=== PATIENT | female | born 1955 | race Caucasian/White ===

== ENCOUNTER 2020-08-27 08:34 | Outpatient (REF) | payer MEDICARE, MEDICAID, SELFPAY ==
--- NOTE | 2020-08-27 | MM_ITS ---
EXAMINATION: ULTRASOUND GUIDED CORE BIOPSY BREAST, LEFT POST PROCEDURE DIGITAL MAMMOGRAM, LEFT CLINICAL INFORMATION: Suspicious periareolar mass 1:00 left breast with ill-defined margins and posterior shadowing. COMPARISON: Mammography 08/03/2020, 08/16/2020, targeted left breast ultrasound 08/16/2020. FINDINGS: Proper informed consent is obtained from the patient after discussion of the procedure, potential risks and complications, and alternatives. Patient was given an opportunity for questions. The patient appeared to understand. The patient consented to the procedure and signed the consent form. GUIDANCE: Ultrasound-guided; aseptic technique. LESION: 1:00 retroareolar mass approximately 2 cm. APPROACH: Oblique lateral medial. LOCAL ANESTHESIA: 17 mL 1% lidocaine. DERMATOTOMY: Single skin nakul dermatotomy performed. NEEDLE: 14-gauge Achieve core biopsy device with 13.5-gauge co-axial guide needle. CORES: 6. CLIP: HydroMARK; shape: butterfly. POST PROCEDURE UNILATERAL DIGITAL MAMMOGRAM: The post biopsy mammogram is performed in separate room using separate digital mammography equipment from the biopsy procedure. CC and ML views are obtained. There are scattered areas of fibroglandular density (breast composition category: b). The clip marker is in position. No gross hematoma. The patient tolerated the procedure well. No immediate complications. Home instructions reviewed with the patient. Final pathology results are pending. MM/MM diagnostic mammo unilat LT IMPRESSION: 1. Status post ultrasound-guided core biopsy left breast. 2. Clip placed: HydroMARK; shape: butterfly. 3. Pathology pending. An addendum report will be issued.
== END 2020-08-27 08:35 | disposition home or self-care (01) ==
LOC: HO.MAMMO 08:34
PROVIDERS: PCP Internal Medicine; Visit Provider Surgery
DX: R92.8 Other abnormal and inconclusive findings on diagnostic imaging of breast (principal); D05.12 Intraductal carcinoma in situ of left breast; Z17.0 Estrogen receptor positive status [ER+]
CPT/HCPCS: 19083; 77065; 88305; 88341; 88342; 88360; 99203

== ENCOUNTER → 2020-09-01 14:09 | Outpatient (BNVA) | payer MEDICARE, MEDICAID, SELFPAY | PROVIDERS: PCP Internal Medicine; Visit Provider Surgery | DX: C50.912 Malignant neoplasm of unspecified site of left female breast (principal); Z98.890 Other specified postprocedural states; Z94.4 Liver transplant status | CPT/HCPCS: 99213 ==

== ENCOUNTER → 2020-09-02 14:30 | Outpatient (BNVA) | payer MEDICARE, MEDICAID, SELFPAY | PROVIDERS: PCP Internal Medicine; Referring Provider Internal Medicine; Visit Provider Internal Medicine Endocrinology, Diabetes & Metabolism | DX: E11.65 Type 2 diabetes mellitus with hyperglycemia (principal); E11.22 Type 2 diabetes mellitus with diabetic chronic kidney disease; N18.30 Chronic kidney disease, stage 3 unspecified; Z79.4 Long term (current) use of insulin; M81.0 Age-related osteoporosis without current pathological fracture; E03.9 Hypothyroidism, unspecified; Z79.899 Other long term (current) drug therapy; Z94.0 Kidney transplant status | CPT/HCPCS: 82947; 99214 ==

== ENCOUNTER 2020-09-16 08:04 | Outpatient (REF) | payer MEDICARE, MEDICAID, SELFPAY | END 2020-09-16 08:05 | disposition home or self-care (01) | LOC: HO.MAMMO 08:04 | PROVIDERS: PCP Internal Medicine; Visit Provider Surgery | DX: Z13.89 Encounter for screening for other disorder (principal) | CPT/HCPCS: J2250; J3010 ==

== ENCOUNTER 2020-09-16 14:09 | Day surgery (SDC) | payer MEDICARE, MEDICAID, SELFPAY ==
--- NOTE | 2020-09-15 08:44 | HO.ANESPROP2 ---
Documented by User: Kathryn Hernandez 09/15/20 08:57 HPI - Anesthesia Eval Consult details Narrative: 64yo F for L sentinal node biopsy with needle localization and L breast lumpectomy PMFSH Past Medical History Medical History (Updated 09/15/20 @ 08:57 by Kathryn Hernandez) Age-related osteoporosis without current pathological fracture Cerebral palsy Chronic kidney disease, stage 3 unspecified Class 1 obesity with body mass index (BMI) of 30.0 to 30.9 in adult Developmental disability Diabetes type 2, uncontrolled Ductal carcinoma in situ of left breast Essential (primary) hypertension Hyperlipidemia, unspecified Hypothyroidism, unspecified Invasive ductal carcinoma of left breast [employer]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 Surgical History Surgical History (Updated 09/15/20 @ 08:57 by Kathryn Hernandez) History of breast surgery History of liver transplant History of splenectomy Social History Social History Alcohol intake: never Smoking Status: Never smoker Second Hand Smoke Exposure: No Advance Directives: No Advance Directives Information Provided: No Meds Allergies Allergy/AdvReac Type Severity Reaction Status Date / Time Peanut Butter Allergy Mild Rash Verified 09/16/20 09:01 PEANUT BUTTER Allergy Mild RASH Uncoded 09/16/20 09:01 Home Medications Medication Instructions Recorded Confirmed Type alcohol swabs pad TOPICAL 08/21/20 09/02/20 History allopurinol 300 mg tablet 300 mg PO DAILY 08/21/20 09/02/20 History blood sugar diagnostic #10 ea 08/21/20 09/02/20 History clonidine HCl 0.3 mg tablet 0.3 mg PO BEDTIME 08/21/20 09/02/20 History furosemide 20 mg tablet 20 mg PO DAILY 08/21/20 09/02/20 History lancets 28 gauge #100 ea 08/21/20 09/02/20 History mycophenolate mofetil 250 mg 250 mg PO BID 08/21/20 09/02/20 History capsule omega-3 fatty acids 1,000 mg 1,000 mg PO DAILY 08/21/20 09/02/20 History capsule pediatric multivitamin 1 tab PO DAILY 08/21/20 09/02/20 History tacrolimus 0.5 mg capsule 0.5 mg PO BID 08/21/20 09/02/20 History aspirin 81 mg tablet,delayed 81 mg PO DAILY 09/02/20 09/02/20 History release Exam Exam Date and Time: September 15, 2020 0844 Pertinent Lab Results Pertinent Lab Results: Laboratory Tests 07/27/20 07/27/20 07/27/20 06:50 06:50 06:50 WBC 13.7 H Hgb 14.1 Hct 43.4 Plt Count 352 Sodium 139 Potassium 4.8 Chloride 105 Bicarbonate 25 Anion Gap 14 BUN 37 H Creatinine 1.18 Est GFR (Non-Af Amer) 46 Fasting Glucose 146 H Hgb A1c (Clinic) Calcium 9.7 Magnesium 1.9 Total Bilirubin 0.4 AST 35 H ALT 48 H Alkaline Phosphatase 148 H Total Protein 7.2 Albumin 3.9 Tacrolimus 2.9 H 09/02/20 15:01 WBC Hgb Hct Plt Count Sodium Potassium Chloride Bicarbonate Anion Gap BUN Creatinine Est GFR (Non-Af Amer) Fasting Glucose Hgb A1c (Clinic) 8.5 H Calcium Magnesium Total Bilirubin AST ALT Alkaline Phosphatase Total Protein Albumin Tacrolimus Assessment and Plan Assessment Anesthesia Assessment: Chart Reviewed Documented by User: Marco Antonio Brown MD 09/16/20 13:40 [facility] Past Medical History Medical History (Updated 09/15/20 @ 08:57 by Kathryn Hernandez) Age-related osteoporosis without current pathological fracture Cerebral palsy Chronic kidney disease, stage 3 unspecified Class 1 obesity with body mass index (BMI) of 30.0 to 30.9 in adult Developmental disability Diabetes type 2, uncontrolled Ductal carcinoma in situ of left breast Essential (primary) hypertension Hyperlipidemia, unspecified Hypothyroidism, unspecified Invasive ductal carcinoma of left breast [facility] (current) use of insulin Type 2 diabetes mellitus with diabetic nephropathy Family History Family History Father Aneurysm Mother Cancer Paternal Grandfather Diabetes Brother No problems noted. Surgical History Surgical History (Updated 09/15/20 @ 08:57 by Kathryn Hernandez) History of breast surgery History of liver transplant History of splenectomy Social History Social History Alcohol intake: never Smoking Status: Never smoker Second Hand Smoke Exposure: No Advance Directives: No Advance Directives Information Provided: No Meds Allergies Allergy/AdvReac Type Severity Reaction Status Date / Time Peanut Butter Allergy Mild Rash Verified 09/16/20 09:01 PEANUT BUTTER Allergy Mild RASH Uncoded 09/16/20 09:01 Home Medications Medication Instructions Recorded Confirmed Type alcohol swabs pad TOPICAL 08/21/20 09/02/20 History allopurinol 300 mg tablet 300 mg PO DAILY 08/21/20 09/02/20 History blood sugar diagnostic #10 ea 08/21/20 09/02/20 History clonidine HCl 0.3 mg tablet 0.3 mg PO BEDTIME 08/21/20 09/02/20 History furosemide 20 mg tablet 20 mg PO DAILY 08/21/20 09/02/20 History lancets 28 gauge #100 ea 08/21/20 09/02/20 History mycophenolate mofetil 250 mg 250 mg PO BID 08/21/20 09/02/20 History capsule omega-3 fatty acids 1,000 mg 1,000 mg PO DAILY 08/21/20 09/02/20 History capsule pediatric multivitamin 1 tab PO DAILY 08/21/20 09/02/20 History tacrolimus 0.5 mg capsule 0.5 mg PO BID 08/21/20 09/02/20 History aspirin 81 mg tablet,delayed 81 mg PO DAILY 09/02/20 09/02/20 History release Exam Airway Mallampati Class: I TM Dist: >3cm Neck ROM: Full Loose/Missing/Broken Teeth: No Heart: rrr Lungs: nl Other: ao Assessment and Plan Assessment Anesthesia Assessment: Anesthesia Plan Discussed and Chart Reviewed Final Anesthetic Review NPO: Yes ASA Class: III Final Preanesthetic Review: No Changes in Pt Med Stat, Meds/Allgs Chart Reviewed, Consent Obtained/Reviewed (Pt signs for herself according to brother Chuck; understands that she will be put to sleep for the procedure) and Anes Risks/Benef Reviewed Patient Risk: Intermediate Procedure Risk: Intermediate Anesthetic Plan Anesthetic Plan: GA Disposition: Standard PACU
[2020-09-15 11:11] VITALS: BMI 31.4
[2020-09-16] VITALS (9 sets, daily range): BP systolic 111–138; BP diastolic 65–73; PULSE 85–104; RESP 14–18; TEMP 36.1–36.3; O2SAT 94–98
--- NOTE | 2020-09-16 | MM_ITS ---
EXAMINATION: MM MAMMOGRAM GUIDED NEEDLE LOCALIZATION BREAST, LEFT MM NEEDLE LOCALIZATION SPECIMEN FROM THE LEFT BREAST CLINICAL INFORMATION: Invasive ductal carcinoma COMPARISON: August 27, 2020 TECHNIQUE NEEDLE LOC: Proper informed consent is obtained from the patient after discussion of the procedure, potential risks and complications, and alternatives including declining the procedure today. Patient was given an opportunity for questions. The patient appeared to understand. The patient consented to the procedure and signed the consent form. GUIDANCE: Digital mammography. APPROACH: Superior. TARGET: Clip. ANESTHESIA: lidocaine 1%: 3 mL. LOCALIZATION MARKER: Spring MammaLok. 5 cm long needle The skin is prepped and local anesthesia administered. The needle is positioned and position assessed with mammography. The wire is hooked into position. [place] needle protector placed. The patient tolerated the procedure well and had no immediate complication. TECHNIQUE SPECIMEN RADIOGRAPH: Imaging of the excised specimen is performed using digital mammography in 1 view. FINDINGS SPECIMEN RADIOGRAPH: The specimen shows the needle and hookwire are delivered intact. The biopsy clip marker and index calcifications are identified in the specimen. Results were called to Dr. Prashant Hus in the operating room at the time of imaging. MM/MM needle loc LT IMPRESSION: 1. Status post left breast needle localization with wire hooked into position. 2. Post operative specimen radiograph obtained.
--- NOTE | 2020-09-16 | NM_ITS ---
EXAMINATION: NM LYMPH SCINTIGRAPHY CLINICAL INFORMATION: Invasive ductal carcinoma left breast. COMPARISON: None TECHNIQUE: Following explaining procedure, benefits and risk, a written consent was obtained from the patient. 2% lidocaine jelly was placed along the left breast areola 30 minutes prior to the procedure. The 2% lidocaine jelly was then cleaned and draped in usual sterile manner. A 0.5 mCi of lymphoseek divided in 4 equal doses was injected in 4 quadrants around the left breast areola. Imaging was obtained at 30 minutes and 1 hour postinjection. Patient tolerated procedure extremely well. FINDINGS: Isotope activity seen on the left breast area in the 4 quadrants post injection. At 1 hour there is trace activity seen along the left anterior axilla. No activity is seen at 30 minutes. NM/NM sentinel node w imaging IMPRESSION: Left breast lymphoscintigraphy reveals subtle sentinel node in the left anterior axilla.
[2020-09-16] MEDS: ceFAZolin Sodium/Dextrose,Iso 2 GM/50 ML PIGGYBACK IV (08:54)
[2020-09-16] MEDS: Lactated Ringers 1,000 ML 100 ML IVCONT (08:55)
--- NOTE | 2020-09-16 09:21 | PC.NURSE ---
PATIENTS RIDE WAS LATE TO HER APPT. SPOKE TO BROTHER RENETTA AND HE STATES THAT SHE IS ABLE TO SIGN FOR HERSELF. PATIENTS STATES SHE SIGNS FOR HERSELF. PATIENT IS COMPETANT. PATIENT STATED SHE FELT SLEEPY AND RETOOK HER POC 162 AT 0918. ASYMPTOMATIC TO ALL OTHER HYPOGLYCEMIA. PATIENTS BROTHER SPOKE TO THE NURSE WHO GIVES HER MEDS AND THEY GAVE HER ALL HER AM MEDS INCLUDING 10 UNITS OF INSULIN. NO METFORMIN NO ASA NO REPIGNOLIDE. PER RENETTA HER BROTHER THE FACILITY GAVE 10UNITS THIS AM PER HER ENDOCRONOLIST. PATIENTS DOESNT HAVE A HEALTH CARE PROXY THAT HE IS AWARE OF BUT WAS TOLD HE AND THE PATIENT CAN FILL ONE OUT TOGETHER FOR FUTURE.
--- NOTE | 2020-09-16 10:50 | PC.NURSE ---
PATIENT BACK FROM NEEDLE LOC. LAYING ON RIGHT SIDE COMFORTABLY. RECHECKING BLOOD SUGAR DUE TO FASTING.
--- NOTE | 2020-09-16 12:10 | PC.NURSE ---
patient off unit again because lymph nodes were not visualized. md chiu aware.
[2020-09-16 12:34] LABS: Glucose, Whole Blood 127 mg/dL (60-115)
[2020-09-16 12:36] LABS: Glucose, Whole Blood 162 mg/dL (60-115)
[2020-09-16 12:38] LABS: Glucose, Whole Blood 131 mg/dL (60-115)
[2020-09-16 12:49] LABS: Glucose, Whole Blood 100 mg/dL (60-115)
--- NOTE | 2020-09-16 13:54 | MHC.SHP ---
Pre-Procedural Eval Section A The patient is an INPATIENT: No Changes since office visit: Yes Patient answered all questions; No Cold of Flu in the past 2 weeks, No New Medical Problems and No Changes in Medication The History & Physical has been completed within 30 days and I have reviewed it.: Yes Section B Chief Complaint: Invasive Ductal Carcinoma of Left Breast Allergies: Allergies Allergy/AdvReac Type Severity Reaction Status Date / Time Peanut Butter Allergy Mild Rash Verified 09/16/20 09:01 PEANUT BUTTER Allergy Mild RASH Uncoded 09/16/20 09:01 Plan Diagnosis/Plan: Unchanged Patient has been examined and remains a candidate for the planned procedure
--- NOTE | 2020-09-16 15:34 | P.BOP_ITS ---
Brief Operative Note Date of procedure: 09/16/20 Pre-op diagnosis: Left breast invasive ductal carcinoma Post-op diagnosis: same Procedure: left breast lumpectomy with needle localization, sentinel node biopsy left axilla Implants: non Surgeon: Prashant Hsu MD Anesthesia: GETA Seal Delivery Vehicle Officer: Alexa Rutherford Estimated blood loss (mL): 20 Pathology: other ( left breast lump, left axillary lymphadenopathy, left sentinel node ( 58 count )) Condition: stable Disposition: PACU
--- NOTE | 2020-09-16 15:36 | W.PM.OPN ---
Operative Note Operative Note Narrative: Date of procedure: 09/16/20 Pre-op diagnosis: Left breast invasive ductal carcinoma Post-op diagnosis: same Procedure: left breast lumpectomy with needle localization, sentinel node biopsy left axilla Indications for procedure: Patient is a 64-year-old female presenting with a recent mammogram which revealed a spiculated mass in the left breast below the nipple. On examination she has a palpable mass with nipple retraction corresponding to the mammographic findings. Radiographic guided core biopsy revealed invasive ductal carcinoma. She presents today for a lumpectomy with needle localization, sentinel node biopsy. Operative findings: Patient was found to have a palpable mass located just below the nipple with possible extension of tumor into the nipple. Minimal radio activity was noted within the axilla. A single sentinel node was identified with very low counts of 58. approximately 4 hard enlarged nodes were identified and sent as left axillary lymphadenopathy Complications: None Procedure details: Patient was brought to the OR placed in a supine position. After administering general anesthesia the patient's left breast and axilla were prepped with ChloraPrep and draped in sterile fashion. A surgical time-out was called and consent confirmed. Patient received preoperative antibiotics and Venodyne boots were in place. Patient had previously undergone localization in the radiology department with the needle in the upper outer quadrant. [place] node identification was also performed in nuclear medicine. Local anesthesia consisting of 0.75% Sensorcaine with epinephrine was then infiltrated around the needle in a curvilinear fashion. Incision was then created around the needle and carried out through subcutaneous tissue. Superior and inferior skin flaps were then created with electrocautery and sharp dissection. Hemostasis was assured using electrocautery and free ties of 3 0 Polysorb suture. Dissection was continued down to chest wall. The specimen was dissected off the chest wall was dissected off the nipple. The possibility of tumor being left nipple was raised. Specimens sent to pathology for further examination. Specimen x-ray confirmed the spiculated mass and localizing needle and clip. Attention was then directed to the axilla. Scanning of the axilla with the gamma probe revealed minimal radio activity. Small amount was noted in the apex of the axilla therefore a curvilinear incision was made just below the hairline in the anterior axillary compartment. This was carried out through subcutaneous tissue passed clavipectoral fascia. Palpation within the axilla revealed approximately 4 enlarged lymph nodes which appeared to be possibly containing metastatic disease. Each was sent as a specimen labeled left axillary lymphadenopathy. Further scanning of the axilla revealed 1 single hot node with a count of approximately 58. This was excised and sent as sentinel node 1. After assuring adequate hemostasis the deep clavipectoral fascia was closed using interrupted 3 0 Polysorb sutures. The superficial breast tissue and axillary tissue was closed using interrupted 3 0 Polysorb sutures. Dermis was reapproximated using interrupted 3 0 Polysorb sutures. Skin was closed in both incisions using a running subcuticular 4 0 Polysorb suture. Steri-Strips 4 x 4 gauze and Tegaderm were then applied. The patient tolerated the procedure well. Sponge instrument needle counts reported as correct. Patient was transferred to PACU in stable condition. Implants: none Surgeon: Prashant Hsu MD Anesthesia: TEGAN Draftsperson: Alexa Rutherford Estimated blood loss (mL): 20 Pathology: other ( left breast lump, left axillary lymphadenopathy, left sentinel node ( 58 count )) Condition: stable Disposition: PACU Breast [place] Node Biopsy Substrate(s) used for sentinel node biopsy in the non-neoadjuvant setting: Radiotracer Substrate(s) used for sentinel node biopsy in the neoadjuvant setting: N/A All colored nodes or non-colored nodes present at the end of a dye filled lymphatic channel were removed, if dye was used as the substrate for localization: N/A All significantly radioactive nodes were removed, if radionuclide was used as the substrate for localization: Yes All palpably suspicious nodes were removed, if present: Yes If clips were placed in pathology-involved nodes, those nodes were identified and removed: Yes General Surg. - Synoptic Notes Breast [place] Node Biopsy Substrate(s) used for sentinel node biopsy in the non-neoadjuvant setting: Radiotracer Substrate(s) used for sentinel node biopsy in the neoadjuvant setting: N/A All colored nodes or non-colored nodes present at the end of a dye filled lymphatic channel were removed, if dye was used as the substrate for localization: N/A All significantly radioactive nodes were removed, if radionuclide was used as the substrate for localization: Yes All palpably suspicious nodes were removed, if present: Yes If clips were placed in pathology-involved nodes, those nodes were identified and removed: Yes
[2020-09-16 16:26] LABS: Glucose, Whole Blood 124 mg/dL (60-115)
--- NOTE | 2020-09-16 17:02 | PC.NURSE ---
RENETTA AN, REVIEWED DISCHARGE INSTRUCTIONS. PER BROTHER PATIENT HAS DAILY NURSING CARE VISIT HER AT HOME SO WILL MONITOR
--- NOTE | 2020-09-16 17:12 | PC.NURSE ---
PATIENT AMBULATED TO BATHROOM STEADY GAIT NO COMPLAINTS OF DIZZINESS. [id number]. LEFT BREAST DRESSING REMAINS CLEAN DRY AND IN PLACE. ASSISTED TO DRESS AT BEDSIDE
[2020-09-17 07:33] LABS: Glucose, Whole Blood 124 mg/dL (60-115)
== END 2020-09-16 17:30 | disposition home or self-care (01) ==
PROVIDERS: PCP Internal Medicine; Visit Provider Surgery
PROC: (CPT 19301; principal; 2020-09-16 12:10)
PROC: (CPT 19301; 2020-09-16 12:10)
DX: C50.912 Malignant neoplasm of unspecified site of left female breast (principal); C77.3 Secondary and unspecified malignant neoplasm of axilla and upper limb lymph nodes; Z17.0 Estrogen receptor positive status [ER+]; M81.0 Age-related osteoporosis without current pathological fracture; G80.9 Cerebral palsy, unspecified; E11.22 Type 2 diabetes mellitus with diabetic chronic kidney disease; E11.21 Type 2 diabetes mellitus with diabetic nephropathy; I12.9 Hypertensive chronic kidney disease with stage 1 through stage 4 chronic kidney disease, or unspecified chronic kidney disease; N18.30 Chronic kidney disease, stage 3 unspecified; Z94.4 Liver transplant status; Z90.81 Acquired absence of spleen; Z79.4 Long term (current) use of insulin; Z79.82 Long term (current) use of aspirin; Z79.899 Other long term (current) drug therapy; Z91.010 Allergy to peanuts
CPT/HCPCS: 19301; 38525; 19281; 78195; 82947; 88305; 88307; 88329; 88341; 88342; A4648; A9520; J0690; J1100; J2250; J2405; J3010

== ENCOUNTER → 2020-09-28 14:17 | Outpatient (BNVA) | payer MEDICARE, MEDICAID, SELFPAY | PROVIDERS: PCP Internal Medicine; Visit Provider Surgery | DX: Z48.3 Aftercare following surgery for neoplasm (principal); C50.912 Malignant neoplasm of unspecified site of left female breast | CPT/HCPCS: 99212 ==

== ENCOUNTER 2020-10-07 07:39 | Inpatient (IN) | payer MEDICARE, MEDICAID, SELFPAY ==
--- NOTE | 2020-10-05 14:42 | P.CONAN_ITS ---
Documented by User: Kathryn Hernandez 10/05/20 14:45 HPI - Anesthesia Eval Consult details Narrative: 65yo F for Mastectomy Modified Radical, LEFT s/p L breast lumpectomy 09/16/20 with GA-LMA 4 PMFSH Past Medical History Medical History (Updated 10/05/20 @ 14:44 by Kathryn Hernandez) Abnormal ultrasound of breast Age-related osteoporosis without current pathological fracture Cerebral palsy Chronic kidney disease, stage 3 unspecified Class 1 obesity with body mass index (BMI) of 30.0 to 30.9 in adult Developmental disability Diabetes type 2, uncontrolled Ductal carcinoma in situ of left breast Essential (primary) hypertension Hyperlipidemia, unspecified Hypothyroidism, unspecified 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 Surgical History Surgical History (Updated 10/04/20 @ 09:22 by Josette Anders) History of breast surgery History of liver transplant History of splenectomy S/P breast lumpectomy Social History Social History Alcohol intake: never Smoking Status: Never smoker Second Hand Smoke Exposure: No Use of substances other than those prescribed or required for medical reasons: No Advance Directives: No Advance Directives Information Provided: Yes Meds Allergies Allergy/AdvReac Type Severity Reaction Status Date / Time Peanut Butter Allergy Mild Rash Verified 09/16/20 09:01 Home Medications Medication Instructions Recorded Confirmed Type alcohol swabs pad TOPICAL 08/21/20 09/02/20 History allopurinol 300 mg tablet 300 mg PO DAILY 08/21/20 10/04/20 History blood sugar diagnostic #10 ea 08/21/20 09/02/20 History clonidine HCl 0.3 mg tablet 0.3 mg PO BEDTIME 08/21/20 10/04/20 History furosemide 20 mg tablet 20 mg PO DAILY 08/21/20 10/04/20 History lancets 28 gauge #100 ea 08/21/20 09/02/20 History mycophenolate mofetil 250 mg 250 mg PO BID 08/21/20 10/04/20 History capsule omega-3 fatty acids 1,000 mg 1,000 mg PO DAILY 08/21/20 10/04/20 History capsule pediatric multivitamin 1 tab PO DAILY 08/21/20 10/04/20 History tacrolimus 0.5 mg capsule 0.5 mg PO BID 08/21/20 10/04/20 History aspirin 81 mg tablet,delayed 81 mg PO DAILY 09/02/20 10/04/20 History release Tresiba FlexTouch U-100 20 unit SUBCUT QAM 10/04/20 History Exam Exam Date and Time: October 05, 2020 1442 Pertinent Lab Results Pertinent Lab Results: Laboratory Tests 07/27/20 07/27/20 06:50 06:50 WBC 13.7 H Hgb 14.1 Hct 43.4 Plt Count 352 Sodium 139 Potassium 4.8 Chloride 105 BUN 37 H Creatinine 1.18 Assessment and Plan Assessment Anesthesia Assessment: Chart Reviewed Documented by User: Merlin Hernandez 10/07/20 09:21 [facility] Past Medical History Medical History (Updated 10/05/20 @ 14:44 by Kathryn Hernandez) Abnormal ultrasound of breast Age-related osteoporosis without current pathological fracture Cerebral palsy Chronic kidney disease, stage 3 unspecified Class 1 obesity with body mass index (BMI) of 30.0 to 30.9 in adult Developmental disability Diabetes type 2, uncontrolled Ductal carcinoma in situ of left breast Essential (primary) hypertension Hyperlipidemia, unspecified Hypothyroidism, unspecified Invasive ductal carcinoma of left breast assisted (current) use of insulin Type 2 diabetes mellitus with diabetic nephropathy Family History Family History Father Aneurysm Mother Cancer Paternal Grandfather Diabetes Brother No problems noted. Surgical History Surgical History (Updated 10/04/20 @ 09:22 by Josette Anders) History of breast surgery History of liver transplant History of splenectomy S/P breast lumpectomy Social History Social History Alcohol intake: never Smoking Status: Never smoker Second Hand Smoke Exposure: No Use of substances other than those prescribed or required for medical reasons: No Advance Directives: No Advance Directives Information Provided: Yes Meds Allergies Allergy/AdvReac Type Severity Reaction Status Date / Time Peanut Butter Allergy Mild Rash Verified 09/16/20 09:01 Home Medications Medication Instructions Recorded Confirmed Type alcohol swabs pad TOPICAL 08/21/20 09/02/20 History allopurinol 300 mg tablet 300 mg PO DAILY 08/21/20 10/04/20 History blood sugar diagnostic #10 ea 08/21/20 09/02/20 History clonidine HCl 0.3 mg tablet 0.3 mg PO BEDTIME 08/21/20 10/04/20 History furosemide 20 mg tablet 20 mg PO DAILY 08/21/20 10/04/20 History lancets 28 gauge #100 ea 08/21/20 09/02/20 History mycophenolate mofetil 250 mg 250 mg PO BID 08/21/20 10/04/20 History capsule omega-3 fatty acids 1,000 mg 1,000 mg PO DAILY 08/21/20 10/04/20 History capsule pediatric multivitamin 1 tab PO DAILY 08/21/20 10/04/20 History tacrolimus 0.5 mg capsule 0.5 mg PO BID 08/21/20 10/04/20 History aspirin 81 mg tablet,delayed 81 mg PO DAILY 09/02/20 10/04/20 History release Tresiba FlexTouch U-100 20 unit SUBCUT QAM 10/04/20 History Exam Airway Mallampati Class: I TM Dist: <=3cm Neck ROM: Full Loose/Missing/Broken Teeth: Yes Assessment and Plan Assessment Anesthesia Assessment: Anesthesia Plan Discussed and Chart Reviewed Final Anesthetic Review NPO: Yes ASA Class: IV Final Preanesthetic Review: No Changes in Pt Med Stat, Meds/Allgs Chart Reviewed, Consent Obtained/Reviewed and Anes Risks/Benef Reviewed Patient Risk: High Procedure Risk: Intermediate Anesthetic Plan Anesthetic Plan: GA and Agree w/ Assess. and Plan Disposition: Standard PACU
[2020-10-07] VITALS (24 sets, daily range): BP systolic 68–139; BP diastolic 37–74; PULSE 71–96; RESP 12–25; TEMP 35.6–38.1; O2SAT 90–100; BMI 31.6
--- NOTE | 2020-10-07 | XR_ITS ---
EXAMINATION: XR CHEST CLINICAL INFORMATION: ET tube placement. COMPARISON: Chest x-ray 11/14/2007 TECHNIQUE: Frontal portable view of the chest was obtained. 5:49 PM FINDINGS: Tubes and lines: 1. Endotracheal tube 2.6 cm above corbin. 2. Right IJ catheter tip at cavoatrial junction. 3. Gastric tube in stomach passing below lower margin of the film. Surgical skin clips in the left axillary region. There are 2 surgical drains over the left axilla and lower chest. No acute abnormality. No pulmonary vascular congestion. No focal consolidation, no pleural effusion pneumothorax. XR/XR chest 1V IMPRESSION: 1. Endotracheal tube 2.6 cm above corbin. 2. Right IJ catheter tip at cavoatrial junction. 3. Gastric tube in stomach passing below lower margin of the film. 4. Postsurgical change of left axilla/chest wall. 5. Lungs are clear.
[2020-10-07 08:19] LABS: COVID-19 Test Negative (Negative); IDNOW Serial# 9DD0AD1C
[2020-10-07] MEDS: ceFAZolin Sodium/Dextrose,Iso 2 GM/50 ML PIGGYBACK IV (08:19)
[2020-10-07] MEDS: Lactated Ringers 1,000 ML 100 ML IVCONT (08:19)
--- NOTE | 2020-10-07 09:03 | MHC.SHP ---
Pre-Procedural Eval Section A The patient is an INPATIENT: No Changes since office visit: Yes Patient answered all questions; No Cold of Flu in the past 2 weeks, No New Medical Problems and No Changes in Medication The History & Physical has been completed within 30 days and I have reviewed it.: Yes Section B Chief Complaint: s/p left radical mastectomy Allergies: Allergies Allergy/AdvReac Type Severity Reaction Status Date / Time Peanut Butter Allergy Mild Rash Verified 09/16/20 09:01 Plan Diagnosis/Plan: Unchanged Patient has been examined and remains a candidate for the planned procedure
--- NOTE | 2020-10-07 09:10 | PM.OP ---
Brief Operative Note Date of Service: 10/07/20 Pre-op diagnosis: Invasive ductal carcinoma left breast Post-op diagnosis: same Procedure: Modified radical mastectomy left breast Implants: None Surgeon: Prashant Hsu MD Anesthesia: GETA Estimated blood loss (mL): 25
[2020-10-07 09:23] LABS: Glucose, Whole Blood 138 mg/dL (60-115)
--- NOTE | 2020-10-07 12:17 | PM.OP ---
Brief Operative Note Date of Service: 10/07/20 Pre-op diagnosis: Invasive ductal ca, left breast Post-op diagnosis: same Procedure: Left modified radical mastectomy Implants: none Surgeon: Prashant Hsu MD Anesthesia: GLMA Estimated blood loss (mL): 25 Pathology: other (left breast and axilla) Condition: stable Disposition: PACU
--- NOTE | 2020-10-07 14:17 | W.PM.OPN ---
Operative Note Operative Note Date of Service: 10/07/20 Narrative: Preoperative diagnosis: Left breast invasive ductal carcinoma Postoperative diagnosis: Same Procedure: left modified radical mastectomy Surgeon: Prashant Hsu MD Operations And Maintenance Manager: None Indications for procedure patient is a 65-year-old female presenting with a recently diagnosed left breast invasive ductal carcinoma. She is status post lumpectomy with needle localization and sentinel node biopsy. Pathology revealed extension of tumor to the region of the nipple as well as positive margins in the superior margins. Four of 5 sentinel nodes were positive for breast cancer. She presents today for a left modified radical mastectomy Operative findings patient was found to have several enlarged lymph nodes in the axilla as well as scar tissue extending from below the nipple. No obvious tumor was noted at the margins. Specimen: Left breast and axillary node Complications: None Estimated blood loss: 25 mL Procedure details: Patient was brought to the OR placed in a supine position. After administering general anesthesia the patient's left breast and axilla was prepped with ChloraPrep and draped in a sterile fashion. A surgical time-out was called the consent confirmed. Patient received preoperative antibiotics and Venodyne boots were placed. Local anesthesia consisting of 0.75 % Sensorcaine was infiltrated around the left breast. Elliptical incision was made to include the nipple and prior incisions extending from the medial chest at the lateral border of the sternum and proceeding laterally and superiorly towards the axilla. Beginning with the superior flap electrocautery was used to dissect the skin flaps over the breast tissue although 8 to the superior margins of the the level of the clavicle. Inferior flap was then dissected again using electrocautery down to the lower costal margin. Dissection was continued laterally to the edge of the pectoralis major muscle and then around towards the pectoralis minor muscle. The inferior border of the latissimus Alfaro muscle was also dissected up towards the axilla. Starting medially and superiorly the breast was then dissected off the chest wall using electrocautery. Careful hemostasis was assured at all times using electrocautery as the breast was dissected off the chest wall towards the axilla. When the breast was completely dissected off the the chest wall dissection was begun in the left axilla. Dissection was continued around the inferior surface of the pectoralis major and pectoralis minor. Level 2 nodes were included in the specimen. Dissection was continued up to the axillary vein which was identified. A rim of tissue was a left intact on the axillary vein. The long thoracic nerve was identified and left intact. The thoracodorsal vessels and nerve were identified and preserved. Nodes overlying the nerve bundles were then dissected free and the specimen sent to pathology for further examination. Wounds were thoroughly irrigated with saline solution and checked for hemostasis. No bleeding was noted at the time of procedure. Two 10. Warren-Hamilton drains were left in place 1 in the inferior surface of the breast a 2nd in the axilla. These were brought out through separate stab wounds in case secured to the skin using a 3-0 nylon suture. Dermis was then reapproximated using interrupted 3 0 Polysorb sutures. Skin was then closed using a running subcuticular 4-0 Polysorb suture. Sterile dressings consisting of 4 x 4 gauze and Tegaderm were then applied to the entire incision. Dressings were applied to the drain sites as well. The drains were connected to bulb suction. The patient tolerated the procedure well. Sponge, instrument, and needle counts reported as correct. Patient was transferred to PACU in stable condition. Breast Axillary Dissection Resection was performed within the boundaries of the axillary vein, chest wall (serratus anterior), and latissimus dorsi: Yes The long thoracic and thoracodorsal nerves were spared during dissection: Yes Attempts were made to spare the intercostobrachial nerves during dissection if possible: No If one or more level III nodes is/are removed, then document why: n/a General Surg. - Synoptic Notes Breast Axillary Dissection Resection was performed within the boundaries of the axillary vein, chest wall (serratus anterior), and latissimus dorsi: Yes The long thoracic and thoracodorsal nerves were spared during dissection: Yes Attempts were made to spare the intercostobrachial nerves during dissection if possible: No If one or more level III nodes is/are removed, then document why: n/a
--- NOTE | 2020-10-07 15:23 | P.EN_ITS ---
Event Note Date of Service: 10/07/20 Event Note: Patient found to have increased bleeding from drains while in nuvia very room. Patient's flaps show evidence of underlying hematoma. Applied pressure to the wounds with binder but she continues to have evidence of bleeding. Discussed with patient and her brother Chuck. I recommended an emergency return to OR to control the bleeding. Family agrees to the plan and consent to drainage of left breast hematoma.
--- NOTE | 2020-10-07 16:46 | PM.OP ---
Brief Operative Note Date of Service: 10/07/20 Pre-op diagnosis: Hematoma left breast s/p left modified radical mastectomy Post-op diagnosis: same Procedure: Drainage of hematoma left breast Implants: none Surgeon: Prashant Hsu MD Anesthesia: GETA Estimated blood loss (mL): 2,000 Pathology: none sent Condition: critical Disposition: ICU
--- NOTE | 2020-10-07 16:58 | W.PM.OPN ---
Operative Note Operative Note Date of Service: 10/07/20 Narrative: Preoperative diagnosis: Hematoma left breast status post modified radical mastectomy Postoperative diagnosis same Procedure: Drainage of hematoma left breast status post modified radical mastectomy Surgeon: Prashant Hsu MD Anesthesia: General endotracheal Indications for procedure: Patient is status post modified radical mastectomy left side earlier today noted to have increased swelling and drainage from the Warren-Hamilton drain with decreased blood pressure suggestive of ongoing bleeding. Operative findings: Approximately 2 L of blood below the breast flaps. One small vessel was noted to be bleeding. This was ligated. Specimen: None Estimated blood loss: 2 L Complications: Bleeding vessel Procedure details: Patient was brought to the OR emergently and placed in a supine position. After administering general anesthesia a surgical time-out was called. Skin was prepped with Betadine and draped in a sterile fashion. Previous incision was opened and a large hematoma identified. This was evacuated and the wounds packed with lap pads. A small bleeding vessel was noted in the surface of the pectoralis muscle laterally which was actively bleeding. This was ligated with 3-0 Polysorb suture. Additional small areas of oozing were identified but no bleeding vessels could be identified. Pressures went held in the wounds examined. Areas of oozing were cauterized with electrocautery. Surgicel was also used to control any additional oozing. The wounds were observed for approximately 30 minutes to assure no further vessels bleeding. Skin was then reapproximated with interrupted 3-0 Polysorb sutures in dermis. Skin was closed using skin rené. Sterile dressings consisting of 4 x 4 gauze and ABD pads were then applied. A breast binder was then applied as well. The patient will be observed in the ICU following this procedure.
--- NOTE | 2020-10-07 17:52 | PM.CCN ---
Critical Care Event Note Summary Code activated: No Narrative: 65-year-old lady with remote history of liver transplant in 2000, underlying diabetes mellitus, obesity, hypertension underwent elective left total mastectomy earlier today for breast cancer complicated by postoperative bleeding requiring re-exploration and hematoma evacuation, kept intubated at the end of the case and transferred to intensive care unit for close monitoring. Critical Care Time (minutes): 0
[2020-10-07 18:10] LABS: MANUAL DIFF FLAG NO
[2020-10-07 18:18] LABS: INTERNATIONAL NORM RATIO 1.2 (0.9-1.1)
[2020-10-07 18:21] LABS: Base Excess VBG -6.9 mmol/L; HCO3 VBG 21 mmol/L; PCO2 VBG 50 mmhg; PO2 VBG 55 mmhg; pH VBG 7.24 (7.32-7.43)
[2020-10-07 18:22] LABS: Oxygen Saturation VBG 88.5 %
[2020-10-07 18:27] LABS: Basophils Absolute Auto 0.1 X10*3/uL (0.0-0.2); Basophils Percent Auto 0.4 % (0-2); Hematocrit 40.3 % (37-47); Hemoglobin 13.8 g/dl (12.0-16.0); Imm Gran Abs Auto 0.04 X10*3/uL (0.00-0.03); Imm Gran Pct Auto 0.3 % (0.0-0.4); Lymphocytes Absolute Auto 1.5 X10*3/uL (1.2-4.9); Lymphocytes Percent Auto 12.9 % (20-40); Mean Corpuscular HGB Conc 34.2 g/dl (31.0-35.0); Mean Corpuscular Hemoglobin 32.5 pg (27.0-33.0); Mean Corpuscular Volume 94.8 fL (80-98); Mean Platelet Volume 11.1 fL (9.4-12.3); Monocytes Absolute Auto 1.5 X10*3/uL (0.1-1.2); Monocytes Percent Auto 12.6 % (2-11); NRBC Pct Auto 0.3 /100WBC (0.0-0.2); Neutrophils Absolute Auto 8.6 X10*3/uL (2.0-8.3); Neutrophils Percent Auto 73.8 % (45-73); Platelet Count 194 X10*3/uL (160-400); Red Blood Count 4.25 X10*6/uL (4.20-5.50); Red Cell Distribution Width 14.9 % (11.0-16.0); White Blood Count 11.6 X10*3/uL (4.8-10.8)
[2020-10-07 18:29] LABS: Glucose, Whole Blood 252 mg/dL (60-115)
[2020-10-07 18:35] LABS: Anion Gap 15 (12-20); Blood Urea Nitrogen 28 mg/dL (9-16); Calcium 7.5 mg/dL (8.4-10.2); Carbon Dioxide 21 mmol/L (22-29); Chloride 107 mmol/L (96-108); Creatinine Clr Calc Pharmacy 53.1; Estimated Glomerular Filt Rate 57; Glucose Random 264 mg/dL (60-115); Potassium 4.8 mmol/l (3.3-5.1); Sodium 138 mmol/L (135-145)
[2020-10-07] MEDS: Dextrose 5 % and Lactated Ring 1,000 ML 125 ML IVCONT (19:23)
[2020-10-07] MEDS: propofoL 1,000 MG/100 ML VIAL 13.65 MG IVCONT ×2 (19:23→22:23)
[2020-10-07] MEDS: Albumin Human 25 % 100 ML IV (19:24)
[2020-10-07] MEDS: 0.9 % Sodium Chloride Flush 3 ML SYRINGE IVFLUSH ×2 (19:24→23:24)
[2020-10-08] VITALS (22 sets, daily range): BP systolic 99–150; BP diastolic 55–76; PULSE 77–110; RESP 15–20; TEMP 35.5–37.6; O2SAT 96–100; BMI 31.6
[2020-10-08] MEDS: Dextrose 5 % and Lactated Ring 1,000 ML 125 ML IVCONT (03:05)
[2020-10-08] MEDS: propofoL 1,000 MG/100 ML VIAL 13.65 MG IVCONT (04:33)
[2020-10-08 06:00] LABS: MANUAL DIFF FLAG NO
[2020-10-08 06:04] LABS: Basophils Percent Auto 0.5 % (0-2); Eosinophils Percent Auto 0.4 % (0-4); Hematocrit 36.1 % (37-47); Hemoglobin 12.6 g/dl (12.0-16.0); Imm Gran Abs Auto 0.02 X10*3/uL (0.00-0.03); Imm Gran Pct Auto 0.2 % (0.0-0.4); Lymphocytes Absolute Auto 3.5 X10*3/uL (1.2-4.9); Lymphocytes Percent Auto 41.7 % (20-40); Mean Corpuscular HGB Conc 34.9 g/dl (31.0-35.0); Mean Corpuscular Hemoglobin 32.6 pg (27.0-33.0); Mean Corpuscular Volume 93.5 fL (80-98); Monocytes Absolute Auto 1.4 X10*3/uL (0.1-1.2); Monocytes Percent Auto 16.1 % (2-11); NRBC Pct Auto 0.4 /100WBC (0.0-0.2); Neutrophils Absolute Auto 3.5 X10*3/uL (2.0-8.3); Neutrophils Percent Auto 41.1 % (45-73); Platelet Count 183 X10*3/uL (160-400); Red Blood Count 3.86 X10*6/uL (4.20-5.50); Red Cell Distribution Width 15.3 % (11.0-16.0); White Blood Count 8.4 X10*3/uL (4.8-10.8)
[2020-10-08 06:34] LABS: Base Excess VBG 1.2 mmol/L; HCO3 VBG 25 mmol/L; PCO2 VBG 36 mmhg; PO2 VBG 38 mmhg; pH VBG 7.46 (7.32-7.43)
[2020-10-08 06:35] LABS: Oxygen Saturation VBG 79.9 %
[2020-10-08 06:42] LABS: Anion Gap 12 (12-20); Blood Urea Nitrogen 21 mg/dL (9-16); Calcium 7.8 mg/dL (8.4-10.2); Carbon Dioxide 23 mmol/L (22-29); Chloride 105 mmol/L (96-108); Creatinine Clr Calc Pharmacy 60.6; Estimated Glomerular Filt Rate > 60; Glucose Fasting 285 mg/dL (60-99); Potassium 4.4 mmol/l (3.3-5.1); Sodium 136 mmol/L (135-145)
[2020-10-08 06:49] LABS: Alanine Aminotransferase 170 U/L (0-31); Albumin Level 3.1 g/dL (3.5-5.0); Alkaline Phosphatase 126 U/L (39-117); Anion Gap 12 (12-20); Aspartate Amino Transferase 155 U/L (5-31); Bilirubin Total 0.9 mg/dL (0.0-1.0); Blood Urea Nitrogen 21 mg/dL (9-16); Calcium 7.9 mg/dL (8.4-10.2); Carbon Dioxide 24 mmol/L (22-29); Chloride 105 mmol/L (96-108); Creatinine Clr Calc Pharmacy 60.6; Estimated Glomerular Filt Rate > 60; Glucose Random 289 mg/dL (60-115); Magnesium 1.5 mg/dL (1.6-2.6); Phosphorus 2.3 mg/dL (2.7-4.5); Potassium 4.4 mmol/l (3.3-5.1); Sodium 137 mmol/L (135-145); Total Protein 5.1 g/dL (6.5-8.0)
[2020-10-08] MEDS: oxyCODONE HCl Immed Release 5 MG TABLET PO (07:55)
--- NOTE | 2020-10-08 08:15 | HO.POSTANES ---
Post Anesthesia Evaluation Post Anesthesia Evaluation Vital Signs: Vital Signs Temp Pulse Resp BP Pulse Ox 10/08/20 08:00 99.7 F 94 20 104/55 L 96 10/08/20 07:00 99.7 F 88 17 99/55 L 97 10/08/20 06:00 99.5 F 85 20 105/61 97 10/08/20 04:46 99.5 F 84 20 120/73 97 10/08/20 03:57 99.3 F 85 20 106/70 97 10/08/20 03:00 99.0 F 84 20 114/69 98 10/08/20 01:54 98.8 F 86 20 120/68 98 10/08/20 01:00 80 20 109/65 98 10/08/20 00:00 97.9 F 78 20 109/64 97 10/07/20 23:00 97.7 F 82 20 107/61 97 10/07/20 21:54 97 F 73 20 99/61 98 10/07/20 21:00 100.6 F H 71 25 H 95/51 L 92 Anesthesia: General Endotracheal-GETA Mental Status: Sedated Pain Control: Satisfactory Nausea/Vomiting: None Hydration: Adequate Anesthesia-Related Issues: No Anes. Related Issues (Patient still intubated but had uneventful night, VSS, making urine and plan by ICU is wean off and extubate.)
[2020-10-08] MEDS: Magnesium Sulfate/H2O 2 GM/50 ML PIGGYBACK IV (08:32)
--- NOTE | 2020-10-08 08:34 | P.PNGS_ITS ---
Subjective Subjective Interval history: POD#1 Status post left modified radical mastectomy, drainage of hematoma, patient remains intubated and sedated. Physical Exam Vital Signs: Vital Signs: Last Vital Signs Temp 99.7 F 10/08/20 08:00 Pulse 94 10/08/20 08:00 Resp 20 10/08/20 08:00 BP 104/55 L 10/08/20 08:00 Pulse Ox 96 10/08/20 08:00 Body Mass Index 31.6 Const: Other: Sedated on vent Chest: Other: dressings clean and intact, no palpable hematoma in the flaps. Warren-Hamilton draining serosanguineous discharge GI: Other: soft, nondistended, multiple hernias Skin: Other: cool and dry Extrem: Other: 1+ edema Progress Note: A&P Assessment and plan (1) Invasive ductal carcinoma of left breast: Status: Acute Assessment and Plan: Seema is s/p left modified radical mastectomy complicated by hematoma requiring re-exploration drainage of hematoma. She was left intubated on sedation overnight and placed in the ICU. Examination today reveals some serosanguineous discharge from the Warren-Hamilton drains. No evidence of enlarging hematoma at this time. Vent and BP management per ICU team. Patient's family updated this morning (Chuck David: Brother ). Fall Risk Details Current Medications: Current Medications Generic Name Dose Route Start Last Admin Trade Name Freq PRN Reason Stop Dose Admin Acetaminophen 650 mg 10/07/20 16:35 Acetaminophen 325 Mg Tablet PO Q6H PRN Pain, Mild (Pain Scale 1-3) Al Hydroxide/Mg Hydroxide 30 ml 10/07/20 16:35 Magnesium Hydrox/Alum Hydrox 30 Ml Oral.Susp PO Q4H PRN Heartburn/Nausea Docusate Sodium 100 mg 10/07/20 16:35 Docusate Sodium 100 Mg Capsule PO DAILY PRN Constipation Dextrose/Lactated Ringer's 1,000 mls @ 125 mls/hr 10/07/20 16:35 10/08/20 08:32 D5lr IVCONT 0 mls/hr .Q8H TAMMY Infusion Phenylephrine HCl 20 mg/ 252 mls @ 0 mls/hr 10/07/20 17:30 Sodium Chloride IVCONT .Q0M TAMMY Protocol Per Protocol Propofol 1,000 mg in 100 mls @ 0 mls/hr 10/07/20 17:30 10/08/20 06:12 Diprivan IVCONT 40 mcg/kg/min .Q0M TAMMY 18.2 mls/hr Titration Protocol Per Protocol Magnesium Sulfate 2 gm in 50 mls @ 25 mls/hr 10/08/20 08:04 10/08/20 08:32 IV 10/08/20 10:03 25 mls/hr ONCE ONE Administration Potassium Phosphate 30 mmol/ 510 mls @ 85 mls/hr 10/08/20 08:04 Sodium Chloride IV 10/08/20 14:03 ONCE ONE Morphine Sulfate 2 mg 10/07/20 16:35 Morphine Sulfate 2 Mg/Ml Cartridge IVPUSH Q3H PRN Pain, Severe (Pain Scale 7-10) Ondansetron HCl 4 mg 10/07/20 16:35 Ondansetron Hcl 4 Mg/2 Ml Vial IVPUSH Q8H PRN Nausea and Vomiting Oxycodone HCl 5 mg 10/07/20 16:35 10/08/20 07:55 Oxycodone Hcl Immed Release 5 Mg Tablet PO 5 mg Q4H PRN Administration Pain, Moderate (Pain Scale 4-6 Pharmacy Consult 1 each 10/07/20 16:35 Consult Rx Perform Med Rec MISCELLANE ONCE PRN Consult order Sodium Chloride 3 ml 10/07/20 16:35 10/08/20 08:30 0.9 % Sodium Chloride Flush 3 Ml Syringe IVFLUSH Not Given QSHIFT [facility] Zolpidem Tartrate 5 mg 10/07/20 16:35 Zolpidem Tartrate 5 Mg Tablet PO BEDTIME PRN Insomnia Time Spent With Patient Time: Total time spent is greater than 50% in coordination of care (as documented) at patient's floor/unit and/or counseling patient: Time with patient: 15 - 24 minutes Procedures Abscess I/D Date of Service: 10/08/20
[2020-10-08] MEDS: Potassium Phosphate 30 MMOL in 0.9 % Sodium Chloride 500 ML 85 MMOL IV (09:26)
--- NOTE | 2020-10-08 11:07 | PC.NURSE ---
EXTUBATED TO NASAL CANNULA. OFFERS NO C/O OTHER THAN BEING TIRED MEDICATED FOR PAIN PRIOR TO EXTUBATION WITH OXYCODONE. BINDER READJUSTED, ALEX DRAINS WNL SURIGICAL SITE WNL, SMALL AMOUT OF LEFT UPPER CHEST SOFLTY SWELLING. SEEN BY DR HENAO
--- NOTE | 2020-10-08 14:31 | PM.CCPN ---
Subjective Subjective Date of Service: 10/08/20 Interval History: 65-year-old lady with underlying history of remote liver transplant, developmental delay, diabetes mellitus, hypothyroidism, recent diagnosis of breast cancer admitted on 10/07/2020 for an elective left breast radical mastectomy post surgical. Complicated by development of surgical site hematoma requiring evacuation, patient transferred to intensive care unit intubated and extubated uneventfully this a.m.. Physical Exam Vital Signs: Vital Signs: Last Vital Signs Temp 98.4 F 10/08/20 12:44 Pulse 94 10/08/20 12:44 Resp 19 10/08/20 12:44 BP 102/76 10/08/20 12:44 Pulse Ox 98 10/08/20 12:44 Body Mass Index 31.6 Const: General: no acute distress, alert and awake Eyes: Sclerae: sclerae normal EOM: EOMs intact bilaterally Neck: Neck: Yes no lymphadenopathy, Yes trachea midline and Yes supple Chest: Breast/axilla inspection: Other ( Left-sided surgical site ALEX drains with sanguinous drainage) Resp: Effort & Inspection: normal respiratory effort and no respiratory distress Auscultation: clear to auscultation bilaterally Cardio: Rate: regular rate Rhythm: regular rhythm Heart sounds: no gallops, no murmurs and no rubs GI: Palpation (GI): Soft to palpation and Other GI palpation findings present ( Nontender) Auscultation: normal bowel sounds Extrem: General: Yes no pedal edema, No clubbing and No cyanosis Objective Data Labs CBC & Chem 7: 10/08/20 05:30 10/08/20 05:30 Labs: Laboratory Results - last 24 hr 10/07/20 10/07/20 10/07/20 17:29 17:54 17:54 WBC 11.6 H RBC 4.25 Hgb 13.8 Hct 40.3 MCV 94.8 MCH 32.5 MCHC 34.2 RDW 14.9 Plt Count 194 MPV 11.1 Immature Gran % (Auto) 0.3 Neut % (Auto) 73.8 H Lymph % (Auto) 12.9 L Oliver % (Auto) 12.6 H Eos % (Auto) 0.0 Baso % (Auto) 0.4 Lymph # (Auto) 1.5 Oliver # (Auto) 1.5 H Eos # (Auto) 0.0 Baso # (Auto) 0.1 Abs Immat Gran (auto) 0.04 H Absolute Neuts (auto) 8.6 H Absolute Nucleated RBC 0.030 H Nucleated RBC % (auto) 0.3 H PT 14.0 H INR 1.2 H VBG pH VBG pCO2 VBG Oxygen Liters/Min VBG pO2 VBG HCO3 VBG O2 Saturation VBG Base Excess Sodium Potassium Chloride Carbon Dioxide Anion Gap BUN Creatinine Estim Creat Clear Calc Estimated GFR POC Glucose 252 H Random Glucose Fasting Glucose Calcium Phosphorus Magnesium Total Bilirubin AST ALT Alkaline Phosphatase Total Protein Albumin Blood Type Antibody Screen Antibody Identification ROMARIO, Polyspecific Crossmatch 10/07/20 10/07/20 10/07/20 17:54 17:54 18:23 WBC RBC Hgb Hct MCV MCH MCHC RDW Plt Count MPV Immature Gran % (Auto) Neut % (Auto) Lymph % (Auto) Oliver % (Auto) Eos % (Auto) Baso % (Auto) Lymph # (Auto) Oliver # (Auto) Eos # (Auto) Baso # (Auto) Abs Immat Gran (auto) Absolute Neuts (auto) Absolute Nucleated RBC Nucleated RBC % (auto) PT INR VBG pH 7.24 L VBG pCO2 50 VBG Oxygen Liters/Min Not Reportable VBG pO2 55 VBG HCO3 21 VBG O2 Saturation 88.5 VBG Base Excess -6.9 Sodium 138 Potassium 4.8 Chloride 107 Carbon Dioxide 21 L Anion Gap 15 BUN 28 H Creatinine 0.97 Estim Creat Clear Calc 53.1 Estimated GFR 57 POC Glucose Random Glucose 264 H Fasting Glucose Calcium 7.5 L Phosphorus Magnesium Total Bilirubin AST ALT Alkaline Phosphatase Total Protein Albumin Blood Type AB Negative Antibody Screen NEGATIVE Antibody Identification Negative ROMARIO, Polyspecific NEGATIVE Crossmatch See Detail 10/08/20 10/08/20 10/08/20 05:30 05:30 05:30 WBC 8.4 RBC 3.86 L Hgb 12.6 Hct 36.1 L MCV 93.5 MCH 32.6 MCHC 34.9 RDW 15.3 Plt Count 183 MPV 11.0 Immature Gran % (Auto) 0.2 Neut % (Auto) 41.1 L Lymph % (Auto) 41.7 H Oliver % (Auto) 16.1 H Eos % (Auto) 0.4 Baso % (Auto) 0.5 Lymph # (Auto) 3.5 Oliver # (Auto) 1.4 H Eos # (Auto) 0.0 Baso # (Auto) 0.0 Abs Immat Gran (auto) 0.02 Absolute Neuts (auto) 3.5 Absolute Nucleated RBC 0.030 H Nucleated RBC % (auto) 0.4 H PT INR VBG pH 7.46 H VBG pCO2 36 VBG Oxygen Liters/Min Not Reportable VBG pO2 38 VBG HCO3 25 VBG O2 Saturation 79.9 VBG Base Excess 1.2 Sodium 137 Potassium 4.4 Chloride 105 Carbon Dioxide 24 Anion Gap 12 BUN 21 H Creatinine 0.85 Estim Creat Clear Calc 60.6 Estimated GFR > 60 POC Glucose Random Glucose 289 H Fasting Glucose Calcium 7.9 L Phosphorus 2.3 L Magnesium 1.5 L Total Bilirubin 0.9 AST 155 H ALT 170 H Alkaline Phosphatase 126 H Total Protein 5.1 L Albumin 3.1 L Blood Type Antibody Screen Antibody Identification ROMARIO, Polyspecific Crossmatch 10/08/20 05:30 WBC RBC Hgb Hct MCV MCH MCHC RDW Plt Count MPV Immature Gran % (Auto) Neut % (Auto) Lymph % (Auto) Oliver % (Auto) Eos % (Auto) Baso % (Auto) Lymph # (Auto) Oliver # (Auto) Eos # (Auto) Baso # (Auto) Abs Immat Gran (auto) Absolute Neuts (auto) Absolute Nucleated RBC Nucleated RBC % (auto) PT INR VBG pH VBG pCO2 VBG Oxygen Liters/Min VBG pO2 VBG HCO3 VBG O2 Saturation VBG Base Excess Sodium 136 Potassium 4.4 Chloride 105 Carbon Dioxide 23 Anion Gap 12 BUN 21 H Creatinine 0.85 Estim Creat Clear Calc 60.6 Estimated GFR > 60 POC Glucose Random Glucose Fasting Glucose 285 H Calcium 7.8 L Phosphorus Magnesium Total Bilirubin AST ALT Alkaline Phosphatase Total Protein Albumin Blood Type Antibody Screen Antibody Identification ROMARIO, Polyspecific Crossmatch Progress Note: A&P Assessment and plan (1) Diabetes type 2, uncontrolled: Status: Acute Assessment and Plan: Assessment: 65-year-old lady admitted after an elective left-sided mastectomy complicated by surgical site hematoma requiring evacuation Plan: Neuro: No acute issues. Cardiac: No acute issues. Underlying history of hypertension Pulmonary: No acute issues. Extubated uneventfully this a.m. Renal: No acute issues. Endo: No acute issues. underlying diabetes mellitus and hypothyroidism. GI: No acute issues. ID: No acute issues Heme/Onc: Hemoglobin level stabilized. Psych: No acute issues. Miscellaneous: No acute issues. Prophylaxis: Intermittent pneumatic compression Diet: regular Critical care time spent: 45 minutes (2) Ductal carcinoma in situ of left breast: Status: Acute (3) Hypothyroidism, unspecified: Status: Chronic Time Spent With Patient Time: Total time spent is greater than 50% in coordination of care (as documented) at patient's floor/unit and/or counseling patient: Total time spent with greater than 50% in coordination of care (as documented) at patient's floor/unit and/or counseling patient:: 0 Critical Care Time 45 minutes
--- NOTE | 2020-10-08 14:50 | PC.NURSE ---
extubated this am presently on 3l nc ecdb oob briefly took a few steps vss rested in long naps k-phos and magnesium replacements given
[2020-10-08] MEDS: 0.9 % Sodium Chloride Flush 3 ML SYRINGE IVFLUSH (15:41)
[2020-10-08 17:27] LABS: Glucose, Whole Blood 130 mg/dL (60-115)
[2020-10-08 21:06] LABS: Glucose, Whole Blood 199 mg/dL (60-115)
[2020-10-08] MEDS: Insulin Lispro 100 UNIT/ML 3 ML VIAL SUBCUT (22:00)
[2020-10-08] MEDS: Acetaminophen 325 MG TABLET 650 MG PO (22:57)
[2020-10-09] MEDS: 0.9 % Sodium Chloride Flush 3 ML SYRINGE IVFLUSH ×3 (00:48→17:20)
[2020-10-09 04:01] VITALS: BP 143/72; PULSE 99; RESP 19; TEMP 36.3; O2SAT 98
--- NOTE | 2020-10-09 07:07 | PC.NURSE ---
pATIENT HAD NUNEZ AND NO ORDER. [employer]ER NOTIFIED. NUNEZ REMOVED AT 0645 NO FURTHER BLEEDING SINCE PREVIOUS NURSE TO SURGICAL SITE. PATIENT COMPLAINS OF SORENESS BUT IS IN GOOD SPIRITS AND STATES SHE DOESNT NEED PAIN MEDICATION. NO FACIAL GRIMACE. CONVERSING AND PLEASANT.
[2020-10-09 07:27] VITALS: BP 140/81; PULSE 96; RESP 19; TEMP 36.6; O2SAT 99
[2020-10-09 07:42] LABS: Glucose, Whole Blood 131 mg/dL (60-115)
[2020-10-09 07:57] LABS: Basophils Absolute Auto 0.1 X10*3/uL (0.0-0.2); Basophils Percent Auto 0.6 % (0-2); Eosinophils Absolute Auto 0.2 X10*3/uL (0.0-0.4); Hematocrit 37.7 % (37-47); Hemoglobin 12.5 g/dl (12.0-16.0); Imm Gran Abs Auto 0.03 X10*3/uL (0.00-0.03); Imm Gran Pct Auto 0.3 % (0.0-0.4); Lymphocytes Absolute Auto 4.3 X10*3/uL (1.2-4.9); Lymphocytes Percent Auto 47.9 % (20-40); MANUAL DIFF FLAG SCAN; Mean Corpuscular HGB Conc 33.2 g/dl (31.0-35.0); Mean Corpuscular Hemoglobin 31.7 pg (27.0-33.0); Mean Corpuscular Volume 95.7 fL (80-98); Mean Platelet Volume 11.2 fL (9.4-12.3); Monocytes Absolute Auto 1.9 X10*3/uL (0.1-1.2); Monocytes Percent Auto 21.8 % (2-11); NRBC Pct Auto 0.9 /100WBC (0.0-0.2); Neutrophils Absolute Auto 2.4 X10*3/uL (2.0-8.3); Neutrophils Percent Auto 27.4 % (45-73); Platelet Count 195 X10*3/uL (160-400); Red Blood Count 3.94 X10*6/uL (4.20-5.50); Red Cell Distribution Width 15.3 % (11.0-16.0); SCAN SMEAR FLAG 1; White Blood Count 8.9 X10*3/uL (4.8-10.8)
[2020-10-09 08:36] LABS: SLIDE REVIEW VERIFIED
--- NOTE | 2020-10-09 10:19 | PM.PNGS ---
Subjective Subjective Patient reports: no new complaints and feels better <MILLICENT Sewell - Last Filed: 10/09/20 13:33> Interval history: She came to the floor following an overnight in the ICU. She states that she is feeling well and denies any new complaints. Only mild discomfort. <MILLICENT Sewell - Last Filed: 10/09/20 13:33> Physical Exam Vital Signs: Vital Signs: Last Vital Signs Temp 97.9 F 10/09/20 07:27 Pulse 96 10/09/20 07:27 Resp 19 10/09/20 07:27 BP 140/81 H 10/09/20 07:27 Pulse Ox 99 10/09/20 07:27 Body Mass Index 31.6 <MILLICENT Sewell - Last Filed: 10/09/20 13:33> Const: General: cooperative and no acute distress <MILLICENT Sewell - Last Filed: 10/09/20 13:33> Chest: Chest palpation & inspection: normal inspection of the chest and other (Drains with moderate serosangineous drainage.) <MILLICENT Sewell - Last Filed: 10/09/20 13:33> Resp: Effort & Inspection: normal respiratory effort <MILLICENT Sewell - Last Filed: 10/09/20 13:33> Cardio: Rate: regular rate <MILLICENT Sewell - Last Filed: 10/09/20 13:33> Rhythm: regular rhythm <MILLICENT Sewell - Last Filed: 10/09/20 13:33> GI: Inspection: Yes normal to inspection <MILLICENT Sewell - Last Filed: 10/09/20 13:33> Skin: General skin exam: no rashes or lesions noted <MILLICENT Sewell - Last Filed: 10/09/20 13:33> Extrem: General: Yes no calf tenderness <MILLICENT Sewell - Last Filed: 10/09/20 13:33> Progress Note: A&P Assessment and plan (1) Hematoma following procedure: Problem details: 65 yo female s/p drainage of hematoma following L-radical mastectomy for invasive ductal carcinoma of Left Breast. POD#2 <MILLICENT Sewell - Last Filed: 10/09/20 13:33> Status: Acute <MILLICENT Sewell Last Filed: 10/09/20 13:33> Assessment and Plan: She is doing well. Denies much discomfort. VSS. Continue ALEX drains pain mgmt Regular diet Encourage OOB and IS <MILLICENT Sewell - Last Filed: 10/09/20 13:33> Patient was evaluated and examined at the bedside with Mr. Liban Bowens PA-C. I confirm above findings and plan as documented. Patient appears comfortable, in good spirits. ALEX's working fine. Chest dressing intact. Continue postop care. <Perico Michaels MD - Last Filed: 10/09/20 13:37> Fall Risk Details Current Medications: Current Medications Generic Name Dose Route Start Last Admin Trade Name Freq PRN Reason Stop Dose Admin Acetaminophen 650 mg 10/07/20 16:35 10/08/20 22:57 Acetaminophen 325 Mg Tablet PO 650 mg Q6H PRN Administration Pain, Mild (Pain Scale 1-3) Al Hydroxide/Mg Hydroxide 30 ml 10/07/20 16:35 Magnesium Hydrox/Alum Hydrox 30 Ml Oral.Susp PO Q4H PRN Heartburn/Nausea Docusate Sodium 100 mg 10/07/20 16:35 Docusate Sodium 100 Mg Capsule PO DAILY PRN Constipation Insulin Human Lispro 0 unit 10/08/20 16:30 10/09/20 08:14 Insulin Lispro 100 Unit/Ml 3 Ml Vial SUBCUT Not Given QIDACHS [facility] Protocol Morphine Sulfate 2 mg 10/07/20 16:35 Morphine Sulfate 2 Mg/Ml Cartridge IVPUSH Q3H PRN Pain, Severe (Pain Scale 7-10) Ondansetron HCl 4 mg 10/07/20 16:35 Ondansetron Hcl 4 Mg/2 Ml Vial IVPUSH Q8H PRN Nausea and Vomiting Oxycodone HCl 5 mg 10/07/20 16:35 10/08/20 07:55 Oxycodone Hcl Immed Release 5 Mg Tablet PO 5 mg Q4H PRN Administration Pain, Moderate (Pain Scale 4-6 Pharmacy Consult 1 each 10/07/20 16:35 Consult Rx Perform Med Rec MISCELLANE ONCE PRN Consult order Sodium Chloride 3 ml 10/07/20 16:35 10/09/20 08:14 0.9 % Sodium Chloride Flush 3 Ml Syringe IVFLUSH 3 ml QSHIFT [facility] Administration Zolpidem Tartrate 5 mg 10/07/20 16:35 Zolpidem Tartrate 5 Mg Tablet PO BEDTIME PRN Insomnia <MILLICENT Sewell - Last Filed: 10/09/20 13:33> Time Spent With Patient Time: Total time spent is greater than 50% in coordination of care (as documented) at patient's floor/unit and/or counseling patient: <MILLICENT Sewell - Last Filed: 10/09/20 13:33> Time with patient: 15 - 24 minutes <Perico Michaels MD - Last Filed: 10/09/20 13:37> Progress Note: Quality VTE Deep Vein Thrombosis/Pulmonary Embolism Present on Admission: No <MILLICENT Sewell - Last Filed: 10/09/20 13:33> Procedures Abscess I/D Date of Service: 10/09/20 <Perico Michaels MD - Last Filed: 10/09/20 13:37>
[2020-10-09 11:35] VITALS: BP 134/76; PULSE 104; RESP 18; TEMP 36.6; O2SAT 95
[2020-10-09 12:37] LABS: Glucose, Whole Blood 218 mg/dL (60-115)
[2020-10-09] MEDS: Insulin Lispro 100 UNIT/ML 3 ML VIAL SUBCUT ×3 (13:31→21:27)
--- NOTE | 2020-10-09 13:55 | MHC.CM.PN ---
PATIENT LIVES WITH A ROOMMATE. SHE HAS DAILY VNA FOR MEDICATION MANAGEMENT AND MONITORING. [facility] [employer] [facility] SETS UP THESE SERVICES. HER BROTHER, RENETTA IS HER HCP, AND A COPY IS REQUESTED. ORIGINAL HCP WAS DONE AT [facility] IN 2000. BROTHER PROVIDES TRANSPORTATION WHERE NEEDED. CASE MANAGEMENT FOLLOWING FOR ANY DISCHARGE NEEDS. IMM 10/09 IN CHART.
[2020-10-09 15:44] VITALS: BP 153/77; PULSE 110; RESP 19; TEMP 37.4; O2SAT 95
[2020-10-09 16:52] LABS: Glucose, Whole Blood 184 mg/dL (60-115)
[2020-10-09 19:04] VITALS: BP 164/90; PULSE 100; RESP 19; TEMP 37; O2SAT 96
[2020-10-09 20:40] LABS: Glucose, Whole Blood 247 mg/dL (60-115)
[2020-10-10] VITALS (7 sets, daily range): BP systolic 105–155; BP diastolic 66–89; PULSE 97–112; RESP 16–20; TEMP 36.3–37.2; O2SAT 95–97
[2020-10-10] MEDS: 0.9 % Sodium Chloride Flush 3 ML SYRINGE IVFLUSH ×3 (00:57→17:01)
[2020-10-10 08:05] LABS: Glucose, Whole Blood 137 mg/dL (60-115)
--- NOTE | 2020-10-10 10:33 | MHC.CM.PN ---
PATIENT IS ASKING IF SHE CAN DISCHARGE HOME. PER CONVERSATION WITH SURGICAL PA, PATIENT IS NOT MEDICALLY READY FOR DISCHARGE. PATIENT UPDATED
[2020-10-10 12:18] LABS: Glucose, Whole Blood 213 mg/dL (60-115)
[2020-10-10] MEDS: Insulin Lispro 100 UNIT/ML 3 ML VIAL SUBCUT ×3 (12:47→20:47)
--- NOTE | 2020-10-10 12:57 | P.PNGS_ITS ---
Subjective Subjective Patient reports: no new complaints and feels better <MILLICENT Sewell - Last Filed: 10/10/20 13:04> Interval history: States she is feeling well and thinks that she is ready to go home. No new complaint. She is OOB in [place]. Tolerating a regular diet. <MILLICENT Sewell - Last Filed: 10/10/20 13:04> Physical Exam Vital Signs: Vital Signs: Last Vital Signs Temp 98.4 F 10/10/20 11:24 Pulse 106 H 10/10/20 11:24 Resp 18 10/10/20 11:24 BP 142/83 H 10/10/20 11:24 Pulse Ox 97 10/10/20 11:24 Body Mass Index 31.6 <MILLICENT Sewell - Last Filed: 10/10/20 13:04> Const: General: cooperative and no acute distress <MILLICENT Sewell - Last Filed: 10/10/20 13:04> Chest: Chest palpation & inspection: normal inspection of the chest, tenderness (appropraite post-op) and other (ALEX drains with ongoing moderate sangineous drainage. Incision c/d/i) <MILLICENT Sewell - Last Filed: 10/10/20 13:04> Resp: Effort & Inspection: normal respiratory effort <MILLICENT Sewell - Last Filed: 10/10/20 13:04> GI: Palpation (GI): Soft to palpation <MILLICENT Sewell - Last Filed: 10/10/20 13:04> Skin: General skin exam: no rashes or lesions noted <MILLICENT Sewell - Last Filed: 10/10/20 13:04> Extrem: General: Yes no calf tenderness <MILLICENT Sewell - Last Filed: 10/10/20 13:04> Progress Note: A&P Assessment and plan (1) Hematoma following procedure: Problem details: 65 yo female s/p drainage of hematoma following L-radical mastectomy for invasive ductal carcinoma of Left Breast. POD#3 <MILLICENT Sewell - Last Filed: 10/10/20 13:04> Status: Acute <MILLICENT Sewell - Last Filed: 10/10/20 13:04> Assessment and Plan: Doing very well. Will D/C IV pain meds Will remove triple lumen Dressing changed She will likely be discharged tomorrow following evaluation by regular surgical team. <MILLICENT Sewell - Last Filed: 10/10/20 13:04> . General Surgery Attending - Cleopatra Michaels M.D. Patient was evaluated and examined at the bedside with Mr. Liban Bowens PA-C. I confirm above findings and plan as documented. Patient is comfortable. Wound on chest CDI. Drainage tubes still draining actively. The IJ central line can be discontinued - put order in. <Perico Michaels MD - Last Filed: 10/10/20 13:17> Fall Risk Details Current Medications: Current Medications Generic Name Dose Route Start Last Admin Trade Name Freq PRN Reason Stop Dose Admin Acetaminophen 650 mg 10/07/20 16:35 10/08/20 22:57 Acetaminophen 325 Mg Tablet PO 650 mg Q6H PRN Administration Pain, Mild (Pain Scale 1-3) Al Hydroxide/Mg Hydroxide 30 ml 10/07/20 16:35 Magnesium Hydrox/Alum Hydrox 30 Ml Oral.Susp PO Q4H PRN Heartburn/Nausea Docusate Sodium 100 mg 10/07/20 16:35 Docusate Sodium 100 Mg Capsule PO DAILY PRN Constipation Insulin Human Lispro 0 unit 10/08/20 16:30 10/10/20 12:47 Insulin Lispro 100 Unit/Ml 3 Ml Vial SUBCUT 4 unit QIDACHS [facility] Administration Protocol Morphine Sulfate 2 mg 10/07/20 16:35 Morphine Sulfate 2 Mg/Ml Cartridge IVPUSH Q3H PRN Pain, Severe (Pain Scale 7-10) Ondansetron HCl 4 mg 10/07/20 16:35 Ondansetron Hcl 4 Mg/2 Ml Vial IVPUSH Q8H PRN Nausea and Vomiting Oxycodone HCl 5 mg 10/07/20 16:35 10/08/20 07:55 Oxycodone Hcl Immed Release 5 Mg Tablet PO 5 mg Q4H PRN Administration Pain, Moderate (Pain Scale 4-6 Pharmacy Consult 1 each 10/07/20 16:35 Consult Rx Perform Med Rec MISCELLANE ONCE PRN Consult order Sodium Chloride 3 ml 10/07/20 16:35 10/10/20 07:30 0.9 % Sodium Chloride Flush 3 Ml Syringe IVFLUSH 3 ml QSHIFT [facility] Administration Zolpidem Tartrate 5 mg 10/07/20 16:35 Zolpidem Tartrate 5 Mg Tablet PO BEDTIME PRN Insomnia <MILLICENT Sewell - Last Filed: 10/10/20 13:04> Time Spent With Patient Time: Total time spent is greater than 50% in coordination of care (as documented) at patient's floor/unit and/or counseling patient: <MILLICENT Sewell - Last Filed: 10/10/20 13:04> Time with patient: 15 - 24 minutes <Perico Michaels MD - Last Filed: 10/10/20 13:17> Progress Note: Quality VTE Deep Vein Thrombosis/Pulmonary Embolism Present on Admission: No <MILLICENT Sewell - Last Filed: 10/10/20 13:04> Procedures Abscess I/D Date of Service: 10/10/20 <Perico Michaels MD - Last Filed: 10/10/20 13:17>
[2020-10-10 16:58] LABS: Glucose, Whole Blood 161 mg/dL (60-115)
--- NOTE | 2020-10-10 18:20 | PC.NURSE ---
TRIPLE LUMEN CATHETER REMOVED AT 181. COVERED WITH XEROFORM, GAUZE AND TEGADERM. PRESSURE HELD FOR FIVE MINUTES. BLUE TIP WAS INTACT. NO REDNESS, NO DRAINAGE AND NO SIGNS OR SYMPTOMS OF INFECTION.
[2020-10-10 20:49] LABS: Glucose, Whole Blood 246 mg/dL (60-115)
[2020-10-11] MEDS: 0.9 % Sodium Chloride Flush 3 ML SYRINGE IVFLUSH ×2 (00:07→10:10)
[2020-10-11 04:00] VITALS: BP 139/75; PULSE 78; RESP 19; TEMP 36.7; O2SAT 98
[2020-10-11 06:48] VITALS: BP 135/87; PULSE 99; RESP 18; TEMP 36.7; O2SAT 97
[2020-10-11 07:59] LABS: Glucose, Whole Blood 140 mg/dL (60-115)
[2020-10-11 10:52] VITALS: BP 130/81; PULSE 94; RESP 18; TEMP 36.6; O2SAT 98
--- NOTE | 2020-10-11 11:59 | P.F2F_ITS ---
Service Date Service Date: 10/11/20 Encounter Date of encounter: 10/11/20 Encounter: Patient was evaluated for discharged today and found to be ready for discharge to home. She has two ALEX drains which will require emptying daily. Reasons for Services Signs and symptoms assessed: Breast wounds checked for hematoma, drainage output from tubes Reason for retirement: wound care, postoperative assessment and/or care and diabetic teaching MD Overseeing Care: Prashant Hsu Homebound: Leaving the home is medically contraindicated at this time without the asist of a device and/or another person due th the listed conditions above and below. Reason homebound: weakness related to hospital stay and unable to drive Certification: Based on the above findings, I certify that this patient is con fined to the home and needs intermittent retirement care, physical therapy and/or speech therapy, or continues to need occupational therapy. The patient is under my care, and I have initiated the establishment of the plan of care. The patient will be followed by a physician who will periodically review the plan of care.
[2020-10-11 12:01] LABS: Glucose, Whole Blood 225 mg/dL (60-115)
--- NOTE | 2020-10-11 12:01 | PM.DS ---
DS: Providers Provider Date of admission: 10/07/20 07:39 Date of discharge: 10/11/20 Primary care physician: Nahum Fernandez MD Admitting clinician: Prashant Hsu Attending physician on admission: Prashant Hsu Consults: Tito Richards MD intensive care Attending physician on discharge: Prashant Hsu DS: Diagnosis Discharge Diagnosis (1) Hematoma following procedure: Status: Acute Problem details: 65 yo female s/p drainage of hematoma following L-modified radical mastectomy for invasive ductal carcinoma of Left Breast. (2) Diabetes type 2, uncontrolled: Status: Acute (3) Invasive ductal carcinoma of left breast: Status: Acute (4) Ductal carcinoma in situ of left breast: Status: Acute DS: Medications Discharge Medications Home Medications: Home Medications Medication Instructions Recorded Confirmed alcohol swabs pad TOPICAL 08/21/20 09/02/20 allopurinol 300 mg tablet 300 mg PO DAILY 08/21/20 10/07/20 blood sugar diagnostic #10 ea 08/21/20 09/02/20 clonidine HCl 0.3 mg tablet 0.3 mg PO BEDTIME 08/21/20 10/07/20 furosemide 20 mg tablet 20 mg PO DAILY 08/21/20 10/07/20 lancets 28 gauge #100 ea 08/21/20 09/02/20 mycophenolate mofetil 250 mg 250 mg PO BID 08/21/20 10/07/20 capsule omega-3 fatty acids 1,000 mg 1,000 mg PO DAILY 08/21/20 10/07/20 capsule pediatric multivitamin 1 tab PO DAILY 08/21/20 10/07/20 tacrolimus 0.5 mg capsule 0.5 mg PO BID 08/21/20 10/07/20 aspirin 81 mg tablet,delayed 81 mg PO DAILY 09/02/20 10/07/20 release Tresiba FlexTouch U-100 20 unit SUBCUT QAM 10/04/20 10/07/20 atorvastatin 1 tab PO DAILY 10/07/20 10/07/20 Previous Rx's Medication Instructions Recorded calcium carbonate 500 mg calcium 1,000 mg PO DAILY 90 Days #180 tab 09/02/20 (1,250 mg) chewable tablet cholecalciferol (vitamin D3) 1,250 1,250 mcg PO Q2W 90 Days #7 cap 09/02/20 mcg (50,000 unit) capsule diltiazem HCl 180 mg 180 mg PO DAILY 90 Days #90 cap 09/02/20 capsule,extended release 24 hr dulaglutide 1.5 mg/0.5 mL 1.5 mg SUBCUT QWEEK 90 Days #6.5 ml 09/02/20 subcutaneous pen injector levothyroxine 100 mcg tablet 100 mcg PO DAILY 90 Days #90 tab 09/02/20 lisinopril 5 mg tablet 5 mg PO DAILY 90 Days #90 tab 09/02/20 metformin 500 mg tablet 500 mg PO BID #90 tab 09/02/20 pen needle, diabetic 31 gauge x #100 ea 09/02/20 3/16 repaglinide 0.5 mg tablet 0.5 mg PO TID 90 Days #270 tab 09/02/20 oxycodone 5 mg PO Q6H PRN #16 tab 09/16/20 DS: Summary Hospital Course Hospital Course: Seema David Is a 65-year-old female patient presenting with a recently diagnosed left breast invasive ductal carcinoma with ductal carcinoma in situ found to have a large tumor with invasion just below the nipple and in the superior margin presenting as a short-stay admit for a modified radical mastectomy. She underwent the procedure as an elective procedure on 10/07/2020. She initially tolerated the procedure well however while in the recovery room began to have swelling in the incision with increased discharge from the Warren-Hamilton drain. The patient was noted to become hypotensive although without tachycardia. The decision was made to take her back to the operating room for reexploration of her left modified radical mastectomy incision. Operative findings revealed a large hematoma with a bleeding vessel located over the pectoralis major muscle. This was ligated and controlled the bleeding obtained. Patient was observed for approximately 1/2 hour in the operating room looking for any further bleeding. Two Warren-Hamilton drains were left in place . The patient received 3 units of packed RBCs in the operating room. She was kept intubated overnight and placed in the intensive care unit for further monitoring. Overnight she had some mild sanguinous discharge from the Warren-Hamilton drain but no hematoma reaccumulation. She remained hemodynamically stable overnight was subsequently transferred to [facility]. The patient currently has no pain and her hemoglobin has remained stable over the weekend. Warren-Hamilton drain is draining serosanguineous discharge and will be left in place for approximately 1-2 weeks. The patient is being discharged to her home with [facility] care for medication care and care of the Warren-Hamilton drain. The drain will need to be emptied daily and the output recorded. She should return to the office in approximately 1 week for wound examination and possible drain removal. She has rené in place and should not shower until the rené are removed. She may perform light activity but should avoid any heavy lifting especially with the left arm. Status at Discharge Functional status at discharge: independent ambulation Overall status at discharge: patient is not back to baseline Time Spent with Patient Time attestation: Total time spent providing and/or coordinating discharge services: Discharge coordination time: Less than 30 minutes Quality: VTE Deep Vein Thrombosis/Pulmonary Embolism Present on Admission: No Physical Exam Vital Signs: Vital Signs: Last Vital Signs Temp 97.9 F 10/11/20 10:52 Pulse 94 10/11/20 10:52 Resp 18 10/11/20 10:52 BP 130/81 10/11/20 10:52 Pulse Ox 98 10/11/20 10:52 Body Mass Index 31.6 Const: Other: Well-nourished, well-developed, in no acute distress Chest: Other: chest wounds are clean and intact. No evidence of hematoma recurrence. Warren-Hamilton drain sites are intact. Resp: Other: Breathing comfortably on room air, no respiratory distress GI: Other: soft, nondistended, nontender, normal bowel sounds Skin: Other: warm and dry, no rash Extrem: Other: no edema noted in the upper extremities, full range of motion DS: Data Data Completed and Pending Pending studies at discharge: Pending at discharge 10/07/20 11:20 Surgical [PTH] Routine Labs on day of discharge: 10/07/20 XR chest 1V Stat 10/07/20 07:37 Acetaminophen [Ofirmev] 1,000 mg in 100 ml IV PREOP ceFAZolin Sodium/Dextrose,Iso [Ancef] 2 gm in 50 ml IV PREOP 10/07/20 07:40 COVID-19 ID NOW (Vora) Stat 10/07/20 07:45 Lactated Ringers [Lr] 1,000 ml IVCONT 100 mls/hr 10/07/20 08:05 Acetaminophen [Ofirmev] 1,000 mg in 100 ml IV As directed ceFAZolin Sodium/Dextrose,Iso [Ancef] 2 gm in 50 ml .ROUTE As directed 10/07/20 08:56 Bupivacaine MPF 0.75 % w/EPI [Sensorcaine MPF 0.75%/EPI 1:200,000] 30 ml .ROUTE .[facility]-MED ONE 10/07/20 09:03 fentaNYL citrate/PF [Sublimaze] 50 mcg .ROUTE .[facility] 10/07/20 09:04 Midazolam HCl/PF [Versed] 2 mg .ROUTE .[facility] 10/07/20 09:06 propofoL [Diprivan] 200 mg IVPUSH .[facility] 10/07/20 09:19 Glucose, Whole Blood Routine 10/07/20 09:59 fentaNYL citrate/PF [Sublimaze] 50 mcg .ROUTE .[facility] 10/07/20 10:08 fentaNYL citrate/PF [Sublimaze] 50 mcg .ROUTE .[facility] 10/07/20 10:11 Ketamine HCl/NS 50 mg IVPUSH .[facility] 10/07/20 10:27 HYDROmorphone HCl [Dilaudid] 2 mg .ROUTE .[facility] 10/07/20 10:43 ePHEDrine sulfate 50 mg .ROUTE .[facility] 10/07/20 11:59 ondansetron HCL [Zofran] 4 mg .ROUTE .[facility] 10/07/20 12:08 Transfer Order Routine 10/07/20 12:10 fentaNYL citrate/PF [Sublimaze] 50 mcg .ROUTE .[facility] 10/07/20 15:31 Phenylephrine HCL 1,000 mcg IVPUSH .[facility] ONE ePHEDrine sulfate 50 mg .ROUTE .[facility] ONE propofoL [Diprivan] 200 mg IVPUSH .[facility] 10/07/20 15:36 Ketamine HCl/NS 50 mg IVPUSH .[facility] 10/07/20 15:39 Midazolam HCl/PF [Versed] 2 mg .ROUTE .[facility] 10/07/20 15:43 Phenylephrine HCL 10 mg .ROUTE .K-[facility] 10/07/20 15:46 Vasopressin [Vasostrict] 20 unit .ROUTE .[facility] 10/07/20 16:02 Midazolam HCl/PF [Versed] 2 mg .ROUTE .[facility] 10/07/20 16:26 Phenylephrine HCL 1,000 mcg IVPUSH .[facility] 10/07/20 16:35 Dextrose 5 % and Lactated Ring [D5lr] 1,000 ml IVCONT 125 mls/hr Morphine Sulfate 2 mg IVPUSH Q3H PRN 10/07/20 16:40 Transfer Order Routine 10/07/20 17:19 propofoL [Diprivan] 1,000 mg in 100 ml IVCONT As directed 10/07/20 17:20 Albumin Human 25 % [Kedbumin 25 %] 100 ml IV As directed 10/07/20 17:25 Albumin Human 25 % [Kedbumin 25 %] 100 ml IV ONCE 10/07/20 17:29 Glucose, Whole Blood Routine 10/07/20 17:30 0.9 % Sodium Chloride [Ns] 250 ml Phenylephrine HCL 20 mg IVCONT Per Protocol mcg/kg/min propofoL [Diprivan] 1,000 mg in 100 ml IVCONT Per Protocol mcg/kg/min 10/07/20 17:54 Basic Metabolic Panel Stat Complete Blood Count Auto Diff Stat Prothrombin Time INR Stat Venous Blood Gas Stat 10/07/20 18:23 Antibody Identification Stat Direct Daniel (ROMARIO) Stat Type and Screen Stat 10/07/20 Dinner NPO Diet 10/08/20 05:30 Basic Metabolic Panel Fasting DAILY@0600 Complete Blood Count Auto Diff DAILY@0600 Comprehensive Met. Panel DAILY@0600 Magnesium DAILY Phosphorus DAILY Venous Blood Gas DAILY 10/08/20 08:04 Magnesium Sulfate/H2O 2 gm in 50 ml IV ONCE Potassium Phosphate [KPhos] 30 mmol 0.9 % Sodium Chloride [Ns] 500 ml IV ONCE 10/08/20 11:51 Transfer Order Routine 10/08/20 17:18 Glucose, Whole Blood Routine 10/08/20 21:03 Glucose, Whole Blood Routine 10/09/20 07:13 Complete Blood Count Auto Diff DAILY@0600 SLIDE REVIEW Routine 10/09/20 07:26 Glucose, Whole Blood Routine 10/09/20 11:34 Glucose, Whole Blood Routine 10/09/20 16:24 Glucose, Whole Blood Routine 10/09/20 20:36 Glucose, Whole Blood Routine 10/10/20 07:12 Glucose, Whole Blood Routine 10/10/20 11:22 Glucose, Whole Blood Routine 10/10/20 16:07 Glucose, Whole Blood Routine 10/10/20 20:44 Glucose, Whole Blood Routine 10/11/20 06:56 Glucose, Whole Blood Routine 10/11/20 10:58 Glucose, Whole Blood Routine Laboratory Last Values WBC 8.9 X10*3/uL (4.8-10.8) 10/09/20 07:13 RBC 3.94 X10*6/uL (4.20-5.50) L 10/09/20 07:13 Hgb 12.5 g/dl (12.0-16.0) 10/09/20 07:13 Hct 37.7 % (37-47) 10/09/20 07:13 MCV 95.7 fL (80-98) 10/09/20 07:13 MCH 31.7 pg (27.0-33.0) 10/09/20 07:13 MCHC 33.2 g/dl (31.0-35.0) 10/09/20 07:13 RDW 15.3 % (11.0-16.0) 10/09/20 07:13 Plt Count 195 X10*3/uL (160-400) 10/09/20 07:13 MPV 11.2 fL (9.4-12.3) 10/09/20 07:13 Immature Gran % (Auto) 0.3 % (0.0-0.4) 10/09/20 07:13 Neut % (Auto) 27.4 % (45-73) L 10/09/20 07:13 Lymph % (Auto) 47.9 % (20-40) H 10/09/20 07:13 [place] % (Auto) 21.8 % (2-11) H 10/09/20 07:13 Eos % (Auto) 2.0 % (0-4) 10/09/20 07:13 Baso % (Auto) 0.6 % (0-2) 10/09/20 07:13 Lymph # (Auto) 4.3 X10*3/uL (1.2-4.9) 10/09/20 07:13 [place] # (Auto) 1.9 X10*3/uL (0.1-1.2) H 10/09/20 07:13 Eos # (Auto) 0.2 X10*3/uL (0.0-0.4) 10/09/20 07:13 Baso # (Auto) 0.1 X10*3/uL (0.0-0.2) 10/09/20 07:13 Abs Immat Gran (auto) 0.03 X10*3/uL (0.00-0.03) 10/09/20 07:13 Absolute Neuts (auto) 2.4 X10*3/uL (2.0-8.3) 10/09/20 07:13 Absolute Nucleated RBC 0.080 X10*3/uL (0.0-0.012) H 10/09/20 07:13 Nucleated RBC % (auto) 0.9 /100WBC (0.0-0.2) H 10/09/20 07:13 Smear Tech's Comments VERIFIED 10/09/20 07:13 PT 14.0 SEC (10.8-13.0) H 10/07/20 17:54 INR 1.2 (0.9-1.1) H 10/07/20 17:54 VBG pH 7.46 (7.32-7.43) H 10/08/20 05:30 VBG pCO2 36 mmhg 10/08/20 05:30 VBG Oxygen Liters/Min Not Reportable 10/08/20 05:30 VBG pO2 38 mmhg 10/08/20 05:30 VBG HCO3 25 mmol/L 10/08/20 05:30 VBG O2 Saturation 79.9 % 10/08/20 05:30 VBG Base Excess 1.2 mmol/L 10/08/20 05:30 Sodium 136 mmol/L (135-145) 10/08/20 05:30 Sodium 137 mmol/L (135-145) 10/08/20 05:30 Potassium 4.4 mmol/l (3.3-5.1) 10/08/20 05:30 Potassium 4.4 mmol/l (3.3-5.1) 10/08/20 05:30 Chloride 105 mmol/L (96-108) 10/08/20 05:30 Chloride 105 mmol/L (96-108) 10/08/20 05:30 Carbon Dioxide 23 mmol/L (22-29) 10/08/20 05:30 Carbon Dioxide 24 mmol/L (22-29) 10/08/20 05:30 Anion Gap 12 (12-20) 10/08/20 05:30 Anion Gap 12 (12-20) 10/08/20 05:30 BUN 21 mg/dL (9-16) H 10/08/20 05:30 BUN 21 mg/dL (9-16) H 10/08/20 05:30 Creatinine 0.85 mg/dL (0.5-1.4) 10/08/20 05:30 Creatinine 0.85 mg/dL (0.5-1.4) 10/08/20 05:30 Estim Creat Clear Calc 60.6 10/08/20 05:30 Estim Creat Clear Calc 60.6 10/08/20 05:30 Estimated GFR > 60 10/08/20 05:30 Estimated GFR > 60 10/08/20 05:30 POC Glucose 225 mg/dL (60-115) H 10/11/20 10:58 Random Glucose 289 mg/dL (60-115) H 10/08/20 05:30 Fasting Glucose 285 mg/dL (60-99) H 10/08/20 05:30 Calcium 7.8 mg/dL (8.4-10.2) L 10/08/20 05:30 Calcium 7.9 mg/dL (8.4-10.2) L 10/08/20 05:30 Phosphorus 2.3 mg/dL (2.7-4.5) L 10/08/20 05:30 Magnesium 1.5 mg/dL (1.6-2.6) L 10/08/20 05:30 Total Bilirubin 0.9 mg/dL (0.0-1.0) 10/08/20 05:30 AST 155 U/L (5-31) H 10/08/20 05:30 ALT 170 U/L (0-31) H 10/08/20 05:30 Alkaline Phosphatase 126 U/L (39-117) H 10/08/20 05:30 Total Protein 5.1 g/dL (6.5-8.0) L 10/08/20 05:30 Albumin 3.1 g/dL (3.5-5.0) L 10/08/20 05:30 COVID-19 (IDRIS) Negative (Negative) 10/07/20 07:40 COVID-19 Clin Com See Note 10/07/20 07:40 Blood Type AB Negative 10/07/20 18:23 Antibody Screen NEGATIVE 10/07/20 18:23 Antibody Identification Negative 10/07/20 18:23 ROMARIO, Polyspecific NEGATIVE 10/07/20 18:23 Crossmatch See Detail 10/07/20 18:23 Discharge Plan Discharge Anticipated Discharge Date/Time: 10/11/20 13:09 Patient Disposition: Home Health Service Referrals: [facility] [Outside] Nahum Fernandez MD [Primary Care Provider] - Prashant Hsu MD [Physician] - Discharge Medications: Continued Tresiba FlexTouch U-100 100 unit/mL (3 mL) insulin pen 20 unit subcut QAM RF: 0 oxycodone 5 mg tablet 5 mg PO Q6H PRN (Reason: pain) Qty: 16 RF: 0 atorvastatin 20 mg tablet 1 tab PO DAILY RF: 0 aspirin [Adult Aspirin Regimen] 81 mg tablet,delayed release (DR/EC) 81 mg PO DAILY RF: 0 dulaglutide 1.5 mg/0.5 mL pen injector 1.5 mg subcut QWEEK 90 Days Qty: 6.5 RF: 3 metformin 500 mg tablet 500 mg PO BID Qty: 90 RF: 3 repaglinide 0.5 mg tablet 0.5 mg PO TID 90 Days Qty: 270 RF: 3 (DME) pen needle, diabetic 31 gauge x 3/16 needle See Rx Instructions ea subcut DAILY Qty: 100 RF: 3 levothyroxine 100 mcg tablet 100 mcg PO DAILY 90 Days Qty: 90 RF: 3 diltiazem HCl 180 mg capsule,extended release 24hr 180 mg PO DAILY 90 Days Qty: 90 RF: 3 lisinopril 5 mg tablet 5 mg PO DAILY 90 Days Qty: 90 RF: 0 cholecalciferol (vitamin D3) 1,250 mcg (50,000 unit) capsule 1,250 mcg PO Q2W 90 Days Qty: 7 RF: 3 calcium carbonate 500 mg calcium (1,250 mg) tablet,chewable 1,000 mg PO DAILY 90 Days Qty: 180 RF: 3 tacrolimus 0.5 mg capsule 0.5 mg PO BID RF: 0 mycophenolate mofetil 250 mg capsule 250 mg PO BID RF: 0 allopurinol 300 mg tablet 300 mg PO DAILY RF: 0 (DME) blood sugar diagnostic Strip See Rx Instructions ea Not Applicable TID Qty: 10 RF: 0 alcohol swabs Pads, Medicated topical RF: 0 furosemide 20 mg tablet 20 mg PO DAILY RF: 0 clonidine HCl 0.3 mg tablet 0.3 mg PO BEDTIME RF: 0 (DME) lancets 28 gauge misc See Rx Instructions ea topical TID Qty: 100 RF: 0 omega-3 fatty acids [Fish Oil Concentrate] 1,000 mg capsule 1,000 mg PO DAILY RF: 0 Flintstones Multivitamin Tablet,Chewable 1 tab PO DAILY RF: 0 Discharge Orders: Discharge Order (Routine); Ordered 10/11/20 Ordered By: Prashant Hsu Diet: diabetic diet Activity on Discharge: No heavy lifting Patient Instructions: Mastectomy (DC) Visit Report Forms: Patient Portal Discharge page Care Plan Goals: Return to normal activity and function Health Concerns: left breast invasive ductal carcinoma Plan of Treatment: s/p left modified radical mastectomy Patient with ALEX drain x 2 which require emptying daily, with records kept of the drainage output. Follow up in one week for a wound check, staple removal.
[2020-10-11] MEDS: Insulin Lispro 100 UNIT/ML 3 ML VIAL SUBCUT (12:11)
--- NOTE | 2020-10-11 12:12 | MHC.CM.PN ---
Pt being discharged today. CM spoke to pts sister in law, Kylie ([phone]) who reports [facility] Kylie informed the pt would be ready to DC later this afternoon. Kylie or her will provide transportation Referral sent to [facility] ([facility]) along with pt notes. They were informed of pts DC and need to resume services. CM will attach DC summary once available. pt will DC home today with resumption of daily visits by [facility] and mental health services provided by [facility]. Family will provide transportation.
--- NOTE | 2020-10-11 14:12 | P.PNGS_ITS ---
Subjective Subjective Interval history: Seema feels much improved today and denies any pain in the chest or in her arm. She reports ambulating well and denies nausea or vomiting. Physical Exam Vital Signs: Vital Signs: Last Vital Signs Temp 97.9 F 10/11/20 10:52 Pulse 94 10/11/20 10:52 Resp 18 10/11/20 10:52 BP 130/81 10/11/20 10:52 Pulse Ox 98 10/11/20 10:52 Body Mass Index 31.6 Const: Other: Well-nourished, well-developed, in no acute distress Chest: Other: left chest wounds are clean and intact with no evidence of recurrent hematoma. Warren-Hamilton drains are intact and draining serosanguineous discharge. GI: Other: Soft, nontender, nondistended Skin: Other: warm and dry, no rash Progress Note: A&P Assessment and plan (1) Hematoma following procedure: Problem details: 65 yo female s/p drainage of hematoma following L-modified radical mastectomy for invasive ductal carcinoma of Left Breast. Status: Acute (2) Ductal carcinoma in situ of left breast: Status: Acute (3) Invasive ductal carcinoma of left breast: Status: Acute Assessment and Plan: Seema is now status post left modified radical mastectomy and 2nd procedure for evacuation of hematoma of the left breast. She remains hemodynamically stable with stable hemoglobin and hematocrit level. There is no evidence of rebleeding in the chest wall. Warren-Hamilton drain will remain intact and be removed as an outpatient. Patient feels ready for discharge and she is ready f or discharge from my standpoint as well. she should follow up in the office in approximately 1 week for wound check and possible staple removal. She should call sooner for any concerns. Visiting nurses will be arranged for drain management. Fall Risk Details Current Medications: Current Medications Generic Name Dose Route Start Last Admin Trade Name Freq PRN Reason Stop Dose Admin Acetaminophen 650 mg 10/07/20 16:35 10/08/20 22:57 Acetaminophen 325 Mg Tablet PO 650 mg Q6H PRN Administration Pain, Mild (Pain Scale 1-3) Al Hydroxide/Mg Hydroxide 30 ml 10/07/20 16:35 Magnesium Hydrox/Alum Hydrox 30 Ml Oral.Susp PO Q4H PRN Heartburn/Nausea Docusate Sodium 100 mg 10/07/20 16:35 Docusate Sodium 100 Mg Capsule PO DAILY PRN Constipation Insulin Human Lispro 0 unit 10/08/20 16:30 10/11/20 12:11 Insulin Lispro 100 Unit/Ml 3 Ml Vial SUBCUT 4 unit QIDACHS [facility] Administration Protocol Ondansetron HCl 4 mg 10/07/20 16:35 Ondansetron Hcl 4 Mg/2 Ml Vial IVPUSH Q8H PRN Nausea and Vomiting Oxycodone HCl 5 mg 10/07/20 16:35 10/08/20 07:55 Oxycodone Hcl Immed Release 5 Mg Tablet PO 5 mg Q4H PRN Administration Pain, Moderate (Pain Scale 4-6 Pharmacy Consult 1 each 10/07/20 16:35 Consult Rx Perform Med Rec MISCELLANE ONCE PRN Consult order Sodium Chloride 3 ml 10/07/20 16:35 10/11/20 10:10 0.9 % Sodium Chloride Flush 3 Ml Syringe IVFLUSH 3 ml QSHIFT [facility] Administration Zolpidem Tartrate 5 mg 10/07/20 16:35 Zolpidem Tartrate 5 Mg Tablet PO BEDTIME PRN Insomnia Time Spent With Patient Time: Total time spent is greater than 50% in coordination of care (as documented) at patient's floor/unit and/or counseling patient: Time with patient: 15 - 24 minutes Progress Note: Quality VTE Deep Vein Thrombosis/Pulmonary Embolism Present on Admission: No Procedures Abscess I/D Date of Service: 10/11/20
== END 2020-10-11 15:05 | disposition home health service (06) | DRG 580 ==
LOC: HO.SSSA 08:02 → HO.S3 13:38 → HO.ICU 16:55 → HO.S3 10-08 15:50
PROVIDERS: Absent Provider Internal Medicine Pulmonary Disease; Admitting Provider Surgery; PCP Internal Medicine; Visit Provider Surgery
PROC: 0HTU0ZZ Resection of Left Breast, Open Approach (ICD-10-PCS; CPT 19307; principal; 2020-10-07 09:00)
DX: C50.912 Malignant neoplasm of unspecified site of left female breast (principal); L76.32 Postprocedural hematoma of skin and subcutaneous tissue following other procedure; Z94.4 Liver transplant status; E03.9 Hypothyroidism, unspecified; E78.5 Hyperlipidemia, unspecified; E66.9 Obesity, unspecified; I10 Essential (primary) hypertension; R62.59 Other lack of expected normal physiological development in childhood; E11.9 Type 2 diabetes mellitus without complications; Z68.31 Body mass index [BMI] 31.0-31.9, adult; Z20.828 Contact with and (suspected) exposure to other viral communicable diseases; Z79.82 Long term (current) use of aspirin; Z79.84 Long term (current) use of oral hypoglycemic drugs; Z79.890 Hormone replacement therapy; Z79.899 Other long term (current) drug therapy
CPT/HCPCS: 36415; 71045; 80048; 80053; 82803; 82947; 83735; 84100; 85025; 85610; 86850; 86870; 86880; 86900; 86901; 86920; 86922; 87635; 88309; 94002; 94003; 99024; 99231; 99232; J0131; J0690; J1170; J2250; J2370; J2405; J3010; J3475; P9016; P9047

== ENCOUNTER → 2020-10-15 10:03 | Outpatient (BNVA) | payer MEDICARE, MEDICAID, SELFPAY | PROVIDERS: PCP Internal Medicine; Referring Provider Internal Medicine; Visit Provider Surgery | DX: Z48.3 Aftercare following surgery for neoplasm (principal); Z48.02 Encounter for removal of sutures; Z48.01 Encounter for change or removal of surgical wound dressing; C50.912 Malignant neoplasm of unspecified site of left female breast | CPT/HCPCS: 99212 ==

== ENCOUNTER → 2020-11-10 13:49 | Outpatient (BNVA) | payer MEDICARE, MEDICAID, SELFPAY | PROVIDERS: PCP Internal Medicine; Visit Provider Surgery | DX: C50.912 Malignant neoplasm of unspecified site of left female breast (principal) | CPT/HCPCS: 99212 ==

== ENCOUNTER 2020-11-22 11:44 | Day surgery (SDC) | payer MEDICARE, MEDICAID, SELFPAY ==
--- NOTE | 2020-11-22 | IR_ITS ---
PROCEDURE: ULTRASOUND AND FLUOROSCOPY INSERTION OF RIGHT PORT-A-CATH CLINICAL INFORMATION: Left breast cancer. Needs chemotherapy. COMPARISON: None TECHNIQUE: Following explaining ultrasound and fluoroscopy-guided placement of a right tunneled port catheter through right jugular vein procedure, benefits and risks, a written consent was obtained. Patient was placed supine on fluoroscopy table, and preliminary ultrasound imaging was obtained through the right neck. An optimal site was selected and marked on the skin. All elements of maximal sterile barrier technique followed including use of cap, mask, sterile gown, sterile gloves, a sterile full body drape, and hand hygiene. Also followed skin preparation with 2% chlorhexidine for cutaneous antisepsis, and sterile ultrasound preparation with sterile gel and probe cover when applicable. 1% lidocaine was injected at puncture site. Under sterile ultrasound guidance, a single wall needle was advanced and right jugular vein lower in the neck was punctured. After obtaining venous return, a thin guidewire was advanced over the needle under fluoroscopy into the SVC and needle withdrawn. A 3-Bhutanese dilator with wire was left in place. Approximately 1 gauze length area was cleaned from the right neck puncture. 1% lidocaine was injected. A small skin incision was performed. The subcutaneous soft tissues are dissected and a cavity was created. A small chamber was inserted in outflow tract. 1% lidocaine was then injected subcutaneously from chest wall pocket to the neck incision. A blind tunneler attached to a catheter was inserted subcutaneously from the chest wall incision all the way into the right neck lesion and the tunneler was pulled. The tunneler was sized approximately 22 cm. The outside part of the catheter was connected to the port. The port was then anchored to the subcutaneous soft tissues with 3-0 nylon sutures on the right and left of the port. The existent guidewire was removed and a 0.35 J-wire was inserted under fluoroscopy and placed in IVC. The tract was dilated up to a 7-Bhutanese with dilators. A 7-Bhutanese dilator sheath was then inserted over the guidewire. The guidewire and the dilator was removed and the peel-away sheath was left in place. The size catheter was then inserted through a peel-away sheath and held in place as peel-away sheath was removed under fluoroscopy. The catheter tip now lies in the distal SVC. A single image was obtained for documentation. 3-0 absorbable sutures were placed along the right chest wall lesion. A single absorbable suture was placed along the right neck incision. Subsequently 3-0 nylon absorbable sutures were placed along the skin at the chest incision site. Steri-Strips were applied on the chest wall lesion and the right neck lesion with simple dressing placed post-procedure. The patient tolerated the procedure extremely well. Anesthesia was utilized for sedation. FINDINGS: On preliminary ultrasound images obtained, there is widely patent carotid and right jugular vein in the supraclavicular fossa. Successful ultrasound and fluoroscopy-guided placement of a 22 cm long 6.6-Bhutanese Dignity port catheter with the tip in the distal SVC. There was easy blood withdrawal and saline clearance. 5 units of heparin was injected in the port to prevent clotting. IR/IR us guide venous access IMPRESSION: Successful ultrasound and fluoroscopy-guided placement of a right jugular tunneled catheter/port with its tip in the distal SVC. Fluoroscopy time 3.8 minutes. Dose area product: 25 mGy. Images: 2.
--- NOTE | 2020-11-22 11:20 | P.CONAN_ITS ---
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 Surgical History Surgical History History of breast surgery History of liver transplant History of modified radical mastectomy of left breast (~10/07/20) History of splenectomy S/P breast lumpectomy Social History Social History Are you a primary healthcare applications analyst to a significant other at home: No Do you presently have visiting nurse or other home services: No Alcohol intake: never Smoking Status: Never smoker Second Hand Smoke Exposure: No Advance Directives: No Advance Directives Information Provided: No Recently lost weight without trying: No service: No Current occupational status: employed Meds Allergies Allergy/AdvReac Type Severity Reaction Status Date / Time Peanut Butter Allergy Mild Rash Verified 11/22/20 12:00 Home Medications Medication Instructions Recorded Confirmed Type alcohol swabs pad TOPICAL 08/21/20 11/10/20 History allopurinol 300 mg tablet 300 mg PO DAILY 08/21/20 11/12/20 History blood sugar diagnostic #10 ea 08/21/20 11/10/20 History clonidine HCl 0.3 mg tablet 0.3 mg PO ONCE 08/21/20 11/12/20 History furosemide 20 mg tablet 20 mg PO DAILY 08/21/20 11/12/20 History lancets 28 gauge #100 ea 08/21/20 11/10/20 History mycophenolate mofetil 250 mg 250 mg PO BID 08/21/20 11/12/20 History capsule omega-3 fatty acids 1,000 mg 1,000 mg PO DAILY 08/21/20 11/12/20 History capsule pediatric multivitamin 1 tab PO DAILY 08/21/20 11/12/20 History tacrolimus 0.5 mg capsule 0.5 mg PO BID 08/21/20 11/12/20 History aspirin 81 mg tablet,delayed 81 mg PO DAILY 09/02/20 11/12/20 History release Tresiba FlexTouch U-100 20 unit SUBCUT QAM 10/04/20 11/12/20 History atorvastatin 1 tab PO DAILY 10/07/20 11/12/20 History calcium carbonate 1,000 mg PO BID 10/29/20 11/12/20 History Exam Airway Mallampati Class: II TM Dist: >3cm Neck ROM: Full Loose/Missing/Broken Teeth: Yes Heart: RRR Lungs: NL Assessment and Plan Assessment Anesthesia Assessment: Anesthesia Plan Discussed and Chart Reviewed Final Anesthetic Review NPO: Yes ASA Class: III Patient Risk: Intermediate Procedure Risk: Low Anesthetic Plan Anesthetic Plan: MAC: Disposition: Standard PACU
[2020-11-22 12:01] VITALS: BMI 31.4
[2020-11-22 12:11] LABS: MANUAL DIFF FLAG NO
[2020-11-22 12:14] LABS: Basophils Absolute Auto 0.1 X10*3/uL (0.0-0.2); Basophils Percent Auto 0.9 % (0-2); Eosinophils Absolute Auto 0.2 X10*3/uL (0.0-0.4); Eosinophils Percent Auto 2.4 % (0-4); Hematocrit 42.2 % (37-47); Hemoglobin 13.6 g/dl (12.0-16.0); Imm Gran Abs Auto 0.01 X10*3/uL (0.00-0.03); Imm Gran Pct Auto 0.1 % (0.0-0.4); Lymphocytes Percent Auto 54.8 % (20-40); Mean Corpuscular HGB Conc 32.2 g/dl (31.0-35.0); Mean Corpuscular Hemoglobin 31.4 pg (27.0-33.0); Mean Corpuscular Volume 97.5 fL (80-98); Mean Platelet Volume 10.5 fL (9.4-12.3); Monocytes Absolute Auto 1.2 X10*3/uL (0.1-1.2); Monocytes Percent Auto 13.2 % (2-11); Neutrophils Absolute Auto 2.6 X10*3/uL (2.0-8.3); Neutrophils Percent Auto 28.6 % (45-73); Platelet Count 370 X10*3/uL (160-400); Red Blood Count 4.33 X10*6/uL (4.20-5.50); Red Cell Distribution Width 14.5 % (11.0-16.0); White Blood Count 9.1 X10*3/uL (4.8-10.8)
[2020-11-22 12:15] LABS: NRBC Pct Auto 1.3 /100WBC (0.0-0.2)
[2020-11-22 12:22] LABS: Prothrombin Time 12.4 SEC (10.8-13.0)
[2020-11-22 12:23] VITALS: BP 122/71; PULSE 87; RESP 16; TEMP 36.7; O2SAT 96
[2020-11-22 12:24] LABS: Partial Thromboplastin Time 34.4 SEC (24.1-38.0)
[2020-11-22 12:26] VITALS: BMI 31.4
[2020-11-22] MEDS: ceFAZolin Sodium 1 GM VIAL 2 GM IV (12:37)
[2020-11-22 12:44] LABS: Anion Gap 14 (12-20); Carbon Dioxide 24 mmol/L (22-29); Chloride 105 mmol/L (96-108); Potassium 4.7 mmol/l (3.3-5.1); Sodium 138 mmol/L (135-145)
--- NOTE | 2020-11-22 13:00 | IR_ITS ---
PROCEDURE: ULTRASOUND AND FLUOROSCOPY INSERTION OF RIGHT PORT-A-CATH CLINICAL INFORMATION: Left breast cancer. Needs chemotherapy. COMPARISON: None TECHNIQUE: Following explaining ultrasound and fluoroscopy-guided placement of a right tunneled port catheter through right jugular vein procedure, benefits and risks, a written consent was obtained. Patient was placed supine on fluoroscopy table, and preliminary ultrasound imaging was obtained through the right neck. An optimal site was selected and marked on the skin. All elements of maximal sterile barrier technique followed including use of cap, mask, sterile gown, sterile gloves, a sterile full body drape, and hand hygiene. Also followed skin preparation with 2% chlorhexidine for cutaneous antisepsis, and sterile ultrasound preparation with sterile gel and probe cover when applicable. 1% lidocaine was injected at puncture site. Under sterile ultrasound guidance, a single wall needle was advanced and right jugular vein lower in the neck was punctured. After obtaining venous return, a thin guidewire was advanced over the needle under fluoroscopy into the SVC and needle withdrawn. A 3-Portuguese dilator with wire was left in place. Approximately 1 gauze length area was cleaned from the right neck puncture. 1% lidocaine was injected. A small skin incision was performed. The subcutaneous soft tissues are dissected and a cavity was created. A small chamber was inserted in outflow tract. 1% lidocaine was then injected subcutaneously from chest wall pocket to the neck incision. A blind tunneler attached to a catheter was inserted subcutaneously from the chest wall incision all the way into the right neck lesion and the tunneler was pulled. The tunneler was sized approximately 22 cm. The outside part of the catheter was connected to the port. The port was then anchored to the subcutaneous soft tissues with 3-0 nylon sutures on the right and left of the port. The existent guidewire was removed and a 0.35 J-wire was inserted under fluoroscopy and placed in IVC. The tract was dilated up to a 7-Portuguese with dilators. A 7-Portuguese dilator sheath was then inserted over the guidewire. The guidewire and the dilator was removed and the peel-away sheath was left in place. The size catheter was then inserted through a peel-away sheath and held in place as peel-away sheath was removed under fluoroscopy. The catheter tip now lies in the distal SVC. A single image was obtained for documentation. 3-0 absorbable sutures were placed along the right chest wall lesion. A single absorbable suture was placed along the right neck incision. Subsequently 3-0 nylon absorbable sutures were placed along the skin at the chest incision site. Steri-Strips were applied on the chest wall lesion and the right neck lesion with simple dressing placed post-procedure. The patient tolerated the procedure extremely well. Anesthesia was utilized for sedation. FINDINGS: On preliminary ultrasound images obtained, there is widely patent carotid and right jugular vein in the supraclavicular fossa. Successful ultrasound and fluoroscopy-guided placement of a 22 cm long 6.6-Portuguese Dignity port catheter with the tip in the distal SVC. There was easy blood withdrawal and saline clearance. 5 units of heparin was injected in the port to prevent clotting. IR/IR cvc insert tunnel w prt/powder core tester IMPRESSION: Successful ultrasound and fluoroscopy-guided placement of a right jugular tunneled catheter/port with its tip in the distal SVC. Fluoroscopy time 3.8 minutes. Dose area product: 25 mGy. Images: 2.
[2020-11-22 14:00] LABS: Glucose, Whole Blood 113 mg/dL (60-115)
[2020-11-22] MEDS: Lidocaine HCl 1 % MPF 5 ML VIAL 10 ML SUBCUT (14:57)
[2020-11-22 15:05] VITALS: BP 129/70; PULSE 88; RESP 16; TEMP 36.7; O2SAT 97
[2020-11-22 15:20] VITALS: BP 137/73; PULSE 83; RESP 16; O2SAT 95
[2020-11-22 15:35] VITALS: BP 145/82; PULSE 85; RESP 16; O2SAT 95
[2020-11-22 15:50] VITALS: BP 123/65; PULSE 87; RESP 16; O2SAT 95
[2020-11-22 16:05] VITALS: BP 137/75; PULSE 90; RESP 16; O2SAT 95
== END 2020-11-22 16:24 | disposition home or self-care (01) ==
PROVIDERS: PCP Internal Medicine; Visit Provider Radiology Diagnostic Radiology
DX: Z45.2 Encounter for adjustment and management of vascular access device (principal); C50.912 Malignant neoplasm of unspecified site of left female breast
CPT/HCPCS: 36415; 36561; 76937; 80051; 82947; 85025; 85610; 85730; C1769; C1788; C1892; J0690; J1642; J2250; J3010

== ENCOUNTER 2020-11-24 06:48 | Outpatient (REF) | payer MEDICARE, MEDICAID, SELFPAY ==
[2020-11-24 07:21] LABS: Hematocrit 40.1 % (37-47); Mean Corpuscular HGB Conc 32.4 g/dl (31.0-35.0); Mean Corpuscular Hemoglobin 31.8 pg (27.0-33.0); Mean Platelet Volume 10.4 fL (9.4-12.3); Platelet Count 342 X10*3/uL (160-400); Red Blood Count 4.09 X10*6/uL (4.20-5.50); Red Cell Distribution Width 14.6 % (11.0-16.0); White Blood Count 8.3 X10*3/uL (4.8-10.8)
[2020-11-24 07:22] LABS: NRBC Pct Auto 2.2 /100WBC (0.0-0.2)
[2020-11-24 07:33] LABS: Estimated Average Glucose 146 mg/dL; Hemoglobin A1c % 6.7 %
[2020-11-24 07:48] LABS: Alanine Aminotransferase 54 U/L (0-31); Albumin Level 3.6 g/dL (3.5-5.0); Alkaline Phosphatase 166 U/L (39-117); Anion Gap 14 (12-20); Aspartate Amino Transferase 46 U/L (5-31); Bilirubin Total 0.4 mg/dL (0.0-1.0); Blood Urea Nitrogen 23 mg/dL (9-16); Carbon Dioxide 26 mmol/L (22-29); Chloride 104 mmol/L (96-108); Cholesterol 169 mg/dL; Estimated Glomerular Filt Rate > 60; Glucose Fasting 176 mg/dL (60-99); HDL Cholesterol 36 mg/dL; LDL Cholesterol Calculated 90 mg/dl; Potassium 4.8 mmol/l (3.3-5.1); Sodium 139 mmol/L (135-145); Total Protein 6.9 g/dL (6.5-8.0); Triglycerides 218 mg/dL
[2020-11-24 07:49] LABS: Atypical Lymph Absolute Manual 0.1 x10*3/uL; Atypical Lymphs Percent Manual 1 % (0-6); Band Neutrophils Percent 0 % (3-5); Basophils Abs Manual 0.2 X10*3/uL (0.0-0.3); Basophils Percent Manual 2 % (0-1); Eosinophils Absolute Manual 0.1 X10*3/UL (0.0-0.8); Eosinophils Percent Manual 1 % (0-4); Lymphocytes Absolute Manual 6.1 X10*3/uL (0.6-4.8); Lymphocytes Percent Manual 74 % (20-40); Monocytes Absolute Manual 0.8 X10*3/uL (0.0-1.2); Monocytes Percent Manual 10 % (2-11); Neutrophils Percent Manual 12 % (45-73); Nucleated Red Blood Cells 4 /100WBC (0-0)
[2020-11-24 07:50] LABS: Large Platelet PRESENT; Platelet Estimate NORMAL (NORMAL); Platelet Morphology Comment NOTED; RBC Morphology NOTED
[2020-11-24 07:52] LABS: Acanthocytes 1+; Burr Cells 1+; Hypochromasia 1+; Macrocytosis 1+; Ovalocytes 1+; Polychromasia 1+
[2020-11-24 07:56] LABS: Reflex LDLD? No
[2020-11-24 08:09] LABS: Thyroid Stimulating Hormone 1.08 uIU/mL (0.32-4.0); Vitamin D 25-OH Total 31.6 ng/mL (>30)
== END 2020-11-24 06:49 | disposition home or self-care (01) ==
LOC: HO.LAB 06:48
PROVIDERS: Visit Provider Internal Medicine
DX: E11.22 Type 2 diabetes mellitus with diabetic chronic kidney disease (principal); I12.9 Hypertensive chronic kidney disease with stage 1 through stage 4 chronic kidney disease, or unspecified chronic kidney disease; N18.30 Chronic kidney disease, stage 3 unspecified; E78.00 Pure hypercholesterolemia, unspecified; E03.9 Hypothyroidism, unspecified; D72.820 Lymphocytosis (symptomatic); E83.52 Hypercalcemia; D72.9 Disorder of white blood cells, unspecified; Z94.4 Liver transplant status
CPT/HCPCS: 36415; 80053; 80061; 82306; 83036; 84443; 85007; 85027

== ENCOUNTER 2020-11-25 08:02 | Outpatient (REF) | payer MEDICARE, MEDICAID, SELFPAY ==
[2020-11-25 09:42] LABS: Glucose Urine UA NEG (NEG); Leukocyte Esterase Urine NEG (NEG); Nitrite Urine NEG (NEG); PH 7.5 (5.0-8.0); Specific Gravity - Urine 1.015 (1.005-1.025); Urine Blood NEG (NEG); Urine Ketones NEG (NEG); Urine Protein NEG (NEG-TRACE)
[2020-11-25 09:43] LABS: Appearance Urine CLEAR; Color Urine YELLOW
[2020-11-25 10:32] LABS: Creatinine Urine 23.32 mg/dL; Microalbumin Urine < 5.0 mg/L
== END 2020-11-25 08:03 | disposition home or self-care (01) ==
LOC: HO.LNP 08:02
PROVIDERS: PCP Internal Medicine; Visit Provider Internal Medicine
DX: E78.00 Pure hypercholesterolemia, unspecified (principal); E11.65 Type 2 diabetes mellitus with hyperglycemia; E03.9 Hypothyroidism, unspecified; I10 Essential (primary) hypertension
CPT/HCPCS: 81003; 82043

== ENCOUNTER → 2020-11-29 14:56 | Outpatient (REF) | payer MEDICARE, MEDICAID, SELFPAY ==
--- NOTE | 2020-11-29 14:59 | CA_ITS ---
Transthoracic Echocardiogram Patient (Last, First, Middle): Seema aDvid, Gender: Female Date of : 1955 Age: 65 Procedure Date: 11/29/2020 Procedure Type: Transthoracic Echocardiogram Location: OP Height: 154.94 cm Weight: 75.75 kg BSA: 1.75 m2 Heart Rate: bpm BP: 132 / 80 mmHg Engine Emission Technician: VLAD Referring MD: Winsome Coto MD Symptoms: prechemo assessment Study Quality: Fair ECG Rhythm: Sinus Conclusions: - The left ventricular systolic function is normal. The visually estimated ejection fraction is between 60-65%. - No obvious valvular pathology seen on this study. Findings Procedure Information Contrast agent, definity, is being given per protocol without apparent complications. Left Ventricle Normal left ventricular cavity size. There is normal left ventricular wall thickness. The left ventricular systolic function is normal. The visually estimated ejection fraction is between 60-65%. There is no evidence of regional wall motion abnormalities. Diastolic function is normal for age. Right Ventricle Normal right ventricular cavity size and systolic function. Atria Both atria are normal in size. Aortic Valve There is a normal trileaflet aortic valve. There is no aortic valve stenosis. There is no aortic valve regurgitation. Mitral Valve The mitral valve appears normal. There is trace mitral valve regurgitation. There is no mitral valve stenosis. Pulmonic Valve The pulmonic valve was not well visualized. Tricuspid Valve Normal tricuspid valve structure. There is trace tricuspid valve regurgitation. The pulmonary artery systolic pressure is normal. Great Vessels The aortic annulus, sinuses of valsalva, and asc aorta are normal in size. Venous The inferior vena cava is normal in size and collapses greater than 50% with inspiration. Pericardium/Pleural There is no evidence of pericardial effusion. Prior Study Comparison No prior study available for comparison. Recommendations, Care & Conclusions No obvious valvular pathology seen on this study. Measurements 2D Linear Measurements IVSd: 1.00 0.6-0.9/0.6-1.0 cm LVIDd: 3.42 3.9-5.3/4.2-5.9 cm LVIDd Index: 1.95 2.4-3.2/2.2-3.1 cm/m2 LVIDs: 2.25 2.0-3.6 cm LVPWd: 1.03 0.7-1.1 cm Ao Root: 3.00 2.1-3.5 cm LA Diam: 3.30 2.7-3.8/3.0-4.0 cm LAIDs Index: 1.89 1.5-2.3 cm/m2 LV Mass: 126.75 67-162/88-224 g LV Mass Index: 72.43 43-95/49-115 g/m2 LVOT Diam: 2.00 3.0+(-)1.3 cm 2D Systolic Function EF 4C: 65.30 >55% EF 2C: 61.20 >55% EF BiP: 64.50 >55% Mitral Valve MV Pk E: 0.66 MV PK A: 0.78 MV Decel Time: 268.00 E/A: 0.80 E'Lateral: 6.87 E'Medial: 7.16 E/E' Med: 9.10 E/E' Lat: 9.50 PHT: 78.00 MVA PHT: 2.82 Decel Delta: 2.45 Aortic Valve AoV Pk Kalin: 1.28 AoV Mn Kalin: 0.94 AoV VTI: 0.26 AoV Pk Grad: 7.00 Aov Mn Grad: 4.00 TRAVIS Cont.VTI: 3.09 LVOT LVOT Pk Kalin: 1.29 LVOT Mn Kalin: 0.79 LVOT VTI: 0.25 LVOT Pk Grad: 7.00 LVOT Mn Grad: 3.00 LVOT Diam: 2.00 LVOT Area: 3.14 Diastolic Function MV Pk E: 0.66 MV Pk A: 0.78 E/A: 0.80 E'Medial: 7.16 E/E' Med: 9.10 E' Laterial: 6.87 E/E' Lat: 9.50 Tricuspid Valve TR Pk Kalin: 2.09 TR Pk Grad: 17.00 RA Press: 3.00 RVSP: 20.00 Great Vessels Aorta Ao Root-2D: 3.00 2.0-3.7 cm Ao Asc: 3.00 2.1-3.4 cm Ao Arch: 2.40 Updated in Other Vendor System with Status of Final Des Blackman MD electronically signed on 11/29/2020 5:13:34 PM with status of Final
== END ==
LOC: HO.CARD 14:56
PROVIDERS: Visit Provider Internal Medicine Medical Oncology
DX: C50.912 Malignant neoplasm of unspecified site of left female breast (principal)
CPT/HCPCS: 93306; Q9957

== ENCOUNTER → 2020-12-07 13:27 | Outpatient (BNVA) | payer MEDICARE, MEDICAID, SELFPAY | PROVIDERS: PCP Internal Medicine; Visit Provider Internal Medicine Endocrinology, Diabetes & Metabolism | DX: Z76.89 Persons encountering health services in other specified circumstances (principal) | CPT/HCPCS: Q3014 ==

== ENCOUNTER 2020-12-10 16:06 | Inpatient (IN) | payer MEDICARE, MEDICAID, SELFPAY ==
[2020-12-10 16:16] VITALS: BP 91/56; PULSE 76; RESP 18; TEMP 36.5; O2SAT 96; BMI 31.6
--- NOTE | 2020-12-10 16:49 | ED.GENADULT ---
HPI - General Adult General Chief complaint: General Medical Stated complaint: allergic reaction to chemo Time Seen by Provider: 12/10/20 16:22 Source: patient Mode of arrival: wheelchair Limitations: no limitations History of Present Illness HPI narrative: Pateint is coming today from the oncology office, pt seen by Nnamdi Golden. Patient received her 1st cycle of chemotherapy today. After chemo, patient developed hypotension with a systolic blood pressure between 50 and 70, patient was immediately given 2 L of normal saline. Patient was dizzy, pale and diaphoretic. Patient also developed profuse diarrhea. At this time in the ED, patient states that she feels much better, continues having occasional diarrhea but states it has slowed down. Patient denies any dizziness, no abdominal pain, no chills. Related Data Home Medications Medication Instructions Recorded Confirmed alcohol swabs pad TOPICAL 08/21/20 12/07/20 allopurinol 300 mg tablet 300 mg PO DAILY 08/21/20 12/07/20 blood sugar diagnostic #10 ea 08/21/20 12/07/20 clonidine HCl 0.3 mg tablet 0.3 mg PO ONCE 08/21/20 12/07/20 furosemide 20 mg tablet 20 mg PO DAILY 08/21/20 12/07/20 lancets 28 gauge #100 ea 08/21/20 12/07/20 mycophenolate mofetil 250 mg 250 mg PO BID 08/21/20 12/07/20 capsule omega-3 fatty acids 1,000 mg 1,000 mg PO DAILY 08/21/20 12/07/20 capsule pediatric multivitamin 1 tab PO DAILY 08/21/20 12/07/20 aspirin 81 mg tablet,delayed 81 mg PO DAILY 09/02/20 12/07/20 release Tresiba FlexTouch U-100 20 unit SUBCUT QAM 10/04/20 12/07/20 atorvastatin 1 tab PO DAILY 10/07/20 12/07/20 calcium carbonate 1,000 mg PO BID 10/29/20 12/07/20 lisinopril 5 mg tablet 5 mg PO DAILY 12/07/20 12/07/20 tacrolimus 0.5 mg capsule 0.5 mg PO BID 12/07/20 12/07/20 Previous Rx's Medication Instructions Recorded cholecalciferol (vitamin D3) 1,250 1,250 mcg PO Q2W 90 Days #7 cap 09/02/20 mcg (50,000 unit) capsule diltiazem HCl 180 mg 180 mg PO DAILY 90 Days #90 cap 09/02/20 capsule,extended release 24 hr dulaglutide 1.5 mg/0.5 mL 1.5 mg SUBCUT QWEEK 90 Days #6.5 ml 09/02/20 subcutaneous pen injector levothyroxine 100 mcg tablet 100 mcg PO DAILY 90 Days #90 tab 09/02/20 metformin 500 mg tablet 500 mg PO BID #90 tab 09/02/20 pen needle, diabetic 31 gauge x #100 ea 09/02/20 3/16 repaglinide 0.5 mg tablet 0.5 mg PO TID 90 Days #270 tab 09/02/20 dexamethasone [Decadron] 4 mg PO BID #100 tab 12/09/20 ondansetron HCl [Zofran] 8 mg PO Q8H PRN #50 tab 12/09/20 Allergies Allergy/AdvReac Type Severity Reaction Status Date / Time Peanut Butter Allergy Mild Rash Verified 11/22/20 12:00 Review of Systems Review of Systems: Constitutional :No Fever, No Chills, No Night Sweats, No Fatigue, No Malaise ENT/Mouth : No Hearing loss, No Ear Pain, No Nasal Congestion, No Sinus Pain, No Hoarseness, No sore throat, No Rhinorrhea, No Swallowing Difficulty Eyes: No Eye Pain, No Swelling, No Redness, No Foreign Body, No Discharge, No Vision Changes Cardiovascular : No Chest Pain, No SOB, No Dyspnea on Exertion, No Orthopnea, No Edema, No Palpitations Respiratory : No Cough, No Sputum, No Wheezing, No Smoke Exposure, No Dyspnea Gastrointestinal : No Nausea, No Vomiting, complaining of diarrhea, No Constipation, No abdominal Pain, No Hematochezia, No Melena Genitourinary : no irregular bleeding, No Dysuria, No Urinary Frequency, No Hematuria, No Urinary Incontinence, No Urgency, No Flank Pain, No Urinary Flow Changes, No Hesitancy Musculoskeletal : No joint pain, No Myalgias, No Joint Swelling Skin : No Skin Lesions, No rash Neuro : No Weakness, No Numbness, No Paresthesias, No Loss of Consciousness, No Dizziness, No Headache Psych : No Anxiety/Panic, No Depression, No SI/HI/AH/VH, No Social Issues, Heme/Lymph: No Bruising, No Bleeding,No Lymphadenopathy Endocrine : No Polyuria, No Polydipsia, No Temperature Intolerance [facility] Past Medical History Medical History Abnormal ultrasound of breast Age-related osteoporosis without current pathological fracture Cerebral palsy Chronic kidney disease, stage 3 unspecified Class 1 obesity with body mass index (BMI) of 30.0 to 30.9 in adult Developmental disability Diabetes type 2, uncontrolled Ductal carcinoma in situ of left breast Essential (primary) hypertension Hyperlipidemia, unspecified Hypothyroidism, unspecified Invasive ductal carcinoma of left breast long-term (current) use of insulin Type 2 diabetes mellitus with diabetic nephropathy Surgical History History of breast surgery History of liver transplant History of modified radical mastectomy of left breast (~10/07/20) History of splenectomy S/P breast lumpectomy Family History Family History Father Aneurysm Mother Cancer Paternal Grandfather Diabetes Brother No problems noted. Social History Social History Alcohol intake: never Smoking Status: Never smoker Second Hand Smoke Exposure: No Use of substances other than those prescribed or required for medical reasons: No Advance Directives: No Advance Directives Information Provided: No service: No Current occupational status: employed Physical Exam Vital Signs: Vital Signs: Last Vital Signs Temp 97.7 F 12/10/20 19:08 Pulse 97 12/10/20 19:13 Resp 16 12/10/20 19:08 BP 143/77 H 12/10/20 19:13 Pulse Ox 96 12/10/20 19:08 Body Mass Index 31.6 Appearance: Alert. Oriented X3. No acute distress. Eyes: Pupils equal, round and reactive to light. Chronic amblyopia of left eye ENT: Pharynx normal. Neck: Normal inspection. Neck supple. No lymph nodes noted. No crepitus CVS: Normal heart rate and rhythm. Pulses normal. Normal S1 and S2 Respiratory: No respiratory distress. Breath sounds normal. No Wheezing. No rales Abdomen: Soft and nontender. No rigidity. No distention. good BS x4 Skin: Skin warm and dry. Extremities: No lower extremity edema. Neuro: Oriented X 3. No motor deficit. No sensory deficit. Moving all extermities. No slurred speech. Course Course Course Narrative: Reviewing Dr. Coto notes, patient is to be admitted to the hospital, stool studies needed, patient needs Decadron 4 mg b.i.d. for the next 2 days, tomorrow patient is to be started on Neulasta Onpro. I discussed the patient with our hospitalist DAMON Rahman, patient being admitted Medical Decision Making Lab Data Result diagrams: 12/10/20 17:14 12/10/20 17:14 Labs: Lab Results 12/10/20 12/10/20 12/10/20 Range/Units 17:14 17:14 17:46 WBC 11.9 H (4.8-10.8) X10*3/uL RBC 4.02 L (4.20-5.50) X10*6/uL Hgb 12.6 (12.0-16.0) g/dl Hct 39.1 (37-47) % MCV 97.3 (80-98) fL MCH 31.3 (27.0-33.0) pg MCHC 32.2 (31.0-35.0) g/dl RDW 14.5 (11.0-16.0) % Plt Count 358 (160-400) X10*3/uL MPV 10.8 (9.4-12.3) fL Immature Gran % (Auto) 0.3 (0.0-0.4) % Neut % (Auto) 87.4 H (45-73) % Lymph % (Auto) 9.8 L (20-40) % [place] % (Auto) 2.1 (2-11) % Eos % (Auto) 0.0 (0-4) % Baso % (Auto) 0.4 (0-2) % Lymph # (Auto) 1.2 (1.2-4.9) X10*3/uL [place] # (Auto) 0.3 (0.1-1.2) X10*3/uL Eos # (Auto) 0.0 (0.0-0.4) X10*3/uL Baso # (Auto) 0.1 (0.0-0.2) X10*3/uL Abs Immat Gran (auto) 0.04 H (0.00-0.03) X10*3/uL Absolute Neuts (auto) 10.4 H (2.0-8.3) X10*3/uL Absolute Nucleated RBC 0.050 H (0.0-0.012) X10*3/uL Nucleated RBC % (auto) 0.4 H (0.0-0.2) /100WBC Sodium 137 (135-145) mmol/L Potassium 4.8 (3.3-5.1) mmol/l Chloride 106 (96-108) mmol/L Carbon Dioxide 21 L (22-29) mmol/L Anion Gap 15 (12-20) BUN 44 H (9-16) mg/dL Creatinine 1.45 H (0.5-1.4) mg/dL Estim Creat Clear Calc 35.5 Estimated GFR 36 POC Glucose (60-115) mg/dL Random Glucose 401 H* (60-115) mg/dL Calcium 8.2 L D (8.4-10.2) mg/dL Magnesium 1.8 (1.6-2.6) mg/dL Total Bilirubin 0.4 (0.0-1.0) mg/dL Direct Bilirubin 0.2 (0.0-0.5) mg/dL AST 93 H (5-31) U/L ALT 81 H (0-31) U/L Alkaline Phosphatase 174 H (39-117) U/L Total Protein 6.4 L (6.5-8.0) g/dL Albumin 3.5 (3.5-5.0) g/dL Lipase 19 (8-78) U/L Stool Leukocytes, Qual NEGATIVE (NEGATIVE) 12/10/20 Range/Units 20:03 WBC (4.8-10.8) X10*3/uL RBC (4.20-5.50) X10*6/uL Hgb (12.0-16.0) g/dl Hct (37-47) % MCV (80-98) fL MCH (27.0-33.0) pg MCHC (31.0-35.0) g/dl RDW (11.0-16.0) % Plt Count (160-400) X10*3/uL MPV (9.4-12.3) fL Immature Gran % (Auto) (0.0-0.4) % Neut % (Auto) (45-73) % Lymph % (Auto) (20-40) % [place] % (Auto) (2-11) % Eos % (Auto) (0-4) % Baso % (Auto) (0-2) % Lymph # (Auto) (1.2-4.9) X10*3/uL [place] # (Auto) (0.1-1.2) X10*3/uL Eos # (Auto) (0.0-0.4) X10*3/uL Baso # (Auto) (0.0-0.2) X10*3/uL Abs Immat Gran (auto) (0.00-0.03) X10*3/uL Absolute Neuts (auto) (2.0-8.3) X10*3/uL Absolute Nucleated RBC (0.0-0.012) X10*3/uL Nucleated RBC % (auto) (0.0-0.2) /100WBC Sodium (135-145) mmol/L Potassium (3.3-5.1) mmol/l Chloride (96-108) mmol/L Carbon Dioxide (22-29) mmol/L Anion Gap (12-20) BUN (9-16) mg/dL Creatinine (0.5-1.4) mg/dL Estim Creat Clear Calc Estimated GFR POC Glucose 276 H (60-115) mg/dL Random Glucose (60-115) mg/dL Calcium (8.4-10.2) mg/dL Magnesium (1.6-2.6) mg/dL Total Bilirubin (0.0-1.0) mg/dL Direct Bilirubin (0.0-0.5) mg/dL AST (5-31) U/L ALT (0-31) U/L Alkaline Phosphatase (39-117) U/L Total Protein (6.5-8.0) g/dL Albumin (3.5-5.0) g/dL Lipase (8-78) U/L Stool Leukocytes, Qual (NEGATIVE) Discharge Plan Discharge Clinical Impression: Diarrhea, Dehydration, Acute hypotension Patient Disposition: Admitted As Inpatient Prescriptions: No Action Tresiba FlexTouch U-100 100 unit/mL (3 mL) insulin pen 20 unit subcut QAM RF: 0 calcium carbonate 500 mg calcium (1,250 mg) tablet,chewable 1,000 mg PO BID RF: 0 ondansetron HCl [Zofran] 4 mg Tablet 8 mg PO Q8H PRN (Reason: Nausea And Vomiting) Qty: 50 RF: 4 dexamethasone [Decadron] 4 mg Tablet 4 mg PO BID Qty: 100 RF: 4 atorvastatin 20 mg tablet 1 tab PO DAILY RF: 0 aspirin [Adult Aspirin Regimen] 81 mg tablet,delayed release (DR/EC) 81 mg PO DAILY RF: 0 dulaglutide 1.5 mg/0.5 mL pen injector 1.5 mg subcut QWEEK 90 Days Qty: 6.5 RF: 3 metformin 500 mg tablet 500 mg PO BID Qty: 90 RF: 3 repaglinide 0.5 mg tablet 0.5 mg PO TID 90 Days Qty: 270 RF: 3 (DME) pen needle, diabetic 31 gauge x 3/16 needle See Rx Instructions ea subcut DAILY Qty: 100 RF: 3 levothyroxine 100 mcg tablet 100 mcg PO DAILY 90 Days Qty: 90 RF: 3 diltiazem HCl 180 mg capsule,extended release 24hr 180 mg PO DAILY 90 Days Qty: 90 RF: 3 cholecalciferol (vitamin D3) 1,250 mcg (50,000 unit) capsule 1,250 mcg PO Q2W 90 Days Qty: 7 RF: 3 mycophenolate mofetil 250 mg capsule 250 mg PO BID RF: 0 allopurinol 300 mg tablet 300 mg PO DAILY RF: 0 (DME) blood sugar diagnostic Strip See Rx Instructions ea Not Applicable TID Qty: 10 RF: 0 alcohol swabs Pads, Medicated topical RF: 0 furosemide 20 mg tablet 20 mg PO DAILY RF: 0 clonidine HCl 0.3 mg tablet 0.3 mg PO ONCE RF: 0 (DME) lancets 28 gauge misc See Rx Instructions ea topical TID Qty: 100 RF: 0 omega-3 fatty acids [Fish Oil Concentrate] 1,000 mg capsule 1,000 mg PO DAILY RF: 0 Flintstones Multivitamin Tablet,Chewable 1 tab PO DAILY RF: 0 tacrolimus 0.5 mg capsule 0.5 mg PO BID RF: 0 lisinopril 5 mg tablet 5 mg PO DAILY RF: 0
[2020-12-10 17:01] VITALS: BP 120/62; PULSE 77; RESP 15; O2SAT 94
[2020-12-10] MEDS: 0.9 % Sodium Chloride 1,000 ML 999 ML IVCONT (17:15)
[2020-12-10 17:20] LABS: MANUAL DIFF FLAG NO
[2020-12-10 17:33] LABS: Basophils Absolute Auto 0.1 X10*3/uL (0.0-0.2); Basophils Percent Auto 0.4 % (0-2); Hematocrit 39.1 % (37-47); Hemoglobin 12.6 g/dl (12.0-16.0); Imm Gran Abs Auto 0.04 X10*3/uL (0.00-0.03); Imm Gran Pct Auto 0.3 % (0.0-0.4); Lymphocytes Absolute Auto 1.2 X10*3/uL (1.2-4.9); Lymphocytes Percent Auto 9.8 % (20-40); Mean Corpuscular HGB Conc 32.2 g/dl (31.0-35.0); Mean Corpuscular Hemoglobin 31.3 pg (27.0-33.0); Mean Corpuscular Volume 97.3 fL (80-98); Mean Platelet Volume 10.8 fL (9.4-12.3); Monocytes Absolute Auto 0.3 X10*3/uL (0.1-1.2); Monocytes Percent Auto 2.1 % (2-11); NRBC Pct Auto 0.4 /100WBC (0.0-0.2); Neutrophils Absolute Auto 10.4 X10*3/uL (2.0-8.3); Neutrophils Percent Auto 87.4 % (45-73); Platelet Count 358 X10*3/uL (160-400); Red Blood Count 4.02 X10*6/uL (4.20-5.50); Red Cell Distribution Width 14.5 % (11.0-16.0); White Blood Count 11.9 X10*3/uL (4.8-10.8)
[2020-12-10 17:59] LABS: Alanine Aminotransferase 81 U/L (0-31); Albumin Level 3.5 g/dL (3.5-5.0); Alkaline Phosphatase 174 U/L (39-117); Anion Gap 15 (12-20); Aspartate Amino Transferase 93 U/L (5-31); Bilirubin Direct 0.2 mg/dL (0.0-0.5); Bilirubin Total 0.4 mg/dL (0.0-1.0); Blood Urea Nitrogen 44 mg/dL (9-16); Calcium 8.2 mg/dL (8.4-10.2); Carbon Dioxide 21 mmol/L (22-29); Chloride 106 mmol/L (96-108); Creatinine Clr Calc Pharmacy 35.5; Estimated Glomerular Filt Rate 36; Glucose Random 401 mg/dL (60-115); Lipase 19 U/L (8-78); Potassium 4.8 mmol/l (3.3-5.1); Sodium 137 mmol/L (135-145); Total Protein 6.4 g/dL (6.5-8.0)
[2020-12-10] MEDS: Insulin Regular, Human 100 UNIT/ML 3 ML VIAL 10 UNIT IVPUSH (18:30)
[2020-12-10 19:08] VITALS: BP 124/70; PULSE 88; RESP 16; TEMP 36.5; O2SAT 96
[2020-12-10 19:12] VITALS: BP 124/70; PULSE 91
[2020-12-10 19:13] VITALS: BP 135/72; BP 143/77; PULSE 93; PULSE 97
[2020-12-10 19:13] LABS: Leukocytes Stool Qualitative NEGATIVE (NEGATIVE)
[2020-12-10 19:52] LABS: Magnesium 1.8 mg/dL (1.6-2.6)
[2020-12-10 20:07] LABS: Glucose, Whole Blood 276 mg/dL (60-115)
--- NOTE | 2020-12-10 20:45 | PM.IMHP ---
History of Present Illness Date of Service: 12/10/20 Chief Complaint: Diarrhea, hypotension 65 year old woman presented to the ED from oncology where she was receiving infusion of chemotherapy for breast cancer treatment. Patient started having diaphoresis and dizziness and had diarrhea and became hypotensive. Received IV fluid and thereafter felt better. Currently no further diarrhea or abd pain. No skin rashes. No chest pain or dyspnea. No fevers/chills. Review of Systems Review of Systems: Yes all other systems are reviewed and are negative Constitutional: Comments: No fevers or chills Eyes: Comments: No vision changes ENT: Comments: No difficulty swallowing Cardiovascular: Comments: No chest pain or palpitaitons Respiratory: Comments: No dyspnea or cough Gastrointestinal: Comments: No abd pain, nausea, vomiting, diarrhea currently Musculoskeletal: Comments: No joint pain Neurologic: Comments: No weakenss or numbness in arms/legs Psychiatric: Comments: No anxiety or agitation Allergic/Immunologic: Comments: No tongue swelling or rash PMFSH Medical History Abnormal ultrasound of breast Age-related osteoporosis without current pathological fracture Cerebral palsy Chronic kidney disease, stage 3 unspecified Class 1 obesity with body mass index (BMI) of 30.0 to 30.9 in adult Developmental disability Diabetes type 2, uncontrolled Ductal carcinoma in situ of left breast Essential (primary) hypertension Hyperlipidemia, unspecified Hypothyroidism, unspecified Invasive ductal carcinoma of left breast skilled nursing (current) use of insulin Type 2 diabetes mellitus with diabetic nephropathy Family History Father Aneurysm Mother Cancer Paternal Grandfather Diabetes Brother No problems noted. Surgical History History of breast surgery History of liver transplant History of modified radical mastectomy of left breast (~10/07/20) History of splenectomy S/P breast lumpectomy Social History Alcohol intake: never Smoking Status: Never smoker Second Hand Smoke Exposure: No Use of substances other than those prescribed or required for medical reasons: No Advance Directives: No Advance Directives Information Provided: No service: No Current occupational status: employed Meds Allergies Allergy/AdvReac Type Severity Reaction Status Date / Time Peanut Butter Allergy Mild Rash Verified 11/22/20 12:00 Home Medications Medication Instructions Recorded Confirmed Type allopurinol 300 mg tablet 300 mg PO DAILY 08/21/20 12/10/20 History blood sugar diagnostic #10 ea 08/21/20 12/07/20 History clonidine HCl 0.3 mg tablet 0.3 mg PO DAILY 08/21/20 12/10/20 History furosemide 20 mg tablet 20 mg PO DAILY 08/21/20 12/10/20 History lancets 28 gauge #100 ea 08/21/20 12/07/20 History mycophenolate mofetil 250 mg 250 mg PO BID 08/21/20 12/10/20 History capsule omega-3 fatty acids 1,000 mg 1,000 mg PO DAILY 08/21/20 12/10/20 History capsule pediatric multivitamin 1 tab PO DAILY 08/21/20 12/10/20 History aspirin 81 mg tablet,delayed 81 mg PO DAILY 09/02/20 12/10/20 History release atorvastatin 20 mg PO DAILY 10/07/20 12/10/20 History calcium carbonate 1,000 mg PO BID 10/29/20 12/10/20 History lisinopril 5 mg tablet 5 mg PO DAILY 12/07/20 12/10/20 History tacrolimus 0.5 mg capsule 0.5 mg PO BID 12/07/20 12/10/20 History cholecalciferol (vitamin D3) 1,250 mcg PO Q14D 12/10/20 12/10/20 History dulaglutide 1.5 mg SUBCUT TH 12/10/20 12/10/20 History insulin degludec [Tresiba 20 unit SUBCUT DAILY 12/10/20 12/10/20 History FlexTouch U-100] Physical Exam Vital Signs and Narrative: Vital Signs: Last Vital Signs Temp 97.7 F 12/10/20 19:08 Pulse 97 12/10/20 19:13 Resp 16 12/10/20 19:08 BP 143/77 H 12/10/20 19:13 Pulse Ox 96 12/10/20 19:08 Body Mass Index 31.6 Const: Other: Awake, alert, no distress, ambulates independently at baseline HENMT: Other: Disconjugate gaze Mouth: Normal oral and palatal mucosa present Eyes: Other: No scleral icterus, disconjugate gaze Neck: Other: Supple, no adenopathy or thyromegaly Chest: Other: left mastectomy Resp: Other: Normal resp effort, no insp crackles or exp wheezes Cardio: Other: no murmur Rate: regular rate Heart sounds: S1 normal heart sound present and S2 normal heart sound present GI: Other: Prior abd surgery noted-well healed scare, normal bowel sounds, nontender, nondistended. Skin: Other: no rashes or lesions Neuro: Other: CN2-12 intact, sensation to light touch intact in upper and lower ext, str 4/5 and symmetric in upper and lower ext Extrem: Other: wearing compression hose, leg edema noted Psych: Other: awake, alert, no distress inteacting appropriately. Results Labs CBC and Chem 7: 12/10/20 17:14 12/10/20 17:14 Labs: Laboratory Results - last 24 hr 12/10/20 12/10/20 12/10/20 17:14 17:14 17:46 MCV 97.3 MCH 31.3 MCHC 32.2 RDW 14.5 Plt Count 358 MPV 10.8 Immature Gran % (Auto) 0.3 Neut % (Auto) 87.4 H Lymph % (Auto) 9.8 L [place] % (Auto) 2.1 Eos % (Auto) 0.0 Baso % (Auto) 0.4 Lymph # (Auto) 1.2 [place] # (Auto) 0.3 Eos # (Auto) 0.0 Baso # (Auto) 0.1 Abs Immat Gran (auto) 0.04 H Absolute Neuts (auto) 10.4 H Absolute Nucleated RBC 0.050 H Nucleated RBC % (auto) 0.4 H Anion Gap 15 Estim Creat Clear Calc 35.5 Estimated GFR 36 POC Glucose Random Glucose 401 H* Calcium 8.2 L D Magnesium 1.8 Total Bilirubin 0.4 Direct Bilirubin 0.2 AST 93 H ALT 81 H Alkaline Phosphatase 174 H Total Protein 6.4 L Albumin 3.5 Lipase 19 Stool Leukocytes, Qual NEGATIVE 12/10/20 20:03 MCV MCH MCHC RDW Plt Count MPV Immature Gran % (Auto) Neut % (Auto) Lymph % (Auto) [place] % (Auto) Eos % (Auto) Baso % (Auto) Lymph # (Auto) [place] # (Auto) Eos # (Auto) Baso # (Auto) Abs Immat Gran (auto) Absolute Neuts (auto) Absolute Nucleated RBC Nucleated RBC % (auto) Anion Gap Estim Creat Clear Calc Estimated GFR POC Glucose 276 H Random Glucose Calcium Magnesium Total Bilirubin Direct Bilirubin AST ALT Alkaline Phosphatase Total Protein Albumin Lipase Stool Leukocytes, Qual Assessment and Plan (1) Diarrhea: Status: Acute (2) Acute hypotension: Status: Acute 65 year old woman presenting with episode of diarrhea, diaphoresis and hypotension following infusion for breast cancer. Hypotension, diaphoresis Could have been vasovagal event due to diarrhea or possible allergic reaction to the chemotherapy. Will monitor on telemetry to eval for dysrhythmia. Had recent echo showing preserved LVEF. Check Troponin and trend it. Check orthostatics in AM. Hyperglycemia, DM type 2 Continue insulin and sliding scale. Tresiba is chronic insulin, will give some Lantus-5 units tonight to substitute given she was very hyperglycemic and is on dexamethasone. Holding Metformin acutely. Elevated creatinine Has hx CKD stage 3, slightly elevated over baseline. Repeat in AM after hydration. Liver transplant hx Continue anti-rejection meds. HTN Holding meds acutely given hypotension: diltaizem, clonidine, lisinopril. Hypothyroidism Continue levothyroxine at outpt dose of 100mcg daily. Breast cancer hx Takes dexamethazone after chemo-will continue for now. DVT proph SC Heparin Code status Full code. Healthcare proxy per her is her brother
[2020-12-10 21:12] LABS: COVID-19 Test Negative (Negative)
[2020-12-10] MEDS: Heparin Sodium,Porcine 5,000 UNIT/ML VIAL 5000 UNIT SUBCUT (21:46)
[2020-12-10] MEDS: 0.9 % Sodium Chloride 1,000 ML 100 ML IVCONT (21:46)
[2020-12-10] MEDS: Insulin Glargine,Hum.rec.anlog 100 UNIT/ML 10 ML VIAL SUBCUT (21:46)
[2020-12-10 22:04] VITALS: BP 127/63; PULSE 92; RESP 19; TEMP 36.5; O2SAT 94
[2020-12-11] VITALS (12 sets, daily range): BP systolic 101–156; BP diastolic 59–82; PULSE 77–108; RESP 16–20; TEMP 36.5–36.9; O2SAT 91–98
--- NOTE | 2020-12-11 04:38 | PC.NURSE ---
report given to floor, Pt to floor in stretcher, Pt denies any complaints at this time.
[2020-12-11 06:08] LABS: MANUAL DIFF FLAG NO
[2020-12-11 06:22] LABS: Basophils Percent Auto 0.1 % (0-2); Eosinophils Percent Auto 0.1 % (0-4); Hematocrit 38.7 % (37-47); Hemoglobin 12.4 g/dl (12.0-16.0); Imm Gran Abs Auto 0.14 X10*3/uL (0.00-0.03); Imm Gran Pct Auto 0.8 % (0.0-0.4); Lymphocytes Absolute Auto 1.6 X10*3/uL (1.2-4.9); Lymphocytes Percent Auto 8.8 % (20-40); Mean Corpuscular Hemoglobin 31.4 pg (27.0-33.0); Mean Platelet Volume 11.2 fL (9.4-12.3); Monocytes Absolute Auto 0.8 X10*3/uL (0.1-1.2); Monocytes Percent Auto 4.6 % (2-11); NRBC Pct Auto 0.3 /100WBC (0.0-0.2); Neutrophils Absolute Auto 15.2 X10*3/uL (2.0-8.3); Neutrophils Percent Auto 85.6 % (45-73); Platelet Count 359 X10*3/uL (160-400); Red Blood Count 3.95 X10*6/uL (4.20-5.50); Red Cell Distribution Width 14.3 % (11.0-16.0); White Blood Count 17.8 X10*3/uL (4.8-10.8)
[2020-12-11 06:40] LABS: Anion Gap 15 (12-20); Blood Urea Nitrogen 31 mg/dL (9-16); Calcium 8.4 mg/dL (8.4-10.2); Carbon Dioxide 18 mmol/L (22-29); Chloride 112 mmol/L (96-108); Creatinine Clr Calc Pharmacy 47.3; Estimated Glomerular Filt Rate 50; Glucose Random 281 mg/dL (60-115); Potassium 5.3 mmol/l (3.3-5.1); Sodium 140 mmol/L (135-145)
[2020-12-11 06:50] LABS: Troponin-I High Sensitivity 8.2 ng/L (<3.5-17.0)
[2020-12-11 08:32] LABS: Glucose, Whole Blood 234 mg/dL (60-115)
[2020-12-11 08:59] LABS: Troponin-I High Sensitivity 10.1 ng/L (<3.5-17.0)
--- NOTE | 2020-12-11 09:03 | MHC.CM.PN ---
CM met with Patient who appeared to be struggling to answer ADULT MANAGER questions ; CM attempted to reach Brothers/HCPs/Chuck & Mathew but was not able to do so. CM spoke with Roommate/Friend/Latrice. Patient lives in an apartment with Latrice and she is functionally independent. Patient has a N CM and the goal for dc is for Patient to return home with resumption of these services.CM has initiated and will follow for dc planning. JOHNNY addressed with Latrice and the original will be mailed to her and a copy has been placed on the chart.
[2020-12-11] MEDS: Lactated Ringers 1,000 ML 100 ML IVCONT ×2 (10:08→21:16)
[2020-12-11] MEDS: Atorvastatin Calcium 20 MG TABLET PO (10:09)
[2020-12-11] MEDS: dexAMETHasone 4 MG TABLET PO ×2 (10:09→21:15)
[2020-12-11] MEDS: Aspirin Enteric Coated 81 MG TABLET.DR PO (10:09)
[2020-12-11] MEDS: mycophenolate mofetiL 250 MG CAPSULE PO ×2 (10:09→21:15)
[2020-12-11] MEDS: Levothyroxine Sodium 100 MCG TABLET PO (10:09)
[2020-12-11] MEDS: Insulin Lispro 100 UNIT/ML 3 ML VIAL SUBCUT ×4 (10:10→21:16)
[2020-12-11] MEDS: Tacrolimus 0.5 MG CAPSULE PO ×2 (10:12→21:15)
--- NOTE | 2020-12-11 10:25 | HO.PM.IMPN ---
Subjective Subjective Date of Service: 12/11/20 Interval History: seen and examined feels well and wants go home denies diarrhea denies dizziness ROS General - no fevers or chills Cardiovascular - no chest pain Respiratory - no shortness of breath or cough Abdominal- no abdominal pain, nausea, vomiting, diarrhea Physical Exam Vital Signs: Vital Signs: Last Vital Signs Temp 97.7 F 12/11/20 08:00 Pulse 96 12/11/20 08:00 Resp 20 12/11/20 08:00 BP 104/61 12/11/20 08:00 Pulse Ox 96 12/11/20 08:00 Body Mass Index 31.6 Const: Other: General - no acute distress, appears comfortable Cardiovascular - regular rate and rhythm, S1-S2 Lungs - normal respiratory effort, clear to auscultation bilaterally, no wheezing Abdomen - soft, nontender, no rebound or guarding Extremities - no edema bilaterally Neuro - awake and alert, no focal deficits Objective Data Current Medications Generic Name Dose Route Start Last Admin Trade Name Freq PRN Reason Stop Dose Admin Aspirin 81 mg 12/11/20 09:00 12/11/20 10:09 Aspirin Enteric Coated 81 Mg Tablet. PO 81 mg DAILY TAMMY Administration Atorvastatin Calcium 20 mg 12/11/20 09:00 12/11/20 10:09 Atorvastatin Calcium 20 Mg Tablet PO 20 mg DAILY TAMMY Administration Dexamethasone 4 mg 12/11/20 09:00 12/11/20 10:09 Dexamethasone 4 Mg Tablet PO 4 mg BID TAMMY Administration Heparin Sodium (Porcine) 5,000 unit 12/10/20 21:20 12/11/20 05:26 Heparin Sodium,Porcine 5,000 Unit/Ml Vial SUBCUT Not Given Q8H TAMMY Sodium Chloride 1,000 mls @ 100 mls/hr 12/10/20 21:20 12/11/20 10:11 Ns IVCONT Not Given .Q10H TAMMY Lactated Ringer's 1,000 mls @ 100 mls/hr 12/11/20 09:00 12/11/20 10:08 Lr IVCONT 100 mls/hr .Q10H TAMMY Administration Insulin Human Lispro 0 unit 12/11/20 07:30 12/11/20 10:10 Insulin Lispro 100 Unit/Ml 3 Ml Vial SUBCUT 1 unit QIDACHS TAMMY Administration Protocol Levothyroxine Sodium 100 mcg 12/11/20 09:00 12/11/20 10:09 Levothyroxine Sodium 100 Mcg Tablet PO 100 mcg DAILY TAMMY Administration Mycophenolate Mofetil 250 mg 12/11/20 09:00 12/11/20 10:09 Mycophenolate Mofetil 250 Mg Capsule PO 250 mg BID TAMMY Administration Pharmacy Consult 1 each 12/10/20 19:49 Consult Rx Perform Med Rec MISCELLANE ONCE PRN Consult order Tacrolimus 0.5 mg 12/11/20 09:00 12/11/20 10:12 Tacrolimus 0.5 Mg Capsule PO 0.5 mg BID TAMMY Administration Labs CBC & Chem 7: 12/11/20 05:20 12/11/20 05:20 Microbiology Microbiology Results: Microbiology 12/10/20 17:46 Stool Stool Culture - Preliminary Culture in progress. Assessment and Plan (1) Diarrhea: Status: Acute (2) Dehydration: Status: Acute Assessment and Plan: This is a 65 yo F with a PMH of breast Ca who is admitted for dehdyration / diarrhea / hypotension following her 1st infusion. 1. Hypotension / diaphoresis suspected vasovagal episode check orthostatics continue IVF, change to LR improved, continue holding antihypertensives 2. Diarrhea resolved question if related to infusion check stool studies if recurrent 3. MARIA ESTHER on CKD stage 2/3, POA likely 2/2 to diarrhea resolved with IVF 4. Hyperchloremic metabolic acidosis switch fluids to LR 5. Uncontrolled DM sliding scale + lantus POC QIDAC 6. Breast ca - s/p resection and first infusion on 12/10/2020 decadron 5mg bid x 2 days per oncology notes 7. hypothyroid synthroid 8. Hx of Liver transplant continue anti-rejection meds Full Code DVT pptx, subcut. heparin
--- NOTE | 2020-12-11 13:42 | MHC.CM.PN ---
Patient has switched from OBSERVATION to INPATIENT. IMM addressed with Roommate/Friend/Latrice and original will be mailed certified letter to Latrice and a copy has been placed on the chart.
[2020-12-11 16:56] LABS: Glucose, Whole Blood 342 mg/dL (60-115)
[2020-12-11 20:50] LABS: Glucose, Whole Blood 401 mg/dL (60-115)
[2020-12-11] MEDS: Heparin Sodium,Porcine 5,000 UNIT/ML VIAL 5000 UNIT SUBCUT (21:15)
[2020-12-11] MEDS: Insulin Glargine,Hum.rec.anlog 100 UNIT/ML 10 ML VIAL 12 UNIT SUBCUT (21:16)
[2020-12-12] VITALS (7 sets, daily range): BP systolic 119–172; BP diastolic 57–99; PULSE 97–111; RESP 18–32; TEMP 36.5–36.9; O2SAT 89–97
--- NOTE | 2020-12-12 | XR_ITS ---
EXAMINATION: XR CHEST CLINICAL INFORMATION: hypoxia, increased work of breathing COMPARISON: 10/07/2020 TECHNIQUE: Frontal view of the chest was obtained. FINDINGS: Right IJ Port-A-Cath terminates in the SVC. Cardiac leads overlie the chest. There is a small to moderate size right pleural effusion with associated right lower lobe opacities, likely comminution of atelectasis and airspace disease. Additional linear opacities in the left midlung and left lung base likely correspond to atelectasis. Cardiac and meniscal contours are within normal limits and not significantly changed. No left-sided effusion. No pneumothoraces. Bones are osteopenic. No acute osseous findings. XR/XR chest 1V IMPRESSION: Small to moderate size right pleural effusion is increased in size from prior with associated right basilar and right midlung opacities, likely corresponding to atelectasis and/or airspace disease. Mild atelectasis in the left lung base and midlung.
[2020-12-12] MEDS: Heparin Sodium,Porcine 5,000 UNIT/ML VIAL 5000 UNIT SUBCUT ×3 (05:15→20:55)
[2020-12-12] MEDS: Furosemide 20 MG/2 ML VIAL IVPUSH (05:15)
--- NOTE | 2020-12-12 05:34 | PM.EVENT ---
Event Note Date of Service: 12/12/20 Event Note: Asked by nursing staff to assess increased oxygen requirements and increased work of breathing. Patient admitted yesterday after a presumed advers reaction to chemotherapy that caused diarrhea and hypotension. Was being hydrated with IVF and now appears edematous and has increased work of breathing. She states no chest pain and is afebrile. Did have a wet cough earlier and feels better with the increased oxygen. On exam vitals show hypertension and mild tachycardia. Her chest exam shows normal lung expansion but increased work of breathing. Breath sounds are diminished at both lung bases. No exp wheezing heard. Plan: Titrate oxygen to maintain sats and will get portable CXR stat. Also added BNP onto AM labs and will draw THIAGO. Jones inserted and Lasix 20mg IV ordered.
[2020-12-12 06:43] LABS: Hematocrit 41.9 % (37-47); Hemoglobin 13.6 g/dl (12.0-16.0); Mean Corpuscular HGB Conc 32.5 g/dl (31.0-35.0); Mean Corpuscular Volume 98.6 fL (80-98); Mean Platelet Volume 11.4 fL (9.4-12.3); Platelet Count 355 X10*3/uL (160-400); Red Blood Count 4.25 X10*6/uL (4.20-5.50); Red Cell Distribution Width 14.6 % (11.0-16.0)
[2020-12-12 07:15] LABS: B Type Natriuretic Peptide 919 pg/mL (<100)
--- NOTE | 2020-12-12 07:27 | PC.NURSE ---
Pt. noted to have increased SOB and WOB. Satting 91% on 3L via N/C. Pt. appearing more edematous in hands and feet, L>R. Pt on LR @ 100 ml/hr. Lung sounds coarse in bases. RT called and at bedside to assess. MD made aware and also at bedside. Order for 20mg IV lasix, CXR, and livingston insertion. IVF stopped. Livingston placed and lasix administered with 800 mls of clear urine drained. MD updated. Report given to daysyvroseft.
[2020-12-12 07:30] LABS: Glucose, Whole Blood 211 mg/dL (60-115)
[2020-12-12 07:36] LABS: Calcium 8.9 mg/dL (8.4-10.2)
[2020-12-12 07:37] LABS: Anion Gap 17 (12-20); Blood Urea Nitrogen 36 mg/dL (9-16); Carbon Dioxide 19 mmol/L (22-29); Chloride 108 mmol/L (96-108); Creatinine Clr Calc Pharmacy 54.3; Estimated Glomerular Filt Rate 59; Glucose Random 217 mg/dL (60-115); Potassium 5.2 mmol/l (3.3-5.1); Sodium 139 mmol/L (135-145)
[2020-12-12 08:54] LABS: White Blood Count 51.9 X10*3/uL (4.8-10.8)
[2020-12-12] MEDS: mycophenolate mofetiL 250 MG CAPSULE PO ×2 (09:40→20:55)
[2020-12-12] MEDS: Aspirin Enteric Coated 81 MG TABLET.DR PO (09:40)
[2020-12-12] MEDS: Atorvastatin Calcium 20 MG TABLET PO (09:40)
[2020-12-12] MEDS: Levothyroxine Sodium 100 MCG TABLET PO (09:40)
[2020-12-12] MEDS: Insulin Lispro 100 UNIT/ML 3 ML VIAL SUBCUT ×4 (09:41→20:56)
[2020-12-12] MEDS: dexAMETHasone 4 MG TABLET PO ×2 (09:41→20:55)
[2020-12-12] MEDS: dilTIAZem HCL CD 180 MG CAP.ER.24H PO (09:41)
[2020-12-12] MEDS: Tacrolimus 0.5 MG CAPSULE PO ×2 (09:43→20:55)
--- NOTE | 2020-12-12 10:15 | HO.PM.IMPN ---
Subjective Subjective Date of Service: 12/12/20 Interval History: seen and examined overnight events reviewed this AM, feeling good and breathing easy denies sob or cough ROS General - no fevers or chills Cardiovascular - no chest pain Respiratory - no shortness of breath or cough Abdominal- no abdominal pain, nausea, vomiting, diarrhea Physical Exam Vital Signs: Vital Signs: Last Vital Signs Temp 97.8 F 12/12/20 07:17 Pulse 101 H 12/12/20 09:41 Resp 18 12/12/20 07:17 BP 141/78 H 12/12/20 09:41 Pulse Ox 93 12/12/20 07:17 Body Mass Index 31.6 Const: Other: General - no acute distress, appears comfortable Cardiovascular - regular rate and rhythm, S1-S2 Lungs - no distress, mildly dim sounds on R > L; saturation >90 on RA this morning Abdomen - soft, nontender, no rebound or guarding Extremities - no edema bilaterally Neuro - awake and alert, no focal deficits Objective Data Current Medications Generic Name Dose Route Start Last Admin Trade Name Braedenq PRN Reason Stop Dose Admin Acetaminophen 650 mg 12/11/20 21:00 Acetaminophen 325 Mg Tablet PO Q6H PRN mild pain, headache, temp Aspirin 81 mg 12/11/20 09:00 12/12/20 09:40 Aspirin Enteric Coated 81 Mg Tablet.Dr PO 81 mg DAILY TAMMY Administration Atorvastatin Calcium 20 mg 12/11/20 09:00 12/12/20 09:40 Atorvastatin Calcium 20 Mg Tablet PO 20 mg DAILY TAMMY Administration Dexamethasone 4 mg 12/11/20 09:00 12/12/20 09:41 Dexamethasone 4 Mg Tablet PO 4 mg BID TAMMY Administration Diltiazem HCl 180 mg 12/12/20 07:00 12/12/20 09:41 Diltiazem Hcl Cd 180 Mg Cap.Er.24h PO 180 mg DAILY TAMMY Administration Protocol Heparin Sodium (Porcine) 5,000 unit 12/10/20 21:20 12/12/20 05:15 Heparin Sodium,Porcine 5,000 Unit/Ml Vial SUBCUT 5,000 unit Q8H TAMMY Administration Insulin Glargine 12 unit 12/11/20 21:00 12/11/20 21:16 Insulin Glargine,Hum.Rec.Anlog 100 Unit/Ml 10 Ml Vial SUBCUT 12 unit BEDTIME TAMMY Administration Insulin Human Lispro 0 unit 12/11/20 07:30 12/12/20 09:41 Insulin Lispro 100 Unit/Ml 3 Ml Vial SUBCUT 2 unit QIDACHS TAMMY Administration Protocol Levothyroxine Sodium 100 mcg 12/11/20 09:00 12/12/20 09:40 Levothyroxine Sodium 100 Mcg Tablet PO 100 mcg DAILY TAMMY Administration Lisinopril 5 mg 12/12/20 09:00 12/12/20 09:40 Lisinopril 5 Mg Tablet PO 5 mg DAILY TAMMY Administration Protocol Mycophenolate Mofetil 250 mg 12/11/20 09:00 12/12/20 09:40 Mycophenolate Mofetil 250 Mg Capsule PO 250 mg BID TAMMY Administration Pharmacy Consult 1 each 12/10/20 19:49 Consult Rx Perform Med Rec MISCELLANE ONCE PRN Consult order Tacrolimus 0.5 mg 12/11/20 09:00 12/12/20 09:43 Tacrolimus 0.5 Mg Capsule PO 0.5 mg BID TAMMY Administration Labs CBC & Chem 7: 12/12/20 05:53 12/12/20 05:53 Microbiology Microbiology Results: Microbiology 12/10/20 17:46 Stool Stool Culture - Preliminary Culture in progress. Assessment and Plan (1) Diarrhea: Status: Acute (2) Dehydration: Status: Acute Assessment and Plan: This is a 65 yo F with a PMH of breast Ca who is admitted for dehdyration / diarrhea / hypotension following her 1st infusion. 1. Acute Respiratory failure with hypoxia due to fluid overload 1.5L output with IV lasix early this AM was on ventimask, now tolerating RA this AM observe for an additional 24 hours 2. Leukocytosis not due to sepsis/infection -- received Neulasta post chemo Sunday monitor for signs of infection 2. Hypotension resolved IVF stopped for fluid overload 3. Diarrhea resolved question if related to chemo infusion check stool studies if recurrent 4. MARIA ESTHER on CKD stage 2/3, POA likely 2/2 to diarrhea resolved with IVF 5. Uncontrolled DM sliding scale + lantus POC QIDAC 6. Breast ca - s/p resection and first infusion on 12/10/2020 decadron 5mg bid x 2 days per oncology notes -- stop tomorrow 7. hypothyroid synthroid 8. Hx of Liver transplant continue anti-rejection meds Full Code DVT pptx, subcut. heparin dispo: anticipate home tomorrow, monitor for respiratory status for 24 hours
[2020-12-12 11:28] LABS: Glucose, Whole Blood 294 mg/dL (60-115)
--- NOTE | 2020-12-12 12:04 | PC.NURSE ---
Kelseyta onpro removed from right upper arm on 12/11/20 at 1600 by RN.
[2020-12-12 16:16] LABS: Glucose, Whole Blood 292 mg/dL (60-115)
[2020-12-12 19:43] LABS: Glucose, Whole Blood 268 mg/dL (60-115)
[2020-12-12 20:47] LABS: Glucose, Whole Blood 261 mg/dL (60-115)
[2020-12-12] MEDS: Insulin Glargine,Hum.rec.anlog 100 UNIT/ML 10 ML VIAL 12 UNIT SUBCUT (20:56)
[2020-12-13] VITALS (7 sets, daily range): BP systolic 117–152; BP diastolic 58–78; PULSE 89–100; RESP 18–20; TEMP 36.6–37.2; O2SAT 91–96; BMI 31.6
--- NOTE | 2020-12-13 | XR_ITS ---
EXAMINATION: XR CHEST CLINICAL INFORMATION: Hypoxia. Follow-up. COMPARISON: Previous chest x-rays most recent 12/12/2020 TECHNIQUE: Frontal view of the chest was obtained. FINDINGS: The cardiac and mediastinal contours are stable. There is a right jugular port with tip projecting over the SVC. There is a small to moderate right pleural effusion. This does not appear appreciably changed from yesterday's exam. There may be slight interval improvement in right-sided airspace disease. There is increased density in the left lateral midlung that is unchanged in between the left posterior seventh and eighth ribs. This is irregular in shape questionable for pleural calcification. The left lung is otherwise clear. There is no pleural effusion. There are degenerative changes of the spine and shoulders. XR/XR chest 1V IMPRESSION: Stable small to moderate right pleural effusion. Increasing right-sided airspace disease from yesterday's exam. Differential would include pulmonary edema and pneumonia.
[2020-12-13 06:47] LABS: Hemoglobin 12.8 g/dl (12.0-16.0); Mean Corpuscular HGB Conc 32.8 g/dl (31.0-35.0); Mean Corpuscular Hemoglobin 31.4 pg (27.0-33.0); Mean Corpuscular Volume 95.6 fL (80-98); Mean Platelet Volume 11.8 fL (9.4-12.3); NRBC Pct Auto 0.1 /100WBC (0.0-0.2); Platelet Count 334 X10*3/uL (160-400); Red Blood Count 4.08 X10*6/uL (4.20-5.50); Red Cell Distribution Width 14.5 % (11.0-16.0)
[2020-12-13] MEDS: Heparin Sodium,Porcine 5,000 UNIT/ML VIAL 5000 UNIT SUBCUT (06:59)
[2020-12-13 07:01] LABS: Anion Gap 17 (12-20); Blood Urea Nitrogen 32 mg/dL (9-16); Calcium 8.8 mg/dL (8.4-10.2); Carbon Dioxide 19 mmol/L (22-29); Chloride 106 mmol/L (96-108); Creatinine Clr Calc Pharmacy 67.8; Estimated Glomerular Filt Rate > 60; Glucose Random 192 mg/dL (60-115); Potassium 4.8 mmol/l (3.3-5.1); Sodium 137 mmol/L (135-145)
[2020-12-13 07:41] LABS: White Blood Count 52.7 X10*3/uL (4.8-10.8)
[2020-12-13 07:42] LABS: Glucose, Whole Blood 215 mg/dL (60-115)
[2020-12-13 07:47] LABS: Glucose, Whole Blood 231 mg/dL (60-115)
[2020-12-13] MEDS: Atorvastatin Calcium 20 MG TABLET PO (07:51)
[2020-12-13] MEDS: Insulin Lispro 100 UNIT/ML 3 ML VIAL SUBCUT ×2 (07:51→11:39)
[2020-12-13] MEDS: Levothyroxine Sodium 100 MCG TABLET PO (07:52)
[2020-12-13] MEDS: Aspirin Enteric Coated 81 MG TABLET.DR PO (07:52)
[2020-12-13] MEDS: Tacrolimus 0.5 MG CAPSULE PO (07:52)
[2020-12-13] MEDS: dexAMETHasone 4 MG TABLET PO (07:52)
[2020-12-13] MEDS: dilTIAZem HCL CD 180 MG CAP.ER.24H PO (07:52)
[2020-12-13] MEDS: mycophenolate mofetiL 250 MG CAPSULE PO (07:52)
[2020-12-13 11:05] LABS: Glucose, Whole Blood 239 mg/dL (60-115)
--- NOTE | 2020-12-13 11:26 | MHC.CM.PN ---
Patient's WBC count elevated to 52.7, work up in progress. Discharge plan is home with friend, no services. [facility] is involved with patient r/t devlopemental delay. Patient's brother Chuck will provide transportation. CM will continue to follow patient for discharge needs.
--- NOTE | 2020-12-13 14:29 | PM.DS ---
DS: Providers Provider Date of Service: 12/13/20 Date of admission: 12/11/20 11:20 Primary care physician: Unknown Physician DS: Diagnosis Discharge Diagnosis (1) Diarrhea: Status: Acute (2) Dehydration: Status: Acute (3) Acute hypotension: Status: Acute (4) MARIA ESTHER (acute kidney injury): Status: Acute DS: Medications Discharge Medications Home Medications: Home Medications Medication Instructions Recorded Confirmed allopurinol 300 mg tablet 300 mg PO DAILY 08/21/20 12/10/20 blood sugar diagnostic #10 ea 08/21/20 12/07/20 furosemide 20 mg tablet 20 mg PO DAILY 08/21/20 12/10/20 lancets 28 gauge #100 ea 08/21/20 12/07/20 mycophenolate mofetil 250 mg 250 mg PO BID 08/21/20 12/10/20 capsule omega-3 fatty acids 1,000 mg 1,000 mg PO DAILY 08/21/20 12/10/20 capsule pediatric multivitamin 1 tab PO DAILY 08/21/20 12/10/20 aspirin 81 mg tablet,delayed 81 mg PO DAILY 09/02/20 12/10/20 release atorvastatin 20 mg PO DAILY 10/07/20 12/10/20 calcium carbonate 1,000 mg PO BID 10/29/20 12/10/20 lisinopril 5 mg tablet 5 mg PO DAILY 12/07/20 12/10/20 tacrolimus 0.5 mg capsule 0.5 mg PO BID 12/07/20 12/10/20 Tresiba FlexTouch U-100 20 unit SUBCUT DAILY 12/10/20 12/10/20 cholecalciferol (vitamin D3) 1,250 mcg PO Q14D 12/10/20 12/10/20 dulaglutide 1.5 mg SUBCUT TH 12/10/20 12/10/20 Previous Rx's Medication Instructions Recorded diltiazem HCl 180 mg 180 mg PO DAILY 90 Days #90 cap 09/02/20 capsule,extended release 24 hr levothyroxine 100 mcg tablet 100 mcg PO DAILY 90 Days #90 tab 09/02/20 metformin 500 mg tablet 500 mg PO BID #90 tab 09/02/20 pen needle, diabetic 31 gauge x #100 ea 09/02/20 3/16 repaglinide 0.5 mg tablet 0.5 mg PO TID 90 Days #270 tab 09/02/20 dexamethasone [Decadron] 4 mg PO BID #100 tab 12/09/20 ondansetron HCl [Zofran] 8 mg PO Q8H PRN #50 tab 12/09/20 DS: Summary Hospital Course Hospital Course: Patient was admitted for hypotension and acute kidney injury in the setting of diarrhea and recent chemotherapy. Patient was given IV fluids and her blood pressure meds were held. Her creatinine went back to normal and diarrhea resolved, white blood cells were negative in the stool and stool culture was negative, C diff was not performed. Course was complicated by acute hypoxic respiratory failure. This was transient and is now completely resolved consistent with aspiration pneumonitis, as patient has completely recovered and no signs of infection (leukocytosis is due to GCSF stimulant) will hold off on antibiotics. her bp meds have been restarted except clonidine. bp is back to normal. Time Spent with Patient Time attestation: Total time spent providing and/or coordinating discharge services: Discharge coordination time: Greater than 30 minutes Physical Exam Vital Signs: Vital Signs: Last Vital Signs Temp 98.5 F 12/13/20 11:28 Pulse 89 12/13/20 11:28 Resp 18 12/13/20 11:28 BP 140/78 H 12/13/20 11:28 Pulse Ox 94 12/13/20 11:28 Body Mass Index 31.6 General: AO X 3, no acute distress Resp: CTA bilateral CVS: S1,S2,RRR GI: soft, non tender, non distended Neuro: motor grossly intact Psych: appropriate affect DS: Data Data Completed and Pending Completed studies during hospitalization [Text1]: Procedures Control Bleeding in Chest Wall, Open Approach (10/07/20) Extirpation of Matter from Left Trunk Muscle, Open Approach (10/07/20) Resection of Left Axillary Lymphatic, Open Approach (10/07/20) Resection of Left Breast, Open Approach (10/07/20) Transfusion of Nonautologous Red Blood Cells into Peripheral Vein, Percutaneous Approach (10/07/20) Labs on day of discharge: Laboratory Tests 12/10/20 12/10/20 12/10/20 17:14 17:14 17:46 WBC 11.9 H RBC 4.02 L Hgb 12.6 Hct 39.1 MCV 97.3 MCH 31.3 MCHC 32.2 RDW 14.5 Plt Count 358 MPV 10.8 Immature Gran % (Auto) 0.3 Neut % (Auto) 87.4 H Lymph % (Auto) 9.8 L [place] % (Auto) 2.1 Eos % (Auto) 0.0 Baso % (Auto) 0.4 Lymph # (Auto) 1.2 [place] # (Auto) 0.3 Eos # (Auto) 0.0 Baso # (Auto) 0.1 Abs Immat Gran (auto) 0.04 H Absolute Neuts (auto) 10.4 H Absolute Nucleated RBC 0.050 H Nucleated RBC % (auto) 0.4 H Sodium 137 Potassium 4.8 Chloride 106 Carbon Dioxide 21 L Anion Gap 15 BUN 44 H Creatinine 1.45 H Estim Creat Clear Calc 35.5 Estimated GFR 36 POC Glucose Random Glucose 401 H* Calcium 8.2 L D Magnesium 1.8 Total Bilirubin 0.4 Direct Bilirubin 0.2 AST 93 H ALT 81 H Alkaline Phosphatase 174 H Troponin I High Sens B-Natriuretic Peptide Total Protein 6.4 L Albumin 3.5 Lipase 19 Stool Leukocytes, Qual NEGATIVE COVID-19 (IDRIS) [employer] 12/10/20 12/10/20 12/11/20 20:03 20:34 05:20 WBC RBC Hgb Hct MCV MCH MCHC RDW Plt Count MPV Immature Gran % (Auto) Neut % (Auto) Lymph % (Auto) [place] % (Auto) Eos % (Auto) Baso % (Auto) Lymph # (Auto) [place] # (Auto) Eos # (Auto) Baso # (Auto) Abs Immat Gran (auto) Absolute Neuts (auto) Absolute Nucleated RBC Nucleated RBC % (auto) Sodium Potassium Chloride Carbon Dioxide Anion Gap BUN Creatinine Estim Creat Clear Calc Estimated GFR POC Glucose 276 H Random Glucose Calcium Magnesium Total Bilirubin Direct Bilirubin AST ALT Alkaline Phosphatase Troponin I High Sens 8.2 B-Natriuretic Peptide Total Protein Albumin Lipase Stool Leukocytes, Qual COVID-19 (IDRIS) Negative [employer] See Note 12/11/20 12/11/20 12/11/20 05:20 05:20 08:04 WBC 17.8 H RBC 3.95 L Hgb 12.4 Hct 38.7 MCV 98.0 MCH 31.4 MCHC 32.0 RDW 14.3 Plt Count 359 MPV 11.2 Immature Gran % (Auto) 0.8 H Neut % (Auto) 85.6 H Lymph % (Auto) 8.8 L [place] % (Auto) 4.6 Eos % (Auto) 0.1 Baso % (Auto) 0.1 Lymph # (Auto) 1.6 [place] # (Auto) 0.8 Eos # (Auto) 0.0 Baso # (Auto) 0.0 Abs Immat Gran (auto) 0.14 H Absolute Neuts (auto) 15.2 H Absolute Nucleated RBC 0.050 H Nucleated RBC % (auto) 0.3 H Sodium 140 Potassium 5.3 H Chloride 112 H Carbon Dioxide 18 L Anion Gap 15 BUN 31 H Creatinine 1.09 Estim Creat Clear Calc 47.3 Estimated GFR 50 POC Glucose Random Glucose 281 H Calcium 8.4 Magnesium Total Bilirubin Direct Bilirubin AST ALT Alkaline Phosphatase Troponin I High Sens 10.1 B-Natriuretic Peptide Total Protein Albumin Lipase Stool Leukocytes, Qual COVID-19 (IDRIS) COVID-19 Info 12/11/20 12/11/20 12/11/20 08:28 11:14 16:39 WBC RBC Hgb Hct MCV MCH MCHC RDW Plt Count MPV Immature Gran % (Auto) Neut % (Auto) Lymph % (Auto) [place] % (Auto) Eos % (Auto) Baso % (Auto) Lymph # (Auto) [place] # (Auto) Eos # (Auto) Baso # (Auto) Abs Immat Gran (auto) Absolute Neuts (auto) Absolute Nucleated RBC Nucleated RBC % (auto) Sodium Potassium Chloride Carbon Dioxide Anion Gap BUN Creatinine Estim Creat Clear Calc Estimated GFR POC Glucose 234 H 231 H 342 H Random Glucose Calcium Magnesium Total Bilirubin Direct Bilirubin AST ALT Alkaline Phosphatase Troponin I High Sens B-Natriuretic Peptide Total Protein Albumin Lipase Stool Leukocytes, Qual COVID-19 (IDRIS) COVID-19 Info 12/11/20 12/12/20 12/12/20 20:45 05:53 05:53 WBC 51.9 H* RBC 4.25 Hgb 13.6 Hct 41.9 MCV 98.6 H MCH 32.0 MCHC 32.5 RDW 14.6 Plt Count 355 MPV 11.4 Immature Gran % (Auto) Neut % (Auto) Lymph % (Auto) [place] % (Auto) Eos % (Auto) Baso % (Auto) Lymph # (Auto) [place] # (Auto) Eos # (Auto) Baso # (Auto) Abs Immat Gran (auto) Absolute Neuts (auto) Absolute Nucleated RBC 0.020 H Nucleated RBC % (auto) 0.0 Sodium 139 Potassium 5.2 H Chloride 108 Carbon Dioxide 19 L Anion Gap 17 BUN 36 H Creatinine 0.95 Estim Creat Clear Calc 54.3 Estimated GFR 59 POC Glucose 401 H* Random Glucose 217 H Calcium 8.9 Magnesium Total Bilirubin Direct Bilirubin AST ALT Alkaline Phosphatase Troponin I High Sens B-Natriuretic Peptide Total Protein Albumin Lipase Stool Leukocytes, Qual COVID-19 (IDRIS) [employer] 12/12/20 12/12/20 12/12/20 05:53 07:16 10:58 WBC RBC Hgb Hct MCV MCH MCHC RDW Plt Count MPV Immature Gran % (Auto) Neut % (Auto) Lymph % (Auto) [place] % (Auto) Eos % (Auto) Baso % (Auto) Lymph # (Auto) [place] # (Auto) Eos # (Auto) Baso # (Auto) Abs Immat Gran (auto) Absolute Neuts (auto) Absolute Nucleated RBC Nucleated RBC % (auto) Sodium Potassium Chloride Carbon Dioxide Anion Gap BUN Creatinine Estim Creat Clear Calc Estimated GFR POC Glucose 211 H 294 H Random Glucose Calcium Magnesium Total Bilirubin Direct Bilirubin AST ALT Alkaline Phosphatase Troponin I High Sens B-Natriuretic Peptide 919 H Total Protein Albumin Lipase Stool Leukocytes, Qual COVID-19 (IDRIS) [employer] 12/12/20 12/12/20 12/12/20 16:12 19:40 20:44 WBC RBC Hgb Hct MCV MCH MCHC RDW Plt Count MPV Immature Gran % (Auto) Neut % (Auto) Lymph % (Auto) [place] % (Auto) Eos % (Auto) Baso % (Auto) Lymph # (Auto) [place] # (Auto) Eos # (Auto) Baso # (Auto) Abs Immat Gran (auto) Absolute Neuts (auto) Absolute Nucleated RBC Nucleated RBC % (auto) Sodium Potassium Chloride Carbon Dioxide Anion Gap BUN Creatinine Estim Creat Clear Calc Estimated GFR POC Glucose 292 H 268 H 261 H Random Glucose Calcium Magnesium Total Bilirubin Direct Bilirubin AST ALT Alkaline Phosphatase Troponin I High Sens B-Natriuretic Peptide Total Protein Albumin Lipase Stool Leukocytes, Qual COVID-19 (IDRIS) [employer] 12/13/20 12/13/20 12/13/20 05:21 05:21 07:11 WBC 52.7 H* RBC 4.08 L Hgb 12.8 Hct 39.0 MCV 95.6 MCH 31.4 MCHC 32.8 RDW 14.5 Plt Count 334 MPV 11.8 Immature Gran % (Auto) Neut % (Auto) Lymph % (Auto) [place] % (Auto) Eos % (Auto) Baso % (Auto) Lymph # (Auto) [place] # (Auto) Eos # (Auto) Baso # (Auto) Abs Immat Gran (auto) Absolute Neuts (auto) Absolute Nucleated RBC 0.060 H Nucleated RBC % (auto) 0.1 Sodium 137 Potassium 4.8 Chloride 106 Carbon Dioxide 19 L Anion Gap 17 BUN 32 H Creatinine 0.76 Estim Creat Clear Calc 67.8 Estimated GFR > 60 POC Glucose 215 H Random Glucose 192 H Calcium 8.8 Magnesium Total Bilirubin Direct Bilirubin AST ALT Alkaline Phosphatase Troponin I High Sens B-Natriuretic Peptide Total Protein Albumin Lipase Stool Leukocytes, Qual COVID-19 (IDRIS) [employer] 12/13/20 11:00 WBC RBC Hgb Hct MCV MCH MCHC RDW Plt Count MPV Immature Gran % (Auto) Neut % (Auto) Lymph % (Auto) [place] % (Auto) Eos % (Auto) Baso % (Auto) Lymph # (Auto) [place] # (Auto) Eos # (Auto) Baso # (Auto) Abs Immat Gran (auto) Absolute Neuts (auto) Absolute Nucleated RBC Nucleated RBC % (auto) Sodium Potassium Chloride Carbon Dioxide Anion Gap BUN Creatinine Estim Creat Clear Calc Estimated GFR POC Glucose 239 H Random Glucose Calcium Magnesium Total Bilirubin Direct Bilirubin AST ALT Alkaline Phosphatase Troponin I High Sens B-Natriuretic Peptide Total Protein Albumin Lipase Stool Leukocytes, Qual COVID-19 (IDRIS) COVID-19 [employer] Discharge Plan Discharge Patient Disposition: Home, Self-Care Referrals: Physician,Unknown [Primary Care Provider] - Discharge Medications: Continued calcium carbonate 500 mg calcium (1,250 mg) tablet,chewable 1,000 mg PO BID RF: 0 ondansetron HCl [Zofran] 4 mg Tablet 8 mg PO Q8H PRN (Reason: Nausea And Vomiting) Qty: 50 RF: 4 dexamethasone [Decadron] 4 mg Tablet 4 mg PO BID Qty: 100 RF: 4 atorvastatin 20 mg tablet 20 mg PO DAILY RF: 0 Tresiba FlexTouch U-100 100 unit/mL (3 mL) Insulin Pen 20 unit SUBCUT DAILY RF: 0 cholecalciferol (vitamin D3) 1,250 mcg (50,000 unit) capsule 1,250 mcg PO Q14D RF: 0 dulaglutide 1.5 mg/0.5 mL pen injector 1.5 mg subcut TH RF: 0 aspirin [Adult Aspirin Regimen] 81 mg tablet,delayed release (DR/EC) 81 mg PO DAILY RF: 0 metformin 500 mg tablet 500 mg PO BID Qty: 90 RF: 3 repaglinide 0.5 mg tablet 0.5 mg PO TID 90 Days Qty: 270 RF: 3 (DME) pen needle, diabetic 31 gauge x 3/16 needle See Rx Instructions ea subcut DAILY Qty: 100 RF: 3 levothyroxine 100 mcg tablet 100 mcg PO DAILY 90 Days Qty: 90 RF: 3 diltiazem HCl 180 mg capsule,extended release 24hr 180 mg PO DAILY 90 Days Qty: 90 RF: 3 mycophenolate mofetil 250 mg capsule 250 mg PO BID RF: 0 allopurinol 300 mg tablet 300 mg PO DAILY RF: 0 (DME) blood sugar diagnostic Strip See Rx Instructions ea Not Applicable TID Qty: 10 RF: 0 furosemide 20 mg tablet 20 mg PO DAILY RF: 0 (DME) lancets 28 gauge misc See Rx Instructions ea topical TID Qty: 100 RF: 0 omega-3 fatty acids [Fish Oil Concentrate] 1,000 mg capsule 1,000 mg PO DAILY RF: 0 Flintstones Multivitamin Tablet,Chewable 1 tab PO DAILY RF: 0 tacrolimus 0.5 mg capsule 0.5 mg PO BID RF: 0 lisinopril 5 mg tablet 5 mg PO DAILY RF: 0 Discontinued clonidine HCl 0.3 mg tablet 0.3 mg PO DAILY RF: 0 Discharge Orders: Discharge Order (Routine); Ordered 12/13/20 Ordered By: Mark Medina Activity on Discharge: As tolerated Visit Report Forms: Patient Portal Discharge page Care Plan Goals: avoid hypotension Health Concerns: hypotennsion, diarrhea Plan of Treatment: stop lconidine for now, monitor sytmptoms, follow up with oncology
--- NOTE | 2020-12-13 14:37 | MHC.CM.PN ---
Patient will be discharged home today, brother Chuck will provide transport.
[2020-12-13 16:24] LABS: Glucose, Whole Blood 275 mg/dL (60-115)
== END 2020-12-13 17:18 | disposition home or self-care (01) | DRG 314 ==
LOC: HO.ED 20:25 → HO.EDOVER 21:39 → HO.IMC 12-11 03:12
PROVIDERS: Family Medicine; Nurse Practitioner Acute Care; Admitting Provider Internal Medicine; Emergency Provider Emergency Medicine; Visit Provider Internal Medicine
DX: I95.9 Hypotension, unspecified (principal); J96.01 Acute respiratory failure with hypoxia; J69.0 Pneumonitis due to inhalation of food and vomit; Z94.4 Liver transplant status; E87.2 Acidosis; N17.9 Acute kidney failure, unspecified; E78.5 Hyperlipidemia, unspecified; Z20.822 Contact with and (suspected) exposure to COVID-19; E86.0 Dehydration; E11.65 Type 2 diabetes mellitus with hyperglycemia; E03.9 Hypothyroidism, unspecified; I12.9 Hypertensive chronic kidney disease with stage 1 through stage 4 chronic kidney disease, or unspecified chronic kidney disease; C50.919 Malignant neoplasm of unspecified site of unspecified female breast; T45.1X5A Adverse effect of antineoplastic and immunosuppressive drugs, initial encounter; Y92.9 Unspecified place or not applicable; E11.22 Type 2 diabetes mellitus with diabetic chronic kidney disease; N18.30 Chronic kidney disease, stage 3 unspecified; Z79.82 Long term (current) use of aspirin; Z79.84 Long term (current) use of oral hypoglycemic drugs; Z79.890 Hormone replacement therapy; Z79.899 Other long term (current) drug therapy
CPT/HCPCS: 36415; 71045; 80048; 80076; 82947; 83690; 83735; 83880; 84484; 85025; 85027; 85060; 87045; 87046; 87635; 89055; 96361; 96374; 99219; 99285; C1758; J1642; J1940; J8540

== ENCOUNTER 2020-12-22 10:15 | Outpatient (REF) | payer MEDICARE, MEDICAID, SELFPAY | END 2020-12-22 10:16 | disposition home or self-care (01) | LOC: HO.LAB 10:15 | PROVIDERS: PCP Internal Medicine; Visit Provider Internal Medicine | DX: Z20.822 Contact with and (suspected) exposure to COVID-19 (principal) | CPT/HCPCS: 36415; C9803; U0003 ==

== ENCOUNTER 2020-12-27 08:01 | Inpatient (IN) | payer MEDICARE, MEDICAID, SELFPAY ==
[2020-12-27] VITALS (10 sets, daily range): BP systolic 100–142; BP diastolic 63–84; PULSE 105–160; RESP 14–22; TEMP 36.1–37.7; O2SAT 93–96; BMI 27.8
--- NOTE | 2020-12-27 08:20 | ECG_ITS ---
Test Reason : TACHY Blood Pressure : / mmHG Vent. Rate : 158 BPM Atrial Rate : 158 BPM P-R Int : 096 ms QRS Dur : 084 ms QT Int : 264 ms P-R-T Axes : 000 026 022 degrees QTc Int : 428 ms Poor data quality Possible Atrial tachycardia / atrial flutter with 2:1 conduction Abnormal ECG When compared with ECG of 03-NOV-2004 13:47, Vent. rate has increased BY 60 BPM Possible Atrial tachycardia has replaced Normal sinus rhythm Referred By: Lacey Ramirez Electronically Signed By:ORLANDO SALTER MD
--- NOTE | 2020-12-27 08:21 | XR_ITS ---
EXAMINATION: XR CHEST CLINICAL INFORMATION: Dyspnea. COMPARISON: None TECHNIQUE: Frontal view of the chest was obtained. FINDINGS: There is patchy opacities seen in both lungs without any visible pleural effusion at this time. There is a right central venous port. Heart size and vascularity is normal. No gross bony abnormality seen. XR/XR chest 1V IMPRESSION: Bilateral patchy airspace opacities slightly more prominent than the previous study. There are right pleural effusion has resolved. No change in right central venous port catheter.
--- NOTE | 2020-12-27 08:24 | ED_ITS ---
HPI - SOB/Dyspnea General Chief Complaint: Dyspnea Stated Complaint: LOW O2SAT, +COVID Time Seen by Provider: 12/27/20 08:10 Source: patient and EMS Mode of arrival: EMS Limitations: no limitations History of Present Illness HPI Narrative: 65 yo female with DM, MARIA ESTHER, breast cancer just completed first cycle with adverse reaction and hospital admission for hypotension then hypoxia presumed fluid overload though recent ECHO within normal limits, she is s/p liver transplant as well comes in after being dx with COVID on 12/22 - VNA noted RA sats of 87% on on arrival to ED Seema has no complaints but she is tachycardic MD elicited complaint: shortness of breath ([facility]NA 87% on RA but Seema denies complaints) Pertinent past history: aspiration Onset (ago): day(s) (noted by [facility] today) Context: recent illness Severity: moderate Exacerbating factors: nothing Relieving factors: nothing Known history of: aspiration pneumonia Associated symptoms: denies other symptoms Treatment prior to arrival: oxygen Related Data Home Medications Medication Instructions Recorded Confirmed allopurinol 300 mg tablet 300 mg PO DAILY 08/21/20 12/10/20 blood sugar diagnostic #10 ea 08/21/20 12/07/20 furosemide 20 mg tablet 20 mg PO DAILY 08/21/20 12/10/20 lancets 28 gauge #100 ea 08/21/20 12/07/20 mycophenolate mofetil 250 mg 250 mg PO BID 08/21/20 12/10/20 capsule omega-3 fatty acids 1,000 mg 1,000 mg PO DAILY 08/21/20 12/10/20 capsule pediatric multivitamin 1 tab PO DAILY 08/21/20 12/10/20 aspirin 81 mg tablet,delayed 81 mg PO DAILY 09/02/20 12/10/20 release atorvastatin 20 mg PO DAILY 10/07/20 12/10/20 calcium carbonate 1,000 mg PO BID 10/29/20 12/10/20 lisinopril 5 mg tablet 5 mg PO DAILY 12/07/20 12/10/20 tacrolimus 0.5 mg capsule 0.5 mg PO BID 12/07/20 12/10/20 Tresiba FlexTouch U-100 20 unit SUBCUT DAILY 12/10/20 12/10/20 cholecalciferol (vitamin D3) 1,250 mcg PO Q14D 12/10/20 12/10/20 dulaglutide 1.5 mg SUBCUT TH 12/10/20 12/10/20 Previous Rx's Medication Instructions Recorded diltiazem HCl 180 mg 180 mg PO DAILY 90 Days #90 cap 09/02/20 capsule,extended release 24 hr levothyroxine 100 mcg tablet 100 mcg PO DAILY 90 Days #90 tab 09/02/20 metformin 500 mg tablet 500 mg PO BID #90 tab 09/02/20 pen needle, diabetic 31 gauge x #100 ea 09/02/2002/08 repaglinide 0.5 mg tablet 0.5 mg PO TID 90 Days #270 tab 09/02/20 dexamethasone [Decadron] 4 mg PO BID #100 tab 12/09/20 ondansetron HCl [Zofran] 8 mg PO Q8H PRN #50 tab 12/09/20 Allergies Allergy/AdvReac Type Severity Reaction Status Date / Time Peanut Butter Allergy Mild Rash Verified 11/22/20 12:00 Review of Systems Review of Systems: Constitutional : No Fever, No Chills ENT/Mouth : No sore throat, No Rhinorrhea, No Swallowing Difficulty Eyes: No Eye Pain, No Swelling, No Redness Cardiovascular : No Chest Pain, no SOB, No Orthopnea, no Edema Respiratory : No Cough, No Sputum, No Wheezing, positive dyspnea Gastrointestinal : No Nausea, No Vomiting, No Diarrhea, No abdominal Pain, No Hematochezia, No Melena Genitourinary : No Dysuria, No Urinary Frequency, No Hematuria Musculoskeletal : No joint pain, No Myalgias Skin : No Skin Lesions, No rash Neuro : No Weakness, No Numbness, No Dizziness, No Headache Psych : No Anxiety/Panic, No Depression Heme/Lymph: No Bruising, No Lymphadenopathy Endocrine : No Polyuria, No Polydipsia All other systems reviewed and are negative PMFSH Past Medical History Attestation statement: The following information was validated with the patient. Medical History Abnormal ultrasound of breast Age-related osteoporosis without current pathological fracture MARIA ESTHER (acute kidney injury) Cerebral palsy Chronic kidney disease, stage 3 unspecified Class 1 obesity with body mass index (BMI) of 30.0 to 30.9 in adult Developmental disability Diabetes type 2, uncontrolled Ductal carcinoma in situ of left breast Essential (primary) hypertension Hyperlipidemia, unspecified Hypothyroidism, unspecified Invasive ductal carcinoma of left breast custodial (current) use of insulin Type 2 diabetes mellitus with diabetic nephropathy Surgical History History of breast surgery History of liver transplant History of modified radical mastectomy of left breast (~10/07/20) History of splenectomy S/P breast lumpectomy Family History Family History Father Aneurysm Mother Cancer Paternal Grandfather Diabetes Brother No problems noted. Social History Social History Household Members: Friend(s) Housing: Apartment Alcohol intake: never Smoking Status: Never smoker Second Hand Smoke Exposure: No Advance Directives: Yes Advance Directives Information Provided: No Advance Directives on File: No service: No Current occupational status: disabled Physical Exam Vital Signs: Vital Signs: Last Vital Signs Temp 99.9 F 12/27/20 11:26 Pulse 109 H 12/27/20 11:26 Resp 18 12/27/20 11:26 BP 111/72 12/27/20 11:26 Pulse Ox 96 12/27/20 11:26 Body Mass Index 27.8 Appearance: Alert. Oriented X3. anxious mild acute distress. Eyes: Pupils equal, round and reactive to light. ENT: Pharynx normal. Neck: Normal inspection. Neck supple. CVS: tachycardic heart rate and rhythm. Pulses normal. Respiratory: No respiratory distress. Breath sounds with rhonchi noted in both lungs 94% on RA Abdomen: Soft and nontender. Skin: Skin warm and dry. Normal skin color. Normal skin turgor. Extremities: No lower extremity edema. No calf ttp Neuro: Oriented X 3. No motor deficit. No sensory deficit. Course Course Course Narrative: HR in 160s narrow, BP stable IV dilt ordered dilt gtt ordered at this time patient now 93% on 2L NC, desaturated to 90% CTA ordered to r/o PE elevated ddimer tele now visible p waves with PACs - will lower dilt to 2.5mg HR remained stable off dilt lactic acid cleared at thsi time MDM - SOB/Dyspnea MDM Narrative Medical decision making narrative: 65 yo female with multiple medical problems comes in with COVID + 12/22 here with hypoxia at home 87% documented by VNA the patient herself is not the best historian but she denies complaints she is tachycardic with sats sats 94-92% on RA, will need COVID labs, possible CTA, on her last visit she was taken off her diltiazem, PO tylenol for possible fever ordered Lab Data Result diagrams: 12/27/20 08:41 12/27/20 08:40 Labs: Lab Results 12/27/20 12/27/20 12/27/20 Range/Units 08:40 08:40 08:40 WBC (4.8-10.8) X10*3/uL RBC (4.20-5.50) X10*6/uL Hgb (12.0-16.0) g/dl Hct (37-47) % MCV (80-98) fL MCH (27.0-33.0) pg MCHC (31.0-35.0) g/dl RDW (11.0-16.0) % Plt Count (160-400) X10*3/uL MPV (9.4-12.3) fL Immature Gran % (Auto) Neut % (Auto) Lymph % (Auto) [place] % (Auto) Eos % (Auto) Baso % (Auto) Lymph # (Auto) [place] # (Auto) Eos # (Auto) Baso # (Auto) Abs Immat Gran (auto) Absolute Neuts (auto) Absolute Nucleated RBC (0.0-0.012) X10*3/uL Nucleated RBC % (auto) (0.0-0.2) /100WBC Neutrophils % (Manual) (45-73) % Band Neutrophils % (3-5) % Lymphocytes % (Manual) (20-40) % Atypical Lymphs % (Man) (0-6) % Monocytes % (Manual) (2-11) % Basophils % (Manual) (0-1) % Metamyelocytes % % Abs Neuts (Manual) (2.2-7.9) X10*3/uL Lymphocytes # (Manual) (0.6-4.8) X10*3/uL Atyp Lymphs # (Manual) x10*3/uL Monocytes # (Manual) (0.0-1.2) X10*3/uL Basophils # (Manual) (0.0-0.3) X10*3/uL Metamyelocytes # X10*3/uL Nucleated RBCs (0-0) /100WBC Platelet Estimate (NORMAL) Large Platelets Plt Morphology Comment RBC Morphology Spherocytes Ovalocytes [place] Bodies [place] Cells Acanthocytes (Spur) Schistocytes Smear Tech's Comments PT (10.8-13.0) SEC INR (0.9-1.1) APTT (24.1-38.0) SEC D-Dimer NG/ML VBG pH (7.32-7.43) VBG pCO2 mmHg VBG pO2 mmHg VBG HCO3 mmol/L VBG O2 Saturation % VBG Base Excess mmol/L Sodium 138 (135-145) mmol/L Potassium 5.2 H (3.3-5.1) mmol/L Chloride 107 (96-108) mmol/L Carbon Dioxide 16 L (22-29) mmol/L Anion Gap 20 (12-20) BUN 47 H (9-16) mg/dL Creatinine 1.22 (0.5-1.4) mg/dL Estim Creat Clear Calc 41.3 Estimated GFR 44 POC Glucose (60-115) mg/dL Random Glucose 119 H (60-115) mg/dL Lactic Acid 2.2 H* (0.5-2.0) mmol/L Lactic Acid Fup @ 2Hr (0.5-2.0) mmol/L Calcium 8.7 (8.4-10.2) mg/dL Magnesium 1.9 (1.6-2.6) mg/dL Ferritin 1729 H (10-250) ng/mL Total Bilirubin 0.3 (0.0-1.0) mg/dL Direct Bilirubin 0.2 (0.0-0.5) mg/dL AST 134 H (5-31) U/L ALT 102 H (0-31) U/L Alkaline Phosphatase 123 H (39-117) U/L Lactate Dehydrogenase 416 H (122-220) U/L Troponin I High Sens (<3.5-17.0) ng/L B-Natriuretic Peptide (<100) pg/mL Total Protein 6.3 L (6.5-8.0) g/dL Albumin 3.5 (3.5-5.0) g/dL Procalcitonin 0.52 ng/mL 02/01/21 02/01/21 02/01/21 Range/Units 08:41 08:41 08:41 WBC 10.4 (4.8-10.8) X10*3/uL RBC 4.86 (4.20-5.50) X10*6/uL Hgb 15.1 (12.0-16.0) g/dl Hct 45.7 (37-47) % MCV 94.0 (80-98) fL MCH 31.1 (27.0-33.0) pg MCHC 33.0 (31.0-35.0) g/dl RDW 14.9 (11.0-16.0) % Plt Count 671 H D (160-400) X10*3/uL MPV 10.5 (9.4-12.3) fL Immature Gran % (Auto) Cancelled Neut % (Auto) Cancelled Lymph % (Auto) Cancelled [place] % (Auto) Cancelled Eos % (Auto) Cancelled Baso % (Auto) Cancelled Lymph # (Auto) Cancelled [place] # (Auto) Cancelled Eos # (Auto) Cancelled Baso # (Auto) Cancelled Abs Immat Gran (auto) Cancelled Absolute Neuts (auto) Cancelled Absolute Nucleated RBC 0.660 H (0.0-0.012) X10*3/uL Nucleated RBC % (auto) 6.4 H (0.0-0.2) /100WBC Neutrophils % (Manual) 78 H (45-73) % Band Neutrophils % 4 (3-5) % Lymphocytes % (Manual) 3 L (20-40) % Atypical Lymphs % (Man) 1 (0-6) % Monocytes % (Manual) 11 (2-11) % Basophils % (Manual) 2 H (0-1) % Metamyelocytes % 1 % Abs Neuts (Manual) 8.5 H (2.2-7.9) X10*3/uL Lymphocytes # (Manual) 0.3 L (0.6-4.8) X10*3/uL Atyp Lymphs # (Manual) 0.1 x10*3/uL Monocytes # (Manual) 1.1 (0.0-1.2) X10*3/uL Basophils # (Manual) 0.2 (0.0-0.3) X10*3/uL Metamyelocytes # 0.1 X10*3/uL Nucleated RBCs 13 H (0-0) /100WBC Platelet Estimate INCREASED (NORMAL) Large Platelets PRESENT Plt Morphology Comment NOTED RBC Morphology NOTED Spherocytes 1+ Ovalocytes 1+ P[place] Bodies PRESENT [place] Cells 1+ Acanthocytes (Spur) 2+ Schistocytes 1+ Smear Tech's Comments MANUAL DIFF PT 14.2 H (10.8-13.0) SEC INR 1.2 H (0.9-1.1) APTT 32.8 (24.1-38.0) SEC D-Dimer 724 NG/ML VBG pH (7.32-7.43) VBG pCO2 mmHg VBG pO2 mmHg VBG HCO3 mmol/L VBG O2 Saturation % VBG Base Excess mmol/L Sodium (135-145) mmol/L Potassium (3.3-5.1) mmol/L Chloride (96-108) mmol/L Carbon Dioxide (22-29) mmol/L Anion Gap (12-20) BUN (9-16) mg/dL Creatinine (0.5-1.4) mg/dL Estim Creat Clear Calc Estimated GFR POC Glucose (60-115) mg/dL Random Glucose (60-115) mg/dL Lactic Acid (0.5-2.0) mmol/L Lactic Acid Fup @ 2Hr (0.5-2.0) mmol/L Calcium (8.4-10.2) mg/dL Magnesium (1.6-2.6) mg/dL Ferritin (10-250) ng/mL Total Bilirubin (0.0-1.0) mg/dL Direct Bilirubin (0.0-0.5) mg/dL AST (5-31) U/L ALT (0-31) U/L Alkaline Phosphatase (39-117) U/L Lactate Dehydrogenase (122-220) U/L Troponin I High Sens 61.6 H D (<3.5-17.0) ng/L B-Natriuretic Peptide 691 H (<100) pg/mL Total Protein (6.5-8.0) g/dL Albumin (3.5-5.0) g/dL Procalcitonin ng/mL 02/01/21 02/01/21 02/01/21 Range/Units 08:54 11:21 11:35 WBC (4.8-10.8) X10*3/uL RBC (4.20-5.50) X10*6/uL Hgb (12.0-16.0) g/dl Hct (37-47) % MCV (80-98) fL MCH (27.0-33.0) pg MCHC (31.0-35.0) g/dl RDW (11.0-16.0) % Plt Count (160-400) X10*3/uL MPV (9.4-12.3) fL Immature Gran % (Auto) Neut % (Auto) Lymph % (Auto) [place] % (Auto) Eos % (Auto) Baso % (Auto) Lymph # (Auto) [place] # (Auto) Eos # (Auto) Baso # (Auto) Abs Immat Gran (auto) Absolute Neuts (auto) Absolute Nucleated RBC (0.0-0.012) X10*3/uL Nucleated RBC % (auto) (0.0-0.2) /100WBC Neutrophils % (Manual) (45-73) % Band Neutrophils % (3-5) % Lymphocytes % (Manual) (20-40) % Atypical Lymphs % (Man) (0-6) % Monocytes % (Manual) (2-11) % Basophils % (Manual) (0-1) % Metamyelocytes % % Abs Neuts (Manual) (2.2-7.9) X10*3/uL Lymphocytes # (Manual) (0.6-4.8) X10*3/uL Atyp Lymphs # (Manual) x10*3/uL Monocytes # (Manual) (0.0-1.2) X10*3/uL Basophils # (Manual) (0.0-0.3) X10*3/uL Metamyelocytes # X10*3/uL Nucleated RBCs (0-0) /100WBC Platelet Estimate (NORMAL) Large Platelets Plt Morphology Comment RBC Morphology Spherocytes Ovalocytes [place] Bodies [place] Cells Acanthocytes (Spur) Schistocytes Smear Tech's Comments PT (10.8-13.0) SEC INR (0.9-1.1) APTT (24.1-38.0) SEC D-Dimer NG/ML VBG pH 7.28 L (7.32-7.43) VBG pCO2 35 mmHg VBG pO2 41 mmHg VBG HCO3 16 mmol/L VBG O2 Saturation 63.0 % VBG Base Excess -8.9 mmol/L Sodium (135-145) mmol/L Potassium (3.3-5.1) mmol/L Chloride (96-108) mmol/L Carbon Dioxide (22-29) mmol/L Anion Gap (12-20) BUN (9-16) mg/dL Creatinine (0.5-1.4) mg/dL Estim Creat Clear Calc Estimated GFR POC Glucose 105 (60-115) mg/dL Random Glucose (60-115) mg/dL Lactic Acid (0.5-2.0) mmol/L Lactic Acid Fup @ 2Hr 1.7 (0.5-2.0) mmol/L Calcium (8.4-10.2) mg/dL Magnesium (1.6-2.6) mg/dL Ferritin (10-250) ng/mL Total Bilirubin (0.0-1.0) mg/dL Direct Bilirubin (0.0-0.5) mg/dL AST (5-31) U/L ALT (0-31) U/L Alkaline Phosphatase (39-117) U/L Lactate Dehydrogenase (122-220) U/L Troponin I High Sens (<3.5-17.0) ng/L B-Natriuretic Peptide (<100) pg/mL Total Protein (6.5-8.0) g/dL Albumin (3.5-5.0) g/dL Procalcitonin ng/mL ECG Data Attestation: I personally reviewed and interpreted this ECG as follows: ECG interpretation date: 12/27/20 ECG interpretation time: 08:42 Interpretation: Rate: 160 Rhythm: narrow complex tachycardia regular [place]: normal Normal QRS complex. ST T wave : tall T waves V3-V5 qTC: normal prior studies: changed from prior The study has been interpreted contemporaneously by me. . Critical Care Time Critical Care Time Critical Care Time: Yes Total Critical Care Time: 60 Attestation: iv dilt gtt, recheck, review of records I attest to this time spent taking care of the patient Discharge Plan Discharge Clinical Impression: Pneumonia due to COVID-19 virus, Tachyarrhythmia, Acidosis, lactic Patient Disposition: Admitted As Inpatient
[2020-12-27] MEDS: Acetaminophen 325 MG TABLET 650 MG PO (08:44)
[2020-12-27] MEDS: dilTIAZem HCL 50 MG/10 ML VIAL IVPUSH (08:44)
[2020-12-27] MEDS: dilTIAZem HCL 125 MG in 0.9 % Sodium Chloride 100 ML 10 MG IVCONT (09:11)
[2020-12-27 09:12] LABS: Hematocrit 45.7 % (37-47); Hemoglobin 15.1 g/dl (12.0-16.0); Mean Corpuscular Hemoglobin 31.1 pg (27.0-33.0); Mean Platelet Volume 10.5 fL (9.4-12.3); Platelet Count 671 X10*3/uL (160-400); Red Blood Count 4.86 X10*6/uL (4.20-5.50); Red Cell Distribution Width 14.9 % (11.0-16.0); White Blood Count 10.4 X10*3/uL (4.8-10.8)
[2020-12-27 09:14] LABS: NRBC Pct Auto 6.4 /100WBC (0.0-0.2)
[2020-12-27 09:16] LABS: Base Excess VBG -8.9 mmol/L; HCO3 VBG 16 mmol/L; PCO2 VBG 35 mmHg; PO2 VBG 41 mmHg; pH VBG 7.28 (7.32-7.43)
[2020-12-27 09:19] LABS: INTERNATIONAL NORM RATIO 1.2 (0.9-1.1); Prothrombin Time 14.2 SEC (10.8-13.0)
[2020-12-27 09:21] LABS: Partial Thromboplastin Time 32.8 SEC (24.1-38.0)
[2020-12-27 09:22] LABS: D Dimer 724 NG/ML
--- NOTE | 2020-12-27 09:26 | CT_ITS ---
EXAMINATION: CT ANGIOGRAM OF THE CHEST WITH AND WITHOUT CONTRAST (CT PULMONARY ANGIOGRAM FOR PE) CLINICAL INFORMATION: Reason for Exam elevated ddimer, COVID + has cancer rule out PE COMPARISON: Previous chest x-ray from earlier today TECHNIQUE: Prior to contrast administration, noncontrast localization images were obtained. Subsequently, multidetector volumetric imaging was performed from the thoracic inlet to below the diaphragms following the administration of 65 mL Omnipaque 350 intravenous contrast. No contrast reaction reported Sagittal, coronal, and MIP oblique sagittal reformatted images were obtained on the CT workstation, uploaded to PACS, and reviewed. This CT examination was performed using dose optimization techniques as appropriate, variously including the following: *Automated exposure control *Adjustment of mA and/or kV according to patient size (this includes techniques or standardized protocols for targeted exams where dose is matched to indication/reason for exam; i.e. extremities or head) *Use of iterative reconstruction technique Total exam dose-length product 307 mGy-cm FINDINGS: QUALITY OF STUDY/CONTRAST BOLUS: Satisfactory. PULMONARY ARTERIES: No central or segmental pulmonary emboli. THORACIC AORTA: No aneurysm or dissection. LUNG: There are scattered peripheral areas of groundglass attenuation and subsegmental atelectasis or small infiltrate. This is throughout the lungs but greatest at the lung bases. This may be related to Covid infection. PLEURA: No pleural effusion or pneumothorax. There is left pleural thickening and pleural calcification. MEDIASTINUM: Upper normal size heart. Trace pericardial effusion. No hilar or mediastinal lymphadenopathy. No evidence of septal bowing or right heart strain. CHEST WALL/AXILLA: The left breast has been removed. There is abnormal soft tissue seen in the inferior left axilla left chest wall extending to the pectoral muscles. This has central low attenuation suggestive of fluid. This measures 1.5 x 5 x 7.5 cm in AP transverse and longitudinal dimension. This may represent postsurgical change. Recurrent or residual neoplasm cannot be excluded. There is a right jugular port with tip projecting over the SVC. OSSEOUS STRUCTURES: There are degenerative changes of the spine. There is a moderate old-appearing T10 vertebral body fracture. UPPER ABDOMEN: There are innumerable small pancreatic calcifications suggestive of chronic pancreatitis. No reflux of contrast into the hepatic veins to suggest elevated right heart pressures. CT/CT angio chest PE protocol IMPRESSION: No evidence of pulmonary embolism. Bilateral peripheral groundglass attenuation and denser infiltrates, greatest at the lung bases. This may be related to patient's history of Covid infection. Left pleural thickening and calcification. Abnormal soft tissue in the left lower axilla and chest wall, question representing postsurgical change. VTE: negative
[2020-12-27 09:31] LABS: Lactic Acid 2.2 mmol/L (0.5-2.0)
--- NOTE | 2020-12-27 09:33 | PC.NURSE ---
cardiazem titrated to 2.5mg/hr from 10mg/hr, pt's vs 103/74-107.
[2020-12-27 09:41] LABS: B Type Natriuretic Peptide 691 pg/mL (<100); Troponin-I High Sensitivity 61.6 ng/L (<3.5-17.0)
[2020-12-27 09:49] LABS: SLIDE REVIEW MANUAL DIFF
[2020-12-27 09:50] LABS: Alanine Aminotransferase 102 U/L (0-31); Albumin Level 3.5 g/dL (3.5-5.0); Alkaline Phosphatase 123 U/L (39-117); Anion Gap 20 (12-20); Aspartate Amino Transferase 134 U/L (5-31); Bilirubin Direct 0.2 mg/dL (0.0-0.5); Bilirubin Total 0.3 mg/dL (0.0-1.0); Blood Urea Nitrogen 47 mg/dL (9-16); Calcium 8.7 mg/dL (8.4-10.2); Carbon Dioxide 16 mmol/L (22-29); Chloride 107 mmol/L (96-108); Creatinine Clr Calc Pharmacy 41.3; Estimated Glomerular Filt Rate 44; Glucose Random 119 mg/dL (60-115); Lactate Dehydrogenase 416 U/L (122-220); Magnesium 1.9 mg/dL (1.6-2.6); Potassium 5.2 mmol/L (3.3-5.1); Sodium 138 mmol/L (135-145); Total Protein 6.3 g/dL (6.5-8.0)
[2020-12-27 09:56] LABS: Atypical Lymph Absolute Manual 0.1 x10*3/uL; Atypical Lymphs Percent Manual 1 % (0-6); Band Neutrophils Percent 4 % (3-5); Basophils Abs Manual 0.2 X10*3/uL (0.0-0.3); Basophils Percent Manual 2 % (0-1); Lymphocytes Absolute Manual 0.3 X10*3/uL (0.6-4.8); Lymphocytes Percent Manual 3 % (20-40); Metamyelocytes Absolute 0.1 X10*3/uL; Metamyelocytes Percent 1 %; Monocytes Absolute Manual 1.1 X10*3/uL (0.0-1.2); Monocytes Percent Manual 11 % (2-11); Neutrophils Absolute Manual 8.5 X10*3/uL (2.2-7.9); Neutrophils Percent Manual 78 % (45-73)
[2020-12-27 09:57] LABS: Nucleated Red Blood Cells 13 /100WBC (0-0)
[2020-12-27 09:58] LABS: Burr Cells 1+
[2020-12-27 09:59] LABS: Acanthocytes 2+
[2020-12-27 10:02] LABS: Howell Jolly Bodies PRESENT; Schistocytes 1+
[2020-12-27 10:03] LABS: Ovalocytes 1+
[2020-12-27 10:05] LABS: Spherocytes 1+
[2020-12-27 10:06] LABS: Large Platelet PRESENT; Platelet Estimate INCREASED (NORMAL); Platelet Morphology Comment NOTED; RBC Morphology NOTED
--- NOTE | 2020-12-27 10:12 | PC.NURSE ---
morro grimes d/c'd per dr. shell. pt is nsr 98.
[2020-12-27 10:53] LABS: Procalcitonin 0.52 ng/mL
[2020-12-27 11:02] LABS: Ferritin 1729 ng/mL (10-250)
[2020-12-27 11:08] LABS: Reflex Lactate? Lactic Acid Added
[2020-12-27] MEDS: iohexoL 350 MG/ML 100 ML INFUS..BTL IV (11:11)
--- NOTE | 2020-12-27 11:15 | PC.NURSE ---
Pt very difficult stick- this rn unable to obtain second set of blood cultures, tech at bedside to attempt.
[2020-12-27] MEDS: cefEPime HCl 1 GM in 0.9 % Sodium Chloride 50 ML IV (11:31)
[2020-12-27] MEDS: dexAMETHasone sod phosphate 4 MG/ML VIAL IVPUSH (11:31)
[2020-12-27 11:39] LABS: Glucose, Whole Blood 105 mg/dL (60-115)
[2020-12-27] MEDS: 0.9 % Sodium Chloride 500 ML 250 ML IV (11:43)
[2020-12-27 11:57] LABS: ~Lactic Acid-LAB USE ONLY 1.7 mmol/L (0.5-2.0)
[2020-12-27] MEDS: Azithromycin 500 MG in 0.9 % Sodium Chloride 250 ML 125 MG IV (12:23)
--- NOTE | 2020-12-27 12:28 | PC.NURSE ---
st on monitor under 110, pt denies dizziness, is pale martinez dry. unlabored resp at rest. is aware of 999 status. cardizem no longer running. nad.
--- NOTE | 2020-12-27 12:59 | PM.EVENT ---
Event Note Date of Service: 12/27/20 Event Note: Patient seen and examined independently and was present during reddy portion of E/M service. Agree with midlevel's history, physical, assessment, and plan. 65F presented with asymptomatic hypoxia found to be covid positive acute hypoxic respiratory failrue due to covid decadron, o2, id eval ?remdsivir or plasma candidate
--- NOTE | 2020-12-27 13:58 | HP_ITS ---
DATE OF SERVICE: 12/27/2020 CHIEF COMPLAINT: Hypoxia. HISTORY OF PRESENT ILLNESS: A 65-year-old woman with intellectual disability, presenting to the ER after being seen by her visiting nurse. Apparently, her oxygen saturation was found to be 87%. The patient was diagnosed with COVID on December 22. She has multiple medical problems including liver transplant in 2000. Apparently, she was also found to be tachycardic upon arrival to the ER with heart rate in the 150s. She may have had an episode of atrial tach or atrial flutter which she has no history of apparently. She was recently discharged from [facility] on December 13. At that time, she was treated for hypotension and MARIA ESTHER in the setting of diarrhea and chemotherapy. She does have a history of breast cancer and is currently undergoing chemotherapy treatment with Dr. Coto. In the ER today, chest CTA was negative for PE, did show bilateral peripheral ground-glass attenuation and denser infiltrates at the lung bases, likely representing COVID disease. She had no white count. Platelet count 671. Potassium 5.2, lactic acid 2.2. Troponin 61.6. BNP 691. She denied fever, chills, nausea, vomiting, diarrhea, chest pain. In the ER, she was given diltiazem, Tylenol, cefepime, Decadron, azithromycin, and normal saline. To be admitted for further management and treatment of COVID pneumonia, acute respiratory failure. PAST MEDICAL HISTORY: 1. Hypertension. 2. GERD. 3. Liver transplant in 2000. 4. Cholecystectomy. 5. Hyperlipidemia. 6. Gout. 7. Hypothyroidism. 8. Diabetes mellitus. PAST SURGICAL HISTORY: 1. Radical mastectomy in September of 2020. 2. Splenectomy. 3. Lumpectomy. SOCIAL HISTORY: Denies alcohol, tobacco, or illicit drugs. FAMILY HISTORY: Father had aneurysm. Mother had cancer. Paternal grandfather had diabetes. LABORATORY DATA: WBC 10.4, hemoglobin 15.1, hematocrit 45.7, platelets 671. Sodium 138, potassium 5.2, chloride is 107, bicarb is 16, BUN is 47, creatinine is 1.22. Lactic acid 2.2. AST is 134, ALT is 102, alkaline phosphatase is 123, LDH is 416, ferritin is 1729. Troponin is 61.6 with no complaints of chest pain. BNP is 691. REVIEW OF SYSTEMS: CONSTITUTIONAL: Denies any recent fever, chills, or decrease in appetite. RESPIRATORY: Denies any shortness of breath. CARDIOVASCULAR: Denies any chest pain. ABDOMEN: Denies any abdominal pain. NEURO: The patient is alert, seems to be oriented x3. Denies weakness or seizures. All other systems are reviewed and are negative. PHYSICAL EXAMINATION: CONSTITUTIONAL: Resting in bed. In no acute distress. VITAL SIGNS: 98.1, 106, 18, 117/84, 95% on 3.5 L. SKIN: Intact without rash or open sores. HEENT: Head is normocephalic and atraumatic. Eyes, pupils are PERRLA. Sclerae anicteric. Mouth and throat: Mucous membranes are intact and moist. NECK: Supple. No lymphadenopathy. No JVD noted. CHEST: Diminished throughout HEART: Tachycardia. NEURO: The patient is alert and oriented x3. No focal deficits noted. ASSESSMENT AND PLAN: A 65-year-old woman who is being admitted with acute hypoxic respiratory failure secondary to COVID pneumonia. 1. Acute hypoxic respiratory failure secondary to COVID pneumonia. This seemed to have resolved with oxygen supplementation. We will treat with doxycycline for now. Continue supplemental oxygen. Infectious Disease consultation. Decadron. Isolation. 2. Lactic acidosis, likely related to viral infection. 3. Elevated troponin. Possibly related to viral infection. We will trend. She did also have some abnormal EKG, so we will consult Cardiology. 4. Transaminitis, chronic. History of liver transplant. Continue tacrolimus and mycophenolate mofetil. 5. Hypertension. Stable blood pressure. She did have some low readings. We will hold antihypertensives. 6. Diabetes mellitus. Sliding scale, ADA diet. Continue metformin. 7. Hypothyroidism. Continue levothyroxine. 8. Hyperlipidemia. Continue aspirin and statin. 9. Deep vein thrombosis prophylaxis with heparin. 10. Case discussed with Dr. Medina. 11. Full code. DAMON Moctezuma MD JR/DBL / [id number]
[2020-12-27 14:53] LABS: Troponin-I High Sensitivity 46.2 ng/L (<3.5-17.0)
--- NOTE | 2020-12-27 15:06 | PC.NURSE ---
brother calling to make sure that we're aware that followed by kari davenport for breast ca due for chemo on dec 31. had first dose of chemo on dec 27. also followed by kari umaña for endocrine following liver transplant. and renal kari baker.
[2020-12-27] MEDS: Heparin Sodium,Porcine 5,000 UNIT/ML VIAL 5000 UNIT SUBCUT (15:47)
[2020-12-27] MEDS: 0.9 % Sodium Chloride Flush 3 ML SYRINGE IVFLUSH (15:47)
--- NOTE | 2020-12-27 18:30 | PC.NURSE ---
x1 for report- awaiting callback
[2020-12-27 21:04] LABS: Glucose, Whole Blood 243 mg/dL (60-115)
--- NOTE | 2020-12-27 22:49 | PC.NURSE ---
blood sugar at was 243.no POC checks or insulin coverage ordered. Dr Rivero notified via [employer]. No new orders as of this moment.
[2020-12-28] VITALS (10 sets, daily range): BP systolic 98–142; BP diastolic 51–76; PULSE 81–105; RESP 18–20; TEMP 36.2–36.6; O2SAT 90–97
[2020-12-28] MEDS: 0.9 % Sodium Chloride Flush 3 ML SYRINGE IVFLUSH ×4 (00:18→21:51)
[2020-12-28] MEDS: Heparin Sodium,Porcine 5,000 UNIT/ML VIAL 5000 UNIT SUBCUT ×2 (00:18→12:13)
[2020-12-28 06:25] LABS: Basophils Percent Auto 0.3 % (0-2); Hematocrit 40.1 % (37-47); Hemoglobin 13.2 g/dl (12.0-16.0); Imm Gran Abs Auto 0.28 X10*3/uL (0.00-0.03); Imm Gran Pct Auto 3.1 % (0.0-0.4); Lymphocytes Absolute Auto 0.7 X10*3/uL (1.2-4.9); Lymphocytes Percent Auto 7.7 % (20-40); MANUAL DIFF FLAG SCAN; Mean Corpuscular HGB Conc 32.9 g/dl (31.0-35.0); Mean Corpuscular Hemoglobin 30.7 pg (27.0-33.0); Mean Corpuscular Volume 93.3 fL (80-98); Mean Platelet Volume 11.1 fL (9.4-12.3); Monocytes Absolute Auto 1.8 X10*3/uL (0.1-1.2); Monocytes Percent Auto 19.7 % (2-11); Neutrophils Absolute Auto 6.2 X10*3/uL (2.0-8.3); Neutrophils Percent Auto 69.2 % (45-73); Platelet Count 556 X10*3/uL (160-400); Red Cell Distribution Width 15.1 % (11.0-16.0); SCAN SMEAR FLAG 1
[2020-12-28 06:52] LABS: B Type Natriuretic Peptide 164 pg/mL (<100)
[2020-12-28 07:12] LABS: Anion Gap 18 (12-20); Blood Urea Nitrogen 48 mg/dL (9-16); Calcium 8.4 mg/dL (8.4-10.2); Carbon Dioxide 14 mmol/L (22-29); Chloride 114 mmol/L (96-108); Creatinine Clr Calc Pharmacy 51.4; Estimated Glomerular Filt Rate 57; Glucose Random 145 mg/dL (60-115); Lactate Dehydrogenase 404 U/L (122-220); Potassium 5.3 mmol/L (3.3-5.1); Sodium 141 mmol/L (135-145)
[2020-12-28 07:13] LABS: Ferritin 1423 ng/mL (10-250)
[2020-12-28] MEDS: dexAMETHasone sod phosphate 4 MG/ML VIAL 6 MG IVPUSH (07:42)
[2020-12-28 08:02] LABS: Glucose, Whole Blood 152 mg/dL (60-115)
[2020-12-28 08:44] LABS: SLIDE REVIEW VERIFIED
[2020-12-28] MEDS: Aspirin Enteric Coated 81 MG TABLET.DR PO (09:42)
[2020-12-28] MEDS: mycophenolate mofetiL 250 MG CAPSULE PO ×2 (09:42→21:51)
[2020-12-28] MEDS: Furosemide 20 MG TABLET PO (09:42)
[2020-12-28] MEDS: allopurinoL 300 MG TABLET PO (09:42)
[2020-12-28] MEDS: Levothyroxine Sodium 100 MCG TABLET PO (09:42)
[2020-12-28] MEDS: Atorvastatin Calcium 20 MG TABLET PO (09:42)
[2020-12-28] MEDS: metFORMIN HCl 500 MG TABLET PO ×2 (09:42→16:35)
[2020-12-28] MEDS: dilTIAZem HCL CD 180 MG CAP.ER.24H PO (09:43)
[2020-12-28] MEDS: Tacrolimus 0.5 MG CAPSULE PO ×2 (09:53→21:51)
[2020-12-28 11:34] LABS: Glucose, Whole Blood 233 mg/dL (60-115)
[2020-12-28] MEDS: Insulin Lispro 100 UNIT/ML 3 ML VIAL SUBCUT ×3 (12:12→21:52)
--- NOTE | 2020-12-28 12:22 | HO.PM.IMPN ---
Subjective Subjective Date of Service: 12/28/20 Interval History: feels well Cardiovascular Cardiovascular: Reports no additional cardiovascular complaints Gastrointestinal Gastrointestinal: Reports no additional gastrointestinal complaints Physical Exam Vital Signs: Vital Signs: Last Vital Signs Temp 97.2 F 12/28/20 11:24 Pulse 100 12/28/20 11:24 Resp 18 12/28/20 11:24 BP 127/70 12/28/20 11:24 Pulse Ox 97 12/28/20 11:24 Body Mass Index 27.8 General: AO X 3, no acute distress Resp: CTA bilateral CVS: S1,S2,RRR GI: soft, non tender, non distended Neuro: motor grossly intact Psych: appropriate affect Objective Data Current Medications Generic Name Dose Route Start Last Admin Trade Name Freq PRN Reason Stop Dose Admin Allopurinol 300 mg 12/28/20 09:00 12/28/20 09:42 Allopurinol 300 Mg Tablet PO 300 mg DAILY TAMMY Administration Aspirin 81 mg 12/28/20 09:00 12/28/20 09:42 Aspirin Enteric Coated 81 Mg Tablet.Dr PO 81 mg DAILY TAMMY Administration Atorvastatin Calcium 20 mg 12/28/20 09:00 12/28/20 09:42 Atorvastatin Calcium 20 Mg Tablet PO 20 mg DAILY TAMMY Administration Dexamethasone Sodium Phosphate 6 mg 12/28/20 09:00 12/28/20 07:42 Dexamethasone Sod Phosphate 4 Mg/Ml Vial IVPUSH 6 mg DAILY TAMMY Administration Diltiazem HCl 180 mg 12/28/20 09:00 12/28/20 09:43 Diltiazem Hcl Cd 180 Mg Cap.Er.24h PO 180 mg DAILY TAMMY Administration Protocol Doxycycline Hyclate 100 mg 12/27/20 13:00 12/28/20 12:13 Doxycycline Hyclate 100 Mg Tablet PO 100 mg Q12H TAMMY Administration Furosemide 20 mg 12/28/20 09:00 12/28/20 09:42 Furosemide 20 Mg Tablet PO 20 mg DAILY TAMMY Administration Protocol Heparin Sodium (Porcine) 5,000 unit 12/27/20 13:00 12/28/20 12:13 Heparin Sodium,Porcine 5,000 Unit/Ml Vial SUBCUT 5,000 unit Q12H TAMMY Administration Insulin Human Lispro 0 unit 12/28/20 11:30 12/28/20 12:12 Insulin Lispro 100 Unit/Ml 3 Ml Vial SUBCUT 4 unit QIDACHS TAMMY Administration Protocol Levothyroxine Sodium 100 mcg 12/28/20 09:00 12/28/20 09:42 Levothyroxine Sodium 100 Mcg Tablet PO 100 mcg DAILY@0600 TAMMY Administration Lisinopril 5 mg 12/28/20 09:00 12/28/20 09:42 Lisinopril 5 Mg Tablet PO 5 mg DAILY TAMMY Administration Protocol Metformin HCl 500 mg 12/28/20 09:00 12/28/20 09:42 Metformin Hcl 500 Mg Tablet PO 500 mg BIDWM TAMMY Administration Mycophenolate Mofetil 250 mg 12/28/20 09:00 12/28/20 09:42 Mycophenolate Mofetil 250 Mg Capsule PO 250 mg BID TAMMY Administration Pharmacy Consult 1 each 12/27/20 12:31 Consult Rx Perform Med Rec MISCELLANE ONCE PRN Consult order Sodium Chloride 3 ml 12/27/20 16:00 12/28/20 07:42 0.9 % Sodium Chloride Flush 3 Ml Syringe IVFLUSH 3 ml QSHIFT TAMMY Administration Tacrolimus 0.5 mg 12/28/20 09:00 12/28/20 09:53 Tacrolimus 0.5 Mg Capsule PO 0.5 mg BID TAMMY Administration Labs CBC & Chem 7: 12/28/20 05:28 12/28/20 05:28 Microbiology Microbiology Results: Microbiology 12/27/20 08:54 Blood - Venous Blood Culture - Preliminary No growth after 24 hours. Assessment and Plan (1) Pneumonia due to COVID-19 virus: Status: Acute Assessment and Plan: 65-year-old woman presented with acute hypoxic respiratory failure secondary to COVID pneumonia. Acute hypoxic respiratory failure secondary to COVID pneumonia. continue decadron day 01/05 follow up id history of liver transplant cellcept, tacrolimus DM insulin hypothyroid synthroid hld statin breast cancer outpatient follow up
--- NOTE | 2020-12-28 13:20 | MHC.CM.PN ---
CM sppoke with patient and brother/HCP Chuck by phone r/t COVID +. Patient reports she is independent and lives with a room mate. Patient does have a HCP Chuck David [phone], copy requested. Discussed discharge plan, home with resumption of services from [facility]. Referral sent via [employer]. Patient will need transportation. CM will continue to follow patient for discharge needs.
[2020-12-28 13:43] LABS: Alanine Aminotransferase 85 U/L (0-31); Alkaline Phosphatase 113 U/L (39-117); Aspartate Amino Transferase 97 U/L (5-31); Bilirubin Direct < 0.2 mg/dL (0.0-0.5); Bilirubin Total 0.2 mg/dL (0.0-1.0); Total Protein 5.7 g/dL (6.5-8.0)
[2020-12-28 13:51] LABS: Alanine Aminotransferase 91 U/L (0-31); Albumin Level 3.5 g/dL (3.5-5.0); Alkaline Phosphatase 131 U/L (39-117); Aspartate Amino Transferase 94 U/L (5-31); Bilirubin Direct 0.2 mg/dL (0.0-0.5); Bilirubin Total 0.3 mg/dL (0.0-1.0); Total Protein 6.5 g/dL (6.5-8.0)
[2020-12-28 16:31] LABS: Glucose, Whole Blood 261 mg/dL (60-115)
[2020-12-28] MEDS: Remdesivir 200 MG in 0.9 % Sodium Chloride 210 ML 105 MG IV (16:34)
[2020-12-28 20:31] LABS: Glucose, Whole Blood 181 mg/dL (60-115)
--- NOTE | 2020-12-28 21:21 | W.PM.IDCN ---
History of Present Illness Data of Consult Service Date: 12/28/20 Requesting physician: Mark Medina Primary Care Provider: Nahum Fernandez MD [facility] Reason for consult: shortness of breath She presents to hospital with shortness of breath and found oxygen saturation 84% on room air. She has had no fever or chills but has had symptoms within 10 days. She has had hypotension after first chemotherapy for breast cancer. She also has had liver transplant in past Review of Systems Review of Systems: Yes all other systems are reviewed and are negative PMF Past Medical History Medical History Abnormal ultrasound of breast Age-related osteoporosis without current pathological fracture MARIA ESTHER (acute kidney injury) Cerebral palsy Chronic kidney disease, stage 3 unspecified Class 1 obesity with body mass index (BMI) of 30.0 to 30.9 in adult Developmental disability Diabetes type 2, uncontrolled Ductal carcinoma in situ of left breast Essential (primary) hypertension Hyperlipidemia, unspecified Hypothyroidism, unspecified Invasive ductal carcinoma of left breast 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 Family history: reviewed and not pertinent Surgical History Surgical History History of breast surgery History of liver transplant History of modified radical mastectomy of left breast (~10/07/20) History of splenectomy S/P breast lumpectomy Social History Social History Household Members: Caregiver Housing: Apartment Do you presently have visiting nurse or other home services: No Alcohol intake: never Smoking Status: Never smoker Second Hand Smoke Exposure: No Use of substances other than those prescribed or required for medical reasons: No Currently Displaying Signs/Symptoms of Drug Intoxication Withdrawal: No Have you been hit, kicked, punched, or otherwise hurt by someone within the past year? If so, by whom?: No Do you feel safe in your current relationship?: No Current Relationship Is there a partner from a previous relationship who is making you feel unsafe now?: No Are you made to feel afraid or neglected: No Advance Directives: Yes Advance Directives Information Provided: No Advance Directives on File: No Advance Directives Date on File: 12/27/20 Do you have thoughts of harming others: None Do you have a plan to hurt others: No Plan Recently lost weight without trying: No service: No Current occupational status: disabled Meds Allergies Allergy/AdvReac Type Severity Reaction Status Date / Time Peanut Butter Allergy Mild Rash Verified 12/27/20 18:54 Home Medications Medication Instructions Recorded Confirmed Type allopurinol 300 mg tablet 300 mg PO DAILY 08/21/20 12/27/20 History blood sugar diagnostic #10 ea 08/21/20 12/27/20 History furosemide 20 mg tablet 20 mg PO DAILY 08/21/20 12/27/20 History lancets 28 gauge #100 ea 08/21/20 12/27/20 History mycophenolate mofetil 250 mg 250 mg PO BID 08/21/20 12/27/20 History capsule aspirin 81 mg tablet,delayed 81 mg PO DAILY 09/02/20 12/27/20 History release atorvastatin 20 mg PO DAILY 10/07/20 12/27/20 History lisinopril 5 mg tablet 5 mg PO DAILY 12/07/20 12/27/20 History tacrolimus 0.5 mg capsule 0.5 mg PO BID 12/07/20 12/27/20 History Tresiba FlexTouch U-100 20 unit SUBCUT DAILY 12/10/20 12/27/20 History cholecalciferol (vitamin D3) 1,250 mcg PO Q14D 12/10/20 12/27/20 History Physical Exam Vital Signs: Vital Signs: Last Vital Signs Temp 97.7 F 12/28/20 19:04 Pulse 81 12/28/20 19:04 Resp 20 12/28/20 19:04 BP 124/60 12/28/20 19:04 Pulse Ox 90 L 12/28/20 19:04 Body Mass Index 27.8 Const: General: cooperative Orientation/consciousness: patient oriented x3 Eyes: General: appearance normal, both eyes and all related structures Resp: Effort & Inspection: normal respiratory effort Cardio: Rate: regular rate Rhythm: regular rhythm GI: Palpation (GI): Soft to palpation and nontender Skin: General skin exam: no rashes or lesions noted Neuro: General: patient oriented x3 Assessment and Plan (1) Pneumonia due to COVID-19 virus: Problem details: She has had symptoms within 10 days She has had recent chemotherapy She has liver transplant Status: Acute Would give Remdesivir and Dexamethasone per protocol Watch LFTs daily since there is concern with liver transplant Oxygen support Prognosis guarded Results Labs CBC & Chem 7: 12/28/20 05:28 12/28/20 05:28 Labs: Short CBC 12/28/20 Range/Units 05:28 WBC 9.0 (4.8-10.8) X10*3/uL Hgb 13.2 (12.0-16.0) g/dl Hct 40.1 (37-47) % Plt Count 556 H (160-400) X10*3/uL BMP 12/28/20 05:28 Sodium 141 Potassium 5.3 H Chloride 114 H Carbon Dioxide 14 L BUN 48 H Creatinine 0.98 Calcium 8.4 Liver Function 12/28/20 12/28/20 Range/Units 05:28 13:09 Total Bilirubin 0.2 0.3 (0.0-1.0) mg/dL Direct Bilirubin < 0.2 0.2 (0.0-0.5) mg/dL AST 97 H 94 H (5-31) U/L ALT 85 H 91 H (0-31) U/L Alkaline Phosphatase 113 131 H (39-117) U/L Albumin 3.0 L 3.5 (3.5-5.0) g/dL Microbiology Microbiology Results: Microbiology 12/27/20 11:21 Blood - Venous Blood Culture - Preliminary No growth after 24 hours. 12/27/20 08:54 Blood - Venous Blood Culture - Preliminary No growth after 24 hours.
[2020-12-29] VITALS (8 sets, daily range): BP systolic 102–130; BP diastolic 58–78; PULSE 71–83; RESP 18–20; TEMP 36.4–36.8; O2SAT 93–94
[2020-12-29] MEDS: Heparin Sodium,Porcine 5,000 UNIT/ML VIAL 5000 UNIT SUBCUT ×2 (02:00→13:43)
[2020-12-29] MEDS: Levothyroxine Sodium 100 MCG TABLET PO (05:50)
[2020-12-29 07:08] LABS: Basophils Percent Auto 0.3 % (0-2); Hematocrit 37.6 % (37-47); Hemoglobin 12.4 g/dl (12.0-16.0); Imm Gran Abs Auto 0.36 X10*3/uL (0.00-0.03); Imm Gran Pct Auto 2.6 % (0.0-0.4); Lymphocytes Absolute Auto 0.7 X10*3/uL (1.2-4.9); Lymphocytes Percent Auto 5.4 % (20-40); MANUAL DIFF FLAG SCAN; Mean Corpuscular Hemoglobin 30.9 pg (27.0-33.0); Mean Corpuscular Volume 93.8 fL (80-98); Mean Platelet Volume 10.9 fL (9.4-12.3); Monocytes Absolute Auto 2.4 X10*3/uL (0.1-1.2); Monocytes Percent Auto 17.7 % (2-11); Neutrophils Absolute Auto 10.1 X10*3/uL (2.0-8.3); Platelet Count 738 X10*3/uL (160-400); Red Blood Count 4.01 X10*6/uL (4.20-5.50); Red Cell Distribution Width 14.7 % (11.0-16.0); SCAN SMEAR FLAG 1; White Blood Count 13.7 X10*3/uL (4.8-10.8)
[2020-12-29 07:31] LABS: Blood Urea Nitrogen 53 mg/dL (9-16); Calcium 8.3 mg/dL (8.4-10.2); Creatinine Clr Calc Pharmacy 57.2; Estimated Glomerular Filt Rate > 60; Glucose Fasting 193 mg/dL (60-99)
[2020-12-29 07:33] LABS: NRBC Pct Auto 5.2 /100WBC (0.0-0.2)
[2020-12-29 07:39] LABS: Anion Gap 19 (12-20); Carbon Dioxide 14 mmol/L (22-29); Chloride 113 mmol/L (96-108); Potassium 5.9 mmol/L (3.3-5.1); Sodium 140 mmol/L (135-145)
[2020-12-29 07:57] LABS: Glucose, Whole Blood 160 mg/dL (60-115)
[2020-12-29] MEDS: Insulin Lispro 100 UNIT/ML 3 ML VIAL SUBCUT ×4 (08:32→22:38)
[2020-12-29] MEDS: dexAMETHasone sod phosphate 4 MG/ML VIAL 6 MG IVPUSH (08:34)
[2020-12-29] MEDS: Aspirin Enteric Coated 81 MG TABLET.DR PO (08:35)
[2020-12-29] MEDS: allopurinoL 300 MG TABLET PO (08:35)
[2020-12-29] MEDS: dilTIAZem HCL CD 180 MG CAP.ER.24H PO (08:35)
[2020-12-29] MEDS: mycophenolate mofetiL 250 MG CAPSULE PO ×2 (08:35→22:37)
[2020-12-29] MEDS: metFORMIN HCl 500 MG TABLET PO ×2 (08:35→16:30)
[2020-12-29] MEDS: Atorvastatin Calcium 20 MG TABLET PO (08:35)
[2020-12-29] MEDS: Furosemide 20 MG TABLET PO (08:35)
[2020-12-29] MEDS: Tacrolimus 0.5 MG CAPSULE PO ×2 (08:36→22:37)
[2020-12-29] MEDS: 0.9 % Sodium Chloride Flush 3 ML SYRINGE IVFLUSH ×3 (08:37→22:37)
[2020-12-29 09:08] LABS: SLIDE REVIEW VERIFIED
[2020-12-29 11:15] LABS: Glucose, Whole Blood 200 mg/dL (60-115)
--- NOTE | 2020-12-29 12:31 | HO.PM.IMPN ---
Subjective Subjective Date of Service: 12/29/20 Interval History: feels ok Cardiovascular Cardiovascular: Reports no additional cardiovascular complaints Gastrointestinal Gastrointestinal: Reports no additional gastrointestinal complaints Physical Exam Vital Signs: Vital Signs: Last Vital Signs Temp 98.2 F 12/29/20 11:53 Pulse 78 12/29/20 11:53 Resp 18 12/29/20 11:53 BP 113/62 12/29/20 11:53 Pulse Ox 94 12/29/20 11:53 Body Mass Index 27.8 General: AO X 3, no acute distress Resp: CTA bilateral CVS: S1,S2,RRR GI: soft, non tender, non distended Neuro: motor grossly intact Psych: appropriate affect Objective Data Current Medications Generic Name Dose Route Start Last Admin Trade Name Freq PRN Reason Stop Dose Admin Allopurinol 300 mg 12/28/20 09:00 12/29/20 08:35 Allopurinol 300 Mg Tablet PO 300 mg DAILY TAMMY Administration Aspirin 81 mg 12/28/20 09:00 12/29/20 08:35 Aspirin Enteric Coated 81 Mg Tablet.Dr PO 81 mg DAILY TAMMY Administration Atorvastatin Calcium 20 mg 12/28/20 09:00 12/29/20 08:35 Atorvastatin Calcium 20 Mg Tablet PO 20 mg DAILY TAMMY Administration Dexamethasone Sodium Phosphate 6 mg 12/28/20 09:00 12/29/20 08:34 Dexamethasone Sod Phosphate 4 Mg/Ml Vial IVPUSH 6 mg DAILY TAMMY Administration Diltiazem HCl 180 mg 12/28/20 09:00 12/29/20 08:35 Diltiazem Hcl Cd 180 Mg Cap.Er.24h PO 180 mg DAILY TAMMY Administration Protocol Doxycycline Hyclate 100 mg 12/27/20 13:00 12/29/20 02:00 Doxycycline Hyclate 100 Mg Tablet PO 100 mg Q12H TAMMY Administration Furosemide 20 mg 12/28/20 09:00 12/29/20 08:35 Furosemide 20 Mg Tablet PO 20 mg DAILY TAMMY Administration Protocol Heparin Sodium (Porcine) 5,000 unit 12/27/20 13:00 12/29/20 02:00 Heparin Sodium,Porcine 5,000 Unit/Ml Vial SUBCUT 5,000 unit Q12H TAMMY Administration Remdesivir 100 mg/ Sodium 230 mls @ 115 mls/hr 12/29/20 16:00 Chloride IV 01/01/21 17:59 Q24H [facility] Insulin Human Lispro 0 unit 12/28/20 11:30 12/29/20 11:48 Insulin Lispro 100 Unit/Ml 3 Ml Vial SUBCUT 2 unit QIDACHS [facility] Administration Protocol Levothyroxine Sodium 100 mcg 12/28/20 09:00 12/29/20 05:50 Levothyroxine Sodium 100 Mcg Tablet PO 100 mcg DAILY@0600 TAMMY Administration Lisinopril 5 mg 12/28/20 09:00 12/29/20 08:36 Lisinopril 5 Mg Tablet PO 5 mg DAILY TAMMY Administration Protocol Metformin HCl 500 mg 12/28/20 09:00 12/29/20 08:35 Metformin Hcl 500 Mg Tablet PO 500 mg BIDWM TAMMY Administration Mycophenolate Mofetil 250 mg 12/28/20 09:00 12/29/20 08:35 Mycophenolate Mofetil 250 Mg Capsule PO 250 mg BID TAMMY Administration Pharmacy Consult 1 each 12/27/20 12:31 Consult Rx Perform Med Rec MISCELLANE ONCE PRN Consult order Sodium Chloride 3 ml 12/27/20 16:00 12/29/20 08:37 0.9 % Sodium Chloride Flush 3 Ml Syringe IVFLUSH 3 ml QSHIFT TAMMY Administration Tacrolimus 0.5 mg 12/28/20 09:00 12/29/20 08:36 Tacrolimus 0.5 Mg Capsule PO 0.5 mg BID TAMMY Administration Labs CBC & Chem 7: 12/29/20 05:59 12/29/20 05:59 Microbiology Microbiology Results: Microbiology 12/27/20 08:54 Blood - Venous Blood Culture - Preliminary No growth after 48 hours. 12/27/20 11:21 Blood - Venous Blood Culture - Preliminary No growth after 24 hours. Assessment and Plan (1) Pneumonia due to COVID-19 virus: Problem details: She has had symptoms within 10 days She has had recent chemotherapy She has liver transplant Status: Acute Assessment and Plan: 65-year-old woman presented with acute hypoxic respiratory failure secondary to COVID pneumonia. Acute hypoxic respiratory failure secondary to COVID pneumonia. continue decadron day 3/10 remdisivir day 2/5 daily lfts history of liver transplant cellcept, tacrolimus DM insulin hypothyroid synthroid hld statin breast cancer outpatient follow up
[2020-12-29 16:16] LABS: Glucose, Whole Blood 352 mg/dL (60-115)
[2020-12-29] MEDS: Remdesivir 100 MG in 0.9 % Sodium Chloride 230 ML 115 MG IV (16:30)
--- NOTE | 2020-12-29 18:13 | PC.NURSE ---
DINNER POC 352. MD NOTIFIED. 10 UNITS OF SLIDING SCALE INSULIN ADMINISTERED PER MD. PTS FAMILY AND VNA RN UPDATED BY THIS RN TODAY.
[2020-12-29 21:02] LABS: Glucose, Whole Blood 333 mg/dL (60-115)
[2020-12-30] VITALS (7 sets, daily range): BP systolic 101–141; BP diastolic 50–82; PULSE 70–94; RESP 18–23; TEMP 36.2–36.5; O2SAT 93–96
[2020-12-30] MEDS: Heparin Sodium,Porcine 5,000 UNIT/ML VIAL 5000 UNIT SUBCUT ×2 (02:06→11:45)
[2020-12-30] MEDS: Levothyroxine Sodium 100 MCG TABLET PO (05:18)
[2020-12-30 06:13] LABS: Basophils Absolute Auto 0.1 X10*3/uL (0.0-0.2); Basophils Percent Auto 0.6 % (0-2); Hematocrit 41.9 % (37-47); Hemoglobin 13.1 g/dl (12.0-16.0); Imm Gran Abs Auto 0.56 X10*3/uL (0.00-0.03); Imm Gran Pct Auto 4.5 % (0.0-0.4); Lymphocytes Absolute Auto 0.6 X10*3/uL (1.2-4.9); Lymphocytes Percent Auto 4.6 % (20-40); MANUAL DIFF FLAG SCAN; Mean Corpuscular HGB Conc 31.3 g/dl (31.0-35.0); Mean Corpuscular Hemoglobin 30.7 pg (27.0-33.0); Mean Corpuscular Volume 98.1 fL (80-98); Mean Platelet Volume 10.8 fL (9.4-12.3); Monocytes Absolute Auto 2.1 X10*3/uL (0.1-1.2); Monocytes Percent Auto 16.4 % (2-11); NRBC Pct Auto 6.2 /100WBC (0.0-0.2); Neutrophils Absolute Auto 9.2 X10*3/uL (2.0-8.3); Neutrophils Percent Auto 73.9 % (45-73); Platelet Count 619 X10*3/uL (160-400); Red Blood Count 4.27 X10*6/uL (4.20-5.50); Red Cell Distribution Width 15.6 % (11.0-16.0); SCAN SMEAR FLAG 1; White Blood Count 12.5 X10*3/uL (4.8-10.8)
[2020-12-30 07:16] LABS: SLIDE REVIEW VERIFIED
[2020-12-30] MEDS: Insulin Lispro 100 UNIT/ML 3 ML VIAL SUBCUT ×4 (08:53→21:28)
[2020-12-30] MEDS: Aspirin Enteric Coated 81 MG TABLET.DR PO (08:54)
[2020-12-30] MEDS: Atorvastatin Calcium 20 MG TABLET PO (08:54)
[2020-12-30] MEDS: dilTIAZem HCL CD 180 MG CAP.ER.24H PO (08:54)
[2020-12-30] MEDS: Tacrolimus 0.5 MG CAPSULE PO ×2 (08:54→21:28)
[2020-12-30] MEDS: 0.9 % Sodium Chloride Flush 3 ML SYRINGE IVFLUSH ×3 (08:54→21:29)
[2020-12-30] MEDS: mycophenolate mofetiL 250 MG CAPSULE PO ×2 (08:54→21:28)
[2020-12-30] MEDS: metFORMIN HCl 500 MG TABLET PO ×2 (08:54→17:02)
[2020-12-30] MEDS: allopurinoL 300 MG TABLET PO (08:54)
[2020-12-30] MEDS: Furosemide 20 MG TABLET PO (08:54)
[2020-12-30] MEDS: dexAMETHasone sod phosphate 4 MG/ML VIAL 6 MG IVPUSH (08:55)
[2020-12-30 08:56] LABS: Glucose, Whole Blood 218 mg/dL (60-115)
[2020-12-30 09:28] LABS: Alanine Aminotransferase 66 U/L (0-31); Albumin Level 2.8 g/dL (3.5-5.0); Alkaline Phosphatase 101 U/L (39-117); Anion Gap 14 (12-20); Aspartate Amino Transferase 55 U/L (5-31); Bilirubin Direct 0.2 mg/dL (0.0-0.5); Bilirubin Total 0.3 mg/dL (0.0-1.0); Blood Urea Nitrogen 57 mg/dL (9-16); Calcium 8.6 mg/dL (8.4-10.2); Carbon Dioxide 17 mmol/L (22-29); Chloride 112 mmol/L (96-108); Creatinine Clr Calc Pharmacy 60.7; Estimated Glomerular Filt Rate > 60; Glucose Fasting 241 mg/dL (60-99); Potassium 6.2 mmol/L (3.3-5.1); Sodium 137 mmol/L (135-145); Total Protein 5.2 g/dL (6.5-8.0)
--- NOTE | 2020-12-30 09:33 | HO.PM.IMPN ---
Subjective Subjective Date of Service: 12/30/20 Interval History: fells well Respiratory Respiratory: Reports no additional respiratory complaints Gastrointestinal Gastrointestinal: Reports no additional gastrointestinal complaints Physical Exam Vital Signs: Vital Signs: Last Vital Signs Temp 97.4 F 12/30/20 08:00 Pulse 71 12/30/20 08:54 Resp 22 H 12/30/20 08:00 BP 124/69 12/30/20 08:54 Pulse Ox 94 12/30/20 08:00 Body Mass Index 27.8 General: AO X 3, no acute distress Resp: CTA bilateral CVS: S1,S2,RRR GI: soft, non tender, non distended Neuro: motor grossly intact Psych: appropriate affect Objective Data Current Medications Generic Name Dose Route Start Last Admin Trade Name Freq PRN Reason Stop Dose Admin Allopurinol 300 mg 12/28/20 09:00 12/30/20 08:54 Allopurinol 300 Mg Tablet PO 300 mg DAILY TAMMY Administration Aspirin 81 mg 12/28/20 09:00 12/30/20 08:54 Aspirin Enteric Coated 81 Mg Tablet.Dr PO 81 mg DAILY TAMMY Administration Atorvastatin Calcium 20 mg 12/28/20 09:00 12/30/20 08:54 Atorvastatin Calcium 20 Mg Tablet PO 20 mg DAILY TAMMY Administration Dexamethasone Sodium Phosphate 6 mg 12/28/20 09:00 12/30/20 08:55 Dexamethasone Sod Phosphate 4 Mg/Ml Vial IVPUSH 6 mg DAILY TAMMY Administration Diltiazem HCl 180 mg 12/28/20 09:00 12/30/20 08:54 Diltiazem Hcl Cd 180 Mg Cap.Er.24h PO 180 mg DAILY TAMMY Administration Protocol Doxycycline Hyclate 100 mg 12/27/20 13:00 12/30/20 02:06 Doxycycline Hyclate 100 Mg Tablet PO 100 mg Q12H TAMMY Administration Furosemide 20 mg 12/28/20 09:00 12/30/20 08:54 Furosemide 20 Mg Tablet PO 20 mg DAILY TAMMY Administration Protocol Heparin Sodium (Porcine) 5,000 unit 12/27/20 13:00 12/30/20 02:06 Heparin Sodium,Porcine 5,000 Unit/Ml Vial SUBCUT 5,000 unit Q12H TAMMY Administration Remdesivir 100 mg/ Sodium 230 mls @ 115 mls/hr 12/29/20 16:00 12/29/20 18:46 Chloride IV 01/01/21 17:59 Infused Q24H TAMMY Infusion Insulin Human Lispro 0 unit 12/28/20 11:30 12/30/20 08:53 Insulin Lispro 100 Unit/Ml 3 Ml Vial SUBCUT 4 unit QIDACHS TAMMY Administration Protocol Levothyroxine Sodium 100 mcg 12/28/20 09:00 12/30/20 05:18 Levothyroxine Sodium 100 Mcg Tablet PO 100 mcg DAILY@0600 TAMMY Administration Metformin HCl 500 mg 12/28/20 09:00 12/30/20 08:54 Metformin Hcl 500 Mg Tablet PO 500 mg BIDWM TAMMY Administration Mycophenolate Mofetil 250 mg 12/28/20 09:00 12/30/20 08:54 Mycophenolate Mofetil 250 Mg Capsule PO 250 mg BID TAMMY Administration Pharmacy Consult 1 each 12/27/20 12:31 Consult Rx Perform Med Rec MISCELLANE ONCE PRN Consult order Sodium Chloride 3 ml 12/27/20 16:00 12/30/20 08:54 0.9 % Sodium Chloride Flush 3 Ml Syringe IVFLUSH 3 ml QSHIFT TAMMY Administration Sodium Polystyrene Sulfonate 30 gm 12/30/20 09:29 Sodium Polystyrene Sulfon/Sorb 15 Gm/60 Ml Oral.Susp PO 12/30/20 09:30 ONCE ONE Tacrolimus 0.5 mg 12/28/20 09:00 12/30/20 08:54 Tacrolimus 0.5 Mg Capsule PO 0.5 mg BID TAMMY Administration Labs CBC & Chem 7: 12/30/20 05:20 12/30/20 07:58 Microbiology Microbiology Results: Microbiology 12/27/20 11:21 Blood - Venous Blood Culture - Preliminary No growth after 48 hours. 12/27/20 08:54 Blood - Venous Blood Culture - Preliminary No growth after 48 hours. Assessment and Plan (1) Pneumonia due to COVID-19 virus: Problem details: She has had symptoms within 10 days She has had recent chemotherapy She has liver transplant Status: Acute Assessment and Plan: 65-year-old woman presented with acute hypoxic respiratory failure secondary to COVID pneumonia. Acute hypoxic respiratory failure secondary to COVID pneumonia. continue decadron day 4/10 remdisivir day 3/5 daily lfts hyperkalemia dc lisinopril kayexylate monitor history of liver transplant cellcept, tacrolimus DM insulin hypothyroid synthroid hld statin breast cancer outpatient follow up
[2020-12-30] MEDS: Sodium Polystyrene Sulfon/Sorb 15 GM/60 ML ORAL.SUSP 30 GM PO (10:16)
[2020-12-30 11:34] LABS: Glucose, Whole Blood 297 mg/dL (60-115)
[2020-12-30 13:50] LABS: Anion Gap 17 (12-20); Blood Urea Nitrogen 57 mg/dL (9-16); Calcium 9.1 mg/dL (8.4-10.2); Carbon Dioxide 20 mmol/L (22-29); Chloride 110 mmol/L (96-108); Creatinine Clr Calc Pharmacy 49.4; Estimated Glomerular Filt Rate 54; Glucose Random 301 mg/dL (60-115); Potassium 6.1 mmol/L (3.3-5.1); Sodium 141 mmol/L (135-145)
[2020-12-30 14:26] LABS: Glucose, Whole Blood 252 mg/dL (60-115)
[2020-12-30] MEDS: Remdesivir 100 MG in 0.9 % Sodium Chloride 230 ML 115 MG IV (15:55)
[2020-12-30 16:22] LABS: Glucose, Whole Blood 298 mg/dL (60-115)
[2020-12-30 19:59] LABS: Glucose, Whole Blood 255 mg/dL (60-115)
[2020-12-31] VITALS (7 sets, daily range): BP systolic 120–161; BP diastolic 63–84; PULSE 90–93; RESP 18–23; TEMP 36–37.2; O2SAT 92–96
[2020-12-31] MEDS: Heparin Sodium,Porcine 5,000 UNIT/ML VIAL 5000 UNIT SUBCUT (02:18)
[2020-12-31 06:11] LABS: Basophils Absolute Auto 0.1 X10*3/uL (0.0-0.2); Basophils Percent Auto 0.4 % (0-2); Hemoglobin 13.3 g/dl (12.0-16.0); Imm Gran Abs Auto 0.57 X10*3/uL (0.00-0.03); Imm Gran Pct Auto 3.8 % (0.0-0.4); Lymphocytes Absolute Auto 0.6 X10*3/uL (1.2-4.9); Lymphocytes Percent Auto 4.2 % (20-40); MANUAL DIFF FLAG SCAN; Mean Corpuscular HGB Conc 33.3 g/dl (31.0-35.0); Mean Corpuscular Hemoglobin 31.5 pg (27.0-33.0); Mean Corpuscular Volume 94.8 fL (80-98); Mean Platelet Volume 10.9 fL (9.4-12.3); Monocytes Absolute Auto 2.4 X10*3/uL (0.1-1.2); Monocytes Percent Auto 15.7 % (2-11); Neutrophils Absolute Auto 11.5 X10*3/uL (2.0-8.3); Neutrophils Percent Auto 75.9 % (45-73); Platelet Count 677 X10*3/uL (160-400); Red Blood Count 4.22 X10*6/uL (4.20-5.50); Red Cell Distribution Width 15.1 % (11.0-16.0); SCAN SMEAR FLAG 1; White Blood Count 15.2 X10*3/uL (4.8-10.8)
[2020-12-31 06:21] LABS: NRBC Pct Auto 5.3 /100WBC (0.0-0.2)
[2020-12-31] MEDS: Levothyroxine Sodium 100 MCG TABLET PO (06:23)
[2020-12-31 06:35] LABS: SLIDE REVIEW VERIFIED
[2020-12-31 06:46] LABS: Alanine Aminotransferase 81 U/L (0-31); Albumin Level 2.8 g/dL (3.5-5.0); Alkaline Phosphatase 108 U/L (39-117); Anion Gap 19 (12-20); Aspartate Amino Transferase 72 U/L (5-31); Bilirubin Direct 0.2 mg/dL (0.0-0.5); Bilirubin Total 0.3 mg/dL (0.0-1.0); Blood Urea Nitrogen 54 mg/dL (9-16); Calcium 8.7 mg/dL (8.4-10.2); Carbon Dioxide 19 mmol/L (22-29); Chloride 110 mmol/L (96-108); Creatinine Clr Calc Pharmacy 57.2; Estimated Glomerular Filt Rate > 60; Glucose Fasting 248 mg/dL (60-99); Potassium 6.3 mmol/L (3.3-5.1); Sodium 142 mmol/L (135-145); Total Protein 5.3 g/dL (6.5-8.0)
[2020-12-31 08:15] LABS: Glucose, Whole Blood 238 mg/dL (60-115)
[2020-12-31] MEDS: dexAMETHasone sod phosphate 4 MG/ML VIAL 6 MG IVPUSH (08:36)
[2020-12-31] MEDS: Furosemide 20 MG TABLET PO (08:36)
[2020-12-31] MEDS: Insulin Regular, Human 100 UNIT/ML 3 ML VIAL 10 UNIT IVPUSH (08:36)
[2020-12-31] MEDS: 0.9 % Sodium Chloride Flush 3 ML SYRINGE IVFLUSH ×3 (08:36→23:33)
[2020-12-31] MEDS: dilTIAZem HCL CD 180 MG CAP.ER.24H PO (08:36)
[2020-12-31] MEDS: Atorvastatin Calcium 20 MG TABLET PO (08:36)
[2020-12-31] MEDS: metFORMIN HCl 500 MG TABLET PO ×2 (08:36→16:46)
[2020-12-31] MEDS: mycophenolate mofetiL 250 MG CAPSULE PO ×2 (08:36→20:39)
[2020-12-31] MEDS: Aspirin Enteric Coated 81 MG TABLET.DR PO (08:36)
[2020-12-31] MEDS: Tacrolimus 0.5 MG CAPSULE PO ×2 (08:37→20:40)
[2020-12-31] MEDS: allopurinoL 300 MG TABLET PO (08:38)
[2020-12-31] MEDS: Enoxaparin Sodium 40 MG/0.4 ML SYRINGE SUBCUT (08:39)
[2020-12-31 09:20] LABS: Anion Gap 21 (12-20); Blood Urea Nitrogen 52 mg/dL (9-16); Calcium 8.4 mg/dL (8.4-10.2); Carbon Dioxide 19 mmol/L (22-29); Chloride 111 mmol/L (96-108); Creatinine Clr Calc Pharmacy 57.2; Estimated Glomerular Filt Rate > 60; Glucose Random 268 mg/dL (60-115); Potassium 5.2 mmol/L (3.3-5.1); Sodium 146 mmol/L (135-145)
[2020-12-31 12:22] LABS: Glucose, Whole Blood 269 mg/dL (60-115)
--- NOTE | 2020-12-31 12:26 | P.PNIM_ITS ---
Subjective Subjective Date of Service: 12/31/20 Interval History: feels ok Cardiovascular Cardiovascular: Reports no additional cardiovascular complaints Respiratory Respiratory: Reports no additional respiratory complaints Physical Exam Vital Signs: Vital Signs: Last Vital Signs Temp 98.9 F 12/31/20 08:00 Pulse 90 12/31/20 08:00 Resp 19 12/31/20 08:00 BP 126/63 12/31/20 08:00 Pulse Ox 94 12/31/20 08:00 Body Mass Index 27.8 General: AO X 3, no acute distress Resp: CTA bilateral CVS: S1,S2,RRR GI: soft, non tender, non distended Neuro: motor grossly intact Psych: appropriate affect Objective Data Current Medications Generic Name Dose Route Start Last Admin Trade Name Freq PRN Reason Stop Dose Admin Allopurinol 300 mg 12/28/20 09:00 12/31/20 08:38 Allopurinol 300 Mg Tablet PO 300 mg DAILY TAMMY Administration Aspirin 81 mg 12/28/20 09:00 12/31/20 08:36 Aspirin Enteric Coated 81 Mg Tablet.Dr PO 81 mg DAILY TAMMY Administration Atorvastatin Calcium 20 mg 12/28/20 09:00 12/31/20 08:36 Atorvastatin Calcium 20 Mg Tablet PO 20 mg DAILY TAMMY Administration Dexamethasone Sodium Phosphate 6 mg 12/28/20 09:00 12/31/20 08:36 Dexamethasone Sod Phosphate 4 Mg/Ml Vial IVPUSH 6 mg DAILY TAMYM Administration Diltiazem HCl 180 mg 12/28/20 09:00 12/31/20 08:36 Diltiazem Hcl Cd 180 Mg Cap.Er.24h PO 180 mg DAILY TAMMY Administration Protocol Doxycycline Hyclate 100 mg 12/27/20 13:00 12/31/20 02:18 Doxycycline Hyclate 100 Mg Tablet PO 100 mg Q12H TAMMY Administration Enoxaparin Sodium 40 mg 12/31/20 08:00 12/31/20 08:39 Enoxaparin Sodium 40 Mg/0.4 Ml Syringe SUBCUT 40 mg Q24H TAMMY Administration Furosemide 20 mg 12/28/20 09:00 12/31/20 08:36 Furosemide 20 Mg Tablet PO 20 mg DAILY TAMMY Administration Protocol Remdesivir 100 mg/ Sodium 230 mls @ 115 mls/hr 12/29/20 16:00 12/30/20 17:55 Chloride IV 01/01/21 17:59 Infused Q24H TAMMY Infusion Insulin Human Lispro 0 unit 12/28/20 11:30 12/31/20 08:35 Insulin Lispro 100 Unit/Ml 3 Ml Vial SUBCUT Not Given QIDACHS [facility] Protocol Levothyroxine Sodium 100 mcg 12/28/20 09:00 12/31/20 06:23 Levothyroxine Sodium 100 Mcg Tablet PO 100 mcg DAILY@0600 TAMMY Administration Metformin HCl 500 mg 12/28/20 09:00 12/31/20 08:36 Metformin Hcl 500 Mg Tablet PO 500 mg BIDWM TAMMY Administration Mycophenolate Mofetil 250 mg 12/28/20 09:00 12/31/20 08:36 Mycophenolate Mofetil 250 Mg Capsule PO 250 mg BID TAMMY Administration Pharmacy Consult 1 each 12/27/20 12:31 Consult Rx Perform Med Rec MISCELLANE ONCE PRN Consult order Sodium Chloride 3 ml 12/27/20 16:00 12/31/20 08:36 0.9 % Sodium Chloride Flush 3 Ml Syringe IVFLUSH 3 ml QSHIFT TAMMY Administration Tacrolimus 0.5 mg 12/28/20 09:00 12/31/20 08:37 Tacrolimus 0.5 Mg Capsule PO 0.5 mg BID TAMMY Administration Labs CBC & Chem 7: 12/31/20 05:26 12/31/20 08:40 Microbiology Microbiology Results: Microbiology 12/27/20 11:21 Blood - Venous Blood Culture - Preliminary No growth after 48 hours. 12/27/20 08:54 Blood - Venous Blood Culture - Preliminary No growth after 48 hours. Assessment and Plan (1) Pneumonia due to COVID-19 virus: Problem details: She has had symptoms within 10 days She has had recent chemotherapy She has liver transplant Status: Acute Assessment and Plan: 65-year-old woman presented with acute hypoxic respiratory failure secondary to COVID pneumonia. Acute hypoxic respiratory failure secondary to COVID pneumonia. continue decadron day 5/10 remdisivir day 4/5 daily lfts hyperkalemia with thrombocytosis likely pseudohyperkalemia monitor, check with heparinezed tube history of liver transplant cellcept, tacrolimus DM insulin hypothyroid synthroid hld statin breast cancer outpatient follow up
[2020-12-31] MEDS: Insulin Lispro 100 UNIT/ML 3 ML VIAL SUBCUT ×2 (12:43→16:45)
[2020-12-31 16:36] LABS: Glucose, Whole Blood 313 mg/dL (60-115)
[2020-12-31] MEDS: Remdesivir 100 MG in 0.9 % Sodium Chloride 230 ML 115 MG IV (16:46)
[2020-12-31 20:16] LABS: Glucose, Whole Blood 83 mg/dL (60-115)
[2021-01-01 04:00] VITALS: BP 160/82; PULSE 85; RESP 20; TEMP 36.3; O2SAT 96
[2021-01-01] MEDS: Levothyroxine Sodium 100 MCG TABLET PO (05:50)
[2021-01-01 06:37] LABS: Basophils Absolute Auto 0.1 X10*3/uL (0.0-0.2); Basophils Percent Auto 0.6 % (0-2); Hematocrit 42.2 % (37-47); Hemoglobin 13.6 g/dl (12.0-16.0); Imm Gran Abs Auto 0.64 X10*3/uL (0.00-0.03); Imm Gran Pct Auto 3.7 % (0.0-0.4); Lymphocytes Absolute Auto 1.3 X10*3/uL (1.2-4.9); Lymphocytes Percent Auto 7.4 % (20-40); MANUAL DIFF FLAG SCAN; Mean Corpuscular HGB Conc 32.2 g/dl (31.0-35.0); Mean Corpuscular Hemoglobin 30.8 pg (27.0-33.0); Mean Corpuscular Volume 95.7 fL (80-98); Mean Platelet Volume 11.3 fL (9.4-12.3); Monocytes Absolute Auto 3.1 X10*3/uL (0.1-1.2); Monocytes Percent Auto 17.9 % (2-11); NRBC Pct Auto 3.9 /100WBC (0.0-0.2); Neutrophils Absolute Auto 12.4 X10*3/uL (2.0-8.3); Neutrophils Percent Auto 70.4 % (45-73); Platelet Count 605 X10*3/uL (160-400); Red Blood Count 4.41 X10*6/uL (4.20-5.50); Red Cell Distribution Width 15.3 % (11.0-16.0); SCAN SMEAR FLAG 1; White Blood Count 17.5 X10*3/uL (4.8-10.8)
[2021-01-01 07:16] LABS: SLIDE REVIEW VERIFIED
[2021-01-01 07:17] LABS: Anion Gap 17 (12-20); Blood Urea Nitrogen 55 mg/dL (9-16); Calcium 8.4 mg/dL (8.4-10.2); Carbon Dioxide 22 mmol/L (22-29); Chloride 110 mmol/L (96-108); Creatinine Clr Calc Pharmacy 60.7; Estimated Glomerular Filt Rate > 60; Glucose Fasting 177 mg/dL (60-99); Potassium 6.8 mmol/L (3.3-5.1); Sodium 142 mmol/L (135-145)
[2021-01-01 07:22] LABS: Glucose, Whole Blood 159 mg/dL (60-115)
[2021-01-01 08:28] LABS: Alanine Aminotransferase 67 U/L (0-31); Albumin Level 2.7 g/dL (3.5-5.0); Alkaline Phosphatase 117 U/L (39-117); Anion Gap 16 (12-20); Aspartate Amino Transferase 49 U/L (5-31); Bilirubin Direct 0.2 mg/dL (0.0-0.5); Bilirubin Total 0.4 mg/dL (0.0-1.0); Blood Urea Nitrogen 54 mg/dL (9-16); Calcium 8.8 mg/dL (8.4-10.2); Carbon Dioxide 22 mmol/L (22-29); Chloride 110 mmol/L (96-108); Creatinine Clr Calc Pharmacy 59.2; Estimated Glomerular Filt Rate > 60; Glucose Random 185 mg/dL (60-115); Potassium 5.6 mmol/L (3.3-5.1); Sodium 142 mmol/L (135-145); Total Protein 5.8 g/dL (6.5-8.0)
[2021-01-01] MEDS: Enoxaparin Sodium 40 MG/0.4 ML SYRINGE SUBCUT (08:48)
[2021-01-01] MEDS: Insulin Lispro 100 UNIT/ML 3 ML VIAL SUBCUT ×4 (08:48→21:19)
[2021-01-01] MEDS: Aspirin Enteric Coated 81 MG TABLET.DR PO (08:49)
[2021-01-01] MEDS: dexAMETHasone sod phosphate 4 MG/ML VIAL 6 MG IVPUSH (08:49)
[2021-01-01] MEDS: Furosemide 20 MG TABLET PO (08:49)
[2021-01-01] MEDS: metFORMIN HCl 500 MG TABLET PO ×2 (08:49→17:27)
[2021-01-01] MEDS: Atorvastatin Calcium 20 MG TABLET PO (08:49)
[2021-01-01] MEDS: allopurinoL 300 MG TABLET PO (08:49)
[2021-01-01] MEDS: mycophenolate mofetiL 250 MG CAPSULE PO ×2 (08:49→19:41)
[2021-01-01] MEDS: Tacrolimus 0.5 MG CAPSULE PO ×2 (08:50→19:40)
[2021-01-01] MEDS: dilTIAZem HCL CD 180 MG CAP.ER.24H PO (08:50)
[2021-01-01] MEDS: 0.9 % Sodium Chloride Flush 3 ML SYRINGE IVFLUSH ×3 (08:51→19:45)
[2021-01-01 09:16] VITALS: BP 130/70; PULSE 82; RESP 18; TEMP 36.2
--- NOTE | 2021-01-01 10:34 | HO.PM.IMPN ---
Subjective Subjective Date of Service: 01/01/21 Interval History: stable Cardiovascular Cardiovascular: Reports no additional cardiovascular complaints Gastrointestinal Gastrointestinal: Reports no additional gastrointestinal complaints Physical Exam Vital Signs: Vital Signs: Last Vital Signs Temp 97.2 F 01/01/21 09:16 Pulse 82 01/01/21 09:16 Resp 18 01/01/21 09:16 BP 130/70 01/01/21 09:16 Pulse Ox 96 01/01/21 04:00 Body Mass Index 27.8 General: AO X 3, no acute distress Resp: CTA bilateral CVS: S1,S2,RRR GI: soft, non tender, non distended Neuro: motor grossly intact Psych: appropriate affect Objective Data Current Medications Generic Name Dose Route Start Last Admin Trade Name Freq PRN Reason Stop Dose Admin Allopurinol 300 mg 12/28/20 09:00 01/01/21 08:49 Allopurinol 300 Mg Tablet PO 300 mg DAILY TAMMY Administration Aspirin 81 mg 12/28/20 09:00 01/01/21 08:49 Aspirin Enteric Coated 81 Mg Tablet.Dr PO 81 mg DAILY TAMMY Administration Atorvastatin Calcium 20 mg 12/28/20 09:00 01/01/21 08:49 Atorvastatin Calcium 20 Mg Tablet PO 20 mg DAILY TAMMY Administration Dexamethasone Sodium Phosphate 6 mg 12/28/20 09:00 01/01/21 08:49 Dexamethasone Sod Phosphate 4 Mg/Ml Vial IVPUSH 6 mg DAILY TAMMY Administration Diltiazem HCl 180 mg 12/28/20 09:00 01/01/21 08:50 Diltiazem Hcl Cd 180 Mg Cap.Er.24h PO 180 mg DAILY TAMMY Administration Protocol Doxycycline Hyclate 100 mg 12/27/20 13:00 12/31/20 23:38 Doxycycline Hyclate 100 Mg Tablet PO 100 mg Q12H TAMMY Administration Enoxaparin Sodium 40 mg 12/31/20 08:00 01/01/21 08:48 Enoxaparin Sodium 40 Mg/0.4 Ml Syringe SUBCUT 40 mg Q24H TAMMY Administration Furosemide 20 mg 12/28/20 09:00 01/01/21 08:49 Furosemide 20 Mg Tablet PO 20 mg DAILY TAMMY Administration Protocol Remdesivir 100 mg/ Sodium 230 mls @ 115 mls/hr 12/29/20 16:00 12/31/20 20:00 Chloride IV 01/01/21 17:59 Infused Q24H TAMMY Infusion Insulin Human Lispro 0 unit 02/02/21 11:30 01/01/21 08:48 Insulin Lispro 100 Unit/Ml 3 Ml Vial SUBCUT 2 unit QIDACHS TAMMY Administration Protocol Levothyroxine Sodium 100 mcg 12/28/20 09:00 01/01/21 05:50 Levothyroxine Sodium 100 Mcg Tablet PO 100 mcg DAILY@0600 TAMMY Administration Metformin HCl 500 mg 12/28/20 09:00 01/01/21 08:49 Metformin Hcl 500 Mg Tablet PO 500 mg BIDWM TAMMY Administration Mycophenolate Mofetil 250 mg 12/28/20 09:00 01/01/21 08:49 Mycophenolate Mofetil 250 Mg Capsule PO 250 mg BID TAMMY Administration Pharmacy Consult 1 each 12/27/20 12:31 Consult Rx Perform Med Rec MISCELLANE ONCE PRN Consult order Sodium Chloride 3 ml 12/27/20 16:00 01/01/21 08:51 0.9 % Sodium Chloride Flush 3 Ml Syringe IVFLUSH 3 ml QSHIFT TAMMY Administration Tacrolimus 0.5 mg 12/28/20 09:00 01/01/21 08:50 Tacrolimus 0.5 Mg Capsule PO 0.5 mg BID TAMMY Administration Labs CBC & Chem 7: 01/01/21 05:48 01/01/21 07:48 Microbiology Microbiology Results: Microbiology 12/27/20 11:21 Blood - Venous Blood Culture - Preliminary No growth after 48 hours. 12/27/20 08:54 Blood - Venous Blood Culture - Preliminary No growth after 48 hours. Assessment and Plan (1) Pneumonia due to COVID-19 virus: Problem details: She has had symptoms within 10 days She has had recent chemotherapy She has liver transplant Status: Acute Assessment and Plan: 65-year-old woman presented with acute hypoxic respiratory failure secondary to COVID pneumonia. Acute hypoxic respiratory failure secondary to COVID pneumonia. continue decadron day 6/10 remdisivir day 5/5 daily lfts pseudohyperkalemia due to thrombocytosis still some hemolysis even in heparinized tube, but clearly less, doubt any actual hyperkalemia unclear as to cause of thrombocytosis possibly due to inflammation from covid, though usually causes thrombocytopenia now downtrending, monitor for now history of liver transplant cellcept, tacrolimus DM insulin hypothyroid synthroid hld statin breast cancer outpatient follow up
[2021-01-01 11:16] LABS: Glucose, Whole Blood 231 mg/dL (60-115)
[2021-01-01 16:04] VITALS: BP 121/67; PULSE 81; RESP 20; TEMP 36.3; O2SAT 93
[2021-01-01 16:48] LABS: Glucose, Whole Blood 327 mg/dL (60-115)
[2021-01-01] MEDS: Remdesivir 100 MG in 0.9 % Sodium Chloride 230 ML 115 MG IV (17:26)
[2021-01-01 19:22] VITALS: BP 127/82; PULSE 94; RESP 18; TEMP 36.3; O2SAT 95
[2021-01-01 20:45] LABS: Glucose, Whole Blood 226 mg/dL (60-115)
[2021-01-02] VITALS (9 sets, daily range): BP systolic 108–132; BP diastolic 55–81; PULSE 68–94; RESP 16–20; TEMP 36.2–36.9; O2SAT 92–96
[2021-01-02] MEDS: Levothyroxine Sodium 100 MCG TABLET PO (05:46)
[2021-01-02 08:27] LABS: Glucose, Whole Blood 223 mg/dL (60-115)
[2021-01-02] MEDS: dexAMETHasone sod phosphate 4 MG/ML VIAL 6 MG IVPUSH (08:27)
[2021-01-02] MEDS: Insulin Lispro 100 UNIT/ML 3 ML VIAL SUBCUT ×4 (08:27→21:26)
[2021-01-02] MEDS: Tacrolimus 0.5 MG CAPSULE PO ×2 (08:28→21:26)
[2021-01-02] MEDS: Enoxaparin Sodium 40 MG/0.4 ML SYRINGE SUBCUT (08:28)
[2021-01-02] MEDS: 0.9 % Sodium Chloride Flush 3 ML SYRINGE IVFLUSH ×3 (08:28→21:27)
[2021-01-02] MEDS: dilTIAZem HCL CD 180 MG CAP.ER.24H PO (08:28)
[2021-01-02] MEDS: Aspirin Enteric Coated 81 MG TABLET.DR PO (08:28)
[2021-01-02] MEDS: mycophenolate mofetiL 250 MG CAPSULE PO ×2 (08:28→21:26)
[2021-01-02] MEDS: Atorvastatin Calcium 20 MG TABLET PO (08:29)
[2021-01-02] MEDS: Furosemide 20 MG TABLET PO (08:29)
[2021-01-02] MEDS: allopurinoL 300 MG TABLET PO (08:29)
[2021-01-02] MEDS: metFORMIN HCl 500 MG TABLET PO ×2 (08:29→16:42)
--- NOTE | 2021-01-02 09:43 | HO.PM.IMPN ---
Subjective Subjective Date of Service: 01/02/21 Interval History: hoping to go home soon Cardiovascular Cardiovascular: Reports no additional cardiovascular complaints Gastrointestinal Gastrointestinal: Reports no additional gastrointestinal complaints Physical Exam Vital Signs: Vital Signs: Last Vital Signs Temp 97.3 F 01/02/21 07:59 Pulse 86 01/02/21 08:28 Resp 16 01/02/21 07:59 BP 122/66 01/02/21 08:28 Pulse Ox 95 01/02/21 07:59 Body Mass Index 27.8 General: AO X 3, no acute distress Resp: CTA bilateral CVS: S1,S2,RRR GI: soft, non tender, non distended Neuro: motor grossly intact Psych: appropriate affect Objective Data Current Medications Generic Name Dose Route Start Last Admin Trade Name Braedenq PRN Reason Stop Dose Admin Allopurinol 300 mg 12/28/20 09:00 01/02/21 08:29 Allopurinol 300 Mg Tablet PO 300 mg DAILY TAMMY Administration Aspirin 81 mg 12/28/20 09:00 01/02/21 08:28 Aspirin Enteric Coated 81 Mg Tablet.Dr PO 81 mg DAILY TAMMY Administration Atorvastatin Calcium 20 mg 12/28/20 09:00 01/02/21 08:29 Atorvastatin Calcium 20 Mg Tablet PO 20 mg DAILY TAMMY Administration Dexamethasone Sodium Phosphate 6 mg 12/28/20 09:00 01/02/21 08:27 Dexamethasone Sod Phosphate 4 Mg/Ml Vial IVPUSH 6 mg DAILY TAMMY Administration Diltiazem HCl 180 mg 12/28/20 09:00 01/02/21 08:28 Diltiazem Hcl Cd 180 Mg Cap.Er.24h PO 180 mg DAILY TAMMY Administration Protocol Doxycycline Hyclate 100 mg 12/27/20 13:00 01/02/21 01:16 Doxycycline Hyclate 100 Mg Tablet PO 100 mg Q12H TAMMY Administration Enoxaparin Sodium 40 mg 12/31/20 08:00 01/02/21 08:28 Enoxaparin Sodium 40 Mg/0.4 Ml Syringe SUBCUT 40 mg Q24H TAMMY Administration Furosemide 20 mg 12/28/20 09:00 01/02/21 08:29 Furosemide 20 Mg Tablet PO 20 mg DAILY TAMMY Administration Protocol Insulin Human Lispro 0 unit 12/28/20 11:30 01/02/21 08:27 Insulin Lispro 100 Unit/Ml 3 Ml Vial SUBCUT 4 unit QIDACHS TAMMY Administration Protocol Levothyroxine Sodium 100 mcg 12/28/20 09:00 01/02/21 05:46 Levothyroxine Sodium 100 Mcg Tablet PO 100 mcg DAILY@0600 TAMMY Administration Metformin HCl 500 mg 12/28/20 09:00 01/02/21 08:29 Metformin Hcl 500 Mg Tablet PO 500 mg BIDWM TAMMY Administration Mycophenolate Mofetil 250 mg 12/28/20 09:00 01/02/21 08:28 Mycophenolate Mofetil 250 Mg Capsule PO 250 mg BID TAMMY Administration Pharmacy Consult 1 each 12/27/20 12:31 Consult Rx Perform Med Rec MISCELLANE ONCE PRN Consult order Sodium Chloride 3 ml 12/27/20 16:00 01/02/21 08:28 0.9 % Sodium Chloride Flush 3 Ml Syringe IVFLUSH 3 ml QSHIFT TAMMY Administration Tacrolimus 0.5 mg 12/28/20 09:00 01/02/21 08:28 Tacrolimus 0.5 Mg Capsule PO 0.5 mg BID TAMMY Administration Labs CBC & Chem 7: 01/01/21 05:48 01/01/21 07:48 Microbiology Microbiology Results: Microbiology 12/27/20 11:21 Blood - Venous Blood Culture - Final No growth after 5 days. 12/27/20 08:54 Blood - Venous Blood Culture - Final No growth after 5 days. Assessment and Plan (1) Pneumonia due to COVID-19 virus: Problem details: She has had symptoms within 10 days She has had recent chemotherapy She has liver transplant Status: Acute Assessment and Plan: 65-year-old woman presented with acute hypoxic respiratory failure secondary to COVID pneumonia. Acute hypoxic respiratory failure secondary to COVID pneumonia. continue decadron day 06/04 completed remdisivir jan 01 wean 02 as tolerated can dc home once off o2 pseudohyperkalemia due to thrombocytosis still some hemolysis even in heparinized tube, but clearly less, doubt any actual hyperkalemia, monitor bmp in heparinized tube unclear as to cause of thrombocytosis possibly due to inflammation from covid, though usually causes thrombocytopenia now downtrending, monitor for now history of liver transplant cellcept, tacrolimus DM insulin hypothyroid synthroid hld statin breast cancer outpatient follow up
[2021-01-02 11:50] LABS: Glucose, Whole Blood 231 mg/dL (60-115)
[2021-01-02 16:32] LABS: Glucose, Whole Blood 231 mg/dL (60-115)
--- NOTE | 2021-01-02 17:49 | PC.NURSE ---
Pt A&Ox3, vague, slightly delayed speech, denies pain. Start of shift on 3L/min NC, able to tirate off O2 for now, SaO2 on 1L/min NC 95%. Fine crackles anteriorly to upper lobes bilat, dim throughout. RR WNL. Intermittent dry cough. VSS. Purewick in place draining clear yellow urine. POC 223 4units lispro, 231 4-units lispro, 231-4units lispro. Eating most of meals. Takes pills crushed in apple sauce. NSR 80-90s, 2+ pitting left pedal edema. Skin intact, up to chair multiple times today x1 assist mild-mod weak.
[2021-01-02 20:28] LABS: Glucose, Whole Blood 279 mg/dL (60-115)
[2021-01-03] VITALS (12 sets, daily range): BP systolic 82–140; BP diastolic 57–75; PULSE 68–146; RESP 16–20; TEMP 36.1–36.6; O2SAT 91–97
--- NOTE | 2021-01-03 | ECG_ITS ---
Test Reason : CHEST PAIN Blood Pressure : / mmHG Vent. Rate : 093 BPM Atrial Rate : 093 BPM P-R Int : 130 ms QRS Dur : 074 ms QT Int : 336 ms P-R-T Axes : 055 024 029 degrees QTc Int : 417 ms Normal sinus rhythm Normal ECG When compared with ECG of 27-DEC-2020 08:39, Rhythm change; due to poor quality of prior EKG, cannot compare Referred By: Martha Coffman Electronically Signed By:SEBASTIAN CAMERON
--- NOTE | 2021-01-03 | ECG_ITS ---
Test Reason : tachycardia Blood Pressure : / mmHG Vent. Rate : 152 BPM Atrial Rate : 138 BPM P-R Int : 000 ms QRS Dur : 070 ms QT Int : 250 ms P-R-T Axes : 000 026 020 degrees QTc Int : 397 ms Atrial fibrillation with rapid ventricular response Nonspecific ST abnormality Abnormal ECG When compared to the previous EKG of 03 jan 2021, rhythm change Referred By: Herberth Ross Electronically Signed By:SEBASTIAN CAMERON
[2021-01-03] MEDS: Levothyroxine Sodium 100 MCG TABLET PO (06:07)
[2021-01-03 06:10] LABS: MANUAL DIFF FLAG NO
[2021-01-03 06:14] LABS: Basophils Absolute Auto 0.1 X10*3/uL (0.0-0.2); Basophils Percent Auto 0.3 % (0-2); Eosinophils Percent Auto 0.1 % (0-4); Hematocrit 43.6 % (37-47); Hemoglobin 14.4 g/dl (12.0-16.0); Imm Gran Abs Auto 0.59 X10*3/uL (0.00-0.03); Lymphocytes Absolute Auto 0.9 X10*3/uL (1.2-4.9); Mean Corpuscular Volume 93.8 fL (80-98); Mean Platelet Volume 11.6 fL (9.4-12.3); Monocytes Absolute Auto 1.4 X10*3/uL (0.1-1.2); Monocytes Percent Auto 9.1 % (2-11); Neutrophils Percent Auto 80.5 % (45-73); Platelet Count 661 X10*3/uL (160-400); Red Blood Count 4.65 X10*6/uL (4.20-5.50); White Blood Count 14.9 X10*3/uL (4.8-10.8)
[2021-01-03 06:43] LABS: Anion Gap 18 (12-20); Blood Urea Nitrogen 55 mg/dL (9-16); Calcium 9.2 mg/dL (8.4-10.2); Carbon Dioxide 23 mmol/L (22-29); Chloride 104 mmol/L (96-108); Creatinine Clr Calc Pharmacy 54.7; Estimated Glomerular Filt Rate > 60; Glucose Fasting 259 mg/dL (60-99); Sodium 139 mmol/L (135-145)
[2021-01-03 06:52] LABS: NRBC Pct Auto 2.1 /100WBC (0.0-0.2)
[2021-01-03 07:19] LABS: Glucose, Whole Blood 276 mg/dL (60-115)
[2021-01-03] MEDS: Enoxaparin Sodium 40 MG/0.4 ML SYRINGE SUBCUT (08:11)
[2021-01-03] MEDS: dexAMETHasone sod phosphate 4 MG/ML VIAL 6 MG IVPUSH (08:12)
[2021-01-03] MEDS: dilTIAZem HCL CD 180 MG CAP.ER.24H PO (08:12)
[2021-01-03] MEDS: metFORMIN HCl 500 MG TABLET PO ×2 (08:12→16:10)
[2021-01-03] MEDS: Atorvastatin Calcium 20 MG TABLET PO (08:12)
[2021-01-03] MEDS: Insulin Lispro 100 UNIT/ML 3 ML VIAL SUBCUT ×4 (08:12→21:06)
[2021-01-03] MEDS: Tacrolimus 0.5 MG CAPSULE PO ×2 (08:12→21:06)
[2021-01-03] MEDS: Furosemide 20 MG TABLET PO (08:12)
[2021-01-03] MEDS: allopurinoL 300 MG TABLET PO (08:13)
[2021-01-03] MEDS: mycophenolate mofetiL 250 MG CAPSULE PO ×2 (08:13→21:06)
[2021-01-03] MEDS: 0.9 % Sodium Chloride Flush 3 ML SYRINGE IVFLUSH ×2 (08:13→16:10)
[2021-01-03] MEDS: Aspirin Enteric Coated 81 MG TABLET.DR PO (08:13)
[2021-01-03] MEDS: Sodium Polystyrene Sulfon/Sorb 15 GM/60 ML ORAL.SUSP 30 GM PO ×2 (08:21→18:11)
[2021-01-03] MEDS: Insulin Glargine,Hum.rec.anlog 100 UNIT/ML 10 ML VIAL 10 UNIT SUBCUT (08:21)
[2021-01-03 08:39] LABS: Estimated Average Glucose 183 mg/dL
[2021-01-03 11:15] LABS: Glucose, Whole Blood 253 mg/dL (60-115)
--- NOTE | 2021-01-03 14:47 | CONS_ITS ---
DATE OF SERVICE: 01/03/2021 REASON FOR CONSULTATION: I was called to see this patient to assist in the management of hyperkalemia. HISTORY OF PRESENT ILLNESS: To summarize, Seema is a 65-year-old woman with a history of COVID-19 back in December 22 against the backdrop of liver transplantation back in 2000. She was admitted because of hypoxia and she is being treated for the same. She also underwent chemotherapy in the past for breast cancer and this is under the treatment of Dr. Coto. She has had significant thrombocytopenia with the platelet count of around 671 and there has been an elevated serum potassium levels and hence this consultation. The serum creatinine has been stable within the normal range of 0.92 mg/dL. She had an EKG, which did not show any significant changes suggestive of hyperkalemia, although there was some elevated T-waves, but this seems to be unchanged from the previous EKGs. PAST MEDICAL HISTORY: Ongoing medical problems include hypertension, liver transplantation back in 2000, hyperlipidemia, hypothyroidism, intellectual disability, diabetes mellitus, gout. PAST SURGICAL HISTORY: Includes radical mastectomy back in September 2020, splenectomy, and lumpectomy. SOCIAL HISTORY: No history of smoking or alcohol abuse. FAMILY HISTORY: Not significant for any kidney disease. REVIEW OF SYSTEMS: No headache, nausea, or vomiting. No abdominal pain, diarrhea, or constipation. No urinary symptoms. PHYSICAL EXAMINATION: GENERAL: The patient is a middle-aged woman, who is comfortable, not in any distress. NECK: Supple. No JVD. VITAL SIGNS: Blood pressure was 110/60, pulse 102. She is afebrile. NECK: Supple. No JVD. LUNGS: Air entry equal. No rales. HEART: No gallop or rub. ABDOMEN: Soft, nontender. EXTREMITIES: No edema. LABORATORY DATA: Sodium 139, potassium 6.2, CO2 of 23, BUN 55, creatinine 0.92, blood sugar 259. Urine studies done about a month ago was unremarkable. Hemoglobin 14.4, platelets 661. EKG was reviewed. IMPRESSION: 65-year-old woman with normal serum creatinine, has hyperkalemia with thrombocytosis. The differential diagnosis certainly includes pseudohyperkalemia due to thrombocytosis. RECOMMENDATIONS: My recommendation will be to obtain a plasma potassium level to confirm this. If she has true hyperkalemia, then we will keep her on low-potassium diet and treat her medically with Lokelma. Until this is resolved, we will hold the lisinopril as well. I will discuss with the team. Martin Carlos MD BPA/MODL / [id number]
[2021-01-03 14:55] LABS: Anion Gap 20 (12-20); Blood Urea Nitrogen 60 mg/dL (9-16); C Reactive Protein 1.06 mg/dL (< or = 0.50); Calcium 9.1 mg/dL (8.4-10.2); Carbon Dioxide 20 mmol/L (22-29); Chloride 105 mmol/L (96-108); Creatinine Clr Calc Pharmacy 41.3; Estimated Glomerular Filt Rate 44; Glucose Random 397 mg/dL (60-115); Lactate Dehydrogenase 545 U/L (122-220); Potassium 5.8 mmol/L (3.3-5.1); Sodium 139 mmol/L (135-145)
--- NOTE | 2021-01-03 15:08 | HO.PM.IMPN ---
Subjective Subjective Date of Service: 01/03/21 Interval History: weaned off O2 overnight denies complaints though looks very weak developmental delayed Physical Exam Vital Signs: Vital Signs: Last Vital Signs Temp 97 F 01/03/21 10:57 Pulse 102 H 01/03/21 12:34 Resp 18 01/03/21 10:57 BP 100/67 01/03/21 12:34 Pulse Ox 93 01/03/21 12:34 Body Mass Index 27.8 Gen: in no acute distress HEENT: sclera anicteric, moist mucus membranes Neck: supple Lungs: no respiratory distress, auscultation deferred due to COVID-19 Heart: normal peripheral pulses Abd: soft, non-tender, non-distended Ext: no cyanosis, clubbing, or edema Skin: warm/well-perfused Neuro: alert and oriented x3, no focal findings Psych: impaired insight Objective Data Current Medications Generic Name Dose Route Start Last Admin Trade Name Freq PRN Reason Stop Dose Admin Allopurinol 300 mg 12/28/20 09:00 01/03/21 08:13 Allopurinol 300 Mg Tablet PO 300 mg DAILY TAMMY Administration Aspirin 81 mg 12/28/20 09:00 01/03/21 08:13 Aspirin Enteric Coated 81 Mg Tablet.Dr PO 81 mg DAILY TAMMY Administration Atorvastatin Calcium 20 mg 12/28/20 09:00 01/03/21 08:12 Atorvastatin Calcium 20 Mg Tablet PO 20 mg DAILY TAMMY Administration Dexamethasone Sodium Phosphate 6 mg 12/28/20 09:00 01/03/21 08:12 Dexamethasone Sod Phosphate 4 Mg/Ml Vial IVPUSH 6 mg DAILY TAMMY Administration Diltiazem HCl 180 mg 12/28/20 09:00 01/03/21 08:12 Diltiazem Hcl Cd 180 Mg Cap.Er.24h PO 180 mg DAILY REPLACED BY [facility] Administration Protocol Enoxaparin Sodium 40 mg 12/31/20 08:00 01/03/21 08:11 Enoxaparin Sodium 40 Mg/0.4 Ml Syringe SUBCUT 40 mg Q24H TAMMY Administration Furosemide 20 mg 12/28/20 09:00 01/03/21 08:12 Furosemide 20 Mg Tablet PO 20 mg DAILY REPLACED BY [facility] Administration Protocol Insulin Glargine 10 unit 01/03/21 09:00 01/03/21 08:21 Insulin Glargine,Hum.Rec.Anlog 100 Unit/Ml 10 Ml Vial SUBCUT 10 unit DAILY TAMMY Administration Insulin Human Lispro 0 unit 12/28/20 11:30 01/03/21 12:12 Insulin Lispro 100 Unit/Ml 3 Ml Vial SUBCUT 6 unit QIDACHS TAMMY Administration Protocol Levothyroxine Sodium 100 mcg 12/28/20 09:00 01/03/21 06:07 Levothyroxine Sodium 100 Mcg Tablet PO 100 mcg DAILY@0600 TAMMY Administration Metformin HCl 500 mg 12/28/20 09:00 01/03/21 08:12 Metformin Hcl 500 Mg Tablet PO 500 mg BIDWM TAMMY Administration Mycophenolate Mofetil 250 mg 12/28/20 09:00 01/03/21 08:13 Mycophenolate Mofetil 250 Mg Capsule PO 250 mg BID TAMMY Administration Pharmacy Consult 1 each 12/27/20 12:31 Consult Rx Perform Med Rec MISCELLANE ONCE PRN Consult order Sodium Chloride 3 ml 12/27/20 16:00 01/03/21 08:13 0.9 % Sodium Chloride Flush 3 Ml Syringe IVFLUSH 3 ml QSHIFT TAMMY Administration Tacrolimus 0.5 mg 12/28/20 09:00 01/03/21 08:12 Tacrolimus 0.5 Mg Capsule PO 0.5 mg BID TAMMY Administration Labs CBC & Chem 7: 01/03/21 05:24 01/03/21 14:17 Microbiology Microbiology Results: Microbiology 12/27/20 11:21 Blood - Venous Blood Culture - Final No growth after 5 days. 12/27/20 08:54 Blood - Venous Blood Culture - Final No growth after 5 days. Assessment and Plan (1) Pneumonia due to COVID-19 virus: Status: Acute Assessment and Plan: hospital d#8 65yo F with liver transplant on MMF + tacrolimus, breast CA on chemotherapy, developmental delay admitted for hypoxia due to COVID-19 # COVID-19 pneumonia - s/p remdesivir x5d, on dexamethasone d#07/05 # acute hypoxic resp failure - wean O2 as tolerated, encourage awake proning # hyperkalemia - thought pseudohyperkalemia due to thrombocytosis, possibly tacrolimus effect contributing; no EKG changes - K 5.8 in heparinized tube; Kayexelate given. Nephrology consult # thrombocytosis - could be due to COVID-19 vs CA - monitor CBCd # hx liver txp - continue tacrolimus + MMF # DM2, A1c 8, with steroid-induced hyperglycemia - continue MTF, add Lantus, continue correction-dose Humalog, DM2 diet # hypothyroidism - continue LT4 # gout - continue allopurinol # HTN - continue diltiazem # HLD - continue statin # breast CA - f/u with Dr Coto as outpt # VTE ppx - LMWH # dispo - PT consult done, recommend STR due to weakness/imbalance. spoke to pt's brother/HCP Chuck and updated by phone [phone].
[2021-01-03 15:22] LABS: Ferritin 1067 ng/mL (10-250)
[2021-01-03 15:52] LABS: Procalcitonin 0.16 ng/mL
[2021-01-03] MEDS: Insulin Glargine,Hum.rec.anlog 100 UNIT/ML 10 ML VIAL 8 UNIT SUBCUT (16:10)
[2021-01-03 16:52] LABS: Glucose, Whole Blood 343 mg/dL (60-115)
[2021-01-03] MEDS: Metoprolol Tartrate 5 MG/5 ML VIAL IVPUSH ×2 (20:07→21:05)
[2021-01-03 20:43] LABS: Glucose, Whole Blood 207 mg/dL (60-115)
[2021-01-03] MEDS: Lactated Ringers 1,000 ML 999 ML IVCONT (23:00)
[2021-01-04] VITALS (12 sets, daily range): BP systolic 106–174; BP diastolic 58–82; PULSE 84–168; RESP 18–20; TEMP 36.1–36.8; O2SAT 90–95
[2021-01-04 00:47] LABS: Potassium 6.2 mmol/L (3.3-5.1)
[2021-01-04] MEDS: 0.9 % Sodium Chloride Flush 3 ML SYRINGE IVFLUSH ×3 (01:06→15:53)
[2021-01-04] MEDS: Levothyroxine Sodium 100 MCG TABLET PO (04:52)
[2021-01-04 06:18] LABS: Basophils Percent Auto 0.2 % (0-2); Hematocrit 40.4 % (37-47); Hemoglobin 13.4 g/dl (12.0-16.0); Imm Gran Abs Auto 0.36 X10*3/uL (0.00-0.03); Imm Gran Pct Auto 2.6 % (0.0-0.4); Lymphocytes Percent Auto 7.1 % (20-40); MANUAL DIFF FLAG SCAN; Mean Corpuscular HGB Conc 33.2 g/dl (31.0-35.0); Mean Corpuscular Hemoglobin 31.4 pg (27.0-33.0); Mean Corpuscular Volume 94.6 fL (80-98); Mean Platelet Volume 11.6 fL (9.4-12.3); Monocytes Absolute Auto 1.9 X10*3/uL (0.1-1.2); Monocytes Percent Auto 13.3 % (2-11); Neutrophils Absolute Auto 10.8 X10*3/uL (2.0-8.3); Neutrophils Percent Auto 76.8 % (45-73); Platelet Count 603 X10*3/uL (160-400); Red Blood Count 4.27 X10*6/uL (4.20-5.50); SCAN SMEAR FLAG 1
[2021-01-04 06:24] LABS: Anion Gap 13 (12-20); Blood Urea Nitrogen 50 mg/dL (9-16); Calcium 8.7 mg/dL (8.4-10.2); Carbon Dioxide 32 mmol/L (22-29); Chloride 103 mmol/L (96-108); Creatinine Clr Calc Pharmacy 59.2; Estimated Glomerular Filt Rate > 60; Glucose Random 250 mg/dL (60-115); Potassium 5.3 mmol/L (3.3-5.1); Sodium 143 mmol/L (135-145)
[2021-01-04 06:43] LABS: NRBC Pct Auto 1.7 /100WBC (0.0-0.2)
[2021-01-04 07:08] LABS: SLIDE REVIEW VERIFIED
[2021-01-04 08:26] LABS: Glucose, Whole Blood 253 mg/dL (60-115)
[2021-01-04] MEDS: Insulin Lispro 100 UNIT/ML 3 ML VIAL SUBCUT ×4 (08:57→21:19)
[2021-01-04] MEDS: Insulin Glargine,Hum.rec.anlog 100 UNIT/ML 10 ML VIAL 22 UNIT SUBCUT (08:58)
[2021-01-04] MEDS: dexAMETHasone sod phosphate 4 MG/ML VIAL 6 MG IVPUSH (08:59)
[2021-01-04] MEDS: Enoxaparin Sodium 40 MG/0.4 ML SYRINGE SUBCUT (08:59)
[2021-01-04] MEDS: metFORMIN HCl 500 MG TABLET PO ×2 (09:00→17:05)
[2021-01-04] MEDS: Atorvastatin Calcium 20 MG TABLET PO (09:00)
[2021-01-04] MEDS: mycophenolate mofetiL 250 MG CAPSULE PO ×2 (09:00→21:20)
[2021-01-04] MEDS: Furosemide 20 MG TABLET PO (09:00)
[2021-01-04] MEDS: allopurinoL 300 MG TABLET PO (09:00)
[2021-01-04] MEDS: Tacrolimus 0.5 MG CAPSULE PO ×2 (09:00→21:20)
--- NOTE | 2021-01-04 09:08 | ECG_ITS ---
Test Reason : sustaining 140s Blood Pressure : / mmHG Vent. Rate : 145 BPM Atrial Rate : 249 BPM P-R Int : 000 ms QRS Dur : 072 ms QT Int : 306 ms P-R-T Axes : 000 007 -17 degrees QTc Int : 475 ms Atrial flutter with variable A-V block vs atrial fibrillation Abnormal ECG No significant changes when compared with the previous EKG of 03 jan 2021 Referred By: Martha Coffman Electronically Signed By:SEBASTIAN CAMERON
--- NOTE | 2021-01-04 09:45 | PM.PNNEP ---
Subjective Subjective Date of Service: 01/04/21 Interval history: Events noted Feeling OK Wants to go home Physical Exam Vital Signs: Vital Signs: Last Vital Signs Temp 97.9 F 01/04/21 08:00 Pulse 142 H 01/04/21 08:00 Resp 20 01/04/21 08:00 BP 115/68 01/04/21 08:00 Pulse Ox 93 01/04/21 08:00 Body Mass Index 27.8 Const: General: awake Neck: Neck: No supple Resp: Auscultation: clear to auscultation bilaterally Cardio: Heart sounds: no rubs Neuro: Motor exam (neuro): No Asterixis during motor activity present Objective Data Labs CBC & Chem 7: 01/04/21 05:28 01/04/21 05:28 Labs: Laboratory Results - last 24 hr 01/01/21 01/03/21 01/03/21 05:48 05:24 10:57 WBC RBC Hgb Hct MCV MCH MCHC RDW Plt Count MPV Immature Gran % (Auto) Neut % (Auto) Lymph % (Auto) [place] % (Auto) Eos % (Auto) Baso % (Auto) Lymph # (Auto) [place] # (Auto) Eos # (Auto) Baso # (Auto) Abs Immat Gran (auto) Absolute Neuts (auto) Absolute Nucleated RBC Nucleated RBC % (auto) Smear Tech's Comments Smear Path Review SEE NOTE Sodium Potassium 6.2 H* Chloride Carbon Dioxide Anion Gap BUN Creatinine Estim Creat Clear Calc Estimated GFR POC Glucose 253 H Random Glucose Calcium Ferritin Lactate Dehydrogenase C-Reactive Protein Procalcitonin 01/03/21 01/03/21 01/03/21 14:17 14:17 16:44 WBC RBC Hgb Hct MCV MCH MCHC RDW Plt Count MPV Immature Gran % (Auto) Neut % (Auto) Lymph % (Auto) [place] % (Auto) Eos % (Auto) Baso % (Auto) Lymph # (Auto) [place] # (Auto) Eos # (Auto) Baso # (Auto) Abs Immat Gran (auto) Absolute Neuts (auto) Absolute Nucleated RBC Nucleated RBC % (auto) Smear Tech's Comments Smear Path Review Sodium 139 Potassium 5.8 H Chloride 105 Carbon Dioxide 20 L Anion Gap 20 BUN 60 H Creatinine 1.22 Estim Creat Clear Calc 41.3 Estimated GFR 44 POC Glucose 343 H Random Glucose 397 H* Calcium 9.1 Ferritin 1067 H Lactate Dehydrogenase 545 H C-Reactive Protein 1.06 H Procalcitonin 0.16 01/03/21 01/04/21 01/04/21 20:36 05:28 05:28 WBC 14.0 H RBC 4.27 Hgb 13.4 Hct 40.4 MCV 94.6 MCH 31.4 MCHC 33.2 RDW 15.0 Plt Count 603 H MPV 11.6 Immature Gran % (Auto) 2.6 H Neut % (Auto) 76.8 H Lymph % (Auto) 7.1 L [place] % (Auto) 13.3 H Eos % (Auto) 0.0 Baso % (Auto) 0.2 Lymph # (Auto) 1.0 L [place] # (Auto) 1.9 H Eos # (Auto) 0.0 Baso # (Auto) 0.0 Abs Immat Gran (auto) 0.36 H Absolute Neuts (auto) 10.8 H Absolute Nucleated RBC 0.240 H Nucleated RBC % (auto) 1.7 H Smear Tech's Comments VERIFIED Smear Path Review Sodium 143 Potassium 5.3 H Chloride 103 Carbon Dioxide 32 H Anion Gap 13 BUN 50 H Creatinine 0.85 Estim Creat Clear Calc 59.2 Estimated GFR > 60 POC Glucose 207 H Random Glucose 250 H D Calcium 8.7 Ferritin Lactate Dehydrogenase C-Reactive Protein Procalcitonin 01/04/21 08:20 WBC RBC Hgb Hct MCV MCH MCHC RDW Plt Count MPV Immature Gran % (Auto) Neut % (Auto) Lymph % (Auto) [place] % (Auto) Eos % (Auto) Baso % (Auto) Lymph # (Auto) [place] # (Auto) Eos # (Auto) Baso # (Auto) Abs Immat Gran (auto) Absolute Neuts (auto) Absolute Nucleated RBC Nucleated RBC % (auto) Smear Tech's Comments Smear Path Review Sodium Potassium Chloride Carbon Dioxide Anion Gap BUN Creatinine Estim Creat Clear Calc Estimated GFR POC Glucose 253 H Random Glucose Calcium Ferritin Lactate Dehydrogenase C-Reactive Protein Procalcitonin Microbiology Microbiology Results: Microbiology 12/27/20 11:21 Blood - Venous Blood Culture - Final No growth after 5 days. 12/27/20 08:54 Blood - Venous Blood Culture - Final No growth after 5 days. Assessment & Plan Assessment and plan (1) Hyperkalemia: Problem details: Most likely has Pseudo hyperkalemia due to thrombocytosis No EKG changes suggestive of HyperK Check PLASMA Potassium to confirm pseudohyperkalemia Mild CKd Cr is better Status: Acute Time Spent With Patient Time: Total time spent is greater than 50% in coordination of care (as documented) at patient's floor/unit and/or counseling patient:
--- NOTE | 2021-01-04 10:03 | P.PNIM_ITS ---
Subjective Subjective Date of Service: 01/04/21 Interval History: developed AF/RVR which as far as I can tell is new for her pt denies any symptoms of palpitations, lightheadedness, chest pressure, or dyspnea; just wants to go home Physical Exam Vital Signs: Vital Signs: Last Vital Signs Temp 97.9 F 01/04/21 08:00 Pulse 142 H 01/04/21 08:00 Resp 20 01/04/21 08:00 BP 115/68 01/04/21 08:00 Pulse Ox 93 01/04/21 08:00 Body Mass Index 27.8 Gen: in no acute distress HEENT: sclera anicteric, moist mucus membranes Neck: supple Lungs: no respiratory distress, auscultation deferred due to COVID-19 Heart: irregularly irregular, rapid Abd: soft, non-tender, non-distended Ext: no cyanosis, clubbing, or edema Skin: warm/well-perfused Neuro: alert and oriented x3, no focal findings Psych: impaired insight Objective Data Current Medications Generic Name Dose Route Start Last Admin Trade Name Kee PRN Reason Stop Dose Admin Allopurinol 300 mg 12/28/20 09:00 01/04/21 09:00 Allopurinol 300 Mg Tablet PO 300 mg DAILY TAMMY Administration Aspirin 81 mg 12/28/20 09:00 01/04/21 09:00 Aspirin Enteric Coated 81 Mg Tablet. PO Not Given DAILY TAMMY Atorvastatin Calcium 20 mg 12/28/20 09:00 01/04/21 09:00 Atorvastatin Calcium 20 Mg Tablet PO 20 mg DAILY TAMMY Administration Dexamethasone Sodium Phosphate 6 mg 12/28/20 09:00 01/04/21 08:59 Dexamethasone Sod Phosphate 4 Mg/Ml Vial IVPUSH 6 mg DAILY TAMMY Administration Diltiazem HCl 180 mg 12/28/20 09:00 01/03/21 08:12 Diltiazem Hcl Cd 180 Mg Cap.Er.24h PO 180 mg DAILY TAMMY Administration Protocol Enoxaparin Sodium 40 mg 12/31/20 08:00 01/04/21 08:59 Enoxaparin Sodium 40 Mg/0.4 Ml Syringe SUBCUT 40 mg Q24H TAMMY Administration Furosemide 20 mg 12/28/20 09:00 01/04/21 09:00 Furosemide 20 Mg Tablet PO 20 mg DAILY TAMMY Administration Protocol Diltiazem HCl 125 mg/ Sodium 125 mls @ 0 mls/hr 01/03/21 22:00 Chloride IVCONT .Q0M [facility] Protocol Per Protocol Insulin Glargine 22 unit 01/04/21 09:00 01/04/21 08:58 Insulin Glargine,Hum.Rec.Anlog 100 Unit/Ml 10 Ml Vial SUBCUT 22 unit DAILY TAMMY Administration Insulin Human Lispro 0 unit 12/28/20 11:30 01/04/21 08:57 Insulin Lispro 100 Unit/Ml 3 Ml Vial SUBCUT 7 unit QIDACHS TAMMY Administration Protocol Levothyroxine Sodium 100 mcg 12/28/20 09:00 01/04/21 04:52 Levothyroxine Sodium 100 Mcg Tablet PO 100 mcg DAILY@0600 TAMMY Administration Metformin HCl 500 mg 12/28/20 09:00 01/04/21 09:00 Metformin Hcl 500 Mg Tablet PO 500 mg BIDWM TAMMY Administration Metoprolol Tartrate 5 mg 01/03/21 20:00 01/03/21 20:07 Metoprolol Tartrate 5 Mg/5 Ml Vial IVPUSH 5 mg Q6H PRN Administration Heart Rate >110 Mycophenolate Mofetil 250 mg 12/28/20 09:00 01/04/21 09:00 Mycophenolate Mofetil 250 Mg Capsule PO 250 mg BID [facility] Administration Pharmacy Consult 1 each 12/27/20 12:31 Consult Rx Perform Med Rec MISCELLANE ONCE PRN Consult order Sodium Chloride 3 ml 12/27/20 16:00 01/04/21 08:59 0.9 % Sodium Chloride Flush 3 Ml Syringe IVFLUSH 3 ml QSHIFT TAMMY Administration Tacrolimus 0.5 mg 12/28/20 09:00 01/04/21 09:00 Tacrolimus 0.5 Mg Capsule PO 0.5 mg BID TAMMY Administration Labs CBC & Chem 7: 01/04/21 05:28 01/04/21 05:28 Labs: Laboratory Results - last 24 hr 01/01/21 01/03/21 01/03/21 05:48 05:24 10:57 WBC RBC Hgb Hct MCV MCH MCHC RDW Plt Count MPV Immature Gran % (Auto) Neut % (Auto) Lymph % (Auto) [place] % (Auto) Eos % (Auto) Baso % (Auto) Lymph # (Auto) [place] # (Auto) Eos # (Auto) Baso # (Auto) Abs Immat Gran (auto) Absolute Neuts (auto) Absolute Nucleated RBC Nucleated RBC % (auto) Smear Tech's Comments Smear Path Review SEE NOTE Sodium Potassium 6.2 H* Chloride Carbon Dioxide Anion Gap BUN Creatinine Estim Creat Clear Calc Estimated GFR POC Glucose 253 H Random Glucose Calcium Ferritin Lactate Dehydrogenase C-Reactive Protein Procalcitonin 01/03/21 01/03/21 01/03/21 14:17 14:17 16:44 WBC RBC Hgb Hct MCV MCH MCHC RDW Plt Count MPV Immature Gran % (Auto) Neut % (Auto) Lymph % (Auto) [place] % (Auto) Eos % (Auto) Baso % (Auto) Lymph # (Auto) [place] # (Auto) Eos # (Auto) Baso # (Auto) Abs Immat Gran (auto) Absolute Neuts (auto) Absolute Nucleated RBC Nucleated RBC % (auto) Smear Tech's Comments Smear Path Review Sodium 139 Potassium 5.8 H Chloride 105 Carbon Dioxide 20 L Anion Gap 20 BUN 60 H Creatinine 1.22 Estim Creat Clear Calc 41.3 Estimated GFR 44 POC Glucose 343 H Random Glucose 397 H* Calcium 9.1 Ferritin 1067 H Lactate Dehydrogenase 545 H C-Reactive Protein 1.06 H Procalcitonin 0.16 01/03/21 01/04/21 01/04/21 20:36 05:28 05:28 WBC 14.0 H RBC 4.27 Hgb 13.4 Hct 40.4 MCV 94.6 MCH 31.4 MCHC 33.2 RDW 15.0 Plt Count 603 H MPV 11.6 Immature Gran % (Auto) 2.6 H Neut % (Auto) 76.8 H Lymph % (Auto) 7.1 L [place] % (Auto) 13.3 H Eos % (Auto) 0.0 Baso % (Auto) 0.2 Lymph # (Auto) 1.0 L [place] # (Auto) 1.9 H Eos # (Auto) 0.0 Baso # (Auto) 0.0 Abs Immat Gran (auto) 0.36 H Absolute Neuts (auto) 10.8 H Absolute Nucleated RBC 0.240 H Nucleated RBC % (auto) 1.7 H Smear Tech's Comments VERIFIED Smear Path Review Sodium 143 Potassium 5.3 H Chloride 103 Carbon Dioxide 32 H Anion Gap 13 BUN 50 H Creatinine 0.85 Estim Creat Clear Calc 59.2 Estimated GFR > 60 POC Glucose 207 H Random Glucose 250 H D Calcium 8.7 Ferritin Lactate Dehydrogenase C-Reactive Protein Procalcitonin 01/04/21 08:20 WBC RBC Hgb Hct MCV MCH MCHC RDW Plt Count MPV Immature Gran % (Auto) Neut % (Auto) Lymph % (Auto) [place] % (Auto) Eos % (Auto) Baso % (Auto) Lymph # (Auto) [place] # (Auto) Eos # (Auto) Baso # (Auto) Abs Immat Gran (auto) Absolute Neuts (auto) Absolute Nucleated RBC Nucleated RBC % (auto) Smear Tech's Comments Smear Path Review Sodium Potassium Chloride Carbon Dioxide Anion Gap BUN Creatinine Estim Creat Clear Calc Estimated GFR POC Glucose 253 H Random Glucose Calcium Ferritin Lactate Dehydrogenase C-Reactive Protein Procalcitonin Microbiology Microbiology Results: Microbiology 12/27/20 11:21 Blood - Venous Blood Culture - Final No growth after 5 days. 12/27/20 08:54 Blood - Venous Blood Culture - Final No growth after 5 days. Assessment and Plan (1) Pneumonia due to COVID-19 virus: Status: Acute Assessment and Plan: hospital d#9 65yo F with liver transplant on MMF + tacrolimus, breast CA on chemotherapy, developmental delay admitted for hypoxia due to COVID-19 developed new-onset AF/RVR # AF/RVR - start diltiazem gtt, order TTE, consult Cardiology. will need AC- start apixaban. check TSH + Mg # COVID-19 pneumonia - s/p remdesivir x5d, on dexamethasone d#08/05 # acute hypoxic resp failure - wean O2 as tolerated, encourage awake proning # hyperkalemia - thought pseudohyperkalemia due to thrombocytosis, possibly tacrolimus effect contributing; no EKG changes. appreciate Nephrology consult # thrombocytosis - could be due to COVID-19 vs CA - monitor CBCd # hx liver txp - continue tacrolimus + MMF # DM2, A1c 8, with steroid-induced hyperglycemia - continue MTF, increase Lantus, continue correction-dose Humalog, DM2 diet # hypothyroidism - continue LT4 # gout - continue allopurinol # HTN - on diltiazem gtt [was on PO diltiazem as outpt] # HLD - continue statin # breast CA - f/u with Dr Coto as outpt # VTE ppx - apixaban # dispo - PT consult done, recommend STR due to weakness/imbalance. spoke to pt's brother/HCP Chuck and updated by phone [phone].
[2021-01-04] MEDS: dilTIAZem HCL 125 MG in 0.9 % Sodium Chloride 100 ML 10 MG IVCONT (10:19)
[2021-01-04 10:45] LABS: Magnesium 1.9 mg/dL (1.6-2.6)
--- NOTE | 2021-01-04 10:46 | PC.NURSE ---
Addendum entered by Ledy Brown RN 01/04/21 14:33: MD made aware patient heart rate still sustaining in the upper 140s afib. New order for IV Digoxin at 1200. Med administered and patient heart rate sustaining in the mid-high 120s , asymptomatic. Cardio consulted and new order for anticoag tonight. Original Note: Patient heart rate sustaining 130s to 160s, blood pressure 1 teens over 80, asymptomatic otherwise. STAT ekg ordered and MD made aware. Patient had converted overnights from SR-AF and back to SR after fluid bolus for low BP so the cardizem drip was not started. MD orders to start cardizem drip at 1015 with starting rate 10mg/hr and titrate by 5mg/hr to HR<120 Q15. Education given to patient and drip titrated to max dose of 15mg/hr at 1045, HR currently 142 and dipping down to low 120s.
[2021-01-04 11:34] LABS: Glucose, Whole Blood 304 mg/dL (60-115)
[2021-01-04] MEDS: Digoxin 0.5 MG/2 ML AMPUL 0.25 MG IVPUSH ×2 (12:20→17:04)
[2021-01-04 16:53] LABS: Glucose, Whole Blood 140 mg/dL (60-115)
[2021-01-04] MEDS: dilTIAZem HCL 50 MG/10 ML VIAL 10 MG IVPUSH (18:05)
[2021-01-04] MEDS: dilTIAZem HCL 125 MG in 0.9 % Sodium Chloride 100 ML 15 MG IVCONT (18:46)
[2021-01-04 21:18] LABS: Glucose, Whole Blood 278 mg/dL (60-115)
[2021-01-04] MEDS: Apixaban 5 MG TABLET PO (21:20)
[2021-01-05] VITALS (13 sets, daily range): BP systolic 90–144; BP diastolic 52–97; PULSE 69–143; RESP 18–20; TEMP 35.8–36.8; O2SAT 93–96
[2021-01-05] MEDS: 0.9 % Sodium Chloride Flush 3 ML SYRINGE IVFLUSH ×3 (00:40→21:26)
[2021-01-05] MEDS: Metoprolol Tartrate 5 MG/5 ML VIAL IVPUSH (01:29)
[2021-01-05] MEDS: dilTIAZem HCL 125 MG in 0.9 % Sodium Chloride 100 ML 15 MG IVCONT ×3 (03:32→16:59)
--- NOTE | 2021-01-05 04:41 | PC.NURSE ---
Patient HR 120's and sustaining at change of shift. Pt given 5mg IV metoprolol - no effect. Patient's HR remained in the 120's, A.Flutter on tele. Dr. Ross notifed via [employer]. Will continue to monitor.
[2021-01-05] MEDS: Levothyroxine Sodium 88 MCG TABLET PO (05:19)
[2021-01-05 07:27] LABS: Glucose, Whole Blood 185 mg/dL (60-115)
[2021-01-05] MEDS: Insulin Lispro 100 UNIT/ML 3 ML VIAL SUBCUT ×4 (08:43→21:25)
[2021-01-05] MEDS: Enoxaparin Sodium 40 MG/0.4 ML SYRINGE SUBCUT (08:44)
[2021-01-05] MEDS: Apixaban 5 MG TABLET PO ×2 (08:50→21:25)
[2021-01-05] MEDS: Atorvastatin Calcium 20 MG TABLET PO (08:50)
[2021-01-05] MEDS: Tacrolimus 0.5 MG CAPSULE PO ×2 (08:50→21:25)
[2021-01-05] MEDS: allopurinoL 300 MG TABLET PO (08:50)
[2021-01-05] MEDS: metFORMIN HCl 500 MG TABLET PO ×2 (08:50→16:19)
[2021-01-05] MEDS: Insulin Glargine,Hum.rec.anlog 100 UNIT/ML 10 ML VIAL 24 UNIT SUBCUT (08:50)
[2021-01-05] MEDS: Aspirin Enteric Coated 81 MG TABLET.DR PO (08:50)
[2021-01-05] MEDS: dexAMETHasone sod phosphate 4 MG/ML VIAL 6 MG IVPUSH (08:50)
[2021-01-05] MEDS: mycophenolate mofetiL 250 MG CAPSULE PO ×2 (08:50→21:25)
--- NOTE | 2021-01-05 11:08 | P.PNIM_ITS ---
Subjective Subjective Date of Service: 01/05/21 Interval History: wants to go home still in AF with ventricular rate in 100s-110s on diltiazem gtt 15 mg/h denies dyspnea or cough Physical Exam Vital Signs: Vital Signs: Last Vital Signs Temp 96.5 F L 01/05/21 11:05 Pulse 110 H 01/05/21 11:05 Resp 20 01/05/21 11:05 BP 105/83 01/05/21 11:05 Pulse Ox 93 01/05/21 11:05 Body Mass Index 27.8 Gen: in no acute distress HEENT: sclera anicteric, moist mucus membranes Neck: supple Lungs: no respiratory distress, auscultation deferred due to COVID-19 Heart: irregularly irregular, rapid Abd: soft, non-tender, non-distended Ext: no cyanosis, clubbing, or edema Skin: warm/well-perfused Neuro: alert and oriented x3, no focal findings Psych: impaired insight Objective Data Current Medications Generic Name Dose Route Start Last Admin Trade Name Braedenq PRN Reason Stop Dose Admin Allopurinol 300 mg 12/28/20 09:00 01/05/21 08:50 Allopurinol 300 Mg Tablet PO 300 mg DAILY TAMMY Administration Apixaban 5 mg 01/04/21 21:00 01/05/21 08:50 Apixaban 5 Mg Tablet PO 5 mg BID TAMMY Administration Aspirin 81 mg 12/28/20 09:00 01/05/21 08:50 Aspirin Enteric Coated 81 Mg Tablet. PO 81 mg DAILY TAMMY Administration Atorvastatin Calcium 20 mg 12/28/20 09:00 01/05/21 08:50 Atorvastatin Calcium 20 Mg Tablet PO 20 mg DAILY TAMMY Administration Dexamethasone Sodium Phosphate 6 mg 12/28/20 09:00 01/05/21 08:50 Dexamethasone Sod Phosphate 4 Mg/Ml Vial IVPUSH 6 mg DAILY TAMMY Administration Enoxaparin Sodium 40 mg 12/31/20 08:00 01/05/21 08:44 Enoxaparin Sodium 40 Mg/0.4 Ml Syringe SUBCUT 40 mg Q24H TAMMY Administration Furosemide 20 mg 12/28/20 09:00 01/05/21 08:50 Furosemide 20 Mg Tablet PO Not Given DAILY TAMMY Protocol Diltiazem HCl 125 mg/ Sodium 125 mls @ 0 mls/hr 01/04/21 10:15 01/05/21 08:57 Chloride IVCONT 15 mg/hr .Q0M TAMMY 15 mls/hr Administration Protocol Per Protocol Insulin Glargine 24 unit 01/05/21 09:00 01/05/21 08:50 Insulin Glargine,Hum.Rec.Anlog 100 Unit/Ml 10 Ml Vial SUBCUT 24 unit DAILY TAMMY Administration Insulin Human Lispro 0 unit 12/28/20 11:30 01/05/21 08:43 Insulin Lispro 100 Unit/Ml 3 Ml Vial SUBCUT 3 unit QIDACHS [facility] Administration Protocol Levothyroxine Sodium 88 mcg 01/05/21 06:00 01/05/21 05:19 Levothyroxine Sodium 88 Mcg Tablet PO 88 mcg DAILY@0600 TAMMY Administration Metformin HCl 500 mg 12/28/20 09:00 01/05/21 08:50 Metformin Hcl 500 Mg Tablet PO 500 mg BIDWM TAMMY Administration Metoprolol Tartrate 5 mg 01/03/21 20:00 01/05/21 01:29 Metoprolol Tartrate 5 Mg/5 Ml Vial IVPUSH 5 mg Q6H PRN Administration Heart Rate >110 Mycophenolate Mofetil 250 mg 12/28/20 09:00 01/05/21 08:50 Mycophenolate Mofetil 250 Mg Capsule PO 250 mg BID [facility] Administration Pharmacy Consult 1 each 12/27/20 12:31 Consult Rx Perform Med Rec MISCELLANE ONCE PRN Consult order Sodium Chloride 3 ml 12/27/20 16:00 01/05/21 08:44 0.9 % Sodium Chloride Flush 3 Ml Syringe IVFLUSH 3 ml QSHIFT TAMMY Administration Tacrolimus 0.5 mg 12/28/20 09:00 01/05/21 08:50 Tacrolimus 0.5 Mg Capsule PO 0.5 mg BID TAMMY Administration Labs CBC & Chem 7: 01/04/21 05:28 01/04/21 05:28 Microbiology Microbiology Results: Microbiology 12/27/20 11:21 Blood - Venous Blood Culture - Final No growth after 5 days. 12/27/20 08:54 Blood - Venous Blood Culture - Final No growth after 5 days. 11/29/20 TTE - The left ventricular systolic function is normal. The visually estimated ejection fraction is between 60-65%. - No obvious valvular pathology seen on this study. Assessment and Plan (1) Pneumonia due to COVID-19 virus: Status: Acute Assessment and Plan: hospital d#10 65yo F with liver transplant on MMF + tacrolimus, breast CA on chemotherapy, developmental delay admitted for hypoxia due to COVID-19 developed new-onset AF/RVR # AF/RVR - remains on ditiazem gtt and also got 0.5 mg total IV digoxin yesterday. Cardiology consult. - started apixaban for AC - TSH 0.1; LT4 dose decreased # COVID-19 pneumonia - s/p remdesivir x5d, dexamethasone d#09/04 # acute hypoxic resp failure - wean O2 as tolerated, encourage awake proning # hyperkalemia - thought pseudohyperkalemia due to thrombocytosis, possibly tacrolimus effect contributing; no EKG changes. appreciate Nephrology consult # thrombocytosis - could be due to COVID-19 vs CA - monitor CBCd # hx liver txp - continue tacrolimus + MMF # DM2, A1c 8, with steroid-induced hyperglycemia - continue MTF, increase Lantus, continue correction-dose Humalog, DM2 diet # hypothyroidism - continue LT4, dose decreased from 100 to 88 mcg/d due to over-suppressed TSH; repeat TSH in 6 wk # gout - continue allopurinol # HTN - on diltiazem gtt [was on PO diltiazem as outpt] # HLD - continue statin # breast CA - f/u with Dr Coto as outpt # VTE ppx - apixaban # dispo - PT consult done, recommend STR due to weakness/imbalance.
--- NOTE | 2021-01-05 11:09 | P.CONCA_ITS ---
History of Present Illness History of Present Illness Date of Service: 01/05/21 Consult reason: atrial fibrillation Chief complaint: COVID PNA Narrative: This is a cardiology consultation regarding atrial fibrillation. Patient has a history of liver transplant as well as breast cancer and developmental delay. It appears that she came for COVID-19 pneumonia and r espiratory failure. In this setting, she has been in the hospital for few days. Yesterday, she developed atrial fibrillation with rapid ventricular rate and hence we have been asked to see her. When questioned, she does not have any active symptoms like chest pain or shortness of breath or palpitations. She has been on a Cardizem drip since yesterday and she has also received digoxin. Her rates are still in the faster side. Review of Systems Review of Systems: Yes all other systems are reviewed and are negative Cardiovascular: Cardiovascular: Reports as per HPI, Reports no additional cardiovascular complaints, Denies acrocyanosis, Denies cool extremities, Denies painful fingertips, Denies chest pain, Denies chest pain at rest, Denies d iaphoresis, Denies syncope, Denies irregular heart rhythm, Denies claudication, Denies leg edema, Denies lightheadedness, Denies palpitations and Denies dyspnea Respiratory: Respiratory: Denies dyspnea Neurologic: Denies syncope Endocrine: Endocrine: Denies palpitations PMFSH Past Medical History Medical History Abnormal ultrasound of breast Age-related osteoporosis without current pathological fracture MARIA ESTHER (acute kidney injury) Cerebral palsy Chronic kidney disease, stage 3 unspecified Class 1 obesity with body mass index (BMI) of 30.0 to 30.9 in adult Developmental disability Diabetes type 2, uncontrolled Ductal carcinoma in situ of left breast Essential (primary) hypertension Hyperlipidemia, unspecified Hypothyroidism, unspecified Invasive ductal carcinoma of left breast [employer] (current) use of insulin Type 2 diabetes mellitus with diabetic nephropathy Family History Family History Father Aneurysm Mother Cancer Paternal Grandfather Diabetes Brother No problems noted. Family history: reviewed and not pertinent Surgical History Surgical History History of breast surgery History of liver transplant History of modified radical mastectomy of left breast (~10/07/20) History of splenectomy S/P breast lumpectomy Social History Social History Household Members: Caregiver Housing: Apartment Do you presently have visiting nurse or other home services: No Alcohol intake: never Smoking Status: Never smoker Second Hand Smoke Exposure: No Use of substances other than those prescribed or required for medical reasons: No Currently Displaying Signs/Symptoms of Drug Intoxication Withdrawal: No Have you been hit, kicked, punched, or otherwise hurt by someone within the past year? If so, by whom?: No Do you feel safe in your current relationship?: No Current Relationship Is there a partner from a previous relationship who is making you feel unsafe now?: No Are you made to feel afraid or neglected: No Advance Directives: Yes Advance Directives Information Provided: No Advance Directives on File: No Advance Directives Date on File: 12/27/20 Do you have thoughts of harming others: None Do you have a plan to hurt others: No Plan Recently lost weight without trying: No service: No Current occupational status: disabled Meds Allergies Allergy/AdvReac Type Severity Reaction Status Date / Time Peanut Butter Allergy Mild Rash Verified 12/27/20 18:54 Active Medications: Current Medications Generic Name Dose Route Start Last Admin Trade Name Kee PRN Reason Stop Dose Admin Allopurinol 300 mg 12/28/20 09:00 01/05/21 08:50 Allopurinol 300 Mg Tablet PO 300 mg DAILY TAMMY Administration Apixaban 5 mg 01/04/21 21:00 01/05/21 08:50 Apixaban 5 Mg Tablet PO 5 mg BID TAMMY Administration Aspirin 81 mg 12/28/20 09:00 01/05/21 08:50 Aspirin Enteric Coated 81 Mg Tablet. PO 81 mg DAILY TAMMY Administration Atorvastatin Calcium 20 mg 12/28/20 09:00 01/05/21 08:50 Atorvastatin Calcium 20 Mg Tablet PO 20 mg DAILY TAMMY Administration Dexamethasone Sodium Phosphate 6 mg 12/28/20 09:00 01/05/21 08:50 Dexamethasone Sod Phosphate 4 Mg/Ml Vial IVPUSH 6 mg DAILY TAMMY Administration Enoxaparin Sodium 40 mg 12/31/20 08:00 01/05/21 08:44 Enoxaparin Sodium 40 Mg/0.4 Ml Syringe SUBCUT 40 mg Q24H TAMMY Administration Furosemide 20 mg 12/28/20 09:00 01/05/21 08:50 Furosemide 20 Mg Tablet PO Not Given DAILY [facility] Protocol Diltiazem HCl 125 mg/ Sodium 125 mls @ 0 mls/hr 01/04/21 10:15 01/05/21 08:57 Chloride IVCONT 15 mg/hr .Q0M TAMMY 15 mls/hr Administration Protocol Per Protocol Insulin Glargine 24 unit 01/05/21 09:00 01/05/21 08:50 Insulin Glargine,Hum.Rec.Anlog 100 Unit/Ml 10 Ml Vial SUBCUT 24 unit DAILY TAMMY Administration Insulin Human Lispro 0 unit 12/28/20 11:30 01/05/21 08:43 Insulin Lispro 100 Unit/Ml 3 Ml Vial SUBCUT 3 unit QIDACHS [facility] Administration Protocol Levothyroxine Sodium 88 mcg 01/05/21 06:00 01/05/21 05:19 Levothyroxine Sodium 88 Mcg Tablet PO 88 mcg DAILY@0600 TAMMY Administration Metformin HCl 500 mg 12/28/20 09:00 01/05/21 08:50 Metformin Hcl 500 Mg Tablet PO 500 mg BIDWM TAMMY Administration Metoprolol Tartrate 5 mg 01/03/21 20:00 01/05/21 01:29 Metoprolol Tartrate 5 Mg/5 Ml Vial IVPUSH 5 mg Q6H PRN Administration Heart Rate >110 Mycophenolate Mofetil 250 mg 12/28/20 09:00 01/05/21 08:50 Mycophenolate Mofetil 250 Mg Capsule PO 250 mg BID [facility] Administration Pharmacy Consult 1 each 12/27/20 12:31 Consult Rx Perform Med Rec MISCELLANE ONCE PRN Consult order Sodium Chloride 3 ml 12/27/20 16:00 01/05/21 08:44 0.9 % Sodium Chloride Flush 3 Ml Syringe IVFLUSH 3 ml QSHIFT [facility] Administration Tacrolimus 0.5 mg 12/28/20 09:00 01/05/21 08:50 Tacrolimus 0.5 Mg Capsule PO 0.5 mg BID TAMMY Administration Home Medications Medication Instructions Recorded Confirmed Last Taken Type allopurinol 300 mg tablet 300 mg PO DAILY 08/21/20 12/27/20 12/10/20 History blood sugar diagnostic #10 ea 08/21/20 12/27/20 Unknown History furosemide 20 mg tablet 20 mg PO DAILY 08/21/20 12/27/20 12/10/20 History lancets 28 gauge #100 ea 08/21/20 12/27/20 Unknown History mycophenolate mofetil 250 mg 250 mg PO BID 08/21/20 12/27/20 12/10/20 History capsule aspirin 81 mg tablet,delayed 81 mg PO DAILY 09/02/20 12/27/20 12/10/20 History release atorvastatin 20 mg PO DAILY 10/07/20 12/27/20 12/10/20 History lisinopril 5 mg tablet 5 mg PO DAILY 12/07/20 12/27/20 12/10/20 History tacrolimus 0.5 mg capsule 0.5 mg PO BID 12/07/20 12/27/20 12/10/20 History Tresiba FlexTouch U-100 20 unit SUBCUT DAILY 12/10/20 12/27/20 12/10/20 History cholecalciferol (vitamin D3) 1,250 mcg PO Q14D 12/10/20 12/27/20 11/26/20 History Physical Exam Vital Signs: Vital Signs: Last Vital Signs Temp 96.5 F L 01/05/21 11:05 Pulse 110 H 01/05/21 11:05 Resp 20 01/05/21 11:05 BP 105/83 01/05/21 11:05 Pulse Ox 93 01/05/21 11:05 Body Mass Index 27.8 Const: General: cooperative, comfortable and no acute distress Orientation/consciousness: patient oriented x3 HENMT: Other: Unremarkable Neck: Neck: Yes normal visual inspection Chest: Chest palpation & inspection: normal inspection of the chest Resp: Auscultation: clear to auscultation bilaterally, no crackles and no wheezes Cardio: Jugular venous distension: no JVD Palpation: normal PMI Heart sounds: S1 normal heart sound present, S2 normal heart sound present, no gallops, no murmurs and no rubs GI: Palpation (GI): Soft to palpation Back/Spine/Pelvis: Other: unremarkable Skin: General skin exam: no rashes or lesions noted Neuro: General: patient oriented x3 Extrem: General: Yes no clubbing, cyanosis or edema Psych: Mental Status: mental status grossly normal Results Labs and Meds Result diagrams: 01/04/21 05:28 01/04/21 05:28 Lab results: Laboratory Results - last 24 hr 01/04/21 01/04/21 01/04/21 11:30 16:48 20:35 POC Glucose 304 H 140 H 278 H 01/05/21 07:13 POC Glucose 185 H ECG Attestation: I personally reviewed and interpreted this ECG as follows: Interpretation: EKG appears to be atrial fibrillation in some areas and flutter elsewhere. In telemetry, she seems to be in atrial flutter with rapid rate. Assessment and Plan (1) Atrial fibrillation with rapid ventricular response: Status: Acute (2) Pneumonia due to COVID-19 virus: Status: Acute Echocardiogram from November 2020 shows LVEF 60-65% and without any obvious valvular pathology. Her atrial fibrillation/flutter with rapid rate is most likely precipitated by the COVID infection. At this time, she is on a Cardizem drip and that may be continued. Continue digoxin. Hopefully, she will convert back to sinus in the next day or so. If not we can at least attempt rate control 1st. If she does not convert and her rate is also uncontrolled, may nee d to consider SOLA/cardioversion but we will try to avoid that as much possible considering the COVID infection. Also on Eliquis and that may be continued.
[2021-01-05 11:16] LABS: Glucose, Whole Blood 367 mg/dL (60-115)
[2021-01-05] MEDS: Digoxin 0.125 MG TABLET PO (11:29)
--- NOTE | 2021-01-05 13:52 | MHC.CM.PN ---
Patient is on 1 liter O2 via NC and IV Decadron for +COVID. Also on IV Cardizem gtt and PRN IV Lopressor for AIB w/ RVR.
--- NOTE | 2021-01-05 14:15 | PC.NURSE ---
Cardizem Drip weaned down to 10mg/hr from the max rate of 15mg/hr at 1145, patient heart rate reached low of 76 and sustained for 30 minutes. Heart rate gradually increased back to 140s and sustained, cardizem drip titrated back to 15mg/hr, blood pressure soft at 110/80, rhythm is still aflutter.
--- NOTE | 2021-01-05 14:27 | MHC.CM.PN ---
CM spoke with patient by phone r/t +COVID, discussed discharge plan since PT is recommending STR. Patient states she has been to rehab before but does not remember the name of the facility. Patient has asked CM to speak with her brother/HCP Chuck. TC to Chuck, no ans, LM to return call re: STR referrals. CM will continue to follow patient for discharge needs.
[2021-01-05 16:11] LABS: Glucose, Whole Blood 296 mg/dL (60-115)
[2021-01-05 19:56] LABS: Glucose, Whole Blood 284 mg/dL (60-115)
--- NOTE | 2021-01-05 22:38 | PC.NURSE ---
Cardizem drip to 10mg, BP 125/68, HR low 90s-1 teens. Nursing will continue to monitor.
[2021-01-06] VITALS (10 sets, daily range): BP systolic 113–127; BP diastolic 58–77; PULSE 73–143; RESP 18–20; TEMP 35.5–36.4; O2SAT 95–97
[2021-01-06] MEDS: dilTIAZem HCL 125 MG in 0.9 % Sodium Chloride 100 ML 15 MG IVCONT ×2 (03:48→12:41)
[2021-01-06] MEDS: Levothyroxine Sodium 88 MCG TABLET PO (05:37)
[2021-01-06 06:23] LABS: Basophils Percent Auto 0.2 % (0-2); Hematocrit 40.3 % (37-47); Imm Gran Abs Auto 0.55 X10*3/uL (0.00-0.03); Imm Gran Pct Auto 3.3 % (0.0-0.4); Lymphocytes Absolute Auto 1.3 X10*3/uL (1.2-4.9); Lymphocytes Percent Auto 7.4 % (20-40); MANUAL DIFF FLAG SCAN; Mean Corpuscular HGB Conc 32.3 g/dl (31.0-35.0); Mean Corpuscular Hemoglobin 30.4 pg (27.0-33.0); Mean Corpuscular Volume 94.2 fL (80-98); Mean Platelet Volume 11.9 fL (9.4-12.3); Monocytes Absolute Auto 1.8 X10*3/uL (0.1-1.2); Monocytes Percent Auto 10.8 % (2-11); NRBC Pct Auto 0.7 /100WBC (0.0-0.2); Neutrophils Absolute Auto 13.1 X10*3/uL (2.0-8.3); Neutrophils Percent Auto 78.3 % (45-73); Platelet Count 501 X10*3/uL (160-400); Red Blood Count 4.28 X10*6/uL (4.20-5.50); Red Cell Distribution Width 14.7 % (11.0-16.0); SCAN SMEAR FLAG 1; White Blood Count 16.8 X10*3/uL (4.8-10.8)
[2021-01-06 07:13] LABS: SLIDE REVIEW VERIFIED
[2021-01-06 07:17] LABS: Glucose, Whole Blood 243 mg/dL (60-115)
[2021-01-06 07:17] LABS: Anion Gap 13 (12-20); Blood Urea Nitrogen 47 mg/dL (9-16); Calcium 8.5 mg/dL (8.4-10.2); Carbon Dioxide 30 mmol/L (22-29); Chloride 101 mmol/L (96-108); Creatinine Clr Calc Pharmacy 62.2; Estimated Glomerular Filt Rate > 60; Glucose Random 214 mg/dL (60-115); Magnesium 1.7 mg/dL (1.6-2.6); Potassium 5.5 mmol/L (3.3-5.1); Sodium 138 mmol/L (135-145)
[2021-01-06] MEDS: 0.9 % Sodium Chloride Flush 3 ML SYRINGE IVFLUSH ×3 (07:57→20:39)
[2021-01-06] MEDS: Enoxaparin Sodium 40 MG/0.4 ML SYRINGE SUBCUT (07:57)
[2021-01-06] MEDS: Insulin Lispro 100 UNIT/ML 3 ML VIAL SUBCUT ×4 (07:57→20:39)
[2021-01-06] MEDS: allopurinoL 300 MG TABLET PO (07:58)
[2021-01-06] MEDS: metFORMIN HCl 500 MG TABLET PO ×2 (07:58→16:52)
[2021-01-06] MEDS: Tacrolimus 0.5 MG CAPSULE PO ×2 (07:58→20:39)
[2021-01-06] MEDS: mycophenolate mofetiL 250 MG CAPSULE PO ×2 (07:58→20:39)
[2021-01-06] MEDS: Aspirin Enteric Coated 81 MG TABLET.DR PO (07:58)
[2021-01-06] MEDS: Apixaban 5 MG TABLET PO ×2 (07:58→20:39)
[2021-01-06] MEDS: Furosemide 20 MG TABLET PO (07:58)
[2021-01-06] MEDS: Atorvastatin Calcium 20 MG TABLET PO (07:59)
[2021-01-06] MEDS: Digoxin 0.125 MG TABLET PO (07:59)
[2021-01-06] MEDS: Insulin Glargine,Hum.rec.anlog 100 UNIT/ML 10 ML VIAL 24 UNIT SUBCUT (07:59)
[2021-01-06] MEDS: Magnesium Sulfate/H2O 2 GM/50 ML PIGGYBACK IV (08:50)
[2021-01-06] MEDS: Insulin Glargine,Hum.rec.anlog 100 UNIT/ML 10 ML VIAL SUBCUT (08:51)
--- NOTE | 2021-01-06 09:35 | MHC.CM.PN ---
Return call from patient's brother/HCP instructed PT is recommending STR. Choices for STR are [facility], [facility] and [facility] in no particular order. Referrals made via allscripts. CM will continue to follow patient for discharge needs.
--- NOTE | 2021-01-06 09:59 | HO.PM.IMPN ---
Subjective Subjective Date of Service: 01/06/21 Interval History: weaned off O2 rate in 140s this am pt denies palpitations or lightheadedness no dyspnea Physical Exam Vital Signs: Vital Signs: Last Vital Signs Temp 97 F 01/06/21 07:08 Pulse 110 H 01/06/21 07:59 Resp 18 01/06/21 07:08 BP 117/71 01/06/21 07:08 Pulse Ox 96 01/06/21 07:08 Body Mass Index 27.8 Gen: in no acute distress HEENT: sclera anicteric, moist mucus membranes Neck: supple Lungs: no respiratory distress, auscultation deferred due to COVID-19 Heart: irregularly irregular, rapid Abd: soft, non-tender, non-distended Ext: no cyanosis, clubbing, or edema Skin: warm/well-perfused Neuro: alert and oriented x3, no focal findings Psych: impaired insight Objective Data Current Medications Generic Name Dose Route Start Last Admin Trade Name Freq PRN Reason Stop Dose Admin Allopurinol 300 mg 12/28/20 09:00 01/06/21 07:58 Allopurinol 300 Mg Tablet PO 300 mg DAILY TAMMY Administration Apixaban 5 mg 01/04/21 21:00 01/06/21 07:58 Apixaban 5 Mg Tablet PO 5 mg BID TAMMY Administration Aspirin 81 mg 12/28/20 09:00 01/06/21 07:58 Aspirin Enteric Coated 81 Mg Tablet.Dr PO 81 mg DAILY TAMMY Administration Atorvastatin Calcium 20 mg 12/28/20 09:00 01/06/21 07:59 Atorvastatin Calcium 20 Mg Tablet PO 20 mg DAILY TAMMY Administration Digoxin 0.125 mg 01/05/21 11:15 01/06/21 07:59 Digoxin 0.125 Mg Tablet PO 0.125 mg DAILY TAMMY Administration Enoxaparin Sodium 40 mg 12/31/20 08:00 01/06/21 07:57 Enoxaparin Sodium 40 Mg/0.4 Ml Syringe SUBCUT 40 mg Q24H TAMMY Administration Furosemide 20 mg 12/28/20 09:00 01/06/21 07:58 Furosemide 20 Mg Tablet PO 20 mg DAILY TAMMY Administration Protocol Diltiazem HCl 125 mg/ Sodium 125 mls @ 0 mls/hr 01/04/21 10:15 01/06/21 08:10 Chloride IVCONT 15 mg/hr .Q0M TAMMY 15 mls/hr Titration Protocol Per Protocol Magnesium Sulfate 2 gm in 50 mls @ 25 mls/hr 01/06/21 08:01 01/06/21 08:50 IV 01/06/21 10:00 25 mls/hr ONCE ONE Administration Insulin Glargine 28 unit 01/07/21 09:00 Insulin Glargine,Hum.Rec.Anlog 100 Unit/Ml 10 Ml Vial SUBCUT DAILY [facility] Insulin Human Lispro 0 unit 12/28/20 11:30 01/06/21 07:57 Insulin Lispro 100 Unit/Ml 3 Ml Vial SUBCUT 6 unit QIDACHS [facility] Administration Protocol Levothyroxine Sodium 88 mcg 01/05/21 06:00 01/06/21 05:37 Levothyroxine Sodium 88 Mcg Tablet PO 88 mcg DAILY@0600 [facility] Administration Metformin HCl 500 mg 12/28/20 09:00 01/06/21 07:58 Metformin Hcl 500 Mg Tablet PO 500 mg BIDWM TAMMY Administration Metoprolol Tartrate 5 mg 01/03/21 20:00 01/05/21 01:29 Metoprolol Tartrate 5 Mg/5 Ml Vial IVPUSH 5 mg Q6H PRN Administration Heart Rate >110 Mycophenolate Mofetil 250 mg 12/28/20 09:00 01/06/21 07:58 Mycophenolate Mofetil 250 Mg Capsule PO 250 mg BID [facility] Administration Pharmacy Consult 1 each 12/27/20 12:31 Consult Rx Perform Med Rec MISCELLANE ONCE PRN Consult order Sodium Chloride 3 ml 12/27/20 16:00 01/06/21 07:57 0.9 % Sodium Chloride Flush 3 Ml Syringe IVFLUSH 3 ml QSHIFT [facility] Administration Tacrolimus 0.5 mg 12/28/20 09:00 01/06/21 07:58 Tacrolimus 0.5 Mg Capsule PO 0.5 mg BID [facility] Administration Labs CBC & Chem 7: 01/06/21 05:37 01/06/21 05:37 Labs: Laboratory Results - last 24 hr 01/05/21 01/05/21 01/05/21 11:00 16:03 19:46 WBC RBC Hgb Hct MCV MCH MCHC RDW Plt Count MPV Immature Gran % (Auto) Neut % (Auto) Lymph % (Auto) [place] % (Auto) Eos % (Auto) Baso % (Auto) Lymph # (Auto) [place] # (Auto) Eos # (Auto) Baso # (Auto) Abs Immat Gran (auto) Absolute Neuts (auto) Absolute Nucleated RBC Nucleated RBC % (auto) Smear Tech's Comments Sodium Potassium Chloride Carbon Dioxide Anion Gap BUN Creatinine Estim Creat Clear Calc Estimated GFR POC Glucose 367 H* 296 H 284 H Random Glucose Calcium Magnesium 01/06/21 01/06/21 01/06/21 05:37 05:37 07:08 WBC 16.8 H RBC 4.28 Hgb 13.0 Hct 40.3 MCV 94.2 MCH 30.4 MCHC 32.3 RDW 14.7 Plt Count 501 H MPV 11.9 Immature Gran % (Auto) 3.3 H Neut % (Auto) 78.3 H Lymph % (Auto) 7.4 L [place] % (Auto) 10.8 Eos % (Auto) 0.0 Baso % (Auto) 0.2 Lymph # (Auto) 1.3 [place] # (Auto) 1.8 H Eos # (Auto) 0.0 Baso # (Auto) 0.0 Abs Immat Gran (auto) 0.55 H Absolute Neuts (auto) 13.1 H Absolute Nucleated RBC 0.110 H Nucleated RBC % (auto) 0.7 H Smear Tech's Comments VERIFIED Sodium 138 Potassium 5.5 H Chloride 101 Carbon Dioxide 30 H Anion Gap 13 BUN 47 H Creatinine 0.81 Estim Creat Clear Calc 62.2 Estimated GFR > 60 POC Glucose 243 H Random Glucose 214 H Calcium 8.5 Magnesium 1.7 Microbiology Microbiology Results: Microbiology 12/27/20 11:21 Blood - Venous Blood Culture - Final No growth after 5 days. 12/27/20 08:54 Blood - Venous Blood Culture - Final No growth after 5 days. Assessment and Plan (1) Pneumonia due to COVID-19 virus: Status: Acute Assessment and Plan: hospital d#11 65yo F with liver transplant on MMF + tacrolimus, breast CA on chemotherapy, developmental delay admitted for hypoxia due to COVID-19 developed new-onset AF/RVR # AF/RVR - maxed on diltiazem gtt and loaded with digoxin and still persistent RVR. discuss with Cardiology- may require SOLA-guided CV - started apixaban for AC - TSH 0.1; LT4 dose decreased # COVID-19 pneumonia - s/p remdesivir x5d, dexamethasone x10d # acute hypoxic resp failure - resolved # hyperkalemia - thought to be pseudohyperkalemia due to thrombocytosis, possibly tacrolimus effect contributing; no EKG changes. appreciate Nephrology consult # thrombocytosis - could be due to COVID-19 vs CA - monitor CBCd # hx liver txp - continue tacrolimus + MMF # DM2, A1c 8, with steroid-induced hyperglycemia - continue MTF, increase Lantus, continue correction-dose Humalog, DM2 diet # hypothyroidism - continue LT4, dose decreased from 100 to 88 mcg/d due to over-suppressed TSH; repeat TSH in 6 wk # gout - continue allopurinol # HTN - on diltiazem gtt [was on PO diltiazem as outpt] # HLD - continue statin # breast CA - f/u with Dr Coto as outpt # VTE ppx - apixaban # dispo - PT consult done, recommend STR due to weakness/imbalance.
--- NOTE | 2021-01-06 10:07 | PM.PNNEP ---
Subjective Subjective Date of Service: 01/06/21 Interval history: Evens noted Physical Exam Vital Signs: Vital Signs: Last Vital Signs Temp 97 F 01/06/21 07:08 Pulse 110 H 01/06/21 07:59 Resp 18 01/06/21 07:08 BP 117/71 01/06/21 07:08 Pulse Ox 96 01/06/21 07:08 Body Mass Index 27.8 Const: General: awake Neck: Neck: No supple Resp: Auscultation: clear to auscultation bilaterally Cardio: Heart sounds: no rubs Neuro: Motor exam (neuro): No Asterixis during motor activity present Objective Data Labs CBC & Chem 7: 01/06/21 05:37 01/06/21 05:37 Labs: Laboratory Results - last 24 hr 01/05/21 01/05/21 01/05/21 11:00 16:03 19:46 WBC RBC Hgb Hct MCV MCH MCHC RDW Plt Count MPV Immature Gran % (Auto) Neut % (Auto) Lymph % (Auto) [place] % (Auto) Eos % (Auto) Baso % (Auto) Lymph # (Auto) [place] # (Auto) Eos # (Auto) Baso # (Auto) Abs Immat Gran (auto) Absolute Neuts (auto) Absolute Nucleated RBC Nucleated RBC % (auto) Smear Tech's Comments Sodium Potassium Chloride Carbon Dioxide Anion Gap BUN Creatinine Estim Creat Clear Calc Estimated GFR POC Glucose 367 H* 296 H 284 H Random Glucose Calcium Magnesium 01/06/21 01/06/21 01/06/21 05:37 05:37 07:08 WBC 16.8 H RBC 4.28 Hgb 13.0 Hct 40.3 MCV 94.2 MCH 30.4 MCHC 32.3 RDW 14.7 Plt Count 501 H MPV 11.9 Immature Gran % (Auto) 3.3 H Neut % (Auto) 78.3 H Lymph % (Auto) 7.4 L [place] % (Auto) 10.8 Eos % (Auto) 0.0 Baso % (Auto) 0.2 Lymph # (Auto) 1.3 [place] # (Auto) 1.8 H Eos # (Auto) 0.0 Baso # (Auto) 0.0 Abs Immat Gran (auto) 0.55 H Absolute Neuts (auto) 13.1 H Absolute Nucleated RBC 0.110 H Nucleated RBC % (auto) 0.7 H Smear Tech's Comments VERIFIED Sodium 138 Potassium 5.5 H Chloride 101 Carbon Dioxide 30 H Anion Gap 13 BUN 47 H Creatinine 0.81 Estim Creat Clear Calc 62.2 Estimated GFR > 60 POC Glucose 243 H Random Glucose 214 H Calcium 8.5 Magnesium 1.7 Microbiology Microbiology Results: Microbiology 12/27/20 11:21 Blood - Venous Blood Culture - Final No growth after 5 days. 12/27/20 08:54 Blood - Venous Blood Culture - Final No growth after 5 days. Assessment & Plan Assessment and plan (1) Hyperkalemia: Problem details: Most likely has Pseudo hyperkalemia due to thrombocytosis No EKG changes suggestive of HyperK Check PLASMA Potassium again Mild CKd Cr is better Status: Acute Time Spent With Patient Time: Total time spent is greater than 50% in coordination of care (as documented) at patient's floor/unit and/or counseling patient:
[2021-01-06 11:16] LABS: Glucose, Whole Blood 330 mg/dL (60-115)
--- NOTE | 2021-01-06 11:44 | PM.PNCARD ---
Subjective Subjective Date of Service: 01/06/21 Principal diagnosis: Atrial fibrillation with rapid ventricular response Interval history: Patient had palpitation this morning. While I was seeing her she was not having any palpitation. She remains in atrial fibrillation rapid ventricular response. Reviewing the onset, on January 03, she was anticoagulated within 24 hours with Eliquis. She in addition is on aspirin Lovenox which needs to be discontinued. She is on IV Cardizem drip. She also received digoxin. Review of Systems Constitutional: Reports no additional constitutional complaints Cardiovascular: Denies chest pain, Denies lightheadedness, Denies Loss of Consciousness, Reports palpitations and Reports dyspnea Respiratory: Reports no additional respiratory complaints and Reports dyspnea Gastrointestinal: Reports no additional gastrointestinal complaints Musculoskeletal: Reports no additional musculoskeletal complaints Reports system reviewed and no additional complaints, except as documented Endocrine: Reports no additional endocrine complaints and Reports palpitations Hematologic/Lymphatic: Reports no additional hematologic/lymphatic complaints Physical Exam Vital Signs: Last Vital Signs Temp 96 F L 01/06/21 10:58 Pulse 101 H 01/06/21 10:58 Resp 20 01/06/21 10:58 BP 122/58 L 01/06/21 10:58 Pulse Ox 95 01/06/21 10:58 Body Mass Index 27.8 Const General: cooperative, comfortable and no acute distress Nutritional Appearance: average body habitus Orientation/consciousness: patient oriented x3 Neck Neck: Yes trachea midline, Yes supple and Yes no JVD Resp Effort & Inspection: normal respiratory effort Auscultation: no wheezes and diminished lung sounds Cardio Rhythm: abnormal rhythm irregularly irregular Heart sounds: S1 normal heart sound present and S2 normal heart sound present GI Auscultation: normal bowel sounds Neuro General: patient oriented x3 and no focal motor deficits Extrem General: Yes no clubbing, cyanosis or edema Results Labs and Meds Result diagrams: 01/06/21 05:37 01/06/21 05:37 Lab results: Laboratory Results - last 24 hr 01/05/21 01/05/21 01/06/21 16:03 19:46 05:37 WBC 16.8 H RBC 4.28 Hgb 13.0 Hct 40.3 MCV 94.2 MCH 30.4 MCHC 32.3 RDW 14.7 Plt Count 501 H MPV 11.9 Immature Gran % (Auto) 3.3 H Neut % (Auto) 78.3 H Lymph % (Auto) 7.4 L [place] % (Auto) 10.8 Eos % (Auto) 0.0 Baso % (Auto) 0.2 Lymph # (Auto) 1.3 [place] # (Auto) 1.8 H Eos # (Auto) 0.0 Baso # (Auto) 0.0 Abs Immat Gran (auto) 0.55 H Absolute Neuts (auto) 13.1 H Absolute Nucleated RBC 0.110 H Nucleated RBC % (auto) 0.7 H Smear Tech's Comments VERIFIED Sodium Potassium Chloride Carbon Dioxide Anion Gap BUN Creatinine Estim Creat Clear Calc Estimated GFR POC Glucose 296 H 284 H Random Glucose Calcium Magnesium 01/06/21 01/06/21 01/06/21 05:37 07:08 10:58 WBC RBC Hgb Hct MCV MCH MCHC RDW Plt Count MPV Immature Gran % (Auto) Neut % (Auto) Lymph % (Auto) [place] % (Auto) Eos % (Auto) Baso % (Auto) Lymph # (Auto) [place] # (Auto) Eos # (Auto) Baso # (Auto) Abs Immat Gran (auto) Absolute Neuts (auto) Absolute Nucleated RBC Nucleated RBC % (auto) Smear Tech's Comments Sodium 138 Potassium 5.5 H Chloride 101 Carbon Dioxide 30 H Anion Gap 13 BUN 47 H Creatinine 0.81 Estim Creat Clear Calc 62.2 Estimated GFR > 60 POC Glucose 243 H 330 H Random Glucose 214 H Calcium 8.5 Magnesium 1.7 Progress Note: A&P Assessment and plan (1) Atrial fibrillation with rapid ventricular response: Status: Acute Assessment and Plan: Atrial fibrillation with rapid ventricular response with difficult to control rate despite maximal Cardizem therapy in elderly woman with multiple comorbidities including acute kidney injury, prior liver transplant on immunosuppressive therapy. Recent echocardiogram showed normal structure of the heart. She is not in heart failure not having any other symptoms. She had oral anticoagulation initiated within 24 hours of atrial fibrillation. Would discontinue concomitant aspirin and Lovenox to reduce bleeding risk. Consider rhythm control approach with chemical cardioversion. Will give her p.o. flecainide 150 mg x1. Close cardiac monitoring pursue. She fails, will start with another 150 mg an hours time. Continue IV Cardizem drip. She feels and in few hours will start on IV amiodarone. If she fails chemical conversion can consider synchronized electrical conversion. Continue full oral anticoagulation with Eliquis. Prognosis is guarded. Fall Risk Details Current Medications: Current Medications Generic Name Dose Route Start Last Admin Trade Name Freq PRN Reason Stop Dose Admin Allopurinol 300 mg 12/28/20 09:00 01/06/21 07:58 Allopurinol 300 Mg Tablet PO 300 mg DAILY TAMMY Administration Apixaban 5 mg 01/04/21 21:00 01/06/21 07:58 Apixaban 5 Mg Tablet PO 5 mg BID TAMMY Administration Atorvastatin Calcium 20 mg 12/28/20 09:00 01/06/21 07:59 Atorvastatin Calcium 20 Mg Tablet PO 20 mg DAILY TAMMY Administration Digoxin 0.125 mg 01/05/21 11:15 01/06/21 07:59 Digoxin 0.125 Mg Tablet PO 0.125 mg DAILY TAMMY Administration Flecainide Acetate 150 mg 01/06/21 11:42 Flecainide Acetate 50 Mg Tablet PO 01/06/21 11:43 ONCE ONE Furosemide 20 mg 12/28/20 09:00 01/06/21 07:58 Furosemide 20 Mg Tablet PO 20 mg DAILY TAMMY Administration Protocol Diltiazem HCl 125 mg/ Sodium 125 mls @ 0 mls/hr 01/04/21 10:15 01/06/21 08:10 Chloride IVCONT 15 mg/hr .Q0M [facility] 15 mls/hr Titration Protocol Per Protocol Insulin Glargine 28 unit 01/07/21 09:00 Insulin Glargine,Hum.Rec.Anlog 100 Unit/Ml 10 Ml Vial SUBCUT DAILY [facility] Insulin Human Lispro 0 unit 12/28/20 11:30 01/06/21 11:41 Insulin Lispro 100 Unit/Ml 3 Ml Vial SUBCUT 10 unit QIDACHS [facility] Administration Protocol Levothyroxine Sodium 88 mcg 01/05/21 06:00 01/06/21 05:37 Levothyroxine Sodium 88 Mcg Tablet PO 88 mcg DAILY@0600 TAMMY Administration Metformin HCl 500 mg 12/28/20 09:00 01/06/21 07:58 Metformin Hcl 500 Mg Tablet PO 500 mg BIDWM TAMMY Administration Metoprolol Tartrate 5 mg 01/03/21 20:00 01/05/21 01:29 Metoprolol Tartrate 5 Mg/5 Ml Vial IVPUSH 5 mg Q6H PRN Administration Heart Rate >110 Mycophenolate Mofetil 250 mg 12/28/20 09:00 01/06/21 07:58 Mycophenolate Mofetil 250 Mg Capsule PO 250 mg BID TAMMY Administration Pharmacy Consult 1 each 12/27/20 12:31 Consult Rx Perform Med Rec MISCELLANE ONCE PRN Consult order Sodium Chloride 3 ml 12/27/20 16:00 01/06/21 07:57 0.9 % Sodium Chloride Flush 3 Ml Syringe IVFLUSH 3 ml QSHIFT TAMMY Administration Tacrolimus 0.5 mg 12/28/20 09:00 01/06/21 07:58 Tacrolimus 0.5 Mg Capsule PO 0.5 mg BID TAMMY Administration Time Spent With Patient Time: Total time spent is greater than 50% in coordination of care (as documented) at patient's floor/unit and/or counseling patient: Time with patient: 25 - 35 minutes
[2021-01-06] MEDS: Flecainide Acetate 50 MG TABLET 150 MG PO ×2 (12:05→14:02)
--- NOTE | 2021-01-06 15:21 | ECG_ITS ---
Test Reason : RHYTHM CHANGE Blood Pressure : / mmHG Vent. Rate : 073 BPM Atrial Rate : 073 BPM P-R Int : 154 ms QRS Dur : 082 ms QT Int : 380 ms P-R-T Axes : 030 064 039 degrees QTc Int : 418 ms Normal sinus rhythm Borderline ECG When compared to the previous EKG of Normal sinus rhythm has replaced Atrial fibrillation with rapid ventricular response Referred By: Martha Coffman Electronically Signed By:ORLANDO SALTER MD
--- NOTE | 2021-01-06 16:06 | PC.NURSE ---
Cardizem drip titrated to 15mg/hr at 0810 as HR 130-140, decreased to 90-110bpm. 1205 150mg Flecainide PO given, HR 80-110 still atrial flutter. 1402 2nd dose 150mg PO Flecainide given, HR sustaining 70-80, cardizem drip titrated down to 10mg/hr at 1444 and then down to 5mg/hr at 1458. At 1521 pt had a 3.9 sec pause followed by 2.9 sec pause then converted to NSR, cardizem drip off at this time. EKG 12 lead completed. notified. VSS, neuro's baseline after conversion to NSR.
[2021-01-06 16:28] LABS: Glucose, Whole Blood 203 mg/dL (60-115)
[2021-01-06 20:31] LABS: Glucose, Whole Blood 204 mg/dL (60-115)
[2021-01-07] VITALS (7 sets, daily range): BP systolic 110–133; BP diastolic 66–76; PULSE 74–80; RESP 18–20; TEMP 36.2–36.9; O2SAT 95–96
[2021-01-07] MEDS: Levothyroxine Sodium 88 MCG TABLET PO (05:45)
[2021-01-07 06:23] LABS: Basophils Absolute Auto 0.1 X10*3/uL (0.0-0.2); Basophils Percent Auto 0.3 % (0-2); Hematocrit 38.9 % (37-47); Hemoglobin 12.5 g/dl (12.0-16.0); Imm Gran Abs Auto 0.61 X10*3/uL (0.00-0.03); Imm Gran Pct Auto 3.1 % (0.0-0.4); Lymphocytes Absolute Auto 1.9 X10*3/uL (1.2-4.9); Lymphocytes Percent Auto 9.9 % (20-40); MANUAL DIFF FLAG SCAN; Mean Corpuscular HGB Conc 32.1 g/dl (31.0-35.0); Mean Corpuscular Hemoglobin 30.4 pg (27.0-33.0); Mean Corpuscular Volume 94.6 fL (80-98); Mean Platelet Volume 12.5 fL (9.4-12.3); Monocytes Absolute Auto 3.2 X10*3/uL (0.1-1.2); Monocytes Percent Auto 16.2 % (2-11); NRBC Pct Auto 0.8 /100WBC (0.0-0.2); Neutrophils Absolute Auto 13.7 X10*3/uL (2.0-8.3); Neutrophils Percent Auto 70.5 % (45-73); Platelet Count 430 X10*3/uL (160-400); Red Blood Count 4.11 X10*6/uL (4.20-5.50); Red Cell Distribution Width 14.7 % (11.0-16.0); SCAN SMEAR FLAG 1; White Blood Count 19.5 X10*3/uL (4.8-10.8)
[2021-01-07 06:37] LABS: Anion Gap 11 (12-20); Blood Urea Nitrogen 47 mg/dL (9-16); Calcium 8.1 mg/dL (8.4-10.2); Carbon Dioxide 32 mmol/L (22-29); Chloride 100 mmol/L (96-108); Estimated Glomerular Filt Rate > 60; Glucose Random 124 mg/dL (60-115); Magnesium 2.2 mg/dL (1.6-2.6); Potassium 5.7 mmol/L (3.3-5.1); Sodium 137 mmol/L (135-145)
[2021-01-07 08:00] LABS: SLIDE REVIEW VERIFIED
[2021-01-07] MEDS: Insulin Lispro 100 UNIT/ML 3 ML VIAL SUBCUT ×2 (08:25→11:34)
[2021-01-07] MEDS: Apixaban 5 MG TABLET PO (08:26)
[2021-01-07] MEDS: 0.9 % Sodium Chloride Flush 3 ML SYRINGE IVFLUSH (08:26)
[2021-01-07] MEDS: mycophenolate mofetiL 250 MG CAPSULE PO (08:26)
[2021-01-07] MEDS: allopurinoL 300 MG TABLET PO (08:26)
[2021-01-07] MEDS: Digoxin 0.125 MG TABLET PO (08:26)
[2021-01-07] MEDS: Atorvastatin Calcium 20 MG TABLET PO (08:27)
[2021-01-07] MEDS: metFORMIN HCl 500 MG TABLET PO (08:27)
[2021-01-07] MEDS: Tacrolimus 0.5 MG CAPSULE PO (08:27)
[2021-01-07] MEDS: Furosemide 20 MG TABLET PO (08:27)
[2021-01-07] MEDS: Insulin Glargine,Hum.rec.anlog 100 UNIT/ML 10 ML VIAL 28 UNIT SUBCUT (08:28)
--- NOTE | 2021-01-07 09:24 | PM.PNNEP ---
Subjective Subjective Date of Service: 01/09/21 Principal diagnosis: Atrial fibrillation with rapid ventricular response Interval history: Evens noted Physical Exam Vital Signs: Vital Signs: Last Vital Signs Temp 97.6 F 01/07/21 09:15 Pulse 74 01/07/21 08:26 Resp 20 01/07/21 08:00 BP 128/75 01/07/21 08:00 Pulse Ox 95 01/07/21 08:00 Body Mass Index 27.8 Const: General: awake Neck: Neck: No supple Resp: Auscultation: clear to auscultation bilaterally Cardio: Heart sounds: no rubs Neuro: Motor exam (neuro): No Asterixis during motor activity present Objective Data Labs CBC & Chem 7: 01/07/21 05:12 01/07/21 05:12 Labs: Laboratory Results - last 24 hr 01/06/21 01/06/21 01/06/21 10:58 16:22 19:43 WBC RBC Hgb Hct MCV MCH MCHC RDW Plt Count MPV Immature Gran % (Auto) Neut % (Auto) Lymph % (Auto) [place] % (Auto) Eos % (Auto) Baso % (Auto) Lymph # (Auto) [place] # (Auto) Eos # (Auto) Baso # (Auto) Abs Immat Gran (auto) Absolute Neuts (auto) Absolute Nucleated RBC Nucleated RBC % (auto) Smear Tech's Comments Sodium Potassium Chloride Carbon Dioxide Anion Gap BUN Creatinine Estim Creat Clear Calc Estimated GFR POC Glucose 330 H 203 H 204 H Random Glucose Calcium Magnesium 01/07/21 01/07/21 05:12 05:12 WBC 19.5 H RBC 4.11 L Hgb 12.5 Hct 38.9 MCV 94.6 MCH 30.4 MCHC 32.1 RDW 14.7 Plt Count 430 H MPV 12.5 H Immature Gran % (Auto) 3.1 H Neut % (Auto) 70.5 Lymph % (Auto) 9.9 L [place] % (Auto) 16.2 H Eos % (Auto) 0.0 Baso % (Auto) 0.3 Lymph # (Auto) 1.9 [place] # (Auto) 3.2 H Eos # (Auto) 0.0 Baso # (Auto) 0.1 Abs Immat Gran (auto) 0.61 H Absolute Neuts (auto) 13.7 H Absolute Nucleated RBC 0.150 H Nucleated RBC % (auto) 0.8 H Smear Tech's Comments VERIFIED Sodium 137 Potassium 5.7 H Chloride 100 Carbon Dioxide 32 H Anion Gap 11 L BUN 47 H Creatinine 0.80 Estim Creat Clear Calc 63.0 Estimated GFR > 60 POC Glucose Random Glucose 124 H D Calcium 8.1 L Magnesium 2.2 Microbiology Microbiology Results: Microbiology 12/27/20 11:21 Blood - Venous Blood Culture - Final No growth after 5 days. 12/27/20 08:54 Blood - Venous Blood Culture - Final No growth after 5 days. Assessment & Plan Assessment and plan (1) Hyperkalemia: Problem details: (1) Hyperkalemia: Problem details: Most likely has Pseudo hyperkalemia due to thrombocytosis No EKG changes suggestive of HyperK Check PLASMA Potassium again Mild CKd Cr is better Status: Acute Time Spent With Patient Time: Total time spent is greater than 50% in coordination of care (as documented) at patient's floor/unit and/or counseling patient:
[2021-01-07 09:32] LABS: Glucose, Whole Blood 157 mg/dL (60-115)
--- NOTE | 2021-01-07 09:44 | PM.PNCARD ---
Subjective Subjective Date of Service: 01/07/21 Principal diagnosis: Atrial fibrillation with rapid ventricular response Interval history: Patient converted to sinus rhythm after chemical cardioversion with p.o. flecainide. Doing well. No cardiac symptoms to report at current time. Review of Systems Constitutional: Reports no additional constitutional complaints Cardiovascular: Reports no additional cardiovascular complaints Respiratory: Reports no additional respiratory complaints Reports system reviewed and no additional complaints, except as documented Psychiatric: Reports no additional psychiatric complaints Physical Exam Vital Signs: Last Vital Signs Temp 97.6 F 01/07/21 09:15 Pulse 74 01/07/21 08:26 Resp 20 01/07/21 08:00 BP 128/75 01/07/21 08:00 Pulse Ox 95 01/07/21 08:00 Body Mass Index 27.8 Const General: cooperative, comfortable, alert and awake Orientation/consciousness: patient oriented x3 Neck Neck: Yes trachea midline, Yes supple and Yes no JVD Resp Effort & Inspection: normal respiratory effort Auscultation: clear to auscultation bilaterally Cardio Jugular venous distension: no JVD Palpation: normal PMI Rate: regular rate Rhythm: regular rhythm Heart sounds: S1 normal heart sound present and S2 normal heart sound present Neuro General: patient oriented x3 and no focal motor deficits Extrem General: Yes no clubbing, cyanosis or edema Results Labs and Meds Result diagrams: 01/07/21 05:12 01/07/21 05:12 Lab results: Laboratory Results - last 24 hr 01/06/21 01/06/21 01/06/21 10:58 16:22 19:43 WBC RBC Hgb Hct MCV MCH MCHC RDW Plt Count MPV Immature Gran % (Auto) Neut % (Auto) Lymph % (Auto) [place] % (Auto) Eos % (Auto) Baso % (Auto) Lymph # (Auto) [place] # (Auto) Eos # (Auto) Baso # (Auto) Abs Immat Gran (auto) Absolute Neuts (auto) Absolute Nucleated RBC Nucleated RBC % (auto) Smear Tech's Comments Sodium Potassium Chloride Carbon Dioxide Anion Gap BUN Creatinine Estim Creat Clear Calc Estimated GFR POC Glucose 330 H 203 H 204 H Random Glucose Calcium Magnesium 01/07/21 01/07/21 01/07/21 05:12 05:12 08:12 WBC 19.5 H RBC 4.11 L Hgb 12.5 Hct 38.9 MCV 94.6 MCH 30.4 MCHC 32.1 RDW 14.7 Plt Count 430 H MPV 12.5 H Immature Gran % (Auto) 3.1 H Neut % (Auto) 70.5 Lymph % (Auto) 9.9 L [place] % (Auto) 16.2 H Eos % (Auto) 0.0 Baso % (Auto) 0.3 Lymph # (Auto) 1.9 [place] # (Auto) 3.2 H Eos # (Auto) 0.0 Baso # (Auto) 0.1 Abs Immat Gran (auto) 0.61 H Absolute Neuts (auto) 13.7 H Absolute Nucleated RBC 0.150 H Nucleated RBC % (auto) 0.8 H Smear Tech's Comments VERIFIED Sodium 137 Potassium 5.7 H Chloride 100 Carbon Dioxide 32 H Anion Gap 11 L BUN 47 H Creatinine 0.80 Estim Creat Clear Calc 63.0 Estimated GFR > 60 POC Glucose 157 H Random Glucose 124 H D Calcium 8.1 L Magnesium 2.2 Progress Note: A&P Assessment and plan (1) Paroxysmal atrial fibrillation: Status: Acute Assessment and Plan: Difficult to control atrial fibrillation with recent onset due to medical situation. Echocardiogram a month ago was within normal limits. Converted chemically with flecainide therapy. However given that this was the 1st episode would avoid antiarrhythmic drug therapy due to drug interaction especially with her immunosuppressive drugs. Consider Toprol 25 mg daily on discharge. Continue full oral anticoagulation with Eliquis 5 mg b.i.d.. There is no indication for aspirin therapy which should be discontinued. Will sign of the case and follow up as outpatient. Thank you for allowing us to partake in her care Fall Risk Details Current Medications: Current Medications Generic Name Dose Route Start Last Admin Trade Name Kee PRN Reason Stop Dose Admin Allopurinol 300 mg 12/28/20 09:00 01/07/21 08:26 Allopurinol 300 Mg Tablet PO 300 mg DAILY TAMMY Administration Apixaban 5 mg 01/04/21 21:00 01/07/21 08:26 Apixaban 5 Mg Tablet PO 5 mg BID TAMMY Administration Atorvastatin Calcium 20 mg 12/28/20 09:00 01/07/21 08:27 Atorvastatin Calcium 20 Mg Tablet PO 20 mg DAILY TAMMY Administration Digoxin 0.125 mg 01/05/21 11:15 01/07/21 08:26 Digoxin 0.125 Mg Tablet PO 0.125 mg DAILY TAMMY Administration Furosemide 20 mg 12/28/20 09:00 01/07/21 08:27 Furosemide 20 Mg Tablet PO 20 mg DAILY TAMMY Administration Protocol Diltiazem HCl 125 mg/ Sodium 125 mls @ 0 mls/hr 01/04/21 10:15 01/06/21 15:21 Chloride IVCONT 0 mg/hr .Q0M TAMMY 0 mls/hr Titration Protocol Per Protocol Insulin Glargine 28 unit 01/07/21 09:00 01/07/21 08:28 Insulin Glargine,Hum.Rec.Anlog 100 Unit/Ml 10 Ml Vial SUBCUT 28 unit DAILY TAMMY Administration Insulin Human Lispro 0 unit 12/28/20 11:30 01/07/21 08:25 Insulin Lispro 100 Unit/Ml 3 Ml Vial SUBCUT 4 unit QIDACHS COUNTS INCLUDE 234 BEDS AT THE [facility] Administration Protocol Levothyroxine Sodium 88 mcg 01/05/21 06:00 01/07/21 05:45 Levothyroxine Sodium 88 Mcg Tablet PO 88 mcg DAILY@0600 TAMMY Administration Metformin HCl 500 mg 12/28/20 09:00 01/07/21 08:27 Metformin Hcl 500 Mg Tablet PO 500 mg BIDWM TAMMY Administration Metoprolol Succinate 25 mg 01/07/21 09:10 Metoprolol Succinate Er 25 Mg Tab.Er.24h PO DAILY COUNTS INCLUDE 234 BEDS AT THE [facility] Protocol Metoprolol Tartrate 5 mg 01/03/21 20:00 01/05/21 01:29 Metoprolol Tartrate 5 Mg/5 Ml Vial IVPUSH 5 mg Q6H PRN Administration Heart Rate >110 Mycophenolate Mofetil 250 mg 12/28/20 09:00 01/07/21 08:26 Mycophenolate Mofetil 250 Mg Capsule PO 250 mg BID COUNTS INCLUDE 234 BEDS AT THE [facility] Administration Pharmacy Consult 1 each 12/27/20 12:31 Consult Rx Perform Med Rec MISCELLANE ONCE PRN Consult order Sodium Chloride 3 ml 12/27/20 16:00 01/07/21 08:26 0.9 % Sodium Chloride Flush 3 Ml Syringe IVFLUSH 3 ml QSHIFT TAMMY Administration Tacrolimus 0.5 mg 12/28/20 09:00 01/07/21 08:27 Tacrolimus 0.5 Mg Capsule PO 0.5 mg BID TAMMY Administration Time Spent With Patient Time: Total time spent is greater than 50% in coordination of care (as documented) at patient's floor/unit and/or counseling patient: Time with patient: 25 - 35 minutes
[2021-01-07] MEDS: Metoprolol Succinate ER 25 MG TAB.ER.24H PO (10:17)
[2021-01-07 11:15] LABS: Glucose, Whole Blood 159 mg/dL (60-115)
--- NOTE | 2021-01-07 12:32 | MHC.CM.PN ---
ALEXIS spoke with Chuck CRABTREE and instructed [facility] do not have a bed for patient. next choice is [facility] then [facility]. Referrals placed via [email or web address]. Chuck will fax over HCP today. ALEXIS will continue to follow patient for discharge needs.
--- NOTE | 2021-01-07 13:37 | P.PNIM_ITS ---
Subjective Subjective Date of Service: 01/07/21 Interval History: chemically cardioverted successfully yesterday afternoon with PO flecainide pt remains in NSR no chest pain or dyspnea Physical Exam Vital Signs: Vital Signs: Last Vital Signs Temp 98.5 F 01/07/21 12:00 Pulse 79 01/07/21 12:00 Resp 18 01/07/21 12:00 BP 123/76 01/07/21 12:00 Pulse Ox 95 01/07/21 12:00 Body Mass Index 27.8 Gen: in no acute distress HEENT: sclera anicteric, moist mucus membranes Neck: supple Lungs: no respiratory distress, auscultation deferred due to COVID-19 Heart: normal peripheral pulses Abd: soft, non-tender, non-distended Ext: no cyanosis, clubbing, or edema Skin: warm/well-perfused Neuro: alert, no focal findings Psych: limited insight Objective Data Current Medications Generic Name Dose Route Start Last Admin Trade Name Freq PRN Reason Stop Dose Admin Allopurinol 300 mg 12/28/20 09:00 01/07/21 08:26 Allopurinol 300 Mg Tablet PO 300 mg DAILY TAMMY Administration Apixaban 5 mg 01/04/21 21:00 01/07/21 08:26 Apixaban 5 Mg Tablet PO 5 mg BID TAMMY Administration Atorvastatin Calcium 20 mg 12/28/20 09:00 01/07/21 08:27 Atorvastatin Calcium 20 Mg Tablet PO 20 mg DAILY TAMMY Administration Digoxin 0.125 mg 01/05/21 11:15 01/07/21 08:26 Digoxin 0.125 Mg Tablet PO 0.125 mg DAILY TAMMY Administration Furosemide 20 mg 12/28/20 09:00 01/07/21 08:27 Furosemide 20 Mg Tablet PO 20 mg DAILY TAMMY Administration Protocol Diltiazem HCl 125 mg/ Sodium 125 mls @ 0 mls/hr 01/04/21 10:15 01/06/21 15:21 Chloride IVCONT 0 mg/hr .Q0M TAMMY 0 mls/hr Titration Protocol Per Protocol Insulin Glargine 28 unit 01/07/21 09:00 01/07/21 08:28 Insulin Glargine,Hum.Rec.Anlog 100 Unit/Ml 10 Ml Vial SUBCUT 28 unit DAILY TAMMY Administration Insulin Human Lispro 0 unit 12/28/20 11:30 01/07/21 11:34 Insulin Lispro 100 Unit/Ml 3 Ml Vial SUBCUT 4 unit QIDACHS [facility] Administration Protocol Levothyroxine Sodium 88 mcg 01/05/21 06:00 01/07/21 05:45 Levothyroxine Sodium 88 Mcg Tablet PO 88 mcg DAILY@0600 TAMMY Administration Metformin HCl 500 mg 12/28/20 09:00 01/07/21 08:27 Metformin Hcl 500 Mg Tablet PO 500 mg BIDWM TAMMY Administration Metoprolol Succinate 25 mg 01/07/21 09:10 01/07/21 10:17 Metoprolol Succinate Er 25 Mg Tab.Er.24h PO 25 mg DAILY TAMMY Administration Protocol Metoprolol Tartrate 5 mg 01/03/21 20:00 01/05/21 01:29 Metoprolol Tartrate 5 Mg/5 Ml Vial IVPUSH 5 mg Q6H PRN Administration Heart Rate >110 Mycophenolate Mofetil 250 mg 12/28/20 09:00 01/07/21 08:26 Mycophenolate Mofetil 250 Mg Capsule PO 250 mg BID [facility] Administration Pharmacy Consult 1 each 12/27/20 12:31 Consult Rx Perform Med Rec MISCELLANE ONCE PRN Consult order Sodium Chloride 3 ml 12/27/20 16:00 01/07/21 08:26 0.9 % Sodium Chloride Flush 3 Ml Syringe IVFLUSH 3 ml QSHIFT [facility] Administration Tacrolimus 0.5 mg 12/28/20 09:00 01/07/21 08:27 Tacrolimus 0.5 Mg Capsule PO 0.5 mg BID [facility] Administration Labs CBC & Chem 7: 01/07/21 05:12 01/07/21 05:12 Labs: Laboratory Results - last 24 hr 01/06/21 01/06/21 01/07/21 16:22 19:43 05:12 WBC 19.5 H RBC 4.11 L Hgb 12.5 Hct 38.9 MCV 94.6 MCH 30.4 MCHC 32.1 RDW 14.7 Plt Count 430 H MPV 12.5 H Immature Gran % (Auto) 3.1 H Neut % (Auto) 70.5 Lymph % (Auto) 9.9 L [place] % (Auto) 16.2 H Eos % (Auto) 0.0 Baso % (Auto) 0.3 Lymph # (Auto) 1.9 [place] # (Auto) 3.2 H Eos # (Auto) 0.0 Baso # (Auto) 0.1 Abs Immat Gran (auto) 0.61 H Absolute Neuts (auto) 13.7 H Absolute Nucleated RBC 0.150 H Nucleated RBC % (auto) 0.8 H Smear Tech's Comments VERIFIED Sodium Potassium Chloride Carbon Dioxide Anion Gap BUN Creatinine Estim Creat Clear Calc Estimated GFR POC Glucose 203 H 204 H Random Glucose Calcium Magnesium 01/07/21 01/07/21 01/07/21 05:12 08:12 10:57 WBC RBC Hgb Hct MCV MCH MCHC RDW Plt Count MPV Immature Gran % (Auto) Neut % (Auto) Lymph % (Auto) [place] % (Auto) Eos % (Auto) Baso % (Auto) Lymph # (Auto) [place] # (Auto) Eos # (Auto) Baso # (Auto) Abs Immat Gran (auto) Absolute Neuts (auto) Absolute Nucleated RBC Nucleated RBC % (auto) Smear Tech's Comments Sodium 137 Potassium 5.7 H Chloride 100 Carbon Dioxide 32 H Anion Gap 11 L BUN 47 H Creatinine 0.80 Estim Creat Clear Calc 63.0 Estimated GFR > 60 POC Glucose 157 H 159 H Random Glucose 124 H D Calcium 8.1 L Magnesium 2.2 Microbiology Microbiology Results: Microbiology 12/27/20 11:21 Blood - Venous Blood Culture - Final No growth after 5 days. 12/27/20 08:54 Blood - Venous Blood Culture - Final No growth after 5 days. Assessment and Plan (1) Pneumonia due to COVID-19 virus: Status: Acute Assessment and Plan: hospital d#12 65yo F with liver transplant on MMF + tacrolimus, breast CA on chemotherapy, developmental delay admitted for hypoxia due to COVID-19 developed new-onset AF/RVR # AF/RVR - recalcitrant despite maximum diltiazem gtt + digoxin. given new-onset and AC within 24h, underwent successfully chemical cardioversion with flecainide yesterday - start metoprolol succinate 25 mg daily per Cardiology - on apixaban for AC - TSH 0.1; LT4 dose decreased # COVID-19 pneumonia - s/p remdesivir x5d, dexamethasone x10d # acute hypoxic resp failure - resolved # hyperkalemia - thought to be pseudohyperkalemia due to thrombocytosis, possibly tacrolimus effect contributing; no EKG changes. appreciate Nephrology consult # thrombocytosis - could be due to COVID-19 vs CA - monitor CBCd- improving # leukocytosis - suspect steroid effect # hx liver txp - continue tacrolimus + MMF # DM2, A1c 8, with steroid-induced hyperglycemia - continue MTF, increase Lantus, continue correction-dose Humalog, DM2 diet # hypothyroidism - continue LT4, dose decreased from 100 to 88 mcg/d due to over-suppressed TSH; repeat TSH in 6 wk # gout - continue allopurinol # HTN - metoprolol as above # HLD - continue statin # breast CA - f/u with Dr Coto as outpt # VTE ppx - apixaban # dispo - PT consult done, recommend STR due to weakness/imbalance.
--- NOTE | 2021-01-07 14:35 | MHC.CM.PN ---
Patient will be discharged today to [facility] at 3:30pm via BLS transport. HCP Chuck, nurse and patient are aware.
--- NOTE | 2021-01-07 14:37 | P.DS_ITS ---
DS: Providers Provider Date of Service: 01/07/21 Date of admission: 12/27/20 12:51 Primary care physician: Nahum Fernandez MD Consults: 12/27/20 12:51 Consult to Infectious Diseases Routine Consulting Provider: Gretchen Nguyen Reason for consultation: COVID Has provider been notified: No 01/03/21 10:49 Consult to Nephrology Routine Consulting Provider: Martin Carlos Reason for consultation: ?pseudohyperkalemia? due to high plts/tacrolimus? 01/04/21 09:57 Consult to Cardiology Routine Consulting Provider: Des Blackman Reason for consultation: new-onset AF/RVR DS: Diagnosis Discharge Diagnosis (1) Pneumonia due to COVID-19 virus: Status: Acute (2) Paroxysmal atrial fibrillation: Status: Acute (3) Atrial fibrillation with rapid ventricular response: Status: Acute (4) Hyperkalemia: Status: Acute (5) Acidosis, lactic: Status: Acute (6) Hypothyroidism, unspecified: Status: Chronic DS: Medications Discharge Medications Home Medications: Home Medications Medication Instructions Recorded Confirmed allopurinol 300 mg tablet 300 mg PO DAILY 08/21/20 12/27/20 blood sugar diagnostic #10 ea 08/21/20 12/27/20 furosemide 20 mg tablet 20 mg PO DAILY 08/21/20 12/27/20 lancets 28 gauge #100 ea 08/21/20 12/27/20 mycophenolate mofetil 250 mg 250 mg PO BID 08/21/20 12/27/20 capsule atorvastatin 20 mg PO DAILY 10/07/20 12/27/20 tacrolimus 0.5 mg capsule 0.5 mg PO BID 12/07/20 12/27/20 Tresiba FlexTouch U-100 20 unit SUBCUT DAILY 12/10/20 12/27/20 cholecalciferol (vitamin D3) 1,250 mcg PO Q14D 12/10/20 12/27/20 Previous Rx's Medication Instructions Recorded metformin 500 mg tablet 500 mg PO BID #90 tab 09/02/20 pen needle, diabetic 31 gauge x #100 ea 09/02/20 3/16 repaglinide 0.5 mg tablet 0.5 mg PO TID 90 Days #270 tab 09/02/20 ondansetron HCl [Zofran] 8 mg PO Q8H PRN #50 tab 12/09/20 apixaban [Eliquis] 5 mg PO BID #60 tab 01/07/21 levothyroxine 88 mcg PO DAILY@0600 #30 tab 01/07/21 metoprolol succinate 25 mg PO DAILY #30 tab 01/07/21 DS: Summary Hospital Course Hospital Course: From admission history and physical by hospitalist POLLS OR SURVEYS INTERVIEWER Mini Josiah, 12/27/20: A 65-year-old woman with intellectual disability, presenting to the ER after being seen by her visiting nurse. Apparently, her oxygen saturation was found to be 87%. The patient was diagnosed with COVID on December 22. She has multiple medical problems including liver transplant in 2000. Apparently, she was also found to be tachycardic upon arrival to the ER with heart rate in the 150s. She may have had an episode of atrial tach or atrial flutter which she has no history of apparently. She was recently discharged from [facility] on December 13. At that time, she was treated for hypotension and MARIA ESTHER in the setting of diarrhea and chemotherapy. She does have a history of breast cancer and is currently undergoing chemotherapy treatment with Dr. Coto. In the ER today, chest CTA was negative for PE, did show bilateral peripheral ground-glass attenuation and denser infiltrates at the lung bases, likely representing COVID disease. She had no white count. Platelet count 671. Potassium 5.2, lactic acid 2.2. Troponin 61.6. BNP 691. She denied fever, chills, nausea, vomiting, diarrhea, chest pain. In the ER, she was given diltiazem, Tylenol, cefepime, Decadron, azithromycin, and normal saline. To be admitted for further management and treatment of COVID pneumonia, acute respiratory failure. The patient was admitted to the [facility] on isolation precautions. For COVID pneumonia, she was treated with supplemental oxygen, 5 days of remdesivir, and 10 days of dexamethasone. She was weaned off O2 on 01/05. She developed atrial fibrillation with rapid ventricular response that was refractory to diltiazem infusion and digoxin. Given new onset and intiation of anticoagulation with apixaban within 24 hours, she was given flecainide for chemical cardioversion and successfully converted to sinus rhythm. She was started on metoprolol succinate to replace diltiazem and lisinopril. TSH was noted to be over- suppressed at 0.1 and levothyroxine dose was decreased from 100 to 88 mcg daily; she will need repeat TSH in 6 weeks. She should also follow up with Cardiology in 2 weeks. She was noted to be hyperkalemic without any EKG changes, but this was thought to be pseudohyperkalemia due to thrombocytosis. Leukocytosis was attributed to steroid effect. She was discharged to short-term rehabilitation due to weakness and balance deficits. She will need to follow up with her oncologist, Dr Coto, once discharged from rehabilitation, for ongoing treatment of breast cancer. Time Spent with Patient Time attestation: Total time spent providing and/or coordinating discharge services: 40 min Discharge coordination time: Greater than 30 minutes Physical Exam Vital Signs: Vital Signs: Last Vital Signs Temp 98.5 F 01/07/21 12:00 Pulse 79 01/07/21 12:00 Resp 18 01/07/21 12:00 BP 123/76 01/07/21 12:00 Pulse Ox 95 01/07/21 12:00 Body Mass Index 27.8 Gen: in no acute distress HEENT: sclera anicteric, moist mucus membranes Neck: supple Lungs: no respiratory distress, auscultation deferred due to COVID-19 Heart: normal peripheral pulses Abd: soft, non-tender, non-distended Ext: no cyanosis, clubbing, or edema Skin: warm/well-perfused Neuro: no focal findings, alert Psych: impaired insight DS: Data Data Completed and Pending Completed studies during hospitalization [Text1]: Procedures Control Bleeding in Chest Wall, Open Approach (10/07/20) Extirpation of Matter from Left Trunk Muscle, Open Approach (10/07/20) Resection of Left Axillary Lymphatic, Open Approach (10/07/20) Resection of Left Breast, Open Approach (10/07/20) Transfusion of Nonautologous Red Blood Cells into Peripheral Vein, Percutaneous Approach (10/07/20) Labs on day of discharge: Laboratory Results WBC 19.5 X10*3/uL (4.8-10.8) H 01/07/21 05:12 RBC 4.11 X10*6/uL (4.20-5.50) L 01/07/21 05:12 Hgb 12.5 g/dl (12.0-16.0) 01/07/21 05:12 Hct 38.9 % (37-47) 01/07/21 05:12 MCV 94.6 fL (80-98) 01/07/21 05:12 MCH 30.4 pg (27.0-33.0) 01/07/21 05:12 MCHC 32.1 g/dl (31.0-35.0) 01/07/21 05:12 RDW 14.7 % (11.0-16.0) 01/07/21 05:12 Plt Count 430 X10*3/uL (160-400) H 01/07/21 05:12 MPV 12.5 fL (9.4-12.3) H 01/07/21 05:12 Immature Gran % (Auto) 3.1 % (0.0-0.4) H 01/07/21 05:12 Neut % (Auto) 70.5 % (45-73) 01/07/21 05:12 Lymph % (Auto) 9.9 % (20-40) L 01/07/21 05:12 [place] % (Auto) 16.2 % (2-11) H 01/07/21 05:12 Eos % (Auto) 0.0 % (0-4) 01/07/21 05:12 Baso % (Auto) 0.3 % (0-2) 01/07/21 05:12 Lymph # (Auto) 1.9 X10*3/uL (1.2-4.9) 01/07/21 05:12 [place] # (Auto) 3.2 X10*3/uL (0.1-1.2) H 01/07/21 05:12 Eos # (Auto) 0.0 X10*3/uL (0.0-0.4) 01/07/21 05:12 Baso # (Auto) 0.1 X10*3/uL (0.0-0.2) 01/07/21 05:12 Abs Immat Gran (auto) 0.61 X10*3/uL (0.00-0.03) H 01/07/21 05:12 Absolute Neuts (auto) 13.7 X10*3/uL (2.0-8.3) H 01/07/21 05:12 Absolute Nucleated RBC 0.150 X10*3/uL (0.0-0.012) H 01/07/21 05:12 Nucleated RBC % (auto) 0.8 /100WBC (0.0-0.2) H 01/07/21 05:12 Neutrophils % (Manual) 78 % (45-73) H 12/27/20 08:41 Band Neutrophils % 4 % (3-5) 12/27/20 08:41 Lymphocytes % (Manual) 3 % (20-40) L 12/27/20 08:41 Atypical Lymphs % (Man) 1 % (0-6) 12/27/20 08:41 Monocytes % (Manual) 11 % (2-11) 12/27/20 08:41 Basophils % (Manual) 2 % (0-1) H 12/27/20 08:41 Metamyelocytes % 1 % 12/27/20 08:41 Abs Neuts (Manual) 8.5 X10*3/uL (2.2-7.9) H 12/27/20 08:41 Lymphocytes # (Manual) 0.3 X10*3/uL (0.6-4.8) L 12/27/20 08:41 Atyp Lymphs # (Manual) 0.1 x10*3/uL 12/27/20 08:41 Monocytes # (Manual) 1.1 X10*3/uL (0.0-1.2) 12/27/20 08:41 Basophils # (Manual) 0.2 X10*3/uL (0.0-0.3) 12/27/20 08:41 Metamyelocytes # 0.1 X10*3/uL 12/27/20 08:41 Nucleated RBCs 13 /100WBC (0-0) H 12/27/20 08:41 Platelet Estimate INCREASED (NORMAL) 12/27/20 08:41 Large Platelets PRESENT 12/27/20 08:41 Plt Morphology Comment NOTED 12/27/20 08:41 RBC Morphology NOTED 12/27/20 08:41 Spherocytes 1+ 12/27/20 08:41 Ovalocytes 1+ 12/27/20 08:41 [place] Bodies PRESENT 12/27/20 08:41 Delta Cells 1+ 12/27/20 08:41 Acanthocytes (Spur) 2+ 12/27/20 08:41 Schistocytes 1+ 12/27/20 08:41 Smear Tech's Comments VERIFIED 01/07/21 05:12 Smear Path Review SEE NOTE 01/01/21 05:48 PT 14.2 SEC (10.8-13.0) H 12/27/20 08:41 INR 1.2 (0.9-1.1) H 12/27/20 08:41 APTT 32.8 SEC (24.1-38.0) 12/27/20 08:41 D-Dimer 724 NG/ML 12/27/20 08:41 VBG pH 7.28 (7.32-7.43) L 12/27/20 08:54 VBG pCO2 35 mmHg 12/27/20 08:54 VBG pO2 41 mmHg 12/27/20 08:54 VBG HCO3 16 mmol/L 12/27/20 08:54 VBG O2 Saturation 63.0 % 12/27/20 08:54 VBG Base Excess -8.9 mmol/L 12/27/20 08:54 Sodium 137 mmol/L (135-145) 01/07/21 05:12 Potassium 5.7 mmol/L (3.3-5.1) H 01/07/21 05:12 Chloride 100 mmol/L (96-108) 01/07/21 05:12 Carbon Dioxide 32 mmol/L (22-29) H 01/07/21 05:12 Anion Gap 11 (12-20) L 01/07/21 05:12 BUN 47 mg/dL (9-16) H 01/07/21 05:12 Creatinine 0.80 mg/dL (0.5-1.4) 01/07/21 05:12 Estim Creat Clear Calc 63.0 01/07/21 05:12 Estimated GFR > 60 01/07/21 05:12 POC Glucose 159 mg/dL (60-115) H 01/07/21 10:57 Random Glucose 124 mg/dL (60-115) H D 01/07/21 05:12 Fasting Glucose 259 mg/dL (60-99) H D 01/03/21 05:24 Estimat Average Glucose 183 mg/dL 01/03/21 05:24 Hemoglobin A1c % 8.0 % 01/03/21 05:24 Lactic Acid 2.2 mmol/L (0.5-2.0) H* 12/27/20 08:40 Lactic Acid Fup @ 2Hr 1.7 mmol/L (0.5-2.0) 12/27/20 11:21 Calcium 8.1 mg/dL (8.4-10.2) L 01/07/21 05:12 Magnesium 2.2 mg/dL (1.6-2.6) 01/07/21 05:12 Ferritin 1067 ng/mL (10-250) H 01/03/21 14:17 Total Bilirubin 0.4 mg/dL (0.0-1.0) 01/01/21 07:48 Direct Bilirubin 0.2 mg/dL (0.0-0.5) 01/01/21 07:48 AST 49 U/L (5-31) H 01/01/21 07:48 ALT 67 U/L (0-31) H 01/01/21 07:48 Alkaline Phosphatase 117 U/L (39-117) 01/01/21 07:48 Lactate Dehydrogenase 545 U/L (122-220) H 01/03/21 14:17 Troponin I High Sens 46.2 ng/L (<3.5-17.0) H 12/27/20 14:08 C-Reactive Protein 1.06 mg/dL (< or = 0.50) H 01/03/21 14:17 B-Natriuretic Peptide 164 pg/mL (<100) H 12/28/20 05:28 Total Protein 5.8 g/dL (6.5-8.0) L 01/01/21 07:48 Albumin 2.7 g/dL (3.5-5.0) L 01/01/21 07:48 Procalcitonin 0.16 ng/mL 01/03/21 14:17 TSH 0.10 uIU/mL (0.32-4.0) L 01/04/21 05:28 Impressions Chest X-Ray 12/27/20 08:21 IMPRESSION: Bilateral patchy airspace opacities slightly more prominent than the previous study. There are right pleural effusion has resolved. No change in right central venous port catheter. Chest CTA 12/27/20 09:26 IMPRESSION: No evidence of pulmonary embolism. Bilateral peripheral groundglass attenuation and denser infiltrates, greatest at the lung bases. This may be related to patient's history of Covid infection. Left pleural thickening and calcification. Abnormal soft tissue in the left lower axilla and chest wall, question representing postsurgical change. VTE: negative Discharge Plan Discharge Patient Disposition: er [facility] Referrals: [facility] [Outside] Nahum Fernandez MD [Primary Care Provider] - 1 Week (Please call and schedule a follow up appointment within 1 week) Des Blackman MD [Physician] - Discharge Medications: New levothyroxine 88 mcg Tablet 88 mcg PO DAILY@0600 Qty: 30 RF: 0 metoprolol succinate 25 mg Tablet Extended Release 24 Hr 25 mg PO DAILY Qty: 30 RF: 0 Eliquis 5 mg Tablet 5 mg PO BID Qty: 60 RF: 0 Continued ondansetron HCl [Zofran] 4 mg Tablet 8 mg PO Q8H PRN (Reason: Nausea And Vomiting) Qty: 50 RF: 4 atorvastatin 20 mg tablet 20 mg PO DAILY RF: 0 Tresiba FlexTouch U-100 100 unit/mL (3 mL) Insulin Pen 20 unit SUBCUT DAILY RF: 0 cholecalciferol (vitamin D3) 1,250 mcg (50,000 unit) capsule 1,250 mcg PO Q14D RF: 0 metformin 500 mg tablet 500 mg PO BID Qty: 90 RF: 3 repaglinide 0.5 mg tablet 0.5 mg PO TID 90 Days Qty: 270 RF: 3 (DME) pen needle, diabetic 31 gauge x 3/16 needle See Rx Instructions ea subcut DAILY Qty: 100 RF: 3 mycophenolate mofetil 250 mg capsule 250 mg PO BID RF: 0 allopurinol 300 mg tablet 300 mg PO DAILY RF: 0 (DME) blood sugar diagnostic Strip See Rx Instructions ea Not Applicable TID Qty: 10 RF: 0 furosemide 20 mg tablet 20 mg PO DAILY RF: 0 (DME) lancets 28 gauge misc See Rx Instructions ea topical TID Qty: 100 RF: 0 tacrolimus 0.5 mg capsule 0.5 mg PO BID RF: 0 Discontinued dexamethasone [Decadron] 4 mg Tablet 4 mg PO BID Qty: 100 RF: 4 aspirin [Adult Aspirin Regimen] 81 mg tablet,delayed release (DR/EC) 81 mg PO DAILY RF: 0 levothyroxine 100 mcg tablet 100 mcg PO DAILY 90 Days Qty: 90 RF: 3 diltiazem HCl 180 mg capsule,extended release 24hr 180 mg PO DAILY 90 Days Qty: 90 RF: 3 lisinopril 5 mg tablet 5 mg PO DAILY RF: 0 Discharge Orders: Discharge Order (Routine); Ordered 01/07/21 Ordered By: Martha Coffman Diet: diabetic diet and low salt diet Activity on Discharge: As tolerated Stand Alone Forms: Patient Portal Discharge page Other Ambulatory Orders: Thyroid Stimulating Hormone (Routine) Timeframe: 6 Weeks Facility: [facility] - Location: Laboratory Ordered By: Martha Coffman Care Plan Goals: recovery from COVID-19 control of atrial fibrillation and prevention of stroke Health Concerns: COVID-19 atrial fibrillation hypothyroidism Plan of Treatment: You completed 10 days of steroids and were wenaed off oxygen. No isolation necessary, as it has been more than 10 days since onset of illness. Please stop DILTIAZEM and LISINOPRIL. You were changed to METOPROLOL SUCCINATE 25 mg daily for control of blood pressure and atrial fibrillation. Please stop ASPIRIN. You were changed to APIXABAN 5 mg twice daily to prevent strokes. Your dose of LEVOTHYROXINE was decreased from 100 mcg to 88 mcg daily. Please recheck TSH [lab draw] in 6 weeks. Please follow up with your primary care doctor 1 week after discharged from rehabilitation. Patient Instructions: A-fib (Atrial Fibrillation) (DC), COVID-19 (Coronavirus Disease 2019) (DC)
--- NOTE | 2021-01-18 10:37 | MHC.HEMONCSW ---
CHART REVIEW... [facility] DUE TO HOSPITALIZATION FOR COVID AND CARDIAC ISSUES.
== END 2021-01-07 15:37 | disposition skilled nursing facility (03) | DRG 177 ==
LOC: HO.ED 11:45 → HO.EDOVER 13:00 → HO.IMC 17:44
PROVIDERS: Internal Medicine; Nurse Practitioner Acute Care; Admitting Provider Internal Medicine; Emergency Provider Emergency Medicine; PCP Internal Medicine; Visit Provider Family Medicine
DX: U07.1 COVID-19 (principal); J12.82 Pneumonia due to coronavirus disease 2019; J96.01 Acute respiratory failure with hypoxia; Z94.4 Liver transplant status; E03.9 Hypothyroidism, unspecified; C50.919 Malignant neoplasm of unspecified site of unspecified female breast; K21.9 Gastro-esophageal reflux disease without esophagitis; E78.5 Hyperlipidemia, unspecified; I48.91 Unspecified atrial fibrillation; D47.3 Essential (hemorrhagic) thrombocythemia; N18.2 Chronic kidney disease, stage 2 (mild); M10.9 Gout, unspecified; E87.5 Hyperkalemia; E11.9 Type 2 diabetes mellitus without complications; Z79.4 Long term (current) use of insulin; Z79.01 Long term (current) use of anticoagulants; Z79.890 Hormone replacement therapy; Z79.899 Other long term (current) drug therapy
CPT/HCPCS: 36415; 71045; 71275; 80048; 80076; 82728; 82803; 82947; 83036; 83605; 83615; 83735; 83880; 84145; 84443; 84484; 85007; 85025; 85027; 85060; 85379; 85610; 85730; 86140; 87040; 93005; 96361; 96365; 96366; 96375; 97110; 97116; 97162; 97530; 99285; 99291; J0456; J0692; J1100; J1160; J1650; J3475; J3490; Q9967

== ENCOUNTER → 2021-01-24 14:26 | Outpatient (BNVA) | payer MEDICARE, MEDICAID, SELFPAY | PROVIDERS: PCP Internal Medicine; Visit Provider Nurse Practitioner Gerontology | DX: E11.65 Type 2 diabetes mellitus with hyperglycemia (principal); Z79.4 Long term (current) use of insulin | CPT/HCPCS: 82947; 99212 ==

== ENCOUNTER 2021-02-04 14:05 | Outpatient (REF) | payer MEDICARE, MEDICAID, SELFPAY ==
--- NOTE | ~2021-02-04 | XR_ITS ---
EXAMINATION: XR CHEST CLINICAL INFORMATION: Type 2 diabetes. COMPARISON: CT scan of the chest December 27, 2020. Most recent chest x-ray December 27, 2020. TECHNIQUE: 2 views of the chest were obtained. FINDINGS: There are persistent bilateral patchy opacity in both lungs. Central venous catheter in the CC. Cardiac silhouette mediastinum pulmonary vascularity normal. Bone and soft tissues unremarkable. XR/XR chest 2V IMPRESSION: Bilateral patchy airspace opacities unchanged compared to most recent chest examinations. This could reflect persistent pneumonia.
== END 2021-02-04 14:06 | disposition home or self-care (01) ==
LOC: HO.XRAY 14:05
PROVIDERS: PCP Internal Medicine; Visit Provider Internal Medicine
DX: U07.1 COVID-19 (principal); E11.65 Type 2 diabetes mellitus with hyperglycemia
CPT/HCPCS: 71046

== ENCOUNTER → 2021-02-08 14:56 | Outpatient (BNVA) | payer MEDICARE, MEDICAID, SELFPAY | PROVIDERS: PCP Internal Medicine; Visit Provider Surgery | DX: C50.912 Malignant neoplasm of unspecified site of left female breast (principal) | CPT/HCPCS: 99212 ==

== ENCOUNTER → 2021-02-14 14:38 | Outpatient (BNVA) | payer MEDICARE, MEDICAID, SELFPAY | PROVIDERS: PCP Internal Medicine; Visit Provider Internal Medicine Endocrinology, Diabetes & Metabolism | DX: Z13.89 Encounter for screening for other disorder (principal) | CPT/HCPCS: Q3014 ==

== ENCOUNTER 2021-02-18 07:15 | Outpatient (REF) | payer MEDICARE, MEDICAID, SELFPAY ==
[2021-02-18 08:50] LABS: Free T4 (Free Thyroxine) 1.08 ng/dL (0.71-1.85); Thyroid Stimulating Hormone 0.75 uIU/mL (0.32-4.0)
== END 2021-02-18 07:16 | disposition home or self-care (01) ==
LOC: HO.LAB 07:15
PROVIDERS: PCP Internal Medicine; Visit Provider Nurse Practitioner Gerontology
DX: E03.9 Hypothyroidism, unspecified (principal)
CPT/HCPCS: 36415; 84439; 84443

== ENCOUNTER 2021-03-01 14:56 | Outpatient (REF) | payer MEDICARE, MEDICAID, SELFPAY ==
--- NOTE | ~2021-03-01 | XR_ITS ---
EXAMINATION: XR CHEST CLINICAL INFORMATION: Covid 19 COMPARISON: February 04, 2021 TECHNIQUE: 2 views of the chest were obtained. FINDINGS: There are again noted to be patchy regions of groundglass disease bilaterally with a region of what appears be linear scarring about the peripheral mid left chest. No pneumothorax or significant pleural effusion. Heart normal size. Right internal jugular port catheter seen in place with tip of catheter within the distal superior vena cava. T10 anterior wedge compression fracture again noted. XR/XR chest 2V IMPRESSION: Continued regions of patchy disease bilaterally without significant change.
== END 2021-03-01 14:57 | disposition home or self-care (01) ==
LOC: HO.XRAY 14:56
PROVIDERS: PCP Internal Medicine; Visit Provider Internal Medicine
DX: U07.1 COVID-19 (principal)
CPT/HCPCS: 71046

== ENCOUNTER 2021-03-07 10:47 | Outpatient (REF) | payer MEDICARE, MEDICAID, SELFPAY ==
[2021-03-07 12:22] LABS: Blood Urea Nitrogen 33 mg/dL (9-16); Estimated Glomerular Filt Rate 55; Potassium 4.9 mmol/L (3.3-5.1)
== END 2021-03-07 10:48 | disposition home or self-care (01) ==
LOC: HO.LNP 10:47
PROVIDERS: PCP Internal Medicine; Visit Provider Internal Medicine
DX: R94.4 Abnormal results of kidney function studies (principal); E87.5 Hyperkalemia
CPT/HCPCS: 82565; 84132; 84520

== ENCOUNTER → 2021-03-22 14:17 | Outpatient (BNVA) | payer MEDICARE, MEDICAID, SELFPAY | PROVIDERS: PCP Internal Medicine; Visit Provider Nurse Practitioner Family | DX: I48.0 Paroxysmal atrial fibrillation (principal); I95.9 Hypotension, unspecified; Z79.899 Other long term (current) drug therapy | CPT/HCPCS: 99212 ==

== ENCOUNTER 2021-03-24 10:31 | Outpatient (REF) | payer MEDICARE, MEDICAID, SELFPAY ==
[2021-03-24 11:28] LABS: Blood Urea Nitrogen 42 mg/dL (9-16); Potassium 4.9 mmol/L (3.3-5.1)
== END 2021-03-24 10:32 | disposition home or self-care (01) ==
LOC: HO.LNP 10:31
PROVIDERS: Visit Provider Internal Medicine
DX: E87.5 Hyperkalemia (principal); N18.30 Chronic kidney disease, stage 3 unspecified
CPT/HCPCS: 84132; 84520

== ENCOUNTER 2021-04-05 13:49 | Outpatient (REF) | payer MEDICARE, MEDICAID, SELFPAY ==
--- NOTE | ~2021-04-05 | XR_ITS ---
EXAMINATION: XR CHEST CLINICAL INFORMATION: Covid infection COMPARISON: Previous chest x-ray most recent 03/01/2021 TECHNIQUE: 2 views of the chest were obtained. FINDINGS: The cardiac and mediastinal contours are stable. There is a right jugular port with tip projecting over the SVC. There are increased markings seen in the lungs, left greater than right compatible with resolving infiltrates. This is similar to most recent exam 03/01/2021. No new infiltrate is seen. There is no pleural effusion or pneumothorax. There are degenerative changes of the spine. There is a old T10 vertebral body compression fracture. XR/XR chest 2V IMPRESSION: Resolving bilateral infiltrates similar to most recent exam 03/01/2021
== END 2021-04-05 13:50 | disposition home or self-care (01) ==
LOC: HO.XRAY 13:49
PROVIDERS: PCP Internal Medicine; Visit Provider Internal Medicine
DX: Z13.89 Encounter for screening for other disorder (principal)
CPT/HCPCS: 71046

== ENCOUNTER 2021-04-05 14:54 | Outpatient (REF) | payer MEDICARE, MEDICAID, SELFPAY ==
[2021-04-05 15:15] LABS: COVID-19 Test Negative (Negative)
== END 2021-04-05 14:55 | disposition home or self-care (01) ==
LOC: HO.LAB 14:54
PROVIDERS: PCP Internal Medicine; Visit Provider Internal Medicine
DX: Z20.822 Contact with and (suspected) exposure to COVID-19 (principal)
CPT/HCPCS: 36415; 71046; 87635; C9803

== ENCOUNTER 2021-04-15 15:53 | Outpatient (REF) | payer MEDICARE, MEDICAID, SELFPAY ==
[2021-04-15 17:06] LABS: Blood Urea Nitrogen 35 mg/dL (9-16); Estimated Glomerular Filt Rate 55; Potassium 4.4 mmol/L (3.3-5.1)
== END 2021-04-15 15:54 | disposition home or self-care (01) ==
LOC: HO.LNP 15:53
PROVIDERS: Visit Provider Internal Medicine
DX: N18.30 Chronic kidney disease, stage 3 unspecified (principal)
CPT/HCPCS: 82565; 84132; 84520

== ENCOUNTER → 2021-05-12 14:35 | Outpatient (BNVA) | payer MEDICARE, MEDICAID, SELFPAY | PROVIDERS: PCP Internal Medicine; Visit Provider Surgery | DX: Z48.3 Aftercare following surgery for neoplasm (principal); D05.12 Intraductal carcinoma in situ of left breast | CPT/HCPCS: 99212 ==

== ENCOUNTER → 2021-05-18 14:24 | Outpatient (BNVA) | payer MEDICARE, MEDICAID, SELFPAY | PROVIDERS: PCP Internal Medicine; Visit Provider Internal Medicine Endocrinology, Diabetes & Metabolism | DX: E11.65 Type 2 diabetes mellitus with hyperglycemia (principal); E11.22 Type 2 diabetes mellitus with diabetic chronic kidney disease; I12.9 Hypertensive chronic kidney disease with stage 1 through stage 4 chronic kidney disease, or unspecified chronic kidney disease; N18.30 Chronic kidney disease, stage 3 unspecified; E03.9 Hypothyroidism, unspecified; E78.5 Hyperlipidemia, unspecified; M81.0 Age-related osteoporosis without current pathological fracture; E66.9 Obesity, unspecified; Z68.30 Body mass index [BMI] 30.0-30.9, adult; Z79.4 Long term (current) use of insulin | CPT/HCPCS: 82947; 99212 ==

== ENCOUNTER 2021-05-23 13:52 | Outpatient (REF) | payer MEDICARE, MEDICAID, SELFPAY ==
--- NOTE | ~2021-05-23 | XR_ITS ---
EXAMINATION: XR CHEST CLINICAL INFORMATION: Covid infection follow-up COMPARISON: 04/05/2021 TECHNIQUE: 2 views of the chest were obtained. FINDINGS: Persistent architectural distortion particularly of the peripheral upper lung zones with vague reticulation and opacity. Stable biapical pleural-parenchymal thickening. No dense focal consolidation, pleural effusion or pneumothorax. Heart size is normal. Right chest port with catheter tip in the upper SVC. No acute osseous abnormality. Chronic compression fracture midthoracic spine. Vascular calcifications. XR/XR chest 2V IMPRESSION: Overall similar appearance of the areas of architectural distortion of the lung parenchyma, left greater than right. This most likely represents postinfectious scarring.
== END 2021-05-23 13:53 | disposition home or self-care (01) ==
LOC: HO.XRAY 13:52
PROVIDERS: PCP Internal Medicine; Visit Provider Internal Medicine
DX: U07.1 COVID-19 (principal)
CPT/HCPCS: 71046

== ENCOUNTER 2021-06-07 10:18 | Outpatient (REF) | payer MEDICARE, MEDICAID, SELFPAY ==
[2021-06-07 10:55] LABS: Estimated Average Glucose 189 mg/dL; Hemoglobin A1c % 8.2 %
[2021-06-07 11:17] LABS: Alanine Aminotransferase 67 U/L (0-31); Albumin Level 3.9 g/dL (3.5-5.0); Alkaline Phosphatase 133 U/L (39-117); Aspartate Amino Transferase 40 U/L (5-31); Bilirubin Direct 0.2 mg/dL (0.0-0.5); Bilirubin Total 0.4 mg/dL (0.0-1.0); Cholesterol 178 mg/dL; Glucose Fasting 129 mg/dL (60-99); HDL Cholesterol 41 mg/dL; LDL Cholesterol Calculated 102 mg/dl; Total Protein 6.9 g/dL (6.5-8.0); Triglycerides 178 mg/dL
[2021-06-07 11:50] LABS: Reflex LDLD? No
== END 2021-06-07 10:19 | disposition home or self-care (01) ==
LOC: HO.LNP 10:18
PROVIDERS: Visit Provider Internal Medicine
DX: E11.65 Type 2 diabetes mellitus with hyperglycemia (principal); E78.00 Pure hypercholesterolemia, unspecified
CPT/HCPCS: 80061; 80076; 82947; 83036

== ENCOUNTER → 2021-06-14 14:32 | Outpatient (BNVA) | payer MEDICARE, MEDICAID, SELFPAY | PROVIDERS: PCP Internal Medicine; Referring Provider Internal Medicine; Visit Provider Internal Medicine Endocrinology, Diabetes & Metabolism | DX: E11.65 Type 2 diabetes mellitus with hyperglycemia (principal); E11.22 Type 2 diabetes mellitus with diabetic chronic kidney disease; I12.9 Hypertensive chronic kidney disease with stage 1 through stage 4 chronic kidney disease, or unspecified chronic kidney disease; N18.30 Chronic kidney disease, stage 3 unspecified; E03.9 Hypothyroidism, unspecified; E78.5 Hyperlipidemia, unspecified; M81.0 Age-related osteoporosis without current pathological fracture; E66.9 Obesity, unspecified; Z79.4 Long term (current) use of insulin; Z68.30 Body mass index [BMI] 30.0-30.9, adult | CPT/HCPCS: 82947; 99212 ==

== ENCOUNTER → 2021-07-20 14:00 | Outpatient (BNVA) | payer MEDICARE, MEDICAID, SELFPAY | PROVIDERS: PCP Internal Medicine; Referring Provider Internal Medicine; Visit Provider Internal Medicine | DX: I48.0 Paroxysmal atrial fibrillation (principal) | CPT/HCPCS: 99212 ==

== ENCOUNTER 2021-08-04 13:51 | Outpatient (REF) | payer MEDICARE, MEDICAID, SELFPAY ==
--- NOTE | ~2021-08-04 | XR_ITS ---
EXAMINATION: XR CHEST CLINICAL INFORMATION: Follow-up Covid infection. COMPARISON: Previous chest x-rays most recent 2020 TECHNIQUE: 2 views of the chest were obtained. FINDINGS: The cardiac and mediastinal contours are stable. There is a right jugular port with tip projecting over the SVC seen. There is biapical pleural thickening. There is left lateral midlung scarring. The lungs are otherwise clear. There is no pleural effusion or pneumothorax. There are degenerative changes of the spine. There is an old body compression fracture that appears unchanged. XR/XR chest 2V IMPRESSION: Biapical pleural thickening. Scarring or chronic subsegmental atelectasis in the lateral left midlung similar to exam.
== END 2021-08-04 13:52 | disposition home or self-care (01) ==
LOC: HO.XRAY 13:51
PROVIDERS: PCP Internal Medicine; Visit Provider Internal Medicine
DX: U07.1 COVID-19 (principal)
CPT/HCPCS: 71046

== ENCOUNTER → 2021-08-09 14:30 | Outpatient (BNVA) | payer MEDICARE, MEDICAID, SELFPAY | PROVIDERS: PCP Internal Medicine; Visit Provider Surgery | DX: C50.912 Malignant neoplasm of unspecified site of left female breast (principal); D05.12 Intraductal carcinoma in situ of left breast | CPT/HCPCS: 99212 ==

== ENCOUNTER 2021-08-30 12:45 | Day surgery (SDC) | payer MEDICARE, MEDICAID, SELFPAY ==
--- NOTE | ~2021-08-30 | IR_ITS ---
PROCEDURE: PORT-A-CATH REMOVAL CLINICAL INFORMATION: Breast cancer. Port no longer needed. COMPARISON: None TECHNIQUE/FINDINGS: Procedure and risks and benefits including bleeding and infection were discussed with the patient and informed consent was obtained. All elements of maximal sterile barrier technique followed including use of cap, mask, sterile gown, sterile gloves, a sterile full body drape and hand hygiene. Also followed skin preparation with 2% chlorhexidine for cutaneous antisepsis, and sterile ultrasound preparation with sterile gel and probe cover when applicable. The right upper chest over the port was prepped and draped in the usual sterile fashion. The skin and soft tissues were anesthetized with 1% lidocaine plain. A small incision was made over the port. The port and catheter were removed. The incision was closed using three 3-0 absorbable interrupted sutures followed by a running 4-0 absorbable subcuticular suture. Patient received Versed 1 mg and fentanyl 25 mcg intravenously during the procedure. Total sedation time was 15 minutes. Conscious sedation was provided by a registered nurse under my direct supervision with continuous hemodynamic monitoring. IR/IR cvc remove tunnel w prt/sba business development officer IMPRESSION: Right internal jugular Port-A-Cath removal.
[2021-08-30 13:22] VITALS: BMI 29.5
[2021-08-30 13:43] LABS: Basophils Absolute Auto 0.1 X10*3/uL (0.0-0.2); Basophils Percent Auto 0.5 % (0-2); Eosinophils Absolute Auto 0.2 X10*3/uL (0.0-0.4); Eosinophils Percent Auto 1.8 % (0-4); Hematocrit 42.1 % (37-47); Hemoglobin 13.7 g/dl (12.0-16.0); Imm Gran Abs Auto 0.03 X10*3/uL (0.00-0.03); Imm Gran Pct Auto 0.3 % (0.0-0.4); Lymphocytes Absolute Auto 5.4 X10*3/uL (1.2-4.9); Lymphocytes Percent Auto 45.7 % (20-40); MANUAL DIFF FLAG SCAN; Mean Corpuscular HGB Conc 32.5 g/dl (31.0-35.0); Mean Corpuscular Hemoglobin 31.2 pg (27.0-33.0); Mean Corpuscular Volume 95.9 fL (80-98); Mean Platelet Volume 10.6 fL (9.4-12.3); Monocytes Absolute Auto 1.3 X10*3/uL (0.1-1.2); Monocytes Percent Auto 10.8 % (2-11); NRBC Pct Auto 0.5 /100WBC (0.0-0.2); Neutrophils Absolute Auto 4.9 X10*3/uL (2.0-8.3); Neutrophils Percent Auto 40.9 % (45-73); Platelet Count 264 X10*3/uL (160-400); Red Blood Count 4.39 X10*6/uL (4.20-5.50); Red Cell Distribution Width 15.3 % (11.0-16.0); SCAN SMEAR FLAG 1; White Blood Count 11.9 X10*3/uL (4.8-10.8)
[2021-08-30 13:48] LABS: INTERNATIONAL NORM RATIO 1.1 (0.9-1.1); Prothrombin Time 12.5 SEC (9.9-13.0)
[2021-08-30 13:51] LABS: Partial Thromboplastin Time 33.1 SEC (24.1-38.0)
[2021-08-30 13:54] LABS: Glucose, Whole Blood 122 mg/dL (60-115)
--- NOTE | 2021-08-30 14:05 | PC.NURSE ---
Verified with Brother Chuck over the phone ([phone]) patients last doses of Insulin and Eliquis. Last dose of Eliquis was 10/2 AM and last dose of Treseba 15 units was 10/4 AM. Radiology made aware.
[2021-08-30 14:10] LABS: SLIDE REVIEW VERIFIED
--- NOTE | 2021-08-30 16:12 | P.RADPN_ITS ---
RADIOLOGY Narrative Narrative: Right chest portacath removed.
--- NOTE | 2021-08-30 16:12 | HO.RADPN ---
RADIOLOGY Narrative Narrative: Right chest portacath removed.
[2021-08-30 16:15] VITALS: BP 120/72; PULSE 78; RESP 18; TEMP 36.1; O2SAT 95
[2021-08-30 16:30] VITALS: BP 132/78; PULSE 81; RESP 20; O2SAT 97
[2021-08-30 16:45] VITALS: BP 125/71; PULSE 82; RESP 16; O2SAT 95
[2021-08-30 17:00] VITALS: BP 131/65; PULSE 82; RESP 16; O2SAT 96
== END 2021-08-30 17:17 | disposition home or self-care (01) ==
LOC: HO.SSS 12:45
PROVIDERS: PCP Internal Medicine; Visit Provider Radiology Diagnostic Radiology
PROC: (CPT 36590; principal; 2021-08-30 14:30)
DX: Z45.2 Encounter for adjustment and management of vascular access device (principal); C50.912 Malignant neoplasm of unspecified site of left female breast; Z79.810 Long term (current) use of selective estrogen receptor modulators (SERMs); E11.22 Type 2 diabetes mellitus with diabetic chronic kidney disease; I12.9 Hypertensive chronic kidney disease with stage 1 through stage 4 chronic kidney disease, or unspecified chronic kidney disease; N18.30 Chronic kidney disease, stage 3 unspecified; I48.0 Paroxysmal atrial fibrillation; Z79.01 Long term (current) use of anticoagulants; Z79.4 Long term (current) use of insulin; Z90.12 Acquired absence of left breast and nipple; Z94.4 Liver transplant status
CPT/HCPCS: 36415; 36590; 82947; 85025; 85610; 85730; 99152; 99153; J2250; J3010

== ENCOUNTER → 2021-10-04 14:29 | Outpatient (REF) | payer MEDICARE, MEDICAID, SELFPAY ==
--- NOTE | ~2021-10-04 | MM_ITS ---
EXAMINATION: MM SCREENING DIGITAL BREAST TOMOSYNTHESIS, BILATERAL CLINICAL INFORMATION: Screening. Asymptomatic. Status post left mastectomy. Status post right internal jugular port catheter which was removed on 08/30/2021. COMPARISON: Mammography: 08/04/2021 and studies dating back to 01/27/2014. TECHNIQUE: Digital breast tomosynthesis is performed in both the craniocaudal and mediolateral oblique views along with computer-aided detection (CAD). Synthesized 2D images are generated from the tomosynthesis. FINDINGS: There are scattered areas of fibroglandular density (ACR BI-RADS breast composition Category b). Patient status post left mastectomy. There is a region of spiculated density seen about the right axilla which is likely related to port removal performed on 08/30/2021; however, diagnostic mediolateral oblique projection with skin markers in place is recommended to ensure that this density is associated with scar from port removal. MM/MM tomosynthesis screening RT IMPRESSION: Region of architectural distortion right axilla, likely related to port removal performed a month earlier but for which spot compression view with surgical marker in place is recommended. ASSESSMENT: BI-RADS 0: Incomplete - Need Additional Imaging Evaluation RECOMMENDATION: 1. Additional view of the right breast. 2. Targeted ultrasound if warranted after review of the additional views. 3. Radiology department staff will contact the patient for additional imaging. This patient's information was entered into a reminder system with a target due date for their next mammogram.
--- NOTE | 2021-10-04 14:34 | HM_ITS ---
Total monitoring time 13 days and 15 hours. Underlying rhythm is sinus. Minimum heart rate 59/Min. Maximum 138/Min. Average 81/Min. No pauses. Rare supraventricular ectopy with the burden of 0.05%. 20 supraventricular episodes. Longest 33 beats (possible atrial fibrillation). Rare PVCs with minimal burden. No patient events. MTDD
== END ==
LOC: HO.CARD 14:29
PROVIDERS: PCP Internal Medicine; Visit Provider Internal Medicine
DX: Z12.31 Encounter for screening mammogram for malignant neoplasm of breast (principal); I48.0 Paroxysmal atrial fibrillation
CPT/HCPCS: 77063; 77067; 93246

== ENCOUNTER 2021-10-14 12:30 | Outpatient (REF) | payer MEDICARE, MEDICAID, SELFPAY ==
--- NOTE | ~2021-10-14 | MM_ITS ---
EXAMINATION: MM DIAGNOSTIC DIGITAL BREAST TOMOSYNTHESIS, RIGHT US DIAGNOSTIC ULTRASOUND BREAST, RIGHT CLINICAL INFORMATION: Recall from screening for spiculated density posterior upper right breast in area of recent port removal, likely sequela from port. COMPARISON: Mammography: 10/04/2021, 08/03/2020, 04/14/2019, 03/21/2018 TECHNIQUE: Digital breast tomosynthesis is performed. 2D images are generated from the tomosynthesis. The following views are obtained: Right MLO with scar marker. Ultrasound upper right breast is targeted to the area of prior port removal/scar. Grayscale imaging and color Doppler are performed without and with harmonics. FINDINGS: There are scattered areas of fibroglandular density (ACR BI-RADS breast composition Category b). The additional view shows the spiculated asymmetric density to be less conspicuous. The scar marker overlies the site of recent imaging concern. Ultrasound upper right breast demonstrates a circumscribed complicated cystic lesion at the deep dermis 12:00 position 10 cm from nipple and measuring 0.7 x 0.5 cm. This corresponds to the area of scarring. There is a claw sign with the skin. No subdermal extension. No internal or peripheral vascularity on color Doppler. No edema tracking in soft tissue planes. No abscess demonstrated. Results are discussed with the patient at time of visit. The finding on mammography and ultrasound appears to correspond to sequela from the recent port removal, small intradermal hematoma. MM/MM tomosynthesis added views R IMPRESSION: Small intradermal hematoma posterior 12:00 right breast at site of recent port removal. No internal or peripheral color flow. ASSESSMENT: BI-RADS 2: Benign RECOMMENDATION: 1. Patient may be followed clinically as needed. 2. Otherwise, routine annual screening mammography. This patient's information was entered into a reminder system with a target due date for their next mammogram.
== END 2021-10-14 12:31 | disposition home or self-care (01) ==
LOC: HO.MAMMO 12:30
PROVIDERS: Visit Provider Surgery
DX: N64.89 Other specified disorders of breast (principal)
CPT/HCPCS: 76642; 77061; 77065

== ENCOUNTER → 2021-11-28 14:12 | Outpatient (BNVA) | payer MEDICARE, MEDICAID, SELFPAY | PROVIDERS: PCP Internal Medicine; Referring Provider Internal Medicine; Visit Provider Internal Medicine | DX: I48.0 Paroxysmal atrial fibrillation (principal) | CPT/HCPCS: 99212 ==

== ENCOUNTER → 2022-01-18 13:55 | Outpatient (BNVA) | payer OTHER, SELFPAY | PROVIDERS: PCP Internal Medicine; Visit Provider Internal Medicine Endocrinology, Diabetes & Metabolism | DX: E11.65 Type 2 diabetes mellitus with hyperglycemia (principal); E11.21 Type 2 diabetes mellitus with diabetic nephropathy; E11.42 Type 2 diabetes mellitus with diabetic polyneuropathy; N18.4 Chronic kidney disease, stage 4 (severe); N17.9 Acute kidney failure, unspecified; M81.0 Age-related osteoporosis without current pathological fracture; M10.9 Gout, unspecified; E03.9 Hypothyroidism, unspecified; G80.9 Cerebral palsy, unspecified; F89 Unspecified disorder of psychological development; Z91.010 Allergy to peanuts; Z79.4 Long term (current) use of insulin; Z79.899 Other long term (current) drug therapy | CPT/HCPCS: 82947; 83036 ==

== ENCOUNTER 2022-01-30 14:50 | Outpatient (REF) | payer OTHER, SELFPAY ==
[2022-01-30 19:16] LABS: Anion Gap 14 (12-20); Blood Urea Nitrogen 38 mg/dL (9-16); Calcium 9.5 mg/dL (8.4-10.2); Carbon Dioxide 24 mmol/L (22-29); Chloride 102 mmol/L (96-108); Estimated Glomerular Filt Rate 38; Glucose Random 252 mg/dL (60-115); Potassium 5.2 mmol/L (3.3-5.1); Sodium 135 mmol/L (135-145)
[2022-01-31 11:22] LABS: Tacrolimus Prograf 5.8 mcg/L
== END 2022-01-30 14:51 | disposition home or self-care (01) ==
LOC: HO.LAB 14:50
PROVIDERS: PCP Family Medicine; Visit Provider Internal Medicine Hypertension Specialist
DX: N18.31 Chronic kidney disease, stage 3a (principal); Z79.899 Other long term (current) drug therapy
CPT/HCPCS: 36415; 80048; 80197

== ENCOUNTER 2022-02-01 14:57 | Outpatient (REF) | payer OTHER, SELFPAY ==
[2022-02-01 16:17] LABS: Creatinine Urine 62.77 mg/dL; Total Protein Urine Random < 7 mg/dL (<12)
== END 2022-02-01 14:58 | disposition home or self-care (01) ==
LOC: HO.LNP 14:57
PROVIDERS: Visit Provider Internal Medicine Hypertension Specialist
DX: N18.31 Chronic kidney disease, stage 3a (principal)
CPT/HCPCS: 84156

== ENCOUNTER → 2022-02-09 13:48 | Outpatient (BNVA) | payer OTHER, SELFPAY | PROVIDERS: PCP Family Medicine; Visit Provider Registered Nurse Diabetes Educator | DX: Z13.89 Encounter for screening for other disorder (principal) ==

== ENCOUNTER → 2022-04-05 13:35 | Outpatient (BNVA) | payer OTHER, SELFPAY | PROVIDERS: PCP Family Medicine; Visit Provider Registered Nurse Diabetes Educator | DX: E11.9 Type 2 diabetes mellitus without complications (principal) | CPT/HCPCS: 95250 ==

== ENCOUNTER → 2022-04-07 09:58 | Outpatient (BNVA) | payer OTHER, SELFPAY | PROVIDERS: PCP Family Medicine; Referring Provider Family Medicine; Visit Provider Surgery | DX: C50.912 Malignant neoplasm of unspecified site of left female breast (principal) ==

== ENCOUNTER → 2022-04-19 14:02 | Outpatient (BNVA) | payer OTHER, SELFPAY | PROVIDERS: PCP Family Medicine; Visit Provider Internal Medicine Endocrinology, Diabetes & Metabolism | DX: E11.21 Type 2 diabetes mellitus with diabetic nephropathy (principal); M81.0 Age-related osteoporosis without current pathological fracture; E03.9 Hypothyroidism, unspecified | CPT/HCPCS: 82947; 83036 ==

== ENCOUNTER → 2022-07-20 13:24 | Outpatient (BNVA) | payer OTHER, SELFPAY | PROVIDERS: PCP Family Medicine; Visit Provider Internal Medicine Endocrinology, Diabetes & Metabolism | DX: E11.65 Type 2 diabetes mellitus with hyperglycemia (principal); E11.21 Type 2 diabetes mellitus with diabetic nephropathy; M81.0 Age-related osteoporosis without current pathological fracture; E03.9 Hypothyroidism, unspecified | CPT/HCPCS: 82947; 83036 ==

== ENCOUNTER 2022-08-01 08:48 | Outpatient (REF) | payer OTHER, SELFPAY ==
[2022-08-01 09:38] LABS: Anion Gap 17 (12-20); Blood Urea Nitrogen 35 mg/dL (9-16); Calcium 9.1 mg/dL (8.4-10.2); Carbon Dioxide 21 mmol/L (22-29); Chloride 102 mmol/L (96-108); Estimated Glomerular Filt Rate 34; Potassium 5.1 mmol/L (3.3-5.1); Sodium 135 mmol/L (135-145)
== END 2022-08-01 08:49 | disposition home or self-care (01) ==
LOC: HO.LAB 08:48
PROVIDERS: PCP Family Medicine; Visit Provider Internal Medicine Hypertension Specialist
DX: E11.22 Type 2 diabetes mellitus with diabetic chronic kidney disease (principal); N18.32 Chronic kidney disease, stage 3b
CPT/HCPCS: 36415; 80051; 82310; 82565; 84520

== ENCOUNTER 2022-10-10 14:48 | Outpatient (REF) | payer OTHER, SELFPAY ==
--- NOTE | ~2022-10-10 | MM_ITS ---
EXAMINATION: MM SCREENING DIGITAL BREAST TOMOSYNTHESIS, RIGHT CLINICAL INFORMATION: Screening. Asymptomatic. Left mastectomy for breast cancer 2019. COMPARISON: Mammography: 10/04/2021, 08/03/2020, 04/14/2019 TECHNIQUE: Digital breast tomosynthesis is performed in both the craniocaudal and mediolateral oblique views along with computer-aided detection (CAD). Synthesized 2D images are generated from the tomosynthesis. FINDINGS: There are scattered areas of fibroglandular density (ACR BI-RADS breast composition Category b). Breast tissue composition borders on heterogeneously dense. There is fibronodular parenchymal pattern similar to prior studies. No developing density or architectural abnormality. There are scattered benign calcifications, similar to prior study. The axilla and skin contours are unremarkable. MM/MM tomosynthesis screening RT IMPRESSION: No mammographic evidence of malignancy. ASSESSMENT: BI-RADS 2: Benign RECOMMENDATION: Routine annual mammography screening. This patient's information was entered into a reminder system with a target due date for their next mammogram.
--- NOTE | ~2022-10-10 | MM_ITS ---
EXAMINATION: BONE DENSITOMETRY CLINICAL INDICATION: Osteopenia. COMPARISON: Previous BD dated 08/03/2020 and baseline BD dated 10/31/2005. TECHNIQUE: Using a [employer] DXA System (software version: 13.1) manufactured by [employer], dual-energy x-ray absorptiometry was performed of the lumbar spine and left hip. The images are of good technical quality. Summary results are attached. FINDINGS: AP SPINE L1-L4: Current: BMD 1.139 g/cm2, Z-score 0.9, T-score -0.3, normal, 2.4% decrease from previous, 8.7% increase from baseline (<5% change is not significant). Prior: BMD 1.167 g/cm2. Baseline: BMD 1.048 g/cm2. LEFT FEMUR, NECK: Current: BMD 0.803 g/cm2, Z-score -0.3, T-score -1.7, osteopenia. Prior: BMD 0.769 g/cm2. Baseline: BMD 0.875 g/cm2. LEFT FEMUR, TOTAL: Current: BMD 0.785 g/cm2, Z-score -0.7, T-score -1.8, osteopenia, 6.4% decrease from previous, 9.4% decrease from baseline (<5% change is not significant). Prior: BMD 0.839 g/cm2. Baseline: BMD 0.866 g/cm2. IDENTIFIED RISK FACTORS: Renal, secondary osteoporosis, menopause. HISTORY OF FRACTURE: None listed. MEDICATIONS: Calcium supplements or multivitamin, vitamin D. MM/XR DEXA axial skeleton IMPRESSION: 1. DIAGNOSIS: Osteopenia based on the lowest T-score value of -1.8 in the total femur applying World Health Organization criteria. 2. 10-YEAR FRACTURE RISK PREDICTION, FRAX: Major osteoporotic fracture (clinical spine, forearm, hip or shoulder) 9.7%. Hip fracture 1.3%. 3. Treatment Recommendations: NOF guidelines recommend consideration for treatment in postmenopausal women and men age 50 and older presenting with the following: -A hip or vertebral (clinical or morphometric) fracture. -T-score less than or equal to -2.5 at the femoral neck or spine after appropriate evaluation to exclude secondary causes. -Low bone mass at the hip or spine and a 10-year fracture probability by FRAX of greater than or equal to 3% for hip fracture or greater than or equal to 20% for major osteoporotic fracture based on the [place] adapted WHO algorithm. 4. Other Recommendations: All treatment decisions require clinical judgment and consideration of individual patient factors, including patient preferences, comorbidities, previous drug use, risk factors not captured in the FRAX model (e.g. frailty, falls, vitamin D deficiency, increased bone turnover, interval significant decline in bone density) and possible under or overestimation of fracture risk by FRAX. Additional medical evaluation for secondary cause of low bone mineral density may be appropriate. FUTURE SCAN RECOMMENDATION: People with diagnosed cases of osteoporosis or at high risk for fracture should have regular bone mineral density tests. For patients eligible for Medicare, routine testing is allowed once every 2 years. The testing frequency can be increased to one year for patients who have rapidly progressing disease, those who are receiving or discontinuing medical therapy to restore bone mass, or have additional risk factors.
== END 2022-10-10 14:49 | disposition home or self-care (01) ==
LOC: HO.MAMMO 14:48
PROVIDERS: PCP Family Medicine; Visit Provider Internal Medicine
DX: Z12.31 Encounter for screening mammogram for malignant neoplasm of breast (principal); Z13.820 Encounter for screening for osteoporosis; M85.80 Other specified disorders of bone density and structure, unspecified site; Z78.0 Asymptomatic menopausal state
CPT/HCPCS: 77063; 77067; 77080

== ENCOUNTER 2022-11-22 13:23 | Outpatient (REF) | payer OTHER, SELFPAY ==
[2022-11-22 16:57] LABS: Free T4 (Free Thyroxine) 1.29 ng/dL (0.71-1.85); Thyroid Stimulating Hormone 1.55 uIU/mL (0.32-4.0)
== END 2022-11-22 13:24 | disposition home or self-care (01) ==
LOC: HO.LAB 13:23
PROVIDERS: PCP Family Medicine; Visit Provider Internal Medicine Endocrinology, Diabetes & Metabolism
DX: E03.9 Hypothyroidism, unspecified (principal); E11.21 Type 2 diabetes mellitus with diabetic nephropathy; M81.0 Age-related osteoporosis without current pathological fracture
CPT/HCPCS: 36415; 82947; 83036; 84439; 84443

== ENCOUNTER → 2023-05-24 14:15 | Outpatient (BNVA) | payer OTHER, SELFPAY | PROVIDERS: Visit Provider Internal Medicine Endocrinology, Diabetes & Metabolism | DX: E11.21 Type 2 diabetes mellitus with diabetic nephropathy (principal); M81.0 Age-related osteoporosis without current pathological fracture; E03.9 Hypothyroidism, unspecified; E11.22 Type 2 diabetes mellitus with diabetic chronic kidney disease; N18.4 Chronic kidney disease, stage 4 (severe) | CPT/HCPCS: 82947; 83036 ==

== ENCOUNTER 2023-06-20 14:15 | Outpatient (AMB) | payer OTHER, SELFPAY ==
--- NOTE | 2023-06-20 14:48 | MHC.AMDMED ---
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 Accompanied by: Brother Allergies Peanut Butter Allergy (Mild, Verified 05/24/23 14:22) Rash HPI Comprehensive Diabetes Asmnt Most Recent Diabetes Results: Creatinine 0.97 mg/dL (0.5-1.4) 03/02/23 Blood Urea Nitrogen 25 mg/dL (9-16) H 03/02/23 Sodium 141 mmol/L (135-145) 03/02/23 Potassium 4.3 mmol/L (3.3-5.1) 03/02/23 Chloride 107 mmol/L (96-108) 03/02/23 Carbon Dioxide 24 mmol/L (22-29) 03/02/23 Calcium 9.1 mg/dL (8.4-10.2) 03/02/23 AST 32 U/L (5-31) H 03/02/23 ALT 25 U/L (0-31) 03/02/23 Total Protein 6.7 g/dL (6.5-8.0) 03/02/23 Albumin 3.4 g/dL (3.5-5.0) L 03/02/23 [facility] Medical History Abnormal ultrasound of breast Acidosis, lactic Age-related osteoporosis without current pathological fracture MARIA ESTHER (acute kidney injury) Bowel obstruction Cerebral palsy Chronic kidney disease, stage 3 unspecified Class 1 obesity with body mass index (BMI) of 30.0 to 30.9 in adult Developmental disability Diabetes type 2, uncontrolled Ductal carcinoma in situ of left breast Essential (primary) hypertension Hyperlipidemia, unspecified Hypothyroidism, unspecified Invasive ductal carcinoma of left breast detention (current) use of insulin Paroxysmal atrial fibrillation Pneumonia due to COVID-19 virus Tachyarrhythmia Type 2 diabetes mellitus with diabetic nephropathy Surgical History History of breast surgery History of liver transplant History of modified radical mastectomy of left breast (~10/07/20) History of splenectomy S/P breast lumpectomy Family History Father Aneurysm Mother Cancer Paternal Grandfather Diabetes Brother No problems noted. Social History Household Members: Caregiver Housing: Assisted Living Facility Are you a primary personal caregiver to a significant other at home: No Do you presently have visiting nurse or other home services: No Alcohol intake: never Patient Tobacco Use Status: Never used Tobacco Second Hand Smoke Exposure: No Advance Directives Date on File: 12/27/20 service: No Current occupational status: disabled Assessment & Plan Assessment & Plan (1) Diabetes type 2, uncontrolled: Code(s): E11.65 - Type 2 diabetes mellitus with hyperglycemia Plan: Personal Continuous Glucose Monitor: Patients CGM information reviewed Reviewed patient's sensor data: Hypoglycemia: ? 0% Hyperglycemia:? 20% Time in Range:? 80% Average glucose for the last 2 weeks?145 mg/dL at last visit with Dr. Mccarty patient was experiencing 9% hypoglycemia. patient's insulin was adjusted and patient is now experiencing 0% hypoglycemia time in range is at target Reviewed how to interpret trend arrows Reminded patient that to check finger sticks if symptoms do not match sensor reading. Discussed lag time between finger stick and sensor data.? Patient [facility] able to insert sensor at home without issue.? Patient Instructions: patient will follow-up with gauge maker as needed Coding Level of Care Code Est Pt Level 1 (68501) Diagnoses Diabetes type 2, uncontrolled E11.65
== END 2023-06-20 15:26 | disposition home or self-care (01) ==
PROVIDERS: Visit Provider Registered Nurse Diabetes Educator
DX: E11.65 Type 2 diabetes mellitus with hyperglycemia (principal)
CPT/HCPCS: 99211

== ENCOUNTER → 2023-06-20 14:15 | Outpatient (BNVA) | payer OTHER, SELFPAY | PROVIDERS: Visit Provider Registered Nurse Diabetes Educator ==

== ENCOUNTER 2023-08-14 13:47 | Outpatient (REF) | payer OTHER, SELFPAY ==
[2023-08-14 16:13] LABS: Free T4 (Free Thyroxine) 1.04 ng/dL (0.71-1.85); Thyroid Stimulating Hormone 2.61 uIU/mL (0.32-4.0)
== END 2023-08-14 13:48 | disposition home or self-care (01) ==
LOC: HO.LAB 13:47
PROVIDERS: Visit Provider Internal Medicine Endocrinology, Diabetes & Metabolism
DX: E03.9 Hypothyroidism, unspecified (principal)
CPT/HCPCS: 36415; 84439; 84443

== ENCOUNTER 2023-09-21 06:12 | Outpatient (REF) | payer OTHER, SELFPAY ==
[2023-09-21 07:46] LABS: Cholesterol 259 mg/dL (<200); HDL Cholesterol 39 mg/dL (>40); LDL Cholesterol Calculated 166 mg/dL (<100); Triglycerides 271 mg/dL (<150)
== END 2023-09-21 06:13 | disposition home or self-care (01) ==
LOC: HO.LAB 06:12
PROVIDERS: Visit Provider Internal Medicine Endocrinology, Diabetes & Metabolism
DX: E11.21 Type 2 diabetes mellitus with diabetic nephropathy (principal)
CPT/HCPCS: 36415; 80061

== ENCOUNTER 2023-09-25 14:14 | Outpatient (AMB) | payer OTHER, SELFPAY ==
--- NOTE | 2023-09-25 14:17 | A.OFFVIS_ITS ---
Intake Vital Signs 09/25/23 14:20 Weight 177 lb 0.499 oz BP 138/84 Blood Pressure Location Lt brachial Position Sitting Pulse 106 H Pulse Source Pulse Oximeter Intake Visit Reasons: f/u Type 2 DM, hypothyroidism and osteopenia Intake Note: Patient present today to follow up on Type 2 Diabetes Mellitus, Hypothyroidism and Osteopenia. 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 She has hyperparathyroidism, hypothyroidism and osteopenia. She developed osteopenia after kidney transplant, she was treated initially with calcitonin for about 4 years then she has been only on monitoring her bone density has been stable on drug holiday. She has been currently on vitamin-D 50,000 international units every other week and calcium Tums 1000 twice a day. She has never had a fracture. She also has hypothyroidism and she has been on levothyroxine 88 mcg every day. She does take all her pills at once. Despite that her thyroid function test has been normal. She also has hyperparathyroidism. She did not have any indication for surgery in the past and her calcium levels remain stable. She is feeling well, she has no complaints. Her brother informs me that the hat lining paster decrease Lasix to 20 mg. And he believes that is why she gained a little bit of weight. DM was diagnosed 2000 after Liver transplant. She has PMH of hypothyroidism, Gout, Basal cell carcinoma, osteopenia, hyperparathyroidism , she is been treated for all endocrine disorder by Dr emil Mejia at [facility]. CKD stage 4 secondary to Diabetes. Last ophthalmology evaluation:l at [place] 12/2022 , no need for photocoagulation or VEGF. , denies polydipsia, polyuria, denies nausea, vomiting or diarrhea. She is followed by Nephrology for CKD and hyperkalemia 08/03/2020 DEXA AP SPINE L1-L3 (excluding L4): The data of L1-L4 has been changed to exclude the L4 vertebral body, because degenerative changes at this level may cause overestimation of lumbar spine density. Current: BMD 1.098 g/cm2, Z-score 0.6, T-score -0.6, normal, 2.3% decrease from previous, 5.0% increase from baseline (<5% change is not significant). Prior: BMD 1.124 g/cm2. Baseline: BMD 1.046 g/cm2. LEFT FEMUR, NECK: Current: BMD 0.769 g/cm2, Z-score -0.7, T-score -1.9, osteopenia. Prior: BMD 0.839 g/cm2. Baseline: BMD 0.875 g/cm2. LEFT FEMUR, TOTAL: Current: BMD 0.839 g/cm2, Z-score -0.4, T-score -1.3, osteopenia, 1.3% increase from previous, 3.1% decrease from baseline (<5% change is not significant). Prior: BMD 0.828 g/cm2. Baseline: BMD 0.866 g/cm2. Laboratory Tests 06/02/21 06/02/21 06/07/21 15:03 15:03 06:50 Hgb 13.5 Hct 41.7 Sodium 140 Potassium 4.9 Estim Creat Clear Calc 42.5 Random Glucose 199 H Fasting Glucose 129 H D Hemoglobin A1c % Calcium 9.9 Albumin 3.9 Triglycerides 178 Cholesterol 178 LDL Cholesterol, C alc 102 HDL Cholesterol 41 06/07/21 06:50 Hgb Hct Sodium Potassium Estim Creat Clear Calc Random Glucose Fasting Glucose Hemoglobin A1c % 8.2 Calcium Albumin Triglycerides Cholesterol LDL Cholesterol, C alc HDL Cholesterol Laboratory Tests 02/18/21 03/03/21 03/03/21 07:34 15:35 15:35 Hgb 13.5 Hct 41.5 Sodium 142 Potassium Creatinine Estimated GFR Random Glucose 175 H Calcium 9.4 Albumin 3.8 25-OH Vitamin D To leopoldo 38.6 TSH 0.75 Free T4 1.08 04/15/21 14:00 Hgb Hct Sodium Potassium 4.4 Creatinine 1.01 Estimated GFR 55 Random Glucose Calcium Albumin 25-OH Vitamin D To leopoldo TSH Free T4 Laboratory Tests 11/24/20 11/24/2020 07:05 07:05 Unknown Hgb Hct Sodium Potassium Creatinine Estim Creat Clear Calc Random Glucose Estimat Average Gl ucose 146 Hemoglobin A1c % 6.7 Calcium AST ALT Alkaline Phosphata se Albumin Triglycerides 218 Cholesterol 169 LDL Cholesterol, C alc 90 HDL Cholesterol 36 25-OH Vitamin D To leopoldo TSH 1.08 Urine Creatinine 23.32 Urine Microalbumin < 5.0 Microalb/Creat Rat io TNP 11/30/20 11/30/20 15:26 15:26 Hgb 12.8 Hct 39.5 Sodium 140 Potassium 5.0 Creatinine 1.25 Estim Creat Clear Calc 41.1 Random Glucose 160 H Estimat Average Gl ucose Hemoglobin A1c % Calcium 9.0 AST 39 H ALT 43 H Alkaline Phosphata se 149 H Albumin 3.8 Triglycerides Cholesterol LDL Cholesterol, C alc HDL Cholesterol 25-OH Vitamin D To leopoldo 33.4 TSH Urine Creatinine Urine Microalbumin Microalb/Creat Rat io [facility] Medical History Abnormal ultrasound of breast Acidosis, lactic Age-related osteoporosis without current pathological fracture MARIA ESTHER (acute kidney injury) Bowel obstruction Cerebral palsy Chronic kidney disease, stage 3 unspecified Class 1 obesity with body mass index (BMI) of 30.0 to 30.9 in adult Developmental disability Diabetes type 2, uncontrolled Ductal carcinoma in situ of left breast Essential (primary) hypertension Hyperlipidemia, unspecified Hypothyroidism, unspecified Invasive 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 Social History Household Members: Caregiver Housing: Assisted Living Facility Are you a primary director of critical care to a significant other at home: No Do you presently have visiting nurse or other home services: No Alcohol intake: never Patient Tobacco Use Status: Never used Tobacco Second Hand Smoke Exposure: No Advance Directives Date on File: 12/27/20 service: No Current occupational status: disabled Physical Exam Vital Signs: Last Vital Signs Pulse 106 H 09/25/23 14:20 BP 138/84 09/25/23 14:20 Absence of Cushingoid features. Absence of acromegalic features. Neck exam reveals nl size thyroid about 15 gms. No thyroid nodules palpable. No carotid bruits present. Lungs CTA. Heart S1 S2, Reg R/R. No M/R/ G. Skin exam reveals absence of vitiligo or acanthosis nigricans. Abdominal exam reveals Soft NT/ND with NA BS. No organomegaly present. Neck Other: . Extrem Other: Visual exam of foot performed. No ulcerations or open lesions. No onchomycosis, no callouses.Pulses 2 + distally Sensation intact to monofilament exam. Vibratory sensation sensed is intact with 128 Hz tuning fork Results Reviewed Results Reviewed: 09/25/23 14:26 Glucose, Whole Blood Routine Laboratory Last Values Glucose (Clinic) 211 mg/dL (60-115) H 09/25/23 14:26 Assessment & Plan Assessment & Plan (1) Type 2 diabetes mellitus with diabetic nephropathy: Comment: IDDM Code(s): E11.21 - Type 2 diabetes mellitus with diabetic nephropathy Plan: This is a 67-year-old white female with a history of type 2 diabetes being [place] ated with metformin, Trulicity, Prandin and premixed insulin with improving glycemic control and known microvascular complications namely CKD stage 4. Glycemic control is probably optimal considering patient's psychosocial circumstances Plan is to (2) Age-related osteoporosis without current pathological fracture: Code(s): M81.0 - Age-related osteoporosis without current pathological fracture Plan: She has low bone mass on DEXA bone density.. Bone density is stable. Would co ntinue calcium and vitamin-D supplementation (3) Hypothyroidism, unspecified: Code(s): E03.9 - Hypothyroidism, unspecified Plan: Clinically and biochemically euthyroid on 88 mcg levothyroxine. Clinically and biochemically euthyroid Plan is to continue current management Medications: New atorvastatin 20 mg PO DAILY 30 tabs 4RF Coding Level of Care Code Est Pt Level 4 (83314) Diagnoses Type 2 diabetes mellitus with diabetic nephropathy E11.21 Age-related osteoporosis without current pathological fracture M81.0 Hypothyroidism, unspecified E03.9
[2023-09-25 14:20] VITALS: BP 138/84; PULSE 106
[2023-09-25 14:30] LABS: Glucose, Whole Blood 211 mg/dL (60-115)
== END 2023-09-25 14:41 | disposition home or self-care (01) ==
PROVIDERS: Visit Provider Internal Medicine Endocrinology, Diabetes & Metabolism
DX: E11.21 Type 2 diabetes mellitus with diabetic nephropathy (principal); M81.0 Age-related osteoporosis without current pathological fracture; E03.9 Hypothyroidism, unspecified; E11.65 Type 2 diabetes mellitus with hyperglycemia
CPT/HCPCS: 99214

== ENCOUNTER 2023-09-25 14:14 | Outpatient (REF) | payer OTHER, SELFPAY ==
[2023-09-25 15:40] LABS: Creatinine Urine 61.19 mg/dL
== END 2023-09-25 14:15 | disposition home or self-care (01) ==
LOC: HO.LNP 14:14
PROVIDERS: Visit Provider Internal Medicine Endocrinology, Diabetes & Metabolism
DX: E11.21 Type 2 diabetes mellitus with diabetic nephropathy (principal); M81.0 Age-related osteoporosis without current pathological fracture; E03.9 Hypothyroidism, unspecified
CPT/HCPCS: 82043; 82570; 82947; 83036

== ENCOUNTER 2024-03-25 14:27 | Outpatient (AMB) | payer OTHER, SELFPAY ==
[2024-03-25 14:29] VITALS: BP 116/58; PULSE 102; BMI 31.5
--- NOTE | 2024-03-25 14:29 | A.OFFVIS_ITS ---
Vital Signs 03/25/24 14:29 Height 5 ft 1 in Weight 166 lb 10.711 oz BMI 31.5 BP 116/58 L Blood Pressure Location Lt brachial Position Sitting Pulse 102 H Pulse Source Pulse Oximeter Intake Visit Reasons: Type 2 DM, hypothyroidism Intake Note: Patient present today to follow up on Type 2 Diabetes Mellitus and Hypothyroidism. 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: No Accompanied by: Brother Allergies Peanut Butter Allergy (Mild, Verified 03/25/24 14:35) Rash Medication List - Last Reconciled 03/25/24 by Dex Mccarty MD alcohol swabs 1 pad topical DAILY allopurinol 300 mg PO DAILY apixaban (Eliquis) 5 mg PO BID 90 days atorvastatin 20 mg PO DAILY blood sugar diagnostic (ROX MedicalTouch Verio test strips) As directed 4 times a day blood-glucose meter (ROX MedicalTouch Verio Flex Meter) As directed 4 times daily calcium carbonate 1,000 mg PO BID cholecalciferol (vitamin D3) 1,250 mcg PO Q14D diltiazem HCl CD 180 mg PO DAILY dulaglutide (Trulicity) 3 mg (0.5 mL) subcut QWEEK 30 days flash glucose scanning reader (FreeStyle Ev 2 [place]) As directed flash glucose scanning reader (FreeStyle Ev 2 [place]) As directed flash glucose sensor (FreeStyle Ev 2 Sensor kit) flash glucose sensor (FreeStyle Ev 2 Sensor kit) every 14 days flash glucose sensor (FreeStyle Ev 2 Sensor kit) As directed flash glucose sensor (FreeStyle Ev 14 Day Sensor kit) As directed furosemide 20 mg PO DAILY insulin lispro protamin-lispro 100 unit/mL (75-25) (Humalog Mix 75-25 KwikPen) subcutaneously 2 times a day; 22 units before breakfast and 16 units before dinner lancets 3 times a day levothyroxine 88 mcg PO DAILY@0600 90 days metformin 1 tab PO BID metoprolol succinate ER 25 mg PO DAILY mycophenolate mofetil 250 mg PO BID omega 8-hme-qrf-fish oil 1,000 mg (120 mg-180 mg) (Fish Oil) 1 cap PO DAILY pediatric multivitamin no.42 (Children's Multivitamin chewable tablet) 1 tab PO DAILY pen needle, diabetic As directed pen needle, diabetic As directed for blood sugar checks. repaglinide Two tablets with breakfast, 1 tablet with lunch and dinner PO. 90 days tacrolimus 0.5 mg PO DAILY tamoxifen 20 mg PO DAILY HPI Comments Details: 68 yo female today for fup visit, for diabetes She is currently , and Trulicity 3 mg weekly, Prandin 1 mg 0.5 mg and dinner 0.5 mg 75/25 twice a day 22 units before breakfast and 16 units dinner . Ev download shows she is using the sensor 62% of the time. Average glucose is 176 with variability 21.8%. Glucoses ranged 60% of the time with 40% hyperglycemia and no hypoglycemia She has hyperparathyroidism, hypothyroidism and osteopenia. She developed osteopenia after kidney transplant, she was treated initially with calcitonin for about 4 years then she has been only on monitoring her bone density has been stable on drug holiday. She has been currently on vitamin-D 50,000 international units every other week and calcium Tums 1000 twice a day. She has never had a fracture. She also has hypothyroidism and she has been on levothyroxine 88 mcg every day. She does take all her pills at once. Despite that her thyroid function test has been normal. She also has hyperparathyroidism. She did not have any indication for surgery in the past and her calcium levels remain stable. She is feeling well, she has no complaints. Her brother informs me that the upholsterer outside decrease Lasix to 20 mg. And he believes that is why she gained a little bit of weight. DM was diagnosed 2000 after Liver transplant. She has PMH of hypothyroidism, Gout, Basal cell carcinoma, osteopenia, hyperparathyroidism , she is been treated for all endocrine disorder by Dr emil Mejia at [facility]. CKD stage 4 secondary to Diabetes. Last ophthalmology evaluation:l at [facility] , no need for photocoagulation or VEGF. , denies polydipsia, polyuria, denies nausea, vomiting or diarrhea. She is followed by Nephrology for CKD and hyperkalemia 08/03/2020 DEXA AP SPINE L1-L3 (excluding L4): The data of L1-L4 has been changed to exclude the L4 vertebral body, because degenerative changes at this level may cause overestimation of lumbar spine density. Current: BMD 1.098 g/cm2, Z-score 0.6, T-score -0.6, normal, 2.3% decrease from previous, 5.0% increase from baseline (<5% change is not significant). Prior: BMD 1.124 g/cm2. Baseline: BMD 1.046 g/cm2. LEFT FEMUR, NECK: Current: BMD 0.769 g/cm2, Z-score -0.7, T-score -1.9, osteopenia. Prior: BMD 0.839 g/cm2. Baseline: BMD 0.875 g/cm2. LEFT FEMUR, TOTAL: Current: BMD 0.839 g/cm2, Z-score -0.4, T-score -1.3, osteopenia, 1.3% increase from previous, 3.1% decrease from baseline (<5% change is not significant). Prior: BMD 0.828 g/cm2. Baseline: BMD 0.866 g/cm2. Laboratory Tests 06/02/21 06/02/21 06/07/21 15:03 15:03 06:50 Hgb 13.5 Hct 41.7 Sodium 140 Potassium 4.9 Estim Creat Clear Calc 42.5 Random Glucose 199 H Fasting Glucose 129 H D Hemoglobin A1c % Calcium 9.9 Albumin 3.9 Triglycerides 178 Cholesterol 178 LDL Cholesterol, Calc 102 HDL Cholesterol 41 06/07/21 06:50 Hgb Hct Sodium Potassium Estim Creat Clear Calc Random Glucose Fasting Glucose Hemoglobin A1c % 8.2 Calcium Albumin Triglycerides Cholesterol LDL Cholesterol, Calc HDL Cholesterol Laboratory Tests 02/18/21 03/03/21 03/03/21 07:34 15:35 15:35 Hgb 13.5 Hct 41.5 Sodium 142 Potassium Creatinine Estimated GFR Random Glucose 175 H Calcium 9.4 Albumin 3.8 25-OH Vitamin D Total 38.6 TSH 0.75 Free T4 1.08 04/15/21 14:00 Hgb Hct Sodium Potassium 4.4 Creatinine 1.01 Estimated GFR 55 Random Glucose Calcium Albumin 25-OH Vitamin D Total TSH Free T4 Laboratory Tests 11/24/20 11/24/20 11/25/20 07:05 07:05 Unknown Hgb Hct Sodium Potassium Creatinine Estim Creat Clear Calc Random Glucose Estimat Average Glucose 146 Hemoglobin A1c % 6.7 Calcium AST ALT Alkaline Phosphatase Albumin Triglycerides 218 Cholesterol 169 LDL Cholesterol, Calc 90 HDL Cholesterol 36 25-OH Vitamin D Total TSH 1.08 Urine Creatinine 23.32 Urine Microalbumin < 5.0 Microalb/Creat Ratio TNP 11/30/20 11/30/20 15:26 15:26 Hgb 12.8 Hct 39.5 Sodium 140 Potassium 5.0 Creatinine 1.25 Estim Creat Clear Calc 41.1 Random Glucose 160 H Estimat Average Glucose Hemoglobin A1c % Calcium 9.0 AST 39 H ALT 43 H Alkaline Phosphatase 149 H Albumin 3.8 Triglycerides Cholesterol LDL Cholesterol, Calc HDL Cholesterol 25-OH Vitamin D Total 33.4 TSH Urine Creatinine Urine Microalbumin Microalb/Creat Ratio COUNTS INCLUDE 234 BEDS AT THE [facility] Medical History Abnormal ultrasound of breast Acidosis, lactic Age-related osteoporosis without current pathological fracture MARIA ESTHER (acute kidney injury) Bowel obstruction Cerebral palsy Chronic kidney disease, stage 3 unspecified Class 1 obesity with body mass index (BMI) of 30.0 to 30.9 in adult Developmental disability Diabetes type 2, uncontrolled Ductal carcinoma in situ of left breast Essential (primary) hypertension Hyperlipidemia, unspecified Hypothyroidism, unspecified Invasive ductal carcinoma of left breast 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 Social History Household Members: Caregiver Housing: Assisted Living Facility Are you a primary animal care technician to a significant other at home: No Do you presently have visiting nurse or other home services: No Alcohol intake: never Comment: pt HR still 120s Patient Tobacco Use Status: Never used Tobacco Second Hand Smoke Exposure: No Advance Directives Date on File: 12/27/20 service: No Current occupational status: disabled Physical Exam Vital Signs: Last Vital Signs Pulse 102 H 03/25/24 14:29 BP 116/58 L 03/25/24 14:29 BMI result Body Mass Index 31.5 Absence of Cushingoid features. Absence of acromegalic features. Neck exam reveals nl size thyroid about 15 gms. No thyroid nodules palpable. No carotid bruits present. Lungs CTA. Heart S1 S2, Reg R/R. No M/R/ G. Skin exam reveals absence of vitiligo or acanthosis nigricans. Abdominal exam reveals Soft NT/ND with NA BS. No organomegaly present. Neck Other: . Extrem Other: Visual exam of foot performed. No ulcerations or open lesions. No onchomycosis, no callouses.Pulses 2 + distally Sensation intact to monofilament exam. Vibratory sensation sensed is intact with 128 Hz tuning fork Results AMB Hemoglobin A1c AMB Hemoglobin A1c 8.3 % Last Edit by BRYAN Cruz on 03/25/24 15:06 Results Reviewed Results Reviewed: Laboratory Last Values Glucose (Clinic) 181 mg/dL (60-115) H 03/25/24 14:38 Hgb A1c (Clinic) 8.3 % (4.0-6.0) H 03/25/24 14:41 Assessment & Plan Assessment & Plan (1) Type 2 diabetes mellitus with diabetic nephropathy: Comment: IDDM Code(s): E11.21 - Type 2 diabetes mellitus with diabetic nephropathy Category: Medical Plan: This is a 67-year-old white female with a history of type 2 diabetes being treated with metformin, Trulicity, Prandin and premixed insulin with improving glycemic control and known microvascular complications namely CKD stage 4. Glycemic control is probably optimal considering patient's psychosocial circumstances Plan is to continue the current regimen. At this point, patient returned to the care of her primary care provider returned back to endocrinologyshould her HbA1c deteriorate to >9 (2) Age-related osteoporosis without current pathological fracture: Code(s): M81.0 - Age-related osteoporosis without current pathological fracture Category: Medical Plan: She has low bone mass on DEXA bone density.. Bone density is stable. Would continue calcium and vitamin-D supplementation. Can follow-up with her primary care provider who can recheck a DEXA bone density and if patient progresses to osteoporosis can not returned back to endocrinology or primary care provider can start anti resorptive like a bisphosphonate (3) Hypothyroidism, unspecified: Code(s): E03.9 - Hypothyroidism, unspecified Category: Medical Plan: Clinically euthyroid on 88 mcg levothyroxine. Plan is to check TSH and free T4. If above are normal, patient can follow up with the primary care provider for hypothyroidism and returned back to endocrinology as needed Orders: Orders AMB Hemoglobin A1c 03/25/24 E11.21 - Type 2 diabetes mellitus with diabetic nephropathy, Z13.9 - Encounter for screening, unspecified Coding Level of Care Code Est Pt Level 4 (22122) Diagnoses Type 2 diabetes mellitus with diabetic nephropathy E11.21 Age-related osteoporosis without current pathological fracture M81.0 Hypothyroidism, unspecified E03.9
[2024-03-25 14:43] LABS: Glucose, Whole Blood 181 mg/dL (60-115)
== END 2024-03-25 14:52 | disposition home or self-care (01) ==
PROVIDERS: Visit Provider Internal Medicine Endocrinology, Diabetes & Metabolism
DX: E11.21 Type 2 diabetes mellitus with diabetic nephropathy (principal); M81.0 Age-related osteoporosis without current pathological fracture; E03.9 Hypothyroidism, unspecified
CPT/HCPCS: 99214

== ENCOUNTER → 2024-03-25 14:27 | Outpatient (BNVA) | payer OTHER, SELFPAY | PROVIDERS: Visit Provider Internal Medicine Endocrinology, Diabetes & Metabolism | DX: E11.22 Type 2 diabetes mellitus with diabetic chronic kidney disease (principal); N18.4 Chronic kidney disease, stage 4 (severe); M81.0 Age-related osteoporosis without current pathological fracture; E03.9 Hypothyroidism, unspecified; Z79.899 Other long term (current) drug therapy | CPT/HCPCS: 82947; 83036 ==

== ENCOUNTER 2024-04-01 09:51 | Outpatient (REF) | payer OTHER, SELFPAY ==
[2024-04-01 11:51] LABS: Anion Gap 15 (12-20); Blood Urea Nitrogen 27 mg/dL (9-16); Carbon Dioxide 16 mmol/L (22-29); Chloride 113 mmol/L (96-108); Estimated Glomerular Filt Rate 34; Glucose Random 203 mg/dL (60-115); Potassium 3.9 mmol/L (3.3-5.1); Sodium 140 mmol/L (135-145)
[2024-04-01 12:09] LABS: Free T4 (Free Thyroxine) 1.05 ng/dL (0.71-1.85); Thyroid Stimulating Hormone 1.49 uIU/mL (0.32-4.0)
== END 2024-04-01 09:52 | disposition home or self-care (01) ==
LOC: HO.LAB 09:51
PROVIDERS: Visit Provider Internal Medicine Endocrinology, Diabetes & Metabolism
DX: E11.21 Type 2 diabetes mellitus with diabetic nephropathy (principal); E03.9 Hypothyroidism, unspecified
CPT/HCPCS: 36415; 80048; 84439; 84443

== ENCOUNTER 2024-04-07 11:04 | Outpatient (REF) | payer OTHER, SELFPAY ==
[2024-04-07 11:36] LABS: MANUAL DIFF FLAG NO
[2024-04-07 12:18] LABS: Basophils Absolute Auto 0.1 X10*3/uL (0.0-0.2); Basophils Percent Auto 0.5 % (0-2); Eosinophils Absolute Auto 0.3 X10*3/uL (0.0-0.4); Eosinophils Percent Auto 2.9 % (0-4); Hematocrit 38.7 % (37.0-47.0); Hemoglobin 12.9 g/dl (12.0-16.0); Imm Gran Abs Auto 0.03 X10*3/uL (0.00-0.03); Imm Gran Pct Auto 0.3 % (0.0-0.4); Lymphocytes Absolute Auto 4.8 X10*3/uL (1.2-4.9); Lymphocytes Percent Auto 47.6 % (20-40); Mean Corpuscular HGB Conc 33.3 g/dl (31.0-35.0); Mean Corpuscular Hemoglobin 30.4 pg (27.0-33.0); Mean Corpuscular Volume 91.3 fL (80.0-98.0); Mean Platelet Volume 10.2 fL (9.4-12.3); Monocytes Absolute Auto 1.3 X10*3/uL (0.1-1.2); Monocytes Percent Auto 12.9 % (2-11); NRBC Pct Auto 0.3 /100WBC (0.0-0.2); Neutrophils Absolute Auto 3.6 x10*3/uL (2.0-8.3); Neutrophils Percent Auto 35.8 % (45-73); Platelet Count 377 X10*3/uL (160-400); Red Blood Count 4.24 X10*6/uL (4.20-5.50); Red Cell Distribution Width 16.7 % (11.0-16.0)
[2024-04-07 12:54] LABS: Anion Gap 13 (12-20); Blood Urea Nitrogen 27 mg/dL (9-16); Calcium 9.6 mg/dL (8.4-10.2); Carbon Dioxide 24 mmol/L (22-29); Chloride 108 mmol/L (96-108); Estimated Glomerular Filt Rate 37; Potassium 4.7 mmol/L (3.3-5.1); Sodium 140 mmol/L (135-145); Uric Acid 3.1 mg/dL (2.4-5.7)
[2024-04-07 13:01] LABS: Vitamin D 25-OH Total 27.8 ng/mL (>30)
== END 2024-04-07 11:05 | disposition home or self-care (01) ==
LOC: HO.LAB 11:04
PROVIDERS: Absent Provider Internal Medicine Medical Oncology; PCP Nurse Practitioner; Visit Provider Internal Medicine
DX: N18.31 Chronic kidney disease, stage 3a (principal)
CPT/HCPCS: 36415; 80051; 82306; 82310; 82565; 84520; 84550; 85025

== ENCOUNTER 2024-07-04 08:20 | Outpatient (REF) | payer OTHER, SELFPAY ==
[2024-07-04 08:50] LABS: MANUAL DIFF FLAG NO
[2024-07-04 09:22] LABS: Basophils Absolute Auto 0.1 X10*3/uL (0.0-0.2); Basophils Percent Auto 0.8 % (0-2); Eosinophils Absolute Auto 0.4 X10*3/uL (0.0-0.4); Eosinophils Percent Auto 4.7 % (0-4); Hematocrit 42.7 % (37.0-47.0); Hemoglobin 14.1 g/dl (12.0-16.0); Imm Gran Abs Auto 0.03 X10*3/uL (0.00-0.03); Imm Gran Pct Auto 0.4 % (0.0-0.4); Lymphocytes Absolute Auto 3.4 X10*3/uL (1.2-4.9); Lymphocytes Percent Auto 43.3 % (20-40); Mean Corpuscular Hemoglobin 30.9 pg (27.0-33.0); Mean Corpuscular Volume 93.6 fL (80.0-98.0); Mean Platelet Volume 10.6 fL (9.4-12.3); Monocytes Absolute Auto 0.8 X10*3/uL (0.1-1.2); NRBC Pct Auto 0.4 /100WBC (0.0-0.2); Neutrophils Absolute Auto 3.2 x10*3/uL (2.0-8.3); Neutrophils Percent Auto 40.8 % (45-73); Platelet Count 358 X10*3/uL (160-400); Red Blood Count 4.56 X10*6/uL (4.20-5.50); Red Cell Distribution Width 15.4 % (11.0-16.0); White Blood Count 7.9 X10*3/uL (4.8-10.8)
[2024-07-04 09:29] LABS: Estimated Average Glucose 200 mg/dL; Hemoglobin A1c % 8.6 % (<6.0)
[2024-07-04 09:54] LABS: Parathyroid Hormone Intact 104.1 pg/mL (8.7-77.1)
[2024-07-04 10:50] LABS: Ferritin 50 ng/mL (10-250); Vitamin D 25-OH Total 30.8 ng/mL (>30)
[2024-07-04 11:42] LABS: Anion Gap 11 (12-20); Blood Urea Nitrogen 30 mg/dL (9-16); Calcium 9.3 mg/dL (8.4-10.2); Carbon Dioxide 25 mmol/L (22-29); Chloride 108 mmol/L (96-108); Estimated Glomerular Filt Rate 37; Iron 79 mcg/dL (30-160); Percent Iron Saturation 27 % (15-50); Phosphorus 3.1 mg/dL (2.7-4.5); Potassium 4.3 mmol/L (3.3-5.1); Sodium 140 mmol/L (135-145); Total Iron Binding Capacity 293 mcg/dL (228-428); Unsaturated Iron Binding 214 ug/dL; Uric Acid 4.4 mg/dL (2.4-5.7)
[2024-07-04 13:21] LABS: Magnesium 1.4 mg/dL (1.6-2.6)
[2024-07-05 12:44] LABS: Tacrolimus Prograf 6.1 mcg/L
== END 2024-07-04 08:21 | disposition home or self-care (01) ==
LOC: HO.LAB 08:20
PROVIDERS: PCP Nurse Practitioner; Visit Provider Internal Medicine
DX: N18.32 Chronic kidney disease, stage 3b (principal); N17.8 Other acute kidney failure; Z13.1 Encounter for screening for diabetes mellitus
CPT/HCPCS: 36415; 80051; 80197; 82306; 82310; 82565; 82610; 82728; 83036; 83540; 83735; 83970; 84100; 84520; 84550; 85025

== ENCOUNTER 2024-07-05 12:05 | Outpatient (REF) | payer OTHER, SELFPAY ==
[2024-07-07 12:22] LABS: Cancelled Urine SEE COMMENTS
[2024-07-07 13:25] LABS: Creatinine Urine 106.69 mg/dL
[2024-07-07 13:38] LABS: Microalbum/Creatinine Ratio Ur 1874.5 ug/mg cr (<30); Microalbumin Urine > 2000.0 mg/L
[2024-07-07 19:55] LABS: Protein/Creatinine Ratio, Ur 5.16 (<0.2); Total Protein Urine Random 551 mg/dL (<12)
== END 2024-07-05 12:06 | disposition home or self-care (01) ==
LOC: HO.LAB 12:05
PROVIDERS: Visit Provider Internal Medicine
DX: N18.32 Chronic kidney disease, stage 3b (principal); N17.8 Other acute kidney failure
CPT/HCPCS: 82043; 82570; 84156

== ENCOUNTER 2025-01-15 14:09 | Outpatient (REF) | payer OTHER, SELFPAY ==
--- OUTSIDE RECORDS SUMMARY | 2025-01-15 15:17 | XMS_ITS | Referral Summary ---
Author Organization [facility] Address [address] [place] [address] Care Team Providers Care Collaborative Teacher Name Role Phone Mallorie Draper Primary Care Provider [phone] Encounters Date Type Department Care Team Description 01/08/2025 Refill [facility] Liver Transplant Services [address] [place] [address] Eveline Calderon MD Liver replaced by transplant ([facility]) 12/11/2024 Refill [facility] Liver Transplant Services [address] [place] [address] Eveline Calderon MD Liver replaced by transplant ([facility]) 11/13/2024 Refill [facility] Liver Transplant Services [address] [place] [address] Eveline Calderon MD Liver replaced by transplant ([facility]) 10/16/2024 Refill [facility] Liver Transplant Services [address] [place] [address] Eveline Calderon MD Liver replaced by transplant ([facility]) from Last 3 Months Allergies Active Allergy Reactions Criticality Noted Date Comments No Known Drug Allergies Unknown Peanut Rash Piperacillin-Tazobactam Drug rash with e osinophilia and systematic symptoms 12/07/2022 Medications allopurinol (ZYLOPRIM) 300 mg tablet Take 300 mg by mouth daily. Active dilTIAZem CD (CARDIZEM CD) 180 mg 24 hr capsule Take 180 mg by mouth daily. 09/18/20 08 Active atorvastatin (LIPITOR) 20 mg tablet Take 20 mg by mouth daily. As directed 05/01/20 06 Active Freestyle Lite test strips TEST BLOOD SUGAR 3 TIMES A DAY 3 02/22/20 18 Active BD Insulin pen needle UF (MINI) 31 gauge x 02/08 daily. 11 03/22/20 18 Active ALCOHOL PREP PADS pads, medicated Pt states 4 x daily 3 05/15/20 19 Active Freestyle lancets 28 gauge DIRECTED THREE TIMES A DAY USE DIRECTED 90 4 05/19/20 19 Active repaglinide (PRANDIN) 0.5 mg tablet Take by mouth 4 times a day. 2 with breakfast, 1 lunch, 1 dinner 06/07/20 20 Active Eliquis 5 mg tablet Take 5 mg by mouth every 12 hours. 03/21/20 21 Active cholecalciferol (VITAMIN D3) 1,250 mcg (50,000 unit) capsule Take 50,000 Units by mouth every 14 days. 11/10/2022 was last dose ( pt states taking every other week) 02/07/20 21 Active Trulicity 3 mg/0.5 mL injection dose Inject 3 mg under the skin once a week. Taken 08/29/20 21 Active tamoxifen (NOLVADEX) 20 mg tablet Take 20 mg by mouth once a day. In the morning. 08/18/20 21 Active levothyroxine (SYNTHROID, LEVOTHROID) 88 mcg tablet Take 88 mcg by mouth once a day. 09/06/20 21 Active insulin lispro protamin-lispro 100 unit/mL (75-25) insulin pen Inject under the skin 2 times a day with meals. 24 units in AM (~10 am), 22 units at night (~4 pm) 09/20/20 22 Active calcium carbonate (Tums Ultra) 470 mg calcium (1,177 mg) tablet,chewable Chew and swallow 2 tablets by mouth 3 times a day with meals. Active Children's Multivitamin Chew and swallow 2 tablets by mouth once a day. 09/12/20 22 Active FreeStyle Ev 2 [place] misc 07/13/20 22 Active calcium carbonate 400 mg calcium (1,000 mg) tablet,chewable Chew and swallow 1,000 mg by mouth. 05/17/20 Active OneTouch Verio Flex meter misc 01/25/20 Active omega-3 acid ethyl esters (LOVAZA) 1 gram capsule Take by mouth. Activ e metoprolol tartrate (LOPRESSOR) 25 mg tablet Take 25 mg by mouth. 05/17/20 Active FreeStyle Ev 2 Sensor kit 11/07/20 Active acetaminophen (TYLENOL) 325 mg tablet Take 2 tablets (650 mg total) by mouth every 6 hours as needed for pain. 12/09/19 Active Additional Information Patient not taking.Reported on 04/24/2023 Calcium Antacid 200 mg calcium (500 mg) chewable tablet 12/21/19 Active ergocalciferol (VITAMIN D2) 1,250 mcg (50,000 unit) capsule 12/21/19 Active metFORMIN (GLUCOPHAGE) 500 mg tablet Take 500 mg by mouth. 11/02/20 Active aspirin chewable tablet 81 mg Chew and swallow 81 mg by mouth. Active furosemide (Lasix) 20 mg tablet Take 20 mg by mouth. 08/16/20 Active lisinopriL (ZestriL) 5 mg tablet Take 5 mg by mouth. 08/16/20 Active mycophenolate mofetil (CELLCEPT) 250 mg capsuleIndicati ons:Liver replaced by transplant (HCC) TAKE (1) CAPSULE BY MOUTH TWICE DAILY 60 capsule 01/09/20 25 Active tacrolimus (PROGRAF) 0.5 mg capsuleIndicati ons:Liver replaced by transplant (HCC) TAKE (1) CAPSULE BY MOUTH TWICE DAILY. 56 capsule 01/09/20 25 Active omega 9-ikv-sie-fish oil 300-1,000 mg capsule capsule @@ TAKE 1 CAPSULE BY MOUTH DAILY. 28 capsule 01/09/20 25 Active mycophenolate mofetil (CELLCEPT) 250 mg capsuleIndicati ons:Liver replaced by transplant (HCC) TAKE (1) CAPSULE BY MOUTH TWICE DAILY 60 capsule 12/12/19 25 025 Discontinued tacrolimus (PROGRAF) 0.5 mg capsuleIndicati ons:Liver replaced by transplant (HCC) TAKE (1) CAPSULE BY MOUTH TWICE DAILY. 56 capsule 12/12/19 25 025 Discontinued omega 8-cdo-uwn-fish oil 300-1,000 mg capsule capsule @@ TAKE 1 CAPSULE BY MOUTH DAILY. 28 capsule 12/12/19 25 025 Discontinued Active Problems Problem Noted Date Diagnosed Date Mobility impaired 12/29/2022 Impaired mobility 12/29/2022 Atrial fibrillation 12/27/2022 Assessment & Plan (12/28/2022 7:47 PM EST): Patient with a history of atrial fibrillation with RVR. Rate controlled on admission. Home medications: Diltiazem CD 180 mg daily, Lopressor 25 mg BID, Eliquis 5 mg BID. -diltiazem CD 120 mg daily -Lopressor 12.5 mg BID -Eliquis 5 mg BID Abnormal finding on urinalysis 12/27/2022 Assessment & Plan (12/28/2022 7:47 PM EST): UA with leukocyte esterase, WBCs, and few bacteria, urine and blood cultures pending. Patient afebrile, without leukocytosis or urinary complaints - though limited historian. Started on ciprofloxacin IV in the ED. -12/27 urine cultures NGTD -Trend fever curve -Daily CBC NSVT (nonsustained ventricular tachycardia) 11/26 Palpable purpura 12/06/2022 Rash 12/05/2022 Leukocytosis 12/05/2022 Wound infection 12/05/2022 SVT (supraventricular tachycardia) 12/04/2022 Rapid atrial fibrillation 12/04/2022 Postoperative hemorrhage of musculoskeletal structure following non-musculoskeletal procedure 12/03/2022 Overview (12/03/2022): Patient experienced supra-fascial postoperative hemorrhage immediately following ventral hernia repair with emergent re-exploration, evacuation of hematoma, and surgical control of bleeding. Assessment & Plan (12/03/2022 3:01 PM EST): Stable without evidence of bleeding: -Diuretic therapy to optimize volume status. -Metoprolol 12.5 mg by mouth twice daily for paroxysmal supraventricular tachycardia. -Broad spectrum Abx coverage with piperacillin/tazobactam given left posterior lung field consolidation demonstrated on CT chest, negative for PE. -Chest PT to left chest, incentive spirometry and deep breathing exercises. -Obtain nasal swab MRSA PCR. -ICU glycemic protocol. -Advance diet as tolerated. -Out of bed ambulate. -Start therapeutic anticoagulation. -May transfer to floor when bed available. Ventral hernia without obstruction or gangrene 0 11/29/2022 Immunosuppression 11/04/2015 Assessment & Plan (12/02/2022 6:17 PM EST): Continue sublingual tacrolimus therapy, re-evaluate dosing in collaboration with transplant surgery given subtherapeutic level. -Daily Tacrolimus level. 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 Home meds: tacrolimus 0.5 mg daily and cellcept 250 mg BID. LFTs within normal limits on admission. -Daily tacro levels -Continue home tacrolimus 0.5 mg daily -Hold home cellcept in the setting of acute renal failure Primary hyperparathyroidism 02/24/2014 Vitamin D deficiency 01/31/2014 Gout 07/20/2011 Assessment & Plan (12/27/2022 2:19 AM EST): -Hold home allopurinol in the setting of ARF Hyperlipidemia 06/16/2010 Assessment & Plan (12/27/2022 2:19 AM EST): -Continue home atorvastatin 20 mg Osteopenia of both hips 06/29/2009 Diabetes mellitus 04/05/2009 Assessment & Plan (12/27/2022 3:12 AM EST): Patient with a history of T2DM. Home medications: Prandin 0.5 mg 2 with breakfast, 1 with lunch, and 1 with dinner, and insulin lispro protamin-lispro (75-25) 24 units in the AM and 22 units nightly. -Hold home medications -15 units lantus nightly - consider up titration in the AM -MDISS with meals and nightly -Carbohydrate consistent diet -POCT glucose checks Cerebral palsy 04/05/2009 Assessment & Plan (12/27/2022 2:19 AM EST): Patient with a history of cerebral palsy. Limited capacity/historian as such. Patient's HCP Chuck David (brother) activated as HCA. Patient appears at baseline mental status on evaluation. Hypertension 04/05/2009 Assessment & Plan (12/28/2022 7:46 PM EST): Patient with a history of hypertension. Normotensive on evaluation. Home meds: Clonidine 0.2 mg daily, lisinopril 5 mg daily, lasix 20 mg daily. 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 Cr 3.52 on admission (baseline appears closer to 1.0-1.2). FENa 1.7% intrinsic likely ATN in the setting of recent adverse reaction to Zosyn. Patient s/p 1 L NS in the ED. Patient's creatinine drastically improving with fluids, likely MARIA ESTHER was hypovolemia and hypotension mediated. -Renal ultrasound normal -Renal consulted, appreciate recs -Daily BMP -Avoid nephrotoxic agents -Renally dose medications -Strict I/Os Acute respiratory failure wi th hypoxia and hypercapnia 11/30/2022 12/03/2022 Overview (11/30/2022): Planned postoperative ventilation following urgent reexploration of abdominal incision for hemorrhagic shock secondary to subcutaneous surgical bleed following ventral hernia repair. Assessment & Plan (12/02/2022 6:16 PM EST): Ventilatory support via High Flow Nasal Cannula for hypoxemic respiratory insufficiency: -Diuretic therapy to optimize volume status. -Broad spectrum Abx coverage with piperacillin/tazobactam given left posterior lung field consolidation demonstrated on CT chest, negative for PE. -Chest PT to left chest, incentive spirometry and deep breathing exercises. -Obtain nasal swab MRSA PCR. -ICU glycemic protocol. -MANAGER CHANGE evaluation, if ok to take po diet as tolerated, mobilize OOB to chair once O2 requirements decreased. -Start therapeutic anticoagulation. -D/C Jones. -Keep in ICU until hypoxemia is resolved. Hemorrhagic shock 11/29/2022 12/02/2022 Assessment & Plan (11/30/2022 5:38 PM EST): Serial labs, complete volume resuscitation. -Electrolyte repletion as indicated. -Keep Jones catheter for now, keep arterial catheter until complete hemodynamic stability established. -Keep in ICU for close observation. Cirrhosis 04/05/2009 10/02/2017 Overview (08/18/2017): Idiopathic Immunizations Immunization Administration Dates Next Due Covid-19, Pfizer, mRNA, Sebastian valent, PF 30 mcg/0.3 mL dose (for ages 12 and older) 02/22/2021 Diphtheria and Tetanus Toxoi ds, Adsorbed for Pediatric Use 03/24/2019 INFLUENZA, SPLIT VIRUS, TRIVALENT, PF ,10/30/2017,10/12/2016,09/20,09/21/2006,09/26/2004 Influenza, High Dose Seasona l, Preservative Free 09/02/2019 Influenza, Injectable, Quadr ivalent Preservative Free 09/02/2020 Influenza, Trivalent, MDV, Injectable 09/15/2010 Pneumococcal Conjugate Vacci ne, 13 Valent 02/14/2016 Pneumococcal Polysaccharide Vaccine, 23 Valent 11/25/2019,09/20/2007 Tetanus Toxoid, Reduced Diph theria Toxoid, and Acellular Pertussis Vaccine, Adsorbed 03/24/2019 Social History Tobacco Use Types Packs/Day Years Used Date Smoking Tobacco: Never Smokeless Tobacco: Never Tobacco Cessation:Counseling Given: Not Answered Alcohol Use Standard Drinks/Week Comments No 0 (1 standard drink = 0.6 oz pur e alcohol) Never Comments No Sex and Gender Information Value Date Recorded Sex Assigned at Female 03/06/2024 2:43 PM EDT Legal Sex Female 3:29 AM EDT Gender Identity Not on file Sexual Orientation Not on file 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 on file Not on fi le Not on file Last Filed Vital Signs Vital Sign Reading Time Taken Comments Blood Pressure 143/82 03/06/2024 2:50 PM EDT Pulse 96 03/06/2024 2:50 PM EDT Temperature 36.2 ??C (97.1 ??F) 03/06/2024 2:50 PM ED T Respiratory Rate 18 03/06/2024 2:50 PM EDT Oxygen Saturation 94% 03/06/2024 2:50 PM EDT Inhaled Oxygen Concentration - - Weight 77.7 kg (171 lb 4.8 oz) 03/06/2024 2:50 P M EDT Height 150 cm (4' 11.06 ) 12/05/2022 10:00 AM ES T Body Mass Index 34.53 12/05/2022 10:00 AM EST Plan of Treatment Upcoming Encounters Date Type Department Care Team (Late st Contact Info) Description 03/03/2025 11:00 AM EDT Follow-Up [facility] Liver Transplant Services [address] [place] [id number] Eveline Calderon MD [address] [place] [address] Medical Devices Implanted Type Area Ctrs Device Identifier Shelf Expiration Date Model / Serial / Lot Mesh Ventral Hernia Soft Square [id number] - [id number] Implanted:Qty: 1 on 11/29/2022 by Pita Clark MD MPH at [facility] Mesh N/A: Abdomen [employer] 05/23/2027 [id number] / / [id number] Description:Verified by RK, ROBBY and ANASTASIYA. Procedures * Due to [place] state law, this organization might not be sharing negative HIV tests. Procedure Name Priority Date/Time Associated Diagnosis Comments CBC AUTO DIFFERENTIAL Routine 03/06/2024 3:44 PM EDT Liver replaced by transplant (HCC) Immunosuppressed status (HCC) COMPREHENSIVE METABOLIC PANEL Routine 03/06/2024 3:44 PM EDT Liver replaced by transplant (HCC) Immunosuppressed status (HCC) PHOSPHORUS Routine 12/29/2022 5:16 AM EST HEMOGLOBIN A1C Routine 05/10/2017 4:19 PM EDT VITAMIN D, 25-HYDROXY, TOTAL, IMMUNOASSAY Routine 07/04/2012 11:33 AM EDT PTH, INTACT (WITHOUT CALCIUM) Routine 07/04/2012 11:33 AM EDT from Last 3 Months or Most Recently Relevant to Health Maintenance Results * Due to [place] state law, this organization might not be sharing negative HIV tests. * (ABNORMAL) CBC Auto Differential (03/06/2024 3:44 PM EDT) WBC 11.7(H) 3.8 - 10.8 10*3/uL 03/06/2024 5:32 PM EDT [facility] RBC 4.26 3.80 - 5.10 10*6/uL 03/06/2024 5:32 PM EDT [facility] Hemoglobin 12.9 11.7 - 15.5 g/dL 03/06/2024 5:32 PM EDT [facility] Hematocrit 38.9 35.0 - 45.0 % 03/06/2024 5:32 PM EDT [facility] MCV 91.3 80.0 - 100.0 fL 03/06/2024 5:32 PM EDT [facility] MCH 30.3 27.0 - 33.0 pg 03/06/2024 5:32 PM EDT [facility] MCHC 33.2 32.0 - 36.0 g/dL 03/06/2024 5:32 PM EDT [facility] RDW 15.6(H) 11.0 - 15.0 % 03/06/2024 5:32 PM EDT [facility] Platelets 389 140 - 400 10*3/uL 03/06/2024 5:32 PM EDT [facility] MPV 10.2 7.5 - 12.5 fL 03/06/2024 5:32 PM EDT [facility] nRBC % 0.3 /100 WBCs 03/06/2024 5:32 PM EDT [facility] nRBC # 0.04(H) <0.01 10*3/uL 03/06/2024 5:32 PM EDT [facility] Blood Structure of peripheral vein / Unknown Venipuncture / Unknown 03/06/2024 3:44 PM EDT 03/06/2024 3:57 PM EDT us Eveline Calderon MD LAB BLOOD ORDERABLES Final Resul t [facility] [address] [place] [address], * (ABNORMAL) Comprehensive Metabolic Panel (03/06/2024 3:44 PM EDT) NA 139 135 - 145 mmol/L 03/06/2024 4:39 PM EDT [facility] K 4.1 3.5 - 5.3 mmol/L 03/06/2024 4:39 PM EDT [facility] Cl 104 97 - 110 mmol/L 03/06/2024 4:39 PM EDT [facility] CO2 25 24 - 32 mmol/L 03/06/2024 4:39 PM EDT [facility] Anion Gap 10 5 - 15 03/06/2024 4:39 PM EDT [facility] Glucose 184(H) 70 - 99 mg/dL 03/06/2024 4:39 PM EDT [facility] Creatinine 1.47(H) 0.50 - 1.20 mg/dL 03/06/2024 4:39 PM EDT [facility] Calcium 8.8 8.7 - 10.7 mg/dL 03/06/2024 4:39 PM EDT [facility] Total Protein 6.4 6.0 - 8.0 g/dL 03/06/2024 4:39 PM EDT [facility] Albumin 3.3(L) 3.5 - 4.8 g/dL 03/06/2024 4:39 PM EDT [facility] Bilirubin, Total 0.4 0.3 - 1.2 mg/dL 03/06/2024 4:39 PM EDT [facility] Alkaline Phosphatase 56 30 - 115 U/L 03/06/2024 4:39 PM EDT [facility] AST 17 10 - 40 U/L 03/06/2024 4:39 PM EDT [facility] ALT 13 10 - 40 U/L 03/06/2024 4:39 PM EDT [facility] BUN 31(H) 7 - 23 mg/dL 03/06/2024 4:39 PM EDT [facility] eGFR 38(L) >=60 mL/min/1 .73m2 03/06/2024 4:39 PM EDT [facility] Comment:The estimated glomer ular filtration rate (eGFR) is calculated using a new formula developed by the NKF-ASN task force to eliminate race-based correction factors. The new formula uses serum/plasma creatinine, age, and gender to determine eGFR. A value below 60mls/min might indicate kidney disease and will be flagged. For additional information, see Vicente roque al, Am J Kidney Dis. 2021;79(2):268- 288, A Unifying Approach for GFR estimation: Recommendations of the NKF-ASN Task Force on Reassessing the Inclusion of Race in Diagnosing Kidney Disease . Blood Structure of peripheral vein / Unknown Venipuncture / Unknown 03/06/2024 3:44 PM EDT 03/06/2024 3:57 PM EDT Eveline Calderon MD LAB BLOOD ORDERABLES Final Resul t Performing Organization Address City/[facility]/ZIP Co de Phone Number [facility] [address] [place] [address], [place] * (ABNORMAL) Phosphorus (12/29/2022 5:16 AM EST) Phosphorus 2.2(L) 2.5 - 4.5 mg/dL 12/29/2022 6:12 AM EST [facility] Blood Structure of peripheral vein / Unknown Venipuncture / Unknown 12/29/2022 5:16 AM EST 12/29/2022 5:38 AM EST Maycol Flores MD LAB BLOOD ORDERABLES Final Resu lt Performing Organization Address [facility] Co de Phone Number [facility] [address] [place] [address], [place] * (ABNORMAL) Hemoglobin A1c (05/10/2017 4:19 PM EDT) Hemoglobin A1C 6.8(H) <5.7 [facility] Comment: UNITS OF MEASURE: % of total Hgb For someone without known diabetes, a hemoglobin A1c value of 6.5% or greater indicates that they may have diabetes and this should be confirmed with a follow-up test. For someone with known diabetes, a value <7% indicates that their diabetes is well controlled and a value greater than or equal to 7% indicates suboptimal control. A1c targets should be individualized based on duration of diabetes, age, comorbid conditions, and other considerations. Currently, no consensus exists regarding use of hemoglobin A1c for diagnosis of diabetes for children. eAG (MG/DL) 148 () (calc) [facility] eAG (MMOL/L) 8.2 () (calc) [facility] 05/10/2017 4:19 PM EDT 05/10/2017 5:43 PM EDT Eveline Calderon MD LAB BLOOD ORDERABLES Final Resul t [facility] [address] [place] [address] [address] Floor, [place] [address], [place] [phone] * Vitamin D, 25-Hydroxy, Total, Immunoassay (07/04/2012 11:33 AM EDT) Vitamin D 25 Oh 41 30 - 100 ng/mL [facility] Comment: Vitamin D Status 25-OH Vitamin D Deficiency: <10 ng/mL Insufficiency: 10-30 ng/mL Sufficiency: 30-100 ng/mL Toxicity: >100 ng/mL 07/04/2012 11:3 3 AM EDT 07/04/2012 12:01 PM EDT Ricardo Mejia MD LAB BLOOD ORDERABLES Final Resul t Performing Organization Address City[facility]/ZIP Co de Phone Number [facility] [address] [place] [address], * PTH, Intact (without Calcium) (07/04/2012 11:33 AM EDT) Parathyroid Intact 60 12 - 65 pg/mL [facility] 07/04/2012 11:3 3 AM EDT 07/04/2012 12:01 PM EDT Ricardo Mejia MD LAB BLOOD ORDERABLES Final Resul t Performing Organization Address [facility] Co de Phone Number [facility] [address] [place] [address], from Last 3 Months or Most Recently Relevant to Health Maintenance Additional Health Concerns Infection Onset Date 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 12/26/2022 Insurance [facility] Advance Directives Documents on File Type Date Recorded 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 Health Care 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 12/01/2022 7:08 AM 2020 Health Care Proxy 01/05/2021 1:34 PM 03-11 * Full Code (Latest Code Status on File) Date Activated Date Inactivated Comments 12/27/2022 1:54 AM 12/29/2022 6:01 PM * Full Code Date Activated Date Inactivated Comments 12/07/2022 3:13 PM 12/09/2022 7:01 PM * Full Code Date Activated Date Inactivated Comments 11/29/2022 12:51 PM 12/07/2022 3:13 PM * Full Code Date Activated Date Inactivated Comments 11/29/2022 6:01 AM 11/29/2022 12:51 PM Healthcare Agents on File Name Relationship Healthcare Agent Relationshi p Communication Chuck David Brother Health Care Agent Mathew David [facility] Health Care Agent Care Teams Collaborative Teacher Relationship Specialty Start Date End Date Mallorie Draper [address] [place] [address] PCP - General Internal Medicine 01/21/24
--- OUTSIDE RECORDS SUMMARY | 2025-01-15 15:17 | XMS_ITS | Clinical Summary ---
Author Organization Unknown Care Team Providers Care Manager Beverage Name Role Phone DEANNA PENA, MARTHA Unavailable Unavailable CHADWICK MAGAÑA, FABIÁN Unavailable Unavailable Payers Payer Name Policy Type Policy Number Effective Date Expira tion Date 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 Ordering Clinician Indication Dosage Frequency Signature (SIG) Comments Components insulin lispro protamine-l ispro 100 unit/mL (75-25) subcutaneou s pen 05-07 00:00: 00 05-28 23:59 :00 No [id number] Per instruc tions 2 TIMES DAILY Per instructio ns 2 TIMES DAILY (route: subcutaneo us) Med Classific ation: Endocrine Lantus Solostar U-100 Insulin 100 unit/mL (3 mL) subcutaneou s pen 05-07 00:00: 05-21 00:00 :00 No [id number] Per instruc tions Per instructio ns (route: subcutaneo us) Med Classific ation: Endocrine repaglinide 1 mg tablet 05-07 00:00: 00 Yes [id number] 1 mg 3 TIMES DAILY 1 mg 3 TIMES DAILY (route: oral) Med Classific ation: Endocrine allopurinol 300 mg tablet 04-22 00:00: 00 Yes [id number] 300 mg DAILY 300 mg DAILY (route: oral) Med Classific ation: Gout and Hyperuric emia Therapy anastrozole 1 mg tablet 04-22 00:00: 00 Yes [id number] 1 mg DAILY 1 mg DAVID Y (route: oral) Med Classific ation: Antineopl astics atorvastati n 40 mg tablet 04-22 00:00: 00 Yes [id number] 40 mg DAILY 40 mg DAILY (route: oral) Med Classific ation: Cardiovas cular Therapy Agents Calcium Antacid 200 mg (as calcium carbonate 500 mg) chewable tablet 04-22 00:00: 00 Yes [id number] 2 tablet DAILY 2 tablet DAILY (route: oral) Med Classific ation: Gastroint estinal Therapy Agents diltiazem CD 180 mg capsule,ext ended release 24 hr 04-22 00:00: 00 Yes [id number] 180 mg DAILY 180 mg DAILY (route: oral) Med Classific ation: Cardiovas cular Therapy Agents Eliquis 5 mg tablet 04-22 00:00: 00 Yes [id number] 5 mg 2 TIMES DAILY 5 mg 2 TIMES DAILY (route: oral) Med Classific ation: Hematolog ical Agents levothyroxi ne 88 mcg tablet 04-22 00:00: 00 Yes [id number] 88 mcg DAILY 88 mcg DAILY (route: oral) Med Classific ation: Endocrine metoprolol tartrate 25 mg tablet 04-22 00:00: 00 Yes [id number] 25 mg DAILY 25 mg DAILY (route: oral) Med Classific ation: Cardiovas cular Therapy Agents mycophenola te mofetil 250 mg capsule 04-22 00:00: 00 Yes [id number] 250 mg 2 TIMES DAILY 250 mg 2 TIMES DAILY (route: oral) Med Classific ation: Immunosup pressive Agents tacrolimus 0.5 mg capsule, immediate-r elease 04-22 00:00: 00 Yes [id number] 0.5 mg 2 TIMES DAILY 0.5 mg 2 TIMES DAILY (route: oral) Med Classific ation: Immunosup pressive Agents ergocalcife rol (vitamin D2) 1,250 mcg (50,000 unit) capsule 04-22 00:00: 00 05-21 00:00 :00 No [id number] Per instruc tions Per instructio ns (route: oral) Med Classific ation: Electroly te Balance-N utritiona l Products repaglinide 0.5 mg tablet 05-21 00:00: 00 Yes [id number] 0.5 mg 2 TIMES DAILY 0.5 mg 2 TIMES DAILY (route: oral) Med Classific ation: Endocrine Trulicity 3 mg/0.5 mL subcutaneou s pen injector 05-21 00:00: 00 05-28 23:59 :00 No [id number] 3 mg WEEKLY 3 mg WEEKLY (route: subcutaneo us) Med Classific ation: Endocrine Vitamin D3 25 mcg (1,000 unit) capsule 05-21 00:00: 00 Yes [id number] 25 mcg DAILY 25 mcg DAILY (route: oral) Med Classific ation: Electroly te Balance-N utritiona l Products Lantus Solostar U-100 Insulin 100 unit/mL (3 mL) subcutaneou s pen 05-29 00:00: 00 01-14 23:59 :00 No [id number] 34 unit DAILY 34 unit DAILY (route: subcutaneo us) Med Classific ation: Endocrine Trulicity 4.5 mg/0.5 mL subcutaneou s pen injector 05-29 00:00: 00 Yes [id number] 4.5 mg WEEKLY 4.5 mg WEEKLY (route: subcutaneo us) Med Classific ation: Endocrine Lantus Solostar U-100 Insulin 100 unit/mL (3 mL) subcutaneou s pen 01-14 00:00: 00 Yes [id number] 37 unit DAILY 37 unit DAILY (route: subcutaneo us) Med Classific ation: Endocrine Vital Signs Vital Name Observation Time Observation Value Commen ts Temperature 2024-12-14 12:36:00.000 98.5 [degF] Pulse 2024-12-14 12:36:00.000 83 /min Respirations 2024-12-14 12:36:00.000 16 /min Systolic Blood Pressure 2024-12-14 12:36:00.000 152 mm [Hg] Diastolic Blood Pressure 2024-12-14 12:36:00.000 90 mm [Hg] Plan of Treatment Planned Activity Planned Date Details Comments Future Scheduled Test SKILLED NU RSE TO EVALUATE PATIENT, IDENTIFY PRIMARY AND CO-MORBID CONDITIONS CODED PER CODING GUIDELINES, AND DEVELOP PATIENT SPECIFIC PLAN OF CARE THAT INCLUDES PATIENT GOAL FOR HOME HEALTH. [code = SKILLED NURSE TO EVALUATE PATIENT, IDENTIFY PRIMARY AND CO-MORBID CONDITIONS CODED PER CODING GUIDELINES, AND DEVELOP PATIENT SPECIFIC PLAN OF CARE THAT INCLUDES PATIENT GOAL FOR HOME HEALTH.] Future Scheduled Test SKILLED NU RSE TO O/A OF PATIENTS MENTAL/BEHAVIORAL STATUS, ASSESS VITAL SIGNS (FREQUENCY OF VS), ALLOW 2 PRNS FOR MEDICATION MANAGEMENT. [code = SKILLED NURSE TO O/A OF PATIENTS MENTAL/BEHAVIORAL STATUS, ASSESS VITAL SIGNS (FREQUENCY OF VS), ALLOW 2 PRNS FOR MEDICATION MANAGEMENT.] Future Scheduled Test SKILLED NU RSE WILL MAINTAIN SITUATIONAL AWARENESS FOR SAFETY AND WILL NOTIFY CLINICAL AIR GRINDER AND PHYSICIAN/PROVIDER WITH ANY CHANGE IN CONDITION. [code = SKILLED NURSE WILL MAINTAIN SITUATIONAL AWARENESS FOR SAFETY AND WILL NOTIFY CLINICAL AIR GRINDER AND PHYSICIAN/PROVIDER WITH ANY CHANGE IN CONDITION.] Future Scheduled Test SKILLED NU RSE FOR MEDICATION ADMINISTRATION PER MEDICATION LIST TO BE PERFORMED DAILY (FREQUENCY). [code = SKILLED NURSE FOR MEDICATION ADMINISTRATION PER MEDICATION LIST TO BE PERFORMED DAILY (FREQUENCY).] Future Scheduled Test SKILLED NU RSE TO ASSESS PATIENTS PSYCHOSOCIAL STATUS TO IDENTIFY POTENTIAL ISSUES THAT MAY COMPLICATE THE PROVISION OF THE PLAN OF CARE INCLUDING THE PATIENTS ABILITY TO ACCESS COMMUNITY RESOURCES AND PSYCHOSOCIAL SUPPORT SERVICES. [code = SKILLED NURSE TO ASSESS PATIENTS PSYCHOSOCIAL STATUS TO IDENTIFY POTENTIAL ISSUES THAT MAY COMPLICATE THE PROVISION OF THE PLAN OF CARE INCLUDING THE PATIENTS ABILITY TO ACCESS COMMUNITY RESOURCES AND PSYCHOSOCIAL SUPPORT SERVICES.] Goal Patient Goal - TO MANAGE INS ULIN Goal 2024-07-16 Patient Goal - TO MANAGE INS ULIN Goal 2024-09-15 Patient Goal - TO MANAGE INS ULIN Goal 2024-11-12 Patient Goal - TO MANAGE INS ULIN Goal 2025-01-13 Patient Goal - TO MANAGE INS ULIN Goal Provider Goal - A PLAN OF CARE WILL BE ESTABLISHED THAT MEETS PATIENT'S ALF NEEDS AND INCLUDES PATIENT GOAL FOR HOME HEALTH. Goal Provider Goal - ALTERED MENTAL/BEHAVIORAL STATUS WILL BE IDENTIFIED PROMPTLY AND INTERVENTION INITIATED QUICKLY TO MINIMIZE ASSOCIATED RISKS THROUGHOUT CERTIFICATION PERIOD. Goal Provider Goal - PATIENT WILL REMAIN SAFE IN THE COMMUNITY AND WILL BE FREE OF DANGER TO SELF AND OTHERS THROUGHOUT THE CERTIFICATION PERIOD. Goal Provider Goal - PATIENT WILL COMPLY WITH MEDICATION WHEN NURSE ADMINISTERS THROUGHOUT CERTIFICATION PERIOD. Goal Provider Goal - PSYCHOSOCIAL NEEDS WILL BE IDENTIFIED AND PLAN IMPLEMENTED TO MINIMIZE RISK THROUGHOUT CERTIFICATION PERIOD. Progress Notes Progress Notes <paragraph>[Visit Date: 2024 by FABIÁN GENAO RN]:</paragraph><paragraph>PT EDUCATED ON NEW INSULIN DOSAGE OF 37 UNITS LANTUS. [id number]</paragraph> <paragraph>[Visit Date: 2024 by FABIÁN GENAO RN]:</paragraph><paragraph>NEW ORDER RECD FOR CHANGE IN LANTUS INSULIN TO 37 UNITS DAILY IN AM. PT EDUCATED ON CHANGE IN DOSE. PT REQUIRES REPEAT EDUCATION DUE TO COGNITIVE DEFICITS.</paragraph> <paragraph>[Visit Date: 2024 by FABIÁN GENAO RN]:</paragraph><paragraph>THIS IS A 69 YEAR OLD FEMALE WITH PRIMARY DX OF TYPE 2 DIABETES, PMH INCLUDES GANGRENE, LIVER TRANSPLANT. BILAT MASTECTOMY, CEREBRAL PALSY. PATIENT PRESENTS ALERT AND ORIENTEDX3, THINKING IS CONCRETE AND BEHAVIOR CHILD LIKE AT TIMES. PATIENT IS HOMEBOUND DUE TO POOR SAFETY AWARENESS FROM COGNITIVE DEFICITS PATIENT LIVES IN AN ASSISTED LIVING FACILITY WITH A ROOMMATE. PATIENT DOES HAVE SUPPORTIVE FAMILY WHO LIVE NEARBY AND [facility] STAFF A CAREGIVER AVAILABLE. PATIENT DOES NOT UTILIZE DME. PATIENT RESOURCES INCLUDE REGULAR COMPANIONS FROM THE [employer] PATIENT REQUIRES ALF VISITS DAILY FOR FOR INSULIN ADMINISTRATION, MEDICATION EDUCATION.</paragraph> <paragraph>[Visit Date: 2024 by FABIÁN GENAO RN]:</paragraph><paragraph>FBS 234. LANTUS INSULIN 34 UNITS ADMINISTERED</paragraph> <paragraph>[Visit Date: 2024 by FABIÁN GENAO RN]:</paragraph><paragraph>PT STATES SHE ADMINISTERED LANTUS INSULIN PRIOR TO NURSE ARRIVAL. DENIES SIGNS OR SYMPTOMS OF HYPER OR HYPOGLYCEMIA.</paragraph> <paragraph>[Visit Date: 2024 by FABIÁN GENAO RN]:</paragraph><paragraph>PT DENIES SIGNS OR SYMPTOMS OF HYPER OR HYPOGLYCEMIA NOTED. LANTUS INSULIN 34 UNITS ADMINISTERED. PT UNRELIABLE TO SELF ADMINISTER DAILY DUE TO COGNITIVE DEFICITS</paragraph> Encounters Start Date/Time End Date/Time Encounter Type Admission Type Attending [facility] Facility Care Department Encounter ID Discharge Date Discharge Status Discharge Condition Discharge Reason Percent Goals Met 2024-05-21 00:00:00 2025-01-15 00:00:00 Outpatient RECERTIFIC FABIÁN AGRAWAL [facility] [id number]
--- OUTSIDE RECORDS SUMMARY | 2025-01-15 15:17 | XMS_ITS | Patient Health Record ---
Author Organization [facility] Address [address] [place] [address] Care Team Providers Care Back Line Cook Name Role Phone Nahum Fernandez MD Primary Care Provider Dex Live Unavailable [phone] REASON FOR REFERRAL No Information MEDICATIONS Medication SIG (Take, Route, Frequency, Duration) Notes Start Date End Date Status Vitamin D (Ergocalciferol) 82595 UNIT TAKE 1 CAPSULE EVERY 2 WEEKS. Oral for 28 Active FreeStyle Lite Test TEST BLOOD SUGAR TWI CE A DAY IN VITRO DX E11.9 1 In Vitro for 90 Active Levothyroxine Sodium 100 MCG TAKE 1 TABLET DAILY DIRECTED. Oral for 90 Active Accu-Chek Softclix Lancets TEST BLOOD MICHAEL GAR TWICE A DAY (DX- E11.65) for 50 Active Mycophenolate Mofetil 250 MG TAKE 1 CAPSULE TWICE DAILY. Oral for 30 Active [facility] Alcohol Swabs SWAB THE INJECTION S ITE TWICE A DAY for 90 Active BD Insulin Syringe MicroFine 28G X 1/2 USE TO INJECT INSULIN DAILY for 90 Active cloNIDine HCl 0.3 MG TAKE 1 TABLET BY [facility] EVERY DAY Oral for 90 Active Flintstones Complete 250 2 tablets Orall y Once a day Active dilTIAZem HCl ER Coated Beads 180 MG TAKE 1 CAPSULE EVERY MORNING ON AN EMPTY STOMACH ONCE A DAY ORALLY 90 DAYS Oral for 90 Active Tums Ultra 1000 1000 MG 1 tablet Orally Three times a day Active NovoLIN N 100 UNIT/ML INJECT 40 UNITS DA FELICITY SUBCUTANEOUS 30 DAYS Subcutaneous for 50 Active Amoxicillin 500 MG 4 capsules Orally 1 hr before dental procedure Active Allopurinol 300 MG TAKE 1 TABLET ONCE A DAY ORALLY 90 DAYS Oral for 90 Active Aspirin Adult Low Dose 81 MG 1 tablet Orally Once a day Active metFORMIN HCl 500 MG TAKE 1 TABLET BY [facility] TWICE A DAY WITH MEALS Oral for 90 Active Tacrolimus 0.5 MG TAKE 1 CAPSULE TWICE DAILY Oral for 30 Active Furosemide 40 MG TAKE 2 TABLETS ONCE A DAY ORALLY 90 Oral for 90 Active NovoLIN R 100 UNIT/ML INJECT SUBCUTANEOU S DAILY (30 DAYS Injection for 30 Active Atorvastatin Calcium 20 MG TAKE 1 TABLET BY MOUTH ONCE A DAY Oral for 90 Active Fish Oil 1000 MG 1 capsule Orally Onc e a day Active IMMUNIZATIONS Vaccine Route Administration Date Status Comme nts Influenza Unknown 09/16/2015 Administered Pneumococcal Unknown 02/14/2016 Administered Pneumococcal Unknown 08/20/2014 Administered SOCIAL HISTORY Sex Assigned At : Social History Observation Description Sex Assigned At Unknown PROBLEMS Problem Type ICD Code Onset Dates Problem Status W/U Status Risk SNOMED Code Notes Problem Encounter for screening for malignant neoplasm of colon (Z12.11) Active confirmed 297264369 Problem Encounter for screening for malignant neoplasm of rectum (Z12.12) Active confirmed Screening for malignant neoplasm of rectum (133195444) Problem Long-term use of aspirin therapy (Z79.82) Active confirmed 968600192 Problem Hx of cirrhosis (Z87.19) Active confirmed [id number] PLAN OF TREATMENT Future Test Test Name Order Date COLONOSCOPY 06/13/2016 Insurance Providers Payer Name Payer Address Payer Phone Subscriber Number Group Number Insured Name Patient Relationship to Insured Coverage Start Date Coverage End Date MEDICARE OF [place] [address] [place] [address] [id number] GILLES CHONG Self - patient is the insured MEDICAID OF [facility] [address] [place] [address] [id number] GILLES CHONG Self - patient is the insured MEDICAL (GENERAL) HISTORY Medical History History ICD Code Screening colonoscopy in 03/05/2006-nega tive Cryptogenic cirrhosis with liver transpl ant in 08/26 IDDM Mental retardation Hypothyroidsm Hypertension Gout Basal cell ca on nose Denies VA,CVA,Lung disease,renal disease Hyperlipidemia Edema Surgical History Surgery Date(Month/Year) Liver transplant at [facility] 08/2001 Basal cell ca on nose
--- OUTSIDE RECORDS SUMMARY | 2025-01-15 15:17 | XMS_ITS | Encounter Summary ---
Author Organization [facility] Address [address] [place] [address] Care Team Providers Care Human Resources Analyst Name Role Phone Mallorie Draper Primary Care Provider [phone] Reason for Visit * Reason Comments Med Refill Encounter Details Date Type Department Care Team (Late st Contact Info) Description 01/08/2025 Refill [facility] [address] [place] [address] Eveline Calderon MD [address] [place] [id number] Liver replaced by transplant (HCC) Social History Tobacco Use Types Packs/Day Years Used Date Smoking Tobacco: Never Smokeless Tobacco: Never Alcohol Use Standard Drinks/Week Comments No 0 [...] Not on fi le Not on file documented as of this encounter Plan of Treatment Upcoming Encounters Date Type Department Care Team (Late st Contact Info) Description 03/03/2025 11:00 AM EDT Follow-Up [facility] [address] [place] [id number] Eveline Calderon MD [address] [place] [address] documented as of this encounter Visit Diagnoses Diagnosis Liver replaced by transplant (HCC) Liver replaced by transplant documented in this encounter Additional Health Concerns Infection Onset Date Last Indicated Resolved Time 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
--- OUTSIDE RECORDS SUMMARY | 2025-01-15 15:17 | XMS_ITS ---
Author Organization [facility] Address [address] [place] [address] Care Team Providers Care Stockroom Keeper Name Role Phone SukhwinderMallorie shelton Stephie Primary Care Provider [phone] Transplant Episode Liver Recipient [facility] ([place], [place]) - [facility] Organ Received: Liver Transplanted on 09/07/2001 Marked as Active Follow-up on 09/07/2001 Liver CoordinatorMonique Capps RN Phone: N/A Fax: N/A Email: N/A [facility] Organ Diagnosis Organ Primary Contributory Liver Cirrhosis: Autoimmune Infection History Noted Survival Infection Treatment Organism Resolved 12/05/2022 21 years 2 months Wound infection Donor Information Organ ABO Source Meets Risk Criteria HLA Match Mismatches Cross Match Liver Transplanted A DBD A: B: DR: Liver Donor Serology Results Anti-CMV CMV IgG: Negative EBV IgG No results on file Anti-HBcAb HBC Total: Negative HBsAg HBsAg: Negative HBV DNA No results on file Anti-HCV HCV: Negative Anti-HIV I/II HIV-1: Negative Anti-HTLV I/II HTLV: Negative RPR/VDRL RPR: Negative EBV IgM No results on file HBsAb No results on file EBNA No results on file HBC Total HBC Total: Negative SARS CoV-2 No results on file Care Team Name Role Phone Fax Email Monique Capps RN Liver Coordinator N/A N/A N/A Dex Charlton Referring Physician [phone] N/A Eveline Calderon MD Activities Director Scouting [phone] [email or web address] Events Post-Transplant Pre-Transplant Admitted: 08/22/2001 Referred: 12/17/2000 Transplanted: 09/07/2001 Evaluation began: 1 Discharged: 12/20/2001 Committee: 07/02/2001 Center waitlisted: 1
--- OUTSIDE RECORDS SUMMARY | 2025-01-15 15:17 | XMS_ITS | Encounter Summary ---
Author Organization [facility] Address [address] [place] [address] Care Team Providers Care Rerolling Machine Operator Name Role Phone Mallorie Draper Primary Care Provider [phone] Encounter Details Date Type Department Care Team (Late st Contact Info) Description 08/29/2017 Transplant Conversio n Encounter [facility] Health Information Management [address] [place] [address] Provider, [facility] Social History Tobacco Use Types Packs/Day Years Used Date Smoking Tobacco: Never Comments:: Comments Unknown Sex and Gender Information Value Date Recorded Sex Assigned at Female 03/06/2024 2:43 PM EDT Legal Sex Female 3:29 AM EDT Gender Identity Not on file Sexual Orientation Not on file documented as of this encounter Plan of Treatment Upcoming Encounters Date Type Department Care Team (Late st Contact Info) Description 03/03/2025 11:00 AM EDT Follow-Up [facility]plant [facility] [address] [place] [address] Eveline Calderon MD [address] [place] [address] documented as of this encounter Visit Diagnoses Not on filedocumented in this encounter Additional Health Concerns Infection Onset Date Last Indicated Resolved Time COVID-19 - Confirmed infecti on Comment:[facility] 12/28/2020 12/28/2020 01/18/2021 3:47 PM EST R/O Respiratory Virus Infection 12/26/2022 3 12/26/2022 10:05 PM EST R/O Influenza 12/26/2022 12/26/2022 12/26/2022 10: 05 PM EST COVID-19 - Suspected infection 12/26/2022 12/26/2022 12/26/2022 10:05 PM EST 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
--- OUTSIDE RECORDS SUMMARY | 2025-01-15 15:17 | XMS_ITS | Clinical Summary ---
Author Organization [facility] Address [address] [place] [address] Phone Care Team Providers Care Extern Name Role Phone Os, Roxy JOSE Primary Care Provider Unavailab le Allergies Active Allergy Reactions Criticality Noted Date Comments Peanut (Diagnostic) Rash Low 01/30/2022 Peanut Butter Flavoring Agen t (Non-Screening) 09/06/2020 Medications allopurinol (ZYLOPRIM) 300 MG tablet Take 1 tablet by mouth 1 (one) time each day Active dilTIAZem (TIAZAC) 180 MG 24 hr capsule Take 1 capsule by mouth 1 (one) time each day Active Dulaglutide 3 MG/0.5ML solution pen-injector every 7 (seven) days Active Calcium Carbonate Antacid (Tums Chewy Delights) 1177 MG chewable tablet Chew 2 tablets 3 (three) times a day before meals Active mycophenolate (CELLCEPT) 250 MG capsule Take 1 capsule by mouth in the morning and 1 capsule in the evening. Active omega-3 (FISH OIL) 1000 MG capsule Take 1,000 mg by mouth 1 (one) time each day 1 Active Multiple Vitamin (multivitamin) capsule Take 2 capsules by mouth 1 (one) time each day 6 Active apixaban (ELIQUIS) 5 MG tablet Take 5 mg by mouth in the morning and 5 mg in the evening. 1 Active clotrimazole (LOTRIMIN) 1 % cream Apply topically 1 Active levothyroxine (SYNTHROID, LEVOTHROID) 88 MCG tablet Take 88 mcg by mouth 1 (one) time each day 1 Active metoprolol succinate XL (TOPROL XL) 25 MG 24 hr tablet Take 25 mg by mouth 1 (one) time each day 1 Active repaglinide (PRANDIN) 0.5 MG tablet Take 2 mg by mouth 1 (one) time each day 2 tabs am 1 tab pm 1 tab night 0 Active tacrolimus (PROGRAF) 0.5 MG capsule Take 0.5 mg by mouth in the morning and 0.5 mg in the evening. 1 Active tamoxifen (NOLVADEX) 10 MG chemo tablet Take 2 tablets by mouth 1 (one) time each day 1 Active amoxicillin (AMOXIL) 500 MG tablet Take 500 mg by mouth 2 Active atorvastatin (LIPITOR) 20 MG tablet Take 20 mg by mouth 2 Active ergocalciferol 1.25 MG (96138 UT) capsule Take 1 capsule by mouth every 14 (fourteen) days 2 Active metFORMIN (GLUCOPHAGE) 500 MG tablet Take 500 mg by mouth in the morning and 500 mg in the evening. Take with meals. Active aspirin 81 MG chewable tablet Chew 81 mg 1 (one) time each day Active Insulin Degludec (Tresiba) 100 UNIT/ML solution Inject 34 Units under the skin 1 (one) time each day in the morning Active magnesium oxide (MAG-OX) 400 MG tablet Take 1 tablet (400 mg total) by mouth in the morning and 1 tablet (400 mg total) in the evening. 60 tablet 11 4 07/17/20 25 Active Active Problems Problem Noted Date Diagnosed Date Obese class II 08/27/2023 08/27/2023 Impaired mobility 12/29/2022 08/27/2023 Abnormal urinalysis 12/27/2022 08/27/2023 Overview (08/27/2023): Last Assessment & Plan: UA with leukocyte esterase, WBCs, and few bacteria, urine and blood cultures pending. Patient afebrile, without leukocytosis or urinary complaints - though limited historian. Started on ciprofloxacin IV in the ED. 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 Rate controlled on admission. Home medications: Diltiazem CD 180 mg daily, Lopressor 25 mg BID, Eliquis 5 mg BID. -diltiazem CD 120 mg daily -Lopressor 12.5 mg BID -Eliquis 5 mg BID Disorder of musculoskeletal system 12/03/2022 08/27/2023 Overview (08/27/2023): Patient experienced supra-fascial postoperative hemorrhage immediately following ventral hernia repair with emergent re-exploration, evacuation of hematoma, and surgical control of bleeding. 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 Immunizations Name Administration Dates Next Due DT 03/24/2019 Influenza (IM) Preservative Free 018,10/30/2017,10/12/2016,09/20,09/21/2006,09/26/2004 Influenza Split High Dose Pr eservative Free IM 09/02/2019 Influenza Vaccine, Quadrival ent, Adjuvanted 09/02/2020 Influenza, Unspecified 09/15/2010 Pfizer SARS-COV-2 02/22/2021 Pneumococcal Conjugate 13-Valent 02/14/2016 Pneumococcal Polysaccharide 11/25/2019, 7 Tdap 03/24/2019 Family History Medical History Relation Comments Diabetes Father Cancer Mother pancreatic Diabetes Mother Relation Status Comments Father Mother Social History Tobacco Use Types Packs/Day Years Used Date Smoking Tobacco: Never Smokeless Tobacco: Never Tobacco Cessation:Counseling Given: Not Answered Alcohol Use Standard Drinks/Week Comments No 0 (1 standard drink = 0.6 oz pur e alcohol) Comments Unknown Sex and Gender Information Value Date Recorded Sex Assigned at Not on file Legal Sex Female 4:53 PM EST Gender Identity Not on file Sexual Orientation Not on file Last Filed Vital Signs Vital Sign Reading Time Taken Comments Blood Pressure 164/92 07/17/2024 2:40 PM EDT Pulse 98 07/17/2024 2:40 PM EDT Temperature - - Respiratory Rate - - Oxygen Saturation 96% 07/17/2024 2:40 PM EDT Inhaled Oxygen Concentration - - Weight 80.9 kg (178 lb 6.4 oz) 07/17/2024 2:40 P M EDT Height 160 cm (5' 3 ) 07/17/2024 2:40 PM EDT Body Mass Index 31.6 07/17/2024 2:40 PM EDT Plan of Treatment Upcoming Encounters Date Type Department Care Team (Late st Contact Info) Description 02/05/2025 1:30 PM EDT Office Visit [facility] [address] [place] [address] Vicente Benson MD [address] [facility] [address] [place] [address] Health Maintenance Due Date Last Done Comments Breast Cancer Screening 1955 Colorectal Cancer Screening: Annual FOBT 2003 Colorectal Cancer Screening: Colonoscopy 2003 Colorectal Cancer Screening: Sigmoidoscopy 2003 Diabetes: Hemoglobin A1C 01/30/2022 05/10/2017 Diabetes: Ophthalmology Exam 01/30/2022 Diabetes: Pedal Pulse Checked 01/30/2022 Diabetes: Sensory Foot Exam 01/30/2022 Diabetes: Visual Foot Exam 01/30/2022 Pneumococcal Vaccine: 65+ Years Completed 11/25/2019, 02/14/2016, 02/14/2016, Additional history exists Influenza Vaccine Completed 08/19/2024, , 09/06/2023, Additional history exists Hepatitis B Vaccine Aged Out No longe r eligible based on patient's age to complete this topic Insurance MORNING SUN [employer] [facility]/Burt ([id number]) [place] [id number] MORNING SUN [employer]urt ([id number]) Care Teams Extern Relationship Specialty Start Date End Date Anuj, DAMON Ramsey [address] [place] [address] PCP - General Geriatric Medicine 07/17/24
--- OUTSIDE RECORDS SUMMARY | 2025-01-15 15:17 | XMS_ITS | Clinical Summary ---
Author Organization [facility] Address [address] [place] [address] Care Team Providers Care Braille Teacher Name Role Phone Mallorie Draper Primary Care Provider [phone] Allergies Active Allergy Reactions Criticality Noted Date [...] pen needle UF (MINI) 31 gauge x /16 daily. 11 03/22/20 18 Active ALCOHOL PREP [...] pt states taking every other week) 02/07/20 Active Trulicity 3 mg/0.5 mL injection dose Inject 3 mg under the skin once a week. Taken 08/29/20 Active tamoxifen (NOLVADEX) 20 mg tablet Take 20 mg by mouth once a day. In the morning. 08/18/20 Active levothyroxine (SYNTHROID, LEVOTHROID) 88 mcg tablet Take 88 mcg by mouth once a day. 09/06/20 Active insulin lispro protamin-lispro 100 unit/mL (75-25) insulin pen Inject under the skin 2 times a day with meals. 24 units in AM (~10 am), 22 units at night (~4 pm) 09/20/20 Active calcium carbonate (Tums Ultra) 470 mg calcium (1,177 mg) tablet,chewable Chew and swallow 2 tablets by mouth 3 times a day with meals. Active Children's Multivitamin Chew and swallow 2 tablets by mouth once a day. 09/12/20 Active FreeStyle Ev 2 [place] [facility] 07/13/20 22 Active calcium carbonate 400 mg calcium (1,000 mg) tablet,chewable Chew and swallow 1,000 mg by mouth. 05/17/20 Active OneTouch Verio Flex meter [facility] 01/25/20 Active omega-3 acid ethyl esters (LOVAZA) 1 gram capsule Take by mouth. Activ e metoprolol tartrate (LOPRESSOR) 25 mg tablet Take 25 mg by mouth. 05/17/20 Active FreeStyle Ev 2 Sensor kit 11/07/20 22 Active acetaminophen (TYLENOL) 325 mg tablet Take 2 tablets (650 mg total) by mouth every 6 hours as needed for pain. 12/09/19 23 Active Additional Information Patient not taking.Reported on 04/24/2023 Calcium Antacid 200 mg calcium (500 mg) chewable tablet 12/21/19 23 Active ergocalciferol (VITAMIN D2) 1,250 mcg (50,000 unit) capsule 12/21/19 23 Active metFORMIN (GLUCOPHAGE) 500 mg tablet Take [...] DAILY. 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 Home meds: tacrolimus [...] nasal swab MRSA PCR. -ICU glycemic protocol. -OBSTETRICIAN AND GYNAECOLOGIST evaluation, if ok to take po diet [...] observation. Cirrhosis 04/05/2009 10/02/2017 Overview (08/18/2017): Idiopathic Encounters Date Type Department Care Team Description 01/08/2025 Refill [facility] [address] [place] [address] Eveline Calderon MD Liver replaced by transplant (HCC) 12/11/2024 Refill [facility] [address] [place] [address] Eveline Calderon MD Liver replaced by transplant (HCC) 11/13/2024 Refill [facility] [address] [place] [address] Eveline Calderon MD Liver replaced by transplant (HCC) 10/16/2024 Refill [facility] [address] [place] [address] Eveline Calderon MD Liver replaced by transplant (HCC) from Last 3 Months Immunizations Immunization Administration Dates Next Due Covid-19, Pfizer, mRNA, [place]illo valent, PF 30 mcg/0.3 mL dose (for [...] Toxoid, and Acellular Pertussis Vaccine, Adsorbed 03/24/2019 Family History Medical History Relation Name Comments No Known Problems Brother 1 No Known Problems Brother 2 No Known Problems Brother 3 Schizophrenia Brother 4 Aortic aneurysm Father from ru pture Diabetes Maternal Grandmother Type 2 on insulin Pancreatic cancer Mother Graves' disease Mother's Sister Bulging e yes Diabetes Paternal Grandfather Type 2 on insulin Heart disease Neg Hx Hip fracture Neg Hx Osteoporosis Neg Hx Stroke Neg Hx Thyroid cancer Neg Hx Relation Name Status Comments Brother 1 Alive Brother 2 Alive Brother 3 Alive Brother 4 Alive Father (Age 69) Maternal Grandmother Mother (Age 49) Mother's Sister Paternal Grandfather Social History Tobacco Use Types Packs/Day Years [...] 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 Not on fi [...] Info) Description 03/03/2025 11:00 AM EDT Follow-Up [facility] [address] [place] [id number] Eveline Calderon MD [address] [place] [address] Health Maintenance Due Date Last Done Comments Cologuard 1955 FOBT / Fit Test 1955 Hepatitis C Screening 1955 Sigmoidoscopy 1954 Osteoporosis Screening 2004 25 Hydroxy / Vitamin D 07/04/2013 2, 07/20/2011, 01/19/2011, Additional history exists PTH 07/04/2013 07/04/2012, 06/27, 01/19/2011, Additional history exists RSV Vaccine (60+ years old and patients) (1 - Risk 60-74 years 1-dose series) 2014 Urine Microalbumin 10/16/2017 10/16/2016, 08/24/2015 Hemoglobin A1C 11/09/2017 05/10/2017 Ophthalmology Exam 02/20/2018 02/20/2017, 0 02/17/2016, 02/16/2015, Additional history exists Phosphorus 12/29/2023 12/29/2022, 12/2022, 12/27/2022, Additional history exists COVID-19 Vaccine ( season) 2024 03/23/2022, 10/06/2021, 02/23/2021, Additional history exists Basic Metabolic Panel 09/05/2024 03/06/2024 , 04/24/2023, 12/29/2022, Additional history exists Alcohol/Substance Use Screening 11/26/2024 Depression Screening and Follow-Up 11/26/2024 Health Care Proxy Review 11/26/2024 Social Drivers of Health Annual Screening 11/26/2024 Hemoglobin 03/06/2025 03/06/2024, 08/27, 04/24/2023, Additional history exists Colon Cancer Screening 10/09/2026 Colonoscopy 10/09/2026 10/09/2016 DTaP,Tdap,and Td Vaccines (3 - Td or Tdap) 03/24/2029 03/24/2019, 03/24/2019 Mammogram Discontinued 03/06/2017, /04/2017, 02/24/2016, Additional history exists Pneumococcal Vaccine: 50+ Years Completed 11/25/2019, 02/14/2016, 02/14/2016, Additional history exists Zoster Vaccines Completed 03/10/2024, 10/08/2023 Influenza Vaccine Completed 08/19/2024, , 08/29/2022, Additional history exists Hepatitis B Vaccines Aged Out No long er eligible based on patient's age to complete this topic Medical Devices Implanted Type Area Icu Registered Nurse Device Identifier Shelf Expiration Date Model / Serial / Lot Mesh Ventral Hernia Soft Square [id number] - [id number] Implanted:Qty: 1 on 11/29/2022 by Pita Clark MD MPH at [facility] Mesh N/A: Abdomen [employer] 05/23/2027 [id number] / / [id number] Description:Verified by RK, NC and ANASTASIYA. Procedures * Due to [place] [employer] law, this organization might not be sharing [...] to Health Maintenance Results * Due to [place] [employer] law, this organization might not be sharing negative HIV tests. * (ABNORMAL) CBC Auto Differential (03/06/2024 3:44 PM EDT) WBC 11.7(H) 3.8 - 10.8 10*3/uL 03/06/2024 5:32 PM EDT [facility] RBC 4.26 3.80 - 5.10 10*6/uL 03/06/2024 5:32 PM EDT [facility] Hemoglobin 12.9 11.7 - 15.5 g/dL 03/06/2024 5:32 PM EDT [facility] Hematocrit 38.9 35.0 - 45.0 % 03/06/2024 5:32 PM EDT [facility] MCV 91.3 80.0 - 100.0 fL 03/06/2024 5:32 PM EDT [facility] MCH 30.3 27.0 - 33.0 pg 03/06/2024 5:32 PM EDT [facility]ITALInt[facility] [employer] [facility] MCHC 33.2 32.0 - 36.0 g/dL 03/06/2024 5:32 PM EDT [facility] [employer] [facility] RDW 15.6(H) 11.0 - 15.0 % 03/06/2024 5:32 PM EDT [facility]ENTEREnlive[facility] Therapeutics[facility] Platelets 389 140 - 400 10*3/uL 03/06/2024 5:32 PM EDT [facility] [employer] [facility] MPV 10.2 7.5 - 12.5 fL 03/06/2024 5:32 PM EDT [facility] [employer] [facility] nRBC % 0.3 /100 WBCs 03/06/2024 5:32 PM EDT [facility]ITALInt[facility]OH[facility] [employer] [facility] nRBC # 0.04(H) <0.01 10*3/uL 03/06/2024 5:32 PM EDT [facility] [facility] Blood Structure of peripheral vein / Unknown Venipuncture / Unknown 03/06/2024 3:44 PM EDT 03/06/2024 3:57 PM EDT us Eveline Calderon MD LAB BLOOD ORDERABLES Final Resul t [facility]ITALQalendraVT [employer] [facility] [address] [place] [address], * (ABNORMAL) Comprehensive Metabolic Panel (03/06/2024 3:44 PM EDT) NA 139 135 - 145 mmol/L 03/06/2024 4:39 PM EDT [facility] K 4.1 3.5 - 5.3 mmol/L 03/06/2024 4:39 PM EDT [facility] Cl 104 97 - 110 mmol/L 03/06/2024 4:39 PM EDT [facility] CO2 25 24 - 32 mmol/L 03/06/2024 4:39 PM EDT [facility] Anion Gap 10 5 - 15 03/06/2024 4:39 PM EDT [facility] Glucose 184(H) 70 - 99 mg/dL 03/06/2024 4:39 PM EDT [facility] Creatinine 1.47(H) 0.50 - 1.20 mg/dL 03/06/2024 4:39 PM EDT [facility] Calcium 8.8 8.7 - 10.7 mg/dL 03/06/2024 4:39 PM EDT [facility] Total Protein 6.4 6.0 - 8.0 g/dL 03/06/2024 4:39 PM EDT [facility] Albumin 3.3(L) 3.5 - 4.8 g/dL 03/06/2024 4:39 PM EDT [facility] Bilirubin, Total 0.4 0.3 - 1.2 mg/dL 03/06/2024 4:39 PM EDT [facility] Alkaline Phosphatase 56 30 - 115 U/L 03/06/2024 4:39 PM EDT [facility] AST 17 10 - 40 U/L 03/06/2024 4:39 PM EDT [facility] ALT 13 10 - 40 U/L 03/06/2024 4:39 PM EDT [facility] BUN 31(H) 7 - 23 mg/dL 03/06/2024 4:39 PM EDT [facility] eGFR 38(L) >=60 mL/min/1 .73m2 03/06/2024 4:39 PM EDT [facility] Comment:The estimated glomer ular filtration rate (eGFR) is calculated using a new formula developed by the NKF-ASN task force to eliminate race-based correction factors. The new formula uses serum/plasma creatinine, age, and gender to determine eGFR. A value below 60mls/min might indicate kidney disease and will be flagged. For additional information, see Vicente et al, Am J Kidney Dis. 2021;79(2):268- 288, A Unifying Approach for GFR estimation: Recommendations of the NKF-ASN Task Force on Reassessing the Inclusion of Race in Diagnosing Kidney Disease . Blood Structure of peripheral vein / Unknown Venipuncture / Unknown 03/06/2024 3:44 PM EDT 03/06/2024 3:57 PM EDT Eveline Calderon MD LAB BLOOD ORDERABLES Final Resul t Performing Organization Address City/[facility]/ZIP Co de Phone Number [facility] [address] [place] [address], [place] * (ABNORMAL) Phosphorus (12/29/2022 5:16 AM EST) Phosphorus 2.2(L) 2.5 - 4.5 mg/dL 12/29/2022 6:12 AM EST [facility] Blood Structure of peripheral vein / Unknown Venipuncture / Unknown 12/29/2022 5:16 AM EST 12/29/2022 5:38 AM EST Maycol Flores MD LAB BLOOD ORDERABLES Final Resu lt Performing Organization Address City/[facility]/ZIP Co de Phone Number [facility] [address] [place] [address], [place] * (ABNORMAL) Hemoglobin A1c (05/10/2017 4:19 PM EDT) Hemoglobin A1C 6.8(H) <5.7 [facility] Comment: UNITS OF MEASURE: % of total [...] for children. eAG (MG/DL) 148 () (calc) [facility] eAG (MMOL/L) 8.2 () (calc) [facility] 05/10/2017 4:19 PM EDT 05/10/2017 5:43 PM EDT Eveline Calderon MD LAB BLOOD ORDERABLES Final Resul t Performing Organization Address City/[facility]/ZIP Co de Phone Number [facility] [address] [facility] [address] [facility], [place] [address], [place] [phone] * Vitamin D, 25-Hydroxy, Total, Immunoassay (07/04/2012 11:33 AM EDT) Vitamin D 25 Oh 41 30 - 100 ng/mL [facility] Comment: Vitamin D Status 25-OH Vitamin D Deficiency: <10 ng/mL Insufficiency: 10-30 ng/mL Sufficiency: 30-100 ng/mL Toxicity: >100 ng/mL 07/04/2012 11:3 3 AM EDT 07/04/2012 12:01 PM EDT Ricardo Mejia MD LAB BLOOD ORDERABLES Final Resul t [facility] [address] [place] [address], * PTH, Intact (without Calcium) (07/04/2012 11:33 AM EDT) Parathyroid Intact 60 12 - 65 pg/mL [facility] 07/04/2012 11:3 3 AM EDT 07/04/2012 12:01 PM EDT us Ricardo Mejia MD LAB BLOOD ORDERABLES Final Resul t [facility] [address] [place] [address], from Last 3 Months or Most Recently Relevant to Health Maintenance Additional Health Concerns Infection Onset Date 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
--- OUTSIDE RECORDS SUMMARY | 2025-01-15 15:17 | XMS_ITS | Continuity of Care Document ---
[facility] Address 1 [facility] [address] [place] [address] Phone Care Team Providers Care Tester Operator Name Role Phone Bernabe Costello MD Unavailable Unavailable Allergies, Adverse Reactions, Alerts Substance Reaction Status Criticality piperacillin Active No Information peanut Active Low Medications Medication Instructions Dosage Effective Dates (start - stop) Status Comments LEVOTHYROXINE 88 MCG TABLET TAKE 1 TABLET BY MOUTH DAILY. - Active Lantus Solostar U-100 Insulin 100 unit/mL (3 mL) subcutaneous pen Inject 37 units SQ once daily. - Active DILTIAZEM 24H ER(CD) 180 MG CP TAKE (1) CAPSULE BY MOUTH DAILY - Active Free Style Ev Kit TRANSDERM use per endocrine orders-ODERED BY ENDO - Active magnesium 250 mg tablet take one tablet by oral route daily - Active scheduling allopurinol 300 mg tablet TAKE 1 TABLET BY MOUTH DAILY. - Active FreeStyle Ev 2 Sensor kit APPLY TOPICALLY TO UPPER ARMS EVERY 14 DAYS. TO BE CHANGED BY SENIOR LIVING. - Active Vitamin D3 25 mcg (1,000 unit) tablet @@TAKE 1 TABLET BY MOUTH DAILY. - Active REPAGLINIDE 1 MG TABLET TAKE 1 TABLET BY MOUTH THREE TIMES A DAY 15 TO 30 MINUTES BEFORE MEALS. - Active Flintstones Gummies chewable tablet take two daily - Active Trulicity 4.5 mg/0.5 mL subcutaneous pen injector Inject 4.5mg once weekly on the same day. - Active 05/28/24: Dose increase Eliquis 5 mg tablet TAKE 1 TABLET BY MOUTH TWICE DAILY - Active metoprolol tartrate 25 mg tablet TAKE 1 TABLET BY MOUTH TWICE DAILY - Active Tums 200 mg (as calcium carbonate 500 mg) chewable tablet CHEW 2 TABLETS BY MOUTH ONCE A DAY AFTER MEALS - Active Lantus U-100 Insulin 100 unit/mL subcutaneous solution use one vial as directed from ekit now - Active mycophenolate mofetil 250 mg capsule Take 1 capsule by mouth twice daily. - Active ATORVASTATIN 40 MG TABLET TAKE 1 TABLET BY MOUTH DAILY - Active pen needle, diabetic 31 gauge x /16 use w/ BG checks - Active Prescribed by [facility] [place] endo anastrozole 1 mg tablet take 1 tablet by oral route every day rx hem/onc - Active zoledronic acid 4 mg/100 mL in mannitol 5 %-water intravenous piggybck infuse 100 milliliter by intravenous route every 6 months rx by hem/onc - Active Fish Oil 1,000 mg (120 mg-180 mg) capsule take 1 capsule by oral route daily - Active acetaminophen 325 mg tablet take 2 tablet by oral route every 8 hours as needed 650 MG - Active FreeStyle Lite Strips use w/ BG check - Active Prescribed by [facility] [place] endo Futuro Anti-Embolism Stockings 18-30mmhg apply to legs in the morning and take off in the evening - Active Astagraf XL 0.5 mg capsule,extended release take 1 capsule by oral route 2 times every day in the morning on an empty stomach, 1 hour before or 2 hours after a meal 0.5 MG - Active Prescribed by Dr. Kvng Jameson Ev 2 [place] use to read blood sugar QID - Active alcohol swabs use when checking BG levels - Active levothyroxine 88 mcg tablet take 1 tablet by oral route every day 88 MCG - No Longer Active Prescribed by [facility] endo Procedures Procedure Date HOME VISIT EST PATIENT OT EVAL LOW COMPLEX 30 MIN HOME VISIT EST PATIENT PER PM REEVAL EST PAT 65+ YR MED NUTRITION INDIV SUBSEQ OT EVAL LOW COMPLEX 30 MIN PT EVAL LOW COMPLEX 20 MIN HOME VISIT EST PATIENT IMMUNIZATION ADMIN IIV NO PRSV INCREASED AG IM PT EVAL LOW COMPLEX 20 MIN MED NUTRITION INDIV SUBSEQ IMMUNIZATION ADMIN HZV VACC RECOMBINANT IM HOME VISIT EST PATIENT HOME VISIT EST PATIENT NURSING FACILITY CARE INIT IMMUNIZATION ADMIN HZV VACC RECOMBINANT IM MED NUTRITION INDIV SUBSEQ OFFICE/OUTPATIENT VISIT EST PT EVAL LOW COMPLEX 20 MIN OT EVAL LOW COMPLEX 30 MIN IMMUNIZATION ADMIN VACC AIIV4 NO PRSRV 0.5ML IM OFFICE/OUTPATIENT VISIT EST MED NUTRITION INDIV SUBSEQ HOME VISIT EST PATIENT ORAL FUNCTION THERAPY ORAL FUNCTION THERAPY ORAL FUNCTION THERAPY ORAL FUNCTION THERAPY ORAL FUNCTION THERAPY EVALUATE SWALLOWING FUNCTION HOME VISIT EST PATIENT PT EVAL LOW COMPLEX 20 MIN NURSING FAC DISCHARGE DAY NURSING FACILITY CARE INIT PT EVAL LOW COMPLEX 20 MIN OT EVAL LOW COMPLEX 30 MIN MED NUTRITION INDIV SUBSEQ DOMICIL/R-HOME VISIT EST PAT Oct-19-2022 IMMUNIZATION ADMIN IIV NO PRSV INCREASED AG IM DOMICIL/R-HOME VISIT EST PAT OT EVAL LOW COMPLEX 30 MIN MED NUTRITION INDIV SUBSEQ ANNUAL NURSING FAC ASSESSMNT MEDICAL NUTRITION INDIV IN PT EVAL LOW COMPLEX 20 MIN OT EVAL LOW COMPLEX 30 MIN OFFICE/OUTPATIENT VISIT NEW Advance Directives Directive Yes / No Effective Date File Name No Information Encounters Encounter Description Practice Location Reason(s) For Visit Diagnoses Date Provider Providers Copied on Encounter [facility], [address] [address], [place], [place], [id number], tel:[phone] [place] No Information 5 Pravin Aqib. [address] [place], [id number], [place]. tel:[phone] [facility], [facility] [place], [place], [id number], [place] tel:[phone] [place] No Information 5 Pravin Aqib. [address] [place], [id number], [place]. tel:[phone] [facility], [address] [address], [place], [place], [id number], [place] tel:[phone] [place] No Information 5 Pravin Aqib. [address] [place], [id number], [place]. tel:[phone] HOME VISIT EST PATIENT [facility], [address] [address], [place], [place], [id number], [place] tel:[phone] [place] Follow-up (chief complaint) No Information 5 Pravin Aqib. [address], [id number], [place]. tel:[phone] [facility], [address] [facility], [place], [place], [id number], [place] tel:[phone] [place] No Information 5 Pravin Aqib. [address], [place], [place], [id number], [place]. tel:[phone] [facility], [facility], [place], [place], [id number], [place] tel:[phone] [place] Encounter for rehabilitatio n evaluation 4 Gerald Yeh. [address] [place], [place], [id number]. tel:[phone] [facility], [facility], [place], [place], [id number], [place] tel:[phone] [place] No Information 4 Pravin Aqib. [address], [place], [place], [id number], [place]. tel:[phone] [facility], [facility], [place], [place], [id number], [place] tel:[phone] [place] No Information 4 Pravin Aqib. [address] [place], [place], [address], [place]. tel:[phone] [facility], [facility], [place], [place], [id number], [place] tel:[phone] [place] No Information 4 Pravin Aqib. [address] [place], [place], [id number], [place]. tel:[phone] HOME VISIT EST PATIENT [facility], [facility], [place], [place], [id number], [place] tel:[phone] [place] Acute Visit (chief complaint) Viral URI with cough Aug- 4 Pravin Aqib. [address] [place], [place], [address], [place]. tel:[phone] PER PM REEVAL EST PAT 65+ YR [facility], [facility], [place], [place], [id number], [place] tel:[phone] [place] Semi-Annual (chief complaint) Disorder of the skin and subcutaneous tissue, unspecifiedEn counter for general adult medical examination without abnormal findingsMixed hyperlipidemi aType 2 diabetes mellitus with hyperglycemia , with long-term current use of insulinLong term (current) use of insulinType 2 diabetes mellitus with diabetic peripheral angiopathy without gangrene, with long-term current use of insulinType 2 diabetes mellitus with diabetic polyneuropath y, with long-term current use of insulinType 2 diabetes mellitus with stage 3a chronic kidney disease, with long-term current use of insulinChroni c kidney disease, stage 3aHypertensiv e chronic kidney disease with stage 1 through stage 4 chronic kidney disease, or unspecified chronic kidney diseaseHypoth yroidism due to Quinton's thyroiditisPr imary hyperparathyr oidismInvasiv e ductal carcinoma of breast, female, leftInfiltrat ing ductal carcinoma of breast, rightImmunosu ppressed statusLiver transplantedC erebral palsy, unspecified typeSecondary hypercoagulab le stateAtrial fibrillation, unspecified type 4 Pravin Aqib. [address], [place], [place], [id number], [place]. tel:[phone] [facility], [address] [address], [place], [place], [id number], [place] tel:[phone] [place] Encounter for nutritional assessment 4 Normile Karen. [address], [place], [place], [address], [place]. tel:[phone] [facility], [facility], [place], [place], [id number], [place] tel:[phone] [place] Encounter for rehabilitatio n evaluation 4 Gerald Yeh. [address] [place], [place], [id number]. tel:[phone] [facility], [address], [place], [place], [id number], [place] tel:[phone] [place] Encounter for rehabilitatio n evaluation 4 Josh Hayes. [address], [id number], [place]. tel:[phone] HOME VISIT EST PATIENT [facility], [address], [place], [place], [id number], [place] tel:[phone] [place] Acute Visit (chief complaint) Hypomagnesemi aFacial skin lesion 4 Pravin Aqib. [address] [place], [place], [id number], [place]. tel:[phone] [facility], [address], [place], [place], [id number], [place] tel:[phone] [place] No Information Sep-2 4 Pravin Aqib. [address], [place], [place], [id number], [place]. tel:[phone] [facility], [address], [place], [place], [id number], [place] tel:[phone] [place] No Information Sep-2 4 Tarun Steinberg. [address] [facility] [place], [id number], [place]. tel:[phone] [facility], [address], [place], [place], [id number], [place] tel:[phone] [place] Follow-up (chief complaint) Hypomagnesemi a Sep- 4 Aileen Gregg. [address] [place], [id number], [place]. tel:[phone] [facility], [address], [place], [place], [id number], [place] tel:[phone] [place] Follow-up (chief complaint) Acquired absence of left breast and nippleLymphed lacie, not elsewhere classified 4 Aileen Castellanosecca. [address] [place], [place], [address], [place]. tel:[phone] [facility], [address], [place], [place], [id number], [place] tel:[phone] [place] medication (chief complaint) Hypomagnesemi a 4 Bhagavatula Ujjwala. [address], [place], [place], [id number], [place]. tel:[phone] [facility], [facility], [place], [place], [id number], [place] tel:[phone] [place] No Information 4 Aileen Marysol. [address] [facility] [address], [place], [place], [id number], [place]. tel:[phone] [facility], [address] [facility], [place], [place], [address], [place] tel:[phone] [place] No Information 4 Bhagavatula Ujjwala. [address], [place], [place], [address], [place]. tel:[phone] [facility], [address] [facility] [address], [place], [place], [address], [place] tel:[phone] [place] Type 2 diabetes mellitus with hyperglycemia , with long-term current use of insulinLong term (current) use of insulin 4 Pitsiladis Meli. [address] [facility] [address], [place], [place], [id number], [place]. tel:[phone] [facility], [facility], [place], [place], [id number], [place] tel:[phone] [place] Encounter for rehabilitatio n evaluation 4 Josh Hayes. [address] [facility] [address], [place], [place], [address], [place]. tel:[phone] [facility], [address] [facility], [place], [place], [address], [place] tel:[phone] [place] No Information 4 Os Roxy. [address] [place], [place], [address], [place]. tel:[phone] [facility], [address] [facility] [facility], [place], [place], [address], [place] tel:[phone] [place] No Information 4 Ferguson Annalise. [address], [place], [id number], [place]. tel:[phone] [facility], [address] [facility], [place], [place], [id number], [place] tel:[phone] [place] Encounter for nutritional assessmentOth er obesity 4 Normile Karen. [address], [address], [place]. tel:[phone] [facility], [address] [facility], [place], [place], [id number], [place] tel:[phone] [place] No Information 4 Os Roxy. [address] [place], [place], [address], [place]. tel:[phone] HOME VISIT EST PATIENT [facility], [address], [place], [place], [id number], [place] tel:[phone] [place] Semi-Annual (chief complaint) Encounter for general adult medical examination without abnormal findingsCardi ac arrhythmia, unspecified cardiac arrhythmia typeHyperlipi demia, unspecified hyperlipidemi a typeType 2 diabetes mellitus with diabetic chronic kidney disease, unspecified CKD stage, unspecified whether fpc insulin useCurrent use of insulinType 2 diabetes mellitus with diabetic peripheral angiopathy without gangrene, unspecified whether salvage determiner insulin useType 2 diabetes mellitus with diabetic polyneuropath y, unspecified whether salvage determiner insulin useHypothyroi dism due to Quinton's thyroiditisAu toimmune thyroiditisPr imary hyperparathyr oidismLiver transplantedH ypertensive chronic kidney disease with stage 1 through stage 4 chronic kidney disease, or unspecified chronic kidney diseaseStage 3a chronic kidney diseaseOsteop enia, unspecified locationCereb ral palsy, unspecified typeEdema, unspecified typeInvasive ductal carcinoma of breast, female, leftInfiltrat ing ductal carcinoma of breast, rightImmunosu ppressed status 4 Os Roxy. [address] [facility] [address], [id number], [place]. tel:[phone] [facility], [address] [address], [place], [place], [id number], [place] tel:[phone] [place] No Information Mar-2 4 Os Roxy. [address] [place], [place], [address], [place]. tel:[phone] HOME VISIT EST PATIENT [facility], [facility], [place], [place], [id number], [place] tel:[phone] [place] Follow-up (chief complaint) Cerebral palsy, unspecified typeMalignant neoplasm of right female breast, unspecified estrogen receptor status, unspecified site of breast Jan-2 4 Os Roxy. [address] [place], [place], [id number], [place]. tel:[phone] [facility], [facility], [place], [place], [id number], [place] tel:[phone] [place] Hypertension, unspecified type Mar-2 4 Os Roxy. [address], [address], [place]. tel:[phone] NURSING FACILITY CARE INIT [facility], [facility], [place], [place], [address], [place] tel:[phone] [place] [facility] Admit (chief complaint) Type 2 diabetes mellitus with diabetic chronic kidney disease, unspecified CKD stage, unspecified whether salvage determiner insulin useStage 3a chronic kidney diseaseEdema, unspecified typeImmunosup pressed statusHyperte nsion, unspecified typeMalignant neoplasm of right female breast, unspecified estrogen receptor status, unspecified site of breast 4 Os Roxy. [address] [place], [place], [address], [place]. tel:[phone] [facility], [address], [place], [place], [id number], [place] tel:[phone] [place] Malignant neoplasm of unspecified site of unspecified female breast 4 Munir Retana. [address], [place], [place], [address], [place]. tel:[phone] [facility], [address], [place], [place], [id number], [place] tel:[phone] [place] Sebaceous cyst 4 Phyllis Woody. [address], [place], [place], [address], [place]. tel:[phone] [facility], [address], [place], [place], [address], [place] tel:[phone] [place] Malignant neoplasm of unspecified site of unspecified female breast 4 Os Roxy. [address], [place], [place], [id number], [place]. tel:[phone] [facility], [address] [facility], [place], [place], [address], [place] tel:[phone] [place] Malignant neoplasm of unspecified site of left female breast 4 Tarun Steinberg. [address], [place], [place], [address], [place]. tel:[phone] [facility], [address], [place], [place], [id number], [place] tel:[phone] [place] Edema, unspecified type 3 Aileen Gregg. [address], [place], [place], [address], [place]. tel:[phone] [facility], [facility], [place], [place], [id number], [place] tel:[phone] [place] No Information 3 Os Roxy. [address], [place], [place], [address], [place]. tel:[phone] [facility], [address] [address], [place], [place], [id number], [place] tel:[phone] [place] Encounter for nutritional assessmentCla ss 1 obesity with serious comorbidity and body mass index (BMI) of 33.0 to 33.9 in adult, unspecified obesity typeBody mass index [BMI] 33.0-33.9, adult 3 Luis F Karen. [address] [facility] [address], [place], [place], [address], [place]. tel:[phone] [facility], [facility], [place], [place], [address], [place] tel:[phone] [place] Malignant neoplasm of unspecified site of left female breast 3 Munir Retana. [address] [place], [address], [place]. tel:[phone] OFFICE/OUTPA TIENT VISIT EST [facility], [facility], [place], [place], [address], [place] tel:[phone] [place] Semi-Annual (chief complaint) Type 2 diabetes mellitus with stage 2 chronic kidney disease, with long-term current use of insulinLong term (current) use of insulinHypoth yroidism due to Quinton's thyroiditisAu toimmune thyroiditisPr imary hyperparathyr oidismHyperte nsive renal disease, stage 1 through stage 4 or unspecified chronic kidney diseaseLiver transplantedI mmunosuppress ed statusCerebra l palsy, unspecified type Aug- 3 Aileen Gregg. [address], [place], [id number], [place]. tel:[phone] [facility], [address] [facility], [place], [place], [address], [place] tel:[phone] [place] Encounter for rehabilitatio n evaluation 3 Davian River. [address] [place], [address]. tel:[phone] [facility], [facility], [place], [place], [address], [place] tel:[phone] [place] Encounter for rehabilitatio n evaluation 3 Gerald Yeh. [address] [facility] [place], [place], [address]. tel:[phone] [facility], [facility], [place], [place], [address], [place] tel:[phone] [place] Type 2 diabetes mellitus with diabetic peripheral angiopathy without gangrene, with long-term current use of insulinLong term (current) use of insulin 3 Luis Alberto Turner. [address] [place], [place], [id number], [place]. tel:[phone] [facility], [facility], [place], [place], [id number], [place] tel:[phone] [place] No Information 3 Os Roxy. [address] [place], [place], [address], [place]. tel:[phone] OFFICE/OUTPA TIENT VISIT EST [facility], [address] [facility] [address], [place], [place], [address], [place] tel:[phone] [place] F/U (chief complaint)S ebaceous Cyst (chief complaint) Hyperlipidemi a, unspecified hyperlipidemi a typeCurrent use of insulinChroni c kidney disease due to diabetes mellitusStage 3a chronic kidney diseaseHypert ensive renal disease, stage 1 through stage 4 or unspecified chronic kidney diseaseCerebr al palsy, unspecified typeInvasive ductal carcinoma of breast, female, leftChronic gout without tophus, unspecified cause, unspecified siteImmunosup pressed statusHypothy roidism due to Quinton's thyroiditisAu toimmune thyroiditisSe baceous cyst Jul- 3 Ephraim Gomez. [address] [place], [address], [place]. tel:[phone] [facility], [address] [facility], [place], [place], [address], [place] tel:[phone] [place] Encounter for nutritional assessmentCla ss 1 obesity without serious comorbidity with body mass index (BMI) of 32.0 to 32.9 in adult, unspecified obesity typeBody mass index [BMI] 32.0-32.9, adult March- 3 Normile Karen. [address], [place], [address], [place]. tel:[phone] [facility], [facility], [place], [place], [address], [place] tel:[phone] [place] No Information 3 Os Roxy. [address], [place], [place], [address], [place]. tel:[phone] HOME VISIT EST PATIENT [facility], [facility], [place], [place], [address], [place] tel:[phone] [place] Semi-Annual (chief complaint) Cardiac arrhythmia, unspecified cardiac arrhythmia typeCerebral palsy, unspecified typeOsteopeni a, unspecified locationPure hypercholeste rolemiaCurren t use of insulinStage 3a chronic kidney diseaseType 2 diabetes mellitus with diabetic chronic kidney disease, unspecified CKD stage, unspecified whether salvage determiner insulin useType 2 diabetes mellitus with diabetic peripheral angiopathy without gangrene, unspecified whether salvage determiner insulin useType 2 diabetes, controlled, with neuropathyHyp othyroidism due to Quinton's thyroiditisAu toimmune thyroiditisPr imary hyperparathyr oidismHyperte nsive renal disease, stage 1 through stage 4 or unspecified chronic kidney diseaseInvasi ve ductal carcinoma of breast, female, leftLiver transplantedI mmunosuppress ed status 3 Os Roxy. [address] [place], [place], [address], [place]. tel:[phone] [facility], [address] [facility], [place], [place], [address], [place] tel:[phone] [place] No Information Apr-0 4-202 3 Os Roxy. [address] [place], [place], [address], [place]. tel:[phone] [facility], [address], [place], [place], [address], [place] tel:[phone] [place] Oropharyngeal dysphagia Mar-2 8 3 Caselden Kristin. [address] [place], [place], [address], [place]. tel:[phone] [facility], [address] [facility], [place] [place], [place], [id number], [place] tel:[phone] [place] Oropharyngeal dysphagia Mar-2 0-202 3 Caselden Kristin. [address] [place], [place], [id number], [place]. tel:[phone] [facility], [address] [facility], [place], [place], [id number], [place] tel:[phone] [place] Oropharyngeal dysphagia Mar-1 5 3 Caselden Kristin. [address] [place], [place], [id number], [place]. tel:[phone] [facility], [address] [facility], [place], [place], [id number], [place] tel:[phone] [place] No Information Mar-0 8-202 3 Os Roxy. [address] [place], [place], [id number], [place]. tel:[phone] [facility], [address], [place], [place], [id number], [place] tel:[phone] [place] Oropharyngeal dysphagia Mar-0 2-202 3 Caselden Rkistin. [address] [place], [place], [id number], [place]. tel:[phone] [facility], [address] [facility], [place], [place], [id number], [place] tel:[phone] [place] Oropharyngeal dysphagia 3 Casesaad Foster. [address] [place], [place], [id number], [place]. tel:[phone] [facility], [address] [facility], [place], [place], [id number], [place] tel:[phone] [place] Dysphagia, unspecified typeOther dysphagia 0 3 Alysa Foster. [address] [place], [place], [id number], [place]. tel:[phone] [facility], [facility], [place], [place], [id number], [place] tel:[phone] [place] Non-recurrent abdominal hernia without obstruction or gangrene, unspecified hernia type 0 3 Os Roxy. [address] [place], [place], [id number], [place]. tel:[phone] HOME VISIT EST PATIENT [facility], [facility], [place], [place], [id number], [place] tel:[phone] [place] [facility] Evaluation (chief complaint)P ost Hospital Evaluation (chief complaint) Cerebral palsy, unspecified typeLiver transplantedS tage 3a chronic kidney disease b0 3 Os Roxy. [address] [place], [place], [id number], [place]. tel:[phone] [facility], [address], [id number], [place] tel:[phone] [place] No Information b0 3 Luis Albertolaura Healyn. [address] [place], [place], [id number], [place]. tel:[phone] [facility], [address], [id number], [place] tel:[phone] [place] Dysphagia, unspecified type 3 Luis Alberto Turner. [address] [place], [place], [address], [place]. tel:[phone] [facility], [facility], [place], [place], [id number], [place] tel:[phone] [place] Difficulty in walking, not elsewhere classified 3 Davian Perico. [address] [place], [address]. tel:[phone] NURSING FAC DISCHARGE DAY [facility], [address] [address], [place], [place], [id number], [place] tel:[phone] [facility] DC (chief complaint) Type 2 diabetes mellitus with diabetic chronic kidney disease, unspecified CKD stage, unspecified whether salvage determiner insulin useStage 3a chronic kidney diseaseLiver transplantedA bdominal hernia without obstruction and without gangrene, recurrence not specified, unspecified hernia typeImmunosup pressed statusCerebra l palsy, unspecified type 3 Deep Morales. [address] [place], [place], [id number], [place]. tel:[phone] NURSING FACILITY CARE INIT [facility], [facility] [address] [place] [address], [id number], [place] tel:[phone] [place] [facility] ADMIT (chief complaint) Non-recurrent abdominal hernia with obstruction without gangrene, unspecified hernia typeLiver transplantedI mmunosuppress ed statusType 2 diabetes mellitus with diabetic chronic kidney disease, unspecified CKD stage, unspecified whether salvage determiner insulin useCardiac arrhythmia, unspecified cardiac arrhythmia typeLeukocyto sis, unspecified type 3 Deep Morales. [address] [place], [place], [id number], [place]. tel:[phone] [facility], [address], [id number], [place] tel:[phone] [place] No Information 3 Os Roxy. [address], [place], [place], [address], [place]. tel:[phone] [facility], [facility], [place], [place], [id number], [place] tel:[phone] [place] Encounter for rehabilitatio n evaluation 2 Davian Perico. [address], [place], [address]. tel:[phone] [facility], [facility], [place], [place], [id number], [place] tel:[phone] [place] Encounter for rehabilitatio n evaluationAlt eration in performance of activities of daily livingMild cognitive impairment, so stated 2 Gerald Kearnsah Beth. [address] [facility] [address] [place], [place], [id number]. tel:[phone] [facility], [facility], [place], [place], [id number], [place] tel:[phone] [place] Encounter for nutritional assessmentExc essive carbohydrate intakeDeficie ncy of other specified nutrient elementsOther obesity 2 Normile Karen. [address], [place], [place], [id number], [place]. tel:[phone] DOMICIL/R-HO ME VISIT EST PAT [facility], [address] [facility], [place], [place], [id number], [place] tel:[phone] [place] Hypertensive chronic kidney disease with stage 1 through stage 4 chronic kidney disease, or unspecified chronic kidney diseaseHyperl ipidemia, unspecified hyperlipidemi a typeType 2 diabetes mellitus with diabetic chronic kidney disease, unspecified CKD stage, unspecified whether fpc insulin useCurrent use of insulinHypoth yroidism due to Quinton's thyroiditisAu toimmune thyroiditisPr imary hyperparathyr oidismStage 3a chronic kidney diseaseImmuno suppressed statusLiver transplantedC erebral palsy, unspecified typeHX: breast cancerDiabete s mellitus with peripheral vascular diseaseType 2 diabetes, controlled, with neuropathy 2 Os Roxy. [address] [place], [place], [id number], [place]. tel:[phone] [facility], [address], [place], [place], [id number], [place] tel:[phone] [place] No Information 2 Os Roxy. [address] [facility] [place], [address], [place]. tel:[phone] DOMICIL/R-HO ME VISIT EST PAT [facility], [facility], [place], [place], [id number], [place] tel:[phone] [place] PHV (chief complaint) HerniaLiver transplantedH istory of small bowel obstruction Jul- 2 Os Roxy. [address] [place], [place], [id number], [place]. tel:[phone] [facility], [address] [facility], [place], [place], [id number], [place] tel:[phone] [place] Liver transplantedH ernia 2 Luis Alberto Johnny. [address] [place], [place], [id number], [place]. tel:[phone] [facility], [address] [facility], [place], [place], [id number], [place] tel:[phone] [place] No Information 2 Os Roxy. [address] [place], [id number], [place]. tel:[phone] [facility], [address], [place], [place], [id number], [place] tel:[phone] [place] No Information 2 Os Roxy. [address] [place], [place], [id number], [place]. tel:[phone] [facility], [address], [place], [place], [id number], [place] tel:[phone] [place] Hypertension, unspecified type 2 Luis Alberto Johnny. [address] [place], [place], [id number], [place]. tel:[phone] [facility], [address] [address], [place], [place], [id number], [place] tel:[phone] [place] Encounter for rehabilitatio n evaluationAlt eration in performance of activities of daily livingMild cognitive impairment, so stated 2 Gerald Beltran Mallorie Yeh. 101 [facility], [place], [place], [address]. tel:[phone] [facility], [address] [address], [place], [place], [id number], [place] tel:[phone] [place] Encounter for nutritional assessmentAbn ormal weight gain 2 Normile Karen. [address] [place], [place], [id number], [place]. tel:[phone] ANNUAL NURSING FAC ASSESSMNT [facility], [address] [address], [place], [place], [id number], [place] tel:[phone] [place] Semiannual (chief complaint) Hypertensive chronic kidney disease with stage 1 through stage 4 chronic kidney disease, or unspecified chronic kidney diseaseHyperl ipidemia, unspecified hyperlipidemi a typeCurrent use of insulinHypoth yroidism due to Quinton's thyroiditisAu toimmune thyroiditisPr imary hyperparathyr oidismLiver transplantedS tage 3a chronic kidney diseaseHx of left mastectomyImm unosuppressed statusCerebra l palsy, unspecified type 2 Os Roxy. [address] [place], [place], [id number], [place]. tel:[phone] [facility], [address] [address], [place], [place], [id number], [place] tel:[phone] [place] Port-A-Cath in placeHx of left mastectomy 2 Os Roxy. [address] [facility] [place], [address], [place]. tel:[phone] [facility], [address], [place], [place], [address], [place] tel:[phone] [place] Liver transplanted 2 Os Roxy. [address] [facility] [place], [address], [place]. tel:[phone] [facility], [address], [place], [place], [id number], [place] tel:[phone] [place] No Information 1 Luis Alberto Turner. [address] [place], [place], [id number], [place]. tel:[phone] [facility], [address], [place], [place], [id number], [place] tel:[phone] [place] Type 2 diabetes mellitus without complication, unspecified whether salvage determiner insulin use 1 Os Roxy. [address] [facility] [place], [id number], [place]. tel:[phone] [facility], [address], [place], [place], [id number], [place] tel:[phone] [place] Encounter for nutritional assessmentDirussell pritchett, encounter for 1 Sara Pool. [address] [facility] [place], [address]. tel:[phone] [facility], [address] [facility], [place], [id number], [place] tel:[phone] [place] Encounter for rehabilitatio n evaluation 1 Davian River. [address] [facility] [place], [address]. tel:[phone] [facility], [address], [place], [place], [id number], [place] tel:[phone] [place] Encounter for rehabilitatio n evaluationMil d cognitive impairment, so statedAlterat ion in performance of activities of daily living 1 Gerald Beltran Mallorie Yeh. [address] [place], [place], [address]. tel:[phone] OFFICE/OUTPA TIENT VISIT [facility], [address] [address], [place], [place], [id number], [place] tel:[phone] [place] PEE (chief complaint) Encounter for general adult medical examination without abnormal findingsEncou nter for screening for respiratory tuberculosisH ypertension, unspecified typeSBE (subacute bacterial endocarditis) prophylaxis candidateCard iac arrhythmia, unspecified cardiac arrhythmia typeHyperlipi demia, unspecified hyperlipidemi a typeType 2 diabetes mellitus without complication, unspecified whether salvage determiner insulin useCurrent use of insulinHypoth yroidism due to Quinton's thyroiditisAu toimmune thyroiditisPr imary hyperparathyr oidismVitamin D deficiencyHx of tracheostomyL iver transplantedH X: breast cancerHx of left mastectomyPer amber history of other malignant neoplasm of skinImmunosup pressed statusGout, unspecified cause, unspecified chronicity, unspecified siteOsteopeni a, unspecified locationCereb ral palsy, unspecified typeEdema, unspecified type 1 Os Roxy. [address], [place], [place], [id number], [place]. tel:[phone] [facility], [address] [address], [place], [place], [id number], [place] tel:[phone] [place] HX: breast cancerCardiac arrhythmia, unspecified cardiac arrhythmia type 1 Sara Pool. [address], [place], [address]. tel:[phone] [facility], [address] [address], [place], [place], [id number], [place] tel:[phone] [place] No Information 1 Luis Alberto Turner. [address] [place], [place], [id number], [place]. tel:[phone] [facility], [address] [address], [place], [place], [id number], [place] tel:[phone] [place] Intake (chief complaint) Encounter for general adult medical examination without abnormal findingsEncou nter for screening for respiratory tuberculosis 1 Luis Alberto Turner. [address] [place], [place], [id number], [place]. tel:[phone] Family History Family Member Type Diagnosis Age At Onset No Information Immunizations Vaccine Date Status Comments Fluzone High Dose administered So urce: New Immunization Record Zoster recombinant subunit administered S ource: New Immunization Record Zoster recombinant subunit administered S ource: New Immunization Record FLUAD QUAD - SENIO R DOSE administered Source: New Immuniza tion Record Fluzone High-Dose administered Source: New Immunization Record COVID-19 Pfizer administered Source: Othe r Registry COVID-19 Moderna administered Source: Oth er Registry Flu-IIV3(TIV)-High Dose administered Sour ce: Other Registry COVID-19 Gurinder (J&J) unknown Sourc e: Other Registry COVID-19 Pfizer administered Source: Othe r Registry COVID-19 (JJ) administered Source: Other Provider Flu-aIIV4 administered Source: Other R egistry PPSV23 administered Source: Other R egistry Flu-IIV3(TIV)-High Dose administered Sour ce: Other Registry DT-Peds administered Source: Other R egistry Tdap administered Source: Other R egistry pneumococcal conjugate vaccine, 13 valent administered Source: Other Provid er Payers Payer name Insurance type Covered libertarian ID Authoriza tion(s) [facility] 16 [id number] [facility] 16 [id number] [facility] 16 [id number] [facility] 16 [id number] [facility] 16 [id number] [facility] 16 [id number] Social History Type Description Quantity Date Captured Comments Sex Female Smoking Status No Information Chief Complaint And Reason For Visit No Information Reason For Referral Reason For Referral No Information Plan Of Treatment Date Type Action Status Referral Ordered: Dermatology (related to Facial skin lesion) ordered Referral Ordered: Referrals: Occupational Therapy ordered Referral Ordered: Dentistry (related to Encounter for general adult medical examination without abnormal findings) ordered Referral Ordered: Ophthalmology (related to Diabetes mellitus with peripheral vascular disease) ordered Referral Ordered: Referrals: Ophthalmology. Evaluate and treat ordered Referral Ordered: Referrals: Dentistry. Evaluate and treat ordered Referral Ordered: Referrals: Dermatology. Evaluate and treat Appointment date/timeframe: 11/13/2024 ordered Referral Ordered: Referrals: Oncology. Evaluate and treat Appointment date/timeframe: 02/22/2024 ordered Referral Ordered: Referrals: Oncology ordered Referral Referred To: Dr Gonzalez Ordered: Referrals: Podiatry. Dr Gonzalez. Follow-up and treat ordered Referral Ordered: Referrals: Gastroenterology. Evaluate and treat Appointment date/timeframe: 02/05/2024 ordered Referral Referred To: Speech Therapy Ordered: Referrals: Therapies/Rehabilitation. Speech Therapy. Evaluate and treat ordered Referral Ordered: Referrals: Gastroenterology. Follow-up and treat ordered Referral Ordered: Referrals: General Surgery Appointment date/timeframe: 02/07/2022 ordered Referral Ordered: Referrals: Transplant Surgery ordered Referral Ordered: Referrals: Endocrinology, Diabetes and Metabolism Appointment date/timeframe: 11/02/2021 ordered Referral Ordered: SCR MAMMO BI INCL CAD ordered Referral Ordered: Referrals: Cardiology Appointment date/timeframe: 11/28/2021 ordered Future Order: Lab Order LAURA Strong ([id number]), Sent on: Sent Future Order: Lab Order BASIC MN TABOLIC PANEL ([id number]), Sent on: Sent Future Order: Lab Order LAURA Strong ([id number]), Ordered on: Ordered Future Order: Lab Order BASIC MN TABOLIC PANEL ([id number]), Ordered on: Ordered Future Order: Radiology Order Zheng ne density study (by DEXA); axial skeleton (e.g., hips, pelvis, spine) ([id number]), Ordered on: Ordered Future Order: Radiology Order Ma mmogram (Screen); Bilat, 2-view study of each breast, incl computer-aided detection when performed ([id number]), Ordered on: Ordered History Of Present Illness Encounter Date Complaint History Of Prese nt Illness Follow-up Encounter create d in error Acute Visit Seema is a 69 yea rs old female who was seen for an acute visit at . According to the nursing staff, Seema has had a terrible cough for the last few days. Last night, she had a coughing fit that made her vomit. Seema states that she has had this cough but otherwise she is doing well. She does not have any other complaints or concerns at this time. Semi-Annual Seema is a 68 yea r old female who has been enrolled in the [facility]ACE program since 09/2021 and is being seen for their semiannual exam.Patient had been seen in her room at [facility].There have been no ER visits, hospital admissions, or SNF stays in the last 6 months. Diagnoses Reviewed.-No new diagnosesReferrals reviewed.Consults: w/in the last year-Dental: no dentures in place, referral made-Podiatry: cristy Gonzalez q3 months-Vision: Dr. Leiva; order in place-Endocrinology: [facility] 09/25/23-no changes made-Hem/Onc: [facility] 02/22/24-post right masectomy; med changes made; DEXA ordered-Surgery: [facility] 02/21/24-post right masectomy-Dermatology: referral in for f/u on sebacious cyst scheduled for 11/13/24-Liver transplant GI: [facility] liver clinic Dr. Jung 02/05/24: have not received notes at this timeScreenings: Continuing to screen-Colonoscopy: 2015, next due in 10 years (2025)-Bone density: 10/10/2022, scheduled every other year (due 2023). Order in place.4 Ms:Mentation: Oriented and able to follow conversation. Little understanding of medical history d/t cognitive deficit. Invoked. -Orientation: A&Ox3-MOCA: 09/2023: Medications:-Medications reviewed.-Changes: NoMobility:-Ambulates: Independently-Falls: none reported in the last 6 monthsWMM:-Advance Directives reviewed: full code. No MOLST on file but agreed upon by HCP-What is your goal for care? What would you like from your healthcare team? to stay healthy-HCP: Invoked. HCP/Brother Chuck Acute Visit Seema is a 68 yea rs old female who was seen for an acute visit and a follow up at . She is doing well and has no concerns at this time. One of her friends noted a lesion on the right side of her nose. It was first noticed about 2 weeks ago and has not changed since then. She does not have any other symptoms at this time. Follow-up recurring hypoma gnesemiascheduling bi-weekly labs x3 monthsscheduling daily Mg replacement Follow-up PPT seen [facility] for arm lymphedema. Referral placed. medication Noted critical m agnesium. PPT at , nurse is onsite and will eval. Sent new order for oral replacement MG 250mg daily x4 days. will re-eval labs on Sunday. Confirmed with pharmacy they will deliver this today. Semi-Annual Comments: Seema i s a 68 year old female who has been enrolled in the PACE program since 09/2021 and is being seen for their semiannual exam.Patient had been seen in her room at [facility].Diagnoses Reviewed.-No new diagnosesReferrals reviewed.Consults: w/in the last year-Dental: no dentures in place, referral made-Podiatry: cristy Gonzalez q3 months-Vision: Dr. Leiva; order in place-Endocrinology: [facility] 09/25/23-no changes made-Hem/Onc: [facility] 02/22/24-post right masectomy; med changes made; DEXA ordered-Surgery: [facility] 02/21/24-post right masectomy-Dermatology: referral in for f/u on sebacious cyst scheduled for 11/13/24-Liver transplant GI: [facility] liver clinic Dr. Jung 02/05/24: have not received notes at this timeScreenings: Continuing to screen-Colonoscopy: 2015, next due in 10 years (2025)-Bone density: 10/10/2022, scheduled every other year (due 2023). Order in place.4 Ms:Mentation: Oriented and able to follow conversation. Little understanding of medical history d/t cognitive deficit. Invoked. -Orientation: A&Ox3-MOCA: 09/2023: Medications:-Medications reviewed.-Changes: NoMobility:-Ambulates: Independent-Falls: none reportedWMM:-Advance Directives reviewed: full code (not in chart- HCP to bring into SE)-What is your goal for care? What would you like from your healthcare team? to stay healthy-HCP: Invoked. HCP/Brother Chuck; discussed plan of care w/ HCP who was in agreement. All questions were answered at this time. Comments: Seema clemons s a 68 year old female who is being seen today for a SNF admission to [facility].Ppt currently lives at [facility]: 02/05[facility]24-02[facility]08[facility]24[facility]Course complicated by hypotension, MARIA ESTHER, uncontrolled hyperglycemia and subsequently uncontrolled blood pressure which resolved. Discharged to rehab for further assist w/ ALEX drain management and insulin. Right breast cancers/p right mastectomy and sentinel lymph node biopsy on 02/04History of L breast cancer treated with simple mastectomy and chemotherapy, now with right breast cancer.SNF: [facility] 02/08/24-02/14/24ospital medications reviewed. Updated EMR.SNF summery: no significant medical information during SNF stay. Ppt required SNF for drain and insulin management. F/u visits:-PCP -Nan Gusman (surgeon)Today:-Ppt reports she feels well and is adjusting back at [facility]. No concerns at this time. Incision site w/o concerns for infection. ALEX drains had been emptied by [facility] prior to my arrival per ppt. BP 132/92. Stable at this time- would continue current medication regimen. Follow-up SNF Admit Seema is a 68 yea r old female who is being seen today for a SNF admission to [facility].Ppt currently lives at [facility]: 02/05/24-02/08/24CC: scheduled right mastectomy w/ Dr. [facility] course summery:-Course complicated by hypotension, MARIA ESTHER, uncontrolled hyperglycemia and subsequently uncontrolled blood pressure which resolved. Discharged to rehab for further assist w/ ALEX drain management and insulin. Right breast cancers/p right mastectomy and sentinel lymph node biopsy on 02/04History of L breast cancer treated with simple mastectomy and chemotherapy, now with Rt breast cancer.PLAN: -Ice to axilla, no ice to chest incision- Continue tamoxifen daily, -Monitor ALEX outputs- Incentive spirometryoutpatient follow up with surgery would be arranged by surgery service. would be discharged with ALEX drain.SNF: [facility] 02/08/24-TB02/08/24: Hospital medications reviewed.Updated EMR.Started:-Tamoxifen 20mg daily -Multivitamin 1 chew xpymn-Rfdor-1 Polyunsaturated Fatty Acids 1000mg daily Changed:-Insulin Lispro Protamine-Insulin Lispro Mix75/25 KwikPen subcutaneous suspension 20 unit(s) Subcutaneous Injection 2 times a day with meals- changed back to home dose of inject 22 units before breakfast and 16 units before dinner-Metprolol 25mg BID (per hospital discharged on daily as a home dose but ppt was on it BID- changed back)Not implementing at this time per hospital discharge:-clonidine 0.2mg daily (can start if BPs become a problem)-lisinopril 5mg daily (old medication)-metformin 500mg BID (old medication)Additional orders:-weekly labs including CBC and CMP-empty ALEX drains (2) daily and PRN- bring copy of outputs to postop visit-steristrips remain in place until fallen off or post op visitF/u visits:-PCP -Nan Gusman (surgeon)Today:-Ppt reports feeling well. Denies any pain. She reports working w/ [employer]. -Incision site looks C/D/I no signs of infection-[address] measuring about 100cc eachPlan:-Can return back to [facility] after ALEX drains removed and ppt is medically stable-Monitor weekly labsReviewed plan w/ nursing at SNF. Semi-Annual Patient is a 68 year old female who has been enrolled in the PACE program since 09/2021 and is being seen for their semi annual exam. She lives at [facility] and comes to the [facility] [place] [facility] as needed. Medications reviewed and reconciled. Diagnosis reviewed. Advanced directives reviewed. PPT has HCP activated and was unable to make decision regarding her advanced directives. Interview: she reports she is doing well overall. Had a long discussion with her and her brother regarding medications as she has missed several months of her tacromilus and cellcept. They are agreeable to seeing GI for urgent visit and she denies any acute concerns. PPT in great spirits today. Denies any other (new) concerns. States she is very healthy. Diagnoses Reviewed.-No new diagnosesReferrals reviewed.Consults:-Liver transplant physician (GI): [facility] liver clinic, Dr. Jung- last seen 09/2022 for s/p liver transplant for cruptogenic cirrhosis. Missing meds since the spring, urgent referral to GI.-Property Management Coordinator: 10/2022- [facility]- no changes-Oncology: [facility] [place] Dr. Coto- Continue tamoxifen for a total of at least 5 years. Mammogram due in September (oncology schedule). 2000/breast cancer stage II-III of left breast s/p masectomy w/ completed chemo on tamoxifin-continuing to take at this time for prophylaxis. -Endocrinology: [facility] endocrine- currently on numerous medications r/t DM. Last seen 2Recommended increase the 75/25 in AM to 28 units.-Dermatology: [facility] (previously doing yearly skin checks)Vision: Dr. Leiva, sees regularly.Dental: no dentures in place, referral made. Podiatry: [facility] podiatry.Screenings: Continuing to screen-Mammogram: 10/10/2022, yearly mammograms. Order in place for September.-Colonoscopy: 2016, next due in 10 years (2025)-Bone density: 10/10/2022, scheduled every other year (due 2023). Order in place.4 Ms:Mentation: Oriented and able to follow conversation. Little understanding of medical history d/t cognitive deficit. Invoked. -Orientation: A&Ox3-MOCA: 09/2022: , 09/2023Medications:-Medications reviewed.-Changes: NoMobility:-Ambulates: Independent-Falls: none reportedWMM:-Advance Directives reviewed: full code (not in chart- HCP to bring into SE)-HCP: Invoked. HCP/Brother Chuck; discussed plan of care w/ HCP who was in agreement. All questions were answered at this time. -What is your goal for care? What would you like from your healthcare team? to stay healthyIn the last six months:Hospitalizations - noneSNF admits - noneED visits - noneFalls - none(+)ROS: cognitive impairment, developmental delay. Denies diarrhea, n/v, GI complaints. EXAM: alert to self, able to follow conversation, pleasant demeanor, no abd distention, hepatomegaly, bxx4, RRR, LCTAPlan: labs today, urgent GI referral. She has restarted her medications. Sebaceous Cyst F/U Comments: Being seen in follow up as she is starting with a new VNA service and she needs provider visit. She lives at an [facility].Requires VNA services for insulin administration. Her FSBS has been running in the mid 100s. She uses a CGM and self monitors. Comments: Left p osterior popliteal space with dry open sebaceous cystNo periwound erythemaJane brought it up as something that has been bothering her. She has not pain in the area. Comments: Seema clemons s a 67 year old female who has been enrolled in the PACE program since 09/2021 and is being seen for their semiannual exam.Patient had been seen in her room at [facility].Diagnoses Reviewed.-No new diagnosesReferrals reviewed.Consults:-Liver transplant physician (GI): [facility] liver clinic, Dr. Jung- last seen 09/2022 for s/p liver transplant for cruptogenic cirrosis 2000/breast cancer stage II-III of left breast s/p masectomy w/ completed chemo on tamoxifin-continuing to take at this time for prophylaxis. Follow up in 1 year.-Property Management Coordinator: 10/2022- [facility]- no changes-Oncology: [facility] [place] [facility] Dr. Coto- Continue tamoxifen for a total of at least 5 years. Mammogram due in September (oncology schedule). Return in 6 months for f/u.-Endocrinology: [facility] endocrine- currently on numerous medications r/t DM. Last seen ecommended increase the 75/25 in AM to 28 units.-Dermatology: [facility] (previously doing yearly skin checks)Vision: Dr. Leiva, sees regularly.Dental: no dentures in place, referral made. Podiatry: [facility] podiatry.Screenings: Continuing to screen-Mammogram: 10/10/2022, yearly mammograms. Order in place for September.-Colonoscopy: 2015, next due in 10 years (2025)-Bone density: 10/10/2022, scheduled every other year (due 2023). Order in place.4 Ms:Mentation: Oriented and able to follow conversation. Little understanding of medical history d/t cognitive deficit. Invoked. -Orientation: A&Ox3-MOCA: 09/2022: Medications:-Medications reviewed.-Changes: NoMobility:-Ambulates: Independent-Falls: none reportedWMM:-Advance Directives reviewed: full code (not in chart- HCP to bring into SE)-HCP: Invoked. HCP/Brother Chuck; discussed plan of care w/ HCP who was in agreement. All questions were answered at this time. -What is your goal for care? What would you like from your healthcare team? to stay healthy Semi-Annual Post Hospital Evaluation Post Hospital Evaluation Seema is a 67 year old female who is being seen today for a PHV. [facility] 12/26/22-12/29/22Dx: MARIA ESTHER and UTI-Prior to admission lico was hypotensive and labs were ordered showing a GFR 14 and creat of 3.51. Lico is a liver transplant ppt (2000) and has been following Dr. Calderon at [facility]. Discussed lab findings and they advised to send to [facility]. Ppt did have a recent hernia repair in November at [facility] with complications including hemmorhagic shock and was treated for aspiration pneumonia. MARIA ESTHER was thought to be ATN in the setting of recent adverse reaction to zosyn. Ppt received IVF where creat improved to 1.5 upon discharge. Started on cipro IV on 12/27 culture negative. Discharged home to [facility].Med changes:-d/c'd clonidine -d/c'd lasix-d/c'd lisinopril-d/c'd metoprolol succinate-started metoprolol tartrate 25mg BID-resume cellcept (prescribed by Dr. Molinaday:-Ppt reports feeling better . Negative ROS. No complaints at this time. BP stable 124/82.Plan: -order CBC and BMP for in 1 week-med changes updated-appt with Dr. Calderon on 01/04/23 [facility] SEEMA DAVID [facility] SUMMARY Patient encounter date 12/20/22DC date [facility]21[facility] for robotic repair of large abdominal wall hernia Postop hypotensive SBP to w/ assoc bloody emesis. ALEX drain output 'overtly' bloody. She was transfused and brought back to the OR. Clot was evacuated and a small pulsatile bleeding vessel identified and tied off. She was xfer to SICU and had hypoxia and tachycardia on extubationCT showed effusion and she was tx with Lasix Daily cellcept was held per Txp Surgery given rising leukocytosis. Tacro was kept at 0.5mg BID. On day of txf, she was started on MiSS, NPH 15u BID, and Lispro pre-prandial 4u qAC. Skin bx c/f drug eruption vs viral exanthema Derm cont to follow and recommended cont Triamcinolone ointment She was discharged with ALEX drains x2 in place She will follow up as an outpatient in the transplant clinic. --[facility]Cellcept HELDPrograf 0.5mg BID continued Zestril 5mg QD added --SNF COURSEPpt did very well at the SNFShe remained without painShe did well in PTOTShe followed up with her surgeon on 12/19/22Notes from that visit report JPs were removedHalf her rené removedPlan to followup in 2 weeks with xplant services to remove the restThey may also weigh in on restarting her cellcept at that time Plan to return to home with ongoing therapy if neededMeds rec'd and dc order placed in chart APPOINTMENTS01/04/23 [facility] liver transplant [id number]/55T 98.4HR 8602 96ROSNo N V F Cno CP SOBNo ABD PAIN diarrheaNo c/o pain (+)BM(+)VOID(+)flatusPEGEN age appearing female NAD nontoxic appearingPSYCH very pleasant and cooperative with exam alert and orientedHEART rrr (+)s1s2 LUNG ctabABD midline incision CDI with half the remiaing rené, ALEX sites CDI without erythemaEXT no edema erythema calf painSKIN ppt had 3 sutures just medial and superior to the left patella. These were removed and steris placed. No dehis erythema edema or drainage. SNF ADMIT [facility] ADMITHPIfrom [facility] to [facility] on 11/29 for robotic repair of large abdominal wall hernia Postop hypotensive SBP to w/ assoc bloody emesis. ALEX drain output 'overtly' bloody. She was transfused and brought back to the OR. Clot was evacuated and a small pulsatile bleeding vessel identified and tied off. She was xfer to SICU and had hypoxia and tachycardia on extubationCT showed effusion and she was tx with Lasix Daily cellcept was held per Txp Surgery given rising leukocytosis. Tacro was kept at 0.5mg BID. On day of txf, she was started on MiSS, NPH 15u BID, and Lispro pre-prandial 4u qAC. Skin bx c/f drug eruption vs viral exanthema Derm cont to follow and recommended cont Triamcinolone ointment She was discharged with ALEX drains x2 in place "She will follow up as an outpatient in the transplant clinic. MED CHANGES--Added:Cipro 500mg BID d6iXcnymmgpfqj 100mg BID i4h--Myyvhzb:Cellcept HELDPrograf 0.5mg BID --DCAmoxTresibaEWUBZA580/82RR 16T 99, recheck 97.8HR 86 palp02 96%ROSNo N V F Cno CP SOBNo ABD PAIN diarrheaNo c/o pain whatsoever(+)BM(+)VOID(+)flatusPEGEN age appearing female NAD nontoxic appearingPSYCH very pleasant and cooperative with exam alert and orientedHEART rrr (+)s1s2 LUNG ctabABD midline incision CDI with rené, ALEX draine x2 with scant serosangEXT no edema erythema calf painSKIN no rash lesions or erythema PHV Comments: Seema rogers a 66yo female resented to [place] ED with less than 1 day of abdominal pain, nausea, and two episodes of emesis with concern for high-grade SBO at the level of her ventral hernia. She was subsequently transferred to [facility] d/t her history of liver transplant and the complexity of her ventral hernia.Upon arrival to [facility] her abdominal pain had resolved, and on exam had no tenderness to palpation, non-peritonitic. NGT was placed at [place], decompressed overnight. Passing flatus. Also had a UA positive for infection. 1 dose of ceftriaxone and immunosuppressive medication held for a day. Tolerating the advancement in her diet. Had a BM. Deemed stable for discharge. Med changes: clonidine 0.2mg (previously 0.3mg)Today: Ppt appears comfortable has no problems and is "all better now . ROS negative.Plan: family requesting a follow up with [facility] GI as pt had been following (order in place)-Chuck (brother) reports [facility] appt is for 09/19/22 at 9:30a. No other concerns at this time. Semiannual Apr-22-2022 Comments: Seema clemons s a 66 year old female who has been enrolled in the PACE program since 09/2021 and is being seen for their semiannual exam.Patient had been seen in her room at [facility].There have been no hospitalizations, SNF admission and/or ER visits in the last six months.CC: no concerns reported from pt nor brother/HCP Chuck.Diagnoses Reviewed.-No new diagnosesConsults:-Liver transplant physician (GI): [facility] liver clinic, Dr. Jung- last seen 09/2021 for s/p liver transplant for cruptogenic cirrosis 2000/breast cancer stage II-III of left breast s/p masectomy w/ completed chemo on tamoxifin-continuing to take at this time for prophylaxis. Follow up in 1 year (09/2022).-Property Management Coordinator: [facility] Dr. Blackman- Will consider changing over to [facility] practices once they determine the need for eliquis as they have been monitoring for some time. -Oncology: [facility] [place] Dr. Coto- Discussed w/ pt, would like to keep as they have her currently on Tamoxifen-Endocrinology: [facility] endocrine- currently on numerous medications r/t DM. Last seen 02/10/22. Recommended starting a freestyle ev which has been ordered for better BS monitoring. -Dermatology: [facility]- had been following yearly for skin survalience s/p basal cell carcinoma. Had discussed keeping their upcoming appt in October and would then see [facility] derm as needed- no appt in chartVision: Dr. Leiva, sees regularly.Dental: no dentures in place, referral made. Podiatry: [facility] podiatry.Screenings: Continuing to screen-Mammogram: 10/04/21, yearly mammograms.-Colonoscopy:2016, next due in 10 years (2025)-Bone density: last in 2019, scheduled every other year (due 2021)4 Ms:Mentation: Oriented and able to follow conversation. Little understanding of medical history d/t cognitive deficit. Invoked. -Orientation: A&Ox3-MOCA: 09/2021: 30Medications:-Medications reviewed.-Changes: NoMobility:-Ambulates: Independent-Falls: none reportedWMM:-Advance Directives reviewed: presumed full code. Brother will be getting form in the mail.-HCP: Invoked. HCP/Brother Chuck-What is your goal for care? What would you like from your healthcare team? to stay healthy PEE Comments: Rodolfo south is a 66 year old female who is being seen for their post enrollment exam.She currently is a resident at [facility]. Patient and brother/HCP, Chuck, have no concerns at this time. Diagnoses reviewed.Medications reviewed.Advance Directives discussed- pt and family is unsure at this time, would like to talk to all family members before final decision. Conversation started. -Liver transplant physician: [facility] liver clinic, Dr. Jung- sees regularly. -Property Management Coordinator: [facility] Dr. Blackman- currently pt is on a holter monitor, loan closer determining if she should remain on eliquis. She is scheduled to see him 10/11/21. Will consider changing over to [facility] practices once they determine the need for eliquis as they have been monitoring for some time. -Oncology: [facility] Dr. Coto- Discussed w/ pt, would like to keep as they have her currently on Tamoxifen-Endocrinology: [facility] endocrine- currently on numerous medications r/t DM. Will put out a referral to [facility] endo. -Dermatology: [facility]- had been following yearly for skin survalience s/p basal cell carcinoma. Discussed keeping their upcoming appt in October and would then see [facility] derm as needed. Vision: Dr. Leiva, sees regularly.Dental: no dentures in place, referral made. Podiatry: will be transitioning to [facility] podiatry.Mammogram: 10/04/21, yearly mammograms.Bone density: last in 2019, scheduled every other year (due 2021)Colonoscopy: 2015, next due in 10 years (2025)WMM: Being able to care for self at current functional level. Intake Very pleasant wo man, accompanied by her [id number], brother Chuck and briefcase sewer from [facility]. The patient apparently had intake in February however decision was made to delay proceeding due to living circumstances/roommate. The roommate has unfortunately moved out due to illness and the patient is now at the head of the waiting list for [facility] assisted living.We regrettably have virtually no medical records. There are a number of notes/lists that were printed out from the [facility] system however, no PCP records nor records from any of the subspecialists that she sees ([facility]). Interestingly, the family had no awareness of the fact that we would assume primary care role and additional details although my colleague very kindly explained this, presumably again.The brother did have an up-to-date medication list. Of note new medications include Eliquis and metoprolol. The brother reports that there was an arrhythmia (I strongly suspect atrial fibrillation) in the context of chemotherapy.The patient is seemingly reasonably independent in ADLs. She currently receives twice daily VNA visits for med box fill as well as insulin administration and her GLP-1 administration on . The patient checks fingersticks independently, by report. The patient describes herself as being worse before but now doing quite well and reports that she dances, loves to cook.There is no reported incontinence. There is no reported dysphagia. Hearing is fairly good. She sees biometry teacher, the exact extent of any vision impairment is unclear (visible injection of the sclera and ? stabismus vs amblyopia). She has had no recent falls. She does not use any ambulatory aid.The patient expressed some ambivalence regarding changing physicians however was reassured by the fact that her brother would continue to accompany her to appointments. They inquired regarding dates and attendance, were told this may not proved to be possible in the midst of current pandemic however that activities in general should exist at the assisted living. We discussed the notion of service delivery requests.With regard to subspecialty physicians I explained that they can ask for coverage out of network however that the following would be retained at the very least:Liver transplant physician at [facility] (Dr. Calderon)Indicated that the tight rope walker (Dr. Carlos) is in networkDr. Faizan Leiva, her biometry teacher is in networkI explained that if needed oncology service (likely needed as she is on maintenance tamoxifen), endocrinology (very complicated regimen), GI, surgery, cardiology would likely be transitioned to [facility] practice. I explained that this helps maintain continuity of care and allows us access to records. I indicated that [facility] is our preferred hospital and that we strongly encourage its use somewhat negating any benefit of continuity with previous providers as they do not go to [facility]. I did not specifically address the survey supervisor. They are aware that there is a survey supervisor that goes to [facility] although I am unclear if it someone we are affiliated with.Medication, which is extensive, was updated via the list that the brother provided.Problem list was updated to the best of my ability based upon the limited information available to us. Suggestion that there was a bone density done in 2019. I cannot explicitly know why she is seeing a tight rope walker. The loan closer seems to surround the issue of the arrhythmia, again presumed atrial fibrillation. The role of the chemist proteins is unclear. The general surgeon performed the mastectomy. The patient currently has a port however it is hoped that it will be removed prior to her enrollment.In summary, very pleasant woman and equally pleasant and involved family. Significant medical complexity, the full extent of which we likely do not know as we have no medical records beyond those that were kindly printed out by Nurse Headley. I see no barrier to her enrollment. Will need twice daily VNA for now, it is conceivable that we will decrease to once daily as she is on long-acting insulin in the morning, I do not see anything in the evening. If the assisted living assumes management of her medications via [facility] Functional Status Date Functional Assessmen t No Information Instructions Date Instruction Additional Infor hetal Patient had Atrial F ibrillation during chemotherapySince then, she has not had another episodeSinus rhythm todayContinue anticoagulationContinue rate control with BB and CCBWill continue to monitor Related to Atrial fibrillation, unspecified type Patient had Afib s/p chemoSecondary hypercoagulable stateContinue EliquisWill continue to monitor Related to Secondary hypercoagulable state History of CP docume nted in preenrollment records. Currently not following neurologist or is on any medications. Brother reports she had CP since , she used to see somebody for developmental disability. She never required braces . Cognitive delay evident HCP invoked Related to Cerebral palsy, unspecified type Prograf ongoing Cont inues to follow up with [facility]- Dr Olson continue to monitor Related to Liver transplanted Ppt is on immunosupp ression medications due to her history of liver transplant and breast cancer Continue tacrolimus for liver transplantContinue Anastrozole for breast cancerWill continue to monitor Related to Immunosuppressed status Chemotherapy was the first line of action; tried tamoxifen where they found in ineffective and was switched to anastrazoleS/P BL mastectomyPer Oncology recommendations: Will continue Vitamin D 1000iu once daily, Anastrozole 1mg once daily, Zoledronic acid 4mg every 6 months. Surveillance: Plan for 6 monthly visit for at least 5 years and annually thereafter. Related to Infiltrating ductal carcinoma of breast, right Patient with BL inva sive ductal carcinomaFollowed by OncologyPt being treated currently for active breast cancer of the left breast s/p left mastectomy in 06/2021.Initial treatment was chemotherapy which ppt did not tolerate. After risk vs benefit discussion with family, chemo was not resumed and ultimately decided to treat with tamoxifen for a total of 5 years.Tamoxifen was unsuccessful and they had concerns of it leading to osteoporosis among other risk factors therefore it was discontinued and she was started on anastrozole after her right breast mastectomy in 01/2024Will continue to monitor Related to Invasive ductal carcinoma of breast, female, left Patient with primary hyperparathyroidismCalcium and PTH within rangeCurrently asymptomaticPt does not want a surgeryWill continue to monitor Related to Primary hyperparathyroidism Patient with hypothy roidism secondary to Quinton's TSH within rangePt remains asymptomatic at this timeContinue LevothyroxineWill continue to monitor 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 Patient with HTN and CKD, stage 3aCurrently stableBPs have been within good rangeContinue current managementWill continue to monitor Related to Hypertensive chronic kidney disease with stage 1 through stage 4 chronic kidney disease, or unspecified chronic kidney disease Patient with Type 2 DM and CKDCurrently stableWill continue to monitor Related to Type 2 diabetes mellitus with stage 3a chronic kidney disease, with long-term current use of insulin Patient with Type 2 DM and CKDCurrently stableWill continue to monitor Related to Chronic kidney disease, stage 3a Patient with Type 2 DM and peripheral polyneuropathyAbnormal monofilament examDiscussed checking feet daily at nightOptimal control of blood sugarsWill continue to monitor Related to Type 2 diabetes mellitus with diabetic polyneuropathy, with long-term current use of insulin Patient with Type 2 DMMost recent HgA1C 8.2Continue current management for optimal sugar levels controlPt with diabetic peripheral angiopathy as evidenced by dry, shiny, hairless LE BL as well as decreased pedal pulsesContinue statinWill continue to monitor Related to Type 2 diabetes mellitus with diabetic peripheral angiopathy without gangrene, with long-term current use of insulin Patient with Type 2 DM with hyperglycemiaFBS numbers have improved but still mildly elevated at 177 on the morning of examContinue insulinContinue Trulicity and PrandinWill keep the same dosage for now to avoid hypoglycemiaWill check HgA1C with next visitWill continue to monitor Related to Type 2 diabetes mellitus with hyperglycemia, with long-term current use of insulin Patient with Type 2 DM with hyperglycemiaFBS numbers have improved but still mildly elevated at 177 on the morning of examContinue insulinContinue Trulicity and PrandinWill keep the same dosage for now to avoid hypoglycemiaWill check HgA1C with next visitWill continue to monitor 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 to ocean transportation intermediary (current) use of insulin Patient with mixed h yperlipidemiaLast lipid panel shows levels well within rangeContinue LipitorWill continue to monitor Related to Mixed hyperlipidemia Patient is here for Semi-Annual examCurrently stable and no acute issuesHCP is activatedNo MOLST- Full CodeWill continue to monitor and provide support Related to Encounter for general adult medical examination without abnormal findings Patient with a dry c ough but no other symptoms at this timePt states that she is overall doing well and has no concernsMost likely due to a viral URI as multiple other participants at the [facility] have been sick with similar symptomsSymptomatic managementEncouraged ample hydration Related to Viral URI with cough Pt is noted to have a small lesion on the right side of her noseThere is some excoriation and dried blood on the lesionThere has been no changes in the lesion since it first appeared two weeks agoWill continue to monitor at this time since there is no red flags notedWill recheck in two weeks and will refer to Dermatology if there is any suspicious features Related to Facial skin lesion Pt was previously no markus to have low Mg levelsRecent repeat labs show Mg at 1.5Mg is now within good rangeContinue Mg supplementsWill continue to monitor Related to Hypomagnesemia 9.17.24 still low at 1.4scheduling bi-weekly labs x3 monthsscheduling daily Mg replacement8.9.24critical lab1.4 today at [id number] daily replacement sent recheck labs sunday Related to Hypomagnesemia critical lab1.4 toda y at [id number] daily replacement sent recheck labs sunday Related to Hypomagnesemia -Blood sugars runnin g high. She has daily VNA.-Increase Lantus to 34 units (0.43u/kg/day), increase Trulicity to 4.5mg weekly, continue prandin 1mg per meal (with consideration to increase prandin next week if numbers still running high, which I suspect they will be). Related to Type 2 diabetes mellitus with hyperglycemia, with long-term current use of insulin -Blood sugars runnin g high. She has daily VNA.-Increase Lantus to 34 units (0.43u/kg/day), increase Trulicity to 4.5mg weekly, continue prandin 1mg per meal (with consideration to increase prandin next week if numbers still running high, which I suspect they will be). Related to ocean transportation intermediary (current) use of insulin Followed by hem/oncP pt being treated currently for active breast cancer of the left breast s/p left mastectomy in 06/2021.Initial treatment was chemotherapy which ppt did not tolerate. After risk vs benefit discussion w/ family hem onc felt it was not in the ppts best interest to resume chemo and ultimately decided to treat w/ tamoxifen for a total of 5 years.Tamoxofin was unsuccessful and they had concerns of it leading to osteoporosis among other risk factors therefore it was d/c'd and she was started on anastrozole after her right breast masectomy 01/2024 Related to Invasive ductal carcinoma of breast, female, left Chemotherapy was the first line of action; tried tamoxifin where they found in ineffective and was switched to anastrazoleBil masectomyHem/onc:RECOMMENDATIONS: - Vitamin D 1000iu once daily - Start anastrozole 1mg once daily. This should be continued for 7-10 years in her situation - Start zoledronic acid 4mg every 6 months. - I will obtain records from [facility]. It is likely that she would be a candidate for abemaciclib. Although it has not been studied in the recurrent setting, she does have a prior history of locally advanced breast cancer for which it is medically indicated. This will be discussed with her at her next visit. If any concerning findings from report, I will probably consider staging scans - she has no symptoms suggestive today- Surveillance: Plan for 6 monthly visit for atleast 5 years and annually thereafter.- Return to clinic in 3 months for a follow up to determine how she is tolerating anastrozole with ADDISON and with me in 6 months- We will plan for a baseline DEXA scan.- [facility] genetic testing. Related to Infiltrating ductal carcinoma of breast, right Ppt is on immunosupr ession medications d/t her history of liver transplant and breast cancer Liver transplant ppt-Continue tacrolimousBreast cancer-Chemotherapy was the first line of action; tried tamoxifin where they found in ineffective and was switched to anastrazole- Start anastrozole 1mg once daily. This should be continued for 7-10 years in her situation - Start zoledronic acid 4mg every 6 months. - I will obtain records from [facility]. It is likely that she would be a candidate for abemaciclib. Although it has not been studied in the recurrent setting, she does have a prior history of locally advanced breast cancer for which it is medically indicated. This will be discussed with her at her next visit. If any concerning findings from report, I will probably consider staging scans - she has no symptoms suggestive today Related to Immunosuppressed status History of CP docume nted in preenrollment records. Currently not following neurologist or is on any medications. Brother reports she had CP since , she used to see somebody for developmental disability. She never required braces . Cognitive delay evident; invoked Related to Cerebral palsy, unspecified type Uses compression sto cking, 1+ feet edemaCurrently on lasix. Related to Edema, unspecified type CKD08/2023 GFR 64Avo id nephrotoxic medications Related to Stage 3a chronic kidney disease Bone density exams p erformed every other year per HCP. Next scan due in 2021- order is in place. Currently taking vitamin D.Vit D level ordered. Related to Osteopenia, unspecified location Humulog mix 75-25 an d [facility]01/29/24: A1C 8.2Abnormal monofilimentDaily feet checks Related to Type 2 diabetes mellitus with diabetic polyneuropathy, unspecified whether fpc insulin use Continued to be foll ow by [facility] [facility] endocrinology primarily for diabetes. 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 08/2023: TSH w/ reflex 3.08Ordered TSHContinue levothyroxine Related to Autoimmune thyroiditis Currently takes mult ivitamin, tums, and vit D. 08/2023 calcium 8.81/2021 PTH 129Ordered vit D, and calcium level.Currently followed by endocrine primarily for diabetes.-No changes in regards to hyperpartathyroidism Related to Primary hyperparathyroidism Prograf [facility] Dr. Jung- had f/u appt on 01/04/2023 for s/p liver transplant for cruptogenic cirrosis Related to Liver transplanted BPs have been stable Continue metoprolol and diltiazemCKDGFR 64Avoid nephrotoxic medications Related to Hypertensive chronic kidney disease with stage 1 through stage 4 chronic kidney disease, or unspecified chronic kidney disease 01/29/24: A1C 8.2Conti nue home medicationsCKDGFR 64Avoid nephrotoxic medications Related to Type 2 diabetes mellitus with diabetic chronic kidney disease, unspecified CKD stage, unspecified whether salvage determiner insulin use Continue Humulog mix 75-25 Continue Trulicity Follows endocrineBG between 100-200 Related to Current use of insulin Followed by endocrin eContinue insulin01/29/24: A1C 8.2Decreased pulses. Shiny hairless guzman LE. -Continue statin Related to Type 2 diabetes mellitus with diabetic peripheral angiopathy without gangrene, unspecified whether salvage determiner insulin use She is currently on eliquis and metoprolol for afib.Pt had afib during her chemotherapy tx per brother/HCP. [facility] had assessed ppt on 05/17/22 where they were going to continue the eliquis and metoprolol until they further review ppts holter and ECHO from [facility] [facility].No longer following cardiology regularlyToday: RRR Related to Cardiac arrhythmia, unspecified cardiac arrhythmia type 10/02/23 Total chol 2 67, HDL 42, TRI 467, Ratio 6.4, Non HDL 225, GLU 176-Continue LipitorLipid panel for semiMay consider increasing lipitor Related to Hyperlipidemia, unspecified hyperlipidemia type Ppt reports she feel s well and is adjusting back at [facility]. No concerns at this time. Incision site w/o concerns for infection. ALEX drains had been emptied by [facility] prior to my arrival per ppt. BP 132/92. Stable at this time- would continue current medication regimen.Continue Tamoxifen F/u w/ surgeon outpt Related to Malignant neoplasm of right female breast, unspecified estrogen receptor status, unspecified site of breast History of CP docume nted in preenrollment records. Currently not following neurologist or is on any medications. Brother reports she had CP since , she used to see somebody for developmental disability. She never required braces . Cognitive delay evident; [id number]/2022 MOCA MOCA Related to Cerebral palsy, unspecified type Had period of hypote nsion which subsequently turned into hypertension. Would like to monitor BPs and if BPs remain elevated may implement their recommendations of adding clonidine 0.2mg daily Related to Hypertension, unspecified type 02/08/24 [facility]Course complicated by hypotension, MARIA ESTHER, uncontrolled hyperglycemia and subsequently uncontrolled blood pressure which resolved. Discharged to rehab for further assist w/ ALEX drain management and insulin. Right breast cancers/p right mastectomy and sentinel lymph node biopsy on 02/04History of L breast cancer treated with simple mastectomy and chemotherapy, now with Rt breast cancer.PLAN: -Ice to axilla, no ice to chest incision- Continue tamoxifen daily, -Monitor ALEX outputs- Incentive spirometryoutpatient follow up with surgery would be arranged by surgery service. would be discharged with ALEX drain.Plan:-Can return back to [facility] after ALEX drains removed and ppt is medically stable-Monitor weekly labs Related to Malignant neoplasm of right female breast, unspecified estrogen receptor status, unspecified site of breast Had period of hypote nsion which subsequently turned into hypertension. Would like to monitor BPs and if BPs remain elevated may implement their recommendations of adding clonidine 0.2mg daily Related to Hypertension, unspecified type Ppt is immunosupress ed from tamoxifen as well as s/p liver transplant on cellcept and prograf. Oncology note: 02/2023: Continue tamoxifen for a total of at least 5 years. Related to Immunosuppressed status History of edema; 2+ in guzman legs, 1+ guzman feetEncourage to elevateHad order for lasix but was never given-May consider scheduling if edema becomes unmanageable w/ elevation and compression Related to Edema, unspecified type 01/29/24: A1C 8.2Conti nue home medicationsGFR -02/05 33-02/07 60Avoid nephrotoxic medications Related to Type 2 diabetes mellitus with diabetic chronic kidney disease, unspecified CKD stage, unspecified whether fpc insulin use GFR -02/05 33-02/07 60 Avoid nephrotoxic medications Related to Stage 3a chronic kidney disease Ppt is immunosupress ed from tamoxifen as well as s/p liver transplant on cellcept and prograf. Oncology note: 02/2023: Continue tamoxifen for a total of at least 5 years. Mammogram due in September (oncology schedule). Return in 6 months for f/u.has missed multiple doses, has recently restarted and has urgent f/u with GI. no s/sx of acute rejection Related to Immunosuppressed status History of CP docume nted in preenrollment records. Currently not following neurologist or is on any medications. Brother reports she had CP since , she used to see somebody for developmental disability. She never required braces . Cognitive delay evident; [id number]/2022 MOCA MOCA Related to Cerebral palsy, unspecified type Diltiazem 24 ER 180m g dailyMetoprololControlledeGFR 60s, stage 2 currently, has historically been stage 3a Related to Hypertensive renal disease, stage 1 through stage 4 or unspecified chronic kidney disease Prograf ongoing Cell cept held d/t leurkocytosis after surgery- [facility] Mc[facility]e had f/u appt on 01/04/2023 for s/p liver transplant for cruptogenic cirrosis 2001/breast cancer stage II-III of left breast s/p masectomy w/ tamoxifinPlan: Follow up THIAGO Related to Liver transplanted labs today, continue synthroid R elated to Autoimmune thyroiditis Currently takes mult ivitamin, tums, and vit D. 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 Gently pack with Iodoform and followed by aalcium alignate and tegaderm dressingMay showerKeep dressing on and re evaluate on SundayIf dressing falls off not need to recover. Related to Sebaceous cyst Ppt is immunosupress ed from tamoxifen as well as s/p liver transplant on cellcept and prograf. Oncology note: 02/2023: Continue tamoxifen for a total of at least 5 years. Mammogram due in September (oncology schedule). Return in 6 months for f/u. Related to Immunosuppressed status 11/2022: TSH w/ refle x to T4: 1.39-Continue levothyroxineContinued to be follow by [facility] endocrinology primarily for diabetes. 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 Related to Autoimmune thyroiditis Asymptomatic.Current ly taking allopurinol. Related to Chronic gout without tophus, unspecified cause, unspecified site History of CP docume nted in preenrollment records. Currently not following neurologist or is on any medications. Brother reports she had CP since , she used to see somebody for developmental disability. She never required braces . Cognitive delay evident; [id number]/2022 MOCA Related to Cerebral palsy, unspecified type Last seen by hem onc on 03/02/2023pt being treated currently for active breast cancer of the left breast s/p left mastectomy in 06/2021.Initial treatment was chemotherapy which ppt did not tolerate. 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 MARIA ESTHER was thought to be ATN in the setting of recent adverse reaction to zosyn. Ppt received IVF where creat improved to 1.5 upon discharge. Started on cipro IV on 12/27 culture negative. Related to Stage 3a chronic kidney disease 03/23/23 A1c 6.312/ A1c 8.510/ A1C 9.5Humalog mix 75-25 inject 22units before breakfast and 16 units before dinner Related to Chronic kidney disease due to diabetes mellitus 03/23/23 Chol/Trig/HD L/LDL 157/241/41/834//: Ratio 5.8, TC 167, HDL 29, LDL 98, TG 298Atorvastatin 20mg po daily Related to Hyperlipidemia, unspecified hyperlipidemia type Humalog mix 75-25 in ject 22units before breakfast and 16 units before dinner Related to Current use of insulin Ppt is immunosupress ed from tamoxifen as well as s/p liver transplant on cellcept and prograf. Oncology note: 02/2023: Continue tamoxifen for a total of at least 5 years. Mammogram due in September (oncology schedule). Return in 6 months for f/u. Related to Immunosuppressed status Prograf ongoing Cell cept held d/t leurkocytosis after surgery- [facility]- had f/u appt on 01/04/2023 for s/p liver transplant for cruptogenic cirrosis 2000/breast cancer stage II-III of left breast s/p masectomy w/ tamoxifinPlan: Follow up in 1 year Related to Liver transplanted Last seen by hem onc on 03/02/2023pt being treated currently for active breast cancer of the left breast s/p left mastectomy in 06/2021.Initial treatment was chemotherapy which ppt did not tolerate. 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 Blackman and was switched to [facility] loan closer. -Currently taking clonidine, cardizem, lisinopril, and metoprolol Related to Hypertensive renal disease, stage 1 through stage 4 or unspecified chronic kidney disease Currently takes mult ivitamin, tums, and vit D. 08/2022 PTH 129, calcium 8.5Ordered vit D, and calcium level.Currently followed by endocrine primarily for diabetes.-No changes in regards to hyperpartathyroidism Related to Primary hyperparathyroidism Dose increased per e ndocrine.75/25 insulin: 28 units in the AM 20 units in PMA1C 8.5Abnormal monofiliment Related to Type 2 diabetes, controlled, with neuropathy 11/2022: TSH w/ refle x to T4: 1.39-Continue levothyroxineTSH ordered for semiContinued to be follow by [facility] endocrinology primarily for diabetes. 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 Related to Autoimmune thyroiditis A1C 10/2022: 8.5Rece nt increase in insulinDecreased pulses. Shiny hairless guzman LE. -Continue statin Related to Type 2 diabetes mellitus with diabetic peripheral angiopathy without gangrene, unspecified whether salvage determiner insulin use Dose increased per e ndocrine.75/25 insulin: 28 units in the AM 20 units in PMFollowed by [facility] endocrinology. She is on numerous medications r/t DM2 that are being managed by [facility] endo: repaglinide, tresiba, and [id number] 8.5Recent hospitalization 12/2022 showed labs were ordered showing a GFR 14 and creat of 3.51. MARIA ESTHER was thought to be ATN in the setting of recent adverse reaction to zosyn. Ppt received IVF where creat improved to 1.5 upon discharge. Related to Type 2 diabetes mellitus with diabetic chronic kidney disease, unspecified CKD stage, unspecified whether fpc insulin use [facility] -12/29/22Dx: MARIA ESTHER and UTI-Prior to admission ppt was hypotensive and labs were ordered showing a GFR 14 and creat of 3.51. MARIA ESTHER was thought to be ATN in the setting of recent adverse reaction to zosyn. Ppt received IVF where creat improved to 1.5 upon discharge. Started on cipro IV on 12/27 culture negative.Ordered CBC, CMP today Related to Stage 3a chronic kidney disease A1C 8.5Followed by [facility] endocrinology. She is on numerous medications r/t DM2 that are being managed by [facility] endo: repaglinide, tresiba, and trulicityMost recent visit recommended a freestyle ev for better BS monitoring. This has been ordered. Related to Current use of insulin 03/24/22: Ratio 5.8, TC 167, HDL 29, LDL 98, TG 298-Increased lipitor based upon the above resultsLipid panel ordered for semi Related to Pure hypercholesterolemia Bone density exams p erformed every other year per HCP. Next scan due in 2021- order is in place. Currently taking vitamin D.Vit D level ordered. Related to Osteopenia, unspecified location She is currently on eliquis and metoprolol for afib.Pt had afib during her chemotherapy tx per brother/HCP. [facility] had assessed ppt on 05/17/22 where they were going to continue the eliquis and metoprolol until they further review ppts holter and ECHO from [facility]. May consider d/c'ing in the future. Today: RRR Related to Cardiac arrhythmia, unspecified cardiac arrhythmia type History of CP docume nted in preenrollment records. Currently not following neurologist or is on any medications. Brother reports she had CP since , she used to see somebody for developmental disability. She never required braces . Cognitive delay evident; [id number]/2022 MOCA Related to Cerebral palsy, unspecified type s/p surgical repaira bd incision CDI with staplesJP dremoved abd soft NT good bowel sounds (+)flauts/BMfollowup with surgeon in next 1-2 weeks no pain use pain PRNabd exam otherwise benign Related to Non-recurrent abdominal hernia without obstruction or gangrene, unspecified hernia type [facility] -12/29/22Dx: MARIA ESTHER and UTI-Prior to admission ppt was hypotensive and labs were ordered showing a GFR 14 and creat of 3.51. MARIA ESTHER was thought to be ATN in the setting of recent adverse reaction to zosyn. Ppt received IVF where creat improved to 1.5 upon discharge. Started on cipro IV on 12/27 culture negative.Plan: -order CBC and BMP for in 1 week Related to Stage 3a chronic kidney disease Prograf ongoing Cell cept held d/t leurkocytosis after surgery- restarted this hospitalizationFollow up appt 01/04/23 Related to Liver transplanted History of CP docume nted in preenrollment records. Currently not following neurologist or is on any medications. Brother reports she had CP since , she used to see somebody for developmental disability. She never required braces . Cognitive delay evident; clgeowx07/2021 MOCA 20/30 Related to Cerebral palsy, unspecified type Difficulty swallowin g ordering Speech Eval Related to Dysphagia, unspecified type despite existing CP, ppt did well in PTOT post opcog delay at her baseline she is cleared to dc home on 12/21/22she will followup with her PCP Related to Cerebral palsy, unspecified type s/p surgical repaira bd incision CDI with staplesJP dremoved abd soft NT good bowel sounds (+)flauts/BMfollowup with surgeon in next 1-2 weeks no pain use pain PRNabd exam otherwise benign Related to Abdominal hernia without obstruction and without gangrene, recurrence not specified, unspecified hernia type CKD: GFR- 39trend la bs routinely avoid nephrotoxins Related to Stage 3a chronic kidney disease prograf ongoing cell cept held d/t leurkocytosis after surgeryppt to f/u with xplant team appt 01/04/23 Related to Liver transplanted cont lispo, trulicit ymetformin was added to med list at [facility] not on prior to hospital per PCP Recordsppt will followup with PCP after dcmed regimen can be reassessed at that time Related to Type 2 diabetes mellitus with diabetic chronic kidney disease, unspecified CKD stage, unspecified whether fpc insulin use dc summary reports l eukocytosis on dischargelevel unknownCBC pendingon cipro and doxycycline for ppx coverage afebrile nontoxic appearingno concerning focus for infection on examcont eval Related to Leukocytosis, unspecified type RRR on examcontinues on eliquis for A/Ccont eval Related to Cardiac arrhythmia, unspecified cardiac arrhythmia type post op:cont lispro, metformin, truclicity, trend POCs adjust mgmt as neededPOCs may trend higher during the post op period eval ongoingadmit labs pending for GFR/Crdc paper work report her renal fx was preserved during admission Related to Type 2 diabetes mellitus with diabetic chronic kidney disease, unspecified CKD stage, unspecified whether fpc insulin use see 'liver transplanted' Related to Immunosuppressed status prograf ongoing cell cept held d/t leurkocytosis after surgeryppt to f/u with xplant team facility admin staff arraning appt Related to Liver transplanted s/p surgical repaira bd incision CDI with staplesJP drain with scant serosangabd soft NT good bowel sounds (+)flauts/BMfollowup with surgeon in next 1-2 weeks facility admin staff working on f/u date no pain use pain PRNeval ongoing Related to Non-recurrent abdominal hernia with obstruction without gangrene, unspecified hernia type See Type 2 diabetesAbnormal mono filiment Related to Type 2 diabetes, controlled, with neuropathy Decreased pulses. Sh iny hairless guzman LE. -Continue statin Related to Diabetes mellitus with peripheral vascular disease History of CP docume nted in preenrollment records. Currently not following neurologist or is on any medications. Brother reports she had CP since , she used to see somebody for developmental disability. She never required braces . Cognitive delay evident; [id number]/2021 MOCA 20/30 Related to Cerebral palsy, unspecified type Left mastectomy in .[facility] [facility] General Surgery: DCIS of the left breast s/p lumpectomy w/ sentinel node biopsy followed by mastectomy of left side Post op course was complicated by hematoma of the left chest requiring reoperation on the day of surgery. Ppt was started on chemo but could not tolerate treatment. She was terminated and started on tamoxifen which she still is on at this time. General and Vascular surgery note 04/07/22: No evidence of recurrence disease in the left chest Brother reports she is taking Tamoxifin for breast cancer prophylaxis. Yearly mammograms due in 09/2022 Related to HX: breast cancer Currently takes mult ivitamin, tums, and vit D. 09/2021 PTH 161, calcium 8.7Ordered vit D, and calcium level. Related to Primary hyperparathyroidism CKD: GFR- 39-Avoid n ephrotoxic medications Related to Stage 3a chronic kidney disease Hx of liver transpla nt, currently taking tacrolimus and mycophenolate prescribed by Dr. Calderon of [facility] liver transplant clinic. Referral made for f/u. Related to Immunosuppressed status [facility] liver clinic ( GI), Dr. 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 She will have labs drawn [id number] at [facility]. Plan: Follow up in 1 year- order in place Related to Liver transplanted 03/24/22: Ratio 5.8, TC 167, HDL 29, LDL 98, TG 298-Increased lipitor based upon the above resultsLipid panel ordered for semi Related to Hyperlipidemia, unspecified hyperlipidemia type Endocrine: 08/23/22: Humalog 75/25 increased from 20 units bid to 24units in the AM and 20units in PM. 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 Blackman and was switched to [facility] loan closer. -Currently taking clonidine, cardizem, lisinopril, and metoprolol Related to Hypertensive chronic kidney disease with stage 1 through stage 4 chronic kidney disease, or unspecified chronic kidney disease History of ventral a nd umbilical hernias.History of liver transplant at [facility], should follow up with them for evaluation of this hernia and any possible need for intervention now that it is clear she is not acutely obstructed. Related to Hernia [facility] liver clinic ( GI), Dr. 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 She will have labs drawn [id number] at [facility]. Plan: Follow up in 1 year. Related to Liver transplanted Presented to [facility] h less than 1 day of abdominal pain, nausea, and two episodes of emesis with radiographic concern for high-grade small bowel obstruction at the level of her ventral hernia. Given her history of liver transplant and the complexity of her ventral hernia, she was transferred to [facility] for further management. Upon arrival however, her abdominal pain had resolved, and on exam had no tenderness to palpation. She had an NGT that was placed at [place], allowed to decompress overnight. She continued to pass flatus. Her NGT was removed the following day. She subsequently had a bowel movement and was advanced to a regular diet. She tolerated solid food well without further pain. Related to History of small bowel obstruction History of ventral a nd umbilical hernias.History of liver transplant at [facility], should follow up with them for evaluation of this hernia and any possible need for intervention now that it is clear she is not acutely obstructed.Will f/u w/ [facility] GI Related to Hernia [facility] liver clinic ( GI), Dr. 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 She will have labs drawn [id number] at [facility] [place] [facility]. Plan: Follow up in 1 year. Related to Liver transplanted BPs stableBeing foll owed by [facility] loan closer: Dr. Blackman. May consider switching cardiologists (to [facility] provider). No recent visits since PEE.-Currently taking clonidine, cardizem, and metoprolol Related to Hypertension, unspecified type History of CP docume nted in preenrollment records. Currently not following neurologist or is on any medications. Pt had reported in the past I no longer have CP, I outgrew it as a child . I do not want to have CP because I was made fun of as a kid . She does have intellectual disability evident upon exam though is A&Ox3 and can follow most of our conversation.Brother reports she had CP since , she used to see somebody for developmental disability. She never required braces . 09/2021 MOCA 20/30 Related to Cerebral palsy, unspecified type Hx of liver transpla nt, currently taking tacrolimus and mycophenolate prescribed by Dr. Calderon of [facility] liver transplant clinic. Related to Immunosuppressed status [facility] liver clinic ( GI), Dr. Vinton- last seen 09/2021 for s/p liver transplant for cruptogenic cirrosis 2001/breast cancer stage II-III of left breast s/p masectomy w/ completed chemo on tamoxifinCurrently on Prograf of 0.5mg bid though may consider decreasing to daily if her creatinine trends upward. She will have labs drawn [id number] at [facility]. Plan: Follow up in 1 year. Related to Liver transplanted 12/2021: GFR 49-Avoid nephrotoxic medications Related to Stage 3a chronic kidney disease Pt has been followin g general surgery Dr. Aaron [facility] s/p mastectomy. She has been following up every 6 months per office. Discussed w/ HCP she should keep this last appt and then she should not need to keep following up. Related to Hx of left mastectomy Currently takes mult ivitamin, tums, and vit D. 09/2021 PTH 161, calcium 8.7Ordered vit D, and calcium level. Related to Primary hyperparathyroidism 10/06/21: A1C 7.2Fol lowed by [facility] endocrinology. Last seen he is on numerous medications r/t DM2 that are being managed by [facility] endo: repaglinide, tresiba, and trulicityMost recent visit recommended a freestyle ev for better BS monitoring. This has been ordered. Related to Current use of insulin Continued to be foll ow by [facility] endocrinology primarily for diabetes. 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 09/2021 TSH 2.06Ordered TSHContinue levothyroxine Related to Autoimmune thyroiditis 10/06/21: TC 178, HD L 33, LDL 102, TG 320Currently taking lipitor Related to Hyperlipidemia, unspecified hyperlipidemia type BPs stableBeing foll owed by [facility] loan closer: Dr. Blackman. May consider switching cardiologists (to [facility] provider). No recent visits since PEE.-Currently taking clonidine, cardizem, and metoprolol Related to Hypertensive chronic kidney disease with stage 1 through stage 4 chronic kidney disease, or unspecified chronic kidney disease Pt has been followin g general surgery Dr. Aaron [facility] s/p mastectomy. She has been following up every 6 months per office. Discussed w/ HCP she should keep this last appt and then she should not need to keep following up. Related to Hx of left mastectomy Port in chest from oncology Rela markus to Port-A-Cath in place Per preenrollment re cords and family. [facility], [address]. Currently seeing Dr. Calderon.Dr. Calderon prescribes and refills: fish oil, mycophenolate mofetil, and tacrolimusHCP reports best way to contact is through his RN Pau- [phone] Related to Liver transplanted 10/06/21: A1C: 7.2 Related to Ty pe 2 diabetes mellitus without complication, unspecified whether fpc insulin use Hx of liver transpla nt, currently taking tacrolimus and mycophenolate prescribed by Dr. Calderon of [facility] liver transplant clinic. Related to Immunosuppressed status Asymptomatic.Current ly taking allopurinol. Related to Gout, unspecified cause, unspecified chronicity, unspecified site Bone density exams p erformed every other year per HCP. Next scan due in 2021. Currently taking vitamin D.Vit D level ordered. Related to Osteopenia, unspecified location History of CP docume nted in preenrollment records. Currently not following neurologist or is on any medications. Had previously received services from [facility].She ambulates w/ no assistive devices, appears to have steady gait. When asked about history pt reports I no longer have CP, I outgrew it as a child . I do not want to have CP because I was made fun of as a kid . She does have intellectual disability evident upon exam though is A&Ox3 and can follow most of our conversation.MOCA 20/30 Related to Cerebral palsy, unspecified type Uses compression sto cking, 1+ trace edema in guzman ankles. Currently on lasix. Related to Edema, unspecified type Follows [facility] endocrin ology.Currently takes multivitamin, tums, and vit D. Ordered vit D, PTH, and calcium level. Related to Primary hyperparathyroidism Bone density exams p erformed every other year per HCP. Next scan due in 2021. Currently taking vitamin D.Vit D level ordered. Related to Vitamin D deficiency Occurred w/ liver tr ansplant in 2000. Remained in ICU for several weeks per HCP where she had a trach placed. Now removed. Related to Hx of tracheostomy Per preenrollment re cords and family. [facility], 2000. Currently seeing Dr. Calderon.Dr. Calderon prescribes and refills: fish oil, mycophenolate mofetil, and tacrolimusHCP reports best way to contact is through his RN Pau- [phone] Related to Liver transplanted Left mastectomy in . Yearly mammograms. History of breast cancer scheduled for mammogram on 10/04/21-completed. Related to HX: breast cancer Left mastectomy perf ormed in 06/2021 per HCP and pt. Scar notable upon exam, no evidence of infection at surgical site. 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 Follows [facility] every year for full body scan. Discussed keeping appt that has already been scheduled in 10/2021 and then will f/u as needed. Pt and HCP agreeable to this plan. Related to Personal history of other malignant neoplasm of skin Followed by [facility] endo crinology. Referral made to [facility] endocrinology. Currently on levothyroxine: prescirbed by [facility] quality technician. 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 Referral made to [facility] endocrinology. Currently on levothyroxine: prescirbed by [facility] quality technician. Related to Autoimmune thyroiditis She is currently on eliquis and metoprolol for afib.Pt had afib during her chemotherapy tx per brother/HCP. He reported she no longer has had afib. RRR upon exam today. Cardiology appt on 10/11/2021 to determine the need for eliquis, holter monitor in place. Related to Cardiac arrhythmia, unspecified cardiac arrhythmia type Normal monofilliment exam. No loss of protection, no ulcers or deformities. Pt checks feet regularly. Followed by [facility] endocrinology. Referral made to [facility] endocrinology. She is on numerous medications r/t DM2 that are being managed by [facility] endo: repaglinide, tresiba, and trulicity Related to Type 2 diabetes mellitus without complication, unspecified whether salvage determiner insulin use Normal monofilliment exam. No loss of protection, no ulcers or deformities. Pt checks feet regularly. Followed by [facility] endocrinology. Referral made to [facility] endocrinology. She is on numerous medications r/t DM2 that are being managed by [facility] endo: repaglinide, tresiba, and trulicity Related to Current use of insulin BP stable today: 122 /74Being followed by [facility] loan closer: Dr. Blackman. May consider switching cardiologists (to [facility] provider) after medication changes are completed. He is currently changing her medication regimen. -Currently taking clonidine, cardizem, and metoprolol Related to Hypertension, unspecified type No history of having bacterial endocarditis. Does have standing order for amoxicillin 2000mg 1 hr before dental procedures. Related to SBE (subacute bacterial endocarditis) prophylaxis candidate Currently taking lip itor.Lipid panel ordered for PEE. Related to Hyperlipidemia, unspecified hyperlipidemia type Cardiology appt and holter monit or Related to Cardiac arrhythmia, unspecified cardiac arrhythmia type History of breast ca ncer scheduled for mammogram on 10/04 Related to HX: breast cancer Assessments Type Assessment Date No Information Goals Health Concern Goal Type Priority Status Date Seema is at risk for complications related to diabetes. Seema will not experience any medical complications or hospitalizations, related to diabetes. Patient Goal Discontinued Seema is at risk for aspiration due to oropharyngeal dysphagia. Seema will utilize safe swallowing strategies independently while tolerating regular solids with no signs or symptoms of dysphagia. Patient Goal Complete Seema is at risk for medical complications and hospitalization related to cardiac arrhythmia, diabetes, hx breast cancer, hx organ transplant, cerebral palsy, Seema will remain free of medical complications and have no hospitalizations through next review. Patient Goal Continued Seema has immunosuppression related to history of liver transplant. Seema will remain free of infection through next review. Patient Goal Continued Patient Care Teams Name Effective Dates (start - stop) Status Members No Information
[2025-01-15 15:55] LABS: Magnesium 1.7 mg/dL (1.6-2.6); Phosphorus 3.5 mg/dL (2.7-4.5)
[2025-01-15 16:01] LABS: Parathyroid Hormone Intact 148.4 pg/mL (8.7-77.1)
[2025-01-15 16:11] LABS: Vitamin D 25-OH Total 25.8 ng/mL (>30)
== END 2025-01-15 14:10 | disposition home or self-care (01) ==
LOC: HO.LAB 14:09
PROVIDERS: Visit Provider Internal Medicine
DX: N18.31 Chronic kidney disease, stage 3a (principal); Z94.4 Liver transplant status
CPT/HCPCS: 36415; 82306; 83735; 83970; 84100

== ENCOUNTER 2025-01-20 14:49 | Outpatient (REF) | payer OTHER, SELFPAY ==
[2025-01-20 15:55] LABS: Creatinine Urine 42.71 mg/dL; Microalbum/Creatinine Ratio Ur 4682.7 ug/mg cr (<30); Microalbumin Urine > 2000.0 mg/L
--- OUTSIDE RECORDS SUMMARY | 2025-01-20 18:36 | XMS_ITS | Encounter Summary ---
Author Organization [facility] Address [address] [place] [address] Care Team Providers Care Logistics Research Engineer Name Role Phone Mallorie Draper Primary Care Provider [phone] Encounter Details Date Type Department Care Team (Late st Contact Info) Description 08/29/2017 Transplant Conversio n Encounter [facility] Health Information Management [address] [place] [address] Provider, [facility] Social History Tobacco Use Types [...] Info) Description 03/03/2025 11:00 AM EDT Follow-Up [facility] Liver Transplant Services [address] [place] [address] Eveline Calderon MD [address] [place] [address] documented as of this encounter Visit Diagnoses Not on filedocumented in this encounter Additional Health Concerns Infection Onset Date Last Indicated Resolved Time COVID-19 - Confirmed infecti on Comment:[facility] 12/28/2020 12/28/2020 01/18/2021 3:47 PM EST R/O Respiratory Virus Infection 12/26/2022 3 12/26/2022 10:05 PM EST R/O Influenza 12/26/2022 12/26/2022 12/26/2022 10: 05 PM EST COVID-19 - Suspected infection 12/26/2022 12/26/2022 12/26/2022 10:05 PM EST VRE Enterococcus 12/26/2022 12/26/2022 documented as of this encounter Care Teams Logistics Research Engineer Relationship Specialty Start Date End Date Mallorie Draper [address] [place] [address] PCP - General Internal Medicine 01/21/24 documented as of this encounter
--- OUTSIDE RECORDS SUMMARY | 2025-01-20 18:36 | XMS_ITS | Clinical Summary ---
Author Organization Unknown Care Team Providers Care Compliance Spec Name Role Phone DEANNA PENA, MARTHA Unavailable Unavailable CHADWICK MAGAÑA, FABIÁN Unavailable Unavailable Payers Payer Name Policy Type Policy Number Effective Date Expira tion Date [facility] - [place] [id number] MEDICAID [facility] [id number] MEDICARE - [facility]/[place] - [place] [id number] Problems Condition Name Condition Details Condition Category [...] 05-07 00:00: 00 05-28 23:59 :00 No [id number] Per instruc tions 2 TIMES DAILY Per instructio ns 2 TIMES DAILY (route: subcutaneo us) Med Classific ation: Endocrine Lantus Solostar U-100 Insulin 100 unit/mL (3 mL) subcutaneou s pen 05-07 00:00: 05-21 00:00 :00 No [id number] Per instruc tions Per instructio ns (route: subcutaneo us) Med Classific ation: Endocrine repaglinide 1 mg tablet 05-07 00:00: 00 Yes [id number] 1 mg 3 TIMES DAILY 1 mg 3 TIMES DAILY (route: oral) Med Classific ation: Endocrine allopurinol 300 mg tablet 04-22 00:00: 00 Yes [id number] 300 mg DAILY 300 mg DAILY (route: oral) Med Classific ation: Gout and Hyperuric emia Therapy anastrozole 1 mg tablet 04-22 00:00: 00 Yes [id number] 1 mg DAILY 1 mg DAVID Y (route: oral) Med Classific ation: Antineopl astics atorvastati n 40 mg tablet 04-22 00:00: 00 Yes [id number] 40 mg DAILY 40 mg DAILY (route: oral) Med Classific ation: Cardiovas cular Therapy Agents Calcium Antacid 200 mg (as calcium carbonate 500 mg) chewable tablet 04-22 00:00: 00 Yes [id number] 2 tablet DAILY 2 tablet DAILY (route: oral) Med Classific ation: Gastroint estinal Therapy Agents diltiazem CD 180 mg capsule,ext ended release 24 hr 04-22 00:00: 00 Yes [id number] 180 mg DAILY 180 mg DAILY (route: oral) Med Classific ation: Cardiovas cular Therapy Agents Eliquis 5 mg tablet 04-22 00:00: 00 Yes [id number] 5 mg 2 TIMES DAILY 5 mg 2 TIMES DAILY (route: oral) Med Classific ation: Hematolog ical Agents levothyroxi ne 88 mcg tablet 04-22 00:00: 00 Yes [id number] 88 mcg DAILY 88 mcg DAILY (route: oral) Med Classific ation: Endocrine metoprolol tartrate 25 mg tablet 04-22 00:00: 00 Yes [id number] 25 mg DAILY 25 mg DAILY (route: oral) Med Classific ation: Cardiovas cular Therapy Agents mycophenola te mofetil 250 mg capsule 04-22 00:00: 00 Yes [id number] 250 mg 2 TIMES DAILY 250 mg 2 TIMES DAILY (route: oral) Med Classific ation: Immunosup pressive Agents tacrolimus 0.5 mg capsule, immediate-r elease 04-22 00:00: 00 Yes [id number] 0.5 mg 2 TIMES DAILY 0.5 mg 2 TIMES DAILY (route: oral) Med Classific ation: Immunosup pressive Agents ergocalcife rol (vitamin D2) 1,250 mcg (50,000 unit) capsule 04-22 00:00: 00 05-21 00:00 :00 No [id number] Per instruc tions Per instructio ns (route: oral) Med Classific ation: Electroly te Balance-N utritiona l Products repaglinide 0.5 mg tablet 05-21 00:00: 00 Yes [id number] 0.5 mg 2 TIMES DAILY 0.5 mg 2 TIMES DAILY (route: oral) Med Classific ation: Endocrine Trulicity 3 mg/0.5 mL subcutaneou s pen injector 05-21 00:00: 00 05-28 23:59 :00 No [id number] 3 mg WEEKLY 3 mg WEEKLY (route: subcutaneo us) Med Classific ation: Endocrine Vitamin D3 25 mcg (1,000 unit) capsule 05-21 00:00: 00 Yes [id number] 25 mcg DAILY 25 mcg DAILY (route: oral) Med Classific ation: Electroly te Balance-N utritiona l Products Lantus Solostar U-100 Insulin 100 unit/mL (3 mL) subcutaneou s pen 05-29 00:00: 00 01-14 23:59 :00 No [id number] 34 unit DAILY 34 unit DAILY (route: subcutaneo us) Med Classific ation: Endocrine Trulicity 4.5 mg/0.5 mL subcutaneou s pen injector 05-29 00:00: 00 Yes [id number] 4.5 mg WEEKLY 4.5 mg WEEKLY (route: subcutaneo us) Med Classific ation: Endocrine Lantus Solostar U-100 Insulin 100 unit/mL (3 mL) subcutaneou s pen 01-14 00:00: 00 Yes [id number] 37 unit DAILY 37 unit DAILY (route: subcutaneo us) Med Classific ation: Endocrine Plan of Treatment Planned Activity Planned Date [...] AWARENESS FOR SAFETY AND WILL NOTIFY CLINICAL GEOGRAPHIC INFORMATION SYSTEMS DIRECTOR AND PHYSICIAN/PROVIDER WITH ANY CHANGE IN CONDITION. [code = SKILLED NURSE WILL MAINTAIN SITUATIONAL AWARENESS FOR SAFETY AND WILL NOTIFY CLINICAL GEOGRAPHIC INFORMATION SYSTEMS DIRECTOR AND PHYSICIAN/PROVIDER WITH ANY CHANGE IN CONDITION.] Future Scheduled Test SKILLED NU RSE FOR MEDICATION ADMINISTRATION PER MEDICATION LIST TO BE PERFORMED DAILY (FREQUENCY). [code = SKILLED NURSE FOR MEDICATION ADMINISTRATION PER MEDICATION LIST TO BE PERFORMED DAILY (FREQUENCY).] Future Scheduled Test SKILLED NU RSE FOR ADMINISTRATION AND TEACHING OF PRESCRIBED INJECTION THERAPY FOR LANTUS INSULIN(SPECIFY NAME OF INJECTABLE MED) [code = SKILLED NURSE FOR ADMINISTRATION AND TEACHING OF PRESCRIBED INJECTION THERAPY FOR LANTUS INSULIN(SPECIFY NAME OF INJECTABLE MED)] Future Scheduled Test SKILLED NU RSE TO [...] COMMUNITY RESOURCES AND PSYCHOSOCIAL SUPPORT SERVICES.] Goal 2024-07-16 Patient Goal - TO MANAGE INS ULIN Goal 2024-09-15 Patient Goal - TO MANAGE INS ULIN Goal 2024-11-12 Patient Goal - TO MANAGE INS ULIN Goal 2025-01-13 Patient Goal - TO MANAGE INS ULIN Goal Patient Goal - TO MANAGE INS ULIN Goal Provider Goal - A PLAN OF CARE WILL BE ESTABLISHED THAT MEETS PATIENT'S INTERMEDIATE NEEDS AND INCLUDES PATIENT GOAL FOR HOME [...] PERIOD. Goal Provider Goal - PATIENT WILL RECEIVE (SPECIFY NAME OF INJECTABLE MED) ORDERED. PATIENT/CAREGIVER WILL VERBALIZE/DEMONSTRATE KNOWLEDGE OF INJECTION THERAPY BY THE END OF THE CERTIFICATION PERIOD. Goal Provider Goal - PSYCHOSOCIAL NEEDS WILL BE IDENTIFIED AND PLAN IMPLEMENTED TO MINIMIZE RISK THROUGHOUT CERTIFICATION PERIOD. Progress Notes Progress Notes <paragraph>[Visit Date: 2024 by FABIÁN GENAO RN]:</paragraph><paragraph>LANTUS INSULIN ADMINISTERED 37 UNITS. PT UNABLE TO CONSISTENTLY PERFORM OWN INJECTION DUE TO COGNITIVE DEFICITS</paragraph> <paragraph>[Visit Date: 2024 by FABIÁN GENAO RN]:</paragraph><paragraph>FBS 164, POST 268. LANTUS 37 UNITS ADMINISTERED</paragraph> <paragraph>[Visit Date: 2024 by LISA STRONG LPN]:</paragraph><paragraph>ALERT AND ORIENTED</paragraph> <paragraph>[Visit Date: 2024 by FABIÁN GENAO RN]:</paragraph><paragraph>PT FORGOT TO TEST BLOOD SUGAR BEFORE BREAKFAST, POST BLOOD SUGAR 274. LANTUS 37 UNITS ADMINISTERED.</paragraph> <paragraph>[Visit Date: 2024 by FABIÁN GENAO RN]:</paragraph><paragraph>THIS [...] HAVE SUPPORTIVE FAMILY WHO LIVE [facility] STAFF A CAREGIVER AVAILABLE. PATIENT DOES NOT UTILIZE DME. PATIENT RESOURCES INCLUDE REGULAR COMPANIONS FROM THE [employer] PATIENT REQUIRES INTERMEDIATE VISITS DAILY FOR FOR INSULIN ADMINISTRATION, MEDICATION EDUCATION. PT'S LANTUS INSULIN RECENTLY INCREASED TO 37 UNITS DAILY IN AM WITH SOME EFFECTIVENESS NOTED.</paragraph> Encounters Start Date/Time End Date/Time Encounter Type Admission Type Attending [facility] Care Department Encounter ID Discharge Date Discharge Status Discharge Condition Discharge Reason Percent Goals Met 2024-05-21 00:00:00 2025-03-16 00:00:00 Outpatient ALFREDORTFABIÁN MARTINEZ [facility] ED [id number]
--- OUTSIDE RECORDS SUMMARY | 2025-01-20 18:37 | XMS_ITS | Clinical Summary ---
Author Organization [facility] Address [address] [place] [address] Care Team Providers Care Cooler Service Supervisor Name Role Phone Mallorie Draper Primary Care Provider [phone] Allergies Active Allergy Reactions Criticality Noted Date [...] a day. 09/12/20 Active FreeStyle Ev 2 Aragon [facility] 07/13/20 22 Active calcium carbonate 400 mg calcium (1,000 mg) tablet,chewable Chew and swallow 1,000 mg by mouth. 05/17/20 Active OneTouch Verio Flex meter [facility] 01/25/20 Active omega-3 acid ethyl esters (LOVAZA) [...] DAILY. 56 capsule 01/09/20 25 Active omega 7-zwr-zez-fish oil 300-1,000 mg capsule capsule @@ TAKE [...] 56 capsule 12/12/19 25 025 Discontinued omega 5-ngs-row-fish oil 300-1,000 mg capsule capsule @@ TAKE [...] nasal swab MRSA PCR. -ICU glycemic protocol. -PLANNING ASSOCIATE evaluation, if ok to take po diet [...] Type Department Care Team Description 01/08/2025 Refill [facility] [address] [place] [address] Eveline Calderon MD Liver replaced by transplant (HCC) 12/11/2024 Refill [facility] [address] [place] [address] Eveline Calderon MD Liver replaced by transplant (HCC) 11/13/2024 Refill [facility] [address] [place] [address] Eveline Calderon MD Liver replaced by transplant ([facility]) from Last 3 Months Immunizations Immunization Administration Dates Next Due Covid-19, Pfizer, mRNA, Otoe valent, PF 30 mcg/0.3 mL dose (for [...] 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 Not on [...] Description 03/03/2025 11:00 AM EDT Follow-Up [facility] [address] [place] [address] Eveline Calderon MD [address] [place] [address] Health Maintenance Due Date Last Done Comments [...] 02/16/2015, Additional history exists Phosphorus 12/29/2023 12/29/2022, 020 12/2022, 12/27/2022, Additional history exists COVID-19 Vaccine [...] Tdap) 03/24/2029 03/24/2019, 03/24/2019 Mammogram Discontinued 03/06/2017, 04/04/2017, 02/24/2016, Additional history exists Pneumococcal Vaccine: 50+ Years Completed 11/25/2019, 02/14/2016, 02/14/2016, Additional history exists Zoster Vaccines Completed 03/10/2024, 10/08/2023 Influenza Vaccine Completed 08/19/2024, , 08/29/2022, Additional history exists Hepatitis B Vaccines Aged Out No long er eligible based on patient's age to complete this topic Medical Devices Implanted Type Area Crab Fisher Device Identifier Shelf Expiration Date Model / Serial / Lot Mesh Ventral Hernia Soft Square [id number] - [id number] Implanted:Qty: 1 on 11/29/2022 by Pita Clark MD MPH at [facility] Mesh N/A: Abdomen [employer] 05/23/2027 [id number] / / [id number] Description:Verified by RK, NC and JM. Procedures * Due to [place] [employer] law, this organization might not be sharing [...] to Health Maintenance Results * Due to [place] state law, this organization might not be sharing negative HIV tests. * (ABNORMAL) CBC Auto Differential (03/06/2024 3:44 PM EDT) WBC 11.7(H) 3.8 - 10.8 10*3/uL 03/06/2024 5:32 PM EDT [facility] RBC 4.26 3.80 - 5.10 10*6/uL 03/06/2024 5:32 PM EDT [facility] Hemoglobin 12.9 11.7 - 15.5 g/dL 03/06/2024 5:32 PM EDT [facility] Hematocrit 38.9 35.0 - 45.0 % 03/06/2024 5:32 PM EDT [facility] MCV 91.3 80.0 - 100.0 fL 03/06/2024 5:32 PM EDT [facility] MCH 30.3 27.0 - 33.0 pg 03/06/2024 5:32 PM EDT [facility] MCHC 33.2 32.0 - 36.0 g/dL 03/06/2024 5:32 PM EDT [facility] RDW 15.6(H) 11.0 - 15.0 % 03/06/2024 5:32 PM EDT [facility] Platelets 389 140 - 400 10*3/uL 03/06/2024 5:32 PM EDT [facility] MPV 10.2 7.5 - 12.5 fL 03/06/2024 5:32 PM EDT [facility] nRBC % 0.3 /100 WBCs 03/06/2024 5:32 PM EDT [facility] nRBC # 0.04(H) <0.01 10*3/uL 03/06/2024 5:32 PM EDT [facility] Blood Structure of peripheral vein / Unknown Venipuncture / Unknown 03/06/2024 3:44 PM EDT 03/06/2024 3:57 PM EDT us Eveline Calderon MD LAB BLOOD ORDERABLES Final Resul t [facility] [address] [place] [address], * (ABNORMAL) Comprehensive Metabolic Panel (03/06/2024 3:44 PM EDT) NA 139 135 - 145 mmol/L 03/06/2024 4:39 PM EDT [facility] K 4.1 3.5 - 5.3 mmol/L 03/06/2024 4:39 PM EDT [facility] Cl 104 97 - 110 mmol/L 03/06/2024 4:39 PM EDT [facility] CO2 25 24 - 32 mmol/L 03/06/2024 4:39 PM EDT [facility] Anion Gap 10 5 - 15 03/06/2024 4:39 PM EDT [facility] Glucose 184(H) 70 - 99 mg/dL 03/06/2024 4:39 PM EDT [facility] Creatinine 1.47(H) 0.50 - 1.20 mg/dL 03/06/2024 4:39 PM EDT [facility] Calcium 8.8 8.7 - 10.7 mg/dL 03/06/2024 4:39 PM EDT [facility] Total Protein 6.4 6.0 - 8.0 g/dL 03/06/2024 4:39 PM EDT [facility] Albumin 3.3(L) 3.5 - 4.8 g/dL 03/06/2024 4:39 PM EDT [facility] Bilirubin, Total 0.4 0.3 - 1.2 mg/dL 03/06/2024 4:39 PM EDT [facility] Alkaline Phosphatase 56 30 - 115 U/L 03/06/2024 4:39 PM EDT [facility] AST 17 10 - 40 U/L 03/06/2024 4:39 PM EDT [facility] ALT 13 10 - 40 U/L 03/06/2024 4:39 PM EDT [facility] BUN 31(H) 7 - 23 mg/dL 03/06/2024 4:39 PM EDT [facility] eGFR 38(L) >=60 mL/min/1 .73m2 03/06/2024 4:39 PM EDT [facility] Comment:The estimated glomer ular [...] ORDERABLES Final Resul t Performing Organization Address [facility] Co de Phone Number [facility] [address] [place] [address], [place] * (ABNORMAL) Phosphorus (12/29/2022 5:16 AM EST) Phosphorus 2.2(L) 2.5 - 4.5 mg/dL 12/29/2022 6:12 AM EST [facility] Blood Structure of peripheral vein / Unknown Venipuncture / Unknown 12/29/2022 5:16 AM EST 12/29/2022 5:38 AM EST Maycol Flores MD LAB BLOOD ORDERABLES Final Resu lt Performing Organization Address City/[facility] Co de Phone Number [facility] [address] [place] [address], [place] * (ABNORMAL) Hemoglobin A1c (05/10/2017 4:19 PM EDT) Hemoglobin A1C 6.8(H) <5.7 [facility] Comment: UNITS OF MEASURE: % of [...] for children. eAG (MG/DL) 148 () (calc) [facility] eAG (MMOL/L) 8.2 () (calc) [facility] 05/10/2017 4:19 PM EDT 05/10/2017 5:43 PM EDT Eveline Calderon MD LAB BLOOD ORDERABLES Final Resul t Performing Organization Address City/[facility]/ZIP Co de Phone Number [address], [place] [address], [place] [phone] * Vitamin D, 25-Hydroxy, Total, Immunoassay (07/04/2012 11:33 AM EDT) Vitamin D 25 Oh 41 30 - 100 ng/mL [facility] Comment: Vitamin D Status 25-OH Vitamin D Deficiency: <10 ng/mL Insufficiency: 10-30 ng/mL Sufficiency: 30-100 ng/mL Toxicity: >100 ng/mL 07/04/2012 11:3 3 AM EDT 07/04/2012 12:01 PM EDT us Ricardo Mejia MD LAB BLOOD ORDERABLES Final Resul t [facility] [address] [place] [address], * PTH, Intact (without Calcium) (07/04/2012 11:33 AM EDT) Parathyroid Intact 60 12 - 65 pg/mL [facility] 07/04/2012 11:3 3 AM EDT 07/04/2012 12:01 PM EDT us Ricardo Mejia MD LAB BLOOD ORDERABLES Final Resul t [facility] [address] [place] [address], from Last 3 Months or Most Recently Relevant to Health Maintenance 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
--- OUTSIDE RECORDS SUMMARY | 2025-01-20 18:37 | XMS_ITS | Continuity of Care Document ---
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 TO BE CHANGED BY ALF. - Active Vitamin D3 25 mcg (1,000 [...] Active pen needle, diabetic 31 gauge x 02/08 use w/ BG checks - Active Prescr ibed by [facility] anastrozole 1 mg tablet take 1 [...] w/ BG check - Active Prescribed by [facility] Futuro Anti-Embolism Stockings 18-30mmhg apply to legs in the morning and take off in the evening - Active Astagraf XL 0.5 mg capsule,extended release take 1 capsule by oral route 2 times every day in the morning on an empty stomach, 1 hour before or 2 hours after a meal 0.5 MG - Active Prescribed by Dr. Kvng Jameson Ev 2 [place] use to read blood sugar QID - Active alcohol swabs use when checking BG levels - Active Advance Directives Directive Yes / No Effective Date File Name No Information Encounters Encounter Description Practice Location Reason(s) For Visit Diagnoses Date Provider [facility], [address], [place], [place], [id number], [place] tel:[phone] [place] Acute Visit (chief complaint) No Information 5 Pravin Aqib. [address] [place], [place], [id number], [place]. tel:[phone] [facility], [address], [place], [place], [id number], [place] tel:[phone] [place] No Information 5 Pravin Aqib. [address] [place], [place], [id number], [place]. tel:[phone] [facility], [address], [place], [place], [id number], [place] tel:[phone] [place] No Information 5 Pravin Aqib. [address] [place], [place], [id number], [place]. tel:[phone] [facility], [address], [place], [place], [id number], [place] tel:[phone] [place] No Information 5 Pravin Aqib. [address] [place], [place], [id number], [place]. tel:[phone] [facility], [address], [place], [place], [address], [place] tel:[phone] [place] Follow-up (chief complaint) No Information 5 Pravin Aqib. [address] [place], [place], [id number], [place]. tel:[phone] [facility], [address], [place], [place], [address], [place] tel:[phone] [place] No Information 5 Pravin Aqib. [address] [place], [place], [id number], [place]. tel:[phone] [facility], [address] [facility], [place], [place], [id number], [place] tel:[phone] [place] Encounter for rehabilitation evaluation 4 Gerald Kearnsah Beth. [address] [place], [place], [id number]. tel:[phone] [facility], [address] [facility], [place], [place], [id number], [place] tel:[phone] [place] No Information 4 Pravin Aqib. [address] [place], [place], [id number], [place]. tel:[phone] [facility], [address] [facility], [place], [place], [id number], [place] tel:[phone] [place] No Information 0 4 Pravin Aqib. [address] [place], [place], [id number], [place]. tel:[phone] [facility], [address] [facility], [place], [place], [address], [place] tel:[phone] [place] No Information 4 Pravin Aqib. [address] [place], [place], [address], [place]. tel:[phone] [facility], [address] [facility], [place], [place], [id number], [place] tel:[phone] [facility] Acute Visit (chief complaint) Viral URI with cough 4 Pravin Aqib. [address] [place], [place], [address], [place]. tel:[phone] [facility], [address] [facility], [place], [place], [id number], [place] tel:[phone] Manohar Semi-Annual (chief complaint) Disorder of the skin and subcutaneous tissue, unspecifiedEncounter for general adult medical examination without abnormal findingsMixed hyperlipidemiaType 2 diabetes mellitus with hyperglycemia, with long-term current use of insulinLong term (current) use of insulinType 2 diabetes mellitus with diabetic peripheral angiopathy without gangrene, with long-term current use of insulinType 2 diabetes mellitus with diabetic polyneuropathy, with long-term current use of insulinType 2 diabetes mellitus with stage 3a chronic kidney disease, with long-term current use of insulinChronic kidney disease, stage 3aHypertensive chronic kidney disease with stage 1 through stage 4 chronic kidney disease, or unspecified chronic kidney disease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Primary hyperparathyroidismInv asive ductal carcinoma of breast, female, leftInfiltrating ductal carcinoma of breast, rightImmunosuppressed statusLiver transplantedCerebral palsy, unspecified typeSecondary hypercoagulable stateAtrial fibrillation, unspecified type 4 Pravin Aqib. [address] [place], [place], [id number], [place]. tel:[phone] [facility], [address] [place] [address], [id number], [place] tel:[phone] [place] Encounter for nutritional assessment 4 Normile Karen. [address] [place], [place], [id number], [place]. tel:[phone] [facility], [address] [facility], [place], [place], [id number], [place] tel:[phone] [place] Encounter for rehabilitation evaluation 4 Gerald Yeh. [address] [employer] [place], [place], [id number]. tel:[phone] [facility], [address] [facility], [place], [place], [address], [place] tel:[phone] [place] Encounter for rehabilitation evaluation 4 Josh Hayes. [address] [facility], [place], [place], [address], [place]. tel:[phone] [facility], [address], [place], [place], [address], [place] tel:[phone] [facility] Acute Visit (chief complaint) HypomagnesemiaFacial skin lesion Oct-0 8 4 Pravin Aqib. [address] [place], [place], [id number], [place]. tel:[phone] [facility], [address], [place], [place], [address], [place] tel:[phone] [place] No Information Sep-2 - 4 Pravin Aqib. [address] [place], [place], [id number], [place]. tel:[phone] [facility], [address], [place], [place], [id number], [place] tel:[phone] [place] No Information Sep-2 4 Tarun Steinberg. [address], [place], [place], [address], [place]. tel:[phone] [facility], [address], [place], [place], [id number], [place] tel:[phone] [place] Follow-up (chief complaint) Hypomagnesemia Sep-1 4 Aileen Gregg. [address] [place], [place], [id number], [place]. tel:[phone] [facility], [address], [place], [place], [id number], [place] tel:[phone] [place] Follow-up (chief complaint) Acquired absence of left breast and nippleLymphedema, not elsewhere classified Sep-0 4 Aileen Baileyca. [address], [place], [place], [address], [place]. tel:[phone] [facility], [address], [place], [place], [address], [place] tel:[phone] [place] medication (chief complaint) Hypomagnesemia 4 Bhagavatula Ujjwala. [address] [place], [place], [address], [place]. tel:[phone] [facility], [address], [place], [place], [address], [place] tel:[phone] [place] No Information 4 Aileen Baileyca. [address], [place], [place], [id number], [place]. tel:[phone] [facility], [address], [place], [place], [id number], [place] tel:[phone] [place] No Information 4 Bhagavatula Ujjwala. [address] [facility] [address], [place], [place], [id number], [place]. tel:[phone] [facility], [address], [place], [place], [address], [place] tel:[phone] [place] Type 2 diabetes mellitus with hyperglycemia, with long-term current use of insulinLong term (current) use of insulin 4 Phong Garrison. [address], [place], [place], [address], [place]. tel:[phone] [facility], [address] [facility], [place], [place], [id number], [place] tel:[phone] [place] Encounter for rehabilitation evaluation 4 Josh Hayes. [address] [facility] [address] [address], [place], [place], [id number], [place]. tel:[phone] [facility], [address] [facility], [place], [place], [address], [place] tel:[phone] C[place] No Information 4 Os Roxy. [address] [place], [id number], [place]. tel:[phone] [facility], [address] [facility], [place], [place], [id number], [place] tel:[phone] [place] No Information 4 Ferguson Annalise. [address] [place], [place], [address], [place]. tel:[phone] [facility], [address] [facility], [place], [place], [address], [place] tel:[phone] [place] Encounter for nutritional assessmentOther obesity Feb- 4 Normile Karen. [address] [place], [place], [id number], [place]. tel:[phone] [facility], [address] [facility], [place], [place], [address], [place] tel:[phone] C[place] No Information 4 Os Roxy. [address] [place], [id number], [place]. tel:[phone] [facility], [address] [facility], [place], [place], [id number], [place] tel:[phone] [place] Semi-Annual (chief complaint) Encounter for general adult medical examination without abnormal findingsCardiac arrhythmia, unspecified cardiac arrhythmia typeHyperlipidemia, unspecified hyperlipidemia typeType 2 diabetes mellitus with diabetic chronic kidney disease, unspecified CKD stage, unspecified whether long term care administrator insulin useCurrent use of insulinType 2 diabetes mellitus with diabetic peripheral angiopathy without gangrene, unspecified whether long term care administrator insulin useType 2 diabetes mellitus with diabetic polyneuropathy, unspecified whether alf insulin use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Autoimmune thyroiditisPrimary hyperparathyroidismLiv er transplantedHypertensi ve chronic kidney disease with stage 1 through stage 4 chronic kidney disease, or unspecified chronic kidney diseaseStage 3a chronic kidney diseaseOsteopenia, unspecified locationCerebral palsy, unspecified typeEdema, unspecified typeInvasive ductal carcinoma of breast, female, leftInfiltrating ductal carcinoma of breast, rightImmunosuppressed status Feb- 4 Os Roxy. [address] [place], [place], [id number], [place]. tel:[phone] [facility], [address], [place], [place], [address], [place] tel:[phone] C[place] No Information Mar-2 4 Os Roxy. [address] [place], [place], [id number], [place]. tel:[phone] [facility], [address], [place], [place], [address], [place] tel:[phone] [place] Follow-up (chief complaint) Cerebral palsy, unspecified typeMalignant neoplasm of right female breast, unspecified estrogen receptor status, unspecified site of breast Mar-2 4 Os Roxy. [address] [place], [place], [id number], [place]. tel:[phone] [facility], [address] [facility], [place], [place], [id number], [place] tel:[phone] [place] Hypertension, unspecified type Mar-2 0 4 Os Roxy. [address] [place], [place], [address], [place]. tel:[phone] [facility], [address] [facility], [place], [place], [address], [place] tel:[phone] [facility] Admit (chief complaint) Type 2 diabetes mellitus with diabetic chronic kidney disease, unspecified CKD stage, unspecified whether long term care administrator insulin useStage 3a chronic kidney diseaseEdema, unspecified typeImmunosuppressed statusHypertension, unspecified typeMalignant neoplasm of right female breast, unspecified estrogen receptor status, unspecified site of breast Mar-1 4 Os Roxy. [address] [place], [place], [address], [place]. tel:[phone] [facility], [address], [place], [place], [address], [place] tel:[phone] [place] Malignant neoplasm o f unspecified site of unspecified female breast 4 Munir Retana. [address] [facility] [address], [place], [place], [address], [place]. tel:[phone] [facility], [address], [place], [place], [address], [place] tel:[phone] [place] Sebaceous cyst 4 Phyllis Woody. [address], [place], [place], [address], [place]. tel:[phone] [facility], [address], [place], [place], [address], [place] tel:[phone] [place] Malignant neoplasm o f unspecified site of unspecified female breast 4 Os Roxy. [address] [facility] [address], [place], [place], [address], [place]. tel:[phone] [facility], [address], [place], [place], [address], [place] tel:[phone] [place] Malignant neoplasm o f unspecified site of left female breast 4 Tarun Steinberg. [address], [place], [place], [address], [place]. tel:[phone] [facility], [address], [place], [place], [address], [place] tel:[phone] [place] Edema, unspecified type 3 Aileen Marysol. [address], [place], [place], [address], [place]. tel:[phone] [facility], [address], [place], [place], [address], [place] tel:[phone] [place] No Information 3 Os Roxy. [address], [place], [place], [address], [place]. tel:[phone] [facility], [address], [place], [place], [address], [place] tel:[phone] [place] Encounter for nutritional assessmentClass 1 obesity with serious comorbidity and body mass index (BMI) of 33.0 to 33.9 in adult, unspecified obesity typeBody mass index [BMI] 33.0-33.9, adult Sep- 3 Luis F Jones. [address] [facility] [place] [place], [address], [place]. tel:[phone] [facility], [address], [place], [place], [address], [place] tel:[phone] [place] Malignant neoplasm o f unspecified site of left female breast 3 Munir Retana. [address] [facility], [place], [place], [id number], [place]. tel:[phone] [facility], [address], [place], [place], [address], [place] tel:[phone] [place] Semi-Annual (chief complaint) Type 2 diabetes mellitus with stage 2 chronic kidney disease, with long-term current use of insulinLong term (current) use of insulin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Autoimmune thyroiditisPrimary hyperparathyroidismHyp ertensive renal disease, stage 1 through stage 4 or unspecified chronic kidney diseaseLiver transplantedImmunosupp ressed statusCerebral palsy, unspecified type 3 Aileen Gregg. [address] [facility] [place] [place], [address], [place]. tel:[phone] [facility], [address], [place], [place], [id number], [place] tel:[phone] [place] Encounter for rehabilitation evaluation 3 Davian River. [address] [facility] [address], [place], [address]. tel:[phone] [facility], [address], [place], [place], [address], [place] tel:[phone] [place] Encounter for rehabilitation evaluation 3 Gerald Kearnsah Beth. 101 [facility], [place], [place], [id number]. tel:[phone] [facility], [address] [facility], [place], [place], [address], [place] tel:[phone] [place] Type 2 diabetes mellitus with diabetic peripheral angiopathy without gangrene, with long-term current use of insulinLong term (current) use of insulin 3 Luis Alberto Turner. [address] [place], [place], [id number], [place]. tel:[phone] [facility], [address] [address], [place], [place], [address], [place] tel:[phone] C[place] No Information 3 Os Roxy. [address] [place], [place], [id number], [place]. tel:[phone] [facility], [address] [facility], [place], [place], [address], [place] tel:[phone] [place] F/U (chief complaint)S ebaceous Cyst (chief complaint) Hyperlipidemia, unspecified hyperlipidemia typeCurrent use of insulinChronic kidney disease due to diabetes mellitusStage 3a chronic kidney diseaseHypertensive renal disease, stage 1 through stage 4 or unspecified chronic kidney diseaseCerebral palsy, unspecified typeInvasive ductal carcinoma of breast, female, leftChronic gout without tophus, unspecified cause, unspecified siteImmunosuppressed status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Autoimmune thyroiditisSebaceous cyst 3 Ephraim Gomez. [address] [place], [address], [place]. tel:[phone] [facility], [address] [facility] [address], [place], [place], [address], [place] tel:[phone] [place] Encounter for nutritional assessmentClass 1 obesity without serious comorbidity with body mass index (BMI) of 32.0 to 32.9 in adult, unspecified obesity typeBody mass index [BMI] 32.0-32.9, adult March- 3 Normile Karen. [address] [place], [place], [id number], [place]. tel:[phone] [facility], [address] [facility], [place], [place], [id number], [place] tel:[phone] C[place] No Information 3 Os Roxy. [address] [place], [place], [address], [place]. tel:[phone] [facility], [address] [facility], [place], [place], [address], [place] tel:[phone] [place] Semi-Annual (chief complaint) Cardiac arrhythmia, unspecified cardiac arrhythmia typeCerebral palsy, unspecified typeOsteopenia, unspecified locationPure hypercholesterolemiaCu rrent use of insulinStage 3a chronic kidney diseaseType 2 diabetes mellitus with diabetic chronic kidney disease, unspecified CKD stage, unspecified whether long term care administrator insulin useType 2 diabetes mellitus with diabetic peripheral angiopathy without gangrene, unspecified whether alf insulin useType 2 diabetes, controlled, with neuropathyHypothyroidi sm due to Quinton's thyroiditisAutoimmune thyroiditisPrimary hyperparathyroidismHyp ertensive renal disease, stage 1 through stage 4 or unspecified chronic kidney diseaseInvasive ductal carcinoma of breast, female, leftLiver transplantedImmunosupp ressed status 3 Os Roxy. [address] [place], [place], [id number], [place]. tel:[phone] [facility], [address] [facility], [place], [place], [address], [place] tel:[phone] C[place] No Information 3 Os Roxy. [address] [place], [place], [id number], [place]. tel:[phone] [facility], [address] [facility], [place], [place], [address], [place] tel:[phone] [place] Oropharyngeal dysphagia Mar-2 8202 3 Caselden Kristin. [address], [place], [place], [address], [place]. tel:[phone] [facility], [address], [place], [place], [address], [place] tel:[phone] [place] Oropharyngeal dysphagia Mar-2 0-202 3 Caseldadalid Kristin. [address], [place], [place], [address], [place]. tel:[phone] [facility], [address], [place], [place], [address], [place] tel:[phone] [place] Oropharyngeal dysphagia Mar-1 3 Casesaad Kristin. [address], [place], [place], [address], [place]. tel:[phone] [facility], [address], [place], [place], [address], [place] tel:[phone] [place] No Information Mar-0 8- 3 Os Roxy. [address] [place], [address], [place]. tel:[phone] [facility], [address], [place], [place], [address], [place] tel:[phone] [place] Oropharyngeal dysphagia Mar-0 2-202 3 Caseldadalid Kristin. [address] [place], [address], [place]. tel:[phone] [facility], [address], [place], [place], [address], [place] tel:[phone] [place] Oropharyngeal dysphagia Feb-1 3 Caselden Kristin. [address], [place], [place], [address], [place]. tel:[phone] [facility], [address], [place], [place], [address], [place] tel:[phone] [place] Dysphagia, unspecifi ed typeOther dysphagia 0 3 Alysa Foster. [address] [place], [place], [address], [place]. tel:[phone] [facility], [address], [place], [place], [address], [place] tel:[phone] [place] Non-recurrent abdominal hernia without obstruction or gangrene, unspecified hernia type 0 3 Os Roxy. [address] [place], [place], [address], [place]. tel:[phone] [facility], [address] [facility], [place], [place], [id number], [place] tel:[phone] [facility] Evaluation (chief complaint)P ost Hospital Evaluation (chief complaint) Cerebral palsy, unspecified typeLiver transplantedStage 3a chronic kidney disease 0 3 Os Roxy. [address] [place], [place], [id number], [place]. tel:[phone] [facility], [address] [facility], [place], [place], [address], [place] tel:[phone] [place] No Information 3 Luis Alberto Johnny. [address] [place], [place], [address], [place]. tel:[phone] [facility], [address], [place], [place], [address], [place] tel:[phone] [place] Dysphagia, unspecifi ed type 3 Luis Alberto Johnny. [address] [place], [place], [address], [place]. tel:[phone] [facility], [address], [place], [place], [address], [place] tel:[phone] [place] Difficulty in walkin g, not elsewhere classified 3 Davian Perico. [address] [place], [address]. tel:[phone] [facility], [address], [place], [place], [address], [place] tel:[phone] [facility] DC (chief complaint) Type 2 diabetes mellitus with diabetic chronic kidney disease, unspecified CKD stage, unspecified whether long term care administrator insulin useStage 3a chronic kidney diseaseLiver transplantedAbdominal hernia without obstruction and without gangrene, recurrence not specified, unspecified hernia typeImmunosuppressed statusCerebral palsy, unspecified type 3 Deep Morales. [address] [place], [place], [address], [place]. tel:[phone] [facility], [address], [place], [place], [address], [place] tel:[phone] [facility] ADMIT (chief complaint) Non-recurrent abdominal hernia with obstruction without gangrene, unspecified hernia typeLiver transplantedImmunosupp ressed statusType 2 diabetes mellitus with diabetic chronic kidney disease, unspecified CKD stage, unspecified whether long term care administrator insulin useCardiac arrhythmia, unspecified cardiac arrhythmia typeLeukocytosis, unspecified type 3 Deep Morales. [address] [place], [place], [address], [place]. tel:[phone] [facility], [address], [place], [place], [address], [place] tel:[phone] [place] No Information 3 Os Roxy. [address], [place], [place], [address], [place]. tel:[phone] [facility], [address], [place], [place], [address], [place] tel:[phone] [place] Encounter for rehabilitation evaluation 2 Davian River. [address], [place], [address]. tel:[phone] [facility], [address], [place], [place], [address], [place] tel:[phone] [place] Encounter for rehabilitation evaluationAlteration in performance of activities of daily livingMild cognitive impairment, so stated 2 Gerald Beltran Mallorie Yeh. [address] [place], [place], [address]. tel:[phone] [facility], [address], [place], [place], [address], [place] tel:[phone] [facility] Encounter for nutritional assessmentExcessive carbohydrate intakeDeficiency of other specified nutrient elementsOther obesity 2 Normile Karen. [address], [place], [place], [address], [place]. tel:[phone] [facility], [address] [facility], [place], [place], [address], [place] tel:[phone] [place] Hypertensive chronic kidney disease with stage 1 through stage 4 chronic kidney disease, or unspecified chronic kidney diseaseHyperlipidemia, unspecified hyperlipidemia typeType 2 diabetes mellitus with diabetic chronic kidney disease, unspecified CKD stage, unspecified whether long term care administrator insulin useCurrent use of insulin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Autoimmune thyroiditisPrimary hyperparathyroidismSta ge 3a chronic kidney diseaseImmunosuppresse d statusLiver transplantedCerebral palsy, unspecified typeHX: breast cancerDiabetes mellitus with peripheral vascular diseaseType 2 diabetes, controlled, with neuropathy 2 Os Roxy. [address], [place], [place], [id number], [place]. tel:[phone] [facility], [address] [facility] [facility], [place], [place], [id number], [place] tel:[phone] Cisne No Information [address], [place], [place], [id number], [place]. tel:[phone] [facility], [address] [facility], [place], [place], [id number], [place] tel:[phone] Cisne PHV (chief complaint) HerniaLiver transplantedHistory of small bowel obstruction Jul- 2 Os Roxy. [address] [place], [place], [id number], [place]. tel:[phone] [facility], [address], [place], [place], [id number], [place] tel:[phone] Cis[place] Liver transplantedHernia Jul- 2 Luis Alberto Johnny. [address] [place], [place], [id number], [place]. tel:[phone] [facility], [address] [facility], [place], [place], [id number], [place] tel:[phone] Cisne No Information 2 [address] [place], [place], [id number], [place]. tel:[phone] [facility], [address] [facility], [place], [place], [id number], [place] tel:[phone] Cisne No Information 2 [address] [place], [place], [id number], [place]. tel:[phone] [facility], [address] [facility], [place], [place], [id number], [place] tel:[phone] Cis[place] Hypertension, unspecified type 2 Luis Alberto Johnny. [address] [place], [place], [id number], [place]. tel:[phone] [facility], [address] [place] [address], [id number], [place] tel:[phone] Cisne Encounter for rehabilitation evaluationAlteration in performance of activities of daily livingMild cognitive impairment, so stated 2 Gerald Yeh. [address] [facility], [place], [id number]. tel:[phone] [facility], [address], [place], [place], [id number], [place] tel:[phone] Cisne Encounter for nutritional assessmentAbnormal weight gain 2 Normile Karen. [address] [place], [place], [id number], [place]. tel:[phone] [facility], [address] [facility], [place], [place], [id number], [place] tel:[phone] Cisne Semiannual (chief complaint) Hypertensive chronic kidney disease with stage 1 through stage 4 chronic kidney disease, or unspecified chronic kidney diseaseHyperlipidemia, unspecified hyperlipidemia typeCurrent use of insulin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Autoimmune thyroiditisPrimary hyperparathyroidismLiv er transplantedStage 3a chronic kidney diseaseHx of left mastectomyImmunosuppre ssed statusCerebral palsy, unspecified type 2 [address]. [address] [facility] [place], [id number], [place]. tel:[phone] [facility], [address] [facility] [facility], [place], [place], [id number], [place] tel:[phone] Cis[place] Port-A-Cath in place Hx of left mastectomy 2 Os Roxy. [address] [place], [place], [id number], [place]. tel:[phone] [facility], [address] [facility] [facility], [place], [place], [id number], [place] tel:[phone] Cisne Liver transplanted 2 [address]oxy. [address] [place], [place], [id number], [place]. tel:[phone] [facility], [address], [place], [place], [id number], [place] tel:[phone] Cisne No Information 1 Luis Alberto Turner. [address] [place], [place], [id number], [place]. tel:[phone] [facility], [address], [place], [place], [id number], [place] tel:[phone] Cisne Type 2 diabetes mellitus without complication, unspecified whether alf insulin use 1 Os Roxy. [address] [place], [id number], [place]. tel:[phone] [facility], [address] [facility], [place], [place], [id number], [place] tel:[phone] Cisne Encounter for nutritional assessmentDiabetes education, encounter for 1 Sara Pool. [address], [place], [address]. tel:[phone] [facility], [address] [facility], [place], [place], [id number], [place] tel:[phone] Cisne Encounter for rehabilitation evaluation 1 [place] [place]. [address], [place], [address]. tel:[phone] [facility], [address] [facility] [address] [facility], [place], [place], [id number], [place] tel:[phone] Cisne Encounter for rehabilitation evaluationMild cognitive impairment, so statedAlteration in performance of activities of daily living 1 Gerald Yeh. [address] [place], [place], [id number]. tel:[phone] [facility], [address] [facility], [place], [place], [id number], [place] tel:[phone] Cisne PEE (chief complaint) Encounter for general adult medical examination without abnormal findingsEncounter for screening for respiratory tuberculosisHypertensi on, unspecified typeSBE (subacute bacterial endocarditis) prophylaxis candidateCardiac arrhythmia, unspecified cardiac arrhythmia typeHyperlipidemia, unspecified hyperlipidemia typeType 2 diabetes mellitus without complication, unspecified whether alf insulin useCurrent use of insulin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Autoimmune thyroiditisPrimary hyperparathyroidismVit campo D deficiencyHx of tracheostomyLiver transplantedHX: breast cancerHx of left mastectomyPersonal history of other malignant neoplasm of skinImmunosuppressed statusGout, unspecified cause, unspecified chronicity, unspecified siteOsteopenia, unspecified locationCerebral palsy, unspecified typeEdema, unspecified type 1 [address] Roxy. [address] [place], [place], [id number], [place]. tel:[phone] [facility], [address] [place] [address], [id number], [place] tel:[phone] Cisne HX: breast cancerCardiac arrhythmia, unspecified cardiac arrhythmia type 1 Sara Corine. [address] [place], [address]. tel:[phone] [facility], [address] [facility], [place], [place], [id number], [place] tel:[phone] Cisne No Information 1 Luis Alberto Turner. [address] [place], [place], [id number], [place]. tel:[phone] [facility], [address], [place], [place], [id number], [place] tel:[phone] Cisne Intake (chief complaint) Encounter for general adult medical examination without abnormal findingsEncounter for screening for respiratory tuberculosis 1 Luis Alberto Turner. [address] [place], [place], [id number], [place]. tel:[phone] Family History Family Member Type Diagnosis Age [...] er Payers Payer name Insurance type Covered alliance party ID Authoriza ruddyniurka(s) [facility] [employer] 16 [id number] [employer] [facility] [employer] 16 [id number] [employer] [facility] 16 [id number] [employer] [facility] 16 [id number] [employer] [facility] 16 [id number] [employer] [facility] 16 [id number] Social History Type Description Quantity Date Captured Comments Alcohol Use Details Unknown Caffeine Use Details Unknown Tobacco Use Status No Information Smoking Status No Information Sex Female Vital Signs Date / Time: Height Weight BMI Pulse Rate Blood Pressure Temperature Respiratory Rate Body Surface Area Head Circumference Head Circ. Percentile Wt./John. Percentile BMI percentile Pulse Ox Inhaled Ox 10:22 AM 61.00 in 83.370 kg (183.80 lbs) 34.7 3 kg/m eter (2) 88 /min 164/100 mm[Hg] 97.90 F 18 /min 96 % Feb-25 -2025 11:57 AM 176/88 mm[Hg] Chief Complaint And Reason For Visit From encounter dated '01/20/2025 10:21'. Acute Visit (chief complaint). Description: Seema is a 69 years old female who was seen for an acutevisit at the [facility]. Plan Of Treatment Date Type Action Status [...] Ordered: Referrals: Cardiology Appointment date/timeframe: 11/28/2021 ordered Appointment Seema David BOOKED Future Order: Lab Order LAURA Strong ([id number]), Sent on: Sent Future Order: Lab Order BASIC DE TABOLIC PANEL ([id number]), Sent on: Sent Future Order: Lab Order LAURA Strong ([id number]), Ordered on: Ordered Future Order: Lab Order BASIC DE TABOLIC PANEL ([id number]), Ordered on: Ordered Future Order: Radiology Order Zheng ne density study (by DEXA); axial skeleton (e.g., hips, pelvis, spine) ([id number]), Ordered on: Ordered Future Order: Radiology Order Ma mmogram (Screen); Bilat, 2-view study of each breast, incl computer-aided detection when performed ([id number]), Ordered on: Ordered History Of Present Illness Encounter Date Complaint History Of Prese nt Illness Acute Visit Seema is a 69 yea rs old female who was seen for an acute visit at the [facility]. Follow-up Encounter create d in error Acute [...] had been seen in her room at [facility].There have been no ER visits, hospital admissions, or SNF stays in the last 6 months. Diagnoses Reviewed.-No new diagnosesReferrals reviewed.Consults: w/in the last year-Dental: no dentures in place, referral made-Podiatry: cristy Gonzalez q3 months-Vision: Dr. Leiva; order in place-[facility] [facility] [place]-no changes made-Hem/Onc: [facility] 02/22/24-post right masectomy; med changes made; DEXA ordered-Surgery: [facility] 02/21/24-post right masectomy-Dermatology: referral in for f/u on sebacious cyst scheduled for 11/13/24-Liver transplant GI: [facility] liver clinic Dr. Jung 02/05/24: have [...] with pharmacy they will deliver this today. Comments: Seema i s a 68 year old female who has been enrolled in the [facility] program since 09/2021 and is being seen for their semiannual exam.Patient had been seen in her room at [facility].Diagnoses Reviewed.-No new diagnosesReferrals reviewed.Consults: w/in the last year-Dental: no dentures in place, referral made-Podiatry: sees Carlos q3 months-Vision: Dr. Leiva; order in place-Endocrinology[place] [facility] 09/25/23-no changes made-Hem/Onc: [facility] 02/22/24-post right masectomy; med changes made; DEXA ordered-Surgery: [facility] 02/21/24-post right masectomy-Dermatology: referral in for f/u on sebacious cyst scheduled for 11/13/24-Liver transplant GI: [facility] liver clinic Dr. Jung 02/05/24: have [...] All questions were answered at this time. Semi-Annual Comments: Seema clemons s a 68 year old female who is being seen today for a SNF admission to [facility].Ppt currently lives at [facility]: 02/05/24-02/08/24CC[facility]Course complicated by hypotension, MARIA ESTHER, uncontrolled hyperglycemia and subsequently uncontrolled blood pressure which resolved. Discharged to rehab for further assist w/ ALEX drain management and insulin. Right breast cancers/p right mastectomy and sentinel lymph node biopsy on tory of L breast cancer treated with simple mastectomy and chemotherapy, now with right breast cancer.SNF: [facility] 02/08/24-02/14/24ospital medications reviewed. Updated EMR.SNF summery: no significant medical information during SNF stay. Ppt required SNF for drain and insulin management. F/u visits:-PCP -Nan Gusman (surgeon)Today:-Ppt reports she feels well and is adjusting back at [facility]. No concerns at this time. Incision site w/o concerns for infection. ALEX drains had been emptied by [facility] prior to my arrival per ppt. BP 132/92. Stable at this time- would continue current medication regimen. Follow-up SNF Admit Seema is a 68 yea r old female who is being seen today for a SNF admission to [facility].Ppt currently lives at [facility]: 02/05/24-02/08/24CC: [facility]Course complicated by hypotension, MARIA ESTHER, uncontrolled hyperglycemia and subsequently uncontrolled blood pressure which resolved. Discharged to rehab for further assist w/ ALEX drain management and insulin. Right breast cancers/p right mastectomy and sentinel lymph node biopsy on of L breast cancer treated with simple mastectomy and chemotherapy, now with Rt breast cancer.PLAN: -Ice to axilla, no ice to chest incision- Continue tamoxifen daily, -Monitor ALEX outputs- Incentive spirometryoutpatient follow up with surgery would be arranged by surgery service. would be discharged with ALEX drain.SNF: [facility] 02/08/24-TB02/08/24: Hospital medications reviewed.Updated EMR.Started:-Tamoxifen 20mg daily -Multivitamin 1 chew bxnco-Bqavx-7 Polyunsaturated Fatty Acids 1000mg daily Changed:-Insulin Lispro [...] measuring about 100cc eachPlan:-Can return back to [facility] after ALEX drains removed and ppt is medically stable-Monitor weekly labsReviewed plan w/ nursing at [facility]. Semi-Annual Patient is a 68 year old female who has been enrolled in the [facility] program since 09/2021 and is being seen for their semi annual exam. She lives at [facility] and comes to the [facility] site as needed. Medications reviewed and reconciled. [...] Reviewed.-No new diagnosesReferrals reviewed.Consults:-Liver transplant physician (GI): [facility] liver clinic, Dr. Jung- last seen 09/2022 for s/p liver transplant for cruptogenic cirrhosis. Missing meds since the spring, urgent referral to GI.-Gem Setter: 10/2022- [facility]- no changes-Oncology: [facility] Dr. Coto- Continue tamoxifen for a total of at least 5 years. Mammogram due in September (oncology schedule). 2000/breast cancer stage II-III of left breast s/p masectomy w/ completed chemo on tamoxifin-continuing to take at this time for prophylaxis. -Endocrinology: [facility] endocrine- currently on numerous medications r/t DM. Last seen 2Recommended increase the 75/25 in AM to 28 units.-Dermatology: [facility] (previously doing yearly skin checks)Vision: Dr. Leiva, sees regularly.Dental: no dentures in place, referral made. Podiatry: [facility] podiatry.Screenings: Continuing to screen-Mammogram: 10/10/2022, yearly [...] GI referral. She has restarted her medications. Comments: Being seen in follow up as she is starting with a new [facility] service and she needs provider visit. She lives at an [facility].Requires [facility] services for insulin administration. Her FSBS has been running in the mid 100s. She uses a CGM and self monitors. Comments: Left p osterior popliteal space with dry open sebaceous cystNo periwound erythemaJane brought it up as something that has been bothering her. She has not pain in the area. F/U Sebaceous Cyst Semi-Annual Comments: Seema clemons s a 67 year old female who has been enrolled in the [facility] program since 09/2021 and is being seen for their semiannual exam.Patient had been seen in her room at [facility].Diagnoses Reviewed.-No new diagnosesReferrals reviewed.Consults:-Liver transplant physician (GI): [facility] liver clinic, Dr. Jung- last seen 09/2022 for s/p liver transplant for cruptogenic cirrosis 2000/breast cancer stage II-III of left breast s/p masectomy w/ completed chemo on tamoxifin-continuing to take at this time for prophylaxis. Follow up in 1 year.-Gem Setter: 10/2022- [facility]- no changes-Oncology: [facility] [place]. Coto- Continue tamoxifen for a total of at least 5 years. Mammogram due in September (oncology schedule). Return in 6 months for f/u.-Endocrinology: [facility] endocrine- currently on numerous medications r/t DM. Last seen ecommended increase the 75/25 in AM to 28 units.-Dermatology: [facility] (previously doing yearly skin checks)Vision: Dr. Leiva, sees regularly.Dental: no dentures in place, referral made. Podiatry: [facility] podiatry.Screenings: Continuing to screen-Mammogram: 10/10/2022, yearly [...] from your healthcare team? to stay healthy Post Hospital Evaluation Seema is a 67 year old female who is being seen today for a PHV. [facility] 12/26/22-12/29/22Dx: MARIA ESTHER and UTI-Prior to admission lico was hypotensive and labs were ordered showing a GFR 14 and creat of 3.51. Lico is a liver transplant ppt (2000) and has been following Dr. Calderon at [facility]. Discussed lab findings and they advised to send to [facility]. Lico did have a recent hernia repair in November at [facility] with complications including hemmorhagic shock and was treated for aspiration pneumonia. MARIA ESTHER was thought to be ATN in the setting of recent adverse reaction to zosyn. Ppt received IVF where creat improved to 1.5 upon discharge. Started on cipro IV on 12/27 culture negative. Discharged home to [facility].Med changes:-d/c'd clonidine -d/c'd lasix-d/c'd lisinopril-d/c'd metoprolol succinate-started metoprolol tartrate 25mg BID-resume cellcept (prescribed by Dr. Molinaday:-Ppt reports feeling better . Negative ROS. No complaints at this time. BP stable 124/82.Plan: -order CBC and BMP for in 1 week-med changes updated-appt with Dr. Calderon on 01/04/23 Post Hospital Evaluation [facility] SEEMA DAVID [facility] SUMMARY Patient encounter date 12/20/22DC date 12/21/22[facility] on 11/29 for robotic repair of [...] in the transplant clinic. --MED CHANGES @ [facility]Cellcept HELDPrograf 0.5mg BID continued Zestril 5mg QD [...] and dc order placed in chart APPOINTMENTS01/04/23 [facility] liver transplant [id number]/[id number] 98.4HR 8602 96ROSNo N V F Cno [...] edema or drainage. SNF ADMIT SEEMA DAVID [facility] ADMITHPIfrom [facility] to [facility] on 11/29 for robotic repair of [...] the transplant clinic. MED CHANGES--Added:Cipro 500mg BID [id number] 100mg BID v0z--Biosvez:Cellcept HELDPrograf 0.5mg BID --DCAmoxTresibaDCINKA024/82RR 16T 99, recheck 97.8HR 86 palp02 96%ROSNo N V F Cno CP SOBNo ABD PAIN diarrheaNo c/o pain whatsoever(+)BM(+)VOID(+)flatusPEGEN age appearing female NAD nontoxic appearingPSYCH very pleasant and cooperative with exam alert and orientedHEART rrr (+)s1s2 LUNG ctabABD midline incision CDI with rené, ALEX draine x2 with scant serosangEXT no edema erythema calf painSKIN no rash lesions or erythema Comments: Seema clemons s a 66yo female resented to [facility] ED with less than 1 day of abdominal pain, nausea, and two episodes of emesis with concern for high-grade SBO at the level of her ventral hernia. She was subsequently transferred to [facility] d/t her history of liver transplant and the complexity of her ventral hernia.Upon arrival to [facility] her abdominal pain had resolved, and on exam had no tenderness to palpation, non-peritonitic. NGT was placed at [facility], decompressed overnight. Passing flatus. Also had a UA positive for infection. 1 dose of ceftriaxone and immunosuppressive medication held for a day. Tolerating the advancement in her diet. Had a BM. Deemed stable for discharge. Med changes: clonidine 0.2mg (previously 0.3mg)Today: Ppt appears comfortable has no problems and is "all better now . ROS negative.Plan: family requesting a follow up with [facility] GI as pt had been following (order in place)-Chuck (brother) reports [facility] appt is for 09/19/22 at 9:30a. No other concerns at this time. PHV Comments: Seema rogers a 66 year old female who has been enrolled in the [facility]ACE program since 09/2021 and is being seen for their semiannual exam.Patient had been seen in her room at [facility].There have been no hospitalizations, SNF admission and/or ER visits in the last six months.CC: no concerns reported from pt nor brother/HCP Chuck.Diagnoses Reviewed.-No new diagnosesConsults:-Liver transplant physician (GI): [facility] liver clinic, Dr. Jung- last seen 09/2021 for s/p liver transplant for cruptogenic cirrosis 2000/breast cancer stage II-III of left breast s/p masectomy w/ completed chemo on tamoxifin-continuing to take at this time for prophylaxis. Follow up in 1 year (09/2022).-Gem Setter: [facility] [place]. Blackman- Will consider changing over to [facility] practices once they determine the need for eliquis as they have been monitoring for some time. -Oncology: [facility] [place]. Coto- Discussed w/ pt, would like to keep as they have her currently on Tamoxifen-Endocrinology: [facility] endocrine- currently on numerous medications r/t DM. Last seen 02/10/22. Recommended starting a freestyle ev which has been ordered for better BS monitoring. -Dermatology: [facility]- had been following yearly for skin survalience s/p basal cell carcinoma. Had discussed keeping their upcoming appt in October and would then see [facility] derm as needed- no appt in chartVision: Dr. Leiva, sees regularly.Dental: no dentures in place, referral made. Podiatry: [facility] podiatry.Screenings: Continuing to screen-Mammogram: 10/04/21, yearly mammograms.-Colonoscopy:2016, next due in 10 years (2025)-Bone density: last in 2019, scheduled every other year (due 2021)4 Ms:Mentation: Oriented and able to follow conversation. Little understanding of medical history d/t cognitive deficit. Invoked. -Orientation: A&Ox3-MOCA: 09/2021: Medications:-Medications reviewed.-Changes: NoMobility:-Ambulates: Independent-Falls: none reportedWMM:-Advance Directives reviewed: presumed full code. Brother will be getting form in the mail.-HCP: Invoked. HCP/Brother Chuck-What is your goal for care? What would you like from your healthcare team? to stay healthy Semiannual Comments: Rodolfo south is a 66 year old female who is being seen for their post enrollment exam.She currently is a resident at [facility]. Patient and brother/HCP, Chuck, have no concerns at this time. Diagnoses reviewed.Medications reviewed.Advance Directives discussed- pt and family is unsure at this time, would like to talk to all family members before final decision. Conversation started. -Liver transplant physician: [facility] liver clinic, Dr. Jung- sees regularly. -Gem Setter: [facility] [place]. Blackman- currently pt is on a holter monitor, order department supervisor determining if she should remain on eliquis. She is scheduled to see him 10/11/21. Will consider changing over to [facility] practices once they determine the need for eliquis as they have been monitoring for some time. -Oncology: [facility] [place]. Coto- Discussed w/ pt, would like to keep as they have her currently on Tamoxifen-Endocrinology: [facility] endocrine- currently on numerous medications r/t DM. Will put out a referral to [facility] endo. -Dermatology: [facility]- had been following yearly for skin survalience s/p basal cell carcinoma. Discussed keeping their upcoming appt in October and would then see [facility] derm as needed. Vision: Dr. Leiva, sees regularly.Dental: no dentures in place, referral made. Podiatry: will be transitioning to [facility] podiatry.Mammogram: 10/04/21, yearly mammograms.Bone density: last in 2019, scheduled every other year (due 2021)Colonoscopy: 2015, next due in 10 years (2025)WMM: Being able to care for self at current functional level. PEE Intake Very pleasant wo man, accompanied by her [id number], brother Chuck and transplant case manager from [facility]. The patient apparently had intake in February however decision was made to delay proceeding due to living circumstances/roommate. The roommate has unfortunately moved out due to illness and the patient is now at the head of the waiting list for [facility] assisted living.We regrettably have virtually no medical records. There are a number of notes/lists that were printed out from the [facility] system however, no PCP records nor records from any of the subspecialists that she sees (vipin). Interestingly, the family had no awareness of [...] dysphagia. Hearing is fairly good. She sees social work specialist, the exact extent of any vision impairment [...] at the very least:Liver transplant physician at [facility] (Dr. Calderon)Indicated that the laboratory tech (Dr. Carlos) is in networkDr. Faizan Leiva, her social work specialist is in networkI explained that if needed oncology service (likely needed as she is on maintenance tamoxifen), endocrinology (very complicated regimen), GI, surgery, cardiology would likely be transitioned to [facility] practice. I explained that this helps maintain continuity of care and allows us access to records. I indicated that based it is our preferred hospital and that we strongly encourage its use somewhat negating any benefit of continuity with previous providers as they do not go to [facility]. I did not specifically address the data processing auditor. They are aware that there is a data processing auditor that goes to [facility] although I am unclear if it someone we are affiliated with.Medication, which is extensive, was updated via the list that the brother provided.Problem list was updated to the best of my ability based upon the limited information available to us. Suggestion that there was a bone density done in 2019. I cannot explicitly know why she is seeing a laboratory tech. The order department supervisor seems to surround the issue of the arrhythmia, again presumed atrial fibrillation. The role of the monitoring analyst is unclear. The general surgeon performed the [...] living assumes management of her medications via [facility] Instructions Date Instruction Additional Infor hetal Patient [...] ongoing Cont inues to follow up with [facility]- Dr Olson continue to monitor [...] 3a Patient with Type 2 DM and CKDCurrently stableWill continue to monitor Related to Type 2 diabetes mellitus with stage 3a chronic kidney disease, with long-term current use of insulin Patient with Type 2 DM and peripheral [...] next visitWill continue to monitor Related to [facility] (current) use of insulin Patient with mixed [...] URI as multiple other participants at the [facility] have been sick with similar symptomsSymptomatic managementEncouraged [...] monthsscheduling daily Mg replacement8.9.24critical lab1.4 today at [id number] daily replacement sent recheck labs sunday Related to Hypomagnesemia critical lab1.4 toda y at [id number] daily replacement sent recheck labs sunday Related [...] I suspect they will be). Related to intermediate card tender (current) use of insulin Followed by hem/oncP [...] months. - I will obtain records from [facility]. It is likely that she would be [...] months. - I will obtain records from [facility]. It is likely that she would be [...] unspecified location Humulog mix 75-25 an d trulicityFollows endocrine01/29/24: A1C 8.2Abnormal monofilimentDaily feet checks Related to Type 2 diabetes mellitus with diabetic polyneuropathy, unspecified whether alf insulin use Continued to be foll ow by [facility] endocrinology primarily for diabetes. 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 08/2023: TSH w/ reflex 3.08Ordered TSHContinue levothyroxine Related to Autoimmune thyroiditis Currently takes mult ivitamin, tums, and vit D. 08/2023 calcium 8.81/2021 PTH 129Ordered vit D, and calcium level.Currently followed by endocrine primarily for diabetes.-No changes in regards to hyperpartathyroidism Related to Primary hyperparathyroidism Prograf ongoing [facility] s liver clinic (GI), Dr. Mcgee had f/u [...] kidney disease, unspecified CKD stage, unspecified whether alf insulin use Continue Humulog mix 75-25 Continue Trulicity Follows endocrineBG between 100-200 Related to Current use of insulin Followed by endocrin eContinue insulin01/29/24: A1C 8.2Decreased pulses. Shiny hairless guzman LE. -Continue statin Related to Type 2 diabetes mellitus with diabetic peripheral angiopathy without gangrene, unspecified whether long term care administrator insulin use 10/02/23 Total chol 2 67, HDL 42, TRI 467, Ratio 6.4, Non HDL 225, GLU 176-Continue LipitorLipid panel for semiMay consider increasing lipitor Related to Hyperlipidemia, unspecified hyperlipidemia type She is currently on eliquis and metoprolol for afib.Pt had afib during her chemotherapy tx per brother/HCP. [facility] had assessed ppt on 05/17/22 where they were going to continue the eliquis and metoprolol until they further review ppts holter and ECHO from [facility].No longer following cardiology regularlyToday: RRR Related to Cardiac arrhythmia, unspecified cardiac arrhythmia type Ppt reports she feel s well and is adjusting back at [facility]. No concerns at this time. Incision site [...] never required braces . Cognitive delay evident; wveqlou78/2022 MOCA MOCA Related to Cerebral palsy, unspecified type Had period of hypote nsion which subsequently turned into hypertension. Would like to monitor BPs and if BPs remain elevated may implement their recommendations of adding clonidine 0.2mg daily Related to Hypertension, unspecified type 02/08/24 [facility] complicated by hypotension, MARIA ESTHER, [...] discharged with ALEX drain.Plan:-Can return back to [facility] after ALEX drains removed and ppt is [...] kidney disease, unspecified CKD stage, unspecified whether alf insulin use GFR -02/05 33-02/07 60 Avoid [...] never required braces . Cognitive delay evident; rndazvg76/2022 MOCA /2023 MOCA Related to Cerebral palsy, unspecified type Prograf ongoing Cell cept held d/t leurkocytosis after surgery[facility]- had f/u appt on 01/04/2023 for s/p liver transplant for cruptogenic cirrosis 2000/breast cancer stage II-III of left breast s/p masectomy w/ tamoxifinPlan: Follow up THIAGO Related to Liver transplanted Diltiazem 24 ER 180m g dailyMetoprololControlledeGFR 60s, stage 2 currently, has historically been stage 3a Related to Hypertensive renal disease, stage 1 through stage 4 or unspecified chronic kidney disease labs today, continue synthroid R elated to [...] long-term current use of insulin 03/23/23 A1c 6.312/ A1c 8.510/ A1C 9.5redraw today, cont insulin and trulicity Related to intermediate card tender (current) use of insulin Left popliteal space Dry open sebaceous cystWound Care: Wash and dry area. Gently pack with Iodoform and followed by roland alignate and tegaderm dressingMay showerKeep dressing on and re evaluate on SundayIf dressing falls off not need to recover. Related to Sebaceous cyst 11/2022: TSH w/ refle x to T4: 1.39-Continue levothyroxineContinued to be follow by [facility] endocrinology primarily for diabetes. 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 Related to Autoimmune thyroiditis Ppt is immunosupress ed from tamoxifen as well as s/p liver transplant on cellcept and prograf. Oncology note: 02/2023: Continue tamoxifen for a total of at least 5 years. Mammogram due in September (oncology schedule). Return in 6 months for f/u. Related to Immunosuppressed status Asymptomatic.Current ly taking allopurinol. Related to Chronic gout without tophus, unspecified cause, unspecified site History of CP docume nted in preenrollment records. Currently not following neurologist or is on any medications. Brother reports she had CP since , she used to see somebody for developmental disability. She never required braces . Cognitive delay evident; nrtvyby31/2022 MOCA Related to Cerebral palsy, unspecified type [...] unspecified chronic kidney disease 03/23/23 Creatinine/G FR 0.93/67[facility] 12/26/22-12/29/22Dx: MARIA ESTHER and UTI-Prior to admission [...] due to diabetes mellitus 03/23/23 Chol/Trig/HD L/LDL 157/241/41/834/: Ratio 5.8, TC 167, HDL 29, LDL [...] d/t leurkocytosis after surgery- [facility]- had [...] left BPs stable Being fol lowed by [facility] order department supervisor: Dr. Blackman and was switched to [facility] order department supervisor. -Currently taking clonidine, cardizem, lisinopril, and metoprolol [...] ordered for semiContinued to be follow by [facility] endocrinology primarily for diabetes. 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 Related to Autoimmune thyroiditis A1C 10/2022: 8.5Rece nt increase in insulinDecreased pulses. Shiny hairless guzman LE. -Continue statin Related to Type 2 diabetes mellitus with diabetic peripheral angiopathy without gangrene, unspecified whether alf insulin use Dose increased per e ndocrine.75/25 insulin: 28 units in the AM 20 units in PMFollowed by [facility] endocrinology. She is on numerous medications r/t DM2 that are being managed by [facility] endo: repaglinide, tresiba, and pexorupefC6D 8.5Recent hospitalization 12/2022 showed labs were ordered showing a GFR 14 and creat of 3.51. MARIA ESTHER was thought to be ATN in the setting of recent adverse reaction to zosyn. Ppt received IVF where creat improved to 1.5 upon discharge. Related to Type 2 diabetes mellitus with diabetic chronic kidney disease, unspecified CKD stage, unspecified whether long term care administrator insulin use [facility] -12/29/22Dx: MARIA ESTHER and UTI-Prior to admission [...] 3a chronic kidney disease A1C 8.5Followed by [facility] endocrinology. She is on numerous medications r/t DM2 that are being managed by [facility] endo: repaglinide, tresiba, and trulicityMost recent visit [...] afib during her chemotherapy tx per brother/HCP. [facility] had assessed ppt on 05/17/22 where they were going to continue the eliquis and metoprolol until they further review ppts holter and ECHO from [facility]. May consider d/c'ing in the future. Today: RRR Related to Cardiac arrhythmia, unspecified cardiac arrhythmia type History of CP docume nted in preenrollment records. Currently not following neurologist or is on any medications. Brother reports she had CP since , she used to see somebody for developmental disability. She never required braces . Cognitive delay evident; nzforix63/2022 MOCA Related to Cerebral palsy, unspecified type s/p surgical repaira bd incision CDI with staplesJP dremoved abd soft NT good bowel sounds (+)flauts/BMfollowup with surgeon in next 1-2 weeks no pain use pain PRNabd exam otherwise benign Related to Non-recurrent abdominal hernia without obstruction or gangrene, unspecified hernia type [facility] -12/29/22Dx: MARIA ESTHER and UTI-Prior to admission [...] never required braces . Cognitive delay evident; eqpvkgr24/2021 MOCA 20/30 Related to Cerebral palsy, unspecified [...] gangrene, recurrence not specified, unspecified hernia type cont lispo, trulicit ymetformin was added to med [facility] at [facility] not on prior to hospital per PCP Recordsppt will followup with PCP after dcmed regimen can be reassessed at that time Related to Type 2 diabetes mellitus with diabetic chronic kidney disease, unspecified CKD stage, unspecified whether long term care administrator insulin use prograf ongoing cell cept held d/t leurkocytosis after surgeryppt to f/u with xplant team appt 01/04/23 Related to Liver transplanted CKD: GFR- 39trend la bs routinely avoid nephrotoxins Related to Stage 3a chronic kidney disease dc summary reports l eukocytosis on dischargelevel [...] kidney disease, unspecified CKD stage, unspecified whether long term care administrator insulin use see 'liver transplanted' Related to [...] never required braces . 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 Related to Primary hyperparathyroidism Hx of liver transpla nt, currently taking tacrolimus and mycophenolate prescribed by Dr. Calderon of [facility] liver transplant clinic. Referral made for f/u. Related to Immunosuppressed status [facility] liver clinic ( GI), Dr. 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 She will have labs drawn [id number] at [facility]. Plan: Follow up in 1 year- order in place Related to Liver transplanted CKD: GFR- 39-Avoid n ephrotoxic medications Related to Stage 3a chronic kidney disease 03/24/22: Ratio 5.8, TC 167, HDL 29, LDL 98, TG 298-Increased lipitor based upon the above resultsLipid panel ordered for semi Related to Hyperlipidemia, unspecified hyperlipidemia type Endocrine: 08/23/22: Humalog 75/25 increased from 20 units bid to 24units in the AM and 20units in PM. Ppt is also on repaglinide and [id number] 02/2022: 8.5; reassess for semiCKD: GFR- 39-Avoid nephrotoxic medications Related to Type 2 diabetes mellitus with diabetic chronic kidney disease, unspecified CKD stage, unspecified whether alf insulin use Endocrine: 08/23/22: Humalog 75/25 increased [...] thyroiditis BPs stable 126/82Bei ng followed by [facility] order department supervisor: Dr. Blackman and was switched to [facility] order department supervisor. -Currently taking clonidine, cardizem, lisinopril, and metoprolol Related to Hypertensive chronic kidney disease with stage 1 through stage 4 chronic kidney disease, or unspecified chronic kidney disease History of ventral a nd umbilical hernias.History of liver transplant at [facility], should follow up with them for evaluation of this hernia and any possible need for intervention now that it is clear she is not acutely obstructed. Related to Hernia [facility] liver clinic ( GI), Dr. 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 She will have labs drawn [id number] at [facility]. Plan: Follow up in 1 year. Related to Liver transplanted Presented to [facility] h less than 1 day of abdominal pain, nausea, and two episodes of emesis with radiographic concern for high-grade small bowel obstruction at the level of her ventral hernia. Given her history of liver transplant and the complexity of her ventral hernia, she was transferred to [facility] for further management. Upon arrival however, her abdominal pain had resolved, and on exam had no tenderness to palpation. She had an NGT that was placed at [place], allowed to decompress overnight. She continued to pass flatus. Her NGT was removed the following day. She subsequently had a bowel movement and was advanced to a regular diet. She tolerated solid food well without further pain. Related to History of small bowel obstruction History of ventral a nd umbilical hernias.History of liver transplant at [facility], should follow up with them for evaluation of this hernia and any possible need for intervention now that it is clear she is not acutely obstructed.Will f/u w/ [facility] Related to Hernia [facility] liver clinic ( GI), Dr. 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 She will have labs drawn [id number] at [facility]. Plan: Follow up in 1 year. Related to Liver transplanted BPs stableBeing foll owed by [facility] order department supervisor: Dr. Blackman. May consider switching cardiologists (to [facility] provider). No recent visits since [facility].-Currently [...] and mycophenolate prescribed by Dr. Calderon of [facility] liver transplant clinic. Related to Immunosuppressed status Pt has been followin g general surgery Dr. Aaron [facility] s/p mastectomy. She has been following up every 6 months per office. Discussed w/ HCP she should keep this last appt and then she should not need to keep following up. Related to Hx of left mastectomy 12/2021: GFR 49-Avoid nephrotoxic medications Related to Stage 3a chronic kidney disease [facility] liver clinic ( GI), Dr. 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 She will have labs drawn [id number] at [facility]. Plan: Follow up in 1 year. Related to Liver transplanted Currently takes mult ivitamin, tums, and vit D. 09/2021 PTH 161, calcium 8.7Ordered vit D, and calcium level. Related to Primary hyperparathyroidism Continued to be foll ow by [facility] endocrinology primarily for diabetes. 09/2021 TSH 2.06Ordered TSHContinue levothyroxine Related to Autoimmune thyroiditis Continued to be foll ow by [facility] endocrinology primarily for diabetes. 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 Last seen he is on numerous medications r/t DM2 that are being managed by [facility] endo: repaglinide, tresiba, and trulicityMost recent visit recommended a freestyle ev for better BS monitoring. This has been ordered. Related to Current use of insulin 10/06/21: TC 178, HD L 33, LDL 102, TG 320Currently taking lipitor Related to Hyperlipidemia, unspecified hyperlipidemia type BPs stableBeing foll owed by [facility] order department supervisor: Dr. Blackman. May consider switching cardiologists (to [facility] provider). No recent visits since [facility].-Currently taking clonidine, cardizem, and metoprolol Related to Hypertensive chronic kidney disease with stage 1 through stage 4 chronic kidney disease, or unspecified chronic kidney disease Pt has been followin g general surgery Dr. Aaron [facility] s/p mastectomy. She has been following up every 6 months per office. Discussed w/ HCP she should keep this last appt and then she should not need to keep following up. Related to Hx of left mastectomy Port in chest from oncology Rela markus to Port-A-Cath in place Per preenrollment re cords and family. [facility], [address]. Currently seeing Dr. Calderon.Dr. Calderon prescribes and refills: fish oil, mycophenolate mofetil, and tacrolimusHCP reports best way to contact is through his RN Pau- [phone] Related to Liver transplanted 10/06/21: A1C: 7.2 Related to Ty pe 2 diabetes mellitus without complication, unspecified whether alf insulin use Hx of liver transpla nt, currently taking tacrolimus and mycophenolate prescribed by Dr. Calderon of [facility] liver transplant clinic. Related to Immunosuppressed status [...] on lasix. 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 Follows [facility] every year for full body scan. Discussed keeping appt that has already been scheduled in 10/2021 and then will f/u as needed. Pt and HCP agreeable to this plan. Related to Personal history of other malignant neoplasm of skin Left mastectomy perf ormed in 06/2021 per HCP and pt. Scar notable upon exam, no evidence of infection at surgical site. Related to Hx of left mastectomy Left mastectomy in . Yearly mammograms. History of breast cancer scheduled for mammogram on 10/04/21-completed. Related to HX: breast cancer Per preenrollment re cords and family. [facility], 2000. Currently seeing Dr. Calderon.Dr. Calderon prescribes and refills: fish oil, mycophenolate mofetil, and tacrolimusHCP reports best way to contact is through his RN Pau- [phone] Related to Liver transplanted Occurred w/ liver tr ansplant in 2000. Remained in ICU for several weeks per HCP where she had a trach placed. Now removed. Related to Hx of tracheostomy Bone density exams p erformed every other year per HCP. Next scan due in 2021. Currently taking vitamin D.Vit D level ordered. Related to Vitamin D deficiency Follows [facility] endocrin ology.Currently takes multivitamin, tums, and vit D. Ordered vit D, PTH, and calcium level. Related to Primary hyperparathyroidism Followed by [facility] endo crinology. Referral made to [facility] endocrinology. Currently on levothyroxine: prescirbed by [facility] nurse instructor. 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 Referral made to [facility] endocrinology. Currently on levothyroxine: prescirbed by [facility] nurse instructor. Related to Autoimmune thyroiditis BP stable today: 122 /74Being followed by [facility] order department supervisor: Dr. Blackman. May consider switching cardiologists (to [facility] provider) after medication changes are completed. [...] PEE. Related to Hyperlipidemia, unspecified hyperlipidemia type Normal monofilliment exam. No loss of protection, no ulcers or deformities. Pt checks feet regularly. Followed by [facility] endocrinology. Referral made to [facility] endocrinology. She is on numerous medications r/t DM2 that [facility] [facility]: repaglinide, tresiba, and trulicity Related to Current use of insulin She is currently on eliquis and metoprolol [...] deformities. Pt checks feet regularly. Followed by [facility]. Referral made to [facility] endocrinology. She is on numerous medications r/t DM2 that are being managed by [facility]: repaglinide, tresiba, and trulicity Related to Type 2 diabetes mellitus without complication, unspecified whether alf insulin use Cardiology appt and holter monit or Related [...] or symptoms of dysphagia. Patient Goal Complete 023 Seema is at risk for medical complications [...]
--- OUTSIDE RECORDS SUMMARY | 2025-01-20 18:37 | XMS_ITS | Encounter Summary ---
Author Organization [facility] Address [address] [place] [address] Care Team Providers Care Napkin Machine Operator Name Role Phone Mallorie Draper Primary Care Provider [phone] Reason for Visit * Reason Comments Med Refill Encounter Details Date Type Department Care Team (Late st Contact Info) Description 01/08/2025 Refill [facility] Transplant Services [address] [place] [address] Eveline Calderon MD [address] [place] [id number] Liver replaced by transplant (HCC) Social History [...] Info) Description 03/03/2025 11:00 AM EDT Follow-Up [facility] [address] [place] [address] Eveline Calderon MD [address] [place] [address] documented as of this encounter Visit Diagnoses Diagnosis Liver replaced by transplant (HCC) Liver replaced by transplant documented in this encounter Additional Health Concerns 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
--- OUTSIDE RECORDS SUMMARY | 2025-01-20 18:37 | XMS_ITS ---
Author Organization [facility] Address [address] [place] [address] Care Team Providers Care Superintendent Cemetery Name Role Phone SukhwniderMallorie shelton Stephie Primary Care Provider [phone] Transplant Episode Liver Recipient [facility] ([place], [place]) - [facility] Organ Received: Liver Transplanted on 09/07/2001 Marked as Active Follow-up on 09/07/2001 Liver CoordinatorMonique Capps RN Phone: N/A Fax: N/A Email: N/A [place] Organ Diagnosis Organ Primary Contributory Liver Cirrhosis: [...] N/A N/A N/A Dex Charlton Referring Physician [phone] N/A Eveline Calderon MD Set Up Technician [phone] [email or web address] Events Post-Transplant Pre-Transplant Admitted: 08/22/2001 Referred: 12/17/2000 Transplanted: 09/07/2001 Evaluation began: 1 Discharged: 12/20/2001 Committee: 07/02/2001 Center waitlisted: 1
--- OUTSIDE RECORDS SUMMARY | 2025-01-20 18:37 | XMS_ITS | Clinical Summary ---
Author Organization [facility] Address [address] [place] [address] Phone Care Team Providers Care Steel Roller Name Role Phone Os, Roxy JOSE Primary [...] by mouth 2 Active ergocalciferol 1.25 MG (37557 UT) capsule Take 1 capsule by mouth [...] Visit [facility] [address] [place] [address] Vicente Benson MD [address] [facility] [address] [place] [address] Health Maintenance Due Date Last [...] patient's age to complete this topic Insurance [place] [facility]/sim4tec ([id number]) [place] [id number] [place] [facility]/[employer] (SX072) Care Teams Steel Roller Relationship Specialty Start Date End Date Anuj, DAMON Ramsey [address] [place] [address] PCP - General Geriatric Medicine 07/17/24
--- OUTSIDE RECORDS SUMMARY | 2025-01-20 18:37 | XMS_ITS | Referral Summary ---
Author Organization [facility] Address [address] [place] [address] Care Team Providers Care Scientific Illustrator Name Role Phone Mallorie Draper Primary Care Provider [phone] Encounters Date Type Department Care Team Description 01/08/2025 Refill [facility] Liver Transplant Services [address] [place] [address] Eveline Calderon MD Liver replaced by transplant ([facility]) 12/11/2024 Refill [facility] Transplant Services [address] [place] [address] Eveline Calderon MD Liver replaced by transplant ([facility]) 11/13/2024 Refill [facility]plant [facility] [address] [place] [address] Eveline Calderon MD Liver replaced by transplant ([facility]) from Last 3 Months Allergies Active Allergy [...] day. 09/12/20 22 Active FreeStyle Ev [address] [facility] 07/13/20 22 Active calcium carbonate 400 mg calcium (1,000 mg) tablet,chewable Chew and swallow 1,000 mg by mouth. 05/17/20 22 Active OneTouch Verio Flex meter [facility] 01/25/20 22 Active omega-3 acid ethyl esters (LOVAZA) 1 [...] DAILY. 56 capsule 01/09/20 25 Active omega 5-dky-pcl-fish oil 300-1,000 mg capsule capsule @@ TAKE [...] 56 capsule 12/12/19 25 025 Discontinued omega 6-qwp-ipb-fish oil 300-1,000 mg capsule capsule @@ TAKE [...] nasal swab MRSA PCR. -ICU glycemic protocol. -LIVESTOCK EXHIBITOR evaluation, if ok to take po diet [...] Administration Dates Next Due Covid-19, Pfizer, mRNA, [place] valent, PF 30 mcg/0.3 mL dose (for [...] Info) Description 03/03/2025 11:00 AM EDT Follow-Up [facility] Transplant Services [address] [place], [place] [id number] Eveline Cadleron MD [address] [place] [address] Medical Devices Implanted Type Area Upper Marker Device Identifier Shelf Expiration Date Model / Serial / Lot Mesh Ventral Hernia Soft Square [id number] - [id number] Implanted:Qty: 1 on 11/29/2022 by Ptia Clark MD MPH at [facility] Mesh N/A: Abdomen [employer] 05/23/2027 [id number] / / [id number] Description:Verified by RK, ROBBY and ANASTASIYA. Procedures * Due to [place] state law, this organization might not be [...] to Health Maintenance Results * Due to [place] state law, this organization might not be sharing negative HIV tests. * (ABNORMAL) CBC Auto Differential (03/06/2024 3:44 PM EDT) WBC 11.7(H) 3.8 - 10.8 10*3/uL 03/06/2024 5:32 PM EDT [facility] RBC 4.26 3.80 - 5.10 10*6/uL 03/06/2024 5:32 PM EDT [facility] Hemoglobin 12.9 11.7 - 15.5 g/dL 03/06/2024 5:32 PM EDT [facility] Hematocrit 38.9 35.0 - 45.0 % 03/06/2024 5:32 PM EDT [facility] MCV 91.3 80.0 - 100.0 fL 03/06/2024 5:32 PM EDT [facility] MCH 30.3 27.0 - 33.0 pg 03/06/2024 5:32 PM EDT [facility] MCHC 33.2 32.0 - 36.0 g/dL 03/06/2024 5:32 PM EDT [facility] RDW 15.6(H) 11.0 - 15.0 % 03/06/2024 5:32 PM EDT [facility] Platelets 389 140 - 400 10*3/uL 03/06/2024 5:32 PM EDT [facility] MPV 10.2 7.5 - 12.5 fL 03/06/2024 5:32 PM EDT [facility] nRBC % 0.3 /100 WBCs 03/06/2024 5:32 PM EDT [facility] nRBC # 0.04(H) <0.01 10*3/uL 03/06/2024 5:32 PM EDT [facility] Blood Structure of peripheral vein / Unknown Venipuncture / Unknown 03/06/2024 3:44 PM EDT 03/06/2024 3:57 PM EDT us Eveline Calderon MD LAB BLOOD ORDERABLES Final Resul t [facility] [address] [place] [address], * (ABNORMAL) Comprehensive Metabolic Panel (03/06/2024 3:44 PM EDT) NA 139 135 - 145 mmol/L 03/06/2024 4:39 PM EDT [facility] K 4.1 3.5 - 5.3 mmol/L 03/06/2024 4:39 PM EDT [facility] Cl 104 97 - 110 mmol/L 03/06/2024 4:39 PM EDT [facility] CO2 25 24 - 32 mmol/L 03/06/2024 4:39 PM EDT [facility] Anion Gap 10 5 - 15 03/06/2024 4:39 PM EDT [facility] Glucose 184(H) 70 - 99 mg/dL 03/06/2024 4:39 PM EDT [facility] Creatinine 1.47(H) 0.50 - 1.20 mg/dL 03/06/2024 4:39 PM EDT [facility] Calcium 8.8 8.7 - 10.7 mg/dL 03/06/2024 4:39 PM EDT [facility] Total Protein 6.4 6.0 - 8.0 g/dL 03/06/2024 4:39 PM EDT [facility] Albumin 3.3(L) 3.5 - 4.8 g/dL 03/06/2024 4:39 PM EDT [facility] Bilirubin, Total 0.4 0.3 - 1.2 mg/dL 03/06/2024 4:39 PM EDT [facility] Alkaline Phosphatase 56 30 - 115 U/L 03/06/2024 4:39 PM EDT [facility] AST 17 10 - 40 U/L 03/06/2024 4:39 PM EDT [facility] ALT 13 10 - 40 U/L 03/06/2024 4:39 PM EDT [employer] [employer] BUN 31(H) 7 - 23 mg/dL 03/06/2024 4:39 PM EDT [facility] eGFR 38(L) >=60 mL/min/1 .73m2 03/06/2024 4:39 PM EDT [facility] Comment:The estimated glomer ular [...] ORDERABLES Final Resul t Performing Organization Address City/[facility]/ZIP Co de Phone Number [facility] [address] [place] [address], * (ABNORMAL) Phosphorus (12/29/2022 5:16 AM EST) Phosphorus 2.2(L) 2.5 - 4.5 mg/dL 12/29/2022 6:12 AM EST [facility] Blood Structure of peripheral vein / Unknown Venipuncture / Unknown 12/29/2022 5:16 AM EST 12/29/2022 5:38 AM EST Maycol Flores MD LAB BLOOD ORDERABLES Final Resu lt Performing Organization Address [facility] Co de Phone Number [facility] [address] [place] [address], [place] * (ABNORMAL) Hemoglobin A1c (05/10/2017 4:19 PM EDT) Hemoglobin A1C 6.8(H) <5.7 [facility] Comment: UNITS OF MEASURE: % of total [...] for children. eAG (MG/DL) 148 () (calc) [facility] eAG (MMOL/L) 8.2 () (calc) [facility] 05/10/2017 4:19 PM EDT 05/10/2017 5:43 PM EDT Eveline Calderon MD LAB BLOOD ORDERABLES Final Resul t Performing Organization Address City/[facility]/ZIP Co de Phone Number [facility] [address] [facility] [address], [place] [address], [place] [phone] * Vitamin D, 25-Hydroxy, Total, Immunoassay (07/04/2012 11:33 AM EDT) Vitamin D 25 Oh 41 30 - 100 ng/mL [facility] Comment: Vitamin D Status 25-OH Vitamin D Deficiency: <10 ng/mL Insufficiency: 10-30 ng/mL Sufficiency: 30-100 ng/mL Toxicity: >100 ng/mL 07/04/2012 11:3 3 AM EDT 07/04/2012 12:01 PM EDT Rciardo Mejia MD LAB BLOOD ORDERABLES Final Resul t [facility] [address] [place] [address], * PTH, Intact (without Calcium) (07/04/2012 11:33 AM EDT) Parathyroid Intact 60 12 - 65 pg/mL [facility] 07/04/2012 11:3 3 AM EDT 07/04/2012 12:01 PM EDT Ricardo Mejia MD LAB BLOOD ORDERABLES Final Resul t Performing Organization Address City/[facility]/ZIP Co de Phone Number [facility] [address] [place] [address] from Last 3 Months or Most Recently Relevant to Health Maintenance Additional Health Concerns Infection Onset Date 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 12/26/2022 Insurance [facility] [address] Room 237 Room [address] Advance Directives Documents on File Type Date Recorded 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
--- OUTSIDE RECORDS SUMMARY | 2025-01-20 18:37 | XMS_ITS | Clinical Summary ---
Author Organization Unknown Care Team Providers Care Internet Security Specialist Name Role Phone DEANNA PENA, MARTHA Unavailable Unavailable CHADWICK MAGAÑA, FBAIÁN Unavailable Unavailable Payers Payer Name Policy Type Policy Number Effective Date Expira tion Date [facility] [place] [id number] MEDICAID [facility] [id number] MEDICARE - [facility] [place] [id number] Problems Condition Name Condition Details Condition Category [...] 05-07 00:00: 00 05-28 23:59 :00 No [id number] Per instruc tions 2 TIMES DAILY Per instructio ns 2 TIMES DAILY (route: subcutaneo us) Med Classific ation: Endocrine Lantus Solostar U-100 Insulin 100 unit/mL (3 mL) subcutaneou s pen 05-07 00:00: 05-21 00:00 :00 No [id number] Per instruc tions Per instructio ns (route: subcutaneo us) Med Classific ation: Endocrine repaglinide 1 mg tablet 05-07 00:00: 00 Yes [id number] 1 mg 3 TIMES DAILY 1 mg 3 TIMES DAILY (route: oral) Med Classific ation: Endocrine allopurinol 300 mg tablet 04-22 00:00: 00 Yes [id number] 300 mg DAILY 300 mg DAILY (route: oral) Med Classific ation: Gout and Hyperuric emia Therapy anastrozole 1 mg tablet 04-22 00:00: 00 Yes [id number] 1 mg DAILY 1 mg DAVID Y (route: oral) Med Classific ation: Antineopl astics atorvastati n 40 mg tablet 04-22 00:00: 00 Yes [id number] 40 mg DAILY 40 mg DAILY (route: oral) Med Classific ation: Cardiovas cular Therapy Agents Calcium Antacid 200 mg (as calcium carbonate 500 mg) chewable tablet 04-22 00:00: 00 Yes [id number] 2 tablet DAILY 2 tablet DAILY (route: oral) Med Classific ation: Gastroint estinal Therapy Agents diltiazem CD 180 mg capsule,ext ended release 24 hr 04-22 00:00: 00 Yes [id number] 180 mg DAILY 180 mg DAILY (route: oral) Med Classific ation: Cardiovas cular Therapy Agents Eliquis 5 mg tablet 04-22 00:00: 00 Yes [id number] 5 mg 2 TIMES DAILY 5 mg 2 TIMES DAILY (route: oral) Med Classific ation: Hematolog ical Agents levothyroxi ne 88 mcg tablet 04-22 00:00: 00 Yes [id number] 88 mcg DAILY 88 mcg DAILY (route: oral) Med Classific ation: Endocrine metoprolol tartrate 25 mg tablet 04-22 00:00: 00 Yes [id number] 25 mg DAILY 25 mg DAILY (route: oral) Med Classific ation: Cardiovas cular Therapy Agents mycophenola te mofetil 250 mg capsule 04-22 00:00: 00 Yes [id number] 250 mg 2 TIMES DAILY 250 mg 2 TIMES DAILY (route: oral) Med Classific ation: Immunosup pressive Agents tacrolimus 0.5 mg capsule, immediate-r elease 04-22 00:00: 00 Yes [id number] 0.5 mg 2 TIMES DAILY 0.5 mg 2 TIMES DAILY (route: oral) Med Classific ation: Immunosup pressive Agents ergocalcife rol (vitamin D2) 1,250 mcg (50,000 unit) capsule 04-22 00:00: 00 05-21 00:00 :00 No [id number] Per instruc tions Per instructio ns (route: oral) Med Classific ation: Electroly te Balance-N utritiona l Products repaglinide 0.5 mg tablet 05-21 00:00: 00 Yes [id number] 0.5 mg 2 TIMES DAILY 0.5 mg 2 TIMES DAILY (route: oral) Med Classific ation: Endocrine Trulicity 3 mg/0.5 mL subcutaneou s pen injector 05-21 00:00: 00 05-28 23:59 :00 No [id number] 3 mg WEEKLY 3 mg WEEKLY (route: subcutaneo us) Med Classific ation: Endocrine Vitamin D3 25 mcg (1,000 unit) capsule 05-21 00:00: 00 Yes [id number] 25 mcg DAILY 25 mcg DAILY (route: oral) Med Classific ation: Electroly te Balance-N utritiona l Products Lantus Solostar U-100 Insulin 100 unit/mL (3 mL) subcutaneou s pen 05-29 00:00: 00 01-14 23:59 :00 No [id number] 34 unit DAILY 34 unit DAILY (route: subcutaneo us) Med Classific ation: Endocrine Trulicity 4.5 mg/0.5 mL subcutaneou s pen injector 05-29 00:00: 00 Yes [id number] 4.5 mg WEEKLY 4.5 mg WEEKLY (route: subcutaneo us) Med Classific ation: Endocrine Lantus Solostar U-100 Insulin 100 unit/mL (3 mL) subcutaneou s pen 01-14 00:00: 00 Yes [id number] 37 unit DAILY 37 unit DAILY (route: [...] AWARENESS FOR SAFETY AND WILL NOTIFY CLINICAL MERCHANDISE WORKER AND PHYSICIAN/PROVIDER WITH ANY CHANGE IN CONDITION. [code = SKILLED NURSE WILL MAINTAIN SITUATIONAL AWARENESS FOR SAFETY AND WILL NOTIFY CLINICAL MERCHANDISE WORKER AND PHYSICIAN/PROVIDER WITH ANY CHANGE IN CONDITION.] [...] CARE WILL BE ESTABLISHED THAT MEETS PATIENT'S USP NEEDS AND INCLUDES PATIENT GOAL FOR HOME [...] HAVE SUPPORTIVE FAMILY WHO LIVE [facility] STAFF A CAREGIVER AVAILABLE. PATIENT DOES NOT UTILIZE DME. PATIENT RESOURCES INCLUDE REGULAR COMPANIONS FROM THE [place] [employer] PATIENT REQUIRES USP VISITS DAILY FOR FOR INSULIN ADMINISTRATION, MEDICATION EDUCATION. PT'S LANTUS INSULIN RECENTLY INCREASED TO 37 UNITS DAILY IN AM WITH SOME EFFECTIVENESS NOTED.</paragraph> Encounters Start Date/Time End Date/Time Encounter Type Admission Type Attending [facility] Care Department Encounter ID Discharge Date Discharge Status Discharge Condition Discharge Reason Percent Goals Met 2024-05-21 00:00:00 2025-03-16 00:00:00 Outpatient ALFREDORTFABIÁN MARTINEZ [facility] [id number]
--- OUTSIDE RECORDS SUMMARY | 2025-01-20 18:37 | XMS_ITS | Patient Health Record ---
Author Organization [facility] Address [address] [place] [address] Care Team Providers Care Musical Instrument Mechanic Name Role Phone Nahum Fernandez MD Primary Care Provider Dex Live Unavailable [phone] REASON FOR REFERRAL No Information MEDICATIONS Medication SIG (Take, Route, Frequency, Duration) Notes Start Date End Date Status Vitamin D (Ergocalciferol) 20682 UNIT TAKE 1 CAPSULE EVERY 2 WEEKS. [...] HCl 0.3 MG TAKE 1 TABLET BY [facility] EVERY DAY Oral for 90 Active Flintstones [...] HCl 500 MG TAKE 1 TABLET BY [facility] TWICE A DAY WITH MEALS Oral for [...] malignant neoplasm of colon (Z12.11) Active confirmed [id number] Problem Encounter for screening for malignant neoplasm of rectum (Z12.12) Active confirmed Screening for malignant neoplasm of rectum (364065211) Problem Long-term use of aspirin therapy (Z79.82) Active confirmed 076271305 Problem Hx of cirrhosis (Z87.19) Active confirmed [id number] PLAN OF TREATMENT Future Test Test Name Order Date COLONOSCOPY 06/13/2016 Insurance Providers Payer Name Payer Address Payer Phone Subscriber Number Group Number Insured Name Patient Relationship to Insured Coverage Start Date Coverage End Date MEDICARE OF [place] [address] [place] [address] [id number] GILLES CHONG Self - patient is the insured MEDICAID OF 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
== END 2025-01-20 14:50 | disposition home or self-care (01) ==
LOC: HO.LNP 14:49
PROVIDERS: Visit Provider Internal Medicine
DX: N18.31 Chronic kidney disease, stage 3a (principal); Z94.4 Liver transplant status
CPT/HCPCS: 82043; 82570

== ENCOUNTER 2025-03-10 13:53 | Outpatient (REF) | payer OTHER, SELFPAY ==
[2025-03-10 14:44] LABS: MANUAL DIFF FLAG NO
[2025-03-10 15:03] LABS: Basophils Absolute Auto 0.1 X10*3/uL (0.0-0.2); Basophils Percent Auto 0.7 % (0-2); Eosinophils Absolute Auto 0.2 X10*3/uL (0.0-0.4); Eosinophils Percent Auto 2.8 % (0-4); Hematocrit 35.8 % (37.0-47.0); Hemoglobin 11.9 g/dl (12.0-16.0); Imm Gran Abs Auto 0.03 X10*3/uL (0.00-0.03); Imm Gran Pct Auto 0.3 % (0.0-0.4); Lymphocytes Absolute Auto 3.3 X10*3/uL (1.2-4.9); Lymphocytes Percent Auto 38.7 % (20-40); Mean Corpuscular HGB Conc 33.2 g/dl (31.0-35.0); Mean Corpuscular Hemoglobin 30.1 pg (27.0-33.0); Mean Corpuscular Volume 90.6 fL (80.0-98.0); Mean Platelet Volume 10.6 fL (9.4-12.3); Monocytes Absolute Auto 0.8 X10*3/uL (0.1-1.2); Monocytes Percent Auto 8.7 % (2-11); NRBC Pct Auto 0.3 /100WBC (0.0-0.2); Neutrophils Absolute Auto 4.2 x10*3/uL (2.0-8.3); Neutrophils Percent Auto 48.8 % (45-73); Platelet Count 364 X10*3/uL (160-400); Red Blood Count 3.95 X10*6/uL (4.20-5.50); Red Cell Distribution Width 14.8 % (11.0-16.0); White Blood Count 8.6 X10*3/uL (4.8-10.8)
[2025-03-10 15:31] LABS: Anion Gap 13 (12-20); Blood Urea Nitrogen 56 mg/dL (9-16); Calcium 9.5 mg/dL (8.4-10.2); Carbon Dioxide 18 mmol/L (22-29); Chloride 110 mmol/L (96-108); Estimated Glomerular Filt Rate 25; Glucose Random 251 mg/dL (60-115); Potassium 5.3 mmol/L (3.3-5.1); Sodium 136 mmol/L (135-145)
--- OUTSIDE RECORDS SUMMARY | 2025-03-10 17:12 | XMS_ITS | Encounter Summary ---
Author Organization [facility] Address [address] [place] [address] Care Team Providers Care Wood And Hardware Outfitter Name Role Phone SukhwinderMallorie shelton Stephie Primary Care Provider [phone] Encounter Details Date Type Department Care Team (Late st Contact Info) Description 08/29/2017 Transplant Conversio n Encounter [facility] Health Information Management [address] [place] [address] Provider, [facility] Social History Tobacco Use Types Packs/Day Years [...] Care Team (Late st Contact Info) Description 03/02/2026 11:30 AM EDT Follow-Up [facility] Transplant Services [address] [place] [address] Eveline Calderon MD [address] [place] [address] documented as of this encounter Visit Diagnoses Not on filedocumented in this encounter Additional Health Concerns Infection Onset Date Last Indicated Resolved Time COVID-19 - Confirmed infecti on Comment:[facility] 12/28/2020 12/28/2020 01/18/2021 3:47 PM EST R/O Respiratory Virus Infection 12/26/2022 3 12/26/2022 10:05 PM EST R/O Influenza 12/26/2022 12/26/2022 12/26/2022 10: 05 PM EST COVID-19 - Suspected infection 12/26/2022 12/26/2022 12/26/2022 10:05 PM EST 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
--- OUTSIDE RECORDS SUMMARY | 2025-03-10 17:13 | XMS_ITS | Clinical Summary ---
Author Organization [facility] Address [address] [place] [address] Care Team Providers Care Swimming Pool Servicer Name Role Phone Mallorie Draper Primary Care Provider [phone] Allergies Active Allergy Reactions Criticality Noted Date Comments No Known Drug Allergies Unknown Peanut Rash Piperacillin Unknown 03/03/2025 Piperacillin-Tazobactam Drug rash with e osinophilia and [...] a day. 09/12/20 Active FreeStyle Ev 2 [place] [facility] 07/13/20 Active calcium carbonate 400 mg calcium (1,000 mg) tablet,chewable Chew and swallow 1,000 mg by mouth. 05/17/20 Active OneTouch Verio Flex meter [facility] 01/25/20 Active omega-3 acid ethyl esters (LOVAZA) [...] Active Additional Information Patient not taking.Reported on 03/03/2025 Calcium Antacid 200 mg calcium (500 mg) chewable tablet 12/21/19 23 Active ergocalciferol (VITAMIN D2) 1,250 mcg (50,000 unit) capsule 12/21/19 23 Active metFORMIN (GLUCOPHAGE) 500 mg tablet Take 500 mg by mouth. 11/02/20 Active aspirin chewable tablet 81 mg Chew and swallow 81 mg by mouth. Active furosemide (Lasix) 20 mg tablet Take 20 mg by mouth. 08/16/20 22 Active lisinopriL (ZestriL) 5 mg tablet Take 5 mg by mouth. 08/16/20 22 Active lisinopriL (PRINIVIL,ZESTR IL) 20 mg tablet Take 20 mg by mouth. 02/10/20 25 026 Active mycophenolate mofetil (CELLCEPT) 250 mg capsuleIndicati ons:Liver replaced by transplant (HCC) TAKE (1) CAPSULE BY MOUTH TWICE DAILY 60 capsule 03/06/20 25 Active omega 7-wkb-enp-fish oil 300-1,000 mg capsule capsule @@ TAKE 1 CAPSULE BY MOUTH DAILY. 28 capsule 03/06/20 25 Active tacrolimus (PROGRAF) 0.5 mg capsuleIndicati ons:Liver replaced by transplant (HCC) Take 1 capsule (0.5 mg total) by mouth once a day. 56 capsule 11 03/06/20 25 025 Active mycophenolate mofetil (CELLCEPT) 250 mg capsuleIndicati ons:Liver replaced by transplant (HCC) TAKE (1) CAPSULE BY MOUTH TWICE DAILY 60 capsule 02/06/20 25 025 Discontinued tacrolimus (PROGRAF) 0.5 mg capsuleIndicati ons:Liver replaced by transplant (HCC) TAKE (1) CAPSULE BY MOUTH TWICE DAILY. 56 capsule 02/06/20 25 025 Discontinued omega 9-vor-sxz-fish oil 300-1,000 mg capsule capsule @@ TAKE 1 CAPSULE BY MOUTH DAILY. 28 capsule 02/06/20 25 025 Discontinued tacrolimus (PROGRAF) 0.5 mg capsuleIndicati ons:Liver replaced by transplant (HCC) Take 1 capsule (0.5 mg total) by mouth once a day. 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 Home meds: tacrolimus [...] nasal swab MRSA PCR. -ICU glycemic protocol. -DIRECTOR OF CORPORATE RESPONSIBILITY evaluation, if ok to take po diet [...] Encounters Date Type Department Care Team Description 03/06/2025 Refill [facility] [address] [place] [address] Eveline Calderon MD Liver replaced by transplant (HCC) 03/05/2025 Telephone [facility] Transplant Department [address] [place] [address] Monique Capps RN 03/05/2025 Refill [facility] [address] [place] [address] Eveline Calderon MD Liver replaced by transplant (HCC) 03/04/2025 Results Follow-Up [facility] Transplant Department [address] [place] [address] Monique Capps RN 03/03/2025 11:00 AM EDT Follow-Up [facility] [address] [place] [address] 28798 Eveline Calderon MD Liver replaced by transplant (HCC); Immunosuppressed status (HCC) 02/05/2025 Refill [facility] [address] [place] [address]8775 Eveline Calderon MD Liver replaced by transplant 01/08/2025 Refill [facility] [address] [place] [address] 43508 Eveline Calderon MD Liver replaced by transplant 12/11/2024 Refill [facility] [address] [place] [address]1878 Eveline Calderon MD Liver replaced by transplant from Last 3 Months Immunizations Immunization Administration Dates Next Due Covid-19, Pfizer, mRNA, [place] valent, PF 30 mcg/0.3 mL dose (for [...] Sign Reading Time Taken Comments Blood Pressure 134/75 03/03/2025 10:35 AM EDT Pulse 85 03/03/2025 10:35 AM EDT Temperature 36.8 ??C (98.2 ??F) 03/03/2025 1 0:35 AM EDT Respiratory Rate 20 03/03/2025 10:3 5 AM EDT Oxygen Saturation 96% 03/03/2025 10: 35 AM EDT Inhaled Oxygen Concentration - - Weight 79.7 kg (175 lb 11.3 oz) 025 10:35 AM EDT Height 150 cm (4' 11.06 ) 12/05/2022 10 :00 AM EST Body Mass Index 35.42 12/05/2022 10:00 AM EST Plan of Treatment Upcoming Encounters Date Type Department Care Team (Late st Contact Info) Description 03/02/2026 11:30 AM EDT Follow-Up [facility] [address] [place], [place] [id number] Eveline Calderon MD [address] [place] [address] Health Maintenance Due Date Last Done Comments CKD: Referral to Nephrology 1955 Cologuard 1955 FOBT / Fit Test 1955 [...] 2024 03/23/2022, 10/06/2021, 02/23/2021, Additional history exists Alcohol/Substance Use Screening 11/26/2024 Depression Screening and Follow-Up 11/26/2024 Health Care Proxy Review 11/26/2024 Social Drivers of Health Annual Screening 11/26/2024 Basic Metabolic Panel 07/03/2025 03/03/2025 , 03/06/2024, 04/24/2023, Additional history exists Hemoglobin 03/03/2026 03/03/2025, 02/24, 09/19/2023, Additional history exists Colon Cancer Screening 10/09/2026 Colonoscopy 10/09/2026 10/09/2016 DTaP,Tdap,and Td Vaccines (3 - Td or Tdap) 03/24/2029 03/24/2019, 03/24/2019 Mammogram Discontinued 03/06/2017, 04/2017, 02/24/2016, Additional history exists Pneumococcal Vaccine: 50+ Years Completed 11/25/2019, 02/14/2016, 02/14/2016, Additional history exists Zoster Vaccines Completed 03/10/2024, 10/08/2023 Influenza Vaccine Completed 08/19/2024, , 08/29/2022, Additional history exists Hepatitis B Vaccines Aged Out No long er eligible based on patient's age to complete this topic Medical Devices Implanted Type Area Sports Cartoonist Device Identifier Shelf Expiration Date Model / Serial / Lot Mesh Ventral Hernia Soft Square [id number] - [id number] Implanted:Qty: 1 on 11/29/2022 by Pita Clark MD MPH at [facility] Mesh N/A: Abdomen [employer] 05/23/2027 [id number] / / [id number] Description:Verified by RK, NC and ANASTASIYA. Procedures * Due to [place] state law, this organization might not be sharing negative HIV tests. Procedure Name Priority Date/Time Associated Diagnosis Comments COMPREHENSIVE METABOLIC PANEL Routine 03/03/2025 11:05 AM EDT Liver replaced by transplant (HCC) Immunosuppressed status (HCC) MAGNESIUM Routine 03/03/2025 11:05 AM EDT Liver replaced by transplant (HCC) Immunosuppressed status (HCC) CBC AUTO DIFFERENTIAL Routine 03/03/2025 11:05 AM EDT Liver replaced by transplant (HCC) Immunosuppressed status (HCC) TACROLIMUS LEVEL Routine 03/03/2025 11:0 5 AM EDT Liver replaced by transplant (HCC) Immunosuppressed status (HCC) PHOSPHORUS Routine 12/29/2022 5:16 AM EST HEMOGLOBIN A1C Routine 05/10/2017 4:19 PM EDT VITAMIN D, 25-HYDROXY, TOTAL, IMMUNOASSAY Routine 07/04/2012 11:33 AM EDT PTH, INTACT (WITHOUT CALCIUM) Routine 07/04/2012 11:33 AM EDT from Last 3 Months or Most Recently Relevant to Health Maintenance Results * Due to [place] state law, this organization might not be sharing negative HIV tests. * (ABNORMAL) CBC Auto Differential (03/03/2025 11:05 AM EDT) WBC 8.9 3.8 - 10.8 10*3/uL 03/03/2025 4:22 PM EDT [facility] RBC 4.18 3.80 - 5.10 10*6/uL 03/03/2025 4:22 PM EDT [facility] Hemoglobin 12.4 11.7 - 15.5 g/dL 03/03/2025 4:22 PM EDT [facility] Hematocrit 38.4 35.0 - 45.0 % 03/03/2025 4:22 PM EDT [facility] MCV 91.9 80.0 - 100.0 fL 03/03/2025 4:22 PM EDT [facility] MCH 29.7 27.0 - 33.0 pg 03/03/2025 4:22 PM EDT [facility] MCHC 32.3 32.0 - 36.0 g/dL 03/03/2025 4:22 PM EDT [facility] RDW 15.0 11.0 - 15.0 % 03/03/2025 4:22 PM EDT [facility] Platelets 323 140 - 400 10*3/uL 03/03/2025 4:22 PM EDT [facility] MPV 11.1 7.5 - 12.5 fL 03/03/2025 4:22 PM EDT [facility] Neutrophil % 50.4 % 03/03/2025 4:22 PM EDT [facility] Immature Grans % 0.3 0.0 - 0.9 % 03/03/2025 4:22 PM EDT [facility] Lymphocyte % 36.5 % 03/03/2025 4:22 PM EDT [facility] Monocyte % 9.0 % 03/03/2025 4:22 PM EDT [facility] Eosinophil % 2.9 % 03/03/2025 4:22 PM EDT [facility] Basophil % 0.9 % 03/03/2025 4:22 PM EDT [facility] Neutrophil # 4.49 1.50 - 7.80 10*3/uL 03/03/2025 4:22 PM EDT [facility] Immature Grans # 0.03 <=0.03 10*3/uL 03/03/2025 4:22 PM EDT [facility] Lymphocyte # 3.30 0.85 - 3.90 10*3/uL 03/03/2025 4:22 PM EDT [facility] Monocyte # 0.80 0.20 - 0.95 10*3/uL 03/03/2025 4:22 PM EDT [facility] Eosinophil # 0.30 0.02 - 0.50 10*3/uL 03/03/2025 4:22 PM EDT [facility] Basophil # 0.10 0.00 - 0.20 10*3/uL 03/03/2025 4:22 PM EDT [facility] nRBC % 0.4 /100 WBCs 03/03/2025 4:22 PM EDT [facility] nRBC # 0.04(H) <0.01 10*3/uL 03/03/2025 4:22 PM EDT [facility] Blood Structure of peripheral vein / Unknown Venipuncture / Unknown 03/03/2025 11:05 AM EDT 03/03/2025 11:05 AM EDT Eveline Calderon MD LAB BLOOD ORDERABLES Final Resul t [facility] [address] [place] [address], * Tacrolimus Level (03/03/2025 11:05 AM EDT) Pathologist [facility] Tacrolimus, Highly Sensitive 5.7 mcg/L 03/03/2025 5:03 PM EDT [facility] Comment: No definitive therapeutic or toxic ranges have been established. Optimal blood drug levels are influenced by type of transplant, patient response, time post- transplant, co-administration of other drugs, and drug formulation. The following trough range is a suggested guideline: 5.0-20.0 mcg/L. This test was developed and its analytical performance characteristics have been determined by [facility]. It has not been cleared or approved by the FDA. This assay has been validated pursuant to the CLIA regulations and is used for clinical purposes. Blood Structure of peripheral vein / Unknown Venipuncture / Unknown 03/03/2025 11:05 AM EDT 03/03/2025 11:05 AM EDT [facility] - 03/03/2025 5:03 PM EDT [facility] Received Date:[id number] Eveline Calderon MD LAB BLOOD ORDERABLES Final Resul t [facility] [address], [place] [address], [place] [phone] [facility] [address], [place] [address], [place] [phone] * Magnesium (03/03/2025 11:05 AM EDT) MG 1.7 1.6 - 2.4 mg/dL 03/03/2025 12:32 PM EDT [facility] Blood Structure of peripheral vein / Unknown Venipuncture / Unknown 03/03/2025 11:05 AM EDT 03/03/2025 11:05 AM EDT Eveline Calderon MD LAB BLOOD ORDERABLES Final Resul t [facility] [address] [place] [address], * (ABNORMAL) Comprehensive Metabolic Panel (03/03/2025 11:05 AM EDT) NA 139 135 - 145 mmol/L 03/03/2025 12:32 PM EDT [facility] K 5.5(H) 3.5 - 5.3 mmol/L 03/03/2025 12:32 PM EDT [facility] Cl 107 98 - 107 mmol/L 03/03/2025 12:32 PM EDT [facility] CO2 20(L) 22 - 32 mmol/L 03/03/2025 12:32 PM EDT [facility] Anion Gap 12 5 - 15 [facility] 03/03/2025 12:32 PM EDT [facility] Glucose 278(H) 65 - 99 mg/dL 03/03/2025 12:32 PM EDT [facility] Creatinine 2.19(H) 0.50 - 1.20 mg/dL 03/03/2025 12:32 PM EDT [facility] Calcium 9.9 8.6 - 10.5 mg/dL 03/03/2025 12:32 PM EDT [facility] Total Protein 6.9 6.0 - 8.0 g/dL 03/03/2025 12:32 PM EDT [facility] Albumin 3.5 3.5 - 5.2 g/dL 03/03/2025 12:32 PM EDT [facility] Bilirubin, Total 0.3 0.2 - 1.2 mg/dL 03/03/2025 12:32 PM EDT [facility] Alkaline Phosphatase 111 35 - 129 U/L 03/03/2025 12:32 PM EDT [facility] AST 20 10 - 40 U/L 03/03/2025 12:32 PM EDT [facility] ALT 15 10 - 40 U/L 03/03/2025 12:32 PM EDT [facility] BUN 57(H) 7 - 23 mg/dL 03/03/2025 12:32 PM EDT [facility] eGFR 24(L) >=60 mL/min/1 .73m2 [facility] 03/03/2025 12:32 PM EDT [facility] Comment:The estimated glomer ular [...] of Race in Diagnosing Kidney Disease . Globulin, Total 3.4 2.1 - 4.2 g/dL [facility] 03/03/2025 12:32 PM EDT [facility] A/G Ratio 1.0(L) 1.5 - 3.0 [facility] 03/03/2025 12:32 PM EDT [facility] Blood Structure of peripheral vein / Unknown Venipuncture / Unknown 03/03/2025 11:05 AM EDT 03/03/2025 11:05 AM EDT Eveline Calderon MD LAB BLOOD ORDERABLES Final Resul t Performing Organization Address City/[facility] Co de Phone Number [facility] [address] [place] [address], * (ABNORMAL) Phosphorus (12/29/2022 5:16 AM EST) Phosphorus 2.2(L) 2.5 - 4.5 mg/dL 12/29/2022 6:12 AM EST [facility] Blood Structure of peripheral vein / Unknown Venipuncture / Unknown 12/29/2022 5:16 AM EST 12/29/2022 5:38 AM EST Maycol Flores MD LAB BLOOD ORDERABLES Final Resu lt Performing Organization Address City/[facility] Co de Phone Number [facility] [address] [place] [address], [place] * (ABNORMAL) Hemoglobin A1c (05/10/2017 4:19 PM EDT) Hemoglobin A1C 6.8(H) <5.7 [facility] Comment: UNITS OF MEASURE: % of [...] for children. eAG (MG/DL) 148 () (calc) [facility] eAG (MMOL/L) 8.2 () (calc) [facility] 05/10/2017 4:19 PM EDT 05/10/2017 5:43 PM EDT Eveline Calderon MD LAB BLOOD ORDERABLES Final Resul t Performing Organization Address City/[facility] Co de Phone Number [address] [facility], [place] [address], [place] [phone] * Vitamin D, 25-Hydroxy, Total, Immunoassay (07/04/2012 11:33 AM EDT) Vitamin D 25 Oh 41 30 - 100 ng/mL [facility] Comment: Vitamin D Status 25-OH Vitamin D Deficiency: <10 ng/mL Insufficiency: 10-30 ng/mL Sufficiency: 30-100 ng/mL Toxicity: >100 ng/mL 07/04/2012 11:3 3 AM EDT 07/04/2012 12:01 PM EDT Ricardo Mejia MD LAB BLOOD ORDERABLES Final Resul t Performing Organization Address [facility] Co de Phone Number [facility] [address] [place] [address], * PTH, Intact (without Calcium) (07/04/2012 11:33 AM EDT) Parathyroid Intact 60 12 - 65 pg/mL [facility] 07/04/2012 11:3 3 AM EDT 07/04/2012 12:01 PM EDT Ricardo Mejia MD LAB BLOOD ORDERABLES Final Resul t Performing Organization Address City/[facility] Co de Phone Number [facility] [address] [place] [address], [place] from Last 3 Months or Most Recently Relevant to Health Maintenance Additional Health Concerns Infection Onset Date 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
--- OUTSIDE RECORDS SUMMARY | 2025-03-10 17:13 | XMS_ITS ---
Author Organization [facility] Address [address] [place] [address] Care Team Providers Care Ski Patrol Officer Name Role Phone Mallorie Draper Primary Care Provider [phone] Transplant Episode Liver Recipient [facility] ([place], [place]) - [facility] Organ Received: Liver Transplanted on 09/07/2001 Marked as Active Follow-up on 09/07/2001 Liver CoordinatorMonique Capps RN Phone: N/A Fax: N/A Email: N/A [place] Organ Diagnosis Organ Primary Contributory Liver Cirrhosis: [...] N/A N/A N/A Dex Charlton Referring Physician [phone] N/A Eveline Calderon MD Colliery Clerk [phone] [email or web address] Events Post-Transplant Pre-Transplant Admitted: 08/22/2001 Referred: 12/17/2000 Transplanted: 09/07/2001 Evaluation began: 1 Discharged: 12/20/2001 Committee: 07/02/2001 Center waitlisted: 1 Appointments (02/07/2025 - 04/09/2025) When With Visit Type Description 03/03/2025 Transplant - Calderon, S Follow Up Liver replaced by transplant (HCC); Immunosuppressed status (HCC)
--- OUTSIDE RECORDS SUMMARY | 2025-03-10 17:13 | XMS_ITS | Encounter Summary ---
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 Dr. Calderon recommended that she meets with a climate change analyst, pt [facility] [place] documented in this encounter Plan of Treatment Upcoming Encounters Date Type Department Care Team (Late st Contact Info) Description 03/02/2026 11:30 AM EDT Follow-Up [facility] Transplant Services [address] [place], [place] [phone] Eveline Calderon MD [address] [place] [address] documented as of this encounter Visit Diagnoses Diagnosis Liver replaced by transplant (HCC) Liver replaced by transplant documented in this encounter Additional Health Concerns Infection Onset Date 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
--- OUTSIDE RECORDS SUMMARY | 2025-03-10 17:13 | XMS_ITS | Patient Health Record ---
Author Organization [facility] Address [address] [place] [address] Care Team Providers Care Configuration Analyst Name Role Phone Nahum Fernandez MD Primary Care Provider Dex Live Unavailable [phone] Reason For Referral No Information Medications Medication SIG (Take, Route, Frequency, Duration) Notes Start Date End Date Status Vitamin D (Ergocalciferol) 52690 UNIT TAKE 1 CAPSULE EVERY 2 WEEKS. [...] HCl 0.3 MG TAKE 1 TABLET BY [facility] EVERY DAY Oral for 90 [...] HCl 500 MG TAKE 1 TABLET BY [facility] TWICE A DAY WITH MEALS [...] capsule Orally Onc e a day Active Immunizations Vaccine Route Administration Date Status Comme nts Influenza Unknown 09/16/2015 Administered Pneumococcal Unknown 02/14/2016 Administered Pneumococcal Unknown 08/20/2014 Administered Problems Problem Type SNOMED Code ICD Code Onset Dates Problem Status W/U Status Risk Notes Problem 354474526 Encounter for screening for malignant neoplasm of colon (Z12.11) Active confirmed Problem Screening for malignant neoplasm of rectum (607246504) Encounter for screening for malignant neoplasm of rectum (Z12.12) Active confirmed Problem 489791571 Long-term use of aspirin therapy (Z79.82) Active confirmed Problem 698850730 Hx of cirrhosis (Z87.19) Active confirmed Plan Of Treatment Future Test Test Name Order Date COLONOSCOPY 06/13/2016 Insurance Providers Payer Name Payer Address Payer Phone Subscriber Number Group Number Insured Name Patient Relationship to Insured Coverage Start Date Coverage End Date MEDICARE OF [place] [address] [place] [address] [id number] GILLES CHONG Self - patient is the insured MEDICAID OF [facility] [address] [place] [address] [phone] [id number] GILLES CHONG Self - patient is the insured Medical (General) History Medical History History ICD Code Screening colonoscopy in 03/05/2006-nega tive Cryptogenic cirrhosis with liver transpl ant in 08/26 IDDM Mental retardation Hypothyroidsm Hypertension Gout Basal cell ca on nose Denies [place],CVA,Lung disease,renal disease Hyperlipidemia Edema Surgical History Surgery Date(Month/Year) Liver transplant at [facility] 08/2001 Basal cell ca on nose
--- OUTSIDE RECORDS SUMMARY | 2025-03-10 17:13 | XMS_ITS | Encounter Summary ---
Author Organization [facility] Address [address] [place] [address] Care Team Providers Care Lockstitch Waistband Setter Name Role Phone Mallorie Draper Stephie Primary Care Provider [phone] Reason for Visit * Reason Comments Med Refill Encounter Details Date Type Department Care Team (Late Contact Info) Description 03/05/2025 Refill [facility] Transplant Services [address] [place] [address] Eveline Calderon MD [address] [place] [address] Liver replaced by transplant (HCC) Social History [...] Encounters Date Type Department Care Team (Late Contact Info) Description 03/02/2026 11:30 AM EDT Follow-Up [facility] Transplant Services [address] [place], [place] [phone] Eveline Calderon MD [address] [place], [place] [phone] documented as of this encounter Visit Diagnoses Diagnosis Liver replaced by transplant (HCC) Liver replaced by transplant documented in this encounter Additional Health Concerns Infection Onset Date Last Indicated 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
--- OUTSIDE RECORDS SUMMARY | 2025-03-10 17:13 | XMS_ITS | Encounter Summary ---
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 file documented as of this encounter Plan of Treatment Upcoming Encounters Date Type Department Care Team (Late st Contact Info) Description 03/02/2026 11:30 AM EDT Follow-Up [facility] [address] [place] [address], [place] [id number] Eveline Calderon MD [address] [place] [address] documented as of this encounter Visit Diagnoses Not on filedocumented in this encounter Additional Health Concerns Infection Onset Date Last Indicated 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
--- OUTSIDE RECORDS SUMMARY | 2025-03-10 17:13 | XMS_ITS | Continuity of Care Document ---
Author Organization [facility] Address [address] [facility] [address] [place] [address] Phone Care Team Providers Care Merchandiser Name Role Phone Pravin PENA, Aqib Unavailable Unavailable Allergies, Adverse Reactions, Alerts Substance Reaction Status Criticality piperacillin Active No Information peanut Active Low Medications Medication Instructions Dosage Effective Dates (start - stop) Status Comments acetaminophen 325 mg tablet take 2 tablet by oral route every 8 hours as needed 650 MG - Active Lantus U-100 Insulin 100 unit/mL subcutaneous solution use one vial as directed from ekit now - Active lisinopril 20 mg tablet take 1 tablet by oral route every day 20 MG - Active allopurinol 300 mg tablet TAKE 1 TABLET BY MOUTH DAILY. - Active diltiazem CD 180 mg capsule,extended release 24 hr TAKE (1) CAPSULE BY MOUTH DAILY - Active Vitamin D3 25 mcg (1,000 unit) tablet @@TAKE 1 TABLET BY MOUTH DAILY. - Active Tums 200 mg (as calcium carbonate 500 mg) chewable tablet CHEW 2 TABLETS BY MOUTH ONCE A DAY AFTER MEALS - Active Eliquis 5 mg tablet TAKE 1 TABLET BY MOUTH TWICE DAILY - Active magnesium 250 mg tablet take one tablet by oral route daily - Active scheduling metoprolol tartrate 25 mg tablet TAKE 1 TABLET BY MOUTH TWICE DAILY - Active repaglinide 1 mg tablet TAKE 1 TABLET BY MOUTH THREE TIMES A DAY 15 TO 30 MINUTES BEFORE MEALS. Mar-03-2025 - Active LEVOTHYROXINE 88 MCG TABLET TAKE 1 TABLET BY MOUTH DAILY. - Active Lantus Solostar U-100 Insulin 100 unit/mL (3 mL) subcutaneous pen Inject 37 units SQ once daily. - Active Free Style Ev Kit TRANSDERM use per endocrine orders-ODERED BY ENDO - Active FreeStyle Ev 2 Sensor kit APPLY TOPICALLY TO UPPER ARMS EVERY 14 DAYS. TO BE CHANGED BY JAIL. - Active Flintstones Gummies chewable tablet take two daily - Active Trulicity 4.5 mg/0.5 mL subcutaneous pen injector Inject 4.5mg once weekly on the same day. - Active 05/28/24: Dose increase mycophenolate mofetil 250 mg capsule Take 1 capsule by mouth twice daily. - Active ATORVASTATIN 40 MG TABLET TAKE 1 TABLET BY MOUTH DAILY - Active pen needle, diabetic 31 gauge x 3/16 use w/ BG checks - Active Prescr ibed by [facility] endo anastrozole 1 mg tablet take 1 tablet by oral route every day rx hem/onc - Active zoledronic acid 4 mg/100 mL in mannitol 5 %-water intravenous piggybck infuse 100 milliliter by intravenous route every 6 months rx by hem/onc - Active Fish Oil 1,000 mg (120 mg-180 mg) capsule take 1 capsule by oral route daily - Active FreeStyle Lite Strips use w/ BG check - Active Prescribed by [facility] endo Futuro Anti-Embolism Stockings 18-30mmhg apply to legs in the morning and take off in the evening - Active Astagraf XL 0.5 mg capsule,extended release take 1 capsule by oral route 2 times every day in the morning on an empty stomach, 1 hour before or 2 hours after a meal 0.5 MG - Active Prescribed by Dr. Kvng RiceStyle Ev 2 [place] use to read blood sugar QID - Active alcohol swabs use when checking BG levels - Active Advance Directives Directive Yes / No Effective Date File Name No Information Encounters Encounter Description Practice Location Reason(s) For Visit Diagnoses Date Provider [facility], [address] [address], [place], [place], [id number], tel:[phone] [place] No Information Feb- 5 Pravin Aqib. [address] [place], [place], [id number], [place]. tel:[phone] [facility], [address] [facility], [place], [place], [id number], [place] tel:[phone] [place] [facility] Information [facility] [address], [place], [place], [id number], [place]. tel:[phone] [facility], [address] [address], [place], [place], [id number], [place] tel:[phone] [place] No Information Feb-0 5 Mina Carlina. [address] [place], [place], [id number], [place]. tel:[phone] [facility], [address] [facility], [place], [place], [id number], [place] tel:[phone] [place] Acute Visit (chief complaint) Onychogryphosis Feb-0 5 Pravin Aqib. [address] [place], [place], [id number], [place]. tel:[phone] [facility], [address] [facility], [place], [place], [id number], [place] tel:[phone] [place] No Information Jan- 5 Pravin Aqib. [address] [place], [place], [address], [place]. tel:[phone] [facility], [address] [facility], [place], [place], [id number], [place] tel:[phone] [place] Disorder of the skin and subcutaneous tissue, unspecified Jan- 5 Tarun Steinberg. [address] [place], [place], [id number], [place]. tel:[phone] [facility], [address] [facility], [place], [place], [id number], [place] tel:[phone] [place] No Information Jan-0 3- 5 Pravin Aqib. [address] [place], [place], [id number], [place]. tel:[phone] [facility], [address], [place], [id number], [place] tel:[phone] [place] Acute Visit (chief complaint) Cough, unspecified type Dec-2 5 Pravin Aqib. [address] [place], [place], [id number], [place]. tel:[phone] [facility], [address] [facility], [place], [id number], [place] tel:[phone] [place] No Information 5 Pravin Aqib. [address] [place], [place], [id number], [place]. tel:[phone] [facility], [address] [facility], [place], [place], [id number], [place] tel:[phone] [place] No Information 0 5 Pravin Aqib. [address] [place], [place], [id number], [place]. tel:[phone] [facility], [address] [facility], [place], [place], [id number], [place] tel:[phone] [place] Follow-up (chief complaint) No Information - 5 Pravin Aqib. [address] [place], [place], [id number], [place]. tel:[phone] [facility], [address], [place], [place], [id number], [place] tel:[phone] [place] No Information 5 Pravin Aqib. [address], [place], [place], [id number], [place]. tel:[phone] [facility], [address] [facility] [address], [place], [place], [id number], [place] tel:[phone] [place] Encounter for rehabilitation evaluation 4 Gerald Yeh. [address] [place], [place], [id number]. tel:[phone] [facility], [address] [facility] [address] [facility], [place], [id number], [place] tel:[phone] [place] No Information 4 Pravin Aqib. [address], [place], [place], [id number], [place]. tel:[phone] [facility], [address], [place], [place], [id number], [place] tel:[phone] [place] Acute Visit (chief complaint) Viral URI with cough 4 Pravin Aqib. [address], [place], [place], [address], [place]. tel:[phone] [facility], [address] [facility] [address], [place], [place], [id number], [place] tel:[phone] [place] Semi-Annual (chief complaint) Disorder of the skin [...] unspecified type 4 Pravin Aqib. [address] [place], [address], [place]. tel:[phone] [facility], [address], [place], [place], [id number], [place] tel:[phone] [place] Encounter for nutritional assessment 4 Normyogesh Karen. [address] [facility] [place], [id number], [place]. tel:[phone] [facility], [address], [place], [place], [address], [place] tel:[phone] [place] Encounter for rehabilitation evaluation 4 Gerald Yeh. [address] [facility] [place], [place], [id number]. tel:[phone] [facility], [address], [place], [place], [id number], [place] tel:[phone] [place] Encounter for rehabilitation evaluation 4 Josh Hayes. [address] [place], [place], [id number], [place]. tel:[phone] [facility], [address], [place], [place], [address], [place] tel:[phone] [place] Acute Visit (chief complaint) HypomagnesemiaFacial skin lesion 4 Pravin Aqib. [address], [place], [place], [id number], [place]. tel:[phone] [facility], [address], [place], [place], [id number], [place] tel:[phone] [place] No Information Sep-2 - 4 Pravin Aqib. [address] [place], [place], [id number], [place]. tel:[phone] [facility], [address], [place], [place], [id number], [place] tel:[phone] [place] Follow-up (chief complaint) Hypomagnesemia Sep-1 4 Aileen Marysol. [address] [place], [place], [id number], [place]. tel:[phone] [facility], [address] [facility] [address] [facility], [place], [place], [id number], [place] tel:[phone] [place] Follow-up (chief complaint) Acquired absence of left breast and nippleLymphedema, not elsewhere classified Sep-0 4 Aileen Marysol. [address] [place], [place], [id number], [place]. tel:[phone] [facility], [address] [facility], [place], [place], [address], [place] tel:[phone] [place] medication (chief complaint) Hypomagnesemia Jun-0 4 Bhagavatula Ujjwala. [address] [place], [place], [id number], [place]. tel:[phone] [facility], [address], [place], [place], [id number], [place] tel:[phone] [place] No Information 4 Aileen Marysol. [address] [place], [place], [id number], [place]. tel:[phone] [facility], [address], [place], [id number], [place] tel:[phone] [place] No Information 4 Bhagavatula Ujjwala. [address] [place], [place], [address], [place]. tel:[phone] [facility], [address], [place], [place], [id number], [place] tel:[phone] [place] Type 2 diabetes mellitus with hyperglycemia, with long-term current use of insulinLong term (current) use of insulin Saroj-0 4 Pitsiladis Meli. [address] [place], [place], [id number], [place]. tel:[phone] [facility], [address], [place], [place], [id number], [place] tel:[phone] [place] Encounter for rehabilitation evaluation Apr- 4 Josh Hayes. [address] [place], [place], [address], [place]. tel:[phone] [facility], [address] [facility], [place], [id number], [place] tel:[phone] [place] No Information March- 4 Os Roxy. [address] [place], [place], [address], [place]. tel:[phone] [facility], [address], [place], [place], [id number], [place] tel:[phone] [place] No Information Feb- 4 Phyllis Woody. [address] [place], [address], [place]. tel:[phone] [facility], [address], [place], [place], [address], [place] tel:[phone] [place] Encounter for nutritional assessmentOther obesity Feb- 4 Normile Karen. [address] [place], [place], [address], [place]. tel:[phone] [facility], [address], [place], [place], [address], [place] tel:[phone] [place] No Information 4 Os Roxy. [address] [place], [place], [address], [place]. tel:[phone] [facility], [address] [facility] [address] [facility], [place], [place], [id number], tel:[phone] [place] Semi-Annual (chief complaint) Encounter for general adult medical examination without abnormal findingsCardiac arrhythmia, unspecified cardiac arrhythmia typeHyperlipidemia, unspecified hyperlipidemia typeType 2 diabetes mellitus with diabetic chronic kidney disease, unspecified CKD stage, unspecified whether ad terminal makeup operator insulin useCurrent use of insulinType 2 diabetes mellitus with diabetic peripheral angiopathy without gangrene, unspecified whether ad terminal makeup operator insulin useType 2 diabetes mellitus with diabetic polyneuropathy, unspecified whether chcf insulin use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Autoimmune thyroiditisPrimary hyperparathyroidismLiv er transplantedHypertensi ve chronic kidney disease with stage 1 through stage 4 chronic kidney disease, or unspecified chronic kidney diseaseStage 3a chronic kidney diseaseOsteopenia, unspecified locationCerebral palsy, unspecified typeEdema, unspecified typeInvasive ductal carcinoma of breast, female, leftInfiltrating ductal carcinoma of breast, rightImmunosuppressed status 4 Os Roxy. [address] [place], [place], [address], [place]. tel:[phone] [facility], [address] [facility], [place], [place], [address], [place] tel:[phone] [place] No Information 4 Os Roxy. [address] [place], [place], [address], [place]. tel:[phone] [facility], [address] [facility] [address] [facility], [place], [place], [id number], [place] tel:[phone] [place] Follow-up (chief complaint) Cerebral palsy, unspecified typeMalignant neoplasm of right female breast, unspecified estrogen receptor status, unspecified site of breast Jan- 4 Os Roxy. [address] [place], [place], [address], [place]. tel:[phone] [facility], [address] [facility] [address] [facility], [place], [place], [id number], [place] tel:[phone] [place] Hypertension, unspecified type Jan-2 0-202 4 Os Roxy. [address] [place], [place], [address], [place]. tel:[phone] [facility], [address] [facility], [place], [place], [id number], [place] tel:[phone] [place] SNF Admit (chief complaint) Type 2 diabetes mellitus with diabetic chronic kidney disease, unspecified CKD stage, unspecified whether chcf insulin useStage 3a chronic kidney diseaseEdema, unspecified typeImmunosuppressed statusHypertension, unspecified typeMalignant neoplasm of right female breast, unspecified estrogen receptor status, unspecified site of breast 4 Os Roxy. [address], [place], [place], [id number], [place]. tel:[phone] [facility], [address] [facility], [place], [place], [id number], [place] tel:[phone] [place] Malignant neoplasm o f unspecified site of unspecified female breast 4 Munir Retana. [address] [place], [address], [place]. tel:[phone] [facility], [address] [facility] [address] [facility], [place], [place], [id number], [place] tel:[phone] [place] Sebaceous cyst 4 Phyllis Woody. [address] [facility] [place], [id number], [place]. tel:[phone] [facility], [address] [facility] [address], [place], [place], [address], [place] tel:[phone] [place] Malignant neoplasm o f unspecified site of unspecified female breast 4 Os Roxy. [address], [place], [place], [address], [place]. tel:[phone] [facility], [address], [place], [place], [address], [place] tel:[phone] [place] Malignant neoplasm o f unspecified site of left female breast 4 Tarun Steinberg. 101 [facility] [place], [address], [place]. tel:[phone] [facility], [address], [place], [place], [id number], [place] tel:[phone] [place] Edema, unspecified type 3 Aileen Gregg. [address] [place], [place], [id number], [place]. tel:[phone] [facility], [address] [facility] [address] [facility], [place], [place], [address], [place] tel:[phone] [place] No Information 3 Os Rxoy. [address] [facility] [address], [place], [place], [address], [place]. tel:[phone] [facility], [address], [place], [place], [address], [place] tel:[phone] [place] Encounter for nutritional assessmentClass 1 obesity with serious comorbidity and body mass index (BMI) of 33.0 to 33.9 in adult, unspecified obesity typeBody mass index [BMI] 33.0-33.9, adult 3 Luis F Davidsona. [address] [facility] [address], [place], [place], [address], [place]. tel:[phone] [facility], [address], [place], [place], [address], [place] tel:[phone] [place] Malignant neoplasm o f unspecified site of left female breast 3 Munir Retana. [address] [facility] [place], [address], [place]. tel:[phone] [facility], [address], [place], [place], [address], [place] tel:[phone] [place] Semi-Annual (chief complaint) Type 2 diabetes mellitus with stage 2 chronic kidney disease, with long-term current use of insulinLong term (current) use of insulin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Autoimmune thyroiditisPrimary hyperparathyroidismHyp ertensive renal disease, stage 1 through stage 4 or unspecified chronic kidney diseaseLiver transplantedImmunosupp ressed statusCerebral palsy, unspecified type 3 Aileen Gregg. [address] [place], [place], [id number], [place]. tel:[phone] [facility], [address], [place], [place], [address], [place] tel:[phone] [place] Encounter for rehabilitation evaluation 3 Davian River. [address] [facility] [address], [place], [address]. tel:[phone] [facility], [address], [place], [place], [address], [place] tel:[phone] [place] Encounter for rehabilitation evaluation 3 Gerald Yeh. [address] [facility] [address] [place], [place], [address]. tel:[phone] [facility], [address], [place], [place], [address], [place] tel:[phone] [place] Type 2 diabetes mellitus with diabetic peripheral angiopathy without gangrene, with long-term current use of insulinLong term (current) use of insulin 3 No Information [facility], [address], [place], [place], [id number], [place] tel:[phone] [place] No Information 3 Os Roxy. [address] [facility] [place], [address], [place]. tel:[phone] [facility], [address] [facility], [place], [place], [id number], [place] tel:[phone] [place] F/U (chief complaint)S ebaceous Cyst (chief complaint) Hyperlipidemia, unspecified hyperlipidemia typeCurrent use of insulinChronic kidney disease due to diabetes mellitusStage 3a chronic kidney diseaseHypertensive renal disease, stage 1 through stage 4 or unspecified chronic kidney diseaseCerebral palsy, unspecified typeInvasive ductal carcinoma of breast, female, leftChronic gout without tophus, unspecified cause, unspecified siteImmunosuppressed status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Autoimmune thyroiditisSebaceous cyst Jul- 3 Ephraim Gomez. [address] [place], [address], [place]. tel:[phone] [facility], [address] [facility], [place], [place], [address], [place] tel:[phone] [place] Encounter for nutritional assessmentClass 1 obesity without serious comorbidity with body mass index (BMI) of 32.0 to 32.9 in adult, unspecified obesity typeBody mass index [BMI] 32.0-32.9, adult March-0 3 Normile Karen. [address] [place], [place], [address], [place]. tel:[phone] [facility], [address] [facility], [place], [place], [address], [place] tel:[phone] [place] No Information 3 Os Roxy. [address] [place], [place], [address], [place]. tel:[phone] [facility], [address] [facility] [address] [facility], [place], [place], [id number], [place] tel:[phone] [place] Semi-Annual (chief complaint) Cardiac arrhythmia, unspecified cardiac arrhythmia typeCerebral palsy, unspecified typeOsteopenia, unspecified locationPure hypercholesterolemiaCu rrent use of insulinStage 3a chronic kidney diseaseType 2 diabetes mellitus with diabetic chronic kidney disease, unspecified CKD stage, unspecified whether chcf insulin useType 2 diabetes mellitus with diabetic peripheral angiopathy without gangrene, unspecified whether ad terminal makeup operator insulin useType 2 diabetes, controlled, with neuropathyHypothyroidi sm due to Quinton's thyroiditisAutoimmune thyroiditisPrimary hyperparathyroidismHyp ertensive renal disease, stage 1 through stage 4 or unspecified chronic kidney diseaseInvasive ductal carcinoma of breast, female, leftLiver transplantedImmunosupp ressed status - 3 Os Roxy. [address] [facility] [place], [id number], [place]. tel:[phone] [facility], [address], [place], [place], [id number], [place] tel:[phone] [place] No Information 3 Os Roxy. [address] [facility] [place], [address], [place]. tel:[phone] [facility], [address], [place], [place], [address], [place] tel:[phone] [place] Oropharyngeal dysphagia Jan-2 3 Alysa Foster. [address] [place], [place], [id number], [place]. tel:[phone] [facility], [address], [place], [place], [address], [place] tel:[phone] [place] Oropharyngeal dysphagia Jan-2 0 3 Alyas Kristin. [address] [facility] [place], [address], [place]. tel:[phone] [facility], [address], [place], [place], [address], [place] tel:[phone] [place] Oropharyngeal dysphagia Jan- 3 Alysa Foster. [address] [place], [place], [id number], [place]. tel:[phone] [facility], [address], [place], [place], [address], [place] tel:[phone] [place] No Information Mar-0 3 Os Roxy. [address] [place], [place], [address], [place]. tel:[phone] [facility], [address] [facility] [address] [facility], [place], [place], [address], [place] tel:[phone] [place] Oropharyngeal dysphagia Mar-0 2 3 Alysa Foster. [address] [place], [address], [place]. tel:[phone] [facility], [address] [facility] [address] [facility], [place], [place], [address], [place] tel:[phone] [place] Oropharyngeal dysphagia b-1 3 Alysa Foster. [address] [facility] [place], [address], [place]. tel:[phone] [facility], [address] [facility] [facility], [place], [address], [place] tel:[phone] [place] Dysphagia, unspecifi ed typeOther dysphagia b0 3 Donaldsaad Foster. [address] [facility] [address], [place], [place], [address], [place]. tel:[phone] [facility], [address] [facility] [facility] [address] [place] [address], [id number], [place] tel:[phone] [place] Non-recurrent abdominal hernia without obstruction or gangrene, unspecified hernia type b-0 3 Os Roxy. [address] [facility] [place], [id number], [place]. tel:[phone] [facility], [address] [facility] [address] [facility], [place], [place], [id number], [place] tel:[phone] [place] [facility] Evaluation (chief complaint)P ost Hospital Evaluation (chief complaint) Cerebral palsy, unspecified typeLiver transplantedStage 3a chronic kidney disease b- 3 Os Roxy. [address], [place], [place], [id number], [place]. tel:[phone] [facility], [address], [place], [place], [id number], [place] tel:[phone] [place] No Information 3 No Information [facility], [address] [facility] [address], [place], [place], [id number], [place] tel:[phone] [place] Dysphagia, unspecifi ed type 3 No Information [facility], [address] [facility] [address], [place], [place], [id number], [place] tel:[phone] [place] Difficulty in walkin g, not elsewhere classified 3 [place]. 101 [facility] [address], [place], [address]. tel:[phone] [facility], [address] [facility] [address], [place], [place], [id number], [place] tel:[phone] [place] [facility] DC (chief complaint) Type 2 diabetes mellitus with diabetic chronic kidney disease, unspecified CKD stage, unspecified whether ad terminal makeup operator insulin useStage 3a chronic kidney diseaseLiver transplantedAbdominal hernia without obstruction and without gangrene, recurrence not specified, unspecified hernia typeImmunosuppressed statusCerebral palsy, unspecified type 3 Deep Morales. [address] [place], [id number], [place]. tel:[phone] [facility], [address], [place], [place], [id number], [place] tel:[phone] [place] [facility] ADMIT (chief complaint) Non-recurrent abdominal hernia with obstruction without gangrene, unspecified hernia typeLiver transplantedImmunosupp ressed statusType 2 diabetes mellitus with diabetic chronic kidney disease, unspecified CKD stage, unspecified whether chcf insulin useCardiac arrhythmia, unspecified cardiac arrhythmia typeLeukocytosis, unspecified type 3 Deep Morales. [address], [place], [place], [id number], [place]. tel:[phone] [facility], [address] [facility] [address] [facility], [place], [place], [id number], [place] tel:[phone] [place] No Information 3 Os Roxy. [address] [place], [place], [id number], [place]. tel:[phone] [facility], 1 [facility], [place], [place], [id number], [place] tel:[phone] [place] Encounter for rehabilitation evaluation 2 [place]. [address], [place], [address]. tel:[phone] [facility], 1 [facility], [place], [place], [id number], [place] tel:[phone] [place] Encounter for rehabilitation evaluationAlteration in performance of activities of daily livingMild cognitive impairment, so stated 2 Gerald Kearnsah Beth. [address] [facility] [address] [place], [place], [id number]. tel:[phone] [facility], 1 [facility], [place], [place], [id number], [place] tel:[phone] [place] Encounter for nutritional assessmentExcessive carbohydrate intakeDeficiency of other specified nutrient elementsOther obesity 2 Normile Karen. [address], [place], [place], [id number], [place]. tel:[phone] [facility], 1 [facility], [place], [place], [id number], [place] tel:[phone] [place] Hypertensive chronic kidney disease with stage 1 through stage 4 chronic kidney disease, or unspecified chronic kidney diseaseHyperlipidemia, unspecified hyperlipidemia typeType 2 diabetes mellitus with diabetic chronic kidney disease, unspecified CKD stage, unspecified whether chcf insulin useCurrent use of insulin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Autoimmune thyroiditisPrimary hyperparathyroidismSta ge 3a chronic kidney diseaseImmunosuppresse d statusLiver transplantedCerebral palsy, unspecified typeHX: breast cancerDiabetes mellitus with peripheral vascular diseaseType 2 diabetes, controlled, with neuropathy 2 Os Roxy. [address] [place], [place], [id number], [place]. tel:[phone] [facility], [address], [place], [place], [id number], [place] tel:[phone] [place] No Information 2 Os Roxy. [address] [place], [place], [id number], [place]. tel:[phone] [facility], [address], [place], [place], [id number], [place] tel:[phone] [place] PHV (chief complaint) HerniaLiver transplantedHistory of small bowel obstruction 2 Os Roxy. [address] [place], [place], [id number], [place]. tel:[phone] [facility], [address], [place], [place], [id number], [place] tel:[phone] [place] Liver transplantedHernia 2 No Information [facility], [address], [place], [place], [id number], [place] tel:[phone] [place] No Information 2 Os Roxy. [address] [place], [place], [id number], [place]. tel:[phone] [facility], [address], [place], [place], [id number], [place] tel:[phone] [place] No Information 2 Os Roxy. [address] [place], [place], [id number], [place]. tel:[phone] [facility], [address], [place], [place], [id number], [place] tel:[phone] [place] Hypertension, unspecified type 2 No Information [facility], [address] [address], [place], [place], [id number], [place] tel:[phone] [place] Encounter for rehabilitation evaluationAlteration in performance of activities of daily livingMild cognitive impairment, so stated 2 Gerald Kearnsah Beth. [address] [place], [place], [id number]. tel:[phone] [facility], [address] [address], [place], [place], [id number], [place] tel:[phone] [place] Encounter for nutritional assessmentAbnormal weight gain 2 Normile Karen. [address], [place], [place], [id number], [place]. tel:[phone] [facility], 1 [facility], [place], [place], [id number], [place] tel:[phone] [place] Semiannual (chief complaint) Hypertensive chronic kidney disease with stage 1 through stage 4 chronic kidney disease, or unspecified chronic kidney diseaseHyperlipidemia, unspecified hyperlipidemia typeCurrent use of insulin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Autoimmune thyroiditisPrimary hyperparathyroidismLiv er transplantedStage 3a chronic kidney diseaseHx of left mastectomyImmunosuppre ssed statusCerebral palsy, unspecified type 2 Os Roxy. [address], [place], [place], [id number], [place]. tel:[phone] [facility], [address] [address], [place], [place], [id number], [place] tel:[phone] [place] Port-A-Cath in place Hx of left mastectomy 2 Os Roxy. [address], [place], [place], [id number], [place]. tel:[phone] [facility], [address], [place], [place], [id number], [place] tel:[phone] [place] Liver transplanted 2 Os Roxy. [address] [place], [id number], [place]. tel:[phone] [facility], [address], [place], [place], [id number], [place] tel:[phone] [place] No Information 1 No Information [facility], [address], [place], [place], [id number], [place] tel:[phone] [place] Type 2 diabetes mellitus without complication, unspecified whether ad terminal makeup operator insulin use 1 Os Roxy. [address], [place], [place], [id number], [place]. tel:[phone] [facility], [address], [place], [place], [id number], [place] tel:[phone] [place] Encounter for nutritional assessmentDiabetes education, encounter for 1 Sara Pool. [address], [place], [address]. tel:[phone] [facility], [address] [facility] [address] [facility], [place], [place], [id number], [place] tel:[phone] [place] Encounter for rehabilitation evaluation 1 [place]. [address], [place], [address]. tel:[phone] [facility], [address], [place], [place], [id number], [place] tel:[phone] [place] Encounter for rehabilitation evaluationMild cognitive impairment, so statedAlteration in performance of activities of daily living 1 Gerald Yeh. 101 [facility] [address] [place], [place], [id number]. tel:[phone] [facility], [address] [place], [place], [id number], tel:[phone] [place] PEE (chief complaint) Encounter for general adult medical examination without abnormal findingsEncounter for screening for respiratory tuberculosisHypertensi on, unspecified typeSBE (subacute bacterial endocarditis) prophylaxis candidateCardiac arrhythmia, unspecified cardiac arrhythmia typeHyperlipidemia, unspecified hyperlipidemia typeType 2 diabetes mellitus without complication, unspecified whether ad terminal makeup operator insulin useCurrent use of insulin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Autoimmune thyroiditisPrimary hyperparathyroidismVit campo D deficiencyHx of tracheostomyLiver transplantedHX: breast cancerHx of left mastectomyPersonal history of other malignant neoplasm of skinImmunosuppressed statusGout, unspecified cause, unspecified chronicity, unspecified siteOsteopenia, unspecified locationCerebral palsy, unspecified typeEdema, unspecified type 1 Os Roxy. [address] [place], [place], [id number], [place]. tel:[phone] [facility], [facility] [address] [place] [address], [id number], [place] tel:[phone] [place] HX: breast cancerCardiac arrhythmia, unspecified cardiac arrhythmia type 1 Sara Pool. [address] [place], [address]. tel:[phone] [facility], 1 [facility], [place], [place], [id number], [place] tel:[phone] [place] No Information 1 No Information [facility], [address] [facility] [address] [place] [address], [id number], [place] tel:[phone] [place] Intake (chief complaint) Encounter for general adult medical examination without abnormal findingsEncounter for screening for respiratory tuberculosis 1 No Information Family History Family Member Type Diagnosis Age [...] er Payers Payer name Insurance type Covered democrat ID Authormikhaila tiniurka(s) [employer] 16 [id number] [employer] 16 [id number] [employer] 16 [id number] [employer] 16 [id number] [employer] 16 [id number] [employer] 16 [id number] Social History Type Description Quantity Date Captured Comments Sex Female Smoking Status No Information Vital Signs Date / Time: Height Weight BMI Pulse Rate Blood Pressure Temperature Respiratory Rate Body Surface Area Head Circumference Head Circ. Percentile Wt./John. Percentile BMI percentile Pulse Ox Inhaled Ox 5:52 PM 89 /min 132/80 mm[Hg] 97.90 F 17 /min 95 % Chief Complaint And Reason For Visit No Information Plan Of Treatment Date Type Action Status Referral Ordered: Referrals: Occupational Therapy ordered Referral Ordered: Dentistry (related to Encounter for general adult medical examination without abnormal findings) ordered Referral Ordered: Referrals: Ophthalmology. Evaluate and treat Appointment date/timeframe: 04/27/2025 ordered Referral Ordered: Referrals: Dentistry. Evaluate and [...] date/timeframe: 11/28/2021 ordered Appointment Seema David BOOKED Appointment Seema David BOOKED Future Order: Lab Order MAGNESIU M ([id number]), Sent on: Sent Future Order: Lab Order BASIC ME TABOLIC PANEL ([id number]), Sent on: Sent Future Order: Lab Order MAGNESIU M ([id number]), Ordered on: Ordered Future Order: Lab Order BASIC ME TABOLIC PANEL ([id number]), Ordered on: Ordered Future Order: Radiology Order Zheng ne density study (by DEXA); axial skeleton (e.g., hips, pelvis, spine) ([id number]), Ordered on: Ordered Future Order: Radiology Order Ma mmogram (Screen); Bilat, 2-view study of each breast, incl computer-aided detection when performed ([id number]), Ordered on: Ordered History Of Present Illness Encounter Date Complaint History Of Prese nt Illness Acute Visit Seema is a 75 yea rs old female who was seen in the clinic for a follow up visit. Pt has thick toe nails that had to be debrided, burred and cut in the clinic. Pt tolerated the procedure well and has no complaints or concerns at this time. No other acute complaints or concerns. Acute Visit Seema is a 69 yea rs old female who was seen for an acute visit at the [facility]. She was seen and evaluated for a cough. She has been having a dry cough for a few days. She denies any fevers, chills, nausea, vomiting or any other symptoms at this time. No recent travel or no known sick contacts. Follow-up Encounter create d in error Acute [...] had been seen in her room at [facility].There have been no ER visits, hospital admissions, or SNF stays in the last 6 months. Diagnoses Reviewed.-No new diagnosesReferrals reviewed.Consults: w/in the last year-Dental: no dentures in place, referral made-Podiatry: cristy Gonzalez q3 months-Vision: Dr. Leiva; order in place-Endocrinology: [facility] 09/25/23-no changes made-Hem/Onc: [facility] 02/22/24-post right masectomy; med changes made; DEXA ordered-Surgery: [facility] 02/21/24-post right masectomy-Dermatology: referral in for f/u on sebacious cyst scheduled for 11/13/24-Liver transplant GI: [facility] liver clinic Dr. Jung 02/05/24: have not [...] daily x4 days. will re-eval labs on Guilherme. Confirmed with pharmacy they will deliver this today. Semi-Annual Comments: Seema clemons s a 68 year old female who has been enrolled in the PACE program since 09/2021 and is being seen for their semiannual exam.Patient had been seen in her room at [facility].Diagnoses Reviewed.-No new diagnosesReferrals reviewed.Consults: w/in the last year-Dental: no dentures in place, referral made-Podiatry: cristy Gonzalez q3 months-Vision: Dr. Leiva; order in place-Endocrinology: [facility] 09/25/23-no changes made-Hem/Onc: [facility] 02/22/24-post right masectomy; med changes made; DEXA ordered-Surgery: [facility] 02/21/24-post right masectomy-Dermatology: referral in for f/u on sebacious cyst scheduled for 11/13/24-Liver transplant GI: [facility] liver clinic Dr. Jung 02/05/24: have not [...] All questions were answered at this time. Follow-up Comments: Seema clemons s a 68 year old female who is being seen today for a SNF admission to [facility].Ppt currently lives at [facility]: 02/05/24-02/08/24CC: scheduled right mastectomy w/ Dr. GusmanHospital course summery:-Course complicated by hypotension, MARIA ESTHER, uncontrolled hyperglycemia and subsequently uncontrolled blood pressure which resolved. Discharged to rehab for further assist w/ ALEX drain management and insulin. Right breast cancers/p right mastectomy and sentinel lymph node biopsy on of L breast cancer treated with simple mastectomy and chemotherapy, now with right breast cancer.SNF: [facility] 02/08/24-02/14/24ospital medications reviewed. Updated EMR.SNF summery: no significant medical information during SNF stay. Ppt required SNF for drain and insulin management. F/u visits:-PCP -Nan Gusman (surgeon)Today:-Ppt reports she feels well and is adjusting back at [facility]. No concerns at this time. Incision site w/o concerns for infection. ALEX drains had been emptied by [facility] prior to my arrival per ppt. BP 132/92. Stable at this time- would continue current medication regimen. SNF Admit Seema is a 68 yea r old female who is being seen today for a SNF admission to [facility].Ppt currently lives at [facility]: 02/05/24-02/08/24CC: scheduled right mastectomy w/ Dr. [...] service. would be discharged with ALEX drain.SNF: [facility] 02/08/24-TB02/08/24: Hospital medications reviewed.Updated EMR.Started:-Tamoxifen 20mg daily -Multivitamin 1 chew wxpti-Wpeme-0 Polyunsaturated Fatty Acids 1000mg daily Changed:-Insulin Lispro [...] measuring about 100cc eachPlan:-Can return back to [facility] after ALEX drains removed and ppt is medically stable-Monitor weekly labsReviewed plan w/ nursing at SNF. Semi-Annual Patient is a 68 year old female who has been enrolled in the PACE program since 09/2021 and is being seen for their semi annual exam. She lives at [facility] and comes to the PACE site [...] Reviewed.-No new diagnosesReferrals reviewed.Consults:-Liver transplant physician (GI): [facility] liver clinic, Dr. Jung- last seen 09/2022 for s/p liver transplant for cruptogenic cirrhosis. Missing meds since the spring, urgent referral to GI.-Law Professor: 10/2022- [facility]- no changes-Oncology: [facility] Dr. Coto- Continue tamoxifen for a total of at least 5 years. Mammogram due in September (oncology schedule). 2000/breast cancer stage II-III of left breast s/p masectomy w/ completed chemo on tamoxifin-continuing to take at this time for prophylaxis. -Endocrinology: [facility] endocrine- currently on numerous medications r/t DM. Last seen 2Recommended increase the 75/25 in AM to 28 units.-Dermatology: [facility] (previously doing yearly skin checks)Vision: Dr. Leiva, sees regularly.Dental: no dentures in place, referral made. Podiatry: [facility] podiatry.Screenings: Continuing to screen-Mammogram: 10/10/2022, yearly [...] restarted her medications. Sebaceous Cyst F/U Comments: Left p osterior popliteal space with dry open sebaceous cystNo periwound erythemaJane brought it up as something that has been bothering her. She has not pain in the area. Comments: Being seen in follow up as she is starting with a new [facility] service and she needs provider visit. She lives at an [facility].Requires [facility] services for insulin administration. Her FSBS has been running in the mid 100s. She uses a CGM and self monitors. Comments: Seema rogers a 67 year old female who has been enrolled in the PACE program since 09/2021 and is being seen for their semiannual exam.Patient had been seen in her room at [facility].Diagnoses Reviewed.-No new diagnosesReferrals reviewed.Consults:-Liver transplant physician (GI): [facility] liver clinic, Dr. Jung- last seen 09/2022 for s/p liver transplant for cruptogenic cirrosis 2000/breast cancer stage II-III of left breast s/p masectomy w/ completed chemo on tamoxifin-continuing to take at this time for prophylaxis. 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 Coto- Continue tamoxifen for a total of at least 5 years. Mammogram due in September (oncology schedule). Return in 6 months for f/u.-Endocrinology: [facility] endocrine- currently on numerous medications r/t DM. Last seen ecommended increase the 75/25 in AM to 28 units.-Dermatology: [facility] (previously doing yearly skin checks)Vision: Dr. Leiva, sees regularly.Dental: no dentures in place, referral made. Podiatry: [facility] podiatry.Screenings: Continuing to screen-Mammogram: 10/10/2022, yearly [...] to stay healthy Semi-Annual Post Hospital Evaluation Seema is a 67 year old female who is being seen today for a PHV. [facility] 12/26/22-12/29/22Dx: MARIA ESTHER and UTI-Prior to admission ppt was hypotensive and labs were ordered showing a GFR 14 and creat of 3.51. Ppt is a liver transplant ppt (2000) and has been following Dr. Calderon at [facility]. Discussed lab findings and they advised to send to [email or web address] Ppt did have a recent hernia repair in November at [facility] [[email or web address]] with complications including hemmorhagic shock and was treated for aspiration pneumonia. MARIA ESTHER was thought to be ATN in the setting of recent adverse reaction to zosyn. Ppt received IVF where creat improved to 1.5 upon discharge. Started on cipro IV on 12/27 culture negative. Discharged home to [facility].Med changes:-d/c'd clonidine -d/c'd lasix-d/c'd lisinopril-d/c'd metoprolol succinate-started metoprolol tartrate 25mg BID-resume cellcept (prescribed by Dr. Molinaday:-Ppt reports feeling better . Negative ROS. No complaints at this time. BP stable 124/82.Plan: -order CBC and BMP for in 1 week-med changes updated-appt with Dr. Calderon on 01/04/23 Post Hospital Evaluation [facility] SEEMA DAVID [facility] SUMMARY Patient encounter date 12/20/22DC date 12/21/22[facility] on 11/29 for robotic repair of large [...] in the transplant clinic. --MED CHANGES @ [facility] [[email or web address]]Cellcept HELDPrograf 0.5mg BID continued Zestril 5mg QD [...] and dc order placed in chart APPOINTMENTS01/04/23 [facility] [[email or web address]] liver transplant [id number] 98.4HR 8602 96ROSNo N V F Cno [...] edema or drainage. SNF ADMIT SEEMA DAVID [facility] ADMITHPIfrom [email or web address] on 11/29 for robotic repair of large [...] the transplant clinic. MED CHANGES--Added:Cipro 500mg BID h6aEsldtudkljl 100mg BID g9w--Anoeccb:Cellcept HELDPrograf 0.5mg BID --[id number]/82RR 16T 99, recheck 97.8HR 86 palp02 96%ROSNo [...] clemons s a 66yo female resented to [facility] ED with less than 1 day of abdominal pain, nausea, and two episodes of emesis with concern for high-grade SBO at the level of her ventral hernia. She was subsequently transferred to [facility] d/t her history of liver transplant and the complexity of her ventral hernia.Upon arrival to [facility] her abdominal pain had resolved, and on exam had no tenderness to palpation, non-peritonitic. NGT was placed at [facility], decompressed overnight. Passing flatus. Also had a UA positive for infection. 1 dose of ceftriaxone and immunosuppressive medication held for a day. Tolerating the advancement in her diet. Had a BM. Deemed stable for discharge. Med changes: clonidine 0.2mg (previously 0.3mg)Today: Ppt appears comfortable has no problems and is "all better now . ROS negative.Plan: family requesting a follow up with [facility] GI as pt had been following (order in place)-Chuck (brother) reports [facility] appt is for 09/19/22 at 9:30a. No other concerns at this time. PHV Comments: Seema clemons s a 66 year old female who has been enrolled in the PACE program since 09/2021 and is being seen for their semiannual exam.Patient had been seen in her room at [facility].There have been no hospitalizations, SNF admission and/or ER visits in the last six months.CC: no concerns reported from pt nor brother/HCP Chuck.Diagnoses Reviewed.-No new diagnosesConsults:-Liver transplant physician (GI): [facility] liver clinic, Dr. Jung- last seen 09/2021 for s/p liver transplant for cruptogenic cirrosis 2000/breast cancer stage II-III of left breast s/p masectomy w/ completed chemo on tamoxifin-continuing to take at this time for prophylaxis. Follow up in 1 year (09/2022).-Law Professor: [facility] Dr. Blackman- Will consider changing over to [facility] practices once they determine the need for eliquis as they have been monitoring for some time. -Oncology: [facility] Dr. Coto- Discussed w/ pt, would like to keep as they have her currently on Tamoxifen-Endocrinology: [facility] endocrine- currently on numerous medications r/t DM. Last seen 02/10/22. Recommended starting a freestyle ev which has been ordered for better BS monitoring. -Dermatology: [facility]- had been following yearly for skin survalience s/p basal cell carcinoma. Had discussed keeping their upcoming appt in October and would then see [facility] derm as needed- no appt in chartVision: Dr. Leiva, sees regularly.Dental: no dentures in place, referral made. Podiatry: [facility] podiatry.Screenings: Continuing to screen-Mammogram: 10/04/21, yearly [...] enrollment exam.She currently is a resident at [facility]. Patient and brother/HCP, Chuck, have no concerns at this time. Diagnoses reviewed.Medications reviewed.Advance Directives discussed- pt and family is unsure at this time, would like to talk to all family members before final decision. Conversation started. -Liver transplant physician: [facility] liver clinic, Dr. Jung- sees regularly. -Law Professor: [facility] Dr. Blackman- currently pt is on a holter monitor, city manager determining if she should remain on eliquis. She is scheduled to see him 10/11/21. Will consider changing over to [facility] practices once they determine the need for eliquis as they have been monitoring for some time. -Oncology: [facility] Dr. Coto- Discussed w/ pt, would like to keep as they have her currently on Tamoxifen-Endocrinology: [facility] endocrine- currently on numerous medications r/t DM. Will put out a referral to [facility] endo. -Dermatology: [facility]- had been following yearly for skin survalience s/p basal cell carcinoma. Discussed keeping their upcoming appt in October and would then see [facility] derm as needed. Vision: Dr. Leiva, sees regularly.Dental: no dentures in place, referral made. Podiatry: will be transitioning to [facility] podiatry.Mammogram: 10/04/21, yearly mammograms.Bone density: last in 2019, scheduled every other year (due 2021)Colonoscopy: 2015, next due in 10 years (2025)WMM: Being able to care for self at current functional level. PEE Intake Very pleasant wo man, accompanied by her [id number], brother Chuck and insurance case manager from behavioral health network. The patient apparently had intake in February however decision was made to delay proceeding due to living circumstances/roommate. The roommate has unfortunately moved out due to illness and the patient is now at the head of the waiting list for [facility] assisted living.We regrettably have virtually no medical records. There are a number of notes/lists that were printed out from the [facility] system however, no PCP records nor records from any of the subspecialists that she sees ([facility] [facility]). Interestingly, the family had no awareness of [...] dysphagia. Hearing is fairly good. She sees aids nurse, the exact extent of any vision impairment [...] at the very least:Liver transplant physician at [facility] (Dr. Calderon)Indicated that the health information manager (Dr. Carlos) is in networkDr. Faizan Leiva, her aids nurse is in networkI explained that if needed oncology service (likely needed as she is on maintenance tamoxifen), endocrinology (very complicated regimen), GI, surgery, cardiology would likely be transitioned to [facility] practice. I explained that this helps maintain continuity of care and allows us access to records. I indicated that [facility] it is our preferred hospital and that we strongly encourage its use somewhat negating any benefit of continuity with previous providers as they do not go to [facility]. I did not specifically address the network firewall engineer. They are aware that there is a network firewall engineer that goes to [facility] although I am unclear if it someone we are affiliated with.Medication, which is extensive, was updated via the list that the brother provided.Problem list was updated to the best of my ability based upon the limited information available to us. Suggestion that there was a bone density done in 2019. I cannot explicitly know why she is seeing a health information manager. The city manager seems to surround the issue of the arrhythmia, again presumed atrial fibrillation. The role of the tapper helper is unclear. The general surgeon performed the [...] living assumes management of her medications via [facility] Instructions Date Instruction Additional Infor hetal Patient with onychau xis of the toes of both feetThick toenails in all toes of the feetNails burred, debrided and cutUtilized Dremel with positive effectWill need to come back to the clinic for another roundWill continue to monitor Related to Onychogryphosis Patient with a dry c ough for the last few daysNo known sick contacts and no other symptomsSymptomatic management at this timeCough is mild and no antitussives at this timeWill continue to monitor Related to Cough, unspecified type Patient had Atrial F ibrillation during chemotherapySince [...] ongoing Cont inues to follow up with [facility] Liver [facility]- Dr Olson continue to monitor [...] next visitWill continue to monitor Related to ad terminal makeup operator (current) use of insulin Patient with mixed [...] URI as multiple other participants at the [facility] have been sick with similar symptomsSymptomatic managementEncouraged [...] monthsscheduling daily Mg replacement8.9.24critical lab1.4 today at [id number] daily replacement sent recheck labs sunday Related to Hypomagnesemia critical lab1.4 toda y at [id number] daily replacement sent recheck labs sunday Related [...] I suspect they will be). Related to residential (current) use of insulin Followed by hem/oncP [...] Invasive ductal carcinoma of breast, female, left Ppt is on immunosupr ession medications d/t [...] months. - I will obtain records from [facility]. It is likely that she would be [...] symptoms suggestive today Related to Immunosuppressed status Chemotherapy was the first line of action; tried tamoxifin where they found in ineffective and was switched to anastrazoleBil masectomyHem/onc:RECOMMENDATIONS: - Vitamin D 1000iu once daily - Start anastrozole 1mg once daily. This should be continued for 7-10 years in her situation - Start zoledronic acid 4mg every 6 months. - I will obtain records from [facility]. It is likely that she would be [...] to Infiltrating ductal carcinoma of breast, right Uses compression sto cking, 1+ feet edemaCurrently on lasix. Related to Edema, unspecified type History of CP docume nted in preenrollment records. Currently not following neurologist or is on any medications. Brother reports she had CP since , she used to see somebody for developmental disability. She never required braces . Cognitive delay evident; invoked Related to Cerebral palsy, unspecified type CKD08/2023 GFR 64Avo id nephrotoxic [...] diabetes mellitus with diabetic polyneuropathy, unspecified whether chcf insulin use Continued to be foll ow by [facility] endocrinology primarily for diabetes. 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 08/2023: TSH w/ reflex 3.08Ordered TSHContinue levothyroxine Related to Autoimmune thyroiditis Currently takes mult ivitamin, tums, and vit D. 08/2023 calcium 8.810/2021 PTH 129Ordered vit D, and calcium level.Currently followed by endocrine primarily for diabetes.-No changes in regards to hyperpartathyroidism Related to Primary hyperparathyroidism Prograf ongoing [facility] s liver clinic (GI), Dr. Jung- had [...] kidney disease, unspecified CKD stage, unspecified whether ad terminal makeup operator insulin use Continue Humulog mix 75-25 Continue Trulicity Follows endocrineBG between 100-200 Related to Current use of insulin Followed by endocrin eContinue insulin01/29/24: A1C 8.2Decreased pulses. Shiny hairless guzman LE. -Continue statin Related to Type 2 diabetes mellitus with diabetic peripheral angiopathy without gangrene, unspecified whether chcf insulin use She is currently on eliquis and metoprolol for afib.Pt had afib during her chemotherapy tx per brother/HCP. [facility] had assessed ppt on 05/17/22 where they were going to continue the eliquis and metoprolol until they further review ppts holter and ECHO from [facility].No longer following cardiology regularlyToday: RRR Related to Cardiac arrhythmia, unspecified cardiac arrhythmia type 10/02/23 Total chol 2 67, HDL 42, TRI 467, Ratio 6.4, Non HDL 225, GLU 176-Continue LipitorLipid panel for semiMay consider increasing lipitor Related to Hyperlipidemia, unspecified hyperlipidemia type Ppt reports she feel s well and is adjusting back at [facility]. No concerns at this time. Incision site [...] never required braces . Cognitive delay evident; /2022 MOCA /2023 MOCA Related to Cerebral palsy, unspecified type Had period of hypote nsion which subsequently turned into hypertension. Would like to monitor BPs and if BPs remain elevated may implement their recommendations of adding clonidine 0.2mg daily Related to Hypertension, unspecified type 02/08/24 scheduled ri t mastectomy w/ Dr. GusmanVa Hospital course summery:-Course complicated by hypotension, MARIA ESTHER, [...] discharged with ALEX drain.Plan:-Can return back to [facility] after ALEX drains removed and ppt is [...] and compression Related to Edema, unspecified type Mar-18-2024 3/5/24: A1C 8.2Conti nue home medicationsGFR -02/05 33-02/07 60Avoid nephrotoxic medications Related to Type 2 diabetes mellitus with diabetic chronic kidney disease, unspecified CKD stage, unspecified whether ad terminal makeup operator insulin use GFR -02/05 33-02/07 60 Avoid [...] never required braces . Cognitive delay evident; idlessb38/2022 MOCA MOCA Related to Cerebral palsy, unspecified type Diltiazem 24 ER 180m g dailyMetoprololControlledeGFR 60s, stage 2 currently, has historically been stage 3a Related to Hypertensive renal disease, stage 1 through stage 4 or unspecified chronic kidney disease Prograf ongoing Cell cept held d/t leurkocytosis after surgery- [facility] Dr. Mcgee had f/u [...] today, cont insulin and trulicity Related to ad terminal makeup operator (current) use of insulin Left popliteal space [...] T4: 1.39-Continue levothyroxineContinued to be follow by [facility] endocrinology primarily for diabetes. 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 Related to Autoimmune thyroiditis Asymptomatic.Current ly taking allopurinol. Related to Chronic gout without tophus, unspecified cause, unspecified site Last seen by hem onc on 3Ppt being treated currently for active breast cancer [...] Invasive ductal carcinoma of breast, female, left History of CP docume nted in preenrollment records. Currently not following neurologist or is on any medications. Brother reports she had CP since , she used to see somebody for developmental disability. She never required braces . Cognitive delay evident; hdksakc61/2022 MOCA Related to Cerebral palsy, unspecified type Diltiazem 24 ER 180m g dailyMetoprololControlled Related to Hypertensive renal disease, stage 1 through stage 4 or unspecified chronic kidney disease 03/23/23 Creatinine/G FR 0.93/67[facility] 12/26/22-12/29/22Dx: MARIA ESTHER and UTI-Prior to [...] due to diabetes mellitus 03/23/23 Chol/Trig/HD L/LDL 157/241/41/834//22: Ratio 5.8, TC 167, HDL 29, LDL [...] d/t leurkocytosis after surgery- [facility]- had f/u [...] left BPs stable Being fol lowed by [facility] city manager: Dr. Blackman and was switched to [facility] city manager. -Currently taking clonidine, cardizem, lisinopril, and metoprolol Related to Hypertensive renal disease, stage 1 through stage 4 or unspecified chronic kidney disease Currently takes mult ivitamin, tums, and vit D. 08/2022 PTH 129, calcium 8.5Ordered vit D, and calcium level.Currently followed by endocrine primarily for diabetes.-No changes in regards to hyperpartathyroidism Related to Primary hyperparathyroidism 11/2022: TSH w/ refle x to T4: 1.39-Continue levothyroxineTSH ordered for semiContinued to be follow by [facility] endocrinology primarily for diabetes. 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 Related to Autoimmune thyroiditis Dose increased per e ndocrine.75/25 insulin: 28 units in the AM 20 units in PMA1C 8.5Abnormal monofiliment Related to Type 2 diabetes, controlled, with neuropathy A1C 10/2022: 8.5Rece nt increase in insulinDecreased pulses. Shiny hairless guzman LE. -Continue statin Related to Type 2 diabetes mellitus with diabetic peripheral angiopathy without gangrene, unspecified whether ad terminal makeup operator insulin use Dose increased per e ndocrine.75/25 insulin: 28 units in the AM 20 units in PMFollowed by [facility] endocrinology. She is on numerous medications r/t DM2 that are being managed by [facility] endo: repaglinide, tresiba, and [id number] 8.5Recent hospitalization 12/2022 showed labs were ordered showing a GFR 14 and creat of 3.51. MARIA ESTHER was thought to be ATN in the setting of recent adverse reaction to zosyn. Ppt received IVF where creat improved to 1.5 upon discharge. Related to Type 2 diabetes mellitus with diabetic chronic kidney disease, unspecified CKD stage, unspecified whether ad terminal makeup operator insulin use [facility] -12/29/22Dx: MARIA ESTHER and UTI-Prior to [...] 3a chronic kidney disease A1C 8.5Followed by [facility] endocrinology. She is on numerous medications r/t DM2 that are being managed by [facility] endo: repaglinide, tresiba, and [...] afib during her chemotherapy tx per brother/HCP. [facility] had assessed ppt on 05/17/22 where they were going to continue the eliquis and metoprolol until they further review ppts holter and ECHO from [facility]. May consider d/c'ing in the future. Today: RRR Related to Cardiac arrhythmia, unspecified cardiac arrhythmia type History of CP docume nted in preenrollment records. Currently not following neurologist or is on any medications. Brother reports she had CP since , she used to see somebody for developmental disability. She never required braces . Cognitive delay evident; tawnxiw61/2022 MOCA 17 Related to Cerebral palsy, unspecified type s/p surgical repaira bd incision CDI with staplesJP dremoved abd soft NT good bowel sounds (+)flauts/BMfollowup with surgeon in next 1-2 weeks no pain use pain PRNabd exam otherwise benign Related to Non-recurrent abdominal hernia without obstruction or gangrene, unspecified hernia type [facility] -12/29/22Dx: MARIA ESTHER and UTI-Prior to [...] never required braces . Cognitive delay evident; rfrwqua14/2021 MOCA 20/30 Related to Cerebral palsy, unspecified [...] was added to med list at [facility] not on prior to hospital per PCP Recordsppt will followup with PCP after dcmed regimen can be reassessed at that time Related to Type 2 diabetes mellitus with diabetic chronic kidney disease, unspecified CKD stage, unspecified whether chcf insulin use prograf ongoing cell cept held [...] kidney disease, unspecified CKD stage, unspecified whether chcf insulin use see 'liver transplanted' Related to [...] never required braces . Cognitive delay evident; woxozjn62/2021 MOCA 20/30 Related to Cerebral palsy, unspecified type Left mastectomy in .[facility] General Surgery: DCIS of [...] in 09/2022 Related to HX: breast cancer CKD: GFR- 39-Avoid n ephrotoxic medications Related to Stage 3a chronic kidney disease Hx of liver transpla nt, currently taking tacrolimus and mycophenolate prescribed by Dr. Calderon of [facility] [[email or web address]] liver transplant clinic. Referral made for f/u. Related to Immunosuppressed status [facility] liver clinic ( GI), Dr. 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 She will have labs drawn [id number] at [facility]. Plan: Follow up in 1 year- order in place Related to Liver transplanted Currently takes mult ivitamin, tums, and vit D. 09/2021 PTH 161, calcium 8.7Ordered vit D, and calcium level. Related to Primary hyperparathyroidism 03/24/22: Ratio 5.8, TC 167, HDL 29, LDL 98, TG 298-Increased lipitor based upon the above resultsLipid panel ordered for semi Related to Hyperlipidemia, unspecified hyperlipidemia type Endocrine: 08/23/22: Humalog 75/25 increased from 20 units bid to 24units in the AM and 20units in PM. Ppt is also on repaglinide and [id number] 02/2022: 8.5; reassess for semiCKD: GFR- 39-Avoid nephrotoxic medications Related to Type 2 diabetes mellitus with diabetic chronic kidney disease, unspecified CKD stage, unspecified whether chcf insulin use Endocrine: 08/23/22: Humalog 75/25 increased [...] thyroiditis BPs stable 126/82Bei ng followed by [facility] city manager: Dr. Blackman and was switched to [facility] city manager. -Currently taking clonidine, cardizem, lisinopril, and metoprolol Related to Hypertensive chronic kidney disease with stage 1 through stage 4 chronic kidney disease, or unspecified chronic kidney disease History of ventral a nd umbilical hernias.History of liver transplant at [facility], should follow up with them for evaluation of this hernia and any possible need for intervention now that it is clear she is not acutely obstructed. Related to Hernia [facility] liver clinic ( GI), Dr. Mcgee last seen 09/2021 for s/p liver transplant for cruptogenic cirrosis 2000/breast cancer stage II-III of left breast s/p masectomy w/ completed chemo on tamoxifinCurrently on Prograf of 0.5mg bid though may consider decreasing to daily if her creatinine trends upward. She will have labs drawn [id number] at [facility]. Plan: Follow up in 1 year. Related to Liver transplanted Presented to [facility] h less than 1 day of abdominal pain, nausea, and two episodes of emesis with radiographic concern for high-grade small bowel obstruction at the level of her ventral hernia. Given her history of liver transplant and the complexity of her ventral hernia, she was transferred to [facility] for further management. Upon arrival however, her abdominal pain had resolved, and on exam had no tenderness to palpation. She had an NGT that was placed at [place], allowed to decompress overnight. She continued to pass flatus. Her NGT was removed the following day. She subsequently had a bowel movement and was advanced to a regular diet. She tolerated solid food well without further pain. Related to History of small bowel obstruction History of ventral a nd umbilical hernias.History of liver transplant at [facility], should follow up with them for evaluation of this hernia and any possible need for intervention now that it is clear she is not acutely obstructed.Will f/u w/ [facility] GI Related to Hernia [facility] liver clinic ( GI), Dr. Mcgee last seen 09/2021 for s/p liver transplant for cruptogenic cirrosis 2000/breast cancer stage II-III of left breast s/p masectomy w/ completed chemo on tamoxifinCurrently on Prograf of 0.5mg bid though may consider decreasing to daily if her creatinine trends upward. She will have labs drawn [id number] at [facility]. Plan: Follow up in 1 year. Related to Liver transplanted BPs stableBeing foll owed by [facility] city manager: Dr. Blackman. May consider switching cardiologists (to [facility] provider). No recent visits since PEE.-Currently [...] She never required braces . 09/2021 MOCA Related to Cerebral palsy, unspecified type Hx of liver transpla nt, currently taking tacrolimus and mycophenolate prescribed by Dr. Calderon of [facility] [[email or web address]] liver transplant clinic. Related to Immunosuppressed status Pt has been followin g general surgery Dr. Aaron [facility] s/p mastectomy. She has been following up every 6 months per office. Discussed w/ HCP she should keep this last appt and then she should not need to keep following up. Related to Hx of left mastectomy 12/2021: GFR 49-Avoid nephrotoxic medications Related to Stage 3a chronic kidney disease [facility] liver clinic ( GI), Dr. 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 She will have labs drawn [id number] at [facility]. Plan: Follow up in 1 year. Related to Liver transplanted Currently takes mult ivitamin, tums, and vit D. 09/2021 PTH 161, calcium 8.7Ordered vit D, and calcium level. Related to Primary hyperparathyroidism Continued to be foll ow by [facility] endocrinology primarily for diabetes. 09/2021 TSH 2.06Ordered TSHContinue levothyroxine Related to Autoimmune thyroiditis Continued to be foll ow by [facility] endocrinology primarily for diabetes. 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 Last seen he is on numerous medications r/t DM2 that are being managed by [facility] endo: repaglinide, tresiba, and trulicityMost recent visit recommended a freestyle ev for better BS monitoring. This has been ordered. Related to Current use of insulin 10/06/21: TC 178, HD L 33, LDL 102, TG 320Currently taking lipitor Related to Hyperlipidemia, unspecified hyperlipidemia type BPs stableBeing foll owed by [facility] city manager: Dr. Blackman. May consider switching cardiologists (to [facility] provider). No recent visits since PEE.-Currently taking clonidine, cardizem, and metoprolol Related to Hypertensive chronic kidney disease with stage 1 through stage 4 chronic kidney disease, or unspecified chronic kidney disease Pt has been followin g general surgery Dr. Aaron [facility] s/p mastectomy. She has been following up every 6 months per office. Discussed w/ HCP she should keep this last appt and then she should not need to keep following up. Related to Hx of left mastectomy Port in chest from oncology Rela markus to Port-A-Cath in place Per preenrollment re cords and family. [facility] [[email or web address]], [address]. Currently seeing Dr. Calderon.Dr. Calderon prescribes and refills: fish oil, mycophenolate mofetil, and tacrolimusHCP reports best way to contact is through his RN Pau- [phone] Related to Liver transplanted 10/06/21: A1C: 7.2 Related to Ty pe 2 diabetes mellitus without complication, unspecified whether ad terminal makeup operator insulin use Hx of liver transpla nt, currently taking tacrolimus and mycophenolate prescribed by Dr. Calderon of [facility] [[email or web address]] liver transplant clinic. Related to Immunosuppressed status [...] and can follow most of our conversation.MOCA Related to Cerebral palsy, unspecified type Uses compression sto cking, 1+ trace edema in guzman ankles. Currently on lasix. 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 Follows [facility] every year for full body scan. [...] to contact is through his RN Pau- [phone] Related to Liver transplanted Occurred w/ liver tr ansplant in 2000. Remained in ICU for several weeks per HCP where she had a trach placed. Now removed. Related to Hx of tracheostomy Bone density exams p erformed every other year per HCP. Next scan due in 2021. Currently taking vitamin D.Vit D level ordered. Related to Vitamin D deficiency Follows [facility] endocrin ology.Currently takes multivitamin, tums, and vit D. Ordered vit D, PTH, and calcium level. Related to Primary hyperparathyroidism Followed by [facility] endo crinology. Referral made to [facility] endocrinology. Currently on levothyroxine: prescirbed by [facility] shellfish processing laborer. 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 Referral made to [facility] endocrinology. Currently on levothyroxine: prescirbed by [facility] shellfish processing laborer. Related to Autoimmune thyroiditis Normal monofilliment exam. No loss of protection, no ulcers or deformities. Pt checks feet regularly. Followed by [facility] endocrinology. Referral made to [facility] endocrinology. She is on numerous medications r/t DM2 that are being managed by [facility] endo: repaglinide, tresiba, and trulicity Related to Current use of insulin Normal monofilliment exam. No loss of protection, no ulcers or deformities. Pt checks feet regularly. Followed by [facility] endocrinology. Referral made to [facility] endocrinology. She is on numerous medications r/t DM2 that are being managed by [facility] endo: repaglinide, tresiba, and trulicity Related to Type 2 diabetes mellitus without complication, unspecified whether ad terminal makeup operator insulin use She is currently on eliquis and metoprolol for afib.Pt had afib during her chemotherapy tx per brother/HCP. He reported she no longer has had afib. RRR upon exam today. Cardiology appt on 10/11/2021 to determine the need for eliquis, holter monitor in place. Related to Cardiac arrhythmia, unspecified cardiac arrhythmia type BP stable today: 122 /74Being followed by [facility] city manager: Dr. Blackman. May consider switching cardiologists (to [facility] provider) after medication changes are completed. [...]
--- OUTSIDE RECORDS SUMMARY | 2025-03-10 17:13 | XMS_ITS | Referral Summary ---
Author Organization [facility] Address [address] [place] [address] Care Team Providers Care Software Designer Name Role Phone SukhwinderMallorie shelton Stephie Primary Care Provider [phone] Encounters Date Type Department Care Team Description 03/06/2025 Refill [facility] [address] [place] [address] Eveline Calderon MD Liver replaced by transplant (HCC) 03/05/2025 Telephone [facility] Trans[facility] [address] [place] [address]9021 Monique Capps RN 03/05/2025 Refill [facility] [address] [place] [address] 99[address] Eveline Calderon MD Liver replaced by transplant (HCC) 03/04/2025 Results Follow-Up [facility] Transplant Department [address] [place] [phone] Monique Capps RN 03/03/2025 11:00 AM EDT Follow-Up [facility] [address] [place] [address] Eveline Calderon MD Liver replaced by transplant (HCC); Immunosuppressed status (HCC) 02/05/2025 Refill [facility] [address] [place] [address] Eveline Calderon MD Liver replaced by transplant 01/08/2025 Refill [facility] [address] [place] [address] Eveline Calderon MD Liver replaced by transplant 12/11/2024 Refill [facility] [address] [place] [address] Eveline Calderon MD Liver replaced by transplant from Last 3 Months Allergies Active Allergy [...] a day. 09/12/20 Active FreeStyle Ev 2 [place] [facility] 07/13/20 22 Active calcium carbonate 400 mg calcium (1,000 mg) tablet,chewable Chew and swallow 1,000 mg by mouth. 05/17/20 22 Active OneTouch Verio Flex meter [facility] 01/25/20 Active omega-3 acid ethyl esters (LOVAZA) [...] tablet Take 500 mg by mouth. 11/02/20 22 Active aspirin chewable tablet 81 mg Chew and swallow 81 mg by mouth. Active furosemide (Lasix) 20 mg tablet Take 20 mg by mouth. 08/16/20 22 Active lisinopriL (ZestriL) 5 mg tablet Take 5 mg by mouth. 08/16/20 22 Active lisinopriL (PRINIVIL,ZESTR IL) 20 mg tablet Take 20 mg by mouth. 02/10/20 25 03/17/2 026 Active mycophenolate mofetil (CELLCEPT) 250 mg capsuleIndicati ons:Liver replaced by transplant (HCC) TAKE (1) CAPSULE BY MOUTH TWICE DAILY 60 capsule 03/06/20 25 Active omega 5-uyh-eix-fish oil 300-1,000 mg capsule capsule @@ TAKE 1 CAPSULE BY MOUTH DAILY. 28 capsule 03/06/20 25 Active tacrolimus (PROGRAF) 0.5 mg capsuleIndicati ons:Liver replaced by transplant (HCC) Take 1 capsule (0.5 mg total) by mouth once a day. 56 capsule 03/06/20 25 025 Active mycophenolate mofetil (CELLCEPT) 250 mg capsuleIndicati ons:Liver replaced by transplant (HCC) TAKE (1) CAPSULE BY MOUTH TWICE DAILY 60 capsule 02/06/20 25 025 Discontinued tacrolimus (PROGRAF) 0.5 mg capsuleIndicati ons:Liver replaced by transplant (HCC) TAKE (1) CAPSULE BY MOUTH TWICE DAILY. 56 capsule 02/06/20 25 025 Discontinued omega 6-ena-icd-fish oil 300-1,000 mg capsule capsule @@ TAKE [...] Limited capacity/historian as such. Patient's HCP Chuck aDvid (brother) activated as HCA. Patient appears at [...] nasal swab MRSA PCR. -ICU glycemic protocol. 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 Mesh N/A: Abdomen [employer] 05/23/2027 [id number] / / [id number] Description:Verified by RK, ROBBY and ANASTASIYA. Procedures * Due to [place] state law, this organization might not be [...] to Health Maintenance Results * Due to [place] state law, this organization might not be sharing negative HIV tests. * (ABNORMAL) CBC Auto Differential (03/03/2025 11:05 AM EDT) WBC 8.9 3.8 - 10.8 10*3/uL 03/03/2025 4:22 PM EDT [facility] RBC 4.18 3.80 - 5.10 10*6/uL 03/03/2025 4:22 PM EDT [facility] Hemoglobin 12.4 11.7 - 15.5 g/dL 03/03/2025 4:22 PM EDT [facility] Hematocrit 38.4 35.0 - 45.0 % 03/03/2025 4:22 PM EDT [facility] MCV 91.9 80.0 - 100.0 fL 03/03/2025 4:22 PM EDT [email or web address] MCH 29.7 27.0 - 33.0 pg 03/03/2025 4:22 PM EDT [email or web address] MCHC 32.3 32.0 - 36.0 g/dL 03/03/2025 4:22 PM EDT [facility] RDW 15.0 11.0 - 15.0 % 03/03/2025 4:22 PM EDT [email or web address] Platelets 323 140 - 400 10*3/uL 03/03/2025 4:22 PM EDT [facility] MPV 11.1 7.5 - 12.5 fL 03/03/2025 4:22 PM EDT [email or web address] Neutrophil % 50.4 % 03/03/2025 4:22 PM EDT [email or web address] Immature Grans % 0.3 0.0 - 0.9 % 03/03/2025 4:22 PM EDT [facility] Lymphocyte % 36.5 % 03/03/2025 4:22 PM EDT [facility] Monocyte % 9.0 % 03/03/2025 4:22 PM EDT [facility] Eosinophil % 2.9 % 03/03/2025 4:22 PM EDT [facility] Basophil % 0.9 % 03/03/2025 4:22 PM EDT [facility] Neutrophil # 4.49 1.50 - 7.80 10*3/uL 03/03/2025 4:22 PM EDT [facility] Immature Grans # 0.03 <=0.03 10*3/uL 03/03/2025 4:22 PM EDT [facility] Lymphocyte # 3.30 0.85 - 3.90 10*3/uL 03/03/2025 4:22 PM EDT [facility] Monocyte # 0.80 0.20 - 0.95 10*3/uL 03/03/2025 4:22 PM EDT [facility] Eosinophil # 0.30 0.02 - 0.50 10*3/uL 03/03/2025 4:22 PM EDT [email or web address] Basophil # 0.10 0.00 - 0.20 10*3/uL 03/03/2025 4:22 PM EDT [email or web address] nRBC % 0.4 /100 WBCs 03/03/2025 4:22 PM EDT [email or web address] nRBC # 0.04(H) <0.01 10*3/uL 03/03/2025 4:22 PM EDT [facility] Blood Structure of peripheral vein / Unknown Venipuncture / Unknown 03/03/2025 11:05 AM EDT 03/03/2025 11:05 AM EDT Eveline Calderon MD LAB BLOOD ORDERABLES Final Resul t Performing Organization Address City/[facility]/ZIP Co de Phone Number [facility] [address] [place] [address], * Tacrolimus Level (03/03/2025 11:05 AM EDT) Tacrolimus, Highly Sensitive 5.7 mcg/L 03/03/2025 5:03 PM EDT [facility] Comment: No definitive therapeutic or toxic ranges have been established. Optimal blood drug levels are influenced by type of transplant, patient response, time post- transplant, co-administration of other drugs, and drug formulation. The following trough range is a suggested guideline: 5.0-20.0 mcg/L. This test was developed and its analytical performance characteristics have been determined by [facility]. It has not been cleared or approved by the FDA. This assay has been validated pursuant to the CLIA regulations and is used for clinical purposes. Blood Structure of peripheral vein / Unknown Venipuncture / Unknown 03/03/2025 11:05 AM EDT 03/03/2025 11:05 AM EDT Narrative DAHIANA ROCK - 03/03/2025 5:03 PM EDT [facility] Received Date:[id number] Eveline Calderon MD LAB BLOOD ORDERABLES Final Resul t Performing Organization Address City[facility] Co de Phone Number DAHIANA WILKERSON [address], [place] [address], [place] [phone] [facility] [address], [place] [address], [place] [phone] * Magnesium (03/03/2025 11:05 AM EDT) MG 1.7 1.6 - 2.4 mg/dL 03/03/2025 12:32 PM EDT [facility] Blood Structure of peripheral vein / Unknown Venipuncture / Unknown 03/03/2025 11:05 AM EDT 03/03/2025 11:05 AM EDT us Eveline Calderon MD LAB BLOOD ORDERABLES Final Resul t [facility] [address] [place] [address], * (ABNORMAL) Comprehensive Metabolic Panel (03/03/2025 11:05 AM EDT) NA 139 135 - 145 mmol/L 03/03/2025 12:32 PM EDT [facility] K 5.5(H) 3.5 - 5.3 mmol/L 03/03/2025 12:32 PM EDT [facility] Cl 107 98 - 107 mmol/L 03/03/2025 12:32 PM EDT [facility] CO2 20(L) 22 - 32 mmol/L 03/03/2025 12:32 PM EDT [facility] Anion Gap 12 5 - 15 [place] MANUAL 03/03/2025 12:32 PM EDT [facility] Glucose 278(H) 65 - 99 mg/dL 03/03/2025 12:32 PM EDT [facility] Creatinine 2.19(H) 0.50 - 1.20 mg/dL 03/03/2025 12:32 PM EDT [facility] Calcium 9.9 8.6 - 10.5 mg/dL 03/03/2025 12:32 PM EDT [facility] Total Protein 6.9 6.0 - 8.0 g/dL 03/03/2025 12:32 PM EDT [facility] Albumin 3.5 3.5 - 5.2 g/dL 03/03/2025 12:32 PM EDT [facility] Bilirubin, Total 0.3 0.2 - 1.2 mg/dL 03/03/2025 12:32 PM EDT [facility] Alkaline Phosphatase 111 35 - 129 U/L 03/03/2025 12:32 PM EDT [facility] AST 20 10 - 40 U/L 03/03/2025 12:32 PM EDT [facility] ALT 15 10 - 40 U/L 03/03/2025 12:32 PM EDT [facility] BUN 57(H) 7 - 23 mg/dL 03/03/2025 12:32 PM EDT [facility] eGFR 24(L) >=60 mL/min/1 .73m2 [facility] MANUAL 03/03/2025 12:32 PM EDT [facility] Comment:The estimated glomer ular filtration rate (eGFR) is calculated using a new formula developed by the NKF-ASN task force to eliminate race-based correction factors. The new formula uses serum/plasma creatinine, age, and gender to determine eGFR. A value below 60mls/min might indicate kidney disease and will be flagged. For additional information, see Zhang et al, Am J Kidney Dis. 2021;79(2):268- 288, A Unifying Approach for GFR estimation: Recommendations of the NKF-ASN Task Force on Reassessing the Inclusion of Race in Diagnosing Kidney Disease . Globulin, Total 3.4 2.1 - 4.2 g/dL [facility] MANUAL 03/03/2025 12:32 PM EDT [facility] A/G Ratio 1.0(L) 1.5 - 3.0 [facility] 03/03/2025 12:32 PM EDT [facility] Blood Structure of peripheral vein / Unknown Venipuncture / Unknown 03/03/2025 11:05 AM EDT 03/03/2025 11:05 AM EDT us Eveline Calderon MD LAB BLOOD ORDERABLES Final Resul t [facility] [address] [place] [address], * (ABNORMAL) Phosphorus (12/29/2022 5:16 AM EST) Phosphorus 2.2(L) 2.5 - 4.5 mg/dL 12/29/2022 6:12 AM EST [facility] Blood Structure of peripheral vein / Unknown Venipuncture / Unknown 12/29/2022 5:16 AM EST 12/29/2022 5:38 AM EST Maycol Flores MD LAB BLOOD ORDERABLES Final Resu lt [facility] [address] [place] [address], * (ABNORMAL) Hemoglobin A1c (05/10/2017 4:19 PM EDT) Hemoglobin A1C 6.8(H) <5.7 [facility] Comment: UNITS OF MEASURE: % of [...] for children. eAG (MG/DL) 148 () (calc) [facility] eAG (MMOL/L) 8.2 () (calc) [facility] 05/10/2017 4:19 PM EDT 05/10/2017 5:43 PM EDT Eveline Calderon MD LAB BLOOD ORDERABLES Final Resul t [address], [place] [address], * Vitamin D, 25-Hydroxy, Total, Immunoassay (07/04/2012 11:33 AM EDT) Vitamin D 25 Oh 41 30 - 100 ng/mL [facility] Comment: Vitamin D Status 25-OH Vitamin D Deficiency: <10 ng/mL Insufficiency: 10-30 ng/mL Sufficiency: 30-100 ng/mL Toxicity: >100 ng/mL 07/04/2012 11:3 3 AM EDT 07/04/2012 12:01 PM EDT us Ricardo Mejia MD LAB BLOOD ORDERABLES Final Resul t [facility] [employer] [facility] [address] [place] [address], * PTH, Intact (without Calcium) (07/04/2012 11:33 AM EDT) Parathyroid Intact 60 12 - 65 pg/mL [facility] 07/04/2012 11:3 3 AM EDT 07/04/2012 12:01 PM EDT Ricardo Mejia MD LAB BLOOD ORDERABLES Final Resul t Performing Organization Address City[facility] Co de Phone Number [facility] [employer] [address] [place] [address], from Last 3 Months or Most Recently Relevant to Health Maintenance Additional Health Concerns Infection Onset Date 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 Health Care Agent Care Teams Software Designer Relationship Specialty Start Date End Date Mallorie Draper [address] [place] [address] PCP - General Internal Medicine 01/21/24
--- OUTSIDE RECORDS SUMMARY | 2025-03-10 17:13 | XMS_ITS | Encounter Summary ---
Author Organization [facility] Address [address] [place] [address] Care Team Providers Care Upholstery Tech Name Role Phone Mallorie Draper Stephie Primary Care Provider [phone] Reason for Visit * Reason Comments Med Change Request Encounter Details Date Type Department Care Team (Late Contact Info) Description 03/06/2025 Refill [facility] [address] [place] [address] Eveline Calderon MD [address] [place] [phone] Liver replaced by transplant (HCC) Social History [...] Info) Description 03/02/2026 11:30 AM EDT Follow-Up [facility] [address] [place], [place] [phone] Eveline Calderon MD [address] [place], [place] [phone] documented as of this encounter Visit Diagnoses Diagnosis Liver replaced by transplant (HCC) Liver replaced by transplant documented in this encounter Additional Health Concerns Infection Onset Date Last Indicated Resolved Time 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
--- OUTSIDE RECORDS SUMMARY | 2025-03-10 17:13 | XMS_ITS | Clinical Summary ---
Author Organization [facility] Address [address] [place] [address] Phone Care Team Providers Care Beef Selector Name Role Phone Os, Roxy JOSE Primary [...] by mouth 2 Active ergocalciferol 1.25 MG (13960 UT) capsule Take 1 capsule by mouth [...] 60 tablet 11 4 07/17/20 25 Active lisinopril 20 MG tablet Take 1 tablet (20 mg total) by mouth 1 (one) time each day 90 tablet 3 5 02/10/20 26 Active lisinopril 5 MG tablet Take 20 mg by mouth 1 (one) time each day 02/10/20 25 Discontinu ed(Reorder (does not appear on AVS)) Active Problems Problem Noted Date Diagnosed Date [...] mellitus 04/05/2009 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 Encounters Date Type Department Care Team Description 02/09/2025 Telephone [facility] [address] [place] [address] Vicente Benson MD 02/05/2025 1:30 PM EDT Office Visit [facility] [address] [place] [address] Vicente Benson MD Stage 3a chronic kidney disease (HCC) (Primary Dx); Other proteinuria from Last 3 Months Immunizations Immunization Administration Dates Next Due DT 03/24/2019 Influenza [...] Sign Reading Time Taken Comments Blood Pressure 148/98 02/05/2025 1:32 PM EDT Pulse 100 02/05/2025 1:32 PM EDT Temperature - - Respiratory Rate - - Oxygen Saturation 99% 02/05/2025 1:32 PM EDT Inhaled Oxygen Concentration - - Weight 82.6 kg (182 lb) 02/05/2025 1:32 PM EDT Height 160 cm (5' 3 ) 07/17/2024 2:40 PM EDT Body Mass Index 32.24 07/17/2024 2:40 PM EDT Plan of Treatment Upcoming Encounters Date Type Department Care Team (Late st Contact Info) Description 04/16/2025 3:00 PM EDT Office Visit [facility] [address] [place] [address] Vicente Benson MD [address] [facility] [address] [place] [address] Health Maintenance Due Date Last Done Comments Breast Cancer Screening 1955 Colorectal Cancer Screening: Annual FOBT 2003 Colorectal Cancer Screening: Colonoscopy 2003 Colorectal Cancer Screening: Sigmoidoscopy 2003 Diabetes: Hemoglobin A1C 01/30/2022 05/10/2017 Diabetes: Ophthalmology Exam 01/30/2022 Diabetes: Pedal Pulse Checked 01/30/2022 Diabetes: Sensory Foot Exam 01/30/2022 Diabetes: Visual Foot Exam 01/30/2022 Pneumococcal Vaccine: 50+ Years Completed 11/25/2019, 02/14/2016, 02/14/2016, Additional history exists Pneumococcal Vaccine: Peds (0 to 5 Years) and At-Risk Patients (6 to 49 Years) Discontinued 11/25/2019, 02/14/2016, 02/14/2016, Additional history exists Influenza Vaccine Completed 08/19/2024, , 09/06/2023, Additional history exists Hepatitis B Vaccine Aged Out No longe r eligible based on patient's age to complete this topic Insurance [place] [employer] [facility] ([id number]) [place] [employer] [facility] ([id number]) [place] [employer] [facility] ([id number]) Care Teams Beef Selector Relationship Specialty Start Date End Date Anuj, DAMON Ramsey [address] [place] [address] PCP - General Geriatric Medicine 07/17/24
[2025-03-11 11:13] LABS: Complement C3 158 mg/dL (83-193)
[2025-03-11 21:04] LABS: Prot Elec - Albumin 3.1 g/dL (3.8-4.8); Prot Elec - Alpha1 0.3 g/dL (0.2-0.3); Prot Elec - Alpha2 1.1 g/dL (0.5-0.9); Prot Elec - Beta 1 0.4 g/dL (0.4-0.6); Prot Elec - Beta 2 0.4 g/dL (0.2-0.5); Prot Elec - Total Protein 6.4 g/dL (6.1-8.1)
[2025-03-14 08:03] LABS: DNAds, Crithidia Antibody Negative (Negative)
[2025-03-15 12:03] LABS: Anti Nuclear Antibody Pattern Nuclear, Nucleolar; Anti Nuclear Antibody Screen POSITIVE (NEGATIVE)
[2025-03-16 17:53] LABS: Phospholipase A2 IgG ELISA <4 RU/mL; Phospholipase A2 IgG IFA NEGATIVE (NEGATIVE)
[2025-03-17 17:53] LABS: Kappa, Serum 273 mg/dL (176-443); Kappa/Lambda Ratio, Serum 1.78 (1.29-2.55); Lambda, Serum 153 mg/dL (91-240)
== END 2025-03-10 13:54 | disposition home or self-care (01) ==
LOC: HO.LAB 13:53
PROVIDERS: PCP Nurse Practitioner; Visit Provider Internal Medicine
DX: N18.31 Chronic kidney disease, stage 3a (principal); R80.8 Other proteinuria
CPT/HCPCS: 36415; 80048; 83520; 83883; 84165; 85025; 86038; 86039; 86160; 86255

== ENCOUNTER 2025-04-10 13:16 | Outpatient (REF) | payer OTHER, SELFPAY ==
--- OUTSIDE RECORDS SUMMARY | 2025-04-10 13:19 | XMS_ITS ---
Author Organization [facility] Address [address] [place] [address] Care Team Providers Care Sugarcane Planter Name Role Phone Mallorie Draper Primary Care Provider [phone] Transplant Episode Liver Recipient [facility] ([place], [place]) - [facility] Organ Received: Liver Transplanted on 09/07/2001 Marked as Active Follow-up on 09/07/2001 Liver CoordinatorMonique Capps RN Phone: N/A Fax: N/A Email: N/A [place] Organ Diagnosis Organ Primary Contributory Liver Cirrhosis: [...] N/A N/A N/A Dex Charlton Referring Physician [phone] N/A Eveline Calderon MD It Systems Manager [phone] [email or web address] Events Post-Transplant Pre-Transplant Admitted: 08/22/2001 Referred: 12/17/2000 Transplanted: 09/07/2001 Evaluation began: 1 Discharged: 12/20/2001 Committee: 07/02/2001 Center waitlisted: 1
--- OUTSIDE RECORDS SUMMARY | 2025-04-10 13:19 | XMS_ITS | Encounter Summary ---
Author Organization [facility] Address [address] [place] [address] Care Team Providers Care Bow Making Machine Operator Name Role Phone SukhwinderMallorie shelton Stephie Primary Care Provider [phone] Encounter Details Date Type Department Care Team (Late st Contact Info) Description 08/29/2017 Transplant Conversio n Encounter [facility] Health Information Management [address] [place] [address] Provider, [facility] Social History Tobacco Use Types [...] Info) Description 03/02/2026 11:30 AM EDT Follow-Up [facility] [address] [place] [address] Eveline Calderon MD [address] [place] [address] documented as of this encounter Visit Diagnoses Not on filedocumented in this encounter Additional Health Concerns Infection Onset Date Last Indicated Resolved Time COVID-19 - Confirmed infecti on Comment:[facility] 12/28/2020 12/28/2020 01/18/2021 3:47 PM EST R/O Respiratory Virus Infection 12/26/2022 3 12/26/2022 10:05 PM EST R/O Influenza 12/26/2022 12/26/2022 12/26/2022 10: 05 PM EST COVID-19 - Suspected infection 12/26/2022 12/26/2022 12/26/2022 10:05 PM EST 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
--- OUTSIDE RECORDS SUMMARY | 2025-04-10 13:19 | XMS_ITS | Clinical Summary ---
Author Organization Unknown Care Team Providers Care Seed Corn Manager Production Name Role Phone DEANNA PENA, MARTHA Unavailable Unavailable CHADWICK MAGAÑA, FABIÁN Unavailable Unavailable Payers Payer Name Policy Type Policy Number Effective Date Expira tion Date [facility] C[facility] PL[facility] [place] [id number] MEDICAID [facility] [id number] MEDICARE - [facility]/[place] - [place] [id number] Problems Condition Name Condition Details Condition Category [...] 05-07 00:00: 00 05-28 23:59 :00 No [id number] Per instruc tions 2 TIMES DAILY Per instructio ns 2 TIMES DAILY (route: subcutaneo us) Med Classific ation: Endocrine Lantus Solostar U-100 Insulin 100 unit/mL (3 mL) subcutaneou s pen 05-07 00:00: 05-21 00:00 :00 No [id number] Per instruc tions Per instructio ns (route: subcutaneo us) Med Classific ation: Endocrine repaglinide 1 mg tablet 05-07 00:00: 00 Yes [id number] 1 mg 3 TIMES DAILY 1 mg 3 TIMES DAILY (route: oral) Med Classific ation: Endocrine allopurinol 300 mg tablet 04-22 00:00: 00 Yes [id number] 300 mg DAILY 300 mg DAILY (route: oral) Med Classific ation: Gout and Hyperuric emia Therapy anastrozole 1 mg tablet 04-22 00:00: 00 Yes [id number] 1 mg DAILY 1 mg DAVID Y (route: oral) Med Classific ation: Antineopl astics atorvastati n 40 mg tablet 04-22 00:00: 00 Yes [id number] 40 mg DAILY 40 mg DAILY (route: oral) Med Classific ation: Cardiovas cular Therapy Agents Calcium Antacid 200 mg (as calcium carbonate 500 mg) chewable tablet 04-22 00:00: 00 Yes [id number] 2 tablet DAILY 2 tablet DAILY (route: oral) Med Classific ation: Gastroint estinal Therapy Agents diltiazem CD 180 mg capsule,ext ended release 24 hr 04-22 00:00: 00 Yes [id number] 180 mg DAILY 180 mg DAILY (route: oral) Med Classific ation: Cardiovas cular Therapy Agents Eliquis 5 mg tablet 04-22 00:00: 00 Yes [id number] 5 mg 2 TIMES DAILY 5 mg 2 TIMES DAILY (route: oral) Med Classific ation: Hematolog ical Agents levothyroxi ne 88 mcg tablet 04-22 00:00: 00 Yes [id number] 88 mcg DAILY 88 mcg DAILY (route: oral) Med Classific ation: Endocrine metoprolol tartrate 25 mg tablet 04-22 00:00: 00 Yes [id number] 25 mg DAILY 25 mg DAILY (route: oral) Med Classific ation: Cardiovas cular Therapy Agents mycophenola te mofetil 250 mg capsule 04-22 00:00: 00 Yes [id number] 250 mg 2 TIMES DAILY 250 mg 2 TIMES DAILY (route: oral) Med Classific ation: Immunosup pressive Agents tacrolimus 0.5 mg capsule, immediate-r elease 04-22 00:00: 00 Yes [id number] 0.5 mg 2 TIMES DAILY 0.5 mg 2 TIMES DAILY (route: oral) Med Classific ation: Immunosup pressive Agents ergocalcife rol (vitamin D2) 1,250 mcg (50,000 unit) capsule 04-22 00:00: 00 05-21 00:00 :00 No [id number] Per instruc tions Per instructio ns (route: oral) Med Classific ation: Electroly te Balance-N utritiona l Products repaglinide 0.5 mg tablet 05-21 00:00: 00 Yes [id number] 0.5 mg 2 TIMES DAILY 0.5 mg 2 TIMES DAILY (route: oral) Med Classific ation: Endocrine Trulicity 3 mg/0.5 mL subcutaneou s pen injector 05-21 00:00: 00 05-28 23:59 :00 No [id number] 3 mg WEEKLY 3 mg WEEKLY (route: subcutaneo us) Med Classific ation: Endocrine Vitamin D3 25 mcg (1,000 unit) capsule 05-21 00:00: 00 Yes [id number] 25 mcg DAILY 25 mcg DAILY (route: oral) Med Classific ation: Electroly te Balance-N utritiona l Products Lantus Solostar U-100 Insulin 100 unit/mL (3 mL) subcutaneou s pen 05-29 00:00: 00 01-14 23:59 :00 No [id number] 34 unit DAILY 34 unit DAILY (route: subcutaneo us) Med Classific ation: Endocrine Trulicity 4.5 mg/0.5 mL subcutaneou s pen injector 05-29 00:00: 00 Yes [id number] 4.5 mg WEEKLY 4.5 mg WEEKLY (route: subcutaneo us) Med Classific ation: Endocrine Lantus Solostar U-100 Insulin 100 unit/mL (3 mL) subcutaneou s pen 01-14 00:00: 00 Yes [id number] 37 unit DAILY 37 unit DAILY (route: subcutaneo us) Med Classific ation: Endocrine Vital Signs Vital Name Observation Time Observation Value Commen ts Temperature 2025-03-22 07:22:00.000 97.4 [degF] Temperature 2025-03-21 09:54:00.000 98.6 [degF] Pulse 2025-03-22 07:22:00.000 78 /min Pulse 2025-03-21 09:54:00.000 70 /min O2 Saturation (%) 2025-03-22 07:22:00.000 98 % O2 Saturation (%) 2025-03-21 09:55:00.000 98 % Respirations 2025-03-22 07:22:00.000 18 /min Respirations 2025-03-21 09:54:00.000 18 /min Systolic Blood Pressure 2025-03-22 07:22:00.000 120 mm [Hg] Systolic Blood Pressure 2025-03-21 09:54:00.000 130 mm [Hg] Diastolic Blood Pressure 2025-03-22 07:22:00.000 80 mm [Hg] Diastolic Blood Pressure 2025-03-21 09:54:00.000 74 mm [Hg] Plan of Treatment Planned Activity [...] AWARENESS FOR SAFETY AND WILL NOTIFY CLINICAL ENVIRONMENTAL INSPECTOR AND PHYSICIAN/PROVIDER WITH ANY CHANGE IN CONDITION. [code = SKILLED NURSE WILL MAINTAIN SITUATIONAL AWARENESS FOR SAFETY AND WILL NOTIFY CLINICAL ENVIRONMENTAL INSPECTOR AND PHYSICIAN/PROVIDER WITH ANY CHANGE IN CONDITION.] Future Scheduled Test SKILLED NU RSE FOR ADMINISTRATION AND TEACHING OF PRESCRIBED INJECTION THERAPY FOR LANTUS INSULIN, TRULICITY(SPECIFY NAME OF INJECTABLE MED) [code = SKILLED NURSE FOR ADMINISTRATION AND TEACHING OF PRESCRIBED INJECTION THERAPY FOR LANTUS INSULIN, TRULICITY(SPECIFY NAME OF INJECTABLE MED)] Future Scheduled Test [...] Goal - TO MANAGE INS ULIN Goal 2025-03-12 Patient Goal - TO MANAGE INS ULIN [...] Notes <paragraph>[Visit Date: 2024 by FABIÁN GENAO RN]:</paragraph><paragraph>NO SIGNS OR SYMPTOMS OF HYPER OR HYPOGLYCEMIA. FBS 196. INSULIN ADMINISTERED PER MD ORDER</paragraph> <paragraph>[Visit Date: 2024 by FABIÁN GENAO RN]:</paragraph><paragraph>NURSE ADMINISTERED LANTUS AND TRULICITY INJECTIONS</paragraph> <paragraph>[Visit Date: 2024 by FABIÁN GENAO RN]:</paragraph><paragraph>FBS 126. PT DENIES SIGNS OR SYMPTOMS OF HYPER OR HYPOGLYCEMIA. INSULIN ADMINISTERED PER MD ORDER</paragraph> <paragraph>[Visit Date: 2024 by FABIÁN GENAO RN]:</paragraph><paragraph>PT DENIES SIGNS OR SYMPTOMS OF HYPER OR HYPOGLYCEMIA. FBS 239. INSULIN ADMINISTERED PER MD ORDER.</paragraph> <paragraph>[Visit Date: 2024 by FABIÁN GENAO RN]:</paragraph><paragraph>PT IS AOX3. PT IN CHEERFUL SPIRITS ROOMATE HAS RETURNED HOME. INSULIN ADMINISTERED PER MD ORDER. THIS IS A 69 YEAR OLD FEMALE WITH [...] HAVE SUPPORTIVE FAMILY WHO LIVE NEARBY AND [facility] STAFF A CAREGIVER AVAILABLE. PATIENT DOES NOT UTILIZE DME. PATIENT RESOURCES INCLUDE REGULAR COMPANIONS FROM THE [employer] PROGRAM PATIENT REQUIRES INTERMEDIATE VISITS DAILY FOR FOR INSULIN ADMINISTRATION, MEDICATION EDUCATION. PATIENT REMAINS HOMEBOUND DUE TO TAXING EFFORT TO LEAVE HOME SAFELY WITHOUT ASSISTANCE AND WEAKNESS.</paragraph> <paragraph>[Visit Date: 2024 by LISA STRONG NURSES' ASSOCIATION COUNSELOR]:</paragraph><paragraph>ALERT AND ORIENTED X3</paragraph> <paragraph>[Visit Date: 2024 by DC GIBSON LPN]:</paragraph><paragraph>BS 189 THIS MORNING BEFORE BREAKFAST. LANTUS 37U ADMINISTERED TO L ARM WITHOUT DIFFICULTY PATIENT TOLERATED WELL DENIES SX OF HYPOGLYCEMIA OR HYPERGLYCEMIA NONE NOTED</paragraph> Encounters Start Date/Time End Date/Time Encounter Type Admission Type Attending Clinicians Care Facility Care Department Encounter ID Discharge Date Discharge Status Discharge Condition Discharge Reason Percent Goals Met 2025-03-17 00:00:00 2025-05-15 00:00:00 Outpatient ALFREDORTFABIÁN MARTINEZ [facility] [id number] .00
--- OUTSIDE RECORDS SUMMARY | 2025-04-10 13:19 | XMS_ITS | Patient Health Record ---
Author Organization [facility] Address [address] [place] [address] Care Team Providers Care On Site Nurse Name Role Phone Nahum Fernandez MD Primary Care Provider Dex Live Unavailable [phone] Reason For Referral No Information Medications Medication SIG (Take, Route, Frequency, Duration) Notes Start Date End Date Status Vitamin D (Ergocalciferol) 55275 UNIT TAKE 1 CAPSULE EVERY 2 WEEKS. [...] HCl 0.3 MG TAKE 1 TABLET BY [facility] EVERY DAY Oral for 90 Active Flintstones [...] HCl 500 MG TAKE 1 TABLET BY [facility] TWICE A DAY WITH MEALS Oral for [...] Problem Status W/U Status Risk Notes Problem 009641095 Encounter for screening for malignant neoplasm of colon (Z12.11) Active confirmed Problem Screening for malignant neoplasm of rectum (298577722) Encounter for screening for malignant neoplasm of rectum (Z12.12) Active confirmed Problem 558894251 Long-term use of aspirin therapy (Z79.82) Active confirmed Problem 347424473 Hx of cirrhosis (Z87.19) Active confirmed Plan Of Treatment Future Test Test Name Order Date COLONOSCOPY 06/13/2016 Insurance Providers Payer Name Payer Address Payer Phone Subscriber Number Group Number Insured Name Patient Relationship to Insured Coverage Start Date Coverage End Date MEDICARE OF [place] [address] [place] [address] [id number] GILLES CHONG Self - patient is the insured MEDICAID OF [facility] [address] [place] [address] [id number] GILLES CHONG Self - patient is the insured Medical (General) History Medical History History ICD Code Screening colonoscopy in 03/05/2006-nega tive 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
--- OUTSIDE RECORDS SUMMARY | 2025-04-10 13:20 | XMS_ITS | Clinical Summary ---
Author Organization Unknown Care Team Providers Care Guitar Maker Hand Name Role Phone DEANNA PENA, MARTHA Unavailable Unavailable CHADWICK MAGAÑA, FABIÁN Unavailable Unavailable Payers Payer Name Policy Type Policy Number Effective Date Expira tion Date [facility] ELDER CARE PLAN - [place] [id number] MEDICAID [facility] [id number] MEDICARE - [facility]/[place] - [place] [id number] Problems Condition Name Condition Details Condition Category [...] 05-07 00:00: 00 05-28 23:59 :00 No [id number] Per instruc tions 2 TIMES DAILY Per instructio ns 2 TIMES DAILY (route: subcutaneo us) Med Classific ation: Endocrine Lantus Solostar U-100 Insulin 100 unit/mL (3 mL) subcutaneou s pen 05-07 00:00: 05-21 00:00 :00 No [id number] Per instruc tions Per instructio ns (route: subcutaneo us) Med Classific ation: Endocrine repaglinide 1 mg tablet 05-07 00:00: 00 Yes [id number] 1 mg 3 TIMES DAILY 1 mg 3 TIMES DAILY (route: oral) Med Classific ation: Endocrine allopurinol 300 mg tablet 04-22 00:00: 00 Yes [id number] 300 mg DAILY 300 mg DAILY (route: oral) Med Classific ation: Gout and Hyperuric emia Therapy anastrozole 1 mg tablet 04-22 00:00: 00 Yes [id number] 1 mg DAILY 1 mg DAVID Y (route: oral) Med Classific ation: Antineopl astics atorvastati n 40 mg tablet 04-22 00:00: 00 Yes [id number] 40 mg DAILY 40 mg DAILY (route: oral) Med Classific ation: Cardiovas cular Therapy Agents Calcium Antacid 200 mg (as calcium carbonate 500 mg) chewable tablet 04-22 00:00: 00 Yes [id number] 2 tablet DAILY 2 tablet DAILY (route: oral) Med Classific ation: Gastroint estinal Therapy Agents diltiazem CD 180 mg capsule,ext ended release 24 hr 04-22 00:00: 00 Yes [id number] 180 mg DAILY 180 mg DAILY (route: oral) Med Classific ation: Cardiovas cular Therapy Agents Eliquis 5 mg tablet 04-22 00:00: 00 Yes [id number] 5 mg 2 TIMES DAILY 5 mg 2 TIMES DAILY (route: oral) Med Classific ation: Hematolog ical Agents levothyroxi ne 88 mcg tablet 04-22 00:00: 00 Yes [id number] 88 mcg DAILY 88 mcg DAILY (route: oral) Med Classific ation: Endocrine metoprolol tartrate 25 mg tablet 04-22 00:00: 00 Yes [id number] 25 mg DAILY 25 mg DAILY (route: oral) Med Classific ation: Cardiovas cular Therapy Agents mycophenola te mofetil 250 mg capsule 04-22 00:00: 00 Yes [id number] 250 mg 2 TIMES DAILY 250 mg 2 TIMES DAILY (route: oral) Med Classific ation: Immunosup pressive Agents tacrolimus 0.5 mg capsule, immediate-r elease 04-22 00:00: 00 Yes [id number] 0.5 mg 2 TIMES DAILY 0.5 mg 2 TIMES DAILY (route: oral) Med Classific ation: Immunosup pressive Agents ergocalcife rol (vitamin D2) 1,250 mcg (50,000 unit) capsule 04-22 00:00: 00 05-21 00:00 :00 No [id number] Per instruc tions Per instructio ns (route: oral) Med Classific ation: Electroly te Balance-N utritiona l Products repaglinide 0.5 mg tablet 05-21 00:00: 00 Yes [id number] 0.5 mg 2 TIMES DAILY 0.5 mg 2 TIMES DAILY (route: oral) Med Classific ation: Endocrine Trulicity 3 mg/0.5 mL subcutaneou s pen injector 05-21 00:00: 00 05-28 23:59 :00 No [id number] 3 mg WEEKLY 3 mg WEEKLY (route: subcutaneo us) Med Classific ation: Endocrine Vitamin D3 25 mcg (1,000 unit) capsule 05-21 00:00: 00 Yes [id number] 25 mcg DAILY 25 mcg DAILY (route: oral) Med Classific ation: Electroly te Balance-N utritiona l Products Lantus Solostar U-100 Insulin 100 unit/mL (3 mL) subcutaneou s pen 05-29 00:00: 00 01-14 23:59 :00 No [id number] 34 unit DAILY 34 unit DAILY (route: subcutaneo us) Med Classific ation: Endocrine Trulicity 4.5 mg/0.5 mL subcutaneou s pen injector 05-29 00:00: 00 Yes [id number] 4.5 mg WEEKLY 4.5 mg WEEKLY (route: subcutaneo us) Med Classific ation: Endocrine Lantus Solostar U-100 Insulin 100 unit/mL (3 mL) subcutaneou s pen 01-14 00:00: 00 Yes [id number] 37 unit DAILY 37 unit DAILY (route: [...] AWARENESS FOR SAFETY AND WILL NOTIFY CLINICAL WOOD MACHINIST AND PHYSICIAN/PROVIDER WITH ANY CHANGE IN CONDITION. [code = SKILLED NURSE WILL MAINTAIN SITUATIONAL AWARENESS FOR SAFETY AND WILL NOTIFY CLINICAL WOOD MACHINIST AND PHYSICIAN/PROVIDER WITH ANY CHANGE IN CONDITION.] [...] HAVE SUPPORTIVE FAMILY WHO LIVE NEARBY AND [facility] STAFF A CAREGIVER AVAILABLE. PATIENT DOES NOT UTILIZE DME. PATIENT RESOURCES INCLUDE REGULAR COMPANIONS FROM THE [employer] PROGRAM PATIENT REQUIRES USP VISITS DAILY FOR FOR INSULIN ADMINISTRATION, MEDICATION EDUCATION. PATIENT REMAINS HOMEBOUND DUE TO TAXING EFFORT TO LEAVE HOME SAFELY WITHOUT ASSISTANCE AND WEAKNESS.</paragraph> <paragraph>[Visit Date: 2024 by LISA STRONG DASHBOARD DEVELOPER]:</paragraph><paragraph>ALERT AND ORIENTED X3</paragraph> <paragraph>[Visit Date: 2024 by [...] 2025-03-17 00:00:00 2025-05-15 00:00:00 Outpatient ALFREDORTFABIÁN MARTINEZ [facility] [id number] .00
--- OUTSIDE RECORDS SUMMARY | 2025-04-10 13:20 | XMS_ITS | Clinical Summary ---
Author Organization [facility] Address [address] [place] [address] Care Team Providers Care Regional Climate Change Analyst Name Role Phone Mallorie Draper Primary Care Provider [phone] Allergies Active Allergy Reactions Criticality Noted Date [...] a day. 09/12/20 Active FreeStyle Ev 2 [facility] 07/13/20 Active calcium carbonate 400 mg calcium (1,000 mg) tablet,chewable Chew and swallow 1,000 mg by mouth. 05/17/20 Active OneTouch Verio Flex meter [facility] 01/25/20 Active omega-3 acid ethyl esters (LOVAZA) [...] Take 5 mg by mouth. 08/16/20 Active lisinopriL (PRINIVIL,ZESTR IL) 20 mg tablet Take 20 mg by mouth. 02/10/20 25 026 Active tacrolimus (PROGRAF) 0.5 mg capsuleIndicati ons:Liver replaced by transplant (HCC) Take 1 capsule (0.5 mg total) by mouth once a day. 56 capsule 11 03/06/20 25 Active mycophenolate mofetil (CELLCEPT) 250 mg capsuleIndicati ons:Liver replaced by transplant (HCC) TAKE (1) CAPSULE BY MOUTH TWICE DAILY 60 capsule 04/01/20 25 Active omega 4-jsa-abl-fish oil 300-1,000 mg capsule capsule @@ TAKE 1 CAPSULE BY MOUTH DAILY. 28 capsule 04/01/20 25 Active mycophenolate mofetil (CELLCEPT) 250 mg capsuleIndicati ons:Liver replaced by transplant (HCC) TAKE (1) CAPSULE BY MOUTH TWICE DAILY 60 capsule 03/06/20 25 025 Discontinued omega 1-ssr-jiu-fish oil 300-1,000 mg capsule capsule @@ TAKE 1 CAPSULE BY MOUTH DAILY. 28 capsule 03/06/20 25 025 Discontinued Active Problems Problem Noted [...] nasal swab MRSA PCR. -ICU glycemic protocol. -HOSPITAL ORDERLY evaluation, if ok to take po diet [...] Encounters Date Type Department Care Team Description 04/01/2025 Refill [facility] [address] [place] [phone] Eveline Calderon MD Liver replaced by transplant (HCC) 03/19/2025 Orders Only [facility] Transplant Department [address] [place] [phone] Eveline Calderon MD 03/13/2025 Orders Only [facility] Transplant Department [address] [place] [phone] Monique Capps RN Liver replaced by transplant (HCC) (Primary Dx); Immunosuppressed status (HCC) 03/06/2025 Refill [facility] [address] [place] [address] 84068 Eveline Calderon MD Liver replaced by transplant (HCC) 03/05/2025 Telephone [facility] Transplant Department [address] [place] [phone] Monique Capps RN 03/05/2025 Refill [facility] [address] [place] [address] [phone] Eveline Calderon MD Liver replaced by transplant (HCC) 03/04/2025 Results Follow-Up [facility] Transplant Department [address] [place] [address] [phone] Monique Capps RN 03/03/2025 11:00 AM EDT Follow-Up [facility] [address] [place] [address] [phone] Eveline Calderon MD Liver replaced by transplant (HCC); Immunosuppressed status (HCC) 02/05/2025 Refill [facility] [address] [place] [address] Eveline Calderon MD Liver replaced by transplant from Last 3 Months Immunizations Immunization Administration Dates Next Due Covid-19, Pfizer, mRNA, [place] valent, PF 30 mcg/0.3 mL dose (for [...] Info) Description 03/02/2026 11:30 AM EDT Follow-Up [facility] [address] [place] [address] Eveline Calderon MD [address] [place] [address] Health Maintenance Due Date Last Done Comments [...] 02/16/2015, Additional history exists Phosphorus 12/29/2023 12/29/2022, 02/0 12/2022, 12/27/2022, Additional history exists COVID-19 Vaccine [...] this topic Medical Devices Implanted Type Area Fiberglass Ski Maker Device Identifier Shelf Expiration Date Model / Serial / Lot Mesh Ventral Hernia Soft Square [id number] - [id number] Implanted:Qty: 1 on 11/29/2022 by Pita Clark MD MPH at [facility] Mesh N/A: Abdomen [employer] 05/23/2027 [id number] / / [id number] Description:Verified by RK, NC and JM. Procedures * Due to [place] state law, this organization might not be [...] to Health Maintenance Results * Due to [place] state law, this organization might not be sharing negative HIV tests. * (ABNORMAL) CBC Auto Differential (03/03/2025 11:05 AM EDT) WBC 8.9 3.8 - 10.8 10*3/uL 03/03/2025 4:22 PM EDT [facility] RBC 4.18 3.80 - 5.10 10*6/uL 03/03/2025 4:22 PM EDT [facility] Hemoglobin 12.4 11.7 - 15.5 g/dL 03/03/2025 4:22 PM EDT [facility] Hematocrit 38.4 35.0 - 45.0 % 03/03/2025 4:22 PM EDT [facility] MCV 91.9 80.0 - 100.0 fL 03/03/2025 4:22 PM EDT [facility] MCH 29.7 27.0 - 33.0 pg 03/03/2025 4:22 PM EDT [facility] MCHC 32.3 32.0 - 36.0 g/dL 03/03/2025 4:22 PM EDT [facility] RDW 15.0 11.0 - 15.0 % 03/03/2025 4:22 PM EDT [facility] Platelets 323 140 - 400 10*3/uL 03/03/2025 4:22 PM EDT [facility] MPV 11.1 7.5 - 12.5 fL 03/03/2025 4:22 PM EDT [facility] Neutrophil % 50.4 % 03/03/2025 4:22 PM EDT [facility] Immature Grans % 0.3 0.0 - 0.9 % 03/03/2025 4:22 PM EDT [facility] Lymphocyte % 36.5 % 03/03/2025 4:22 PM EDT [facility] Monocyte % 9.0 % 03/03/2025 4:22 PM EDT [facility] Eosinophil % 2.9 % 03/03/2025 4:22 PM EDT [facility] Basophil % 0.9 % 03/03/2025 4:22 PM EDT [facility] Neutrophil # 4.49 1.50 - 7.80 10*3/uL 03/03/2025 4:22 PM EDT [facility] Immature Grans # 0.03 <=0.03 10*3/uL 03/03/2025 4:22 PM EDT [facility] Lymphocyte # 3.30 0.85 - 3.90 10*3/uL 03/03/2025 4:22 PM EDT [facility] Monocyte # 0.80 0.20 - 0.95 10*3/uL 03/03/2025 4:22 PM EDT [facility] Eosinophil # 0.30 0.02 - 0.50 10*3/uL 03/03/2025 4:22 PM EDT [facility] Basophil # 0.10 0.00 - 0.20 10*3/uL 03/03/2025 4:22 PM EDT [facility] nRBC % 0.4 /100 WBCs 03/03/2025 4:22 PM EDT [facility] nRBC # 0.04(H) <0.01 10*3/uL 03/03/2025 4:22 PM EDT [facility] Blood Structure of peripheral vein / Unknown Venipuncture / Unknown 03/03/2025 11:05 AM EDT 03/03/2025 11:05 AM EDT Eveline Calderon MD LAB BLOOD ORDERABLES Final Resul t Performing Organization Address City/[facility]/ZIP Co de Phone Number [facility] [address] [place] [address], * Tacrolimus Level (03/03/2025 11:05 AM EDT) Tacrolimus, Highly Sensitive 5.7 mcg/L 03/03/2025 5:03 PM EDT [facility] Comment: No definitive therapeutic or toxic ranges have been established. Optimal blood drug levels are influenced by type of transplant, patient response, time post- transplant, co-administration of other drugs, and drug formulation. The following trough range is a suggested guideline: 5.0-20.0 mcg/L. This test was developed and its analytical performance characteristics have been determined by [facility] [employer] [facility]. It has not been cleared or approved by the FDA. This assay has been validated pursuant to the CLIA regulations and is used for clinical purposes. Blood Structure of peripheral vein / Unknown Venipuncture / Unknown 03/03/2025 11:05 AM EDT 03/03/2025 11:05 AM EDT Narrative ADHIANA WILKERSON - 03/03/2025 5:03 PM EDT [facility] Received Date:[id number] us Eveline Calderon MD LAB BLOOD ORDERABLES Final Resul t DAHIANA WILKERSON [address] [facility] [address], [place] [address], [place] [phone] [facility] [address] [facility] [address], [place] [address], [place] [phone] * Magnesium (03/03/2025 11:05 AM EDT) MG 1.7 1.6 - 2.4 mg/dL 03/03/2025 12:32 PM EDT [facility] Blood Structure of peripheral vein / Unknown Venipuncture / Unknown 03/03/2025 11:05 AM EDT 03/03/2025 11:05 AM EDT Eveline Calderon MD LAB BLOOD ORDERABLES Final Resul t [facility] [address] [place] [address], * (ABNORMAL) Comprehensive Metabolic Panel (03/03/2025 11:05 AM EDT) NA 139 135 - 145 mmol/L 03/03/2025 12:32 PM EDT [facility] K 5.5(H) 3.5 - 5.3 mmol/L 03/03/2025 12:32 PM EDT [facility] Cl 107 98 - 107 mmol/L 03/03/2025 12:32 PM EDT [facility] CO2 20(L) 22 - 32 mmol/L 03/03/2025 12:32 PM EDT [facility] Anion Gap 12 5 - 15 [facility] 03/03/2025 12:32 PM EDT [facility] Glucose 278(H) 65 - 99 mg/dL 03/03/2025 12:32 PM EDT [facility] Creatinine 2.19(H) 0.50 - 1.20 mg/dL 03/03/2025 12:32 PM EDT [facility] Calcium 9.9 8.6 - 10.5 mg/dL 03/03/2025 12:32 PM EDT [facility] Total Protein 6.9 6.0 - 8.0 g/dL 03/03/2025 12:32 PM EDT [facility] Albumin 3.5 3.5 - 5.2 g/dL 03/03/2025 12:32 PM EDT [facility] Bilirubin, Total 0.3 0.2 - 1.2 mg/dL 03/03/2025 12:32 PM EDT [facility] Alkaline Phosphatase 111 35 - 129 U/L 03/03/2025 12:32 PM EDT [facility] AST 20 10 - 40 U/L 03/03/2025 12:32 PM EDT [facility] ALT 15 10 - 40 U/L 03/03/2025 12:32 PM EDT [facility] BUN 57(H) 7 - 23 mg/dL 03/03/2025 12:32 PM EDT [facility] eGFR 24(L) >=60 mL/min/1 .73m2 [facility] 03/03/2025 12:32 PM EDT [facility] Comment:The estimated glomer ular [...] Globulin, Total 3.4 2.1 - 4.2 g/dL [facility] 03/03/2025 12:32 PM EDT [facility] A/G Ratio 1.0(L) 1.5 - 3.0 [facility] 03/03/2025 12:32 PM EDT [facility] Blood Structure of peripheral vein / Unknown Venipuncture / Unknown 03/03/2025 11:05 AM EDT 03/03/2025 11:05 AM EDT Eveline Calderon MD LAB BLOOD ORDERABLES Final Resul t Performing Organization Address City/[facility]/ZIP Co de Phone Number [facility] [address] [place] [address], [place] * (ABNORMAL) Phosphorus (12/29/2022 5:16 AM EST) Phosphorus 2.2(L) 2.5 - 4.5 mg/dL 12/29/2022 6:12 AM EST [facility] Blood Structure of peripheral vein / Unknown Venipuncture / Unknown 12/29/2022 5:16 AM EST 12/29/2022 5:38 AM EST Maycol Flores MD LAB BLOOD ORDERABLES Final Resu lt Performing Organization Address [facility] Co de Phone Number [facility] [address] [place] [address], [place] * (ABNORMAL) Hemoglobin A1c (05/10/2017 4:19 PM EDT) Hemoglobin A1C 6.8(H) <5.7 [facility] Comment: UNITS OF MEASURE: % of total [...] for children. eAG (MG/DL) 148 () (calc) [facility] eAG (MMOL/L) 8.2 () (calc) [facility] 05/10/2017 4:19 PM EDT 05/10/2017 5:43 PM EDT Eveline Calderon MD LAB BLOOD ORDERABLES Final Resul t Performing Organization Address City/[facility]/ZIP Co de Phone Number [address], [place] [address], [place] [phone] * Vitamin D, 25-Hydroxy, Total, Immunoassay (07/04/2012 11:33 AM EDT) Vitamin D 25 Oh 41 30 - 100 ng/mL [facility] Comment: Vitamin D Status 25-OH Vitamin D Deficiency: <10 ng/mL Insufficiency: 10-30 ng/mL Sufficiency: 30-100 ng/mL Toxicity: >100 ng/mL 07/04/2012 11:3 3 AM EDT 07/04/2012 12:01 PM EDT Ricardo Mejia MD LAB BLOOD ORDERABLES Final Resul t Performing Organization Address City/[facility] Co de Phone Number [facility] [address] [place] [address], * PTH, Intact (without Calcium) (07/04/2012 11:33 AM EDT) Parathyroid Intact 60 12 - 65 pg/mL [facility] 07/04/2012 11:3 3 AM EDT 07/04/2012 12:01 PM EDT Ricardo Mejia MD LAB BLOOD ORDERABLES Final Resul t Performing Organization Address City/[facility] Co de Phone Number [facility] [address] [place] [address], from Last 3 Months or Most Recently Relevant to Health Maintenance 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
--- OUTSIDE RECORDS SUMMARY | 2025-04-10 13:20 | XMS_ITS | Clinical Summary ---
Author Organization [facility] Address [address] [place] [address] Phone Care Team Providers Care Credentialing Analyst Name Role Phone Os, Roxy JOSE Primary [...] by mouth 2 Active ergocalciferol 1.25 MG (87599 UT) capsule Take 1 capsule by mouth [...] 90 tablet 3 5 02/10/20 26 Active Active Problems Problem Noted Date Diagnosed [...] 02/09/2025 Telephone [facility] [address] [place] [address] Vicente Benson MD 02/05/2025 1:30 PM EDT Office Visit [facility] [address] [place] [address] Vicente Benson MD Stage 3a chronic [...] Care Team (Late st Contact Info) Description 04/11/2025 Orders Only [facility] [address] [phone] Vicente Benson MD [address] [phone] Stage 3a chronic kidney disease (HCC); Other proteinuria 04/16/2025 3:00 PM EDT [facility] [address] [place] [address] Vicente Benson MD [address] [address] Health Maintenance Due Date Last Done [...] patient's age to complete this topic Insurance [place] [employer] MCR/ANGIE ([id number]) [place] MCR/ANGIE ([id number]) [place] [employer] MCR/ANGIE ([id number]) Care Teams Credentialing Analyst Relationship Specialty Start Date End Date Anuj, DAMON Ramsey [address] [facility] [place] [address] PCP - General Geriatric Medicine 07/17/24
--- OUTSIDE RECORDS SUMMARY | 2025-04-10 13:20 | XMS_ITS | Continuity of Care Document ---
Author Organization [employer] Address 1 [facility] [address] [place] [address] Phone Care Team Providers Care Shank Sander Name Role Phone Pravin PENA, Aqib Unavailable Unavailable Allergies, Adverse Reactions, Alerts Substance Reaction Status Criticality piperacillin Active No Information peanut Active Low Medications Medication Instructions Dosage Effective Dates (start - stop) Status Comments TRULICITY 4.5 MG/0.5 ML PEN INJECT 0.5ML SUBCUTANEOUSLY ONCE WEEKLY ON THE SAME DAY - Active pen needle, diabetic 31 gauge x 3/16 use w/ BG checks - Active Prescr ibed by [facility] endo FREESTYLE EV 2 SENSOR APPLY TOPICALLY TO UPPER ARMS EVERY 14 DAYS. TO BE CHANGED BY SENIOR CARE. - Active acetaminophen 325 mg tablet take [...] TO 30 MINUTES BEFORE MEALS. - Active LEVOTHYROXINE 88 MCG TABLET TAKE 1 TABLET BY MOUTH DAILY. - Active Lantus Solostar U-100 Insulin 100 unit/mL (3 mL) subcutaneous pen Inject 37 units SQ once daily. - Active Free Style Ev Kit TRANSDERM use per endocrine orders-ODERED BY ENDO - Active Flintstones Gummies chewable tablet take two daily - Active mycophenolate mofetil 250 mg capsule Take 1 capsule by mouth twice daily. - Active ATORVASTATIN 40 MG TABLET TAKE 1 TABLET BY MOUTH DAILY - Active anastrozole 1 mg tablet take 1 tablet by oral route every day rx hem/onc - Active zoledronic acid 4 mg/100 mL in mannitol 5 %-water intravenous piggybck infuse 100 milliliter by intravenous route every 6 months rx by hem/onc - Active Fish Oil 1,000 mg (120 mg-180 mg) capsule take 1 capsule by oral route daily - Active DwayneStyle Lite Strips use w/ BG check - Active Prescribed by [facility] endo Futuro Anti-Embolism Stockings 18-30mmhg apply to legs in the morning and take off in the evening - Active Astagraf XL 0.5 mg capsule,extended release take 1 capsule by oral route 2 times every day in the morning on an empty stomach, 1 hour before or 2 hours after a meal 0.5 MG - Active Prescribed by Dr. Kvng Jameson Ev 2 [place] use to read blood sugar QID - Active alcohol swabs use when checking BG levels - Active Advance Directives Directive Yes / No Effective Date File Name No Information Encounters Encounter Description Practice Location Reason(s) For Visit Diagnoses Date Provider [facility], [address] [address], [place], [place], [id number], [place] tel:[phone] [place] No Information 5 Pravin Aqib. [address], [place], [place], [id number], [place]. tel:[phone] [facility], [address] [facility], [place], [place], [id number], [place] tel:[phone] [place] Encounter for rehabilitation evaluation 5 Gerald Yeh. [address] [place], [place], [id number]. tel:[phone] [facility], [address] [address], [place], [place], [id number], [place] tel:[phone] [place] No Information 5 Pravin Aqib. [address], [place], [place], [id number], [place]. tel:[phone] [facility], [address] [address], [place], [place], [id number], [place] tel:[phone] [place] Encounter for nutritional assessmentDiabetic nutritional counseling completed 5 Luis F Jones. [address], [id number], [place]. tel:[phone] [facility], [address] [facility], [place], [place], [id number], [place] tel:[phone] [place] No Information 5 Pravin Aqib. [address] [place], [place], [address], [place]. tel:[phone] [facility], [address] [facility], [place], [place], [id number], [place] tel:[phone] [place] No Information - 5 [facility]. [address], [id number], [place]. tel:[phone] [facility], [address] [facility], [place], [place], [address], [place] tel:[phone] [place] Semi-Annual (chief complaint) Encounter for general adult medical examination without abnormal findingsMixed hyperlipidemiaType 2 diabetes mellitus with hyperglycemiaLong term (current) use of insulinType 2 diabetes mellitus with diabetic peripheral angiopathy without gangreneType 2 diabetes mellitus with diabetic polyneuropathyType 2 diabetes mellitus with diabetic chronic kidney diseaseChronic kidney disease, stage 3aHypertensive chronic kidney disease with stage 1 through stage 4 chronic kidney disease, or unspecified chronic kidney diseaseAutoimmune thyroiditisPrimary hyperparathyroidismMal ignant neoplasm of unspecified site of left female breastMalignant neoplasm of unspecified site of right female breastImmunodeficiency , unspecifiedLiver transplant statusCerebral palsy, unspecifiedSecondary hypercoagulable stateUnspecified atrial fibrillation Apr-1 0- 5 Pravin Aqib. [address], [id number], [place]. tel:[phone] [facility], [address] [address], [place], [place], [address], [place] tel:[phone] [place] No Information Apr-0 8 5 Mina Oswald. [address] [place], [place], [id number], [place]. tel:[phone] [facility], [address] [facility], [place], [place], [address], [place] tel:[phone] [place] Acute Visit (chief complaint) Onychogryphosis Apr-0 - 5 Pravin Aqib. [address] [place], [place], [id number], [place]. tel:[phone] [facility], [address] [address], [place], [place], [address], [place] tel:[phone] [place] No Information Jan-2 5 Pravin Aqib. [address] [place], [place], [address], [place]. tel:[phone] [facility], [address], [place], [place], [address], [place] tel:[phone] [place] Disorder of the skin and subcutaneous tissue, unspecified Mar-1 5 Tarun Steinberg. [address] [place], [place], [address], [place]. tel:[phone] [facility], [address], [place], [place], [address], [place] tel:[phone] [place] No Information Jan-0 5 Pravin Aqib. [address] [place], [place], [id number], [place]. tel:[phone] [facility], [address] [facility], [place], [place], [address], [place] tel:[phone] [place] Acute Visit (chief complaint) Cough, unspecified type b-2 5 Pravin Aqib. [address] [place], [place], [address], [place]. tel:[phone] [facility], [address] [facility], [place], [place], [address], [place] tel:[phone] [place] No Information Dec-1 5 Pravin Aqib. [address] [place], [place], [address], [place]. tel:[phone] [facility], [address], [place], [place], [address], [place] tel:[phone] [place] No Information Feb-0 5 Pravin Aqib. [address] [place], [place], [address], [place]. tel:[phone] [facility], [address], [place], [place], [address], [place] tel:[phone] [place] Follow-up (chief complaint) No Information 5 Pravin Aqib. [address] [place], [place], [address], [place]. tel:[phone] [facility], [address] [facility], [place], [place], [address], [place] tel:[phone] [place] No Information 5 Pravin Aqib. [address] [place], [place], [id number], [place]. tel:[phone] [facility], [address] [facility], [place], [place], [address], [place] tel:[phone] [place] Encounter for rehabilitation evaluation 4 Gerald Yeh. [address] [place], [place], [id number]. tel:[phone] [facility], [address] [facility], [place], [place], [address], [place] tel:[phone] [place] No Information 4 Pravin Aqib. [address] [place], [place], [id number], [place]. tel:[phone] [facility], [address] [facility], [place], [place], [address], [place] tel:[phone] [place] Acute Visit (chief complaint) Viral URI with cough 4 Pravin Aqib. [address] [place], [place], [address], [place]. tel:[phone] [facility], [address] [facility], [place], [place], [address], [place] tel:[phone] [place] Semi-Annual (chief complaint) Disorder of the skin [...] fibrillation, unspecified type 4 Pravin Aqib. [address] [place], [place], [address], [place]. tel:[phone] [facility], [address] [facility], [place], [place], [address], [place] tel:[phone] [place] Encounter for nutritional assessment 4 Normile Karen. [address] [place], [place], [id number], [place]. tel:[phone] [facility], [address] [facility], [place], [place], [address], [place] tel:[phone] [place] Encounter for rehabilitation evaluation 4 Gerald Yeh. [address] [facility] [place], [place], [address]. tel:[phone] [facility], [address], [place], [place], [address], [place] tel:[phone] [place] Encounter for rehabilitation evaluation 4 Josh Hayes. [address] [place], [place], [id number], [place]. tel:[phone] [facility], [address], [place], [place], [address], [place] tel:[phone] [place] Acute Visit (chief complaint) HypomagnesemiaFacial skin lesion Aug- 4 Pravin Aqib. [address] [place], [place], [id number], [place]. tel:[phone] [facility], [address], [place], [place], [address], [place] tel:[phone] [place] No Information Jul-2 4 Pravin Aqib. [address] [place], [place], [id number], [place]. tel:[phone] [facility], [address], [place], [place], [id number], [place] tel:[phone] [place] Follow-up (chief complaint) Hypomagnesemia Jul- 4 Aileen Marysol. [address] [place], [place], [address], [place]. tel:[phone] [facility], [address], [place], [place], [address], [place] tel:[phone] [place] Follow-up (chief complaint) Acquired absence of left breast and nippleLymphedema, not elsewhere classified Jul-0 4 Aileen Marysol. [address] [place], [place], [address], [place]. tel:[phone] [facility], [address], [place], [place], [address], [place] tel:[phone] [place] medication (chief complaint) Hypomagnesemia Jun-0 4 Bhagavatula Ujjwala. [address] [place], [place], [id number], [place]. tel:[phone] [facility], [address], [place], [place], [id number], [place] tel:[phone] [place] No Information May- 4 Bhagavatula Ujjwala. [address] [place], [place], [address], [place]. tel:[phone] [facility], [address], [place], [place], [address], [place] tel:[phone] [place] Type 2 diabetes mellitus with hyperglycemia, with long-term current use of insulinLong term (current) use of insulin Saroj-0 4 Pitsiladis Meli. [address] [facility] [address] [place], [address], [place]. tel:[phone] [facility], [address] [facility] [address], [place], [place], [address], [place] tel:[phone] [place] Encounter for rehabilitation evaluation 4 Josh Hayes. [address] [facility] [address], [address], [place]. tel:[phone] [facility], [address] [facility], [place], [place], [address], [place] tel:[phone] [place] No Information 4 Os Roxy. [address] [place], [place], [id number], [place]. tel:[phone] [facility], [address] [facility] [address], [place], [place], [address], [place] tel:[phone] [place] Encounter for nutritional assessmentOther obesity 4 Normile Karen. [address] [place], [place], [address], [place]. tel:[phone] [facility], [address] [facility], [place], [place], [address], [place] tel:[phone] [place] No Information 4 Os Roxy. [address] [place], [place], [address], [place]. tel:[phone] [facility], [address], [place], [place], [id number], [place] tel:[phone] [place] Semi-Annual (chief complaint) Encounter for general adult medical examination without abnormal findingsCardiac arrhythmia, unspecified cardiac arrhythmia typeHyperlipidemia, unspecified hyperlipidemia typeType 2 diabetes mellitus with diabetic chronic kidney disease, unspecified CKD stage, unspecified whether nursing home insulin useCurrent use of insulinType 2 diabetes mellitus with diabetic peripheral angiopathy without gangrene, unspecified whether intermediate designer insulin useType 2 diabetes mellitus with diabetic polyneuropathy, unspecified whether nursing home insulin use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Autoimmune thyroiditisPrimary hyperparathyroidismLiv er transplantedHypertensi ve chronic kidney disease with stage 1 through stage 4 chronic kidney disease, or unspecified chronic kidney diseaseStage 3a chronic kidney diseaseOsteopenia, unspecified locationCerebral palsy, unspecified typeEdema, unspecified typeInvasive ductal carcinoma of breast, female, leftInfiltrating ductal carcinoma of breast, rightImmunosuppressed status 4 Os Roxy. [address] [facility] [address], [id number], . tel:[phone] [facility], [address] [facility] [address] [place] [address], [id number], tel:[phone] [place] No Information Mar-2 4 Os Roxy. [address], [address], [place]. tel:[phone] [facility], [address] [facility] [address], [place], [place], [id number], tel:[phone] [place] Follow-up (chief complaint) Cerebral palsy, unspecified typeMalignant neoplasm of right female breast, unspecified estrogen receptor status, unspecified site of breast Mar-2 4 Os Roxy. [address] [place], [place], [address], [place]. tel:[phone] [facility], [address], [place], [place], [id number], tel:[phone] [place] Hypertension, unspecified type Mar-2 0- 4 Os Roxy. [address] [place], [place], [address], [place]. tel:[phone] [facility], [address] [facility] [address], [place], [place], [address], [place] tel:[phone] [place] [facility] Admit (chief complaint) Type 2 diabetes mellitus with diabetic chronic kidney disease, unspecified CKD stage, unspecified whether nursing home insulin useStage 3a chronic kidney diseaseEdema, unspecified typeImmunosuppressed statusHypertension, unspecified typeMalignant neoplasm of right female breast, unspecified estrogen receptor status, unspecified site of breast 4 Os Roxy. [address] [place], [place], [address], [place]. tel:[phone] [facility], [address] [facility] [address], [place], [place], [address], [place] tel:[phone] [place] Malignant neoplasm o f unspecified site of unspecified female breast 4 Munir Retana. [address], [place], [place], [address], [place]. tel:[phone] [facility], [address] [facility], [place], [place], [address], [place] tel:[phone] [place] Sebaceous cyst 4 Phyllis Woody. [address] [place], [place], [address], [place]. tel:[phone] [facility], [address] [facility] [address], [place], [place], [address], [place] tel:[phone] [place] Malignant neoplasm o f unspecified site of unspecified female breast 4 Os Roxy. [address] [place], [place], [address], [place]. tel:[phone] [facility], [address], [place], [place], [address], [place] tel:[phone] [place] Malignant neoplasm o f unspecified site of left female breast 4 Tarun Steinberg. [address] [place], [place], [id number], [place]. tel:[phone] [facility], [address], [place], [place], [address], [place] tel:[phone] [place] Edema, unspecified type 3 Aileen Gregg. [address] [facility] [address] [place], [address], [place]. tel:[phone] [facility], [address], [place], [place], [address], [place] tel:[phone] [place] No Information 3 Os Roxy. [address], [place], [place], [address], [place]. tel:[phone] [facility], [address] [facility] [address], [place], [place], [address], [place] tel:[phone] [place] Encounter for nutritional assessmentClass 1 obesity with serious comorbidity and body mass index (BMI) of 33.0 to 33.9 in adult, unspecified obesity typeBody mass index [BMI] 33.0-33.9, adult 3 Luis F Jones. [address], [place], [place], [address], [place]. tel:[phone] [facility], [address] [facility] [address], [place], [place], [address], [place] tel:[phone] [place] Malignant neoplasm o f unspecified site of left female breast 3 Munir Retana. [address], [place], [address], [place]. tel:[phone] [facility], [address], [place], [place], [address], [place] tel:[phone] [place] Semi-Annual (chief complaint) Type 2 diabetes mellitus with stage 2 chronic kidney disease, with long-term current use of insulinLong term (current) use of insulin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Autoimmune thyroiditisPrimary hyperparathyroidismHyp ertensive renal disease, stage 1 through stage 4 or unspecified chronic kidney diseaseLiver transplantedImmunosupp ressed statusCerebral palsy, unspecified type 3 Aileen Gregg. [address], [place], [place], [address], [place]. tel:[phone] [facility], [address] [facility], [place], [place], [address], [place] tel:[phone] [place] Encounter for rehabilitation evaluation 3 Davian River. [address] [facility], [place], [address]. tel:[phone] [facility], [address] [facility] [address], [place], [place], [address], [place] tel:[phone] [place] Encounter for rehabilitation evaluation 3 Gerald Yeh. [address] [facility] [address] [place], [place], [id number]. tel:[phone] [facility], [address] [facility] [address], [place], [place], [address], [place] tel:[phone] [place] Type 2 diabetes mellitus with diabetic peripheral angiopathy without gangrene, with long-term current use of insulinLong term (current) use of insulin 3 No Information [facility], [address] [facility], [place], [place], [address], [place] tel:[phone] [place] No Information 3 Os Roxy. [address], [place], [place], [address], [place]. tel:[phone] [facility], [address] [facility] [address], [place], [place], [address], [place] tel:[phone] [place] F/U (chief complaint)S ebaceous Cyst (chief complaint) [...] thyroiditisSebaceous cyst Jul- 3 Ephraim Gomez. [address] [place], [address], [place]. tel:[phone] [facility], [address], [place], [place], [address], [place] tel:[phone] [place] Encounter for nutritional assessmentClass 1 obesity without serious comorbidity with body mass index (BMI) of 32.0 to 32.9 in adult, unspecified obesity typeBody mass index [BMI] 32.0-32.9, adult March- 3 Normile Karen. [address], [place], [address], [place]. tel:[phone] [facility], [address], [place], [place], [address], [place] tel:[phone] [place] Semi-Annual (chief complaint) Cardiac arrhythmia, unspecified cardiac arrhythmia typeCerebral palsy, unspecified typeOsteopenia, unspecified locationPure hypercholesterolemiaCu rrent use of insulinStage 3a chronic kidney diseaseType 2 diabetes mellitus with diabetic chronic kidney disease, unspecified CKD stage, unspecified whether intermediate designer insulin useType 2 diabetes mellitus with diabetic peripheral angiopathy without gangrene, unspecified whether intermediate designer insulin useType 2 diabetes, controlled, with neuropathyHypothyroidi sm due to Quinton's thyroiditisAutoimmune thyroiditisPrimary hyperparathyroidismHyp ertensive renal disease, stage 1 through stage 4 or unspecified chronic kidney diseaseInvasive ductal carcinoma of breast, female, leftLiver transplantedImmunosupp ressed status 3 Os Roxy. [address], [place], [place], [address], [place]. tel:[phone] [facility], [address], [place], [place], [address], [place] tel:[phone] [place] No Information Apr-0 4-202 3 Os Roxy. [address], [place], [address], [place]. tel:[phone] [facility], [address], [place], [place], [address], [place] tel:[phone] [place] Oropharyngeal dysphagia Mar-2 8-202 3 Caselden Kristin. [address], [place], [address], [place]. tel:[phone] [facility], [address], [place], [place], [address], [place] tel:[phone] [place] Oropharyngeal dysphagia Mar-2 0-202 3 Caselden Kristin. [address] [facility] [address], [address], [place]. tel:[phone] [facility], [address] [facility] [address] [facility], [place], [place], [address], [place] tel:[phone] [place] Oropharyngeal dysphagia Mar-1 5-202 3 Caselden Kristin. [address], [place], [address], [place]. tel:[phone] [facility], [address] [facility] [facility], [place], [place], [address], [place] tel:[phone] [place] No Information Mar-0 8-202 3 Os Roxy. [address], [address], [place]. tel:[phone] [facility], [address], [place], [place], [address], [place] tel:[phone] [place] Oropharyngeal dysphagia Mar-0 2-202 3 Caselden Kristin. [address] [facility], [address], [place]. tel:[phone] [facility], [address], [place], [place], [address], [place] tel:[phone] [place] Oropharyngeal dysphagia Dec-1 5-202 3 Caselden Kristin. [address] [place], [place], [address], [place]. tel:[phone] [facility], [address], [place], [place], [address], [place] tel:[phone] [place] Dysphagia, unspecifi ed typeOther dysphagia b-0 8202 3 Casesaad Kristin. [address] [place], [place], [address], [place]. tel:[phone] [facility], [address] [facility], [place], [place], [address], [place] tel:[phone] [place] Non-recurrent abdominal hernia without obstruction or gangrene, unspecified hernia type Dec-0 8 3 Os Roxy. [address] [facility] [place], [address], [place]. tel:[phone] [facility], [address] [facility] [address] [facility], [place], [place], [address], [place] tel:[phone] [place] [facility] (chief complaint)[facility] Evaluation (chief complaint) Cerebral palsy, unspecified typeLiver transplantedStage 3a chronic kidney disease [id number] 3 [address]. [address] [facility] [address] [place], [place], [id number], [place]. tel:[phone] [facility], [address], [place], [place], [id number], [place] tel:[phone] [place] No Information Dec-0 3- 3 No Information [facility], [address], [place], [place], [id number], [place] tel:[phone] [place] Dysphagia, unspecifi ed type Jac-3 0 3 No Information [facility], [address] [facility], [place], [place], [id number], [place] tel:[phone] [place] Difficulty in walkin g, not elsewhere classified 3 [place] [place]. [address], [place], [address]. tel:[phone] [facility], [address], [place], [place], [id number], [place] tel:[phone] [facility] DC (chief complaint) Type 2 diabetes mellitus with diabetic chronic kidney disease, unspecified CKD stage, unspecified whether nursing home insulin useStage 3a chronic kidney diseaseLiver transplantedAbdominal hernia without obstruction and without gangrene, recurrence not specified, unspecified hernia typeImmunosuppressed statusCerebral palsy, unspecified type 3 Deep Morales. [address], [place], [place], [id number], [place]. tel:[phone] [facility], [address] [facility], [place], [place], [id number], [place] tel:[phone] [place] SNF ADMIT (chief complaint) Non-recurrent abdominal hernia with obstruction without gangrene, unspecified hernia typeLiver transplantedImmunosupp ressed statusType 2 diabetes mellitus with diabetic chronic kidney disease, unspecified CKD stage, unspecified whether intermediate designer insulin useCardiac arrhythmia, unspecified cardiac arrhythmia typeLeukocytosis, unspecified type 3 Deep Morales. [address], [place], [place], [id number], [place]. tel:[phone] [facility], [address], [place], [place], [id number], [place] tel:[phone] [place] No Information 3 [address]. [address] [place], [place], [id number], [place]. tel:[phone] [facility], [address], [place], [place], [id number], [place] tel:[phone] [place] Encounter for rehabilitation evaluation 2 [address]. [address], [place], [address]. tel:[phone] [facility], [address] [facility], [place], [place], [id number], [place] tel:[phone] [place] Encounter for rehabilitation evaluationAlteration in performance of activities of daily livingMild cognitive impairment, so stated 2 Gerald Yeh. [address] [place], [place], [id number]. tel:[phone] [facility], [address] [facility], [place], [place], [id number], [place] tel:[phone] [place] Encounter for nutritional assessmentExcessive carbohydrate intakeDeficiency of other specified nutrient elementsOther obesity 2 Normile Karen. [address], [place], [place], [id number], [place]. tel:[phone] [facility], [address] [address], [place], [place], [id number], [place] tel:[phone] [place] Hypertensive chronic kidney disease with stage 1 through stage 4 chronic kidney disease, or unspecified chronic kidney diseaseHyperlipidemia, unspecified hyperlipidemia typeType 2 diabetes mellitus with diabetic chronic kidney disease, unspecified CKD stage, unspecified whether intermediate designer insulin useCurrent use of insulin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Autoimmune thyroiditisPrimary hyperparathyroidismSta ge 3a chronic kidney diseaseImmunosuppresse d statusLiver transplantedCerebral palsy, unspecified typeHX: breast cancerDiabetes mellitus with peripheral vascular diseaseType 2 diabetes, controlled, with neuropathy 2 [address]. [address], [place], [place], [id number], [place]. tel:[phone] [facility], [address] [address], [place], [place], [id number], [place] tel:[phone] [place] No Information 2 Os Royx. [address], [place], [place], [id number], [place]. tel:[phone] [facility], [address], [place], [place], [id number], [place] tel:[phone] [place] PHV (chief complaint) HerniaLiver transplantedHistory of small bowel obstruction Sep- 2 Os Roxy. [address] [place], [place], [id number], [place]. tel:[phone] [facility], [address], [place], [place], [address], [place] tel:[phone] [place] Liver transplantedHernia Sep- 2 No Information [facility], [address], [place], [place], [id number], [place] tel:[phone] [place] No Information 2 [address]. [address], [place], [place], [id number], [place]. tel:[phone] [facility], [address], [place], [place], [id number], [place] tel:[phone] [place] No Information 2 [address]. [address], [place], [place], [id number], [place]. tel:[phone] [facility], [address], [place], [place], [id number], [place] tel:[phone] [place] Hypertension, unspecified type 2 No Information [facility], [address], [place], [place], [id number], [place] tel:[phone] [place] Encounter for rehabilitation evaluationAlteration in performance of activities of daily livingMild cognitive impairment, so stated 2 Gerald Y[address]. [address] [place], [place], [id number]. tel:[phone] [facility], [address], [place], [place], [id number], [place] tel:[phone] [place] Encounter for nutritional assessmentAbnormal weight gain 2 Normile Kraen. [address], [place], [place], [id number], [place]. tel:[phone] [facility], [address], [place], [place], [id number], [place] tel:[phone] [place] Semiannual (chief complaint) Hypertensive chronic kidney disease with stage 1 through stage 4 chronic kidney disease, or unspecified chronic kidney diseaseHyperlipidemia, unspecified hyperlipidemia typeCurrent use of insulin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Autoimmune thyroiditisPrimary hyperparathyroidismLiv er transplantedStage 3a chronic kidney diseaseHx of left mastectomyImmunosuppre ssed statusCerebral palsy, unspecified type 2 [address]. [address], [place], [place], [id number], [place]. tel:[phone] [facility], [address], [place], [place], [address], [place] tel:[phone] [place] Port-A-Cath in place Hx of left mastectomy 2 [address]. [address], [place], [place], [id number], [place]. tel:[phone] [facility], [address], [place], [place], [id number], [place] tel:[phone] [place] Liver transplanted 2 Os Roxy. [address] [place], [place], [id number], [place]. tel:[phone] [facility], [address], [place], [place], [id number], [place] tel:[phone] [place] No Information 1 No Information [facility], [address], [place], [place], [id number], [place] tel:[phone] [place] Type 2 diabetes mellitus without complication, unspecified whether nursing home insulin use 1 Os Roxy. [address], [place], [place], [id number], [place]. tel:[phone] [facility], [address], [place], [place], [id number], [place] tel:[phone] [place] Encounter for nutritional assessmentDiabetes education, encounter for 1 Sara Pool. [address], [place], [address]. tel:[phone] [facility], [address], [place], [place], [id number], [place] tel:[phone] [place] Encounter for rehabilitation evaluation 1 [place] [place]. [address] [facility], [place], [address]. tel:[phone] [facility], [address], [place], [place], [id number], [place] tel:[phone] [place] Encounter for rehabilitation evaluationMild cognitive impairment, so statedAlteration in performance of activities of daily living 1 Gerald Yeh. [address] [place], [place], [id number]. tel:[phone] [facility], [address], [place], [place], [id number], [place] tel:[phone] [place] PEE (chief complaint) Encounter for general adult medical examination without abnormal findingsEncounter for screening for respiratory tuberculosisHypertensi on, unspecified typeSBE (subacute bacterial endocarditis) prophylaxis candidateCardiac arrhythmia, unspecified cardiac arrhythmia typeHyperlipidemia, unspecified hyperlipidemia typeType 2 diabetes mellitus without complication, unspecified whether nursing home insulin useCurrent use of insulin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Autoimmune thyroiditisPrimary hyperparathyroidismVit campo D deficiencyHx of tracheostomyLiver transplantedHX: breast cancerHx of left mastectomyPersonal history of other malignant neoplasm of skinImmunosuppressed statusGout, unspecified cause, unspecified chronicity, unspecified siteOsteopenia, unspecified locationCerebral palsy, unspecified typeEdema, unspecified type 1 [address]. [address] [place], [place], [id number], [place]. tel:[phone] [facility], [address] [place] [address], [id number], [place] tel:[phone] [place] HX: breast cancerCardiac arrhythmia, unspecified cardiac arrhythmia type 1 Sara Corine. [address] [place], [address]. tel:[phone] [facility], [address] [facility], [place], [place], [id number], [place] tel:[phone] [place] No Information 1 No Information [facility], [address] [facility], [place], [place], [address], [place] tel:[phone] [place] Intake (chief complaint) Encounter for general adult [...] Othe r Registry COVID-19 Moderna administered Source: Ot er Registry Flu-IIV3(TIV)-High Dose administered Sour ce: Other Registry COVID-19 Blippar (J&J) Mar-31-2021 unknown Sourc e: Other Registry COVID-19 Pfizer [...] er Payers Payer name Insurance type Covered green party ID Samra chicas(s) IEV 16 [id number] IEV 16 [id number] IEV 16 [id number] IEV 16 [id number] IEV 16 [id number] IEV 16 [id number] Social History Type Description Quantity Date Captured [...] Ordered: Referrals: Cardiology Appointment date/timeframe: 11/28/2021 ordered Referral Ordered: Referrals: Dermatology. Evaluate and treat (related to Facial skin lesion) ordered Appointment Seema David BOOKED Future Order: Lab Order MAGNESIU M ([id number]), Sent on: Sent Future Order: Lab Order BASIC ME TABOLIC PANEL ([id number]), Sent on: Sent Future Order: Lab Order MAGNESIU M ([id number]), Ordered on: Ordered Future Order: Lab Order BASIC ME TABOLIC PANEL ([id number]), Ordered on: Ordered Future Order: Radiology Order Zheng ne density study (by DEXA); axial skeleton (e.g., hips, pelvis, spine) ([id number]), Ordered on: Ordered Future Order: Radiology Order Ma mmogram (Screen); Bilat, 2-view study of each breast, incl computer-aided detection when performed ([id number]), Ordered on: Ordered History Of Present Illness Encounter Date Complaint History Of Prese nt Illness Semi-Annual Seema is a 69 yea rs old female who has been enrolled in the [facility]ACE program since 09/2021 and is being seen for their semiannual exam.Patient had been seen in her room at [facility].There have been no ER visits, hospital admissions, or SNF stays in the last 6 months. Collective reviewed.Diagnoses Reviewed.-No new diagnosesReferrals reviewed.Consults: w/in the last year-Dental: no dentures in place, referral made-Podiatry: seesue Gonzalez q3 months-Vision: Dr. Leiva; order in place-Endocrinology: [facility] 09/25/23-no changes made-Hem/Onc: [facility] 02/22/24-post right masectomy; med changes made; DEXA ordered-Surgery: [facility] 02/21/24-post right masectomy-Dermatology: referral in for f/u on sebacious cyst scheduled for 11/13/24-Liver transplant GI: [facility] Dr. Calderon 02/05/24: have not received notes at this [...] HCP/Brother Chuck Acute Visit Seema is a 75 yea [...] seen for an acute visit at the [facility]. She was seen and evaluated for a cough. She has been having a dry cough for a few days. She denies any fevers, chills, nausea, vomiting or any other symptoms at this time. No recent travel or no known sick contacts. Follow-up Encounter jay rueda in error Acute Visit Seema is a [...] had been seen in her room at [facility].There have been no ER visits, hospital admissions, or SNF stays in the last 6 months. Diagnoses Reviewed.-No new diagnosesReferrals reviewed.Consults: w/in the last year-Dental: no dentures in place, referral made-Podiatry: seesue Gonzalez q3 months-Vision: Dr. Leiva; order in place-Endocrinology: [facility] 09/25/23-no changes made-Hem/Onc: [facility] 02/22/24-post right masectomy; med changes made; DEXA ordered-Surgery: [facility] 02/21/24-post right masectomy-Dermatology: referral in for f/u on sebacious cyst scheduled for 11/13/24-Liver transplant GI: [facility] Dr. Jung 02/05/24: have not [...] healthcare team? to stay healthy-HCP: Invoked. HCP/Brother Chukc Acute Visit Seema is a 68 yea [...] had been seen in her room at [facility].Diagnoses Reviewed.-No new diagnosesReferrals reviewed.Consults: w/in the last year-Dental: no dentures in place, referral made-Podiatry: cristy Gonzalez q3 months-Vision: Dr. Leiva; order in place-Endocrinology: [facility] 09/25/23-no changes made-Hem/Onc: [facility] 02/22/24-post right masectomy; med changes made; DEXA ordered-Surgery: [facility] 02/21/24-post right masectomy-Dermatology: referral in for f/u on sebacious cyst scheduled for 11/13/24-Liver transplant GI: [facility] Dr. Jung 02/05/24: have not [...] seen today for a SNF admission to [facility].Ppt currently lives at [facility]: 02/05/24-02/08/24CC: scheduled right mastectomy w/ Dr. Duttaspital course summery:-Course complicated by hypotension, MARIA ESTHER, uncontrolled hyperglycemia and subsequently uncontrolled blood pressure which resolved. Discharged to rehab for further assist w/ ALEX drain management and insulin. Right breast cancers/p right mastectomy and sentinel lymph node biopsy on 02/04History of L breast cancer treated with simple mastectomy and chemotherapy, now with right breast cancer.SNF: [facility] 02/08/24-02/14/24ospital medications reviewed. Updated EMR.SNF summery: no significant medical information during SNF stay. Ppt required SNF for drain and insulin management. F/u visits:-PCP -Nan Gusman (surgeon)Today:-Ppt reports she feels well and is adjusting back at [facility]. No concerns at this time. Incision site w/o concerns for infection. ALEX drains had been emptied by [facility] prior to my arrival per ppt. BP 132/92. Stable at this time- would continue current medication regimen. Follow-up SNF Admit Seema is a 68 yea r old female who is being seen today for a SNF admission to [facility].Ppt currently lives at [facility]: 02/05/24-02/08/24CC: scheduled right mastectomy w/ Dr. Cervantesital course summery:-Course complicated by hypotension, MARIA ESTHER, [...] service. would be discharged with ALEX drain.SNF: [facility] 02/08/24-02/08/24: Hospital medications reviewed.Updated EMR.Started:-Tamoxifen 20mg daily -Multivitamin 1 chew qvfkt-Jrzjn-9 Polyunsaturated Fatty Acids 1000mg daily Changed:-Insulin Lispro [...] measuring about 100cc eachPlan:-Can return back to [facility] after ALEX drains removed and ppt is medically stable-Monitor weekly labsReviewed plan w/ nursing at [facility]. Semi-Annual Patient is a 68 year old female who has been enrolled in the PACE program since 09/2021 and is being seen for their semi annual exam. She lives at [facility] and comes to the PACE site [...] Reviewed.-No new diagnosesReferrals reviewed.Consults:-Liver transplant physician (GI): [facility], Dr. Jung- last seen 09/2022 for s/p liver transplant for cruptogenic cirrhosis. Missing meds since the spring, urgent referral to GI.-Cafeteria Cook: 10/2022- [facility]- no changes-Oncology: [facility] Dr. Coto- Continue tamoxifen for a total of at least 5 years. Mammogram due in September (oncology schedule). 2000/breast cancer stage II-III of left breast s/p masectomy w/ completed chemo on tamoxifin-continuing to take at this time for prophylaxis. -Endocrinology: [facility] endocrine- currently on numerous medications r/t DM. Last seen 2Recommended increase the 75/25 in AM to 28 units.-Dermatology: [facility] (previously doing yearly skin checks)Vision: Dr. Leiva, sees regularly.Dental: no dentures in place, referral made. Podiatry: [facility] podiatry.Screenings: Continuing to screen-Mammogram: 10/10/2022, yearly [...] needs provider visit. She lives at an [facility].Requires [facility] services for insulin administration. Her FSBS has been running in the mid s. She uses a CGM and self monitors. [...] had been seen in her room at [facility].Diagnoses Reviewed.-No new diagnosesReferrals reviewed.Consults:-Liver transplant physician (GI): [facility], Dr. Jung- last seen 09/2022 for s/p liver transplant for cruptogenic cirrosis 2000/breast cancer stage II-III of left breast s/p masectomy w/ completed chemo on tamoxifin-continuing to take at this time for prophylaxis. Follow up in 1 year.-Cafeteria Cook: 10/2022- [facility]- no changes-Oncology: [facility] Dr. Coto- Continue tamoxifen for a total of at least 5 years. Mammogram due in September (oncology schedule). Return in 6 months for f/u.-Endocrinology: [facility] endocrine- currently on numerous medications r/t DM. Last seen 2Recommended increase the 75/25 in AM to 28 units.-Dermatology: [facility] (previously doing yearly skin checks)Vision: Dr. Leiva, sees regularly.Dental: no dentures in place, referral made. Podiatry: [facility] podiatry.Screenings: Continuing to screen-Mammogram: 10/10/2022, yearly [...] is being seen today for a PHV. [facility] 12/26/22-12/29/22Dx: MARIA ESTHER and UTI-Prior to admission lico was hypotensive and labs were ordered showing a GFR 14 and creat of 3.51. Lico is a liver transplant ppt (2000) and has been following Dr. Calderon at [facility]. Discussed lab findings and they advised to send to [facility]. Lico did have a recent hernia repair in November at [facility] with complications including hemmorhagic shock and was treated for aspiration pneumonia. MARIA ESTHER was thought to be ATN in the setting of recent adverse reaction to zosyn. Ppt received IVF where creat improved to 1.5 upon discharge. Started on cipro IV on 12/27 culture negative. Discharged home to [facility].Med changes:-d/c'd clonidine -d/c'd lasix-d/c'd lisinopril-d/c'd metoprolol succinate-started metoprolol tartrate 25mg BID-resume cellcept (prescribed by Dr. Molinaday:-Ppt reports feeling better . Negative ROS. No complaints at this time. BP stable 124/82.Plan: -order CBC and BMP for in 1 week-med changes updated-appt with Dr. Calderon on 01/04/23 [facility] DC SEEMA DAVID [facility] DC SUMMARY Patient encounter date 12/20/22[facility] date [facility]21[facility] repair [facility] large [...] in the transplant clinic. --[facility] HELDPrograf 0.5mg BID continued Zestril 5mg [...] and dc order placed in chart APPOINTMENTS01/04/23 [facility] liver transplant [id number] 98.4HR 8602 96ROSNo N V F Cno [...] edema or drainage. SNF ADMIT SEEMA DAVID [facility] AD[facility]ITHP[facility] for robotic repair of large [...] the transplant clinic. MED CHANGES--Added:Cipro 500mg BID q8dIvmrdhlgoxp 100mg BID u7m--Vixpjdf:Cellcept HELDPrograf 0.5mg BID --DCAmoxTresibaMJWCSP351/82RR 16T 99, recheck 97.8HR 86 palp02 96%ROSNo N V F Cno CP SOBNo ABD PAIN diarrheaNo c/o pain whatsoever(+)BM(+)VOID(+)flatusPEGEN age appearing female NAD nontoxic appearingPSYCH very pleasant and cooperative with exam alert and orientedHEART rrr (+)s1s2 LUNG ctabABD midline incision CDI with rené, ALEX draine x2 with scant serosangEXT no edema erythema calf painSKIN no rash lesions or erythema PHV Comments: Seema clemons s a 66yo female resented to [facility] with less than 1 day of [...] to palpation, non-peritonitic. NGT was placed at [facility], decompressed overnight. Passing flatus. Also had a UA positive for infection. 1 dose of ceftriaxone and immunosuppressive medication held for a day. Tolerating the advancement in her diet. Had a BM. Deemed stable for discharge. Med changes: clonidine 0.2mg (previously 0.3mg)Today: Ppt appears comfortable has no problems and is "all better now . ROS negative.Plan: family requesting a follow up with [facility] as pt had been following (order in place)-Chuck (brother) reports [facility] appt is for 09/19/22 at 9:30a. No other concerns at this time. Semiannual Comments: Seema clemons s a 66 year old female who has been enrolled in the PACE program since 09/2021 and is being seen for their semiannual exam.Patient had been seen in her room at [facility].There have been no hospitalizations, SNF admission and/or ER visits in the last six months.CC: no concerns reported from pt nor brother/HCP Chuck.Diagnoses Reviewed.-No new diagnosesConsults:-Liver transplant physician (GI): [facility], Dr. Jung- last seen 09/2021 for s/p liver transplant for cruptogenic cirrosis 2000/breast cancer stage II-III of left breast s/p masectomy w/ completed chemo on tamoxifin-continuing to take at this time for prophylaxis. Follow up in 1 year (09/2022).-Cafeteria Cook: [facility] Dr. Blackman- Will consider changing over to [facility] practices once they determine the need for eliquis as they have been monitoring for some time. -Oncology: [facility] Dr. Coto- Discussed w/ pt, would like to keep as they have her currently on Tamoxifen-Endocrinology: [facility] endocrine- currently on numerous medications r/t DM. Last seen 3/18/22. Recommended starting a freestyle ev which has been ordered for better BS monitoring. -Dermatology: [facility]- had been following yearly for skin survalience s/p basal cell carcinoma. Had discussed keeping their upcoming appt in October and would then see [facility] derm as needed- no appt in chartVision: Dr. Leiva, sees regularly.Dental: no dentures in place, referral made. Podiatry: [facility] podiatry.Screenings: Continuing to screen-Mammogram: 10/04/21, yearly mammograms.-Colonoscopy:2015, next due in 10 years (2025)-Bone density: [...] enrollment exam.She currently is a resident at [facility]. Patient and brother/HCP, Chuck, have no concerns at this time. Diagnoses reviewed.Medications reviewed.Advance Directives discussed- pt and family is unsure at this time, would like to talk to all family members before final decision. Conversation started. -Liver transplant physician: [facility], Dr. Jung- sees regularly. -Cafeteria Cook: [facility] Dr. Blackman- currently pt is on a holter monitor, gas station service attendant determining if she should remain on eliquis. She is scheduled to see him 10/11/21. Will consider changing over to [facility] practices once they determine the need for eliquis as they have been monitoring for some time. -Oncology: [facility] Dr. Coto- Discussed w/ pt, would like to keep as they have her currently on Tamoxifen-Endocrinology: [facility] endocrine- currently on numerous medications r/t DM. Will put out a referral to [facility] endo. -Dermatology: [facility]- had been following yearly for skin survalience s/p basal cell carcinoma. Discussed keeping their upcoming appt in October and would then see [facility] derm as needed. Vision: Dr. Leiva, sees regularly.Dental: no dentures in place, referral made. Podiatry: will be transitioning to [facility] podiatry.Mammogram: 10/04/21, yearly mammograms.Bone density: last in 2019, scheduled every other year (due 2021)Colonoscopy: 2015, next due in 10 years (2025)WMM: Being able to care for self at current functional level. Intake Very pleasant wo man, accompanied by her vmnyat-lw-wuk, brother Chuck and case monitor from [facility]. The patient apparently had intake in February however decision was made to delay proceeding due to living circumstances/roommate. The roommate has unfortunately moved out due to illness and the patient is now at the head of the waiting list for [facility] assisted living.We regrettably have virtually no medical records. There are a number of notes/lists that were printed out from the [employer] system however, no PCP records nor records from any of the subspecialists that she sees ([facility]). Interestingly, the family had no awareness [...] dysphagia. Hearing is fairly good. She sees applications systems engineer, the exact extent of any vision impairment [...] at the very least:Liver transplant physician at [facility] (Dr. Calderon)Indicated that the neurology stroke physician (Dr. Carlos) is in [facility]. Faizan Cali, her applications systems engineer is in [facility] explained that if needed oncology service (likely needed as she is on maintenance tamoxifen), endocrinology (very complicated regimen), GI, surgery, cardiology would likely be transitioned to [facility] practice. I explained that this helps maintain continuity of care and allows us access to records. I indicated that [facility] it is our preferred hospital and that we strongly encourage its use somewhat negating any benefit of continuity with previous providers as they do not go to [facility]. I did not specifically address the reading aide. They are aware that there is a reading aide that goes to [facility] although I am unclear if it someone we are affiliated with.Medication, which is extensive, was updated via the list that the brother provided.Problem list was updated to the best of my ability based upon the limited information available to us. Suggestion that there was a bone density done in 2020. I cannot explicitly know why she is seeing a neurology stroke physician. The gas station service attendant seems to surround the issue of the arrhythmia, again presumed atrial fibrillation. The role of the laboratory aide is unclear. The general surgeon performed the [...] living assumes management of her medications via [facility] Instructions Date Instruction Additional Infor hetal Chemotherapy was the first line of action; tried tamoxifen where they found in ineffective and was switched to anastrazoleS/P BL mastectomyPer Oncology recommendations: Will continue Vitamin D 1000iu once daily, Anastrozole 1mg once daily, Zoledronic acid 4mg every 6 months. Surveillance: Plan for 6 monthly visit for at least 5 years and annually thereafter. Related to Malignant neoplasm of unspecified site of right female breast Patient with BL inva sive ductal carcinomaFollowed [...] in 01/2024Will continue to monitor Related to Malignant neoplasm of unspecified site of left female breast Ppt is on immunosupp ression medications due to her history of liver transplant and breast cancer Continue tacrolimus for liver transplantContinue Anastrozole for breast cancerWill continue to monitor Related to Immunodeficiency, unspecified Patient with hypothy roidism secondary to Quinton's TSH within rangePt remains asymptomatic at this timeContinue LevothyroxineWill continue to monitor Related to Autoimmune thyroiditis Patient with Type 2 DM and CKDCurrently stableWill continue to monitor Related to Type 2 diabetes mellitus with diabetic chronic kidney disease Patient with Type 2 DM and peripheral polyneuropathyAbnormal monofilament examDiscussed checking feet daily at nightOptimal control of blood sugarsWill continue to monitor Related to Type 2 diabetes mellitus with diabetic polyneuropathy Patient with Type 2 DMMost recent HgA1C 8.2Continue current management for optimal sugar levels controlPt with diabetic peripheral angiopathy as evidenced by dry, shiny, hairless LE BL as well as decreased pedal pulsesContinue statinWill continue to monitor Related to Type 2 diabetes mellitus with diabetic peripheral angiopathy without gangrene Patient with Type 2 DM with hyperglycemiaFBS numbers have improved but still mildly elevated at 177 on the morning of examContinue insulinContinue Trulicity and PrandinWill keep the same dosage for now to avoid hypoglycemiaWill check HgA1C with next visitWill continue to monitor Related to Type 2 diabetes mellitus with hyperglycemia Patient with mixed h yperlipidemiaLast lipid panel shows levels well within rangeContinue LipitorWill continue to monitor Related to Mixed hyperlipidemia History of CP docume nted in preenrollment records. Currently not following neurologist or is on any medications. Brother reports she had CP since , she used to see somebody for developmental disability. She never required braces . Cognitive delay evident HCP invoked Related to Cerebral palsy, unspecified Patient with HTN and CKD, stage 3aCurrently stableBPs have been within good rangeContinue current managementWill continue to monitor Related to Hypertensive chronic kidney disease with stage 1 through stage 4 chronic kidney disease, or unspecified chronic kidney disease Patient had Atrial F ibrillation during chemotherapySince then, she has not had another episodeSinus rhythm todayContinue anticoagulationContinue rate control with BB and CCBWill continue to monitor Related to Unspecified atrial fibrillation Patient with Type 2 DM and CKDCurrently stableWill continue to monitor Related to Chronic kidney disease, stage 3a Patient is here for Semi-Annual examCurrently stable and no acute issuesHCP is activatedNo MOLST- Full CodeWill continue to monitor and provide support Related to Encounter for general adult medical examination without abnormal findings Prograf ongoing Cont inues to follow up with [facility]- Dr Olson continue to monitor Related to Liver transplant status Patient had Afib s/p chemoSecondary hypercoagulable stateContinue EliquisWisedrick continue to monitor Related to Secondary hypercoagulable state Patient with Type 2 DM with hyperglycemiaFBS numbers have improved but still mildly elevated at 177 on the morning of examContinue insulinContinue Trulicity and PrandinWisedrick keep the same dosage for now to avoid hypoglycemiaWill check HgA1C with next visitWill continue to monitor Related to buttermaker continuous churn (current) use of insulin Patient with primary hyperparathyroidismCalcium and PTH within rangeCurrently asymptomaticPt does not want a surgeryWill continue to monitor Related to Primary hyperparathyroidism Patient with onychau xis of the toes [...] ongoing Cont inues to follow up with [facility]- Dr Olson continue to [...] next visitWill continue to monitor Related to custodial (current) use of insulin Patient with mixed h yperlipidemiaLast lipid panel shows levels well within rangeContinue LipitorWisedrick continue to monitor Related to Mixed hyperlipidemia [...] URI as multiple other participants at the [facility] have been sick with similar symptomsSymptomatic managementEncouraged [...] monthsscheduling daily Mg replacement8.9.24critical lab1.4 today at [id number] daily replacement sent recheck labs sunday Related to Hypomagnesemia critical lab1.4 toda y at [id number] daily replacement sent recheck labs sunday Related [...] I suspect they will be). Related to custodial (current) use of insulin Followed by hem/oncP [...] months. - I will obtain records from [facility]. It is likely that she would be [...] months. - I will obtain records from [facility]. It is likely that she would be [...] diabetes mellitus with diabetic polyneuropathy, unspecified whether intermediate designer insulin use Continued to be foll ow by [facility] endocrinology primarily for diabetes. 08/2023: TSH w/ reflex 3.08Ordered TSHContinue levothyroxine Related to Autoimmune thyroiditis Currently takes mult ivitamin, tums, and vit D. 08/2023 calcium 8.81 PTH 129Ordered vit D, and calcium level.Currently followed by endocrine primarily for diabetes.-No changes in regards to hyperpartathyroidism Related to Primary hyperparathyroidism Prograf ongoing [facility] ([facility]), Dr. Jung- had f/u appt on 01/04/2023 for s/p liver transplant for cruptogenic cirrosis Related to Liver transplanted BPs have been stable Continue metoprolol and diltiazemCKDGFR 64Avoid nephrotoxic medications Related to Hypertensive chronic kidney disease with stage 1 through stage 4 chronic kidney disease, or unspecified chronic kidney disease Continued to be foll ow by [facility] endocrinology primarily for diabetes. 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 Shiny hairless guzman LE. -Continue statin Related to Type 2 diabetes mellitus with diabetic peripheral angiopathy without gangrene, unspecified whether intermediate designer insulin use She is currently on eliquis and metoprolol for afib.Pt had afib during her chemotherapy tx per brother/HCP. [facility] had assessed ppt on 05/17/22 where they were going to continue the eliquis and metoprolol until they further review ppts holter and ECHO from [facility].No longer following cardiology regularlyToday: RRR Related to Cardiac arrhythmia, unspecified cardiac arrhythmia type 10/02/23 Total chol 2 67, HDL 42, TRI 467, Ratio 6.4, Non HDL 225, GLU 176-Continue LipitorLipid panel for semiMay consider increasing lipitor Related to Hyperlipidemia, unspecified hyperlipidemia type Ppt reports she feel s well and is adjusting back at [facility]. No concerns at this time. Incision site [...] never required braces . Cognitive delay evident; qflfunm08/2022 MOCA MOCA Related to Cerebral palsy, unspecified type Had period of hypote nsion which subsequently turned into hypertension. Would like to monitor BPs and if BPs remain elevated may implement their recommendations of adding clonidine 0.2mg daily Related to Hypertension, unspecified type 02/08/24 [facility] complicated by hypotension, MARIA [...] discharged with ALEX drain.Plan:-Can return back to [facility] after ALEX drains removed and ppt is [...] kidney disease, unspecified CKD stage, unspecified whether intermediate designer insulin use GFR -02/05 33-02/07 60 Avoid nephrotoxic medications Related to Stage 3a chronic kidney disease History of CP docume nted in preenrollment records. Currently not following neurologist or is on any medications. Brother reports she had CP since , she used to see somebody for developmental disability. She never required braces . Cognitive delay evident; [id number]/2022 MOCA MOCA Related to Cerebral palsy, unspecified type Ppt is immunosupress ed from [...] of acute rejection Related to Immunosuppressed status Diltiazem 24 ER 180m g dailyMetoprololControlledeGFR 60s, stage 2 currently, has historically been stage 3a Related to Hypertensive renal disease, stage 1 through stage 4 or unspecified chronic kidney disease Prograf ongoing Cell cept held d/t leurkocytosis after surgery- 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 Related to Autoimmune thyroiditis Asymptomatic.Current ly taking allopurinol. 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 Cognitive delay evident; [id number]/2022 MOCA Related to Cerebral palsy, unspecified type Diltiazem 24 ER 180m g dailyMetoprololControlled Related to Hypertensive renal disease, stage 1 through stage 4 or unspecified chronic kidney disease 03/23/23 Creatinine/G FR 0.93/67[facility] 12/26/22-12/29/22Dx: MARIA ESTHER and UTI-Prior to [...] Stage 3a chronic kidney disease 03/23/23 A1c 6.312/5/ A1c 8.510/20/22 A1C 9.5Humalog mix 75-25 inject 22units before [...] d/t leurkocytosis after surgery- [facility]- had f/u [...] left BPs stable Being fol lowed by [facility] gas station service attendant: Dr. Blackman and was switched to [facility] gas station service attendant. -Currently taking clonidine, cardizem, lisinopril, and metoprolol [...] ordered for semiContinued to be follow by [facility] endocrinology primarily for diabetes. 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 Related to Autoimmune thyroiditis A1C 10/2022: 8.5Rece nt increase in insulinDecreased pulses. Shiny hairless ugzman LE. -Continue statin Related to Type 2 diabetes mellitus with diabetic peripheral angiopathy without gangrene, unspecified whether nursing home insulin use Dose increased per e ndocrine.75/25 insulin: 28 units in the AM 20 units in PMFollowed by [facility] endocrinology. She is on numerous medications r/t DM2 that are being managed by [facility] endo: repaglinide, tresiba, and [id number] 8.5Recent hospitalization 12/2022 showed labs were ordered showing a GFR 14 and creat of 3.51. MARIA ESTHER was thought to be ATN in the setting of recent adverse reaction to zosyn. Ppt received IVF where creat improved to 1.5 upon discharge. Related to Type 2 diabetes mellitus with diabetic chronic kidney disease, unspecified CKD stage, unspecified whether nursing home insulin use [facility] -12/29/22Dx: MARIA ESTHER and UTI-Prior to [...] 3a chronic kidney disease A1C 8.5Followed by [facility] endocrinology. She is on numerous medications r/t DM2 that are being managed by [facility] endo: repaglinide, tresiba, and trulicityMost recent visit [...] further review ppts holter and ECHO from [facility]. May consider d/c'ing in the future. Today: RRR Related to Cardiac arrhythmia, unspecified cardiac arrhythmia type History of CP docume nted in preenrollment records. Currently not following neurologist or is on any medications. Brother reports she had CP since , she used to see somebody for developmental disability. She never required braces . Cognitive delay evident; /2022 MOCA Related to Cerebral palsy, unspecified type s/p surgical repaira bd incision CDI with staplesJP dremoved abd soft NT good bowel sounds (+)flauts/BMfollowup with surgeon in next 1-2 weeks no pain use pain PRNabd exam otherwise benign Related to Non-recurrent abdominal hernia without obstruction or gangrene, unspecified hernia type [facility] -12/29/22Dx: MARIA ESTHER and UTI-Prior to [...] never required braces . Cognitive delay evident; pkvymoa00/2021 MOCA 20/30 Related to Cerebral palsy, unspecified [...] ymetformin was added to med list at [facility] not on prior to hospital per PCP Recordsppt will followup with PCP after dcmed regimen can be reassessed at that time Related to Type 2 diabetes mellitus with diabetic chronic kidney disease, unspecified CKD stage, unspecified whether nursing home insulin use dc summary reports l eukocytosis [...] kidney disease, unspecified CKD stage, unspecified whether intermediate designer insulin use see 'liver transplanted' Related to [...] never required braces . 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 She will have labs drawn [id number] at [facility]. Plan: Follow up in 1 year- order in place Related to Liver transplanted Hx of liver transpla nt, currently taking tacrolimus and mycophenolate prescribed by Dr. Calderon of [facility] liver transplant clinic. Referral made for f/u. Related to Immunosuppressed status 03/24/22: Ratio 5.8, TC 167, HDL 29, LDL 98, TG 298-Increased lipitor based upon the above resultsLipid panel ordered for semi Related to Hyperlipidemia, unspecified hyperlipidemia type Endocrine: 08/23/22: Humalog 75/25 increased from 20 units bid to 24units in the AM and 20units in PM. Ppt is also on repaglinide and [id number] 02/2022: 8.5; reassess for semiCKD: GFR- 39-Avoid nephrotoxic medications Related to Type 2 diabetes mellitus with diabetic chronic kidney disease, unspecified CKD stage, unspecified whether nursing home insulin use Endocrine: 08/23/22: Humalog 75/25 increased [...] thyroiditis BPs stable 126/82Bei ng followed by [facility] gas station service attendant: Dr. Blackman and was switched to [facility] gas station service attendant. -Currently taking clonidine, cardizem, lisinopril, and metoprolol Related to Hypertensive chronic kidney disease with stage 1 through stage 4 chronic kidney disease, or unspecified chronic kidney disease History of ventral a nd umbilical hernias.History of liver transplant at [facility], should follow up with them for evaluation of this hernia and any possible need for intervention now that it is clear she is not acutely obstructed. Related to Hernia [facility] ( [facility]), Dr. 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 She will have labs drawn [id number] at [facility]. Plan: Follow up in 1 year. Related to Liver transplanted Presented to [facility] h less than 1 day of abdominal pain, nausea, and two episodes of emesis with radiographic concern for high-grade small bowel obstruction at the level of her ventral hernia. Given her history of liver transplant and the complexity of her ventral hernia, she was transferred to [facility] for further management. Upon arrival however, her abdominal pain had resolved, and on exam had no tenderness to palpation. She had an NGT that was placed at [facility], allowed to decompress overnight. She continued to pass flatus. Her NGT was removed the following day. She subsequently had a bowel movement and was advanced to a regular diet. She tolerated solid food well without further pain. Related to History of small bowel obstruction History of ventral a nd umbilical hernias.History of liver transplant at [facility], should follow up with them for evaluation of this hernia and any possible need for intervention now that it is clear she is not acutely obstructed.Will f/u w/ [facility] Related to Hernia [facility] ( [facility]), Dr. 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 She will have labs drawn [id number] at [facility]. Plan: Follow up in 1 year. Related to Liver transplanted BPs stableBeing foll owed by [facility] gas station service attendant: Dr. Blackman. May consider switching cardiologists (to [facility] provider). No recent visits since PEE.-Currently [...] and mycophenolate prescribed by Dr. Calderon of [facility] liver transplant clinic. Related to Immunosuppressed status [facility] ( [facility])Dr. 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 She will have labs drawn [id number] at [facility]. Plan: Follow up in 1 year. Related to Liver transplanted 12/2021: GFR 49-Avoid nephrotoxic medications Related to Stage 3a chronic kidney disease Pt has been followin g general surgery Dr. Aaron [facility] s/p mastectomy. She has been following up [...] Primary hyperparathyroidism 10/06/21: A1C 7.2Fol lowed by [facility] endocrinology. Last seen he is on numerous medications r/t DM2 that are being managed by [facility] endo: repaglinide, tresiba, and trulicityMost recent visit recommended a freestyle ev for better BS monitoring. This has been ordered. Related to Current use of insulin Continued to be foll ow by [facility] endocrinology primarily for diabetes. 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 09/2021 TSH 2.06Ordered TSHContinue levothyroxine Related to Autoimmune thyroiditis 10/06/21: TC 178, HD L 33, LDL 102, TG 320Currently taking lipitor Related to Hyperlipidemia, unspecified hyperlipidemia type BPs stableBeing foll owed by [facility] gas station service attendant: Dr. Blackman. May consider switching cardiologists (to [facility] provider). No recent visits since PEE.-Currently taking clonidine, cardizem, and metoprolol Related to Hypertensive chronic kidney disease with stage 1 through stage 4 chronic kidney disease, or unspecified chronic kidney disease Pt has been followin g general surgery Dr. Aaron [facility] s/p mastectomy. She has been following up every 6 months per office. Discussed w/ HCP she should keep this last appt and then she should not need to keep following up. Related to Hx of left mastectomy Port in chest from oncology Rela markus to Port-A-Cath in place Per preenrollment re cords and family. [facility], [address]. Currently seeing Dr. Calderon.Dr. Calderon prescribes and refills: fish oil, mycophenolate mofetil, and tacrolimusHCP reports best way to contact is through his RN Pau- [phone] Related to Liver transplanted 10/06/21: A1C: 7.2 Related to Ty pe 2 diabetes mellitus without complication, unspecified whether intermediate designer insulin use Hx of liver transpla nt, currently taking tacrolimus and mycophenolate prescribed by Dr. Calderon of [facility] liver transplant clinic. Related to Immunosuppressed status History of CP [...] on lasix. Related to Edema, unspecified type Asymptomatic.Current ly taking allopurinol. Related to Gout, unspecified cause, unspecified chronicity, unspecified site Bone density exams p erformed every other year per HCP. Next scan due in 2021. Currently taking vitamin D.Vit D level ordered. Related to Osteopenia, unspecified location Follows [facility] endocrin ology.Currently takes multivitamin, tums, and vit [...] tracheostomy Per preenrollment re cords and family. [facility], [address]. Currently seeing Dr. Calderon.Dr. Calderon prescribes and refills: fish oil, mycophenolate mofetil, and tacrolimusHCP reports best way to contact is through his RN Pau- [phone] Related to Liver transplanted Left mastectomy in . Yearly mammograms. History of breast cancer scheduled for mammogram on 10/04/21-completed. Related to HX: breast cancer Left mastectomy perf ormed in 06/2021 per HCP and pt. Scar notable upon exam, no evidence of infection at surgical site. 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 Follows [facility] every year for full body scan. Discussed keeping appt that has already been scheduled in 10/2021 and then will f/u as needed. Pt and HCP agreeable to this plan. Related to Personal history of other malignant neoplasm of skin Followed by [facility] endo crinology. Referral made to [facility] endocrinology. Currently on levothyroxine: prescirbed by [facility] electric welder. 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 Referral made to [facility] endocrinology. Currently on levothyroxine: prescirbed by [facility] electric welder. Related to Autoimmune thyroiditis She is currently [...] deformities. Pt checks feet regularly. Followed by [facility] endocrinology. Referral made to [facility] endocrinology. She is on numerous medications r/t DM2 that are being managed by [facility] endo: repaglinide, tresiba, and trulicity Related to Type 2 diabetes mellitus without complication, unspecified whether intermediate designer insulin use Normal monofilliment exam. No loss of protection, no ulcers or deformities. Pt checks feet regularly. Followed by [facility] endocrinology. Referral made to [facility] endocrinology. She is on numerous medications r/t DM2 that are being managed by [facility] endo: repaglinide, tresiba, and trulicity Related to Current use of insulin BP stable today: 122 /74Being followed by [facility] gas station service attendant: Dr. Blackman. May consider switching cardiologists (to [facility] provider) after medication changes are completed. [...]
--- OUTSIDE RECORDS SUMMARY | 2025-04-10 13:20 | XMS_ITS | Referral Summary ---
Author Organization [facility] Address [address] [place] [address] Care Team Providers Care Director Of Corporate Real Estate Name Role Phone SukhwinderMallorie shelton Stephie Primary Care Provider [phone] Encounters Date Type Department Care Team Description 04/01/2025 Refill [facility]plant [facility] [address] [place] [address] 74047 Eveline Calderon MD Liver replaced by transplant (HCC) 03/19/2025 Orders Only [facility] Transplant Department [address] [place] [address] 75175 Eveline Calderon MD 03/13/2025 Orders Only [facility] Transplant Department [address] [place] [address] 50480 Monique Capps RN Liver replaced by transplant (HCC) (Primary Dx); Immunosuppressed status (HCC) 03/06/2025 Refill [facility] [address] [place] [address] 40653 Eveline Calderon MD Liver replaced by transplant (HCC) 03/05/2025 Telephone [facility] Trans[facility] [address] [place] [address] 56590 Monique Capps RN 03/05/2025 Refill [facility] [address] [place] [address] 22299 Eveline Calderon MD Liver replaced by transplant (HCC) 03/04/2025 Results Follow-Up [facility] Transplant Department [address] [place] [address] Monique Capps RN 03/03/2025 11:00 AM EDT Follow-Up [facility] [address] [place] [address] Eveline Calderon MD Liver replaced by transplant (HCC); Immunosuppressed status (HCC) 02/05/2025 Refill [facility] [address] [place] [address] Eveline Calderon MD Liver replaced by transplant [...] a day. 09/12/20 Active FreeStyle Ev 2 [place] [facility] [place] 07/13/20 Active calcium carbonate 400 mg calcium (1,000 mg) tablet,chewable Chew and swallow 1,000 mg by mouth. 05/17/20 Active OneTouch Verio Flex meter [facility] [place] 01/25/20 Active omega-3 acid [...] DAILY 60 capsule 04/01/20 25 Active omega 4-nin-usn-fish oil 300-1,000 mg capsule capsule @@ TAKE 1 CAPSULE BY MOUTH DAILY. 28 capsule 04/01/20 25 Active mycophenolate mofetil (CELLCEPT) 250 mg capsuleIndicati ons:Liver replaced by transplant (HCC) TAKE (1) CAPSULE BY MOUTH TWICE DAILY 60 capsule 03/06/20 25 025 Discontinued omega 7-amc-cyu-fish oil 300-1,000 mg capsule capsule @@ TAKE [...] year old female recently admitted to SICU (12/09) following hemorrhagic shock after elective ventral hernia [...] nasal swab MRSA PCR. -ICU glycemic protocol. -AEROLOGIST evaluation, if ok to take po diet [...] Administration Dates Next Due Covid-19, Pfizer, mRNA, Bartholomew valent, PF 30 mcg/0.3 mL dose (for [...] Upcoming Encounters Date Type Department Care Team (Swapna Contact Info) Description 03/02/2026 11:30 AM EDT Follow-Up [facility] [address] [place] [address] Eveline Calderon MD [address] [place] [address] Medical Devices Implanted Type Area Materials Technician Device Identifier Shelf Expiration Date Model / Serial / Lot Mesh Ventral Hernia Soft Square [id number] - [id number] Implanted:Qty: 1 on 11/29/2022 by Pita Clark MD MPH at [facility] Mesh N/A: Abdomen [employer] 05/23/2027 [id number] / / [id number] Description:Verified by RK, ROBBY and JM. Procedures * Due to [place] state law, [...] - 10.8 10*3/uL 03/03/2025 4:22 PM EDT [facility] RBC 4.18 3.80 - 5.10 10*6/uL 03/03/2025 4:22 PM EDT [facility] Hemoglobin 12.4 11.7 - 15.5 g/dL 03/03/2025 4:22 PM EDT [facility] Hematocrit 38.4 35.0 - 45.0 % 03/03/2025 4:22 PM EDT [facility] MCV 91.9 80.0 - 100.0 fL 03/03/2025 4:22 PM EDT [facility] MCH 29.7 27.0 - 33.0 pg 03/03/2025 4:22 PM EDT [facility] MCHC 32.3 32.0 - 36.0 g/dL 03/03/2025 4:22 PM EDT [facility] RDW 15.0 11.0 - 15.0 % 03/03/2025 4:22 PM EDT [facility] Platelets 323 140 - 400 10*3/uL 03/03/2025 4:22 PM EDT [facility] MPV 11.1 7.5 - 12.5 fL 03/03/2025 4:22 PM EDT [facility] Neutrophil % 50.4 % 03/03/2025 4:22 PM EDT [facility] Immature Grans % 0.3 0.0 - 0.9 % 03/03/2025 4:22 PM EDT [facility] Lymphocyte % 36.5 % 03/03/2025 4:22 PM EDT [facility] Monocyte % 9.0 % 03/03/2025 4:22 PM EDT [facility] Eosinophil % 2.9 % 03/03/2025 4:22 PM EDT [facility] Basophil % 0.9 % 03/03/2025 4:22 PM EDT [facility] Neutrophil # 4.49 1.50 - 7.80 10*3/uL 03/03/2025 4:22 PM EDT [facility] Immature Grans # 0.03 <=0.03 10*3/uL 03/03/2025 4:22 PM EDT [facility] Lymphocyte # 3.30 0.85 - 3.90 10*3/uL 03/03/2025 4:22 PM EDT [facility] Monocyte # 0.80 0.20 - 0.95 10*3/uL 03/03/2025 4:22 PM EDT [facility] Eosinophil # 0.30 0.02 - 0.50 10*3/uL 03/03/2025 4:22 PM EDT [facility] Basophil # 0.10 0.00 - 0.20 10*3/uL 03/03/2025 4:22 PM EDT [facility] nRBC % 0.4 /100 WBCs 03/03/2025 4:22 PM EDT [facility] nRBC # 0.04(H) <0.01 10*3/uL 03/03/2025 4:22 PM EDT [facility] Blood Structure of peripheral vein / Unknown Venipuncture / Unknown 03/03/2025 11:05 AM EDT 03/03/2025 11:05 AM EDT us Eveline Calderon MD LAB BLOOD ORDERABLES Final Resul t [facility] [address] [place] [address], * Tacrolimus Level (03/03/2025 11:05 AM EDT) Tacrolimus, Highly Sensitive 5.7 mcg/L 03/03/2025 5:03 PM EDT [facility] Comment: No definitive therapeutic or toxic ranges have been established. Optimal blood drug levels are influenced by type of transplant, patient response, time post- transplant, co-administration of other drugs, and drug formulation. The following trough range is a suggested guideline: 5.0-20.0 mcg/L. This test was developed and its analytical performance characteristics have been determined by [facility]. It has not been cleared or approved by the FDA. This assay has been validated pursuant to the CLIA regulations and is used for clinical purposes. Blood Structure of peripheral vein / Unknown Venipuncture / Unknown 03/03/2025 11:05 AM EDT 03/03/2025 11:05 AM EDT Narrative [facility] - 03/03/2025 5:03 PM EDT [facility] Received Date: us Eveline Calderon MD LAB BLOOD ORDERABLES Final Resul t [facility]ILKERSON [address] [facility] [address] [facility], [place] [address], [place] [phone] [facility] [address] [facility] [address], [place] [address], [place] [phone] * Magnesium (03/03/2025 11:05 AM EDT) MG 1.7 1.6 - 2.4 mg/dL 03/03/2025 12:32 PM EDT [facility] Blood Structure of peripheral vein / Unknown Venipuncture / Unknown 03/03/2025 11:05 AM EDT 03/03/2025 11:05 AM EDT us Eveline Calderon MD LAB BLOOD ORDERABLES Final Resul t [facility] [address] [place] [address], * (ABNORMAL) Comprehensive Metabolic Panel (03/03/2025 11:05 AM EDT) NA 139 135 - 145 mmol/L 03/03/2025 12:32 PM EDT [facility] K 5.5(H) 3.5 - 5.3 mmol/L 03/03/2025 12:32 PM EDT [facility] Cl 107 98 - 107 mmol/L 03/03/2025 12:32 PM EDT [facility] CO2 20(L) 22 - 32 mmol/L 03/03/2025 12:32 PM EDT [facility] Anion Gap 12 5 - 15 [place] MANUAL 03/03/2025 12:32 PM EDT [facility] Glucose 278(H) 65 - 99 mg/dL 03/03/2025 12:32 PM EDT [facility] Creatinine 2.19(H) 0.50 - 1.20 mg/dL 03/03/2025 12:32 PM EDT [facility] Calcium 9.9 8.6 - 10.5 mg/dL 03/03/2025 12:32 PM EDT [facility] Total Protein 6.9 6.0 - 8.0 g/dL 03/03/2025 12:32 PM EDT [facility] Albumin 3.5 3.5 - 5.2 g/dL 03/03/2025 12:32 PM EDT [facility] Bilirubin, Total 0.3 0.2 - 1.2 mg/dL 03/03/2025 12:32 PM EDT [facility] Alkaline Phosphatase 111 35 - 129 U/L 03/03/2025 12:32 PM EDT [facility] AST 20 10 - 40 U/L 03/03/2025 12:32 PM EDT [facility] ALT 15 10 - 40 U/L 03/03/2025 12:32 PM EDT [facility] BUN 57(H) 7 - 23 mg/dL 03/03/2025 12:32 PM EDT [facility] eGFR 24(L) >=60 mL/min/1 .73m2 [facility] MANUAL 03/03/2025 12:32 PM EDT [facility] Comment:The estimated glomer [...] Globulin, Total 3.4 2.1 - 4.2 g/dL [facility] MANUAL 03/03/2025 12:32 PM EDT [facility] A/G Ratio 1.0(L) 1.5 - 3.0 [facility] MANUAL 03/03/2025 12:32 PM EDT [facility] Blood Structure of peripheral vein / Unknown Venipuncture / Unknown 03/03/2025 11:05 AM EDT 03/03/2025 11:05 AM EDT us Eveline Calderon MD LAB BLOOD ORDERABLES Final Resul t [facility] [address] [place] [address], * (ABNORMAL) Phosphorus (12/29/2022 5:16 AM EST) Phosphorus 2.2(L) 2.5 - 4.5 mg/dL 12/29/2022 6:12 AM EST [facility] Blood Structure of peripheral vein / Unknown Venipuncture / Unknown 12/29/2022 5:16 AM EST 12/29/2022 5:38 AM EST Maycol Flores MD LAB BLOOD ORDERABLES Final Resu lt [facility] [address] [place] [address], * (ABNORMAL) Hemoglobin A1c (05/10/2017 4:19 PM EDT) Hemoglobin A1C 6.8(H) <5.7 [facility] Comment: UNITS OF MEASURE: % of [...] for children. eAG (MG/DL) 148 () (calc) [facility] eAG (MMOL/L) 8.2 () (calc) [facility] 05/10/2017 4:19 PM EDT 05/10/2017 5:43 PM EDT Eveline Calderon MD LAB BLOOD ORDERABLES Final Resul t [facility] [address] [facility] [address], [place] [address], * Vitamin D, 25-Hydroxy, Total, Immunoassay (07/04/2012 11:33 AM EDT) Vitamin D 25 Oh 41 30 - 100 ng/mL [facility] Comment: Vitamin D Status 25-OH Vitamin D Deficiency: <10 ng/mL Insufficiency: 10-30 ng/mL Sufficiency: 30-100 ng/mL Toxicity: >100 ng/mL 07/04/2012 11:3 3 AM EDT 07/04/2012 12:01 PM EDT Ricardo Mejia MD LAB BLOOD ORDERABLES Final Resul t Performing Organization Address City/[facility]/ZIP Co de Phone Number [facility] [address] [place] [address], * PTH, Intact (without Calcium) (07/04/2012 11:33 AM EDT) Parathyroid Intact 60 12 - 65 pg/mL [facility] 07/04/2012 11:3 3 AM EDT 07/04/2012 12:01 PM EDT Ricardo Mejia MD LAB BLOOD ORDERABLES Final Resul t Performing Organization Address [facility] de Phone Number [facility] [email or web address] [facility] [address] [place] [address], from Last 3 Months or Most Recently Relevant to Health Maintenance Additional Health Concerns Infection Onset 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
--- OUTSIDE RECORDS SUMMARY | 2025-04-10 13:20 | XMS_ITS | Encounter Summary ---
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 Not on fi le Not on file documented as of this encounter Plan of Treatment Upcoming Encounters Date Type Department Care Team (Late st Contact Info) Description 03/02/2026 11:30 AM EDT Follow-Up [facility] Transplant Services [address] [place], [place] [id number] Eveline Calderon MD [address] [place] [address] documented as of this encounter Visit Diagnoses Not on filedocumented in this encounter Additional Health Concerns Infection Onset Date Last Indicated Resolved Time 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
[2025-04-10 13:28] LABS: MANUAL DIFF FLAG NO
[2025-04-10 14:07] LABS: Basophils Absolute Auto 0.1 X10*3/uL (0.0-0.2); Basophils Percent Auto 0.9 % (0-2); Eosinophils Absolute Auto 0.4 X10*3/uL (0.0-0.4); Eosinophils Percent Auto 3.9 % (0-4); Hematocrit 34.7 % (37.0-47.0); Hemoglobin 11.4 g/dl (12.0-16.0); Imm Gran Abs Auto 0.04 X10*3/uL (0.00-0.03); Imm Gran Pct Auto 0.4 % (0.0-0.4); Lymphocytes Absolute Auto 4.4 X10*3/uL (1.2-4.9); Lymphocytes Percent Auto 45.1 % (20-40); Mean Corpuscular HGB Conc 32.9 g/dl (31.0-35.0); Mean Corpuscular Hemoglobin 30.2 pg (27.0-33.0); Mean Corpuscular Volume 91.8 fL (80.0-98.0); Mean Platelet Volume 10.6 fL (9.4-12.3); Monocytes Absolute Auto 1.1 X10*3/uL (0.1-1.2); Monocytes Percent Auto 11.1 % (2-11); NRBC Pct Auto 0.9 /100WBC (0.0-0.2); Neutrophils Absolute Auto 3.8 x10*3/uL (2.0-8.3); Neutrophils Percent Auto 38.6 % (45-73); Platelet Count 328 X10*3/uL (160-400); Red Blood Count 3.78 X10*6/uL (4.20-5.50); Red Cell Distribution Width 15.7 % (11.0-16.0); White Blood Count 9.9 X10*3/uL (4.8-10.8)
[2025-04-10 14:37] LABS: Anion Gap 13 (12-20); Blood Urea Nitrogen 66 mg/dL (9-16); Calcium 10.4 mg/dL (8.4-10.2); Carbon Dioxide 18 mmol/L (22-29); Chloride 112 mmol/L (96-108); Estimated Glomerular Filt Rate 23; Glucose Random 164 mg/dL (60-115); Potassium 5.4 mmol/L (3.3-5.1); Sodium 138 mmol/L (135-145)
== END 2025-04-10 13:17 | disposition home or self-care (01) ==
LOC: HO.LAB 13:16
PROVIDERS: Visit Provider Internal Medicine
DX: N18.31 Chronic kidney disease, stage 3a (principal)
CPT/HCPCS: 36415; 80048; 85025

== ENCOUNTER 2025-04-16 13:26 | Outpatient (REF) | payer OTHER, SELFPAY ==
--- OUTSIDE RECORDS SUMMARY | 2025-04-16 13:38 | XMS_ITS | Encounter Summary ---
Author Organization [facility] Address [address] [place] [address] Care Team Providers Care Television Announcer Name Role Phone SukhwinderMallorie shelton Stephie Primary Care Provider [phone] Encounter Details Date Type Department Care Team (Late st Contact Info) Description 08/29/2017 Transplant Conversio n Encounter [facility] Health Information Management [address] [place] [address] Provider, [facility] Social History Tobacco Use Types Packs/Day Years [...] Info) Description 03/02/2026 11:30 AM EDT Follow-Up [facility] Transplant Services [address] [place] [address] Eveline Calderon MD [address] [place] [address] documented as of this encounter Visit Diagnoses Not on filedocumented in this encounter Additional Health Concerns Infection Onset Date Last Indicated Resolved Time COVID-19 - Confirmed infecti on Comment:[facility] 12/28/2020 12/28/2020 01/18/2021 3:47 PM EST R/O Respiratory Virus Infection 12/26/2022 3 12/26/2022 10:05 PM EST R/O Influenza 12/26/2022 12/26/2022 12/26/2022 10: 05 PM EST COVID-19 - Suspected infection 12/26/2022 12/26/2022 12/26/2022 10:05 PM EST VRE Enterococcus 12/26/2022 12/26/2022 documented as of this encounter Care Teams Television Announcer Relationship Specialty Start Date End Date Mallorie Draper [facility] [place] [address] PCP - General Internal Medicine 01/21/24 documented as of this encounter
[2025-04-16 14:01] LABS: MANUAL DIFF FLAG NO
[2025-04-16 14:31] LABS: Basophils Absolute Auto 0.1 X10*3/uL (0.0-0.2); Basophils Percent Auto 0.8 % (0-2); Eosinophils Absolute Auto 0.5 X10*3/uL (0.0-0.4); Eosinophils Percent Auto 5.1 % (0-4); Hematocrit 35.1 % (37.0-47.0); Hemoglobin 11.2 g/dl (12.0-16.0); Imm Gran Abs Auto 0.03 X10*3/uL (0.00-0.03); Imm Gran Pct Auto 0.3 % (0.0-0.4); Lymphocytes Absolute Auto 3.3 X10*3/uL (1.2-4.9); Lymphocytes Percent Auto 36.2 % (20-40); Mean Corpuscular HGB Conc 31.9 g/dl (31.0-35.0); Mean Corpuscular Hemoglobin 29.8 pg (27.0-33.0); Mean Corpuscular Volume 93.4 fL (80.0-98.0); Mean Platelet Volume 10.4 fL (9.4-12.3); Monocytes Percent Auto 10.7 % (2-11); NRBC Pct Auto 0.9 /100WBC (0.0-0.2); Neutrophils Absolute Auto 4.3 x10*3/uL (2.0-8.3); Neutrophils Percent Auto 46.9 % (45-73); Platelet Count 348 X10*3/uL (160-400); Red Blood Count 3.76 X10*6/uL (4.20-5.50); Red Cell Distribution Width 15.9 % (11.0-16.0); White Blood Count 9.1 X10*3/uL (4.8-10.8)
[2025-04-16 14:50] LABS: Anion Gap 17 (12-20); Blood Urea Nitrogen 90 mg/dL (9-16); Calcium 9.8 mg/dL (8.4-10.2); Carbon Dioxide 21 mmol/L (22-29); Chloride 108 mmol/L (96-108); Estimated Glomerular Filt Rate 18; Glucose Random 242 mg/dL (60-115); Iron 94 mcg/dL (30-160); Magnesium 1.8 mg/dL (1.6-2.6); Parathyroid Hormone Intact 135.2 pg/mL (8.7-77.1); Percent Iron Saturation 33 % (15-50); Phosphorus 3.5 mg/dL (2.7-4.5); Potassium 5.7 mmol/L (3.3-5.1); Sodium 140 mmol/L (135-145); Total Iron Binding Capacity 281 mcg/dL (228-428); Unsaturated Iron Binding 187 ug/dL; Uric Acid 5.2 mg/dL (2.4-5.7)
[2025-04-16 15:07] LABS: Ferritin 183 ng/mL (10-250); Vitamin D 25-OH Total 36.7 ng/mL (>30)
== END 2025-04-16 13:27 | disposition home or self-care (01) ==
LOC: HO.LAB 13:26
PROVIDERS: Visit Provider Internal Medicine
DX: N18.31 Chronic kidney disease, stage 3a (principal); R80.8 Other proteinuria
CPT/HCPCS: 36415; 80048; 82306; 82728; 83540; 83735; 83970; 84100; 84550; 85025

== ENCOUNTER 2025-05-14 15:28 | Outpatient (REF) | payer OTHER, SELFPAY ==
[2025-05-14 15:42] LABS: MANUAL DIFF FLAG NO
[2025-05-14 16:32] LABS: Appearance Urine Clear; Color Urine Yellow; Glucose Urine UA Negative (Negative); Leukocyte Esterase Urine Negative (Negative); Nitrite Urine Negative (Negative); PH 5.5 (5.0-9.0); Specific Gravity - Urine 1.015 (1.005-1.025); UMIC TRIGGER UA YES; Urine Blood Negative (Negative); Urine Ketones Negative (Negative); Urine Protein 100 (2+) mg/dL (Neg-Trace)
[2025-05-14 16:37] LABS: Bacteria Urine None Seen (None Seen); Hyaline Casts Urine 0-2 /LPF (0-2); RBC Urine 0-2 /HPF (0-2); Squamous Epithelial Cell Urine 0-2 /HPF (0-2); WBC Urine 0-5 /HPF (0-5)
[2025-05-14 16:40] LABS: Basophils Absolute Auto 0.1 X10*3/uL (0.0-0.2); Basophils Percent Auto 0.6 % (0-2); Eosinophils Absolute Auto 0.4 X10*3/uL (0.0-0.4); Eosinophils Percent Auto 3.5 % (0-4); Hematocrit 31.5 % (37.0-47.0); Hemoglobin 9.9 g/dl (12.0-16.0); Imm Gran Abs Auto 0.04 X10*3/uL (0.00-0.03); Imm Gran Pct Auto 0.4 % (0.0-0.4); Lymphocytes Absolute Auto 4.3 X10*3/uL (1.2-4.9); Lymphocytes Percent Auto 39.1 % (20-40); Mean Corpuscular HGB Conc 31.4 g/dl (31.0-35.0); Mean Corpuscular Hemoglobin 29.5 pg (27.0-33.0); Mean Corpuscular Volume 93.8 fL (80.0-98.0); Mean Platelet Volume 10.9 fL (9.4-12.3); Monocytes Absolute Auto 1.1 X10*3/uL (0.1-1.2); Neutrophils Absolute Auto 5.1 x10*3/uL (2.0-8.3); Neutrophils Percent Auto 46.4 % (45-73); Platelet Count 331 X10*3/uL (160-400); Red Blood Count 3.36 X10*6/uL (4.20-5.50); White Blood Count 11.1 X10*3/uL (4.8-10.8)
--- OUTSIDE RECORDS SUMMARY | 2025-05-14 16:40 | XMS_ITS | Encounter Summary ---
Author Organization [facility] Address [address] [place] [address] Care Team Providers Care Jackscrew Worker Name Role Phone SukhwinderMallorie shelton Stephie Primary Care Provider [phone] Encounter Details Date Type Department Care Team (Late st Contact Info) Description 08/29/2017 Transplant Conversio n Encounter [facility] Health Information Management [address] [place] [address] Provider, [facility] Social History Tobacco Use Types Packs/Day [...] Description 03/02/2026 11:30 AM EDT Follow-Up [facility] Transplant Services [address] [place] [address] Eveline Calderon MD [address] [place] [address] documented as of this encounter Visit Diagnoses Not on filedocumented in this encounter Additional Health Concerns Infection Onset Date Last Indicated Resolved Time COVID-19 - Confirmed infecti on Comment:[facility] 12/28/2020 12/28/2020 01/18/2021 3:47 PM EST R/O Respiratory Virus Infection 12/26/2022 3 12/26/2022 10:05 PM EST R/O Influenza 12/26/2022 12/26/2022 12/26/2022 10: 05 PM EST COVID-19 - Suspected infection 12/26/2022 12/26/2022 12/26/2022 10:05 PM EST VRE Enterococcus 12/26/2022 12/26/2022 documented as of this encounter Care Teams Jackscrew Worker Relationship Specialty Start Date End Date Mallorie Draper [facility] [place] [address] PCP - General Internal Medicine 01/21/24 documented as of this encounter
[2025-05-14 16:41] LABS: NRBC Pct Auto 1.3 /100WBC (0.0-0.2)
[2025-05-14 16:59] LABS: Anion Gap 14 (12-20); Blood Urea Nitrogen 72 mg/dL (9-16); Calcium 10.3 mg/dL (8.4-10.2); Carbon Dioxide 20 mmol/L (22-29); Chloride 112 mmol/L (96-108); Estimated Glomerular Filt Rate 23; Glucose Random 147 mg/dL (60-115); Potassium 5.9 mmol/L (3.3-5.1); Sodium 140 mmol/L (135-145)
[2025-05-14 18:11] LABS: Creatinine Urine 70.07 mg/dL; Protein/Creatinine Ratio, Ur 1.21 (<0.2); Total Protein Urine Random 85 mg/dL (<12)
[2025-05-14 18:18] LABS: Microalbum/Creatinine Ratio Ur 790.6 ug/mg cr (<30)
== END 2025-05-14 15:29 | disposition home or self-care (01) ==
LOC: HO.LAB 15:28
PROVIDERS: Visit Provider Internal Medicine
DX: N18.32 Chronic kidney disease, stage 3b (principal); Z94.4 Liver transplant status; N17.8 Other acute kidney failure; R80.8 Other proteinuria
CPT/HCPCS: 36415; 80048; 81001; 82043; 82570; 84156; 85025

== ENCOUNTER 2025-06-02 13:33 | Outpatient (REF) | payer OTHER, SELFPAY ==
--- OUTSIDE RECORDS SUMMARY | 2025-06-02 09:13 | XMS_ITS | Continuity of Care Document ---
[facility] Organization [facility] Address [address] [facility] [place] [address] Phone Care Team Providers Care Clinical Academic Allergist Name Role Phone Pravin PENA, Aqib Unavailable Unavailable Allergies, Adverse Reactions, Alerts Substance Reaction Status Criticality piperacillin Active No Information peanut Active Low Medications Medication Instructions Dosage Effective Dates (start - stop) Status Comments Lokelma 5 gram oral powder packet take 1 packet by oral route three times a week on Mon, Wed, Fri. Mix in 45 mL water and drink immediately rinse glass with water and drink for full dose - Active acetaminophen 325 mg tablet take 2 tablet by oral route every 8 hours as needed 650 MG - Active allopurinol 300 mg tablet TAKE 1 TABLET BY MOUTH DAILY. - Active atorvastatin 40 mg tablet TAKE 1 TABLET BY MOUTH DAILY - Active diltiazem CD 180 mg capsule,extended release 24 hr TAKE (1) CAPSULE BY MOUTH DAILY - Active Vitamin D3 25 mcg (1,000 unit) tablet @@TAKE 1 TABLET BY MOUTH DAILY. - Active Eliquis 5 mg tablet TAKE 1 TABLET BY MOUTH TWICE DAILY - Active Flintstones Gummies chewable tablet take two daily - Active levothyroxine 88 mcg tablet TAKE 1 TABLET BY MOUTH DAILY. - Active magnesium 250 mg tablet take one tablet by oral route daily - Active scheduling metoprolol tartrate 25 mg tablet TAKE 1 TABLET BY MOUTH TWICE DAILY - Active repaglinide 1 mg tablet TAKE 1 TABLET BY MOUTH THREE TIMES A DAY 15 TO 30 MINUTES BEFORE MEALS. - Active Tums 200 mg (as calcium carbonate 500 mg) chewable tablet CHEW 2 TABLETS BY MOUTH ONCE A DAY AFTER MEALS - Active TRULICITY 4.5 MG/0.5 ML PEN INJECT 0.5ML SUBCUTANEOUSLY ONCE WEEKLY ON THE SAME DAY - Active pen needle, diabetic 31 gauge x 3/16 use w/ BG checks - Active Prescr ibed by [facility] [place] FREESTYLE EV 2 SENSOR APPLY TOPICALLY TO UPPER ARMS EVERY 14 DAYS. TO BE CHANGED BY SENIOR CARE. - Active Lantus U-100 Insulin 100 unit/mL subcutaneous solution use one vial as directed from ekit now - Active lisinopril 20 mg tablet take 1 tablet by oral route every day 20 MG - Active Lantus Solostar U-100 Insulin 100 unit/mL (3 mL) subcutaneous pen Inject 37 units SQ once daily. - Active Free Style Ev Kit TRANSDERM use per endocrine orders-ODERED BY ENDO - Active mycophenolate mofetil 250 mg capsule Take 1 capsule by mouth twice daily. - Active anastrozole 1 mg tablet take [...] w/ BG check - Active Prescribed by [facility] Futuro Anti-Embolism Stockings 18-30mmhg apply to legs in the morning and take off in the evening - Active Astagraf XL 0.5 mg capsule,extended release take 1 capsule by oral route 2 times every day in the morning on an empty stomach, 1 hour before or 2 hours after a meal 0.5 MG - Active Prescribed by Dr. Kvng Jameson Ev 2 Logan use to read blood sugar QID - Active alcohol swabs use when checking BG levels - Active Advance Directives Directive Yes / No Effective Date File Name No Information Encounters Encounter Description Practice Location Reason(s) For Visit Diagnoses Date Provider [facility], [address] [facility], [place], [place], [id number], tel:[phone] [place] No Information 0 8- 5 Pravin Aqib. [address], [id number], [place]. tel:[phone] [facility], [address] [facility], [place], [place], [id number], [place] tel:[phone] [place] Facial skin lesion Apr-2 6 5 Pravin Aqib. [address], [place], [id number], [place]. tel:[phone] [facility], [address] [facility], [place], [place], [id number], [place] tel:[phone] [place] Type 2 diabetes mellitus with diabetic chronic kidney disease Apr-2 5- 5 Pravin Aqib. [address], [place], [place], [id number], [place]. tel:[phone] [facility], [address] [facility], [place], [place], [id number], [place] tel:[phone] [place] History of basal sheryl l carcinoma (BCC) excisionPersonal history of other malignant neoplasm of skin Jose Elias-1 0-202 5 Pravin Aqib. [address] [place], [place], [id number], [place]. tel:[phone] [facility], [address] [facility], [place], [place], [id number], [place] tel:[phone] [place] Acute Visit (chief complaint) Cellulitis of left hand Jose Elias-0 3-202 5 Pravin Aqib. [address] [place], [place], [id number], [place]. tel:[phone] [facility], [address] [facility] [address], [place], [place], [id number], [place] tel:[phone] [place] No Information 5 Tarun Steinberg. [address] [place], [place], [id number], [place]. tel:[phone] [facility], [address] [facility], [place], [place], [id number], [place] tel:[phone] [place] No Information 5 Tarun Steinberg. [address], [place], [place], [id number], [place]. tel:[phone] [facility], [address] [facility], [place], [place], [id number], [place] tel:[phone] [place] No Information 5 Pravin Aqib. [address], [place], [place], [id number], [place]. tel:[phone] [facility], [address] [facility], [place], [place], [address], [place] tel:[phone] [place] Encounter for rehabilitation evaluation 0 - 5 Gerald Yeh. [address] [place], [place], [id number]. tel:[phone] [facility], [address] [facility], [place], [place], [id number], [place] tel:[phone] [place] No Information 5 Pravin Aqib. [address], [place], [place], [address], [place]. tel:[phone] [facility], [address] [facility], [place], [place], [address], [place] tel:[phone] [place] Encounter for nutritional assessmentDiabetic nutritional counseling completed - 5 Normile Karen. [address], [place], [id number], [place]. tel:[phone] [facility], [address] [address], [place], [place], [address], tel:[phone] [place] No Information Apr-2 3- 5 Pravin Aqib. [address], [id number], [place]. tel:[phone] [facility], [address] [address], [place], [place], [id number], [place] tel:[phone] [place] No Information Feb- 5 Shruthi Darian Billingsley. [address], [place], [id number], [place]. tel:[phone] [facility], [address] [address], [place], [place], [id number], tel:[phone] [place] Semi-Annual (chief complaint) Encounter for general adult [...] palsy, unspecifiedSecondary hypercoagulable stateUnspecified atrial fibrillation Apr-1 0-202 5 Pravin Aqib. [address], [address], [place]. tel:[phone] [facility], [address] [address], [place], [place], [id number], [place] tel:[phone] [place] No Information Apr-0 8- 5 Mina Oswald. [address], [place], [place], [address], [place]. tel:[phone] [facility], [address] [facility] [address] [facility], [place], [place], [address], [place] tel:[phone] [place] Acute Visit (chief complaint) Onychogryphosis Feb-0 5 Pravin Aqib. [address] [place], [place], [id number], [place]. tel:[phone] [facility], [address] [facility] [address], [place], [place], [id number], [place] tel:[phone] [place] Disorder of the skin and subcutaneous tissue, unspecified 5 Tarun Steinberg. [address], [place], [place], [address], [place]. tel:[phone] [facility], [address] [facility], [place], [place], [address], [place] tel:[phone] [place] Acute Visit (chief complaint) Cough, unspecified type Dec- 5 Pravin Aqib. [address] [place], [place], [address], [place]. tel:[phone] [facility], [address] [facility] [address], [place], [place], [id number], [place] tel:[phone] [place] No Information 5 Pravin Aqib. [address] [place], [place], [address], [place]. tel:[phone] [facility], [address] [facility], [place], [place], [address], [place] tel:[phone] [place] Follow-up (chief complaint) No Information 5 Pravin Aqib. [address] [place], [place], [id number], [place]. tel:[phone] [facility], [address] [facility] [facility], [place], [place], [address], [place] tel:[phone] [place] No Information 5 Pravin Aqib. [address], [place], [place], [address], [place]. tel:[phone] [facility], [address], [place], [place], [id number], [place] tel:[phone] [place] Encounter for rehabilitation evaluation 4 Gerald Kearnsah Beth. [address] [place], [place], [id number]. tel:[phone] [facility], [address] [facility] [address] [address], [place], [place], [address], [place] tel:[phone] [place] Acute Visit (chief complaint) Viral URI with cough 4 Pravin Aqib. [address], [place], [place], [address], [place]. tel:[phone] [facility], [address], [place], [place], [id number], [place] tel:[phone] [place] Semi-Annual (chief complaint) Disorder of the skin [...] type 4 Pravin Aqib. [address], [place], [place], [address], [place]. tel:[phone] [facility], [address], [place], [place], [address], [place] tel:[phone] [place] Encounter for nutritional assessment 4 Normile Karen. [address], [place], [place], [address], [place]. tel:[phone] [facility], [address], [place], [place], [address], [place] tel:[phone] [place] Encounter for rehabilitation evaluation 4 Gerald Yeh. [address] [place], [place], [address]. tel:[phone] [facility], [address], [place], [place], [address], [place] tel:[phone] [place] Encounter for rehabilitation evaluation 4 Josh Hayes. [address], [place], [place], [address], [place]. tel:[phone] [facility], [address], [place], [place], [id number], [place] tel:[phone] [place] Acute Visit (chief complaint) HypomagnesemiaFacial skin lesion 4 Pravin Aqib. [address], [place], [place], [address], [place]. tel:[phone] [facility], [address], [place], [place], [id number], [place] tel:[phone] [place] No Information 4 Pravin Aqib. [address], [place], [place], [address], [place]. tel:[phone] [facility], [address], [place], [place], [id number], [place] tel:[phone] [place] Follow-up (chief complaint) Hypomagnesemia 4 Aileen Baileyca. [address], [place], [place], [address], [place]. tel:[phone] [facility], [address], [place], [place], [id number], [place] tel:[phone] [place] Follow-up (chief complaint) Acquired absence of left breast and nippleLymphedema, not elsewhere classified Jul- 4 Aileen Baileyca. [address], [place], [place], [address], [place]. tel:[phone] [facility], [address] [facility], [place], [place], [address], [place] tel:[phone] [place] medication (chief complaint) Hypomagnesemia 4 Bhagavatula Ujjwala. [address], [place], [place], [address], [place]. tel:[phone] [facility], [address] [facility], [place], [place], [id number], [place] tel:[phone] [place] No Information 4 Bhagavatula Ujjwala. [address], [place], [place], [address], [place]. tel:[phone] [facility], [address] [facility] [address], [place], [place], [id number], [place] tel:[phone] [place] Type 2 diabetes mellitus with hyperglycemia, with long-term current use of insulinLong term (current) use of insulin 4 Pitsiladis Meli. [address], [place], [place], [address], [place]. tel:[phone] [facility], [address] [facility], [place], [place], [address], [place] tel:[phone] [place] Encounter for rehabilitation evaluation 4 Josh Hayes. [address] [place], [place], [address], [place]. tel:[phone] [facility], [address] [facility], [place], [place], [address], [place] tel:[phone] [place] Encounter for nutritional assessmentOther obesity 4 Normile Karen. [address] [place], [place], [address], [place]. tel:[phone] [facility], [address] [facility], [place], [place], [address], [place] tel:[phone] [place] No Information 4 Os Roxy. [address], [place], [place], [address], [place]. tel:[phone] [facility], [address] [facility], [place], [place], [address], [place] tel:[phone] [place] Semi-Annual (chief complaint) Encounter for general adult medical examination without abnormal findingsCardiac arrhythmia, unspecified cardiac arrhythmia typeHyperlipidemia, unspecified hyperlipidemia typeType 2 diabetes mellitus with diabetic chronic kidney disease, unspecified CKD stage, unspecified whether longterm insulin useCurrent use of insulinType 2 diabetes mellitus with diabetic peripheral angiopathy without gangrene, unspecified whether longterm insulin useType 2 diabetes mellitus with diabetic polyneuropathy, unspecified whether analysis specialist insulin use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Autoimmune thyroiditisPrimary hyperparathyroidismLiv er transplantedHypertensi ve chronic kidney disease with stage 1 through stage 4 chronic kidney disease, or unspecified chronic kidney diseaseStage 3a chronic kidney diseaseOsteopenia, unspecified locationCerebral palsy, unspecified typeEdema, unspecified typeInvasive ductal carcinoma of breast, female, leftInfiltrating ductal carcinoma of breast, rightImmunosuppressed status 4 Os Roxy. [address], [place], [place], [id number], [place]. tel:[phone] [facility], [address] [facility], [place], [place], [address], [place] tel:[phone] [place] No Information Mar-2 4 Os Roxy. [address] [place], [place], [address], [place]. tel:[phone] [facility], [address] [facility], [place], [place], [address], [place] tel:[phone] [place] Follow-up (chief complaint) Cerebral palsy, unspecified typeMalignant neoplasm of right female breast, unspecified estrogen receptor status, unspecified site of breast Mar-2 - 4 Os Roxy. [address] [place], [place], [address], [place]. tel:[phone] [facility], [address] [facility], [place], [place], [id number], [place] tel:[phone] [place] Hypertension, unspecified type Mar-2 0-202 4 Os Roxy. [address] [place], [place], [address], [place]. tel:[phone] [facility], [address] [facility], [place], [place], [id number], [place] tel:[phone] [place] SNF Admit (chief complaint) Type 2 diabetes mellitus with diabetic chronic kidney disease, unspecified CKD stage, unspecified whether analysis specialist insulin useStage 3a chronic kidney diseaseEdema, unspecified typeImmunosuppressed statusHypertension, unspecified typeMalignant neoplasm of right female breast, unspecified estrogen receptor status, unspecified site of breast Mar-1 - 4 Os Roxy. [address] [place], [place], [id number], [place]. tel:[phone] [facility], [address] [facility], [place], [place], [address], [place] tel:[phone] [place] Malignant neoplasm o f unspecified site of unspecified female breast Mar-1 - 4 Munir Retana. [address], [place], [place], [address], [place]. tel:[phone] [facility], [address], [place], [place], [address], [place] tel:[phone] [place] Sebaceous cyst 4 Phyllis Woody. [address], [place], [place], [address], [place]. tel:[phone] [facility], [address], [place], [place], [address], [place] tel:[phone] [place] Malignant neoplasm o f unspecified site of unspecified female breast 4 Os Roxy. [address] [place], [address], [place]. tel:[phone] [facility], [address], [place], [place], [address], [place] tel:[phone] [place] Malignant neoplasm o f unspecified site of left female breast 4 Tarun Steinberg. [address], [place], [place], [address], [place]. tel:[phone] [facility], [address], [place], [place], [id number], [place] tel:[phone] [place] Edema, unspecified type 3 Aileen Baileyca. [address], [address], [place]. tel:[phone] [facility], [address], [place], [place], [id number], [place] tel:[phone] [place] No Information 3 Os Roxy. [address] [place], [place], [address], [place]. tel:[phone] [facility], [address], [place], [place], [address], [place] tel:[phone] [place] Encounter for nutritional assessmentClass 1 obesity with serious comorbidity and body mass index (BMI) of 33.0 to 33.9 in adult, unspecified obesity typeBody mass index [BMI] 33.0-33.9, adult 3 Luis F Jones. [address], [place], [place], [address], [place]. tel:[phone] [facility], [address] [facility], [place], [place], [address], [place] tel:[phone] [place] Malignant neoplasm o f unspecified site of left female breast 3 Munir Retana. [address] [place], [address], [place]. tel:[phone] [facility], [address], [place], [place], [address], [place] tel:[phone] [place] Semi-Annual (chief complaint) Type 2 diabetes mellitus with stage 2 chronic kidney disease, with long-term current use of insulinLong term (current) use of insulin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Autoimmune thyroiditisPrimary hyperparathyroidismHyp ertensive renal disease, stage 1 through stage 4 or unspecified chronic kidney diseaseLiver transplantedImmunosupp ressed statusCerebral palsy, unspecified type 3 Aileen Gregg. [address], [place], [place], [address], [place]. tel:[phone] [facility], [address] [facility], [place], [place], [address], [place] tel:[phone] [place] Encounter for rehabilitation evaluation 3 Davian River. [address] [facility], [place], [address]. tel:[phone] [facility], [address] [facility], [place], [place], [address], [place] tel:[phone] [place] Encounter for rehabilitation evaluation 3 Gerald Yeh. [address] [facility] [place], [place], [address]. tel:[phone] [facility], [address] [facility] [address] [facility], [place], [place], [address], [place] tel:[phone] [place] Type 2 diabetes mellitus with diabetic peripheral angiopathy without gangrene, with long-term current use of insulinLong term (current) use of insulin 3 Luis Alberto Johnny. [address] [place], [place], [address], [place]. tel:[phone] [facility], [address] [facility] [address] [facility], [place], [place], [address], [place] tel:[phone] [place] No Information 3 Os Roxy. [address] [place], [place], [address], [place]. tel:[phone] [facility], [address] [facility], [place], [place], [address], [place] tel:[phone] [place] F/U (chief complaint)S ebaceous Cyst (chief complaint) Hyperlipidemia, unspecified hyperlipidemia typeCurrent use of insulinChronic kidney disease due to diabetes mellitusStage 3a chronic kidney diseaseHypertensive renal disease, stage 1 through stage 4 or unspecified chronic kidney diseaseCerebral palsy, unspecified typeInvasive ductal carcinoma of breast, female, leftChronic gout without tophus, unspecified cause, unspecified siteImmunosuppressed status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Autoimmune thyroiditisSebaceous cyst 3 Ephraim Gomez. [address] [place], [address], [place]. tel:[phone] [facility], [address] [facility] [address] [facility], [place], [place], [address], [place] tel:[phone] [place] Encounter for nutritional assessmentClass 1 obesity without serious comorbidity with body mass index (BMI) of 32.0 to 32.9 in adult, unspecified obesity typeBody mass index [BMI] 32.0-32.9, adult March- 3 Normile Karen. [address] [facility] [place], [address], [place]. tel:[phone] [facility], [address] [facility], [place], [place], [address], [place] tel:[phone] [place] Semi-Annual (chief complaint) Cardiac arrhythmia, unspecified cardiac arrhythmia typeCerebral palsy, unspecified typeOsteopenia, unspecified locationPure hypercholesterolemiaCu rrent use of insulinStage 3a chronic kidney diseaseType 2 diabetes mellitus with diabetic chronic kidney disease, unspecified CKD stage, unspecified whether analysis specialist insulin useType 2 diabetes mellitus with diabetic peripheral angiopathy without gangrene, unspecified whether analysis specialist insulin useType 2 diabetes, controlled, with neuropathyHypothyroidi sm due to Quinton's thyroiditisAutoimmune thyroiditisPrimary hyperparathyroidismHyp ertensive renal disease, stage 1 through stage 4 or unspecified chronic kidney diseaseInvasive ductal carcinoma of breast, female, leftLiver transplantedImmunosupp ressed status 3 Os Roxy. [address] [place], [place], [id number], [place]. tel:[phone] [facility], [address] [address], [place], [place], [address], [place] tel:[phone] [place] No Information 3 Os Roxy. [address], [address], [place]. tel:[phone] [facility], [address] [facility], [place], [place], [address], [place] tel:[phone] [place] Oropharyngeal dysphagia Jan- 3 Caselden Kristin. [address] [facility] [place], [address], [place]. tel:[phone] [facility], [address] [facility], [place], [place], [address], [place] tel:[phone] [place] Oropharyngeal dysphagia Jan- 0 3 Caselden Kristin. [address] [facility] [place], [address], [place]. tel:[phone] [facility], [address] [facility] [address] [facility], [place], [place], [address], [place] tel:[phone] [place] Oropharyngeal dysphagia Mar-1 3 Caselden Kristin. [address], [place], [address], [place]. tel:[phone] [facility], [address] [facility], [place], [place], [address], [place] tel:[phone] [place] No Information Mar-0 8 3 Os Roxy. [address], [place], [address], [place]. tel:[phone] [facility], [address] [facility], [place], [place], [address], [place] tel:[phone] [place] Oropharyngeal dysphagia Mar-0 2 3 Caselden Kristin. [address], [place], [address], [place]. tel:[phone] [facility] [facility], [address] [facility], [place], [place], [id number], [place] tel:[phone] [place] Oropharyngeal dysphagia Feb-1 3 Caselden Kristin. [address], [place], [id number], [place]. tel:[phone] [facility], [address] [facility], [place], [place], [id number], [place] tel:[phone] [place] Dysphagia, unspecifi ed typeOther dysphagia Feb-0 3 Caselden Kristin. [address], [place], [id number], [place]. tel:[phone] [facility], [address] [facility], [place], [place], [address], [place] tel:[phone] Homer Non-recurrent abdominal hernia without obstruction or gangrene, unspecified hernia type Feb-0 8-202 3 Os Roxy. [address] [place], [place], [id number], [place]. tel:[phone] [facility], [address], [place], [place], [id number], [place] tel:[phone] [facility] Evaluation (chief complaint)P ost Hospital Evaluation (chief complaint) Cerebral palsy, unspecified typeLiver transplantedStage 3a chronic kidney disease 3 Os Roxy. [address] [place], [place], [id number], [place]. tel:[phone] [facility], [address], [place], [place], [id number], [place] tel:[phone] Homer No Information 3 Luis Alberto Turner. [address] [place], [place], [id number], [place]. tel:[phone] [facility], [address], [place], [place], [id number], [place] tel:[phone] [place] Dysphagia, unspecifi ed type 3 Luis Alberto Johnny. [address], [place], [id number], [place]. tel:[phone] [facility], [address], [place], [place], [id number], [place] tel:[phone] Homer Difficulty in walkin g, not elsewhere classified 3 Davian Perico. [address] [place], [address]. tel:[phone] [facility], [address], [place], [place], [id number], [place] tel:[phone] [facility] SNF DC (chief complaint) Type 2 diabetes mellitus with diabetic chronic kidney disease, unspecified CKD stage, unspecified whether analysis specialist insulin useStage 3a chronic kidney diseaseLiver transplantedAbdominal hernia without obstruction and without gangrene, recurrence not specified, unspecified hernia typeImmunosuppressed statusCerebral palsy, unspecified type 3 Deep Morales. [address], [place], [id number], [place]. tel:[phone] [facility], [address] [facility], [place], [place], [id number], [place] tel:[phone] [place] SNF ADMIT (chief complaint) Non-recurrent abdominal hernia with obstruction without gangrene, unspecified hernia typeLiver transplantedImmunosupp ressed statusType 2 diabetes mellitus with diabetic chronic kidney disease, unspecified CKD stage, unspecified whether longterm insulin useCardiac arrhythmia, unspecified cardiac arrhythmia typeLeukocytosis, unspecified type 3 Deep Morales. [address], [place], [id number], [place]. tel:[phone] [facility], [address] [facility] [facility], [place], [place], [id number], [place] tel:[phone] Homer No Information 3 Os Roxy. [address], [place], [place], [id number], [place]. tel:[phone] [facility], [address] [facility], [place], [place], [id number], [place] tel:[phone] Homer Encounter for rehabilitation evaluation 2 Davian River. [address], [place], [address]. tel:[phone] [facility], [address] [facility] [address] [facility], [place], [place], [id number], [place] tel:[phone] Homer Encounter for rehabilitation evaluationAlteration in performance of activities of daily livingMild cognitive impairment, so stated 2 Gerald Yeh. [address] [place], [place], [id number]. tel:[phone] [facility], [address] [facility] [address], [place], [place], [id number], [place] tel:[phone] Homer Encounter for nutritional assessmentExcessive carbohydrate intakeDeficiency of other specified nutrient elementsOther obesity 2 Normile Karen. [address], [place], [id number], [place]. tel:[phone] [facility], [address], [place], [place], [id number], [place] tel:[phone] Homer Hypertensive chronic kidney disease with stage 1 through stage 4 chronic kidney disease, or unspecified chronic kidney diseaseHyperlipidemia, unspecified hyperlipidemia typeType 2 diabetes mellitus with diabetic chronic kidney disease, unspecified CKD stage, unspecified whether longterm insulin useCurrent use of insulin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Autoimmune thyroiditisPrimary hyperparathyroidismSta ge 3a chronic kidney diseaseImmunosuppresse d statusLiver transplantedCerebral palsy, unspecified typeHX: breast cancerDiabetes mellitus with peripheral vascular diseaseType 2 diabetes, controlled, with neuropathy 2 Os Roxy. [address], [place], [id number], [place]. tel:[phone] [facility], [address] [facility], [place], [place], [id number], [place] tel:[phone] Homer No Information 2 Os Roxy. [address] [place], [place], [id number], [place]. tel:[phone] [facility], [address], [place], [place], [id number], [place] tel:[phone] Homer PHV (chief complaint) HerniaLiver transplantedHistory of small bowel obstruction 2 Os Roxy. [address] [place], [place], [address], [place]. tel:[phone] [facility], [address], [place], [place], [id number], [place] tel:[phone] Homer Liver transplantedHernia 2 Luis Alberto Johnny. [address], [place], [id number], [place]. tel:[phone] [facility], [address], [place], [place], [id number], [place] tel:[phone] Homer No Information 2 Os Roxy. [address] [place], [place], [address], [place]. tel:[phone] [facility], [address], [place], [place], [address], [place] tel:[phone] Homer No Information 2 Os Roxy. [address] [place], [place], [id number], [place]. tel:[phone] [facility], [address], [place], [place], [id number], [place] tel:[phone] Homer Hypertension, unspecified type 2 Luis Alberto Johnny. [address] [place], [place], [id number], [place]. tel:[phone] [facility], [address] [facility] [address] [facility], [place], [place], [id number], [place] tel:[phone] Homer Encounter for rehabilitation evaluationAlteration in performance of activities of daily livingMild cognitive impairment, so stated 2 Gerald Yeh. [address] [facility], [place], [place], [id number]. tel:[phone] [facility], [address] [facility] [facility], [place], [place], [id number], [place] tel:[phone] Homer Encounter for nutritional assessmentAbnormal weight gain 2 Normile Karen. [address] [place], [place], [id number], [place]. tel:[phone] [facility], [address] [facility] [address] [facility], [place], [place], [id number], [place] tel:[phone] Homer Semiannual (chief complaint) Hypertensive chronic kidney disease with stage 1 through stage 4 chronic kidney disease, or unspecified chronic kidney diseaseHyperlipidemia, unspecified hyperlipidemia typeCurrent use of insulin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Autoimmune thyroiditisPrimary hyperparathyroidismLiv er transplantedStage 3a chronic kidney diseaseHx of left mastectomyImmunosuppre ssed statusCerebral palsy, unspecified type 2 Os Roxy. [address] [place], [place], [id number], [place]. tel:[phone] [facility], [address], [place], [place], [id number], [place] tel:[phone] Homer Port-A-Cath in place Hx of left mastectomy 2 Os Roxy. [address] [place], [place], [id number], [place]. tel:[phone] [facility], [address], [place], [place], [id number], [place] tel:[phone] Homer Liver transplanted 2 Os Roxy. [address] [place], [place], [id number], [place]. tel:[phone] [facility], [address] [facility], [place], [place], [id number], [place] tel:[phone] Homer No Information 1 Luis Alberto Turner. [address], [place], [id number], [place]. tel:[phone] [facility], [address], [place], [place], [address], [place] tel:[phone] Homer Type 2 diabetes mellitus without complication, unspecified whether longterm insulin use 1 Os Roxy. [address] [place], [place], [id number], [place]. tel:[phone] [facility], [address], [place], [place], [id number], [place] tel:[phone] Homer Encounter for nutritional assessmentDiabetes education, encounter for 1 Sara Pool. [address], [place], [address]. tel:[phone] [facility], [address] [facility] [address] [place] [address], [id number], [place] tel:[phone] Homer Encounter for rehabilitation evaluation 1 Davian River. [address], [place], [address]. tel:[phone] [facility], [address] [facility] [address] [place] [address], [id number], [place] tel:[phone] Homer Encounter for rehabilitation evaluationMild cognitive impairment, so statedAlteration in performance of activities of daily living 1 Gerald Yeh. [address] [place], [place], [id number]. tel:[phone] [facility], [address] [facility] [facility] [address] [facility], [place], [place], [id number], [place] tel:[phone] Homer PEE (chief complaint) Encounter for general adult medical examination without abnormal findingsEncounter for screening for respiratory tuberculosisHypertensi on, unspecified typeSBE (subacute bacterial endocarditis) prophylaxis candidateCardiac arrhythmia, unspecified cardiac arrhythmia typeHyperlipidemia, unspecified hyperlipidemia typeType 2 diabetes mellitus without complication, unspecified whether analysis specialist insulin useCurrent use of insulin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Autoimmune thyroiditisPrimary hyperparathyroidismVit campo D deficiencyHx of tracheostomyLiver transplantedHX: breast cancerHx of left mastectomyPersonal history of other malignant neoplasm of skinImmunosuppressed statusGout, unspecified cause, unspecified chronicity, unspecified siteOsteopenia, unspecified locationCerebral palsy, unspecified typeEdema, unspecified type 1 Os Roxy. [address], [place], [place], [id number], [place]. tel:[phone] [facility], [address] [facility], [place], [place], [id number], [place] tel:[phone] Homer HX: breast cancerCardiac arrhythmia, unspecified cardiac arrhythmia type Sep- 1 Sara Pool. [address] [place], [address]. tel:[phone] [facility], [address] [facility] [address] [facility], [place], [place], [address], [place] tel:[phone] Homer No Information 1 Luis Alberto Turner. [address], [place], [id number], [place]. tel:[phone] [facility], [address] [facility], [place], [place], [id number], [place] tel:[phone] Homer Intake (chief complaint) Encounter for general adult medical examination without abnormal findingsEncounter for screening for respiratory tuberculosis 1 Luis Alberto Turner. [address], [place], [id number], [place]. tel:[phone] Family History Family Member Type Diagnosis Age [...] Payer name Insurance type Covered democrat ID Samra chicas(s) [employer] 16 [id number] [employer] 16 [id number] [employer] 16 [id number] [employer] 16 [id number] [employer] 16 [id number] [employer] 16 [id number] Social History Type Description Quantity Date Captured Comments Sex Female Smoking Status No Information Chief Complaint And Reason For Visit No Information Plan Of Treatment Date Type Action Status Referral Ordered: Nephrology (related to Type 2 diabetes mellitus with diabetic chronic kidney disease, unspecified CKD stage, unspecified whether analysis specialist insulin use) ordered Referral Ordered: Referrals: Occupational Therapy ordered [...] treat (related to Facial skin lesion) ordered Future Order: Lab Order MAGNESIU M ([id number]), Sent on: Sent Future Order: Lab Order BASIC ME TABOLIC PANEL ([id number]), Sent on: Sent Future Order: Lab Order MAGNESIU M ([id number]), Ordered on: Ordered Future Order: Lab Order BASIC ME TABOLIC PANEL ([id number]), Ordered on: Ordered Future Order: Radiology Order Zheng ne density study (by DEXA); axial skeleton (e.g., hips, pelvis, spine) ([id number]), Ordered on: Ordered Future Order: Radiology Order Ma mmogram (Screen); Bilat, 2-view study of each breast, incl computer-aided detection when performed ([id number]), Ordered on: Ordered History Of Present Illness Encounter Date Complaint History Of Prese nt Illness Acute Visit Seema is a 69 yea rs old female who was seen for an acute visit at the [facility]. Pt previously had a laceration to her left hand which was sutured in the ER. It was healing well until yesterday when she developed redness and swelling around the wound. She also complains of tenderness to palpation around the wound. Denies any fevers or chills or any other symptoms at this time. No other acute complaints or concerns. Pt was examined in her room by the bedside. She was noted to have marked swelling and erythema around the wound. Otherwise wound is healing well. No signs of dehiscence and no discharge noted. Semi-Annual Seema is a 69 yea rs old female who has been enrolled in the PACE program since 09/2021 and is being seen for their semiannual exam.Patient had been seen in her room at [facility].There have been no ER visits, hospital admissions, or SNF stays in the last 6 months. Collective reviewed.Diagnoses Reviewed.-No new diagnosesReferrals reviewed.Consults: w/in the last year-Dental: no dentures in place, referral made-Podiatry: cristy Gonzalez q3 months-Vision: Dr. Leiva; order in place-[place]ocrinology: [facility] 09/25/23-no changes made-Hem/Onc: [facility] 02/22/24-post right masectomy; med changes made; DEXA ordered-Surgery: [facility] 02/21/24-post right masectomy-Dermatology: referral in for f/u on sebacious cyst scheduled for 11/13/24-Liver transplant GI: [facility] liver clinic Dr. Calderon 02/05/24: have not [...] seen for an acute visit at the [facility]. She was seen and evaluated for [...] had been seen in her room at [facility].There have been no ER visits, hospital admissions, or SNF stays in the last 6 months. Diagnoses Reviewed.-No new diagnosesReferrals reviewed.Consults: w/in the last year-Dental: no dentures in place, referral made-Podiatry: cristy Gonzalez q3 months-Vision: Dr. Leiva; order in place-Endocrinology: [facility] 09/25/23-no changes made-Hem/Onc: [facility] 02/22/24-post right masectomy; med changes made; DEXA ordered-Surgery: [facility] 02/21/24-post right masectomy-Dermatology: referral in for f/u on sebacious cyst scheduled for 11/13/24-Liver transplant GI: [facility] liver clinic Dr. Jung 02/05/24: have not [...] stay healthy-HCP: Invoked. HCP/Brother Chuck Acute Visit Semea is a 68 yea rs old female [...] had been seen in her room at [facility].Diagnoses Reviewed.-No new diagnosesReferrals reviewed.Consults: w/in the last year-Dental: no dentures in place, referral made-Podiatry: cristy Gonzalez q3 months-Vision: Dr. Leiva; order in place-Endocrinology: [facility] 09/25/23-no changes made-Hem/Onc: [facility] 02/22/24-post right masectomy; med changes made; DEXA ordered-Surgery: [facility] 02/21/24-post right masectomy-Dermatology: referral in for f/u on sebacious cyst scheduled for 11/13/24-Liver transplant GI: [facility] liver clinic Dr. Jung 02/05/24: have not [...] today for a SNF admission to [facility].Ppt currently lives at [facility]: 02/05/24-02/08/24CC: scheduled right mastectomy w/ Dr. [...] chemotherapy, now with right breast cancer.SNF: [facility] 02/08/24-02/14/24ospital medications reviewed. Updated EMR.SNF summery: no significant medical information during SNF stay. Ppt required SNF for drain and insulin management. F/u visits:-PCP -Nan Gusman (surgeon)Today:-Ppt reports she feels well and is adjusting back at [facility]. No concerns at this time. Incision site w/o concerns for infection. ALEX drains had been emptied by [facility] prior to my arrival per ppt. BP 132/92. Stable at this time- would continue current medication regimen. Follow-up SNF Admit Seema is a 68 yea r old female who is being seen today for a SNF admission to [facility].Ppt currently lives at [facility]: 02/05/24-02/08/24CC: scheduled right mastectomy w/ Dr. [...] would be discharged with ALEX drain.SNF: [facility] 02/08/24-TB02/08/24: Hospital medications reviewed.Updated EMR.Started:-Tamoxifen 20mg daily -Multivitamin 1 chew [id number]-[id number]-4 Polyunsaturated Fatty Acids 1000mg daily Changed:-Insulin Lispro [...] measuring about 100cc eachPlan:-Can return back to [facility] after ALEX drains removed and ppt is medically stable-Monitor weekly labsReviewed plan w/ nursing at SNF. Semi-Annual Patient is a 68 year old female who has been enrolled in the PACE program since 09/2021 and is being seen for their semi annual exam. She lives at [facility] and comes to the PACE site [...] Reviewed.-No new diagnosesReferrals reviewed.Consults:-Liver transplant physician (GI): [facility] liver clinic, Dr. Jung- last seen 09/2022 for s/p liver transplant for cruptogenic cirrhosis. Missing meds since the spring, urgent referral to GI.-Team Physician: 10/2022- [facility]- no changes-Oncology: [facility] Dr. Coto- Continue tamoxifen for a total of at least 5 years. Mammogram due in September (oncology schedule). 2001/breast cancer stage II-III of left breast s/p masectomy w/ completed chemo on tamoxifin-continuing to take at this time for prophylaxis. -Endocrinology: [facility] endocrine- currently on numerous medications r/t DM. Last seen 2Recommended increase the 75/25 in AM to 28 units.-Dermatology: [facility] (previously doing yearly skin checks)Vision: Dr. Leiva, sees regularly.Dental: no dentures in place, referral made. Podiatry: [facility] podiatry.Screenings: Continuing to screen-Mammogram: 10/10/2022, yearly [...] needs provider visit. She lives at an [facility].Requires [facility] services for insulin administration. Her FSBS [...] had been seen in her room at [facility].Diagnoses Reviewed.-No new diagnosesReferrals reviewed.Consults:-Liver transplant physician (GI): [facility] liver clinic, Dr. Jung- last seen 09/2022 for s/p liver transplant for cruptogenic cirrosis 2000/breast cancer stage II-III of left breast s/p masectomy w/ completed chemo on tamoxifin-continuing to take at this time for prophylaxis. Follow up in 1 year.-Team Physician: 10/2022- [facility]- no changes-Oncology: [facility] Dr. Coto- Continue tamoxifen for a total of at least 5 years. Mammogram due in September (oncology schedule). Return in 6 months for f/u.-Endocrinology: [facility] endocrine- currently on numerous medications r/t DM. Last seen 2Recommended increase the 75/25 in AM to 28 units.-Dermatology: [facility] (previously doing yearly skin checks)Vision: Dr. Leiva, sees regularly.Dental: no dentures in place, referral made. Podiatry: [facility] podiatry.Screenings: Continuing to screen-Mammogram: 10/10/2022, yearly [...] is being seen today for a PHV. [facility] 12/26/22-12/29/22Dx: MARIA ESTHER and UTI-Prior to admission ppt was hypotensive and labs were ordered showing a GFR 14 and creat of 3.51. Ppt is a liver transplant ppt (2000) and has been following Dr. Calderon at [facility]. Discussed lab findings and they advised to send to [facility]. Ppt did have a recent hernia repair in November at [facility] with complications including hemmorhagic shock and was treated for aspiration pneumonia. MARIA ESTHER was thought to be ATN in the setting of recent adverse reaction to zosyn. Ppt received IVF where creat improved to 1.5 upon discharge. Started on cipro IV on 12/27 culture negative. Discharged home to [facility].Med changes:-d/c'd clonidine -d/c'd lasix-d/c'd lisinopril-d/c'd metoprolol succinate-started metoprolol tartrate 25mg BID-resume cellcept (prescribed by Dr. Molinaday:-Ppt reports feeling better . Negative ROS. No complaints at this time. BP stable 124/82.Plan: -order CBC and BMP for in 1 week-med changes updated-appt with Dr. Calderon on 01/04/23Nov- [facility] SEEMA CHONG [facility] SUMMARY Patient encounter date 12/20/22DC date 12/21/22[facility] on 11/29 for robotic repair of large [...] in the transplant clinic. --[facility] HELDPrograf 0.5mg BID continued Zestril 5mg QD added --SNF COURSEPpt [facility] remained without painShe did well in PTOTShe [...] and dc order placed in chart APPOINTMENTS01/04/23 [facility] liver transplant [id number]/55T 98.4HR 8602 96ROSNo N V F Cno [...] erythema edema or drainage. SNF ADMIT SEEMA CHONG [facility] ADMITHPIfrom [facility] to [facility] on 11/29 for robotic repair of large [...] the transplant clinic. MED CHANGES--Added:Cipro 500mg BID e6nWecslfypvuu 100mg BID r2m--Jokyyma:Cellcept HELDPrograf 0.5mg BID --DCAmoxTresibaXHMPKC890/82RR 16T 99, recheck 97.8HR 86 palp02 96%ROSNo [...] clemons s a 66yo female resented to [facility] ED with less than 1 day of abdominal pain, nausea, and two episodes of emesis with concern for high-grade SBO at the level of her ventral hernia. She was subsequently transferred to [facility] d/t her history of liver transplant and the complexity of her ventral hernia.Upon arrival to [facility] her abdominal pain had resolved, and on exam had no tenderness to palpation, non-peritonitic. NGT was placed at [facility], decompressed overnight. Passing flatus. Also had a UA positive for infection. 1 dose of ceftriaxone and immunosuppressive medication held for a day. Tolerating the advancement in her diet. Had a BM. Deemed stable for discharge. Med changes: clonidine 0.2mg (previously 0.3mg)Today: Ppt appears comfortable has no problems and is "all better now . ROS negative.Plan: family requesting a follow up with [facility] GI as pt had been following (order in place)-Chuck (brother) reports [facility] appt is for 09/19/22 at 9:30a. No other concerns at this time. Semiannual Comments: Seema clemons s a 66 year old female who has been enrolled in the PACE program since 09/2021 and is being seen for their semiannual exam.[facility] [facility].There have been no hospitalizations, SNF admission and/or ER visits in the last six months.CC: no concerns reported from pt nor brother/HCP Chuck.Diagnoses Reviewed.-No new diagnosesConsults:-Liver transplant physician (GI): [facility] liver clinic, Dr. Calvin- last seen 09/2021 for s/p liver transplant for cruptogenic cirrosis 2000/breast cancer stage II-III of left breast s/p masectomy w/ completed chemo on tamoxifin-continuing to take at this time for prophylaxis. Follow up in 1 year (09/2022).-Team Physician: [facility] Dr. Blackman- Will consider changing over to [facility] practices once they determine the need for eliquis as they have been monitoring for some time. -Oncology: [facility] Dr. Coto- Discussed w/ pt, would like to keep as they have her currently on Tamoxifen-Endocrinology: [facility] endocrine- currently on numerous medications r/t DM. Last seen 02/10/22. Recommended starting a freestyle ev which has been ordered for better BS monitoring. -Dermatology: [facility]- had been following yearly for skin survalience s/p basal cell carcinoma. Had discussed keeping their upcoming appt in October and would then see [facility] derm as needed- no appt in chartVision: Dr. Leiva, sees regularly.Dental: no dentures in place, referral made. Podiatry: [facility] podiatry.Screenings: Continuing to screen-Mammogram: 10/04/21, yearly [...] enrollment exam.She currently is a resident at [facility]. Patient and brother/HCP, Chuck, have no concerns at this time. Diagnoses reviewed.Medications reviewed.Advance Directives discussed- pt and family is unsure at this time, would like to talk to all family members before final decision. Conversation started. -Liver transplant physician: [facility] liver clinic, Dr. Jung- sees regularly. -Team Physician: [facility] Dr. Blackman- currently pt is on a holter monitor, engine manager determining if she should remain on eliquis. She is scheduled to see him 10/11/21. Will consider changing over to [facility] practices once they determine the need for eliquis as they have been monitoring for some time. -Oncology: [facility] Dr. Coto- Discussed w/ pt, would like to keep as they have her currently on Tamoxifen-Endocrinology: [facility] endocrine- currently on numerous medications r/t DM. Will put out a referral to [facility] endo. -Dermatology: [facility]- had been following yearly for skin survalience s/p basal cell carcinoma. Discussed keeping their upcoming appt in October and would then see [facility] derm as needed. Vision: Dr. Leiva, sees regularly.Dental: no dentures in place, referral made. Podiatry: will be transitioning to [facility] podiatry.Mammogram: 10/04/21, yearly mammograms.Bone density: last in 2019, scheduled every other year (due 2021)Colonoscopy: 2015, next due in 10 years (2025)WMM: Being able to care for self at current functional level. Intake Very pleasant wo man, accompanied by her [id number], brother Chuck and case technician from [facility]. The patient apparently had intake in February however decision was made to delay proceeding due to living circumstances/roommate. The roommate has unfortunately moved out due to illness and the patient is now at the head of the waiting list for [facility] assisted living.We regrettably have virtually no medical records. There are a number of notes/lists that were printed out from the [facility] system however, no PCP records nor records from any of the subspecialists that she sees ([facility]). Interestingly, the family had no awareness of [...] dysphagia. Hearing is fairly good. She sees stone cutter, the exact extent of any vision impairment [...] at the very least:Liver transplant physician at [facility] (Dr. Calderon)Indicated that the enamel cracker (Dr. Carlos) is in networkDr. Faizan Cali, her stone cutter is in networkI explained that if needed oncology service (likely needed as she is on maintenance tamoxifen), endocrinology (very complicated regimen), GI, surgery, cardiology would likely be transitioned to [facility] practice. I explained that this helps maintain continuity of care and allows us access to records. I indicated that [facility] it is our preferred hospital and that we strongly encourage its use somewhat negating any benefit of continuity with previous providers as they do not go to [facility]. I did not specifically address the uke operator. They are aware that there is a uke operator that goes to [facility] although I am unclear if it someone we are affiliated with.Medication, which is extensive, was updated via the list that the brother provided.Problem list was updated to the best of my ability based upon the limited information available to us. Suggestion that there was a bone density done in 2019. I cannot explicitly know why she is seeing a enamel cracker. The engine manager seems to surround the issue of the arrhythmia, again presumed atrial fibrillation. The role of the shore hand dredge or barge is unclear. The general surgeon performed the [...] living assumes management of her medications via [facility] Instructions Date Instruction Additional Infor hetal Patient with a left hand laceration that required suturingPhysical exam today shows erythema, swelling but no dischargeMild tenderness to palpationWill treat with 5 day course of DoxycyclineWill continue to monitor Related to Cellulitis of left hand Chemotherapy was the first line of action; [...] 2 diabetes mellitus with hyperglycemia Patient with primary hyperparathyroidismCalcium and PTH within rangeCurrently asymptomaticPt does not want a surgeryWill continue to monitor Related to Primary hyperparathyroidism Patient with mixed h yperlipidemiaLast lipid panel [...] medical examination without abnormal findings Patient with Type 2 DM with hyperglycemiaFBS numbers have improved but still mildly elevated at 177 on the morning of examContinue insulinContinue Trulicity and PrandinLeland keep the same dosage for now to avoid hypoglycemiaWill check HgA1C with next visitWill continue to monitor 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 Prograf ongoing Cont inues to follow up with [facility]- Dr Olson continue to monitor Related to Liver transplant status Patient had Afib s/p chemoSecondary hypercoagulable stateContinue EliquisWisedrick continue to monitor Related to Secondary hypercoagulable state Patient with onychau xis of the toes [...] ongoing Cont inues to follow up with [facility]- Dr Olson continue to [...] next visitWill continue to monitor Related to care home (current) use of insulin Patient with mixed [...] URI as multiple other participants at the [facility] have been sick with similar symptomsSymptomatic managementEncouraged [...] monthsscheduling daily Mg replacement8.9.24critical lab1.4 today at [id number] daily replacement sent recheck labs sunday Related to Hypomagnesemia critical lab1.4 toda y at [id number] daily replacement sent recheck labs sunday Related [...] I suspect they will be). 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 - I will obtain records from [facility]. It is likely that she [...] months. - I will obtain records from [facility]. It is likely that she [...] diabetes mellitus with diabetic polyneuropathy, unspecified whether analysis specialist insulin use Continued to be foll ow by [facility] endocrinology primarily for diabetes. 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 08/2023: TSH w/ reflex 3.08Ordered TSHContinue levothyroxine Related to Autoimmune thyroiditis Currently takes mult ivitamin, tums, and vit D. 08/2023 calcium 8.81 PTH 129Ordered vit D, and calcium level.Currently followed by endocrine primarily for diabetes.-No changes in regards to hyperpartathyroidism Related to Primary hyperparathyroidism Prograf ongoing [facility] s liver clinic (GI), Dr. Jung- had [...] kidney disease, unspecified CKD stage, unspecified whether longterm insulin use Continue Humulog mix 75-25 Continue Trulicity Follows endocrineBG between 100-200 Related to Current use of insulin Followed by endocrin eContinue insulin01/29/24: A1C 8.2Decreased pulses. Shiny hairless guzman LE. -Continue statin Related to Type 2 diabetes mellitus with diabetic peripheral angiopathy without gangrene, unspecified whether longterm insulin use She is currently on eliquis and metoprolol for afib.Pt had afib during her chemotherapy tx per brother/HCP. [facility] had assessed ppt on 05/17/22 where they were going to continue the eliquis and metoprolol until they further review ppts holter and ECHO from [facility].No longer following cardiology regularlyToday: RRR Related to Cardiac arrhythmia, unspecified cardiac arrhythmia type 10/02/23 Total chol 2 67, HDL 42, TRI 467, Ratio 6.4, Non HDL 225, GLU 176-Continue LipitorLipid panel for semiMay consider increasing lipitor Related to Hyperlipidemia, unspecified hyperlipidemia type Ppt reports she feel s well and is adjusting back at [facility]. No concerns at this time. Incision site [...] never required braces . Cognitive delay evident; [id number]/2022 MOCA MOCA Related to Cerebral palsy, unspecified type Had period of hypote nsion which subsequently turned into hypertension. Would like to monitor BPs and if BPs remain elevated may implement their recommendations of adding clonidine 0.2mg daily Related to Hypertension, unspecified type 02/08/24 scheduled ri ght mastectomy w/ Dr. Gusmanspital course summery:-Course complicated by hypotension, MARIA ESTHER, [...] discharged with ALEX drain.Plan:-Can return back to [facility] after ALEX drains removed and ppt is [...] kidney disease, unspecified CKD stage, unspecified whether longterm insulin use GFR -02/05 33-02/07 60 Avoid [...] never required braces . Cognitive delay evident; blpzcou69/2022 MOCA MOCA Related to Cerebral palsy, unspecified type Diltiazem 24 ER 180m g dailyMetoprololControlledeGFR 60s, stage 2 currently, has historically been stage 3a Related to Hypertensive renal disease, stage 1 through stage 4 or unspecified chronic kidney disease Prograf ongoing Cell cept held d/t leurkocytosis after surgery- 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 Related to Autoimmune thyroiditis Asymptomatic.Current ly taking allopurinol. Related to Chronic gout without tophus, unspecified cause, unspecified site History of CP docume nted in preenrollment records. Currently not following neurologist or is on any medications. Brother reports she had CP since , she used to see somebody for developmental disability. She never required braces . Cognitive delay evident; [id number]/2022 MOCA Related to Cerebral palsy, unspecified type Last seen by hem onc on 3Ppt [...] unspecified chronic kidney disease 03/23/23 Creatinine/G FR 0.93/67[facility] 12/26/22-12/29/22Dx: MARIA ESTHER and UTI-Prior to [...] d/t leurkocytosis after surgery- [facility] Mcgee had f/u [...] left BPs stable Being fol lowed by [facility] engine manager: Dr. Blackman and was switched to [facility] engine manager. -Currently taking clonidine, cardizem, lisinopril, and [...] ordered for semiContinued to be follow by [facility] endocrinology primarily for diabetes. 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 Related to Autoimmune thyroiditis A1C 10/2022: 8.5Rece nt increase in insulinDecreased pulses. Shiny hairless guzman LE. -Continue statin Related to Type 2 diabetes mellitus with diabetic peripheral angiopathy without gangrene, unspecified whether analysis specialist insulin use Dose increased per e ndocrine.75/25 insulin: 28 units in the AM 20 units in PMFollowed by [facility] endocrinology. She is on numerous medications r/t DM2 that are being managed by [facility] endo: repaglinide, tresiba, and [id number] 8.5Recent hospitalization 12/2022 showed labs were ordered showing a GFR 14 and creat of 3.51. MARIA ESTHER was thought to be ATN in the setting of recent adverse reaction to zosyn. Ppt received IVF where creat improved to 1.5 upon discharge. Related to Type 2 diabetes mellitus with diabetic chronic kidney disease, unspecified CKD stage, unspecified whether analysis specialist insulin use [facility] -12/29/22Dx: MARIA ESTHER and UTI-Prior to [...] 3a chronic kidney disease A1C 8.5Followed by [facility] endocrinology. She is on numerous medications r/t DM2 that are being managed by [facility] endo: repaglinide, tresiba, and trulicityMost recent visit [...] afib during her chemotherapy tx per brother/HCP. [facility] had assessed ppt on 05/17/22 where they were going to continue the eliquis and metoprolol until they further review ppts holter and ECHO from [facility]. May consider d/c'ing in the future. Today: RRR Related to Cardiac arrhythmia, unspecified cardiac arrhythmia type History of CP docume nted in preenrollment records. Currently not following neurologist or is on any medications. Brother reports she had CP since , she used to see somebody for developmental disability. She never required braces . Cognitive delay evident; /2022 MOCA 17/30 Related to Cerebral palsy, unspecified type s/p surgical repaira bd incision CDI with staplesJP dremoved abd soft NT good bowel sounds (+)flauts/BMfollowup with surgeon in next 1-2 weeks no pain use pain PRNabd exam otherwise benign Related to Non-recurrent abdominal hernia without obstruction or gangrene, unspecified hernia type [facility] -12/29/22Dx: MARIA ESTHER and UTI-Prior to [...] never required braces . Cognitive delay evident; fnscxus32/2021 MOCA 20/30 Related to Cerebral palsy, unspecified [...] ymetformin was added to med [facility] at [facility] not on prior to hospital per PCP Recordsppt will followup with PCP after dcmed regimen can be reassessed at that time Related to Type 2 diabetes mellitus with diabetic chronic kidney disease, unspecified CKD stage, unspecified whether analysis specialist insulin use dc summary reports l eukocytosis [...] kidney disease, unspecified CKD stage, unspecified whether longterm insulin use see 'liver transplanted' Related to [...] never required braces . 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 Calderon of [facility] liver transplant clinic. Referral made for f/u. Related to Immunosuppressed status [facility] liver clinic ( GI), Dr. 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 She will have labs drawn [id number] at [facility]. Plan: Follow up in 1 year- order [...] PM. Ppt is also on repaglinide and [id number] 02/2022: 8.5; reassess for semiCKD: GFR- 39-Avoid nephrotoxic medications Related to Type 2 diabetes mellitus with diabetic chronic kidney disease, unspecified CKD stage, unspecified whether analysis specialist insulin use Endocrine: 08/23/22: Humalog 75/25 increased [...] thyroiditis BPs stable 126/82Bei ng followed by [facility] engine manager: Dr. Blackman and was switched to [facility] engine manager. -Currently taking clonidine, cardizem, lisinopril, and metoprolol Related to Hypertensive chronic kidney disease with stage 1 through stage 4 chronic kidney disease, or unspecified chronic kidney disease History of ventral a nd umbilical hernias.History of liver transplant at [facility], should follow up with them for evaluation of this hernia and any possible need for intervention now that it is clear she is not acutely obstructed. Related to Hernia [facility] liver clinic ( GI), Dr. 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 She will have labs drawn [id number] at [facility]. Plan: Follow up in 1 year. Related to Liver transplanted Presented to [facility] h less than 1 day of abdominal pain, nausea, and two episodes of emesis with radiographic concern for high-grade small bowel obstruction at the level of her ventral hernia. Given her history of liver transplant and the complexity of her ventral hernia, she was transferred to [facility] for further management. Upon arrival however, her abdominal pain had resolved, and on exam had no tenderness to palpation. She had an NGT that was placed at [place], allowed to decompress overnight. She continued to pass flatus. Her NGT was removed the following day. She subsequently had a bowel movement and was advanced to a regular diet. She tolerated solid food well without further pain. Related to History of small bowel obstruction History of ventral a nd umbilical hernias.History of liver transplant at [facility], should follow up with them for evaluation of this hernia and any possible need for intervention now that it is clear she is not acutely obstructed.Will f/u w/ [facility] GI Related to Hernia [facility] liver clinic ( GI), Dr. 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 She will have labs drawn [id number] at [facility]. Plan: Follow up in 1 year. Related to Liver transplanted BPs stableBeing foll owed by [facility] engine manager: Dr. Blackman. May consider switching cardiologists (to [facility] provider). No recent visits since PEE.-Currently [...] and mycophenolate prescribed by Dr. Calderon of [facility] liver transplant clinic. Related to Immunosuppressed status Currently takes mult ivitamin, tums, and vit D. 09/2021 PTH 161, calcium 8.7Ordered vit D, and calcium level. Related to Primary hyperparathyroidism [facility] liver clinic ( GI), Dr. 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 She will have labs drawn [id number] at [facility]. Plan: Follow up in 1 year. Related to Liver transplanted 12/2021: GFR 49-Avoid nephrotoxic medications Related to Stage 3a chronic kidney disease Pt has been followin g general surgery Dr. Aaron [facility] s/p mastectomy. She has been following up every 6 months per office. Discussed w/ HCP she should keep this last appt and then she should not need to keep following up. Related to Hx of left mastectomy 10/06/21: A1C 7.2Fol lowed by [facility] endocrinology. Last seen he is on numerous medications r/t DM2 that are being managed by [facility] endo: repaglinide, tresiba, and trulicityMost recent visit recommended a freestyle ev for better BS monitoring. This has been ordered. Related to Current use of insulin Continued to be foll ow by [facility] endocrinology primarily for diabetes. 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 09/2021 TSH 2.06Ordered TSHContinue levothyroxine Related to Autoimmune thyroiditis 10/06/21: TC 178, HD L 33, LDL 102, TG 320Currently taking lipitor Related to Hyperlipidemia, unspecified hyperlipidemia type BPs stableBeing foll owed by [facility] engine manager: Dr. Blackman. May consider switching cardiologists (to [facility] provider). No recent visits since PEE.-Currently taking clonidine, cardizem, and metoprolol Related to Hypertensive chronic kidney disease with stage 1 through stage 4 chronic kidney disease, or unspecified chronic kidney disease Pt has been followin g general surgery Dr. Aaron [facility] s/p mastectomy. She has been following up every 6 months per office. Discussed w/ HCP she should keep this last appt and then she should not need to keep following up. Related to Hx of left mastectomy Port in chest from oncology Rela markus to Port-A-Cath in place Per preenrollment re cords and family. [facility], 2000. Currently seeing Dr. Calderon.Dr. Calderon prescribes and refills: fish oil, mycophenolate mofetil, and tacrolimusHCP reports best way to contact is through his RN Pau- [phone] Related to Liver transplanted 10/06/21: A1C: 7.2 Related to Ty pe 2 diabetes mellitus without complication, unspecified whether analysis specialist insulin use Hx of liver transpla nt, currently taking tacrolimus and mycophenolate prescribed by Dr. Calderon of [facility] liver transplant clinic. Related to Immunosuppressed status [...] lasix. Related to Edema, unspecified type Follows [facility] endocrin ology.Currently takes multivitamin, tums, and vit [...] tracheostomy Per preenrollment re cords and family. [facility], 2000. Currently seeing Dr. Calderon.Dr. Calderon prescribes and refills: fish oil, mycophenolate mofetil, and tacrolimusHCP reports best way to contact is through his RN Pau- [phone] Related to Liver transplanted Left mastectomy in . Yearly mammograms. History of breast cancer scheduled for mammogram on 10/04/21-completed. Related to HX: breast cancer Left mastectomy perf ormed in 06/2021 per HCP and pt. Scar notable upon exam, no evidence of infection at surgical site. 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 Follows [place] [facility] every year for full body scan. Discussed keeping appt that has already been scheduled in 10/2021 and then will f/u as needed. Pt and HCP agreeable to this plan. Related to Personal history of other malignant neoplasm of skin Followed by [facility] endo crinology. Referral made to [facility] endocrinology. Currently on levothyroxine: prescirbed by [facility] radio program director. 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 Referral made to [facility] endocrinology. Currently on levothyroxine: prescirbed by [facility] radio program director. Related to Autoimmune thyroiditis She is currently [...] deformities. Pt checks feet regularly. Followed by [facility] endocrinology. Referral made to [facility] endocrinology. She is on numerous medications r/t DM2 that are being managed by [facility] endo: repaglinide, tresiba, and trulicity Related to Type 2 diabetes mellitus without complication, unspecified whether analysis specialist insulin use Normal monofilliment exam. No loss of protection, no ulcers or deformities. Pt checks feet regularly. Followed by [facility] endocrinology. Referral made to [facility] endocrinology. She is on numerous medications r/t DM2 that are being managed by [facility] endo: repaglinide, tresiba, and trulicity Related to Current use of insulin BP stable today: 122 /74Being followed by [facility] engine manager: Dr. Blackman. May consider switching cardiologists (to [facility] provider) after medication changes are completed. [...]
[2025-06-02 13:47] LABS: MANUAL DIFF FLAG NO
--- OUTSIDE RECORDS SUMMARY | 2025-06-02 14:16 | XMS_ITS | Encounter Summary ---
Author Organization [facility] Address [address] [place] [address] Care Team Providers Care Continuous Yarn Dyeing Machine Operator Name Role Phone SukhwinderMallorie shelton Stephie Primary Care Provider [phone] Encounter Details Date Type Department Care Team (Late st Contact Info) Description 08/29/2017 Transplant Conversio n Encounter [facility] Health Information Management [address] [place] [address] Provider, [facility] Social History Tobacco Use Types Packs/Day Years [...] Info) Description 03/02/2026 11:30 AM EDT Follow-Up [facility] [address] [place] [address] Eveline Calderon MD [address] [place] [address] documented as of this encounter Visit Diagnoses Not on filedocumented in this encounter Additional Health Concerns Infection Onset Date Last Indicated Resolved Time COVID-19 - Confirmed infecti on Comment:[facility] 12/28/2020 12/28/2020 01/18/2021 3:47 PM EST R/O Respiratory Virus Infection 12/26/2022 3 12/26/2022 10:05 PM EST R/O Influenza 12/26/2022 12/26/2022 12/26/2022 10: 05 PM EST COVID-19 - Suspected infection 12/26/2022 12/26/2022 12/26/2022 10:05 PM EST VRE Enterococcus 12/26/2022 12/26/2022 documented as of this encounter Care Teams Continuous Yarn Dyeing Machine Operator Relationship Specialty Start Date End Date Mallorie Draper [facility] [place] [address] PCP - General Internal Medicine 01/21/24 documented as of this encounter
--- OUTSIDE RECORDS SUMMARY | 2025-06-02 14:17 | XMS_ITS | Clinical Summary ---
Author Organization [facility] Address [address] [place] [address] Phone Care Team Providers Care Manager Mail Name Role Phone Os, Roxy [employer] Primary Care Provider Unavailab le Allergies Active [...] solution pen-injector every 7 (seven) days Active mycophenolate (CELLCEPT) 250 MG capsule Take 1 capsule by mouth in the morning and 1 capsule in the evening. Active omega-3 (FISH OIL) 1000 MG capsule Take 1,000 mg by mouth 1 (one) time each day 10/19/20 21 Active Multiple Vitamin (multivitamin) capsule Take 2 capsules by mouth 1 (one) time each day 05/01/20 06 Active apixaban (ELIQUIS) 5 MG tablet Take 5 mg by mouth in the morning and 5 mg in the evening. 01/07/20 21 Active clotrimazole (LOTRIMIN) 1 % cream Apply topically 06/13/20 21 Active metoprolol succinate XL (TOPROL XL) 25 MG 24 hr tablet Take 25 mg by mouth 1 (one) time each day 01/07/20 21 Active repaglinide (PRANDIN) 0.5 MG tablet Take 2 mg by mouth 1 (one) time each day 2 tabs am 1 tab pm 1 tab night 06/07/20 20 Active tamoxifen (NOLVADEX) 10 MG chemo tablet Take 2 tablets by mouth 1 (one) time each day 02/01/20 21 Active atorvastatin (LIPITOR) 20 MG tablet Take 40 mg by mouth 1 (one) time each day 05/17/20 22 Active magnesium oxide (MAG-OX) 400 MG tablet Take 1 tablet (400 mg total) by mouth in the morning and 1 tablet (400 mg total) in the evening. 60 tablet 07/17/20 24 025 Active acetaminophen (TYLENOL) 325 MG tablet Take by mouth every 8 hours 04/24/20 25 Active Lantus SoloStar 100 UNIT/ML injection Inject 37 units SQ once daily. 01/08/20 25 Active insulin glargine (Lantus) 100 UNIT/ML injection use one vial as directed from ekit now 03/09/20 25 Active metoprolol tartrate 25 MG tablet Take 25 mg by mouth in the morning and 25 mg in the evening. 04/21/20 25 Active Sodium Zirconium Cyclosilicate 5 g pack Take 5 g by mouth 3 times weekly: Sun and Sunday morning 15 each 05/15/20 25 026 Active Tacrolimus ER 0.5 MG capsule sustained-releas e 24 hr Take 0.5 mg by mouth 1 (one) time each day Active Calcium Carbonate Antacid (Tums Benito Delights) 1177 MG chewable tablet Chew 2 tablets 3 (three) times a day before meals 025 Discontinued levothyroxine (SYNTHROID, LEVOTHROID) 88 MCG tablet Take 88 mcg by mouth 1 (one) time each day 09/06/20 025 Discontinued tacrolimus (PROGRAF) 0.5 MG capsule Take 0.5 mg by mouth 1 (one) time 10/19/20 025 Discontinued(S topped at Discharge) amoxicillin (AMOXIL) 500 MG tablet Take 500 mg by mouth 05/17/20 22 025 Discontinued ergocalciferol 1.25 MG (45590 UT) capsule Take 1 capsule by mouth every 14 (fourteen) days 07/10/20 025 Discontinued metFORMIN (GLUCOPHAGE) 500 MG tablet Take 500 mg by mouth in the morning and 500 mg in the evening. Take with meals. 025 Discontinued aspirin 81 MG chewable tablet Chew 81 mg 1 (one) time each day 025 Discontinued Insulin Degludec (Tresiba) 100 UNIT/ML solution Inject 34 Units under the skin 1 (one) time each day in the morning 025 Discontinued lisinopril 20 MG tablet Take 1 tablet (20 mg total) by mouth 1 (one) time each day 90 tablet 3 02/10/20 25 025 Discontinued(F ormulary change) anastrozole (ARIMIDEX) 1 MG chemo tablet Take 1 mg by mouth 02/22/20 24 025 tacrolimus (PROGRAF) 0.5 MG capsule Take 0.5 mg by mouth in the morning and 0.5 mg in the evening. 03/06/20 025 Discontinued(M ed List Maintenance) Active Problems Problem Noted Date Diagnosed Date [...] Encounters Date Type Department Care Team Description 05/28/2025 Orders Only [facility] [address] [place] [facility] [place] [address] Vicente Benson MD Stage 3b chronic kidney disease (HCC); Liver transplant status (HCC); Other acute kidney failure (HCC); Other proteinuria 05/27/2025 Telephone [facility] [address] [place] [address] [address] [place] [id number] Vicente Benson MD 05/14/2025 2:30 PM EDT Office Visit [facility] [address] [place] [address] Vicente Benson MD Stage 3b chronic kidney disease (HCC) (Primary Dx); Liver transplant status (HCC); Other acute kidney failure (HCC); Other proteinuria 05/14/2025 Office Communication [facility] [address] [address] Vicente Benson MD 04/11/2025 Orders Only [facility] [address] [address] Vicente Benson MD Stage 3a chronic kidney disease (HCC); Other proteinuria from Last 3 Months Immunizations [...] Sign Reading Time Taken Comments Blood Pressure 110/62 05/14/2025 2:29 PM EDT Pulse 80 05/14/2025 2:29 PM EDT Temperature - - Respiratory Rate - - Oxygen Saturation 94% 05/14/2025 2:29 PM EDT Inhaled Oxygen Concentration - - Weight 79.4 kg (175 lb) 05/14/2025 2:29 PM EDT Height 160 cm (5' 3 ) 07/17/2024 2:40 PM EDT Body Mass Index 31 07/17/2024 2:40 PM EDT Plan of Treatment Upcoming Encounters Date Type Department Care Team (Late st Contact Info) Description 06/11/2025 3:00 PM EDT Office Visit [facility] [address] [place] [place] [address] Vicente Benson MD [address] [place] [address] Health Maintenance Due Date Last Done Comments Breast Cancer Screening 1955 Colorectal Cancer Screening: Annual FOBT 2003 Colorectal Cancer Screening: Colonoscopy 2003 Colorectal Cancer Screening: Sigmoidoscopy 2003 Diabetes: Hemoglobin A1C 01/30/2022 05/10/2017 Diabetes: Ophthalmology Exam 01/30/2022 Diabetes: Pedal Pulse Checked 01/30/2022 Diabetes: Sensory Foot Exam 01/30/2022 Diabetes: Visual Foot Exam 01/30/2022 Influenza Vaccine (#1) 2025 4, 08/19/2024, 09/02/2020, Additional history exists Pneumococcal Vaccine: 50+ Years Completed 11/25/2019, 02/14/2016, 02/14/2016, Additional history exists Pneumococcal Vaccine: Peds (0 to 5 Years) and At-Risk Patients (6 to 49 Years) Discontinued 11/25/2019, 02/14/2016, 02/14/2016, Additional history exists Hepatitis B Vaccine Aged Out No longe r eligible based on patient's age to complete this topic Insurance [place] [facility] ([id number]) [employer] Medicare [place] [id number] Care Teams Manager Mail Relationship Specialty Start Date End Date Roxy Leslie NP [address] [place] [address] PCP - General Geriatric Medicine 07/17/24
--- OUTSIDE RECORDS SUMMARY | 2025-06-02 14:17 | XMS_ITS | Patient Health Record ---
Author Organization [facility] Address [address] [place] [address] Care Team Providers Care Group Managing Director Name Role Phone Nahum Fernandez MD Primary Care Provider Dex Live Unavailable [phone] Reason For Referral No Information Medications Medication SIG (Take, Route, Frequency, Duration) Notes Start Date End Date Status Vitamin D (Ergocalciferol) 44171 UNIT TAKE 1 CAPSULE EVERY 2 WEEKS. [...] HCl 0.3 MG TAKE 1 TABLET BY [facility] EVERY DAY Oral for 90 Active [...] HCl 500 MG TAKE 1 TABLET BY [facility] TWICE A DAY WITH MEALS Oral [...] Problem Status W/U Status Risk Notes Problem 147191251 Encounter for screening for malignant neoplasm of colon (Z12.11) Active confirmed Problem Screening for malignant neoplasm of rectum (754114194) Encounter for screening for malignant neoplasm of rectum (Z12.12) Active confirmed Problem 886817068 Long-term use of aspirin therapy (Z79.82) Active confirmed Problem 778699018 Hx of cirrhosis (Z87.19) Active confirmed Plan Of Treatment Future Test Test Name Order Date COLONOSCOPY 06/13/2016 Insurance Providers Payer Name Payer Address Payer Phone Subscriber Number Group Number Insured Name Patient Relationship to Insured Coverage Start Date Coverage End Date MEDICARE OF [place] [address] [place] [address] [id number] GILLES CHONG Self - patient is the insured MEDICAID OF [facility] [address] [place] [address] [id number] GILLES CHONG Self - patient is the insured Medical (General) History Medical History History ICD Code Screening colonoscopy in 03/05/2006-nega tive Cryptogenic cirrhosis with liver transpl ant in 08/26 IDDM Mental retardation Hypothyroidsm Hypertension Gout Basal cell ca on nose Denies SD,CVA,Lung disease,renal disease Hyperlipidemia Edema Surgical History Surgery Date(Month/Year) Liver transplant at [facility] 08/2001 Basal cell ca on nose
[2025-06-02 14:28] LABS: Hematocrit 29.8 % (37.0-47.0); Hemoglobin 9.5 g/dl (12.0-16.0); Imm Gran Abs Auto 0.07 X10*3/uL (0.00-0.03); Imm Gran Pct Auto 0.7 % (0.0-0.4); Lymphocytes Absolute Auto 3.8 X10*3/uL (1.2-4.9); Mean Corpuscular HGB Conc 31.9 g/dl (31.0-35.0); Mean Corpuscular Hemoglobin 29.5 pg (27.0-33.0); Mean Corpuscular Volume 92.5 fL (80.0-98.0); NRBC Abs Auto 0.070 X10*3/uL (0.0-0.012); NRBC Pct Auto 0.7 /100WBC (0.0-0.2); Platelet Count 375 X10*3/uL (160-400); Red Blood Count 3.22 X10*6/uL (4.20-5.50); White Blood Count 9.7 X10*3/uL (4.8-10.8)
[2025-06-02 14:57] LABS: Anion Gap 12 (12-20); Blood Urea Nitrogen 48 mg/dL (9-16); Calcium 9.4 mg/dL (8.4-10.2); Carbon Dioxide 24 mmol/L (22-29); Chloride 109 mmol/L (96-108); Estimated Glomerular Filt Rate 25; Potassium 4.7 mmol/L (3.3-5.1); Sodium 140 mmol/L (135-145)
[2025-06-04 12:59] LABS: Anti Glomerular Basement Memb <1.0 AI; Proteinase 3 PR3 Antibodies <1.0 AI
[2025-06-05 12:28] LABS: Neutrophil Cyto Ab Screen P-ANCA POS (NEGATIVE); P-ANCA Titer 1:320 titer (<1:20)
== END 2025-06-02 13:34 | disposition home or self-care (01) ==
LOC: HO.LAB 13:33
PROVIDERS: Visit Provider Internal Medicine
DX: Z94.4 Liver transplant status (principal); N18.32 Chronic kidney disease, stage 3b; R80.8 Other proteinuria; N17.8 Other acute kidney failure
CPT/HCPCS: 36415; 80048; 83520; 85025; 86021; 86036; 86037

== ENCOUNTER 2025-08-25 14:09 | Outpatient (REF) | payer OTHER, SELFPAY ==
--- OUTSIDE RECORDS SUMMARY | 2025-08-24 11:25 | XMS_ITS | Continuity of Care Document ---
Author Organization [facility] Address 1 [facility] [address] [place] [address] Phone Care Team Providers Care Deposition Reporter Name Role Phone Normile REHANA YANES, Karen Unavailable Unavailabl e Allergies, Adverse Reactions, Alerts Substance Reaction Status Criticality piperacillin Active No Information peanut Active Low Medications Medication Instructions Dosage Effective Dates (start - stop) Status Comments Flintstones Gummies chewable tablet take two daily - Active LANTUS SOLOSTAR 100 UNIT/ML INJECT 37 UNITS SUBCUTANEOUSLY ONCE DAILY - Active allopurinol 300 mg tablet TAKE 1 TABLET BY MOUTH DAILY. - Active atorvastatin 40 mg tablet TAKE 1 TABLET BY MOUTH DAILY - Active diltiazem CD 180 mg capsule,extended release 24 hr TAKE (1) CAPSULE BY MOUTH DAILY - Active Eliquis 5 mg tablet TAKE 1 TABLET BY MOUTH TWICE DAILY - Active levothyroxine 88 mcg tablet TAKE [...] ONCE A DAY AFTER MEALS - Active Vitamin D3 25 mcg (1,000 unit) tablet @@TAKE 1 TABLET BY MOUTH DAILY. - Active FreeStyle Ev 3 [place] Use for continuous glucose monitoring. - Active Send to [facility]. Upgrading from Ev 2 to 3+. FreeStyle Ev 3 Plus Sensor device Use for continuous glucose monitoring. Change every 14 days. - Active Send first order to [facility]. Upgrading from Ev 2 to 3+. Lokelma 10 gram oral powder packet take 1 packet by oral route every day mix in 45 mL water and drink immediately rinse glass with water and drink for full dose 10 G - Active Trulicity 4.5 mg/0.5 mL subcutaneous pen injector INJECT 0.5ML SUBCUTANEOUSLY ONCE WEEKLY ON THE SAME DAY - Active losartan 50 mg tablet take 1 tablet by oral route every day 50 MG - Active ferrous sulfate 325 mg (65 mg iron) tablet take 1 tablet by oral route every day 325 MG - Active acetaminophen 325 mg tablet take 2 tablet by oral route every 8 hours as needed 650 MG - Active pen needle, diabetic 31 gauge x 02/08 use w/ BG checks - Active Prescr ibed by [facility] endo mycophenolate mofetil 250 mg capsule Take 1 [...] w/ BG check - Active Prescribed by [facility] endo Futuro Anti-Embolism Stockings 18-30mmhg apply to legs in the morning and take off in the evening - Active Astagraf XL 0.5 mg capsule,extended release take 1 capsule by oral route 2 times every day in the morning on an empty stomach, 1 hour before or 2 hours after a meal 0.5 MG - Active Prescribed by Dr. Calderon alcohol swabs use when checking BG levels - Active Advance Directives Directive Yes / No Effective Date File Name No Information Encounters Encounter Description Practice Location Reason(s) For Visit Diagnoses Date Provider Formerly [facility], [address] [facility] [address], [place], [place], [id number], [place] tel:[phone] [place] No Information Sep-2 5 Luis F Jones. [address] [place], [place], [id number], [place]. tel:[phone] Formerly [facility], [address] [facility] [address] [facility], [place], [place], [id number], [place] tel:[phone] [place] No Information Sep-1 5 Tarun Steinberg. [address] [place], [place], [id number], [place]. tel:[phone] Formerly [facility], [address] [facility] [address] [facility], [place], [place], [id number], [place] tel:[phone] [place] No Information Sep-0 5 Pravin Aqib. [address] [facility] [place], [place], [id number], [place]. tel:[phone] [facility]ly [facility], [address] [facility] [address], [place], [place], [id number], [place] tel:[phone] [place] Encounter for rehabilitation evaluation Sep-0 5 Theroux Usha. [address] [facility] [place], [address]. tel:[phone] Formerly [facility], [address] [facility] [facility], [place], [place], [id number], [place] tel:[phone] [place] No Information Sep-0 5 Pravin Aqib. [address] [facility] [place], [id number], [place]. tel:[phone] Formerly [facility], [address] [facility] [address] [facility], [place], [place], [id number], [place] tel:[phone] [place] No Information 2 0- 5 Pravin Aqib. [address] [place], [place], [id number], [place]. tel:[phone] Formerly [facility], [address], [place], [place], [id number], [place] tel:[phone] [place] No Information 0 4 5 Pravin Aqib. [address] [place], [place], [id number], [place]. tel:[phone] Formerly [facility], [address], [place], [place], [id number], [place] tel:[phone] [place] No Information 5 Pravin Aqib. [address] [place], [place], [id number], [place]. tel:[phone] Formerly [facility], [address], [place], [place], [id number], [place] tel:[phone] [place] Facial skin lesion Jose Elias- 6 5 Pravin Aqib. [address] [place], [place], [address], [place]. tel:[phone] Formerly [facility], [address], [place], [place], [id number], [place] tel:[phone] [place] Type 2 diabetes mellitus with diabetic chronic kidney disease 5 Pravin Aqib. [address] [place], [place], [address], [place]. tel:[phone] Formerly [facility], [address], [place], [place], [address], [place] tel:[phone] [place] History of basal sheryl l carcinoma (BCC) excisionPersonal history of other malignant neoplasm of skin Jose Elias- 0-202 5 Pravin Aqib. [address] [place], [place], [id number], [place]. tel:[phone] [facility], [facility], [place], [place], [id number], [place] tel:[phone] [place] Acute Visit (chief complaint) Cellulitis of left hand Apr- 5 Pravin Aqib. [address], [place], [place], [address], [place]. tel:[phone] Formerly [facility], [address] [address], [place], [place], [id number], [place] tel:[phone] [place] No Information 5 Tarun Steinberg. [address] [place], [place], [id number], [place]. tel:[phone] Formerly [facility], [address] [address], [place], [place], [address], [place] tel:[phone] [place] Encounter for rehabilitation evaluation 5 Gerald Yeh. [address] [place], [place], [id number]. tel:[phone] Formerly [facility], [address] [address], [place], [place], [id number], [place] tel:[phone] [place] No Information 5 Pravin Aqib. [address], [place], [place], [address], [place]. tel:[phone] Formerly [facility], [address] [address], [place], [place], [address], [place] tel:[phone] [place] Encounter for nutritional assessmentDiabetic nutritional counseling completed 5 Normile Karen. [address] [place], [place], [address], [place]. tel:[phone] [facility], [facility], [place], [place], [address], [place] tel:[phone] [place] Semi-Annual (chief complaint) Encounter for general adult [...] statusCerebral palsy, unspecifiedSecondary hypercoagulable stateUnspecified atrial fibrillation Feb- 0 5 Pravin Aqib. [address] [facility] [place], [address], [place]. tel:[phone] [facility], [address] [facility], [place], [place], [id number], [place] tel:[phone] [place] Acute Visit (chief complaint) Onychogryphosis 5 Pravin Aqib. [address] [place], [place], [id number], [place]. tel:[phone] Former[facility], [address] [facility] [address] [facility], [place], [place], [id number], [place] tel:[phone] [place] Disorder of the skin and subcutaneous tissue, unspecified 5 Tarun Steinberg. [address] [place], [place], [address], [place]. tel:[phone] [facility], [address] [facility], [place], [place], [id number], [place] tel:[phone] [place] Acute Visit (chief complaint) Cough, unspecified type Dec- 5 Pravin Aqib. [address] [place], [id number], [place]. tel:[phone] [facility], [address] [facility], [place], [place], [id number], [place] tel:[phone] [place] Follow-up (chief complaint) No Information 5 Pravin Aqib. [address], [place], [place], [address], [place]. tel:[phone] Former[facility], [address] [facility] [address], [place], [place], [id number], [place] tel:[phone] [place] Encounter for rehabilitation evaluation 4 Gerald Beltran Mallorie Yeh. [address] [place], [place], [id number]. tel:[phone] Formerly [facility], [address] [facility] [address], [place], [place], [id number], [place] tel:[phone] [place] Acute Visit (chief complaint) Viral URI with cough 4 Pravin Aqib. [address], [place], [place], [id number], [place]. tel:[phone] Former[facility], [address] [facility] [address], [place], [place], [address], [place] tel:[phone] [place] Semi-Annual (chief complaint) Disorder of the skin [...] fibrillation, unspecified type 4 Pravin Aqib. [address], [place], [place], [id number], [place]. tel:[phone] Formerly [facility], [address], [place], [place], [id number], [place] tel:[phone] [place] Encounter for nutritional assessment Aug- 4 Normile Karen. [address] [place], [place], [id number], [place]. tel:[phone] Formerly [facility], [address], [place], [place], [address], [place] tel:[phone] [place] Encounter for rehabilitation evaluation Aug- 4 Gerald Yeh. [address] [facility] [place], [place], [id number]. tel:[phone] Formerly [facility], [address], [place], [place], [address], [place] tel:[phone] [place] Encounter for rehabilitation evaluation 4 Josh Hayes. [address], [place], [place], [id number], [place]. tel:[phone] Formerly [facility], [address] [facility], [place], [place], [id number], [place] tel:[phone] [place] Acute Visit (chief complaint) HypomagnesemiaFacial skin lesion Oct-0 4 Pravin Aqib. [address] [place], [address], [place]. tel:[phone] Formerly [facility], [address], [place], [place], [address], [place] tel:[phone] [place] No Information Sep- 4 Pravin Aqib. [address] [place], [place], [id number], [place]. tel:[phone] Formerly [facility], [address], [place], [place], [id number], [place] tel:[phone] [place] Follow-up (chief complaint) Hypomagnesemia Sep-1 4 Aileen Gregg. [address], [place], [place], [address], [place]. tel:[phone] Formerly [facility], [address], [place], [place], [id number], [place] tel:[phone] [place] Follow-up (chief complaint) Acquired absence of left breast and nippleLymphedema, not elsewhere classified 4 Aileen Gregg. [address], [place], [place], [address], [place]. tel:[phone] Formerly [facility], [address] [facility] [address] [facility], [place], [place], [id number], [place] tel:[phone] [place] medication (chief complaint) Hypomagnesemia 4 Bhagavatula Ujjwala. [address] [facility] [address], [place], [place], [address], [place]. tel:[phone] Formerly [facility], [address] [facility] [address] [facility], [place], [place], [id number], [place] tel:[phone] [place] No Information 4 Bhagavatula Giulianojwala. [address], [place], [place], [address], [place]. tel:[phone] Formerly [facility], [address] [facility] [address], [place], [place], [address], [place] tel:[phone] [place] Type 2 diabetes mellitus with hyperglycemia, with long-term current use of insulinLong term (current) use of insulin 4 Pitsiladis Meli. [address] [facility] [address] [place], [id number], [place]. tel:[phone] Formerly [facility], [address], [place], [place], [id number], [place] tel:[phone] [place] Encounter for rehabilitation evaluation 4 Josh Hayes. [address] [facility] [address], [place], [place], [address], [place]. tel:[phone] Former[facility], [address] [facility], [place], [place], [address], [place] tel:[phone] [place] Encounter for nutritional assessmentOther obesity Feb- 4 Normile Karen. [address] [place], [place], [id number], [place]. tel:[phone] Former[facility], [address] [facility] [address] [facility], [place], [place], [id number], [place] tel:[phone] [place] No Information Feb- 4 Os Roxy. [address] [place], [place], [id number], [place]. tel:[phone] [facility], [address], [place], [place], [id number], [place] tel:[phone] [place] Semi-Annual (chief complaint) Encounter for general adult medical examination without abnormal findingsCardiac arrhythmia, unspecified cardiac arrhythmia typeHyperlipidemia, unspecified hyperlipidemia typeType 2 diabetes mellitus with diabetic chronic kidney disease, unspecified CKD stage, unspecified whether plant engineering supervisor insulin useCurrent use of insulinType 2 diabetes mellitus with diabetic peripheral angiopathy without gangrene, unspecified whether plant engineering supervisor insulin useType 2 diabetes mellitus with diabetic polyneuropathy, unspecified whether nursing home insulin use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Autoimmune thyroiditisPrimary hyperparathyroidismLiv er transplantedHypertensi ve chronic kidney disease with stage 1 through stage 4 chronic kidney disease, or unspecified chronic kidney diseaseStage 3a chronic kidney diseaseOsteopenia, unspecified locationCerebral palsy, unspecified typeEdema, unspecified typeInvasive ductal carcinoma of breast, female, leftInfiltrating ductal carcinoma of breast, rightImmunosuppressed status Feb-0 4 Os Roxy. [address] [place], [place], [id number], [place]. tel:[phone] [facility], [address] [facility], [place], [place], [id number], [place] tel:[phone] [place] No Information Mar-2 4 Os Roxy. [address] [place], [place], [address], [place]. tel:[phone] [facility]ly [facility], [address], [place], [place], [id number], [place] tel:[phone] [place] Follow-up (chief complaint) Cerebral palsy, unspecified typeMalignant neoplasm of right female breast, unspecified estrogen receptor status, unspecified site of breast Mar-2 4 Os Roxy. [address], [place], [place], [address], [place]. tel:[phone] [facility], [address] [facility] [address], [place], [place], [id number], [place] tel:[phone] [place] Hypertension, unspecified type Mar-2 0- 4 Os Roxy. [address] [place], [place], [address], [place]. tel:[phone] [facility], [address] [facility] [address], [place], [place], [id number], [place] tel:[phone] [place] SNF Admit (chief complaint) Type 2 diabetes mellitus with diabetic chronic kidney disease, unspecified CKD stage, unspecified whether plant engineering supervisor insulin useStage 3a chronic kidney diseaseEdema, unspecified typeImmunosuppressed statusHypertension, unspecified typeMalignant neoplasm of right female breast, unspecified estrogen receptor status, unspecified site of breast Mar-1 4 Os Roxy. [address] [place], [place], [address], [place]. tel:[phone] [facility], [address] [facility] [address], [place], [place], [id number], [place] tel:[phone] [place] Malignant neoplasm o f unspecified site of unspecified female breast Mar-1 4 Munir Retana. [address], [place], [place], [address], [place]. tel:[phone] [facility], [address], [place], [place], [address], [place] tel:[phone] [place] Sebaceous cyst 4 Phyllis Woody. [address], [place], [place], [id number], [place]. tel:[phone] [facility], [address], [place], [place], [id number], [place] tel:[phone] [place] Malignant neoplasm o f unspecified site of unspecified female breast 4 Os Roxy. [address] [place], [place], [id number], [place]. tel:[phone] [facility], [address], [place], [place], [address], [place] tel:[phone] [place] Malignant neoplasm o f unspecified site of left female breast 4 Tarun Steinberg. [address], [place], [place], [address], [place]. tel:[phone] [facility], [address], [place], [place], [address], [place] tel:[phone] [place] Edema, unspecified type 3 Aileen Marysol. [address], [place], [place], [id number], [place]. tel:[phone] [facility], [address] [facility] [address], [place], [place], [id number], [place] tel:[phone] [place] No Information 3 Os Roxy. [address] [place], [place], [address], [place]. tel:[phone] [facility], [address], [place], [place], [address], [place] tel:[phone] [place] Encounter for nutritional assessmentClass 1 obesity with serious comorbidity and body mass index (BMI) of 33.0 to 33.9 in adult, unspecified obesity typeBody mass index [BMI] 33.0-33.9, adult Sep- 3 Normyogesh Karen. [address], [place], [id number], [place]. tel:[phone] [facility], [address], [place], [place], [address], [place] tel:[phone] [place] Malignant neoplasm o f unspecified site of left female breast 3 Munir Retana. [address], [place], [place], [address], [place]. tel:[phone] [facility], [address], [place], [place], [address], [place] tel:[phone] [place] Semi-Annual (chief complaint) Type 2 diabetes mellitus with stage 2 chronic kidney disease, with long-term current use of insulinLong term (current) use of insulin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Autoimmune thyroiditisPrimary hyperparathyroidismHyp ertensive renal disease, stage 1 through stage 4 or unspecified chronic kidney diseaseLiver transplantedImmunosupp ressed statusCerebral palsy, unspecified type 3 Aileen Gregg. [address], [place], [id number], [place]. tel:[phone] [facility], [address] [facility] [address] [facility], [place], [place], [address], [place] tel:[phone] [place] Encounter for rehabilitation evaluation 3 Davian River. [address], [place], [address]. tel:[phone] [facility], [address], [place], [place], [id number], [place] tel:[phone] [place] Encounter for rehabilitation evaluation 3 Gerald Yeh. [address] [facility] [place], [place], [id number]. tel:[phone] [facility], [address], [place], [place], [address], [place] tel:[phone] [place] Type 2 diabetes mellitus with diabetic peripheral angiopathy without gangrene, with long-term current use of insulinLong term (current) use of insulin 3 Luis Alberto Turner. [address] [place], [place], [address], [place]. tel:[phone] [facility], [address] [address], [place], [place], [address], [place] tel:[phone] [place] No Information 3 Os Royx. [address] [place], [place], [id number], [place]. tel:[phone] [facility], [facility], [place], [place], [id number], [place] tel:[phone] [place] F/U (chief complaint)S ebaceous Cyst (chief complaint) Hyperlipidemia, unspecified hyperlipidemia typeCurrent use of insulinChronic kidney disease due to diabetes mellitusStage 3a chronic kidney diseaseHypertensive renal disease, stage 1 through stage 4 or unspecified chronic kidney diseaseCerebral palsy, unspecified typeInvasive ductal carcinoma of breast, female, leftChronic gout without tophus, unspecified cause, unspecified siteImmunosuppressed status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Autoimmune thyroiditisSebaceous cyst 3 Ephraim Gomez. [address] [place], [address], [place]. tel:[phone] [facility], [address] [facility], [place], [place], [address], [place] tel:[phone] [place] Encounter for nutritional assessmentClass 1 obesity without serious comorbidity with body mass index (BMI) of 32.0 to 32.9 in adult, unspecified obesity typeBody mass index [BMI] 32.0-32.9, adult March- 3 Normile Karen. [address] [place], [place], [address], [place]. tel:[phone] [facility], [address], [place], [place], [id number], [place] tel:[phone] [place] Semi-Annual (chief complaint) Cardiac arrhythmia, unspecified cardiac arrhythmia typeCerebral palsy, unspecified typeOsteopenia, unspecified locationPure hypercholesterolemiaCu rrent use of insulinStage 3a chronic kidney diseaseType 2 diabetes mellitus with diabetic chronic kidney disease, unspecified CKD stage, unspecified whether plant engineering supervisor insulin useType 2 diabetes mellitus with diabetic peripheral angiopathy without gangrene, unspecified whether plant engineering supervisor insulin useType 2 diabetes, controlled, with neuropathyHypothyroidi sm due to Quinton's thyroiditisAutoimmune thyroiditisPrimary hyperparathyroidismHyp ertensive renal disease, stage 1 through stage 4 or unspecified chronic kidney diseaseInvasive ductal carcinoma of breast, female, leftLiver transplantedImmunosupp ressed status 3 Os Roxy. [address] [facility] [place], [id number], [place]. tel:[phone] [facility], [address] [facility] [address] [facility], [place], [place], [id number], [place] tel:[phone] [place] No Information 3 Os Roxy. [address], [place], [id number], [place]. tel:[phone] [facility], [address] [facility] [address], [place], [place], [id number], [place] tel:[phone] [place] Oropharyngeal dysphagia Jan- 3 Caselden Kristin. [address] [facility] [address], [address], [place]. tel:[phone] [facility], [address], [place], [place], [address], [place] tel:[phone] [place] Oropharyngeal dysphagia Jan- 3 Caselden Kristin. [address] [facility] [place], [address], [place]. tel:[phone] [facility], [address], [place], [place], [address], [place] tel:[phone] [place] Oropharyngeal dysphagia Mar-1 5 3 Caseldadalid Kristin. [address] [facility] [place], [address], [place]. tel:[phone] [facility], [facility], [place], [place], [address], [place] tel:[phone] [place] No Information Mar-0 3 Os Roxy. [address] [facility] [place], [address], [place]. tel:[phone] [facility], [address] [facility], [place], [place], [address], [place] tel:[phone] [place] Oropharyngeal dysphagia Mar-0 2 3 Casesaad Foster. [address] [facility] [place], [place], [id number], [place]. tel:[phone] [facility], [address] [facility] [address] [facility], [place], [place], [id number], [place] tel:[phone] [place] Oropharyngeal dysphagia Feb-1 3 Caseldadalid Foster. [address] [facility] [place], [address], [place]. tel:[phone] [facility], [address] [facility] [address] [facility], [place], [place], [id number], [place] tel:[phone] [place] Dysphagia, unspecifi ed typeOther dysphagia Feb-0 3 Caseldadalid Foster. [address] [facility] [place], [address], [place]. tel:[phone] Formerly [facility], [address] [facility], [place], [place], [id number], [place] tel:[phone] [place] Non-recurrent abdominal hernia without obstruction or gangrene, unspecified hernia type Feb-0 8 3 Os Roxy. [address] [facility] [place], [id number], [place]. tel:[phone] Formerly [facility], [address], [place], [place], [id number], [place] tel:[phone] [place] [facility] Evaluation (chief complaint)P ost Hospital Evaluation (chief complaint) Cerebral palsy, unspecified typeLiver transplantedStage 3a chronic kidney disease 3 Os Roxy. [address] [place], [place], [id number], [place]. tel:[phone] Formerly [facility], [address], [place], [place], [id number], [place] tel:[phone] [place] No Information 3 Luis Alberto Turner. [address] [place], [place], [id number], [place]. tel:[phone] Formerly [facility], [address], [place], [place], [id number], [place] tel:[phone] [place] Dysphagia, unspecifi ed type 3 Luis Alberto Turner. [address] [place], [place], [id number], [place]. tel:[phone] Formerly [facility], [address], [place], [place], [id number], [place] tel:[phone] [place] Difficulty in walkin g, not elsewhere classified 3 Davian River. [address] [place], [address]. tel:[phone] Formerly [facility], [address], [place], [place], [id number], [place] tel:[phone] [facility] DC (chief complaint) Type 2 diabetes mellitus with diabetic chronic kidney disease, unspecified CKD stage, unspecified whether plant engineering supervisor insulin useStage 3a chronic kidney diseaseLiver transplantedAbdominal hernia without obstruction and without gangrene, recurrence not specified, unspecified hernia typeImmunosuppressed statusCerebral palsy, unspecified type 3 Deep Morales. [address] [place], [place], [id number], [place]. tel:[phone] Formerly [facility], [address], [place], [place], [id number], [place] tel:[phone] [place] SNF ADMIT (chief complaint) Non-recurrent abdominal hernia with obstruction without gangrene, unspecified hernia typeLiver transplantedImmunosupp ressed statusType 2 diabetes mellitus with diabetic chronic kidney disease, unspecified CKD stage, unspecified whether plant engineering supervisor insulin useCardiac arrhythmia, unspecified cardiac arrhythmia typeLeukocytosis, unspecified type 3 Deep Morales. [address], [place], [place], [id number], [place]. tel:[phone] Formerly [facility], [address] [facility], [place], [place], [id number], [place] tel:[phone] [place] No Information 3 Os Roxy. [address] [place], [place], [id number], [place]. tel:[phone] Formerly [facility], [address] [facility] [address] [facility], [place], [place], [id number], [place] tel:[phone] [place] Encounter for rehabilitation evaluation 2 Davian River. [address], [place], [address]. tel:[phone] Formerly [facility], [address] [facility], [place], [place], [id number], [place] tel:[phone] [place] Encounter for rehabilitation evaluationAlteration in performance of activities of daily livingMild cognitive impairment, so stated 2 Gerald Yeh. [address] [place], [place], [id number]. tel:[phone] Formerly [facility], [address], [place], [place], [id number], [place] tel:[phone] [place] Encounter for nutritional assessmentExcessive carbohydrate intakeDeficiency of other specified nutrient elementsOther obesity 2 Normile Karen. [address] [place], [place], [id number], [place]. tel:[phone] Formerly [facility], [address] [facility] [address] [facility], [place], [place], [id number], [place] tel:[phone] [place] Hypertensive chronic kidney disease with stage 1 [...] controlled, with neuropathy 2 Os Roxy. [address] [facility] [place], [id number], [place]. tel:[phone] Formerly [facility], [address] [facility], [place], [place], [id number], [place] tel:[phone] [place] No Information 2 Os Roxy. [address] [facility] [place], [place], [address], [place]. tel:[phone] Formerly [facility], [address] [facility], [place], [place], [id number], [place] tel:[phone] [place] PHV (chief complaint) HerniaLiver transplantedHistory of small bowel obstruction Jul- 2 Os Roxy. [address] [facility] [place], [id number], [place]. tel:[phone] [facility], [address] [facility], [place], [place], [id number], [place] tel:[phone] [place] Liver transplantedHernia Sep- 2 Luis Alberto Johnny. [address] [place], [place], [id number], [place]. tel:[phone] Formerly [facility], [address] [facility] [address] [facility], [place], [place], [id number], [place] tel:[phone] [place] No Information 2 Os Roxy. [address] [place], [place], [address], [place]. tel:[phone] [facility], [address] [facility], [place], [place], [id number], [place] tel:[phone] [place] Hypertension, unspecified type 2 Luis Alberto Johnny. [address] [place], [place], [id number], [place]. tel:[phone] [facility], [address] [facility], [place], [place], [address], [place] tel:[phone] [place] Encounter for rehabilitation evaluationAlteration in performance of activities of daily livingMild cognitive impairment, so stated 2 Gerald Yeh. [address] [facility] [address] [place], [place], [id number]. tel:[phone] [facility], [address] [facility], [place], [place], [id number], [place] tel:[phone] [place] Encounter for nutritional assessmentAbnormal weight gain 2 Normile Karen. [address] [place], [place], [id number], [place]. tel:[phone] [facility], [address] [facility] [address] [facility], [place], [place], [id number], [place] tel:[phone] [place] Semiannual (chief complaint) Hypertensive chronic kidney disease with stage 1 through stage 4 chronic kidney disease, or unspecified chronic kidney diseaseHyperlipidemia, unspecified hyperlipidemia typeCurrent use of insulin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Autoimmune thyroiditisPrimary hyperparathyroidismLiv er transplantedStage 3a chronic kidney diseaseHx of left mastectomyImmunosuppre ssed statusCerebral palsy, unspecified type 2 Os Roxy. [address] [place], [place], [id number], [place]. tel:[phone] Formerly [facility], [address], [place], [place], [id number], [place] tel:[phone] [place] Port-A-Cath in place Hx of left mastectomy 2 Os Roxy. [address] [place], [place], [id number], [place]. tel:[phone] Formerly [facility], [address], [place], [place], [id number], [place] tel:[phone] [place] Liver transplanted 2 Os Roxy. [address] [place], [place], [id number], [place]. tel:[phone] Former[facility], [address] [facility] [address] [facility], [place], [place], [id number], [place] tel:[phone] [place] No Information 1 Luis Alberto Turner. [address] [place], [place], [id number], [place]. 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 [address] [place], [place], [id number], [place]. tel:[phone] Formerly [facility], [address], [place], [place], [id number], [place] tel:[phone] [place] Encounter for nutritional assessmentDiabetes education, encounter for 1 Sara Pool. [address] [place], [address]. tel:[phone] Former[facility], [address] [facility], [place], [place], [id number], [place] tel:[phone] [place] Encounter for rehabilitation evaluation 1 Davian [address]. [address] [facility] [address], [place], [address]. tel:[phone] Formerly [facility], [address] [address], [place], [place], [id number], [place] tel:[phone] [place] Encounter for rehabilitation evaluationMild cognitive impairment, so statedAlteration in performance of activities of daily living 1 Gerald Nobles Beth. [address] [facility] [place], [place], [id number]. tel:[phone] Formerly [facility], [address] [address], [place], [place], [id number], [place] tel:[phone] [place] PEE (chief complaint) Encounter for general adult [...] type 1 Os Roxy. [address], [place], [place], [id number], [place]. tel:[phone] Formerly [facility], [address] [address], [place], [place], [id number], [place] tel:[phone] [place] HX: breast cancerCardiac arrhythmia, unspecified cardiac arrhythmia type 1 Sara Pool. [address], [place], [address]. tel:[phone] Former[facility], [address] [address], [place], [place], [id number], [place] tel:[phone] [place] No Information 1 Luis Alberto Turner. [address] [place], [place], [id number], . tel:[phone] Former[facility], [address] [address], [place], [place], [id number], [place] tel:[phone] [place] Intake (chief complaint) Encounter for general adult medical examination without abnormal findingsEncounter for screening for respiratory tuberculosis 1 Luis Alberto Turner. [address] [place] [address], [id number], [place]. tel:[phone] Family History Family Member Type Diagnosis Age At Onset No Information Immunizations Vaccine Date Status Comments Fluzone High Dose administered So urce: New Immunization Record Zoster recombinant subunit administered S ource: New Immunization Record Zoster recombinant subunit administered S ource: New Immunization Record FLUAD QUAD - SENIO R DOSE administered Source: New Immuniza tion Record Fluzone High-Dose [id number] administered Source: New Immunization Record COVID-19 Pfizer [...] Insurance type Covered green party ID Samra chicas(sue) [employer] 16 [id number] [employer] 16 [id number] [employer] 16 [id number] [employer] 16 [id number] [employer] 16 [id number] [employer] 16 [id number] Social History Type Description Quantity Date Captured Comments Sex Female Smoking Status No Information Chief Complaint And Reason For Visit No Information Plan Of Treatment Date Type Action Status Referral Ordered: Referrals: Occupational Therapy ordered Referral Ordered: Referrals: Ophthalmology. Evaluate and [...] Cardiology Appointment date/timeframe: 11/28/2021 ordered Appointment Seema DavidED Future Order: Lab Order LAURA Strong ([id number]), Sent on: Sent Future Order: Lab Order BASIC OK TABOLIC PANEL ([id number]), Sent on: Sent Future Order: Lab Order LAURA Strong ([id number]), Ordered on: Ordered Future Order: Lab Order BASIC OK TABOLIC PANEL ([id number]), Ordered on: Ordered Future Order: Radiology Order Zheng ne density study (by DEXA); axial skeleton (e.g., hips, pelvis, spine) ([id number]), Ordered on: Ordered Future Order: Radiology Order Ma mmogram (Screen); Bilat, 2-view study of each breast, incl computer-aided detection when performed ([id number]), Ordered on: Ordered History Of Present Illness Encounter Date Complaint History Of Prese nt Illness Acute Visit Seema is a 69 yea rs old female who was seen for an acute visit at the [facility]. Pt previously had a laceration to [...] seen in her room at [facility].There have been no ER visits, hospital admissions, or SNF stays in the last 6 months. Collective reviewed.Diagnoses Reviewed.-No new diagnosesReferrals reviewed.Consults: w/in the last year-Dental: no dentures in place, referral made-Podiatry: sees Krason q3 months-Vision: Dr. Leiva; order in place-Endocrinology: [facility] 09/25/23-no changes made-Hem/Onc: [facility] 02/22/24-post right masectomy; med changes made; DEXA ordered-Surgery: [facility] 02/21/24-post right masectomy-Dermatology: referral in for f/u on sebacious cyst scheduled for 11/13/24-Liver transplant GI: [facility] liver clinic Dr. Calderon 02/05/24: have not [...] seen for an acute visit at the [facility]. She was seen and evaluated for a [...] seen in her room at [facility].There have been no ER visits, hospital admissions, or SNF stays in the last 6 months. Diagnoses Reviewed.-No new diagnosesReferrals reviewed.Consults: w/in the last year-Dental: no dentures in place, referral made-Podiatry: cristy Gonzalez q3 months-Vision: Dr. Leiva; order in place-Endocrinology: [facility] 09/25/23-no changes made-Hem/Onc: [facility] 02/22/24-post right masectomy; med changes made; DEXA ordered-Surgery: [facility] 02/21/24-post right masectomy-Dermatology: referral in for f/u on sebacious cyst scheduled for 11/13/24-Liver transplant GI: [facility] liver clinic Dr. Jung 02/05/24: [...] seen in her room at [facility].Diagnoses Reviewed.-No new diagnosesReferrals reviewed.Consults: w/in the last year-Dental: no dentures in place, referral made-Podiatry: cristy Gonzalez q3 months-Vision: Dr. Leiva; order in place-Endocrinology: [facility] 09/25/23-no changes made-Hem/Onc: [facility] 02/22/24-post right masectomy; med changes made; DEXA ordered-Surgery: [facility] 02/21/24-post right masectomy-Dermatology: referral in for f/u on sebacious cyst scheduled for 11/13/24-Liver transplant GI: [facility] liver clinic Dr. Jung 02/05/24: [...] seen today for a SNF admission to [facility].Ppt currently lives at [facility]: 02/05/24-02/08/24CC: scheduled right mastectomy w/ Dr. Cardenas course summery:-Course complicated by hypotension, MARIA ESTHER, uncontrolled hyperglycemia and subsequently uncontrolled blood pressure which resolved. Discharged to rehab for further assist w/ ALEX drain management and insulin. Right breast cancers/p right mastectomy and sentinel lymph node biopsy on of L breast cancer treated with simple mastectomy and chemotherapy, now with right breast cancer.SNF: [facility] 02/08/24-02/14/24ospital medications reviewed. Updated EMR.SNF summery: no significant medical information during SNF stay. Ppt required SNF for drain and insulin management. F/u visits:-PCP -Nan Gusman (surgeon)Today:-Ppt reports she feels well and is adjusting back at [facility]. No concerns at this time. Incision site w/o concerns for infection. ALEX drains had been emptied by [facility] prior to my arrival per ppt. BP 132/92. Stable at this time- would continue current medication regimen. SNF Admit Seema is a 68 yea r old female who is being seen today for a SNF admission to [facility].Ppt currently lives at [facility]: 02/05/24-02/08/24CC: scheduled right mastectomy w/ Dr. Cardenas course summery:-Course complicated by hypotension, MARIA ESTHER, uncontrolled hyperglycemia and subsequently uncontrolled blood pressure which resolved. Discharged to rehab for further assist w/ ALEX drain management and insulin. Right breast cancers/p right mastectomy and sentinel lymph node biopsy on 02/04His of L breast cancer treated with simple mastectomy and chemotherapy, now with Rt breast cancer.PLAN: -Ice to axilla, no ice to chest incision- Continue tamoxifen daily, -Monitor ALEX outputs- Incentive spirometryoutpatient follow up with surgery would be arranged by surgery service. would be discharged with ALEX drain.SNF: [facility] 02/08/24-02/08/24: Hospital medications reviewed.Updated EMR.Started:-Tamoxifen 20mg daily -Multivitamin 1 chew ocyrl-Lgwsz-1 Polyunsaturated Fatty Acids 1000mg daily Changed:-Insulin Lispro [...] fallen off or post op visitF/u visits:-PCP -aNn Gusman (surgeon)Today:-Ppt reports feeling well. Denies any pain. She reports working w/ [employer]. -Incision site looks C/D/I no signs of infection-[address] measuring about 100cc eachPlan:-Can return back to [facility] after ALEX drains removed and ppt is medically stable-Monitor weekly labsReviewed plan w/ nursing at [facility]. Semi-Annual Patient is a 68 year old female who has been enrolled in the [facility]ACE program since 09/2021 and is being seen for their semi annual exam. She lives at [facility] and comes to the [facility] site as [...] Reviewed.-No new diagnosesReferrals reviewed.Consults:-Liver transplant physician (GI): [facility] liver clinic, Dr. Jung- last seen 09/2022 for s/p liver transplant for cruptogenic cirrhosis. Missing meds since the spring, urgent referral to GI.-Emr Specialist: 10/2022- [facility]- no changes-Oncology: [facility] Dr. Coto- Continue tamoxifen for a total of at least 5 years. Mammogram due in September (oncology schedule). 2000/breast cancer stage II-III of left breast s/p masectomy w/ completed chemo on tamoxifin-continuing to take at this time for prophylaxis. -Endocrinology: [facility] endocrine- currently on numerous medications r/t DM. Last seen 2Recommended increase the 75/25 in AM to 28 units.-Dermatology: [facility] (previously doing yearly skin checks)Vision: Dr. Leiva, sees regularly.Dental: no dentures in place, referral made. Podiatry: [facility] podiatry.Screenings: Continuing to screen-Mammogram: 10/10/2022, yearly mammograms. [...] GI referral. She has restarted her medications. F/U Sebaceous Cyst Comments: Left p osterior popliteal space with dry open sebaceous cystNo periwound erythemaJane brought it up as something that has been bothering her. She has not pain in the area. Comments: Being seen in follow up as she is starting with a new [facility] service and she needs provider visit. She lives at an [facility].Requires [facility] services for insulin administration. Her FSBS has been running in the mid 100s. She uses a CGM and self monitors. Comments: Seema clemons s a 67 year old female who has been enrolled in the [facility]ACE program since 09/2021 and is being seen for their semiannual exam.Patient had been seen in her room at [facility].Diagnoses Reviewed.-No new diagnosesReferrals reviewed.Consults:-Liver transplant physician (GI): [facility] liver clinic, Dr. Jung- last seen 09/2022 for s/p liver transplant for cruptogenic cirrosis 2000/breast cancer stage II-III of left breast s/p masectomy w/ completed chemo on tamoxifin-continuing to take at this time for prophylaxis. Follow up in 1 year.-Emr Specialist: 10/2022- [facility]- no changes-Oncology: [facility] Dr. Coto- Continue tamoxifen for a total of at least 5 years. Mammogram due in September (oncology schedule). Return in 6 months for f/u.-Endocrinology: [facility] endocrine- currently on numerous medications r/t DM. Last seen 2Recommended increase the 75/25 in AM to 28 units.-Dermatology: [facility] (previously doing yearly skin checks)Vision: Dr. Leiva, sees regularly.Dental: no dentures in place, referral made. Podiatry: [facility] podiatry.Screenings: Continuing to screen-Mammogram: 10/10/2022, yearly mammograms. [...] is being seen today for a PHV. [facility] 12/26/22-12/29/22Dx: MARIA ESTHER and UTI-Prior to admission lico was hypotensive and labs were ordered showing a GFR 14 and creat of 3.51. Lico is a liver transplant ppt (2000) and has been following Dr. Calderon at [facility]. Discussed lab findings and they advised to send to [facility]. Lico did have a recent hernia repair in November at [facility] with complications including hemmorhagic shock and was treated for aspiration pneumonia. MARIA ESTHER was thought to be ATN in the setting of recent adverse reaction to zosyn. Ppt received IVF where creat improved to 1.5 upon discharge. Started on cipro IV on 12/27 culture negative. Discharged home to [facility].Med changes:-d/c'd clonidine -d/c'd lasix-d/c'd lisinopril-d/c'd metoprolol succinate-started metoprolol tartrate 25mg BID-resume cellcept (prescribed by Dr. Molinaday:-Ppt reports feeling better . Negative ROS. No complaints at this time. BP stable 124/82.Plan: -order CBC and BMP for in 1 week-med changes updated-appt with Dr. Calderon on 01/04/23 Post Hospital Evaluation [facility] DC SEEMA DAVID [facility] DC SUMMARY Patient encounter date 12/20/22DC date 12/21/22[facility] for robotic repair [...] in the transplant clinic. --[facility]ES [facility]Cell[facility] HELDPrograf 0.5mg BID continued Zestril 5mg QD added --SNF COURSEPpt [facility] very well [facility]She remained without painShe did well in PTOTShe [...] and dc order placed in chart APPOINTMENTS01/04/23 [facility] liver transplant [id number] 98.4HR 8602 96ROSNo N V F Cno [...] erythema edema or drainage. SNF ADMIT SEEMA DAIVD [facility] ADMITHPIfrom [facility] to [facility] on 11/29 for robotic repair [...] the transplant clinic. MED CHANGES--Added:Cipro 500mg BID d7cGmflohqrfrv 100mg BID p6d--Qtkygzw:Cellcept HELDPrograf 0.5mg BID --DCAmoxTresibaVEOIID161/82RR 16T 99, recheck 97.8HR 86 palp02 96%ROSNo [...] clemons s a 66yo female resented to [facility] with less than 1 day of abdominal pain, nausea, and two episodes of emesis with concern for high-grade SBO at the level of her ventral hernia. She was subsequently transferred to [facility] d/t her history of liver transplant and the complexity of her ventral hernia.Upon arrival to [facility] her abdominal pain had resolved, and on [...] negative.Plan: family requesting a follow up with [facility] GI as pt had been following (order in place)-Chuck (brother) reports [facility] appt is for 09/19/22 at 9:30a. No other concerns at this time. PHV Comments: Seema clemons s a 66 year old female who has been enrolled in the PACE program since 09/2021 and is being seen for their semiannual exam.Patient had been seen in her room at [facility].There have been no hospitalizations, SNF admission and/or ER visits in the last six months.CC: no concerns reported from pt nor brother/HCP Chuck.Diagnoses Reviewed.-No new diagnosesConsults:-Liver transplant physician (GI): [facility] liver clinic, Dr. Jung- last seen 09/2021 for s/p liver transplant for cruptogenic cirrosis 2000/breast cancer stage II-III of left breast s/p masectomy w/ completed chemo on tamoxifin-continuing to take at this time for prophylaxis. Follow up in 1 year (09/2022).-Emr Specialist: [facility] Dr. Blackman- Will consider changing over to [facility] practices once they determine the need for eliquis as they have been monitoring for some time. -Oncology: [facility] Dr. Coto- Discussed w/ pt, would like to keep as they have her currently on Tamoxifen-Endocrinology: [facility] endocrine- currently on numerous medications r/t DM. Last seen 02/10/22. Recommended starting a freestyle ev which has been ordered for better BS monitoring. -Dermatology: [facility]- had been following yearly for skin survalience s/p basal cell carcinoma. Had discussed keeping their upcoming appt in October and would then see [facility] derm as needed- no appt in chartVision: Dr. Leiva, sees regularly.Dental: no dentures in place, referral made. Podiatry: [facility] podiatry.Screenings: Continuing to screen-Mammogram: 10/04/21, yearly mammograms.-Colonoscopy:2015, [...] currently is a resident at [facility]. Patient and brother/HCP, Chuck, have no concerns at this time. Diagnoses reviewed.Medications reviewed.Advance Directives discussed- pt and family is unsure at this time, would like to talk to all family members before final decision. Conversation started. -Liver transplant physician: [facility] liver clinic, Dr. Jung- sees regularly. -Emr Specialist: [facility] Dr. Blackman- currently pt is on a holter monitor, resource development manager determining if she should remain on eliquis. She is scheduled to see him 10/11/21. Will consider changing over to [facility] practices once they determine the need for eliquis as they have been monitoring for some time. -Oncology: [facility] Dr. Coto- Discussed w/ pt, would like to keep as they have her currently on Tamoxifen-Endocrinology: [facility] endocrine- currently on numerous medications r/t DM. Will put out a referral to [facility] endo. -Dermatology: [facility]- had been following yearly for skin survalience s/p basal cell carcinoma. Discussed keeping their upcoming appt in October and would then see [facility] derm as needed. Vision: Dr. Leiva, sees regularly.Dental: no dentures in place, referral made. Podiatry: will be transitioning to [facility] podiatry.Mammogram: 10/04/21, yearly mammograms.Bone density: last in 2019, scheduled every other year (due 2021)Colonoscopy: 2015, next due in 10 years (2025)WMM: Being able to care for self at current functional level. PEE Intake Very pleasant wo man, accompanied by her [id number], brother Chuck and case therapist from [facility]. The patient apparently had intake in February however decision was made to delay proceeding due to living circumstances/roommate. The roommate has unfortunately moved out due to illness and the patient is now at the head of the waiting list for [facility] assisted living.We regrettably have virtually no medical records. There are a number of notes/lists that were printed out from the [facility] system however, no PCP records nor records from any of the subspecialists that she sees ([place]). Interestingly, the family had no awareness of [...] dysphagia. Hearing is fairly good. She sees shock absorber installer, the exact extent of any vision impairment [...] the very least:Liver transplant physician at [facility] (Dr. Calderon)Indicated that the sprayer machine (Dr. Carlos) is in networkDr. Faizan Cali, her shock absorber installer is in networkI explained that if needed oncology service (likely needed as she is on maintenance tamoxifen), endocrinology (very complicated regimen), GI, surgery, cardiology would likely be transitioned to [facility] practice. I explained that this helps maintain continuity of care and allows us access to records. I indicated that [facility] it is our preferred hospital and that we strongly encourage its use somewhat negating any benefit of continuity with previous providers as they do not go to [facility]. I did not specifically address the patient care provider. They are aware that there is a patient care provider that goes to [facility] although I am unclear if it someone we are affiliated with.Medication, which is extensive, was updated via the list that the brother provided.Problem list was updated to the best of my ability based upon the limited information available to us. Suggestion that there was a bone density done in 2020. I cannot explicitly know why she is seeing a sprayer machine. The resource development manager seems to surround the issue of the arrhythmia, again presumed atrial fibrillation. The role of the freelance court stenographer is unclear. The general surgeon performed the [...] living assumes management of her medications via [facility] Instructions Date Instruction Additional Infor hetal Patient with a left hand laceration that required suturingPhysical exam today shows erythema, swelling but no dischargeMild tenderness to palpationWill treat with 5 day course of DoxycyclineWill continue to monitor Related to Cellulitis of left hand Patient had Afib s/p chemoSecondary hypercoagulable stateContinue EliquisWill continue to monitor Related to Secondary hypercoagulable state Prograf ongoing Cont inues to follow up with [facility]- Dr Olson continue to monitor Related to Liver transplant status Patient with Type 2 DM with hyperglycemiaFBS numbers have improved but still mildly elevated at 177 on the morning of examContinue insulinContinue Aracely and PrandinLeland keep the same dosage for now to avoid hypoglycemiaWill check HgA1C with next visitWill continue to monitor Related to snf (current) use of insulin Patient is here for Semi-Annual examCurrently stable and no acute issuesHCP is activatedNo MOLST- Full CodeWill continue to monitor and provide support Related to Encounter for general adult medical examination without abnormal findings Patient with Type 2 DM and CKDCurrently stableWill continue to monitor Related to Chronic kidney disease, stage 3a Patient had Atrial F ibrillation during chemotherapySince then, she has not had another episodeSinus rhythm todayContinue anticoagulationContinue rate control with BB and CCBWill continue to monitor Related to Unspecified atrial fibrillation Patient with HTN and CKD, stage 3aCurrently stableBPs have been within good rangeContinue current managementWill continue to monitor Related to Hypertensive chronic kidney disease with stage 1 through stage 4 chronic kidney disease, or unspecified chronic kidney disease History of CP docume nted in preenrollment records. Currently not following neurologist or is on any medications. Brother reports she had CP since , she used to see somebody for developmental disability. She never required braces . Cognitive delay evident HCP invoked Related to Cerebral palsy, unspecified Patient with mixed h yperlipidemiaLast lipid panel shows levels well within rangeContinue LipitorWill continue to monitor Related to Mixed hyperlipidemia Patient with primary hyperparathyroidismCalcium and PTH within rangeCurrently asymptomaticPt does not want a surgeryWill continue to monitor Related to Primary hyperparathyroidism Patient with Type 2 DM with hyperglycemiaFBS numbers have improved but still mildly elevated at 177 on the morning of examContinue insulinContinue Trulicity and PrandinWill keep the same dosage for now to avoid hypoglycemiaWill check HgA1C with next visitWill continue to monitor Related to Type 2 diabetes mellitus with hyperglycemia Patient with Type 2 DMMost recent HgA1C 8.2Continue current management for optimal sugar levels controlPt with diabetic peripheral angiopathy as evidenced by dry, shiny, hairless LE BL as well as decreased pedal pulsesContinue statinWill continue to monitor Related to Type 2 diabetes mellitus with diabetic peripheral angiopathy without gangrene Patient with Type 2 DM and peripheral polyneuropathyAbnormal monofilament examDiscussed checking feet daily at nightOptimal control of blood sugarsWill continue to monitor Related to Type 2 diabetes mellitus with diabetic polyneuropathy Patient with Type 2 DM and CKDCurrently stableWill continue to monitor Related to Type 2 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 TSH within rangePt remains asymptomatic at this timeContinue LevothyroxineWill continue to monitor Related to Autoimmune thyroiditis Ppt is on immunosupp ression medications due to her history of liver transplant and breast cancer Continue tacrolimus for liver transplantContinue Anastrozole for breast cancerWill continue to monitor Related to Immunodeficiency, unspecified Patient with BL inva sive ductal carcinomaFollowed [...] of unspecified site of left female breast Chemotherapy was the first line of action; [...] site of right female breast Patient with onychau xis of the toes [...] Cont inues to follow up with [facility]- Dr Olson continue to monitor [...] next visitWill continue to monitor 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 Patient with Type 2 DM with hyperglycemiaFBS numbers have improved but still mildly elevated at 177 on the morning of examContinue insulinContinue Trulicity and PrandinWill keep the same dosage for now to avoid hypoglycemiaWill check HgA1C with next visitWill continue to monitor Related to Type 2 diabetes mellitus with hyperglycemia, with long-term current use of insulin Patient with mixed h [...] URI as multiple other participants at the [facility] have been sick with similar symptomsSymptomatic managementEncouraged [...] monthsscheduling daily Mg replacement8.9.24critical lab1.4 today at [id number] daily replacement sent recheck labs sunday Related to Hypomagnesemia critical lab1.4 toda y at [id number] daily replacement sent recheck labs sunday Related [...] I suspect they will be). 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 This should be continued for 7-10 years in her situation - Start zoledronic acid 4mg every 6 months. - I will obtain records from [facility]. It is likely that she would [...] months. - I will obtain records from [facility]. It is likely that she would [...] symptoms suggestive today Related to Immunosuppressed status Followed by hem/oncP pt being treated currently [...] diabetes mellitus with diabetic polyneuropathy, unspecified whether plant engineering supervisor insulin use Continued to be foll ow by [facility] endocrinology primarily for diabetes. 08/2023: TSH w/ reflex 3.08Ordered TSHContinue levothyroxine Related to Autoimmune thyroiditis Currently takes mult ivitamin, tums, and vit D. 08/2023 calcium 8.81 PTH 129Ordered vit D, and calcium level.Currently followed by endocrine primarily for diabetes.-No changes in regards to hyperpartathyroidism Related to Primary hyperparathyroidism Prograf ongoing [facility] liver clinic (GI), Dr. Jung- had f/u appt on 01/04/2023 for s/p liver transplant for cruptogenic cirrosis Related to Liver transplanted BPs have been stable Continue metoprolol and diltiazemCKDGFR 64Avoid nephrotoxic medications Related to Hypertensive chronic kidney disease with stage 1 through stage 4 chronic kidney disease, or unspecified chronic kidney disease Continued to be foll ow by [facility] endocrinology primarily for diabetes. 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 Shiny hairless guzman LE. -Continue statin Related to Type 2 diabetes mellitus with diabetic peripheral angiopathy without gangrene, unspecified whether plant engineering supervisor insulin use She is currently on eliquis and metoprolol for afib.Pt had afib during her chemotherapy tx per brother/HCP. [facility] had assessed ppt on 05/17/22 where they were going to continue the eliquis and metoprolol until they further review ppts holter and ECHO from [facility].No longer following cardiology regularlyToday: RRR Related to Cardiac arrhythmia, unspecified cardiac arrhythmia type 10/02/23 Total chol 2 67, HDL 42, TRI 467, Ratio 6.4, Non HDL 225, GLU 176-Continue LipitorLipid panel for semiMay consider increasing lipitor Related to Hyperlipidemia, unspecified hyperlipidemia type Ppt reports she feel s well and is adjusting back at [facility]. No concerns at this time. Incision site [...] never required braces . Cognitive delay evident; ibnkngm06/2022 MOCA MOCA Related to Cerebral palsy, unspecified type Had period of hypote nsion which subsequently turned into hypertension. Would like to monitor BPs and if BPs remain elevated may implement their recommendations of adding clonidine 0.2mg daily Related to Hypertension, unspecified type 02/08/24 [facility]Course complicated by hypotension, MARIA [...] discharged with ALEX drain.Plan:-Can return back to [facility] after ALEX drains [...] kidney disease, unspecified CKD stage, unspecified whether plant engineering supervisor insulin use GFR -02/05 33-02/07 60 Avoid nephrotoxic medications Related to Stage 3a chronic kidney disease History of CP docume nted in preenrollment records. Currently not following neurologist or is on any medications. Brother reports she had CP since , she used to see somebody for developmental disability. She never required braces . Cognitive delay evident; [id number]/2022 MOCA MOCA Related to Cerebral palsy, unspecified [...] d/t leurkocytosis after surgery- 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 Related to Autoimmune [...] never required braces . Cognitive delay evident; kaoxqno36/2022 MOCA Related to Cerebral palsy, unspecified type Diltiazem 24 ER 180m g dailyMetoprololControlled Related to Hypertensive renal disease, stage 1 through stage 4 or unspecified chronic kidney disease 03/23/23 Creatinine/G FR 0.93/67[facility] 12/26/22-12/29/22Dx: MARIA ESTHER and UTI-Prior to admission [...] d/t leurkocytosis after surgery- [facility]- [...] left BPs stable Being fol lowed by [facility] resource development manager: Dr. Blackman and was switched to [facility] resource development manager. -Currently taking clonidine, cardizem, lisinopril, and [...] ordered for semiContinued to be follow by [facility] endocrinology primarily for diabetes. 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 Related to Autoimmune thyroiditis Dose increased per e ndocrine.75/25 insulin: 28 units in the AM 20 units in PMFollowed by [facility] endocrinology. She is on numerous medications r/t DM2 that are being managed by [facility] endo: repaglinide, tresiba, and mgobotietQ8D 8.5Recent hospitalization 12/2022 showed labs were ordered showing a GFR 14 and creat of 3.51. MARIA ESTHER was thought to be ATN in the setting of recent adverse reaction to zosyn. Ppt received IVF where creat improved to 1.5 upon discharge. Related to Type 2 diabetes mellitus with diabetic chronic kidney disease, unspecified CKD stage, unspecified whether plant engineering supervisor insulin use A1C 10/2022: 8.5Rece nt increase in insulinDecreased pulses. Shiny hairless guzman LE. -Continue statin Related to Type 2 diabetes mellitus with diabetic peripheral angiopathy without gangrene, unspecified whether plant engineering supervisor insulin use [facility] -12/29/22Dx: MARIA ESTHER and UTI-Prior to admission [...] 3a chronic kidney disease A1C 8.5Followed by [facility] endocrinology. She is on numerous medications r/t DM2 that are being managed by [facility] endo: repaglinide, tresiba, and trulicityMost recent visit [...] afib during her chemotherapy tx per brother/HCP. [facility] had assessed ppt on 05/17/22 where they were going to continue the eliquis and metoprolol until they further review ppts holter and ECHO from [facility]. May consider d/c'ing in the future. Today: RRR Related to Cardiac arrhythmia, unspecified cardiac arrhythmia type History of CP docume nted in preenrollment records. Currently not following neurologist or is on any medications. Brother reports she had CP since , she used to see somebody for developmental disability. She never required braces . Cognitive delay evident; wxsantg23/2022 MOCA Related to Cerebral palsy, unspecified type s/p surgical repaira bd incision CDI with staplesJP dremoved abd soft NT good bowel sounds (+)flauts/BMfollowup with surgeon in next 1-2 weeks no pain use pain PRNabd exam otherwise benign Related to Non-recurrent abdominal hernia without obstruction or gangrene, unspecified hernia type [facility] -12/29/22Dx: MARIA ESTHER and UTI-Prior to admission [...] never required braces . Cognitive delay evident; nsccype55/2021 MOCA 20/30 Related to Cerebral palsy, unspecified [...] ymetformin was added to med list at [facility] not on prior to hospital per PCP Recordsppt will followup with PCP after dcmed regimen can be reassessed at that time Related to Type 2 diabetes mellitus with diabetic chronic kidney disease, unspecified CKD stage, unspecified whether nursing home insulin use prograf ongoing cell cept held [...] kidney disease, unspecified CKD stage, unspecified whether plant engineering supervisor insulin use see 'liver transplanted' Related to [...] never required braces . Cognitive delay evident; nuobund88/2021 MOCA 20/30 Related to Cerebral palsy, unspecified type Left mastectomy in .[facility] General Surgery: DCIS of the left breast [...] and mycophenolate prescribed by Dr. Calderon of [facility] liver transplant clinic. Referral made for f/u. Related to Immunosuppressed status [facility] liver clinic ( GI), Dr. 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 She will have labs drawn [id number] at [facility]. 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 Blackman and was switched to [facility] resource development manager. -Currently taking clonidine, cardizem, lisinopril, and metoprolol Related to Hypertensive chronic kidney disease with stage 1 through stage 4 chronic kidney disease, or unspecified chronic kidney disease History of ventral a nd umbilical hernias.History of liver transplant at [facility], should follow up with them for evaluation of this hernia and any possible need for intervention now that it is clear she is not acutely obstructed. Related to Hernia [facility] liver clinic ( GI), Dr. 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 She will have labs drawn [id number] at [facility]. Plan: Follow up in 1 year. Related to Liver transplanted Presented to [facility] h less than 1 day of abdominal pain, nausea, and two episodes of emesis with radiographic concern for high-grade small bowel obstruction at the level of her ventral hernia. Given her history of liver transplant and the complexity of her ventral hernia, she was transferred to [facility] for further management. Upon arrival however, her abdominal pain had resolved, and on exam had no tenderness to palpation. She had an NGT that was placed at [place], allowed to decompress overnight. She continued to pass flatus. Her NGT was removed the following day. She subsequently had a bowel movement and was advanced to a regular diet. She tolerated solid food well without further pain. Related to History of small bowel obstruction History of ventral a nd umbilical hernias.History of liver transplant at [facility], should follow up with them for evaluation of this hernia and any possible need for intervention now that it is clear she is not acutely obstructed.Will f/u w/ [facility] Related to Hernia [facility] liver clinic ( GI), Dr. 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 She will have labs drawn [id number] at [facility]. Plan: Follow up in 1 year. Related to Liver transplanted BPs stableBeing foll owed by [facility] resource development manager: Dr. Blackman. May consider switching cardiologists (to [facility] provider). No recent visits since PEE.-Currently taking [...] and mycophenolate prescribed by Dr. Calderon of [facility] liver transplant clinic. Related to Immunosuppressed status Pt has been followin g general surgery Dr. Aaron [facility] s/p mastectomy. She has been following up every 6 months per office. Discussed w/ HCP she should keep this last appt and then she should not need to keep following up. Related to Hx of left mastectomy Currently takes mult ivitamin, tums, and vit D. 09/2021 PTH 161, calcium 8.7Ordered vit D, and calcium level. Related to Primary hyperparathyroidism 12/2021: GFR 49-Avoid nephrotoxic medications Related to Stage 3a chronic kidney disease [facility] liver clinic ( GI), Dr. 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 She will have labs drawn [id number] at [facility]. Plan: Follow up in 1 year. Related to Liver transplanted 10/06/21: A1C 7.2Fol lowed by [facility] endocrinology. Last seen he is on numerous medications r/t DM2 that are being managed by [facility] endo: repaglinide, tresiba, and trulicityMost recent visit recommended a freestyle ev for better BS monitoring. This has been ordered. Related to Current use of insulin Continued to be foll ow by [facility] endocrinology primarily for diabetes. 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 09/2021 TSH 2.06Ordered TSHContinue levothyroxine Related to Autoimmune thyroiditis 10/06/21: TC 178, HD L 33, LDL 102, TG 320Currently taking lipitor Related to Hyperlipidemia, unspecified hyperlipidemia type BPs stableBeing foll owed by [facility] resource development manager: Dr. Blackman. May consider switching cardiologists (to [facility] provider). No recent visits since PEE.-Currently taking clonidine, cardizem, and metoprolol Related to Hypertensive chronic kidney disease with stage 1 through stage 4 chronic kidney disease, or unspecified chronic kidney disease Pt has been followin g general surgery Dr. Aaron [facility] s/p mastectomy. She has been following up every 6 months per office. Discussed w/ HCP she should keep this last appt and then she should not need to keep following up. Related to Hx of left mastectomy Port in chest from oncology Rela markus to Port-A-Cath in place Per preenrollment re cords and family. [facility], [address]. Currently seeing Dr[address] Calderon.Dr. Calderon prescribes and refills: fish oil, mycophenolate mofetil, and tacrolimusHCP reports best way to contact is through his RN Pau- [phone] Related to Liver transplanted 10/06/21: A1C: 7.2 Related to Ty pe 2 diabetes mellitus without complication, unspecified whether nursing home insulin use Hx of liver transpla nt, currently taking tacrolimus and mycophenolate prescribed by Dr. Calderon of [facility] liver transplant clinic. Related to Immunosuppressed status Asymptomatic.Current ly taking allopurinol. Related to Gout, unspecified cause, unspecified chronicity, unspecified site Bone density exams p erformed every other year per HCP. Next scan due in 2021. Currently taking vitamin D.Vit D level ordered. 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 Follows [facility] every year for full body scan. Discussed keeping appt that has already been scheduled in 10/2021 and then will f/u as needed. Pt and HCP agreeable to this plan. Related to Personal history of other malignant neoplasm of skin Follows [facility] endocrin ology.Currently takes multivitamin, tums, and vit [...] tracheostomy Per preenrollment re cords and family. [facility], [address]. [address] Calderon.Dr. Calderon prescribes and refills: fish oil, mycophenolate mofetil, and tacrolimusHCP reports best way to contact is through his RN Pau- [phone] Related to Liver transplanted Left mastectomy in . Yearly mammograms. History of breast cancer scheduled for mammogram on 10/04/21-completed. Related to HX: breast cancer Left mastectomy perf ormed in 06/2021 per HCP and pt. Scar notable upon exam, no evidence of infection at surgical site. Related to Hx of left mastectomy Followed by [facility] endo crinology. Referral made to [facility] endocrinology. Currently on levothyroxine: prescirbed by [facility] professor of counseling. 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 Referral made to [facility] endocrinology. Currently on levothyroxine: prescirbed by [facility] professor of counseling. Related to Autoimmune thyroiditis She is currently [...] deformities. Pt checks feet regularly. Followed by [facility] endocrinology. Referral made to [facility] endocrinology. She is on numerous medications r/t DM2 that are being managed by [facility] endo: repaglinide, tresiba, and trulicity Related to Type 2 diabetes mellitus without complication, unspecified whether plant engineering supervisor insulin use Normal monofilliment exam. No loss of protection, no ulcers or deformities. Pt checks feet regularly. Followed by [facility] endocrinology. Referral made to [facility] endocrinology. She is on numerous medications r/t DM2 that are being managed by [facility] endo: repaglinide, tresiba, and trulicity Related to Current use of insulin BP stable today: 122 /74Being followed by [facility] resource development manager: Dr. Blackman. May consider switching cardiologists (to [facility] provider) after medication changes are completed. He [...]
[2025-08-25 14:56] LABS: MANUAL DIFF FLAG NO
[2025-08-25 15:31] LABS: Hematocrit 37.3 % (37.0-47.0); Hemoglobin 11.9 g/dl (12.0-16.0); Imm Gran Abs Auto 0.02 X10*3/uL (0.00-0.03); Imm Gran Pct Auto 0.2 % (0.0-0.4); Lymphocytes Absolute Auto 3.3 X10*3/uL (1.2-4.9); Mean Corpuscular HGB Conc 31.9 g/dl (31.0-35.0); Mean Corpuscular Hemoglobin 29.5 pg (27.0-33.0); Mean Corpuscular Volume 92.3 fL (80.0-98.0); NRBC Abs Auto 0.030 X10*3/uL (0.0-0.012); NRBC Pct Auto 0.3 /100WBC (0.0-0.2); Platelet Count 359 X10*3/uL (160-400); Red Blood Count 4.04 X10*6/uL (4.20-5.50); White Blood Count 8.9 X10*3/uL (4.8-10.8)
--- OUTSIDE RECORDS SUMMARY | 2025-08-25 15:33 | XMS_ITS | Encounter Summary ---
Author Organization [facility] Address [address] [place] [address] Care Team Providers Care Warper Creeler Name Role Phone SukhwinderMallorie shelton Stephie Primary Care Provider [phone] Encounter Details Date Type Department Care Team (Late st Contact Info) Description 08/29/2017 Transplant Conversio n Encounter [facility] Health Information Management [address] [place] [address] Provider, [facility] Social History Tobacco Use Types Packs/Day Years [...] Info) Description 03/02/2026 11:30 AM EDT Follow-Up [facility] Liver Transplant Services [address] [place] [address] Eveline Calderon MD [address] [place] [address] documented as of this encounter Visit Diagnoses Not on filedocumented in this encounter Additional Health Concerns Infection Onset Date Last Indicated Resolved Time COVID-19 - Confirmed infecti on Comment:[facility] 12/28/2020 12/28/2020 01/18/2021 3:47 PM EST R/O Respiratory Virus Infection 12/26/2022 3 12/26/2022 10:05 PM EST R/O Influenza 12/26/2022 12/26/2022 12/26/2022 10: 05 PM EST COVID-19 - Suspected infection 12/26/2022 12/26/2022 12/26/2022 10:05 PM EST VRE Enterococcus 12/26/2022 12/26/2022 documented as of this encounter Care Teams Warper Creeler Relationship Specialty Start Date End Date Mallorie Draper [facility] [place] [address] PCP - General Internal Medicine 01/21/24 documented as of this encounter
--- OUTSIDE RECORDS SUMMARY | 2025-08-25 15:34 | XMS_ITS | Patient Health Record ---
Author Organization [facility] Address [address] [place] [address] Care Team Providers Care Modeling Agent Name Role Phone Nahum Fernandez MD Primary Care Provider Dex Live Unavailable [phone] Reason For Referral No Information Medications Medication SIG (Take, Route, Frequency, Duration) Notes Start Date End Date Status Vitamin D (Ergocalciferol) 34303 UNIT TAKE 1 CAPSULE EVERY 2 WEEKS. [...] HCl 0.3 MG TAKE 1 TABLET BY [facility] EVERY DAY Oral for 90 [...] HCl 500 MG TAKE 1 TABLET BY [facility] TWICE A DAY WITH MEALS [...] Problem Status W/U Status Risk Notes Problem 328599064 Encounter for screening for malignant neoplasm of colon (Z12.11) Active confirmed Problem Screening for malignant neoplasm of rectum (741408107) Encounter for screening for malignant neoplasm of rectum (Z12.12) Active confirmed Problem 426070692 Long-term use of aspirin therapy (Z79.82) Active confirmed Problem 526804756 Hx of cirrhosis (Z87.19) Active confirmed Plan Of Treatment Future Test Test Name Order Date COLONOSCOPY 06/13/2016 Insurance Providers Payer Name Payer Address Payer Phone Subscriber Number Group Number Insured Name Patient Relationship to Insured Coverage Start Date Coverage End Date MEDICARE OF [place] [address] [place] [address] [id number] GILLES CHONG Self - patient is the insured MEDICAID OF [facility] [address] [place] [address] [id number] GILLES CHONG Self - patient is the insured Medical (General) History Medical History History ICD Code Screening colonoscopy in 03/05/2006-nega tive 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
--- OUTSIDE RECORDS SUMMARY | 2025-08-25 15:34 | XMS_ITS | Clinical Summary ---
Author Organization [facility] Address [address] [place] [address] Phone Care Team Providers Care Comb Tender Name Role Phone Os, Roxy STRIPE MARKER Primary Care Provider Unavailab le Allergies Active [...] 1 % cream Apply topically 1 Active metoprolol succinate XL (TOPROL XL) 25 MG 24 hr tablet Take 25 mg by mouth 1 (one) time each day 1 Active repaglinide (PRANDIN) 0.5 MG tablet Take 2 mg by mouth 1 (one) time each day 2 tabs am 1 tab pm 1 tab night 0 Active tamoxifen (NOLVADEX) 10 MG chemo tablet Take 2 tablets by mouth 1 (one) time each day 1 Active atorvastatin (LIPITOR) 20 MG tablet Take 40 mg by mouth 1 (one) time each day 2 Active acetaminophen (TYLENOL) 325 MG tablet Take by mouth every 8 hours 5 Active Lantus SoloStar 100 UNIT/ML injection Inject 37 units SQ once daily. 5 Active insulin glargine (Lantus) 100 UNIT/ML injection use one vial as directed from ekit now 5 Active metoprolol tartrate 25 MG tablet Take 25 mg by mouth in the morning and 25 mg in the evening. 5 Active Tacrolimus ER 0.5 MG capsule sustained-release 24 hr Take 0.5 mg by mouth 1 (one) time each day Active losartan (Cozaar) 50 MG tablet Take 1 tablet (50 mg total) by mouth 1 (one) time each day 30 tablet 11 5 06/11/20 26 Active Sodium Zirconium Cyclosilicate 5 g pack Take 10 g by mouth 1 (one) time each day 30 each 11 5 06/11/20 26 Active ferrous sulfate (Fe Tabs) 325 (65 Fe) MG EC tablet Take 1 tablet (325 mg total) by mouth 2 (two) times a day Do not crush, chew, or split. 180 tablet 3 5 06/11/20 26 Active Active Problems Problem Noted Date [...] Encounters Date Type Department Care Team Description 08/08/2025 Orders Only [facility] [address] [place] [address] Vicente Benson MD Stage 3a chronic kidney disease (HCC) 06/11/2025 3:00 PM EDT Office Visit [facility] [address] [place] [address] Vicente Benson MD Chronic kidney disease, stage 4 (severe) (HCC) (Primary Dx) 06/11/2025 Telephone [facility] [address] [place] [phone] Vicente Benson MD 05/28/2025 Orders Only [facility] [address] [place] [address] Vicente Benson MD Stage 3b chronic kidney disease (HCC); Liver transplant status (HCC); Other acute kidney failure (HCC); Other proteinuria 05/27/2025 Telephone [facility] [address] [phone] Vicente Benson MD from Last 3 Months Immunizations Immunization Administration [...] Sign Reading Time Taken Comments Blood Pressure 160/80 06/11/2025 3:01 PM EDT Pulse 97 06/11/2025 3:01 PM EDT Temperature - - Respiratory Rate - - Oxygen Saturation 96% 06/11/2025 3:01 PM EDT Inhaled Oxygen Concentration - - Weight 80.6 kg (177 lb 9.6 oz) 06/11/2025 3:01 P M EDT Height 160 cm (5' 3 ) 07/17/2024 2:40 PM EDT Body Mass Index 31.46 07/17/2024 2:40 PM EDT Plan of Treatment Upcoming Encounters Date Type Department Care Team (Late st Contact Info) Description 09/03/2025 3:00 PM EDT Office [facility] [address] [place] [address] Vicente Benson MD [address] [phone] 09/11/2025 Orders Only [facility] [address] [place] [address] Vicente Benson MD [address] [phone] Chronic kidney disease, stage 4 (severe) (HCC) Health Maintenance Due Date Last Done Comments Breast Cancer Screening 1955 Colorectal Cancer Screening: Annual FOBT 2003 Colorectal Cancer Screening: Colonoscopy 2003 Colorectal Cancer Screening: Sigmoidoscopy 2003 Diabetes: Hemoglobin A1C 01/30/2022 05/10/2017 Diabetes: Ophthalmology Exam 01/30/2022 Diabetes: Pedal Pulse Checked 01/30/2022 Diabetes: Sensory Foot Exam 01/30/2022 Diabetes: Visual Foot Exam 01/30/2022 Influenza Vaccine (#1) 2025 , 08/19/2024, 09/02/2020, Additional history exists Pneumococcal Vaccine: 50+ Years Completed 11/25/2019, 02/14/2016, 02/14/2016, Additional history exists Pneumococcal Vaccine: Peds (0 to 5 Years) and At-Risk Patients (6 to 49 Years) Discontinued 11/25/2019, 02/14/2016, 02/14/2016, Additional history exists Hepatitis B Vaccine Aged Out No longe r eligible based on patient's age to complete this topic [place] [address]/[facility] ([id number]) [employer] Medicare Care Teams Comb Tender Relationship Specialty Start Date End Date Os, DAMON Ramsey [address] [place] [address] PCP - General Geriatric Medicine 07/17/24
--- OUTSIDE RECORDS SUMMARY | 2025-08-25 15:34 | XMS_ITS | Clinical Summary ---
Author Organization [facility] Address [address] [place] [address] Care Team Providers Care Legal Adviser Name Role Phone Mallorie Draper Primary Care Provider [phone] Allergies Active Allergy Reactions Criticality Noted Date [...] a day. 09/12/20 Active FreeStyle Ev 2 [facility] 07/13/20 Active calcium carbonate 400 mg calcium (1,000 mg) tablet,chewable Chew and swallow 1,000 mg by mouth. 05/17/20 Active OneTouch Verio Flex meter [facility] 01/25/20 Active omega-3 acid ethyl esters (LOVAZA) [...] 0.5 mg capsuleIndicati ons:Liver replaced by transplant Take 1 capsule (0.5 mg total) by mouth once a day. 56 capsule 11 03/06/20 25 Active omega 1-wrw-rvb-fish oil 300-1,000 mg capsule capsule TAKE (1) CAPSULE BY MOUTH DAILY 28 capsule 08/12/20 25 Active mycophenolate mofetil (CELLCEPT) 250 mg capsuleIndicati ons:Liver replaced by transplant TAKE (1) CAPSULE BY MOUTH TWICE DAILY. 60 capsule 08/12/20 25 Active omega 5-ttu-kua-fish oil 300-1,000 mg capsule capsule TAKE (1) CAPSULE BY MOUTH DAILY 28 capsule 07/17/20 25 025 Discontinued mycophenolate mofetil (CELLCEPT) 250 mg capsuleIndicati ons:Liver replaced by transplant TAKE (1) CAPSULE BY MOUTH TWICE DAILY. 60 capsule 07/17/20 25 025 Discontinued Active Problems Problem Noted [...] nasal swab MRSA PCR. -ICU glycemic protocol. -[employer] evaluation, if ok to take po diet [...] Encounters Date Type Department Care Team Description 08/11/2025 Refill [facility] [address] [place] [id number] Eveline Calderon MD Liver replaced by transplant (HCC) 07/16/2025 Refill [facility] [address] [place] [address] [phone] Eveline Calderon MD Liver replaced by transplant (HCC) 06/19/2025 Refill [facility] [address] [place] [phone] Direct Marketing Representative: Luci Patel MD Liver replaced by transplant (HCC) 05/27/2025 Refill [facility] [address] [place] [address] [phone] Eveline Calderon MD Liver replaced by transplant (HCC) from Last 3 Months Immunizations Immunization Administration Dates Next Due Covid-19, Pfizer, mRNA, Christian valent, PF 30 mcg/0.3 mL dose (for ages 12 and older) 02/22/2021 Diphtheria and Tetanus Toxoi ds, Adsorbed for Pediatric Use 03/24/2019 INFLUENZA, SPLIT VIRUS, TRIVALENT, PF ,10/30/2017,10/12/2016,09/20,09/21/2006,09/26/2004 Influenza, High Dose Seasona l, Preservative Free (FLUZONE HIGH-DOSE) 09/02/2019 Influenza, Injectable, Quadr ivalent Preservative Free [...] 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 Not on file Not on fi le Not on file Last Filed Vital Signs Vital Sign Reading Time Taken Comments Blood Pressure 134/75 03/03/2025 10:35 AM EDT Pulse 85 03/03/2025 10:35 AM EDT Temperature 36.8 C (98.2 F) 03/03/2025 10:35 AM EDT Respiratory Rate 20 03/03/2025 10:3 [...] EDT Follow-Up [facility] [address] [place] [phone] Eveline Calderon MD [address] [place] [phone] Health Maintenance Due Date Last Done Comments [...] 12/29/2023 12/29/2022, 12/2022, 12/27/2022, Additional history exists Alcohol/Substance Use Screening 11/26/2024 Depression Screening and Follow-Up 11/26/2024 Health Care Proxy Review 11/26/2024 Social Drivers of Health Annual Screening 11/26/2024 Basic Metabolic Panel 07/03/2025 03/03/2025 , 03/06/2024, 04/24/2023, Additional history exists COVID-19 Vaccine ( season) 2025 03/23/2022, 10/06/2021, 02/23/2021, Additional history exists Influenza Vaccine (#1) 2025 , 09/06/2023, 08/29/2022, Additional history exists Hemoglobin 03/03/2026 03/03/2025, 0411/2023, 09/19/2023, Additional history exists Colon Cancer Screening 10/09/2026 Colonoscopy 10/09/2026 10/09/2016 DTaP,Tdap,and Td Vaccines (3 - Td or Tdap) 03/24/2029 03/24/2019, 03/24/2019 Mammogram Discontinued 03/06/2017, 04/0 04/2017, 02/24/2016, Additional history exists Pneumococcal Vaccine: 50+ Years Completed 11/25/2019, 02/14/2016, 02/14/2016, Additional history exists Zoster Vaccines Completed 03/10/2024, 10/08/2023 Hepatitis B Vaccines Aged Out No long er eligible based on patient's age to complete this topic Medical Devices Implanted Type Area Deputy Clerk Device Identifier Shelf Expiration Date Model / Serial / Lot Mesh Ventral Hernia Soft Square [id number] - [id number] Implanted:Qty: 1 on 11/29/2022 by Pita Clark MD MPH at [facility] Mesh N/A: Abdomen [employer] 05/23/2027 [id number] / / [id number] Description:Verified by RK, NC and JM. Procedures * Due to [place] EpiVax law, this organization might not be sharing negative HIV tests. Procedure Name Priority Date/Time Associated Diagnosis Comments CBC AUTO DIFFERENTIAL Routine 03/03/2025 11:05 AM EDT Liver replaced by transplant (HCC) Immunosuppressed status (HCC) COMPREHENSIVE METABOLIC PANEL Routine 03/03/2025 11:05 AM [...] Health Maintenance Results * Due to [place] EpiVax law, this organization might not be sharing negative HIV tests. * (ABNORMAL) CBC Auto Differential (03/03/2025 11:05 AM EDT) WBC 8.9 3.8 - 10.8 10*3/uL 03/03/2025 4:22 PM EDT [facility] RBC 4.18 3.80 - 5.10 10*6/uL 03/03/2025 4:22 PM EDT [facility] Hemoglobin 12.4 11.7 - 15.5 g/dL 03/03/2025 4:22 PM EDT [facility] Hematocrit 38.4 35.0 - 45.0 % 03/03/2025 4:22 PM EDT [facility] MCV 91.9 80.0 - 100.0 fL 03/03/2025 4:22 PM EDT [facility] MCH 29.7 27.0 - 33.0 pg 03/03/2025 4:22 PM EDT [facility] MCHC 32.3 32.0 - 36.0 g/dL 03/03/2025 4:22 PM EDT [facility] RDW 15.0 11.0 - 15.0 % 03/03/2025 4:22 PM EDT [facility] Platelets 323 140 - 400 10*3/uL 03/03/2025 4:22 PM EDT [facility] MPV 11.1 7.5 - 12.5 fL 03/03/2025 4:22 PM EDT [facility] Neutrophil % 50.4 % 03/03/2025 4:22 PM EDT [facility] Immature Grans % 0.3 0.0 - 0.9 % 03/03/2025 4:22 PM EDT [facility] Lymphocyte % 36.5 % 03/03/2025 4:22 PM EDT [facility] Monocyte % 9.0 % 03/03/2025 4:22 PM EDT [facility] [employer] [facility] Eosinophil % 2.9 % 03/03/2025 4:22 PM EDT [employer] Basophil % 0.9 % 03/03/2025 4:22 PM EDT [facility] Neutrophil # 4.49 1.50 - 7.80 10*3/uL 03/03/2025 4:22 PM EDT [facility] Immature Grans # 0.03 <=0.03 10*3/uL 03/03/2025 4:22 PM EDT [facility] Lymphocyte # 3.30 0.85 - 3.90 10*3/uL 03/03/2025 4:22 PM EDT [facility] Monocyte # 0.80 0.20 - 0.95 10*3/uL 03/03/2025 4:22 PM EDT [facility] Eosinophil # 0.30 0.02 - 0.50 10*3/uL 03/03/2025 4:22 PM EDT [facility] Basophil # 0.10 0.00 - 0.20 10*3/uL 03/03/2025 4:22 PM EDT [facility] nRBC % 0.4 /100 WBCs 03/03/2025 4:22 PM EDT [facility] nRBC # 0.04(H) <0.01 10*3/uL 03/03/2025 4:22 PM EDT [facility] Blood Structure of peripheral vein / Unknown Venipuncture / Unknown 03/03/2025 11:05 AM EDT 03/03/2025 11:05 AM EDT us Eveline Calderon MD LAB BLOOD ORDERABLES Final Resul t [facility] [address] [place] [address], [place] * (ABNORMAL) Comprehensive Metabolic Panel (03/03/2025 11:05 AM EDT) NA 139 135 - 145 mmol/L 03/03/2025 12:32 PM EDT [facility] K 5.5(H) 3.5 - 5.3 mmol/L 03/03/2025 12:32 PM EDT [facility] Cl 107 98 - 107 mmol/L 03/03/2025 12:32 PM EDT [facility] CO2 20(L) 22 - 32 mmol/L 03/03/2025 12:32 PM EDT [facility] Anion Gap 12 5 - 15 [facility] 03/03/2025 12:32 PM EDT [facility] Glucose 278(H) 65 - 99 mg/dL 03/03/2025 12:32 PM EDT [facility] Creatinine 2.19(H) 0.50 - 1.20 mg/dL 03/03/2025 12:32 PM EDT [facility] Calcium 9.9 8.6 - 10.5 mg/dL 03/03/2025 12:32 PM EDT [facility] Total Protein 6.9 6.0 - 8.0 g/dL 03/03/2025 12:32 PM EDT [facility] Albumin 3.5 3.5 - 5.2 g/dL 03/03/2025 12:32 PM EDT [facility] Bilirubin, Total 0.3 0.2 - 1.2 mg/dL 03/03/2025 12:32 PM EDT [facility] Alkaline Phosphatase 111 35 - 129 U/L 03/03/2025 12:32 PM EDT [facility] AST 20 10 - 40 U/L 03/03/2025 12:32 PM EDT [facility] ALT 15 10 - 40 U/L 03/03/2025 12:32 PM EDT [facility] BUN 57(H) 7 - 23 mg/dL 03/03/2025 12:32 PM EDT [facility] eGFR 24(L) >=60 mL/min/1 .73m2 [facility] 03/03/2025 12:32 PM EDT [facility] Comment:The estimated glomer ular [...] g/dL [facility] 03/03/2025 12:32 PM EDT [facility] A/G Ratio 1.0(L) 1.5 - 3.0 [facility] 03/03/2025 12:32 PM EDT [facility] Blood Structure of peripheral vein / Unknown Venipuncture / Unknown 03/03/2025 11:05 AM EDT 03/03/2025 11:05 AM EDT us Eveline Calderon MD LAB BLOOD ORDERABLES Final Resul t Performing Organization Address City/[facility]/ZIP Co de Phone Number [facility] [address] [place] [id number], [place] * (ABNORMAL) Phosphorus (12/29/2022 5:16 AM EST) Phosphorus 2.2(L) 2.5 - 4.5 mg/dL 12/29/2022 6:12 AM EST [facility] Blood Structure of peripheral vein / Unknown Venipuncture / Unknown 12/29/2022 5:16 AM EST 12/29/2022 5:38 AM EST us Maycol Flores MD LAB BLOOD ORDERABLES Final Resu lt Performing Organization Address City/[facility]/ZIP Co de Phone Number [facility] [address] [place] [address], [place] * (ABNORMAL) Hemoglobin A1c (05/10/2017 4:19 [...] MD LAB BLOOD ORDERABLES Final Resul t [address], [place] [address], * Vitamin D, 25-Hydroxy, Total, Immunoassay (07/04/2012 11:33 AM EDT) Vitamin D 25 Oh 41 30 - 100 ng/mL [facility] Comment: Vitamin D Status 25-OH Vitamin D Deficiency: <10 ng/mL Insufficiency: 10-30 ng/mL Sufficiency: 30-100 ng/mL Toxicity: >100 ng/mL 07/04/2012 11:3 3 AM EDT 07/04/2012 12:01 PM EDT Ricardo Mejia MD LAB BLOOD ORDERABLES Final Resul t [facility] [address] [place] [address], * PTH, Intact (without Calcium) (07/04/2012 11:33 AM EDT) Parathyroid Intact 60 12 - 65 pg/mL [facility] 07/04/2012 11:3 3 AM EDT 07/04/2012 12:01 PM EDT us Ricardo Mejia MD LAB BLOOD ORDERABLES Final Resul t 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
--- OUTSIDE RECORDS SUMMARY | 2025-08-25 15:34 | XMS_ITS ---
Author Organization [facility] Address [address] [place] [address] Care Team Providers Care Product Development Worker Name Role Phone Mallorie Draper Primary Care Provider [phone] Transplant Episode Liver Recipient [facility] ([place], [place]) - [facility], [facility] Organ Received: Liver Transplanted on 09/07/2001 Marked as Active Follow-up on 09/07/2001 Liver CoordinatorMonique Capps RN Phone: N/A Fax: N/A Email: N/A Kiana Organ Diagnosis Organ Primary Contributory Liver Cirrhosis: [...] N/A N/A N/A Dex Charlton Referring Physician [phone] N/A Eveline Calderon MD Rand Cementer [phone] [email or web address] Events Post-Transplant Pre-Transplant Admitted: 08/22/2001 Referred: 12/17/2000 Transplanted: 09/07/2001 Evaluation began: 1 Discharged: 12/20/2001 Committee: 07/02/2001 Center waitlisted: 1
[2025-08-25 16:01] LABS: Parathyroid Hormone Intact 95.0 pg/mL (8.7-77.1)
[2025-08-25 16:12] LABS: Anion Gap 12 (12-20); Blood Urea Nitrogen 51 mg/dL (9-16); Calcium 9.8 mg/dL (8.4-10.2); Carbon Dioxide 27 mmol/L (22-29); Chloride 105 mmol/L (96-108); Estimated Glomerular Filt Rate 20; Iron 94 mcg/dL (30-160); Magnesium 1.8 mg/dL (1.6-2.6); Percent Iron Saturation 32 % (15-50); Potassium 5.4 mmol/L (3.3-5.1); Sodium 139 mmol/L (135-145); Total Iron Binding Capacity 291 mcg/dL (228-428); Unsaturated Iron Binding 197 ug/dL; Uric Acid 4.3 mg/dL (2.4-5.7)
[2025-08-25 16:27] LABS: Ferritin 89 ng/mL (10-250)
--- OUTSIDE RECORDS SUMMARY | 2025-09-11 20:00 | XMS_ITS | Clinical Summary ---
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 Name Role Phone DEANNA PENA, MARTHA Unavailable Unavailable CHADWICK MAGAÑA, FABIÁN Unavailable Unavailable Payers Payer Name Policy Type Policy Number Effective Date Expira tion Date [facility] ELDER CARE PLAN - [place] [id number] MEDICAID [facility] [id number] MEDICARE - [facility]/[place] - [place] [id number] Problems Condition Name Condition Details Condition Category [...] 05-07 00:00: 00 05-28 23:59 :00 No [id number] Per instruc tions 2 TIMES DAILY Per instructio ns 2 TIMES DAILY (route: subcutaneo us) Med Classific ation: Endocrine Lantus Solostar U-100 Insulin 100 unit/mL (3 mL) subcutaneou s pen 05-07 00:00: 05-21 00:00 :00 No [id number] Per instruc tions Per instructio ns (route: subcutaneo us) Med Classific ation: Endocrine repaglinide 1 mg tablet 05-07 00:00: 00 Yes [id number] 1 mg 3 TIMES DAILY 1 mg 3 TIMES DAILY (route: oral) Med Classific ation: Endocrine allopurinol 300 mg tablet 04-22 00:00: 00 Yes [id number] 300 mg DAILY 300 mg DAILY (route: oral) Med Classific ation: Gout and Hyperuric emia Therapy anastrozole 1 mg tablet 04-22 00:00: 00 Yes [id number] 1 mg DAILY 1 mg DAVID Y (route: oral) Med Classific ation: Antineopl astics atorvastati n 40 mg tablet 04-22 00:00: 00 Yes [id number] 40 mg DAILY 40 mg DAILY (route: oral) Med Classific ation: Cardiovas cular Therapy Agents Calcium Antacid 200 mg (as calcium carbonate 500 mg) chewable tablet 04-22 00:00: 00 Yes [id number] 2 tablet DAILY 2 tablet DAILY (route: oral) Med Classific ation: Gastroint estinal Therapy Agents diltiazem CD 180 mg capsule,ext ended release 24 hr 04-22 00:00: 00 Yes [id number] 180 mg DAILY 180 mg DAILY (route: oral) Med Classific ation: Cardiovas cular Therapy Agents Eliquis 5 mg tablet 04-22 00:00: 00 Yes [id number] 5 mg 2 TIMES DAILY 5 mg 2 TIMES DAILY (route: oral) Med Classific ation: Hematolog ical Agents levothyroxi ne 88 mcg tablet 04-22 00:00: 00 Yes [id number] 88 mcg DAILY 88 mcg DAILY (route: oral) Med Classific ation: Endocrine metoprolol tartrate 25 mg tablet 04-22 00:00: 00 Yes [id number] 25 mg DAILY 25 mg DAILY (route: oral) Med Classific ation: Cardiovas cular Therapy Agents mycophenola te mofetil 250 mg capsule 04-22 00:00: 00 Yes [id number] 250 mg 2 TIMES DAILY 250 mg 2 TIMES DAILY (route: oral) Med Classific ation: Immunosup pressive Agents tacrolimus 0.5 mg capsule, immediate-r elease 04-22 00:00: 00 Yes [id number] 0.5 mg 2 TIMES DAILY 0.5 mg 2 TIMES DAILY (route: oral) Med Classific ation: Immunosup pressive Agents ergocalcife rol (vitamin D2) 1,250 mcg (50,000 unit) capsule 04-22 00:00: 00 05-21 00:00 :00 No [id number] Per instruc tions Per instructio ns (route: oral) Med Classific ation: Electroly te Balance-N utritiona l Products repaglinide 0.5 mg tablet 05-21 00:00: 00 Yes [id number] 0.5 mg 2 TIMES DAILY 0.5 mg 2 TIMES DAILY (route: oral) Med Classific ation: Endocrine Trulicity 3 mg/0.5 mL subcutaneou s pen injector 05-21 00:00: 00 05-28 23:59 :00 No [id number] 3 mg WEEKLY 3 mg WEEKLY (route: subcutaneo us) Med Classific ation: Endocrine Vitamin D3 25 mcg (1,000 unit) capsule 05-21 00:00: 00 Yes [id number] 25 mcg DAILY 25 mcg DAILY (route: oral) Med Classific ation: Electroly te Balance-N utritiona l Products Lantus Solostar U-100 Insulin 100 unit/mL (3 mL) subcutaneou s pen 05-29 00:00: 00 01-14 23:59 :00 No [id number] 34 unit DAILY 34 unit DAILY (route: subcutaneo us) Med Classific ation: Endocrine Trulicity 4.5 mg/0.5 mL subcutaneou s pen injector 05-29 00:00: 00 Yes [id number] 4.5 mg WEEKLY 4.5 mg WEEKLY (route: subcutaneo us) Med Classific ation: Endocrine Lantus Solostar U-100 Insulin 100 unit/mL (3 mL) subcutaneou s pen 01-14 00:00: 00 Yes [id number] 37 unit DAILY 37 unit DAILY (route: [...] AWARENESS FOR SAFETY AND WILL NOTIFY CLINICAL SHACTOR AND PHYSICIAN/PROVIDER WITH ANY CHANGE IN CONDITION. [code = SKILLED NURSE WILL MAINTAIN SITUATIONAL AWARENESS FOR SAFETY AND WILL NOTIFY CLINICAL SHACTOR AND PHYSICIAN/PROVIDER WITH ANY CHANGE IN CONDITION.] [...] CARE WILL BE ESTABLISHED THAT MEETS PATIENT'S GROUP HOME NEEDS AND INCLUDES PATIENT GOAL FOR HOME [...] Date: 2024 by LISA STRONG LPN]:</paragraph><paragraph>ALERT AND ORIENTED X3</paragraph> <paragraph>[Visit Date: 2024 by LISA STRONG LPN]:</paragraph><paragraph>ALERT AND ORIENTED X3 NO ISSUES</paragraph> <paragraph>[Visit Date: 2024 by FABIÁN GENAO RN]:</paragraph><paragraph>PT [...] HAVE SUPPORTIVE FAMILY WHO LIVE NEARBY AND [facility] STAFF A CAREGIVER AVAILABLE. PATIENT DOES NOT UTILIZE DME. PATIENT RESOURCES INCLUDE REGULAR COMPANIONS FROM THE [place] PROGRAM PATIENT REQUIRES GROUP HOME VISITS DAILY FOR FOR INSULIN ADMINISTRATION, MEDICATION EDUCATION.</paragraph><paragraph>PATIENT REMAINS HOMEBOUND DUE TO TAXING EFFORT TO LEAVE HOME SAFELY WITHOUT ASSISTANCE AND WEAKNESS.</paragraph> Encounters Start Date/Time End Date/Time Encounter Type Admission Type Attending Clinicians Care Facility Care Department Encounter ID Discharge Date Discharge Status Discharge Condition Discharge Reason Percent Goals Met 2025-07-15 00:00:00 2025-09-12 00:00:00 Outpatient FABIÁN JOY [facility] [place] [id number] 0.00
== END 2025-08-25 14:10 | disposition home or self-care (01) ==
LOC: HO.LAB 14:09
PROVIDERS: Visit Provider Internal Medicine
DX: N18.4 Chronic kidney disease, stage 4 (severe) (principal); Z13.1 Encounter for screening for diabetes mellitus
CPT/HCPCS: 36415; 80051; 82310; 82565; 82728; 83036; 83540; 83735; 83970; 84100; 84520; 84550; 85025

== ENCOUNTER 2025-08-27 14:19 | Outpatient (REF) | payer OTHER, SELFPAY ==
--- OUTSIDE RECORDS SUMMARY | 2025-08-27 08:10 | XMS_ITS | Continuity of Care Document ---
Author Organization [facility] Address 1 [facility] [address] [place] [address] Phone Care Team Providers Care Syrup Mixer Assistant Name Role Phone Pravin PENA, Aqib Unavailable [...] MOUTH DAILY. - Active FreeStyle Ev 3 [place] Use for continuous glucose monitoring. - Active Send to Summ it. Upgrading from Ev 2 to 3+. FreeStyle Ev 3 Plus Sensor device Use for continuous glucose monitoring. Change every 14 days. - Active Send first order to [employer]. Upgrading from Ev 2 to 3+. Lokelma [...] BG checks - Active Prescr ibed by [facility] endo mycophenolate mofetil 250 mg capsule Take [...] w/ BG check - Active Prescribed by [facility] [place] endo Futuro Anti-Embolism [...] use when checking BG levels - Active Procedures Procedure Date IMMUNIZATION ADMIN IIV NO PRSV INCREASED AG IM Advance Directives Directive Yes / No Effective Date File Name No Information Encounters Encounter Description Practice Location Reason(s) For Visit Diagnoses Date Provider [facility], 1 [facility], [place], [place], [id number], tel:[phone] [place] No Information Aug- 5 Pravin Aqib. [address] [place], [id number], [place]. tel:[phone] [facility], 1 [facility], [place], [place], [id number], [place] tel:[phone] [place] No Information 5 Tarun Steinberg. [address], [place], [id number], [place]. tel:[phone] [facility], 1 [facility], [place], [place], [id number], tel:[phone] [place] Semi-Annual (chief complaint) Encounter for general adult medical examination without abnormal findingsSecondary hypercoagulable stateMixed hyperlipidemiaType 2 diabetes mellitus with hyperglycemiaLong term [...] female breastImmunodeficiency , unspecifiedLiver transplant statusCerebral palsy, unspecifiedUnspecified atrial fibrillation 5 Pravin Aqib. [address], [address], [place]. tel:[phone] [facility], 1 [facility], [place], [place], [address], [place] tel:[phone] [place] No Information Sep-0 9-202 5 Pravin Aqib. [address] [place], [place], [address], [place]. tel:[phone] [facility], [address] [facility], [place], [place], [id number], [place] tel:[phone] [place] Encounter for rehabilitation evaluation Sep-0 9-202 5 Theroux Usha. [address], [place], [address]. tel:[phone] [facility], 1 [facility]Ste [facility], [place], [place], [id number], [place] tel:[phone] [place] [address] No Information Sep-0 3-202 5 Pravin Aqib. [address] [place], [place], [address], [place]. tel:[phone] [facility], 1 [facility] StSte [facility], [place], [place], [address], [place] tel:[phone] [place] No Information Aug-2 0-202 5 Pravin Aqib. [address] [place], [place], [address], [place]. tel:[phone] [facility], 1 [facility] StSte [facility], [place], [place], [address], [place] tel:[phone] [place] No Information Aug-0 4202 5 Pravin Aqib. [address] [place], [place], [address], [place]. tel:[phone] [facility], [address] [facility] [address], [place], [place], [address], [place] tel:[phone] [place] No Information Saroj-2 8 5 Pravin Aqib. [address] [place], [place], [address], [place]. tel:[phone] [facility], 1 [facility] [address], [place], [place], [address], [place] tel:[phone] [place] Facial skin lesion Jose Elias-2 5 Pravin Aqib. [address] [place], [place], [address], [place]. tel:[phone] [facility], [address] [facility] [address] [address], [place], [place], [address], [place] tel:[phone] [place] Type 2 diabetes mellitus with diabetic chronic kidney disease Jose Elias-2 5 Pravin Aqib. [address], [place], [place], [address], [place]. tel:[phone] [facility], [facility] [address] [address], [place], [place], [address], [place] tel:[phone] [place] History of basal sheryl l carcinoma (BCC) excisionPersonal history of other malignant neoplasm of skin Jose Elias- 5 Pravin Aqib. [address], [place], [place], [address], [place]. tel:[phone] [facility], 1 [facility] [address], [place], [place], [address], [place] tel:[phone] [place] Acute Visit (chief complaint) Cellulitis of left hand Jose Elias-0 5 Pravin Aqib. [address], [place], [place], [address], [place]. tel:[phone] [facility], [address], [place], [place], [address], [place] tel:[phone] [place] No Information 5 Tarun Steinberg. 101 [facility] [address], [place], [place], [address], [place]. tel:[phone] [facility], [address], [place], [place], [address], [place] tel:[phone] [place] Encounter for rehabilitation evaluation 0 5 Gerald Yeh. [address] [place], [place], [address]. tel:[phone] [facility], [address], [id number], [place] tel:[phone] [place] No Information Apr- 5 Pravin Aqib. [address] [place], [place], [address], [place]. tel:[phone] [facility], [address] [address], [place], [place], [address], [place] tel:[phone] [place] Encounter for nutritional assessmentDiabetic nutritional counseling completed Feb- 5 Normile Karen. [address], [place], [place], [address], [place]. tel:[phone] [facility], [address], [id number], [place] tel:[phone] [place] Semi-Annual (chief complaint) Encounter for general adult [...] Apr-1 0- 5 Pravin Aqib. [address] [place], [place], [address], [place]. tel:[phone] [facility], [address], [id number], [place] tel:[phone] [place] Acute Visit (chief complaint) Onychogryphosis Apr-0 5 Pravin Aqib. [address] [place], [place], [address], [place]. tel:[phone] [facility], [address] [facility], [place], [place], [address], [place] tel:[phone] [place] Disorder of the skin and subcutaneous tissue, unspecified 5 Tarun Steinberg. [address], [place], [place], [address], [place]. tel:[phone] [facility], [address] [facility] [address], [place], [place], [address], [place] tel:[phone] [place] Acute Visit (chief complaint) Cough, unspecified type 5 Pravin Aqib. [address], [place], [place], [address], [place]. tel:[phone] [facility], 1 [facility] StSte [facility], [place], [place], [address], [place] tel:[phone] [place] Follow-up (chief complaint) No Information 5 Pravin Aqib. [address] [place], [place], [address], [place]. tel:[phone] [facility], 1 [facility]Ste [facility], [place], [place], [address], [place] tel:[phone] [place] Encounter for rehabilitation evaluation 4 Gerald Yeh. [address] [place], [place], [address]. tel:[phone] [facility], 1 [facility]Ste [facility], [place], [place], [address], [place] tel:[phone] [place] Acute Visit (chief complaint) Viral URI with cough 4 Pravin Aqib. [address], [place], [place], [address], [place]. tel:[phone] [facility], [address], [place], [place], [address], [place] tel:[phone] [place] Semi-Annual (chief complaint) Disorder of the skin [...] fibrillation, unspecified type 4 Pravin Aqib. 101 [facility] [address], [place], [place], [address], [place]. tel:[phone] [facility], 1 [facility] StSte [facility], [place], [place], [address], [place] tel:[phone] [place] Encounter for nutritional assessment 4 Normile Karen. [address] [place], [place], [address], [place]. tel:[phone] [facility], [address] [facility] [address], [place], [place], [address], [place] tel:[phone] [place] Encounter for rehabilitation evaluation 4 Gerald Yeh. 101 [facility] [address] [place], [place], [address]. tel:[phone] [facility], 1 [facility] [address], [place], [place], [address], [place] tel:[phone] [place] Encounter for rehabilitation evaluation 4 Josh Hayes. [address], [place], [place], [address], [place]. tel:[phone] [facility], [address], [place], [place], [address], [place] tel:[phone] [place] Acute Visit (chief complaint) HypomagnesemiaFacial skin lesion 4 Pravin Aqib. [address] [place], [place], [address], [place]. tel:[phone] [facility], [address], [place], [place], [address], [place] tel:[phone] [place] No Information 4 Pravin Aqib. [address] [place], [place], [address], [place]. tel:[phone] [facility], [address], [place], [place], [address], [place] tel:[phone] [place] Follow-up (chief complaint) Hypomagnesemia Jul- 4 Aileen Gregg. [address] [place], [place], [address], [place]. tel:[phone] [facility], [address], [place], [place], [address], [place] tel:[phone] [place] Follow-up (chief complaint) Acquired absence of left breast and nippleLymphedema, not elsewhere classified Jul-0 4 Aileen Castellanosecca. [address], [place], [place], [address], [place]. tel:[phone] [facility], [address], [place], [place], [address], [place] tel:[phone] [place] medication (chief complaint) Hypomagnesemia Jun-0 4 Elvia Haddada. [address] [place], [place], [address], [place]. tel:[phone] [facility], [address], [place], [place], [address], [place] tel:[phone] [place] No Information 4 Elvia Antoine. [address] [place], [place], [address], [place]. tel:[phone] [facility], [address], [place], [place], [address], [place] tel:[phone] [place] Type 2 diabetes mellitus with hyperglycemia, with long-term current use of insulinLong term (current) use of insulin 4 Pitsiladis Meli. [address], [place], [address], [place]. tel:[phone] [facility], 1 [facility] [address], [place], [place], [address], [place] tel:[phone] [place] Encounter for rehabilitation evaluation 4 Josh Hayes. 101 [facility] [place], [address], [place]. tel:[phone] [facility], [facility] [address], [place], [place], [address], [place] tel:[phone] [place] Encounter for nutritional assessmentOther obesity 4 Normile Karen. [address] [place], [place], [address], [place]. tel:[phone] [facility], [address], [place], [place], [address], [place] tel:[phone] [place] No Information 4 Os Roxy. [address], [place], [address], [place]. tel:[phone] [facility], [address] [facility] [address], [place], [place], [address], [place] tel:[phone] [place] Semi-Annual (chief complaint) Encounter for general adult medical examination without abnormal findingsCardiac arrhythmia, unspecified cardiac arrhythmia typeHyperlipidemia, unspecified hyperlipidemia typeType 2 diabetes mellitus with diabetic chronic kidney disease, unspecified CKD stage, unspecified whether prison insulin useCurrent use of insulinType 2 diabetes mellitus with diabetic peripheral angiopathy without gangrene, unspecified whether truck terminal manager insulin useType 2 diabetes mellitus with diabetic polyneuropathy, unspecified whether truck terminal manager insulin use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Autoimmune thyroiditisPrimary hyperparathyroidismLiv er transplantedHypertensi ve chronic kidney disease with stage 1 through stage 4 chronic kidney disease, or unspecified chronic kidney diseaseStage 3a chronic kidney diseaseOsteopenia, unspecified locationCerebral palsy, unspecified typeEdema, unspecified typeInvasive ductal carcinoma of breast, female, leftInfiltrating ductal carcinoma of breast, rightImmunosuppressed status 4 Os Roxy. [address] [facility] [place], [address], [place]. tel:[phone] [facility], [address], [address], tel:[phone] [place] No Information Mar-2 4 Os Roxy. [address], [place], [address], [place]. tel:[phone] [facility], 1 [facility], [place], [place], [address], tel:[phone] [place] Follow-up (chief complaint) Cerebral palsy, unspecified typeMalignant neoplasm of right female breast, unspecified estrogen receptor status, unspecified site of breast Mar-2 4 Os Roxy. [address] [place], [place], [address], [place]. tel:[phone] [facility], [address] [facility] [address] [place] [address], [address], tel:[phone] [place] Hypertension, unspecified type Mar-2 0 4 Os Roxy. [address] [place], [place], [address], [place]. tel:[phone] [facility], 1 [facility] [address], [place], [place], [address], [place] tel:[phone] [place] SNF Admit (chief complaint) Type 2 diabetes mellitus with diabetic chronic kidney disease, unspecified CKD stage, unspecified whether truck terminal manager insulin useStage 3a chronic kidney diseaseEdema, unspecified typeImmunosuppressed statusHypertension, unspecified typeMalignant neoplasm of right female breast, unspecified estrogen receptor status, unspecified site of breast 4 Os Roxy. 101 [facility] [place], [address], [place]. tel:[phone] [facility], 1 [facility] [address], [place], [place], [address], [place] tel:[phone] [place] Malignant neoplasm o f unspecified site of unspecified female breast 4 Munir Retana. [address] [place], [place], [address], [place]. tel:[phone] [facility], 1 [facility] [address], [place], [place], [address], [place] tel:[phone] [place] Sebaceous cyst 4 Phyllis Woody. 101 [facility] [place], [address], [place]. tel:[phone] [facility], 1 [facility], [place], [place], [address], [place] tel:[phone] [place] Malignant neoplasm o f unspecified site of unspecified female breast 4 Os Roxy. [address] [facility] [address] [place], [address], [place]. tel:[phone] [facility], [address] [facility] [address], [place], [place], [address], [place] tel:[phone] [place] Malignant neoplasm o f unspecified site of left female breast 4 Tarun Steinberg. [address], [place], [address], [place]. tel:[phone] [facility], [address] [facility], [place], [place], [address], [place] tel:[phone] [place] Edema, unspecified type 3 Aileen Gregg. [address] [facility] [place], [address], [place]. tel:[phone] [facility], 1 [facility], [place], [place], [address], [place] tel:[phone] [place] No Information 3 Os Roxy. [address], [place], [place], [address], [place]. tel:[phone] [facility], 1 [facility], [place], [place], [address], [place] tel:[phone] [place] Encounter for nutritional assessmentClass 1 obesity with serious comorbidity and body mass index (BMI) of 33.0 to 33.9 in adult, unspecified obesity typeBody mass index [BMI] 33.0-33.9, adult 3 Luis F Jones. [address], [place], [place], [address], [place]. tel:[phone] [facility], 1 [facility] [facility], [place], [place], [address], [place] tel:[phone] [place] Malignant neoplasm o f unspecified site of left female breast 3 Munir Retana. [address], [place], [address], [place]. tel:[phone] [facility], 1 [facility] [address] [facility], [place], [place], [address], [place] tel:[phone] [place] Semi-Annual (chief complaint) Type 2 diabetes mellitus with stage 2 chronic kidney disease, with long-term current use of insulinLong term (current) use of insulin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Autoimmune thyroiditisPrimary hyperparathyroidismHyp ertensive renal disease, stage 1 through stage 4 or unspecified chronic kidney diseaseLiver transplantedImmunosupp ressed statusCerebral palsy, unspecified type 3 Aileen Gregg. [address] [place], [place], [address], [place]. tel:[phone] [facility], [address] [address], [place], [place], [address], [place] tel:[phone] [place] Encounter for rehabilitation evaluation 3 Davian River. [address] [place], [address]. tel:[phone] [facility], [address] [address], [place], [place], [address], [place] tel:[phone] [place] Encounter for rehabilitation evaluation 3 Gerald Yeh. 101 [facility], [place], [place], [address]. tel:[phone] [facility], 1 [facility], [place], [place], [address], [place] tel:[phone] [place] Type 2 diabetes mellitus with diabetic peripheral angiopathy without gangrene, with long-term current use of insulinLong term (current) use of insulin 3 Luis Alberto Turner. [address] [place], [place], [address], [place]. tel:[phone] [facility], 1 [facility], [place], [place], [address], [place] tel:[phone] [place] No Information 3 Os Roxy. [address] [place], [place], [address], [place]. tel:[phone] [facility], 1 [facility], [place], [place], [address], [place] tel:[phone] [place] F/U (chief complaint)S ebaceous Cyst (chief complaint) Hyperlipidemia, unspecified hyperlipidemia typeCurrent use of insulinChronic kidney disease due to diabetes mellitusStage 3a chronic kidney diseaseHypertensive renal disease, stage 1 through stage 4 or unspecified chronic kidney diseaseCerebral palsy, unspecified typeInvasive ductal carcinoma of breast, female, leftChronic gout without tophus, unspecified cause, unspecified siteImmunosuppressed status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Autoimmune thyroiditisSebaceous cyst 3 Ephraim Gomez. [address] [place], [address], [place]. tel:[phone] [facility], 1 [employer], [place], [place], [address], [place] tel:[phone] [place] Encounter for nutritional assessmentClass 1 obesity without serious comorbidity with body mass index (BMI) of 32.0 to 32.9 in adult, unspecified obesity typeBody mass index [BMI] 32.0-32.9, adult 3 Normile Karen. [address], [place], [place], [address], [place]. tel:[phone] [facility], 1 [employer], [place], [place], [address], [place] tel:[phone] [place] Semi-Annual (chief complaint) Cardiac arrhythmia, unspecified cardiac arrhythmia typeCerebral palsy, unspecified typeOsteopenia, unspecified locationPure hypercholesterolemiaCu rrent use of insulinStage 3a chronic kidney diseaseType 2 diabetes mellitus with diabetic chronic kidney disease, unspecified CKD stage, unspecified whether truck terminal manager insulin useType 2 diabetes mellitus with diabetic peripheral angiopathy without gangrene, unspecified whether prison insulin useType 2 diabetes, controlled, with neuropathyHypothyroidi sm due to Quinton's thyroiditisAutoimmune thyroiditisPrimary hyperparathyroidismHyp ertensive renal disease, stage 1 through stage 4 or unspecified chronic kidney diseaseInvasive ductal carcinoma of breast, female, leftLiver transplantedImmunosupp ressed status 3 Os Roxy. [address], [place], [place], [address], [place]. tel:[phone] [facility], [address] [facility] [address], [place], [place], [address], [place] tel:[phone] [place] No Information Apr-0 4-202 3 Os Roxy. [address], [place], [address], [place]. tel:[phone] [facility], [address] [facility] [address], [place], [place], [address], [place] tel:[phone] [place] Oropharyngeal dysphagia Mar-2 8-202 3 Caselden Kristin. [address], [place], [address], [place]. tel:[phone] [facility], [address] [facility] [address], [place], [place], [address], [place] tel:[phone] [place] Oropharyngeal dysphagia Mar-2 0-202 3 Caselden Kristin. [address], [place], [address], [place]. tel:[phone] [facility], [address] [facility] [address], [place], [place], [address], [place] tel:[phone] [place] Oropharyngeal dysphagia Mar-1 5-202 3 Caselden Kristin. [address], [place], [address], [place]. tel:[phone] [facility], [address] [facility] [address], [place], [place], [address], [place] tel:[phone] [place] No Information Mar-0 8-202 3 Os Roxy. [address], [place], [address], [place]. tel:[phone] [facility], [address] [facility] [address], [place], [place], [address], [place] tel:[phone] [place] Oropharyngeal dysphagia Mar-0 2-202 3 Caselden Kristin. [address], [place], [address], [place]. tel:[phone] [facility], [address] [facility] [address], [place], [place], [address], [place] tel:[phone] [place] Oropharyngeal dysphagia b-1 3 Casejimboadalid Kristin. [address] [place], [place], [address], [place]. tel:[phone] [facility], [facility], [place], [place], [address], [place] tel:[phone] [place] Dysphagia, unspecifi ed typeOther dysphagia b-0 3 Alysa Kristin. [address] [place], [place], [address], [place]. tel:[phone] [facility], [facility], [place], [place], [address], [place] tel:[phone] [place] Non-recurrent abdominal hernia without obstruction or gangrene, unspecified hernia type Feb-0 3 Os Roxy. [address] [place], [place], [address], [place]. tel:[phone] [facility], 1 [facility] [address] [facility], [place], [place], [address], [place] tel:[phone] [place] [facility] Evaluation (chief complaint)P ost Hospital Evaluation (chief complaint) Cerebral palsy, unspecified typeLiver transplantedStage 3a chronic kidney disease Feb-0 3 Os Roxy. [address] [place], [place], [address], [place]. tel:[phone] [facility], 1 [facility] [address], [place], [place], [address], [place] tel:[phone] [place] No Information b-0 3 Luis Albertolaura Healyn. [address] [place], [place], [address], [place]. tel:[phone] [facility], 1 [facility] [address] [facility], [place], [place], [address], [place] tel:[phone] [place] Dysphagia, unspecifi ed type 3 Luis Alberto Turner. [address] [place], [place], [address], [place]. tel:[phone] [facility], 1 [facility], [place], [place], [address], [place] tel:[phone] [place] Difficulty in walkin g, not elsewhere classified 3 Davian River. [address] [facility] [place], [address]. tel:[phone] [facility], 1 [facility]te [facility], [place], [place], [address], [place] tel:[phone] [facility] [place] (chief complaint) Type 2 diabetes mellitus with diabetic chronic kidney disease, unspecified CKD stage, unspecified whether truck terminal manager insulin useStage 3a chronic kidney diseaseLiver transplantedAbdominal hernia without obstruction and without gangrene, recurrence not specified, unspecified hernia typeImmunosuppressed statusCerebral palsy, unspecified type 3 Deep Morales. [address] [facility] [place], [place], [id number], [place]. tel:[phone] [facility], [facility], [place], [place], [id number], [place] tel:[phone] [place] [facility] ADMIT (chief complaint) Non-recurrent abdominal hernia with obstruction without gangrene, unspecified hernia typeLiver transplantedImmunosupp ressed statusType 2 diabetes mellitus with diabetic chronic kidney disease, unspecified CKD stage, unspecified whether truck terminal manager insulin useCardiac arrhythmia, unspecified cardiac arrhythmia typeLeukocytosis, unspecified type 3 Deep Morales. [address] [place], [place], [id number], [place]. tel:[phone] [facility], [facility], [place], [place], [id number], [place] tel:[phone] [place] No Information 3 Os Roxy. [address] [place], [place], [id number], [place]. tel:[phone] [facility], [facility] [address] [facility], [place], [place], [id number], [place] tel:[phone] [place] Encounter for rehabilitation evaluation 2 Davian River. [address], [place], [address]. tel:[phone] [facility], [facility], [place], [place], [id number], [place] tel:[phone] [place] Encounter for rehabilitation evaluationAlteration in performance of activities of daily livingMild cognitive impairment, so stated 2 Gerald Yeh. [address] [place], [place], [id number]. tel:[phone] [facility], [facility], [place], [place], [id number], [place] tel:[phone] [place] Encounter for nutritional assessmentExcessive carbohydrate intakeDeficiency of other specified nutrient elementsOther obesity 2 Normile Karen. [address] [place], [place], [id number], [place]. tel:[phone] [facility], [facility], [place], [place], [id number], [place] tel:[phone] [place] Hypertensive chronic kidney disease with stage 1 through stage 4 chronic kidney disease, or unspecified chronic kidney diseaseHyperlipidemia, unspecified hyperlipidemia typeType 2 diabetes mellitus with diabetic chronic kidney disease, unspecified CKD stage, unspecified whether truck terminal manager insulin useCurrent use of insulin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Autoimmune thyroiditisPrimary hyperparathyroidismSta ge 3a chronic kidney diseaseImmunosuppresse d statusLiver transplantedCerebral palsy, unspecified typeHX: breast cancerDiabetes mellitus with peripheral vascular diseaseType 2 diabetes, controlled, with neuropathy 2 Os Roxy. [address], [place], [place], [id number], [place]. tel:[phone] [facility], [address], [place], [place], [id number], [place] tel:[phone] [place] No Information 2 Os Roxy. [address] [place], [place], [id number], [place]. tel:[phone] [facility], [address], [place], [place], [id number], [place] tel:[phone] [place] PHV (chief complaint) HerniaLiver transplantedHistory of small bowel obstruction Sep- 2 Os Roxy. [address] [place], [place], [id number], [place]. tel:[phone] [facility], [address], [place], [place], [id number], [place] tel:[phone] [place] Liver transplantedHernia Jul- 2 Luis Alberto Johnny. [address] [place], [place], [id number], [place]. tel:[phone] [facility], [address] [facility], [place], [place], [id number], [place] tel:[phone] [place] No Information 2 Os Roxy. [address] [place], [place], [id number], [place]. tel:[phone] [facility], [address], [place], [place], [id number], [place] tel:[phone] [place] Hypertension, unspecified type 2 Luis Alberto Johnny. [address] [place], [place], [id number], [place]. tel:[phone] [facility], [address], [place], [place], [id number], [place] tel:[phone] [place] Encounter for rehabilitation evaluationAlteration in performance of activities of daily livingMild cognitive impairment, so stated 2 Gerald Yeh. [address] [place], [place], [id number]. tel:[phone] [facility], [address], [place], [place], [id number], [place] tel:[phone] [place] Encounter for nutritional assessmentAbnormal weight gain 2 Normile Karen. [address], [place], [place], [id number], [place]. tel:[phone] [facility], [address] [facility] [address], [place], [place], [id number], [place] tel:[phone] [place] Semiannual (chief complaint) Hypertensive chronic kidney disease with stage 1 through stage 4 chronic kidney disease, or unspecified chronic kidney diseaseHyperlipidemia, unspecified hyperlipidemia typeCurrent use of insulin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Autoimmune thyroiditisPrimary hyperparathyroidismLiv er transplantedStage 3a chronic kidney diseaseHx of left mastectomyImmunosuppre ssed statusCerebral palsy, unspecified type 2 Os Roxy. [address], [place], [place], [id number], [place]. tel:[phone] [facility], [facility] [address], [place], [place], [id number], [place] tel:[phone] [place] Port-A-Cath in place Hx of left mastectomy 2 Os Roxy. [address], [place], [place], [id number], [place]. tel:[phone] [facility], [address] [facility] [address], [place], [place], [id number], [place] tel:[phone] [place] Liver transplanted 2 Os Roxy. [address], [place], [place], [id number], [place]. tel:[phone] [facility], [address] [facility] [address] [facility], [place], [place], [id number], [place] tel:[phone] [place] No Information 1 Luis Alberto Healyn. [address] [place], [place], [id number], [place]. 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 [address] [place], [place], [id number], [place]. tel:[phone] [facility], [facility], [place], [place], [id number], [place] tel:[phone] [place] Encounter for nutritional assessmentDiabetes education, encounter for 1 Sara Pool. [address] [place], [address]. tel:[phone] [facility], [facility], [place], [place], [id number], [place] tel:[phone] [place] Encounter for rehabilitation evaluation 1 Davian River. [address] [place], [address]. tel:[phone] [facility], [facility], [place], [place], [id number], [place] tel:[phone] [place] Encounter for rehabilitation evaluationMild cognitive impairment, so statedAlteration in performance of activities of daily living 1 Gerald Yeh. 101 [facility], [place], [place], [id number]. tel:[phone] [facility], [facility], [place], [place], [id number], [place] tel:[phone] [place] PEE (chief complaint) Encounter for general adult medical examination without abnormal findingsEncounter for screening for respiratory tuberculosisHypertensi on, unspecified typeSBE (subacute bacterial endocarditis) prophylaxis candidateCardiac arrhythmia, unspecified cardiac arrhythmia typeHyperlipidemia, unspecified hyperlipidemia typeType 2 diabetes mellitus without complication, unspecified whether truck terminal manager insulin useCurrent use of insulin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Autoimmune thyroiditisPrimary hyperparathyroidismVit campo D deficiencyHx of tracheostomyLiver transplantedHX: breast cancerHx of left mastectomyPersonal history of other malignant neoplasm of skinImmunosuppressed statusGout, unspecified cause, unspecified chronicity, unspecified siteOsteopenia, unspecified locationCerebral palsy, unspecified typeEdema, unspecified type 1 Os Roxy. [address] [place], [place], [id number], . tel:[phone] [facility], [address] [place] [address], [id number], [place] tel:[phone] [place] HX: breast cancerCardiac arrhythmia, unspecified cardiac arrhythmia type 1 Sara Pool. [address] [place], [address]. tel:[phone] [facility], [facility] [address], [place], [place], [address], [place] tel:[phone] [place] No Information 1 Luis Alberto Turner. [address] [place], [place], [id number], [place]. tel:[phone] [facility], [facility] [address] [place] [address], [id number], [place] tel:[phone] [place] Intake (chief complaint) Encounter for general adult medical examination without abnormal findingsEncounter for screening for respiratory tuberculosis 1 Luis Alberto Turner. [address] [place], [place], [id number], . tel:[phone] Family History Family Member Type Diagnosis Age At Onset No Information Immunizations Vaccine Date Status Comments Fluzone High Dose administered Source: New Immunization Record Fluzone High Dose administered So urce: New [...] Payer name Insurance type Covered libertarian ID Authormikhaila ruddyniurka(s) [employer] [id number] [id number] [id number] [employer] 16 [id number] [employer] 16 [id number] [employer] 16 [id number] [employer] 16 [id number] Social History Type Description Quantity Date Captured [...] Order: Lab Order BASIC ME TABOLIC PANEL ([id number]), Sent on: Sent Future Order: Lab Order MAGNESIU M (622), Ordered on: Ordered Future Order: Lab Order BASIC ME TABOLIC PANEL ([id number]), Ordered on: Ordered Future Order: Radiology Order Zheng ne density study (by DEXA); axial skeleton (e.g., hips, pelvis, spine) ([id number]), Ordered on: Ordered Future Order: Radiology Order Ma mmogram (Screen); Bilat, 2-view study of each breast, incl computer-aided detection when performed ([id number]), Ordered on: Ordered History Of Present Illness Encounter Date Complaint History Of Prese nt Illness Semi-Annual Seema is a 69 yea rs old female who has been enrolled in the [facility]ACE program since 09/2021 and is being seen for their semiannual exam.Patient had been seen in the clinic, along with her friend present.There have been no ER visits, hospital admissions, or SNF stays in the last 6 months. Collective reviewed.Diagnoses Reviewed.-No new diagnosesReferrals reviewed.Consults: w/in the last year-Dental: no dentures in place, referral made-Podiatry: cristy Gonzalez q3 months-Vision: Dr. Leiva; order in place-[facility]ocrinology: [facility] 09/25/23-no changes made-Hem/Onc: [facility] 02/22/24-post right masectomy; med changes made; DEXA ordered-Surgery: [facility] 02/21/24-post right masectomy-Dermatology: referral in for f/u on sebacious cyst scheduled for 11/13/24-Liver transplant GI: [facility] liver clinic Dr. Calderon 02/05/24: have [...] HCP/Brother Chuck Acute Visit Seema is a 69 yea rs old female who was seen for an acute visit at the [facility]. Pt previously had a laceration to [...] had been seen in her room at [facility].There have been no ER visits, hospital admissions, or SNF stays in the last 6 months. Collective reviewed.Diagnoses Reviewed.-No new diagnosesReferrals reviewed.Consults: w/in the last year-Dental: no dentures in place, referral made-Podiatry: cristy Gonzalez q3 months-Vision: Dr. Leiva; order in place-[facility]ocrinology: [facility] 09/25/23-no changes made-Hem/Onc: [facility] 02/22/24-post right masectomy; med changes made; DEXA ordered-Surgery: [facility] 02/21/24-post right masectomy-Dermatology: referral in for f/u on sebacious cyst scheduled for 11/13/24-Liver transplant GI: [facility] liver clinic Dr. Calderon 02/05/24: have [...] seen for an acute visit at the [facility]. She was seen and evaluated for [...] had been seen in her room at [facility].There have been no ER visits, hospital admissions, or SNF stays in the last 6 months. Diagnoses Reviewed.-No new diagnosesReferrals reviewed.Consults: w/in the last year-Dental: no dentures in place, referral made-Podiatry: cristy Gonzalez q3 months-Vision: Dr. Leiva; order in place-[facility]ocrinology: [facility] 09/25/23-no changes made-Hem/Onc: [facility] 02/22/24-post right masectomy; med changes made; DEXA ordered-Surgery: [facility] 02/21/24-post right masectomy-Dermatology: referral in for f/u on sebacious cyst scheduled for 11/13/24-Liver transplant GI: [facility] liver clinic Dr. Jung 02/05/24: have [...] had been seen in her room at [facility].Diagnoses Reviewed.-No new diagnosesReferrals reviewed.Consults: w/in the last year-Dental: no dentures in place, referral made-Podiatry: cristy Gonzalez q3 months-Vision: Dr. Leiva; order in place-Endocrinology: [facility] 09/25/23-no changes made-Hem/Onc: [facility] 02/22/24-post right masectomy; med changes made; DEXA ordered-Surgery: [facility] 02/21/24-post right masectomy-Dermatology: referral in for f/u on sebacious cyst scheduled for 11/13/24-Liver transplant GI: [facility] liver clinic Dr. Jung 02/05/24: have [...] for a SNF admission to [facility].Ppt currently lives at [facility]: 02/05/24-02/08/24CC[facility]Course complicated by hypotension, MARIA ESTHER, uncontrolled hyperglycemia and subsequently uncontrolled blood pressure which resolved. Discharged to rehab for further assist w/ ALEX drain management and insulin. Right breast cancers/p right mastectomy and sentinel lymph node biopsy on 02/04History of L breast cancer treated with simple mastectomy and chemotherapy, now with right breast cancer.SNF: [facility] 02/08/24-02/14/24ospital medications reviewed. Updated EMR.SNF summery: no significant medical information during SNF stay. Ppt required SNF for drain and insulin management. F/u visits:-PCP -Nan Gusman (surgeon)Today:-Ppt reports she feels well and is adjusting back at [facility]. No concerns at this time. Incision site w/o concerns for infection. ALEX drains had been emptied by [facility] prior to my arrival per ppt. BP 132/92. Stable at this time- would continue current medication regimen. Follow-up SNF Admit Seema is a 68 yea r old female who is being seen today for a SNF admission to [facility].Ppt currently lives at [facility]: 02/05/24-02/08/24CC: scheduled right mastectomy w/ Dr. [...] be discharged with ALEX drain.SNF: [facility] 02/08/24-TB02/08/24: Hospital medications reviewed.Updated EMR.Started:-Tamoxifen 20mg daily -Multivitamin 1 chew pgnsb-Skqaj-4 Polyunsaturated Fatty Acids 1000mg daily Changed:-Insulin Lispro [...] measuring about 100cc eachPlan:-Can return back to [facility] after ALEX drains removed and ppt is medically stable-Monitor weekly labsReviewed plan w/ nursing at SNF. Semi-Annual Patient is a 68 year old female who has been enrolled in the [facility]ACE program since 09/2021 and is being seen for their semi annual exam. She lives at [facility] and comes to the [facility] site as [...] Reviewed.-No new diagnosesReferrals reviewed.Consults:-Liver transplant physician (GI): [facility] liver clinic, Dr. Jung- last seen 09/2022 for s/p liver transplant for cruptogenic cirrhosis. Missing meds since the spring, urgent referral to GI.-Medical Physics Teacher: 10/2022- [facility]- no changes-Oncology: [facility] Dr. Coto- Continue tamoxifen for a total of at least 5 years. Mammogram due in September (oncology schedule). 2000/breast cancer stage II-III of left breast s/p masectomy w/ completed chemo on tamoxifin-continuing to take at this time for prophylaxis. -Endocrinology: [facility] endocrine- currently on numerous medications r/t DM. Last seen 2Recommended increase the 75/25 in AM to 28 units.-Dermatology: [facility] (previously doing yearly skin checks)Vision: Dr. Leiva, sees regularly.Dental: no dentures in place, referral made. Podiatry: [facility] podiatry.Screenings: Continuing to screen-Mammogram: 10/10/2022, yearly mammograms. [...] referral. She has restarted her medications. Comments: Left p osterior popliteal space with dry open sebaceous cystNo periwound erythemaJane brought it up as something that has been bothering her. She has not pain in the area. Comments: Being seen in follow up as she is starting with a new [facility] service and she needs provider visit. She lives at an [facility].Requires [facility] services for insulin administration. Her FSBS has been running in the mid 100s. She uses a CGM and self monitors. F/U Sebaceous Cyst Comments: Seema clemons s a 67 year old female who has been enrolled in the [facility]ACE program since 09/2021 and is being seen for their semiannual exam.Patient had been seen in her room at [facility].Diagnoses Reviewed.-No new diagnosesReferrals reviewed.Consults:-Liver transplant physician (GI): [facility] liver clinic, Dr. Jung- last seen 09/2022 for s/p liver transplant for cruptogenic cirrosis 2000/breast cancer stage II-III of left breast s/p masectomy w/ completed chemo on tamoxifin-continuing to take at this time for prophylaxis. 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 Coto- Continue tamoxifen for a total of at least 5 years. Mammogram due in September (oncology schedule). Return in 6 months for f/u.-Endocrinology: [facility] endocrine- currently on numerous medications r/t DM. Last seen 2Recommended increase the 75/25 in AM to 28 units.-Dermatology: [facility] (previously doing yearly skin checks)Vision: Dr. Leiva, sees regularly.Dental: no dentures in place, referral made. Podiatry: [facility] podiatry.Screenings: Continuing to screen-Mammogram: 10/10/2022, yearly mammograms. [...] being seen today for a PHV. [facility] 12/26/22-12/29/22Dx: MARIA ESTHER and UTI-Prior to admission ppt was hypotensive and labs were ordered showing a GFR 14 and creat of 3.51. Ppt is a liver transplant ppt (2000) and has been following Dr. Calderon at [facility]. Discussed lab findings and they advised to send to [facility]. Ppt did have a recent hernia repair in November at [facility] with complications including hemmorhagic shock and was treated for aspiration pneumonia. MARIA ESTHER was thought to be ATN in the setting of recent adverse reaction to zosyn. Ppt received IVF where creat improved to 1.5 upon discharge. Started on cipro IV on 12/27 culture negative. Discharged home to [facility].Med changes:-d/c'd clonidine -d/c'd lasix-d/c'd lisinopril-d/c'd metoprolol succinate-started metoprolol tartrate 25mg BID-resume cellcept (prescribed by Dr. Molinaday:-Ppt reports feeling better . Negative ROS. No complaints at this time. BP stable 124/82.Plan: -order CBC and BMP for in 1 week-med changes updated-appt with Dr. Calderon on 01/04/23 Post Hospital Evaluation [facility] SEEMA DAVID [facility] SUMMARY Patient encounter date 12/20/22DC date 12/21/22[facility] on 11/29 for robotic repair of [...] in the transplant clinic. --[facility]Cellcept HELDPrograf 0.5mg BID continued Zestril 5mg QD added --SNF COURSEPpt [facility] very well [facility]She remained without painShe did well [...] and dc order placed in chart APPOINTMENTS01/04/23 [facility] liver transplant [id number]/[id number] 98.4HR 8602 96ROSNo N V F Cno [...] placed. No dehis erythema edema or drainage. [facility] ADMIT SEEMA DAVID [facility] ADMITHPIfrom [facility] to [facility] on 11/29 for robotic repair of [...] the transplant clinic. MED CHANGES--Added:Cipro 500mg BID a5aOermcfwrsjl 100mg BID s2v--Mzmgzlp:Cellcept HELDPrograf 0.5mg BID --DCAmoxTresibaBMJBOU808/82RR 16T 99, recheck 97.8HR 86 palp02 96%ROSNo [...] clemons s a 66yo female resented to [facility] with less than 1 day of abdominal pain, nausea, and two episodes of emesis with concern for high-grade SBO at the level of her ventral hernia. She was subsequently transferred to [facility] d/t her history of liver transplant and the complexity of her ventral hernia.Upon arrival to [facility] her abdominal pain had resolved, and on exam had no tenderness to palpation, non-peritonitic. NGT was placed at [facility], decompressed overnight. Passing flatus. Also had a UA positive for infection. 1 dose of ceftriaxone and immunosuppressive medication held for a day. Tolerating the advancement in her diet. Had a BM. Deemed stable for discharge. Med changes: clonidine 0.2mg (previously 0.3mg)Today: Ppt appears comfortable has no problems and is "all better now . ROS negative.Plan: family requesting a follow up with [facility] GI as pt had been following (order in place)-Chuck (brother) reports [facility] appt is for 09/19/22 at 9:30a. No other concerns at this time. PHV Comments: Seema clemons s a 66 year old female who has been enrolled in the PACE program since 09/2021 and is being seen for their semiannual exam.Patient had been seen in her room at [facility].There have been no hospitalizations, SNF admission and/or ER visits in the last six months.CC: no concerns reported from pt nor brother/HCP Chuck.Diagnoses Reviewed.-No new diagnosesConsults:-Liver transplant physician (GI): [facility] liver clinic, Dr. Jung- last seen 09/2021 for s/p liver transplant for cruptogenic cirrosis 2000/breast cancer stage II-III of left breast s/p masectomy w/ completed chemo on tamoxifin-continuing to take at this time for prophylaxis. Follow up in 1 year (09/2022).-Medical Physics Teacher: [facility] Dr. Blackman- Will consider changing over to [facility] practices once they determine the need for eliquis as they have been monitoring for some time. -Oncology: [facility] Dr. Coto- Discussed w/ pt, would like to keep as they have her currently on Tamoxifen-Endocrinology: [facility] endocrine- currently on numerous medications r/t DM. Last seen 02/10/22. Recommended starting a freestyle ev which has been ordered for better BS monitoring. -Dermatology: [facility]- had been following yearly for skin survalience s/p basal cell carcinoma. Had discussed keeping their upcoming appt in October and would then see [facility] derm as needed- no appt in chartVision: Dr. Leiva, sees regularly.Dental: no dentures in place, referral made. Podiatry: [facility] podiatry.Screenings: Continuing to screen-Mammogram: 10/04/21, yearly mammograms.-Colonoscopy:2016, [...] enrollment exam.She currently is a resident at [facility]. Patient and brother/HCP, Chuck, have no concerns at this time. Diagnoses reviewed.Medications reviewed.Advance Directives discussed- pt and family is unsure at this time, would like to talk to all family members before final decision. Conversation started. -Liver transplant physician: [facility] liver clinic, Dr. Jung- sees regularly. -Medical Physics Teacher: [facility] Dr. Blackman- currently pt is on a holter monitor, medical assistant ob gyn determining if she should remain on eliquis. She is scheduled to see him 10/11/21. Will consider changing over to [facility] practices once they determine the need for eliquis as they have been monitoring for some time. -Oncology: [facility] Dr. Coto- Discussed w/ pt, would like to keep as they have her currently on Tamoxifen-Endocrinology: [facility] endocrine- currently on numerous medications r/t DM. Will put out a referral to [facility] endo. -Dermatology: [facility]- had been following yearly for skin survalience s/p basal cell carcinoma. Discussed keeping their upcoming appt in October and would then see [facility] derm as needed. Vision: Dr. Leiva, sees regularly.Dental: no dentures in place, referral made. Podiatry: will be transitioning to [facility] podiatry.Mammogram: 10/04/21, yearly mammograms.Bone density: last in 2019, scheduled every other year (due 2021)Colonoscopy: 2015, next due in 10 years (2025)WMM: Being able to care for self at current functional level. PEE Intake Very pleasant wo man, accompanied by her [id number], brother Chuck and disability case manager from [facility]. The patient apparently had intake in February however decision was made to delay proceeding due to living circumstances/roommate. The roommate has unfortunately moved out due to illness and the patient is now at the head of the waiting list for [facility] assisted living.We regrettably have virtually no medical records. There are a number of notes/lists that were printed out from the [facility] system however, no PCP records nor records from any of the subspecialists that she sees ([facility]). Interestingly, the family had no awareness of [...] dysphagia. Hearing is fairly good. She sees steel box toe inserter, the exact extent of any vision impairment [...] at the very least:Liver transplant physician at [facility] (Dr. Calderon)Indicated that the dairy inspector (Dr. Carlos) is in networkDr. Faizan Leiva, her steel box toe inserter is in networkI explained that if needed oncology service (likely needed as she is on maintenance tamoxifen), endocrinology (very complicated regimen), GI, surgery, cardiology would likely be transitioned to [facility] practice. I explained that this helps maintain continuity of care and allows us access to records. I indicated that [facility] is our preferred hospital and that we strongly encourage its use somewhat negating any benefit of continuity with previous providers as they do not go to [facility]. I did not specifically address the respiratory coordinator. They are aware that there is a respiratory coordinator that goes to [facility] although I am unclear if it someone we are affiliated with.Medication, which is extensive, was updated via the list that the brother provided.Problem list was updated to the best of my ability based upon the limited information available to us. Suggestion that there was a bone density done in 2019. I cannot explicitly know why she is seeing a dairy inspector. The medical assistant ob gyn seems to surround the issue of the arrhythmia, again presumed atrial fibrillation. The role of the patch machine operator is unclear. The general surgeon performed the [...] living assumes management of her medications via [facility] Instructions Date Instruction Additional Infor hetal Ppt is on immunosupp ression medications due to her history of liver transplant and breast cancer Continue tacrolimus for liver transplantContinue Anastrozole for breast cancerWill continue to monitor Related to Immunodeficiency, unspecified Patient with hypothy roidism secondary to Quinton's TSH within rangePt remains asymptomatic at this timeContinue LevothyroxineWill continue to monitor Related to Autoimmune thyroiditis Chemotherapy was the first line of action; [...] of unspecified site of left female breast Patient had Afib s/p chemoSecondary hypercoagulable stateContinue EliquisWill continue to monitor Related to Secondary hypercoagulable state Patient with Type 2 DM and CKDCurrently [...] elevated at 177 on the morning of examLast HgA1C 8.7Continue insulinContinue Trulicity and PrandinWill keep the same [...] next visitWill continue to monitor Related to prison (current) use of insulin Prograf ongoing Cont inues to follow up with [facility]- Dr Olson continue to monitor Related to Liver transplant status Patient with a left hand laceration that [...] of unspecified site of left female breast Patient had Afib s/p chemoSecondary hypercoagulable stateContinue EliquisWill continue to monitor Related to Secondary hypercoagulable state Prograf ongoing Cont inues to follow up with [facility]- Dr Olson continue to monitor Related to Liver transplant status Patient with Type 2 DM with hyperglycemiaFBS numbers have improved but still mildly elevated at 177 on the morning of examContinue insulinContinue Aracely and PrandinWisedrick keep the same dosage for now to avoid hypoglycemiaWill check HgA1C with next visitWill continue to monitor 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 Patient is here [...] monitor Related to Immunodeficiency, unspecified Patient with onychau xis of the toes [...] ongoing Cont inues to follow up with [facility]- Dr Olson continue to [...] next visitWill continue to monitor 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 She has daily VNA.-Increase Lantus to 34 units (0.43u/kg/day), increase Trulicity to 4.5mg weekly, continue prandin 1mg per meal (with consideration to increase prandin next week if numbers still running high, which I suspect they will be). 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 She has daily VNA.-Increase Lantus to 34 units (0.43u/kg/day), increase Trulicity to 4.5mg weekly, continue prandin 1mg per meal (with consideration to increase prandin next week if numbers still running high, which I suspect they will be). Related to Type 2 diabetes mellitus with hyperglycemia, with long-term current use of insulin Followed by hem/oncP pt [...] months. - I will obtain records from [facility]. It is likely that she would [...] months. - I will obtain records from [facility]. It is likely that she would [...] on lasix. Related to Edema, unspecified type Bone density exams p erformed every other year per HCP. Next scan due in 2021- order is in place. Currently taking vitamin D.Vit D level ordered. Related to Osteopenia, unspecified location CKD08/2023 GFR 64Avo id nephrotoxic medications Related to Stage 3a chronic kidney disease Continued to be foll ow by [facility] endocrinology primarily for diabetes. 08/2023: TSH w/ reflex 3.08Ordered TSHContinue levothyroxine Related to Autoimmune thyroiditis Currently takes mult ivitamin, tums, and vit D. 08/2023 calcium 8.81 PTH 129Ordered vit D, and calcium level.Currently followed by endocrine primarily for diabetes.-No changes in regards to hyperpartathyroidism Related to Primary hyperparathyroidism Prograf ongoing [facility] s liver clinic (GI), Dr. Jung- had f/u appt on 01/04/2023 for s/p liver transplant for cruptogenic cirrosis Related to Liver transplanted Continued to be foll ow by [facility] endocrinology primarily for diabetes. 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 Humulog mix 75-25 an d trulicityFollows endocrine01/29/24: A1C 8.2Abnormal monofilimentDaily feet checks Related to Type 2 diabetes mellitus with diabetic polyneuropathy, unspecified whether prison insulin use BPs have been stable Continue metoprolol and diltiazemCKDGFR 64Avoid nephrotoxic medications Related to Hypertensive chronic kidney disease with stage 1 through stage 4 chronic kidney disease, or unspecified chronic kidney disease 01/29/24: A1C 8.2Conti nue home medicationsCKDGFR 64Avoid nephrotoxic medications Related to Type 2 diabetes mellitus with diabetic chronic kidney disease, unspecified CKD stage, unspecified whether prison insulin use Continue Humulog mix 75-25 Continue Trulicity Follows endocrineBG between 100-200 Related to Current use of insulin Followed by endocrin eContinue insulin01/29/24: A1C 8.2Decreased pulses. Shiny hairless guzman LE. 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 [facility] had assessed ppt on 05/17/22 where they were going to continue the eliquis and metoprolol until they further review ppts holter and ECHO from [facility].No longer following cardiology regularlyToday: RRR Related to Cardiac arrhythmia, unspecified cardiac arrhythmia type 10/02/23 Total chol 2 67, HDL 42, TRI 467, Ratio 6.4, Non HDL 225, GLU 176-Continue LipitorLipid panel for semiMay consider increasing lipitor Related to Hyperlipidemia, unspecified hyperlipidemia type Ppt reports she feel s well and is adjusting back at [facility]. No concerns at this time. Incision site [...] never required braces . 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 Cognitive delay evident; aejeuez02/2022 MOCA MOCA Related to Cerebral palsy, unspecified type Diltiazem 24 ER 180m g dailyMetoprololControlledeGFR 60s, stage 2 currently, has historically been stage 3a Related to Hypertensive renal disease, stage 1 through stage 4 or unspecified chronic kidney disease Prograf ongoing Cell cept held d/t leurkocytosis after surgery- [facility]- had f/u appt on 01/04/2023 for s/p liver transplant for cruptogenic cirrosis 2000/breast cancer stage II-III of left breast s/p masectomy w/ tamoxifinPlan: Follow up THIAGO Related to Liver transplanted Currently takes mult ivitamin, tums, and vit D. 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 Cognitive delay evident; irwbqpb84/2022 MOCA Related to Cerebral palsy, unspecified type [...] chronic kidney disease 03/23/23 Creatinine/G FR 0.93/67[facility] 12/26/22-12/29/22Dx: MARIA ESTHER and UTI-Prior to admission [...] d/t leurkocytosis after surgery- [facility]- had [...] left BPs stable Being fol lowed by [facility] medical assistant ob gyn: Dr. Blackman and was switched to [facility] medical assistant ob gyn. -Currently taking clonidine, cardizem, lisinopril, and metoprolol [...] ordered for semiContinued to be follow by [facility] endocrinology primarily for diabetes. 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 Related to Autoimmune thyroiditis Dose increased per e ndocrine.75/25 insulin: 28 units in the AM 20 units in PMA1C 8.5Abnormal monofiliment Related to Type 2 diabetes, controlled, with neuropathy Dose increased per e ndocrine.75/25 insulin: 28 units in the AM 20 units in PMFollowed by [facility] endocrinology. She is on numerous medications r/t DM2 that are being managed by [facility] endo: repaglinide, tresiba, and [id number] 8.5Recent hospitalization 12/2022 showed labs were ordered showing a GFR 14 and creat of 3.51. MARIA ESTHER was thought to be ATN in the setting of recent adverse reaction to zosyn. Ppt received IVF where creat improved to 1.5 upon discharge. Related to Type 2 diabetes mellitus with diabetic chronic kidney disease, unspecified CKD stage, unspecified whether prison insulin use A1C 10/2022: 8.5Rece nt increase in insulinDecreased pulses. Shiny hairless guzman LE. 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 -12/29/22Dx: MARIA ESTHER and UTI-Prior to admission [...] 3a chronic kidney disease A1C 8.5Followed by [facility] endocrinology. She is on numerous medications r/t DM2 that are being managed by [facility] endo: repaglinide, tresiba, [...] never required braces . Cognitive delay evident; obcigjq30/2022 MOCA 17/30 Related to Cerebral palsy, unspecified type She is currently on eliquis and metoprolol for afib.Pt had afib during her chemotherapy tx per brother/HCP. [facility] had assessed ppt on 05/17/22 where they were going to continue the eliquis and metoprolol until they further review ppts holter and ECHO from [facility]. May consider d/c'ing in the future. Today: RRR Related to Cardiac arrhythmia, unspecified cardiac arrhythmia type s/p surgical repaira bd incision CDI with staplesJP dremoved abd soft NT good bowel sounds (+)flauts/BMfollowup with surgeon in next 1-2 weeks no pain use pain PRNabd exam otherwise benign Related to Non-recurrent abdominal hernia without obstruction or gangrene, unspecified hernia type [facility] -12/29/22Dx: MARIA ESTHER and UTI-Prior to admission [...] never required braces . 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 Cognitive delay evident; egoeegy69/2021 MOCA 20/30 Related to Cerebral palsy, unspecified type Left mastectomy in .[facility] General Surgery: DCIS [...] and mycophenolate prescribed by Dr. Calderon of [facility] liver transplant clinic. Referral made for f/u. Related to Immunosuppressed status [facility] ( GI), Dr. 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 She will have labs drawn [id number] at [facility]. Plan: Follow up [...] ordered for semi Related to Autoimmune thyroiditis Endocrine: 08/23/22: Humalog 75/25 increased from 20 units bid to 24units in the AM and 20units in PM. Ppt is also on repaglinide and [id number] 02/2022: 8.5; reassess for semiCKD: GFR- 39-Avoid nephrotoxic medications Related to Type 2 diabetes mellitus with diabetic chronic kidney disease, unspecified CKD stage, unspecified whether prison insulin use BPs stable 126/82Bei ng followed by [facility] medical assistant ob gyn: Dr. Blackman and was switched to [facility] medical assistant ob gyn. -Currently taking clonidine, cardizem, lisinopril, and metoprolol Related to Hypertensive chronic kidney disease with stage 1 through stage 4 chronic kidney disease, or unspecified chronic kidney disease History of ventral a nd umbilical hernias.History of liver transplant at [facility], should follow up with them for evaluation of this hernia and any possible need for intervention now that it is clear she is not acutely obstructed. Related to Hernia [facility] liver clinic ( GI), Dr. Everardo carlson seen 09/2021 for s/p liver transplant for cruptogenic cirrosis 2000/breast cancer stage II-III of left breast s/p masectomy w/ completed chemo on tamoxifinCurrently on Prograf of 0.5mg bid though may consider decreasing to daily if her creatinine trends upward. She will have labs drawn [id number] at [facility]. Plan: Follow up in 1 year. Related to Liver transplanted Presented to [facility] h less than 1 day of abdominal pain, nausea, and two episodes of emesis with radiographic concern for high-grade small bowel obstruction at the level of her ventral hernia. Given her history of liver transplant and the complexity of her ventral hernia, she was transferred to [facility] for further management. Upon arrival however, her abdominal pain had resolved, and on exam had no tenderness to palpation. She had an NGT that was placed at [place], allowed to decompress overnight. She continued to pass flatus. Her NGT was removed the following day. She subsequently had a bowel movement and was advanced to a regular diet. She tolerated solid food well without further pain. Related to History of small bowel obstruction [facility] liver clinic ( GI), Dr. Everardo carlson seen 09/2021 for s/p liver transplant for cruptogenic cirrosis 2000/breast cancer stage II-III of left breast s/p masectomy w/ completed chemo on tamoxifinCurrently on Prograf of 0.5mg bid though may consider decreasing to daily if her creatinine trends upward. She will have labs drawn [id number] at [facility]. Plan: Follow up in 1 year. Related to Liver transplanted History of ventral a nd umbilical hernias.History of liver transplant at [facility], should follow up with them for evaluation of this hernia and any possible need for intervention now that it is clear she is not acutely obstructed.Will f/u w/ [facility] Related to Hernia BPs stableBeing foll owed by [facility] medical assistant ob gyn: Dr. Blackman. May consider switching cardiologists (to [facility] provider). No recent visits since [...] and mycophenolate prescribed by Dr. Calderon of [facility] liver transplant clinic. Related to Immunosuppressed status Pt has been followin g general surgery Dr. Aaron [facility] s/p mastectomy. She has been following up every 6 months per office. Discussed w/ HCP she should keep this last appt and then she should not need to keep following up. Related to Hx of left mastectomy Currently takes mult ivitamin, tums, and vit D. 09/2021 PTH 161, calcium 8.7Ordered vit D, and calcium level. Related to Primary hyperparathyroidism [facility] liver clinic ( GI), Dr. 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 She will have labs drawn [id number] at [facility]. Plan: Follow up in 1 year. Related to Liver transplanted 12/2021: GFR 49-Avoid nephrotoxic medications Related to Stage 3a chronic kidney disease Continued to be foll ow by [facility] endocrinology primarily for diabetes. 09/2021 TSH 2.06Ordered TSHContinue levothyroxine Related to Autoimmune thyroiditis Continued to be foll ow by [facility] endocrinology primarily for diabetes. 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 Last seen he is on numerous medications r/t DM2 that are being managed by [facility] endo: repaglinide, tresiba, and trulicityMost recent visit recommended a freestyle ev for better BS monitoring. This has been ordered. Related to Current use of insulin 10/06/21: TC 178, HD L 33, LDL 102, TG 320Currently taking lipitor Related to Hyperlipidemia, unspecified hyperlipidemia type BPs stableBeing foll owed by [facility] medical assistant ob gyn: Dr. Blackman. May consider switching cardiologists (to [facility] provider). No recent visits since PEE.-Currently taking clonidine, cardizem, and metoprolol Related to Hypertensive chronic kidney disease with stage 1 through stage 4 chronic kidney disease, or unspecified chronic kidney disease Pt has been followin g general surgery Dr. Aaron [facility] s/p mastectomy. She has been following up every 6 months per office. Discussed w/ HCP she should keep this last appt and then she should not need to keep following up. Related to Hx of left mastectomy Port in chest from oncology Rela markus to Port-A-Cath in place Per preenrollment re cords and family. [facility], [address]. Currently seeing Dr. Calderon.Dr. Calderon prescribes and refills: fish oil, mycophenolate mofetil, and tacrolimusHCP reports best way to contact is through his RN Pau- [phone] Related to Liver transplanted 10/06/21: A1C: 7.2 Related to Ty pe 2 diabetes mellitus without complication, unspecified whether prison insulin use Hx of liver transpla nt, currently taking tacrolimus and mycophenolate prescribed by Dr. Calderon of [facility] liver transplant clinic. Related to [...] any medications. Had previously received services from S.She ambulates w/ no assistive devices, appears to [...] lasix. Related to Edema, unspecified type Follows [facility] endocrin ology.Currently takes [...] tracheostomy Per preenrollment re cords and family. [facility], [address]. [address] Calderon.Dr. Calderon prescribes and refills: fish oil, mycophenolate mofetil, and tacrolimusHCP reports best way to contact is through his RN Pau- [phone] Related to Liver transplanted Left mastectomy in . Yearly mammograms. History of breast cancer scheduled for mammogram on 10/04/21-completed. Related to HX: breast cancer Left mastectomy perf ormed in 06/2021 per HCP and pt. Scar notable upon exam, no evidence of infection at surgical site. 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 Follows [facility] every year for full body scan. Discussed keeping appt that has already been scheduled in 10/2021 and then will f/u as needed. Pt and HCP agreeable to this plan. Related to Personal history of other malignant neoplasm of skin Followed by [facility] endo crinology. Referral made to [facility] endocrinology. Currently on levothyroxine: prescirbed by [facility] design inserter. 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 Referral made to [facility] endocrinology. Currently on levothyroxine: prescirbed by [facility] design inserter. Related to Autoimmune thyroiditis She is currently [...] deformities. Pt checks feet regularly. Followed by [facility] endocrinology. Referral made to [facility] endocrinology. 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 No loss of protection, no ulcers or deformities. Pt checks feet regularly. Followed by [facility] endocrinology. Referral made to [facility] endocrinology. She is on numerous medications r/t DM2 that are being managed by [facility] endo: repaglinide, tresiba, and trulicity Related to Current use of insulin BP stable today: 122 /74Being followed by [facility] medical assistant ob gyn: Dr. Blackman. May consider switching cardiologists (to [facility] provider) after medication changes are [...]
[2025-08-27 15:04] LABS: Appearance Urine Clear; Glucose Urine UA Negative (Negative); PH 6.0 (5.0-9.0); Specific Gravity - Urine 1.015 (1.005-1.025); UMIC TRIGGER UA YES
[2025-08-27 15:20] LABS: Other Crystals Urine Present
[2025-08-27 15:44] LABS: Protein/Creatinine Ratio, Ur 2.50 (<0.2); Total Protein Urine Random 174 mg/dL (<12)
[2025-08-27 15:57] LABS: Microalbum/Creatinine Ratio Ur 1505.7 ug/mg cr (<30)
--- OUTSIDE RECORDS SUMMARY | 2025-08-27 15:57 | XMS_ITS | Encounter Summary ---
Author Organization [facility] Address [address] [address] Phone Care Team Providers Care Production Line Technician Name Role Phone Roxy Leslie NP Primary Care Provider Unavailab le Encounter Details Date Type Department Care Team ([facility] Contact Info) Description 08/25/2025 Orders Only [facility] [address] [address] Vicente Benson MD [facility] [address] Social History Tobacco Use Types Packs/Day Years [...] Department Care Team (Late Contact Info) Description 09/03/2025 3:00 PM EDT Office Visit [facility] [address] [place] [address] Vicente Benson MD [address] [address] 09/11/2025 Orders Only [facility] [address] [place] [address] Vicente Benson MD [address] [facility] [address] [place] [address] Chronic kidney disease, stage 4 (severe) (HCC) documented as of this encounter Procedures Procedure Name Priority Date/Time Associated Diagnosis Comments CREATININE, BLOOD Routine 08/25/2025 2:5 4 PM EDT PTH, INTACT (HC) Routine 08/25/2025 2:54 PM EDT BUN Routine 08/25/2025 2:54 PM EDT CALCIUM Routine 08/25/2025 2:54 PM EDT ELECTROLYTE PANEL Routine 08/25/2025 2:5 4 PM EDT documented in this encounter Results * Calcium (08/25/2025 2:54 PM EDT) Calcium 9.8 8.4 - 10.2 mg/dL See order comments 08/25/2025 2:54 PM EDT 08/25/2025 2:54 PM EDT Vicente Benson MD LAB BLOOD ORDERABLES Final Result [place] See order comments [place] [address] * (ABNORMAL) Creatinine (08/25/2025 2:54 PM EDT) Creatinine Serum 2.39(H) 0.5 - 1.4 mg/dL See order comments eGFR (Calc) 20 See orde r comments Comment: Chronic Kidney Disease: Estimated GFR < 60 mL/min/1.73m2 Severe Kidney Disease: Estimated GFR < 15 mL/min/1.73m2 08/25/2025 2:54 PM EDT 08/25/2025 2:54 PM EDT us Vicente Benson MD LAB BLOOD ORDERABLES Final Result Performing Organization Address [facility] de Phone Number [place] See order comments [place] [address] * (ABNORMAL) BUN (08/25/2025 2:54 PM EDT) BUN 51(H) 9 - 16 mg/dL See order comments 08/25/2025 2:54 PM EDT 08/25/2025 2:54 PM EDT us Vicente Benson MD LAB BLOOD ORDERABLES Final Result Performing Organization Address [facility] de Phone Number [place] See order comments [place] [address] * (ABNORMAL) Electrolyte panel (08/25/2025 2:54 PM EDT) Sodium 139 135 - 145 mmol/L See order comments Potassium 5.4(H) 3.3 - 5.1 mmol/L See order comments Chloride 105 96 - 108 mmol/L See order comments Bicarbonate (CO2) 27 22 - 29 mmol/L See order comments Anion Gap 12 12 - 20 See order comments 08/25/2025 2:54 PM EDT 08/25/2025 2:54 PM EDT us Vicente Benson MD LAB BLOOD ORDERABLES Final Result Performing Organization Address [facility] de Phone Number [place] See order comments [place] [address] * (ABNORMAL) PTH, Intact (08/25/2025 2:54 PM EDT) Parathyroid Hormone, Intact 95.0(H) 8.7 - 77.1 pg/mL See order comments 08/25/2025 2:54 PM EDT 08/25/2025 2:54 PM EDT us Vicente Benson MD LAB HISTORICA [id number] RESULTS Final Result Performing Organization Address [facility]/State/ZIP Co de Phone Number [place] See order comments [place] [address] documented in this encounter Visit Diagnoses Not on filedocumented in this encounter Care Teams Production Line Technician Relationship Specialty Start Date End Date Roxy Leslie NP [address] [place] [address] PCP - General Geriatric Medicine 07/17/24 documented as of this encounter
--- OUTSIDE RECORDS SUMMARY | 2025-08-27 15:57 | XMS_ITS ---
Author Organization [facility] Address [address] [place] [address] Care Team Providers Care Family Preservation Officer Name Role Phone Mallorie Draper Primary Care Provider [phone] Transplant Episode Liver Recipient [facility] ([place], [place]) - [facility] Organ Received: Liver Transplanted on 09/07/2001 Marked as Active Follow-up on 09/07/2001 Liver CoordinatorMonique Capps RN Phone: N/A Fax: N/A Email: N/A [place] Organ Diagnosis Organ Primary Contributory Liver Cirrhosis: [...] N/A N/A N/A Dex Charlton Referring Physician [phone] N/A Eveline Calderon MD [employer]endor [phone] [email or web address] Events Post-Transplant Pre-Transplant Admitted: 08/22/2001 Referred: 12/17/2000 Transplanted: 09/07/2001 Evaluation began: 1 Discharged: 12/20/2001 Committee: 07/02/2001 Center waitlisted: 1
--- OUTSIDE RECORDS SUMMARY | 2025-08-27 15:57 | XMS_ITS | Encounter Summary ---
Author Organization [facility] Address [address] [address] Phone Care Team Providers Care Sales And Marketing Assistant Name Role Phone Roxy Leslie NP Primary Care Provider Unavailab le Encounter Details Date Type Department Care Team ([facility] Contact Info) Description 08/27/2025 Telephone [facility] [address] [address] Vicente Benson MD [address] [address] Social History Tobacco Use Types [...] encounter Miscellaneous Notes * Telephone Encounter - Vicente Benson MD - 08/27/2025 1:29 PM EDT Ask pt to stop losartan and rpt bmp on 09/02/25 documented in this encounter Plan of Treatment Upcoming Encounters Date Type Department Care Team (Late Contact Info) Description 09/03/2025 3:00 PM EDT Office Visit [facility] [address] [place] [id number] Vicente Benson MD [address] [address] 09/11/2025 Orders Only [facility] [address] [place], [place] [address] Vicente Benson MD [address] [address] Chronic kidney disease, stage 4 (severe) (HCC) Pending Results Name Type Priority Associated Diagnoses Date /Time Albumin, urine, random Lab Routine 2:22 PM EDT Scheduled Orders Name Type Priority Associated Diagnoses Orde r Schedule Basic Metabolic Panel Lab Routine Other acute kidney failure (HCC) Expected: 08/27/2025, Expires: 09/27/2026 documented as of this encounter Procedures Procedure Name Priority Date/Time Associated Diagnosis Comments ALBUMIN, URINE, RANDOM Routine 08/27/2025 2:22 PM EDT documented in this encounter Visit Diagnoses Diagnosis Other acute kidney failure (HCC)- Primary Chronic kidney disease, stage 4 (severe) (HCC) documented in this encounter Care Teams Sales And Marketing Assistant Relationship Specialty Start Date End Date Roxy Leslie NP [address] [place] [address] PCP - General Geriatric Medicine 07/17/24 documented as of this encounter
--- OUTSIDE RECORDS SUMMARY | 2025-08-27 15:57 | XMS_ITS | Encounter Summary ---
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 Not on file documented as of this encounter Plan of Treatment Upcoming Encounters Date Type Department Care Team (Late st Contact Info) Description 03/02/2026 11:30 AM EDT Follow-Up [facility] Liver Transplant Services [address] [place] [address] Eveline Calderon MD [address] [place] [address] Scheduled Orders Name Type Priority Associated Diagnoses Orde r Schedule Comprehensive Metabolic Panel Lab Routine Liver replaced by transplant (HCC) Immunosuppressed status (HCC) Every 4 Weeks for 6 Occurrences starting 08/27/2025 until 02/23/2026 Magnesium Lab Routine Liver replaced by transplant (HCC) Immunosuppressed status (HCC) Every 4 Weeks for 6 Occurrences starting 08/27/2025 until 02/23/2026 CBC Auto Differential Lab Routine Liver replaced by transplant (HCC) Immunosuppressed status (HCC) Every 4 Weeks for 6 Occurrences starting 08/27/2025 until 02/23/2026 Tacrolimus Level Lab Routine Liver replaced by transplant (HCC) Immunosuppressed status (HCC) Every 4 Weeks for 6 Occurrences starting 08/27/2025 until 02/23/2026 documented as of this encounter Visit Diagnoses Diagnosis Liver replaced by transplant- Primary Liver replaced by transplant Immunosuppressed status (HCC) documented in this encounter Additional Health Concerns Infection Onset Date Last Indicated Resolved Time 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
--- OUTSIDE RECORDS SUMMARY | 2025-08-27 15:57 | XMS_ITS | Encounter Summary ---
Author Organization [facility] Address [address] [place] [address] Care Team Providers Care Auto Machinist Name Role Phone SukhwinderMallorie shelton Stephie Primary Care Provider [phone] Encounter Details Date Type Department Care Team (Late st Contact Info) Description 08/29/2017 Transplant Conversio n Encounter [employer] [facility] Information Management [address] [place] [address] Provider, [facility] Social History Tobacco Use Types [...] Info) Description 03/02/2026 11:30 AM EDT Follow-Up [facility] Liver Transplant Services [address] [place] [address] Eveline Calderon MD [address] [place] [address] documented as of this encounter Visit Diagnoses Not on filedocumented in this encounter Additional Health Concerns Infection Onset Date Last Indicated Resolved Time COVID-19 - Confirmed infecti on Comment:[facility] 12/28/2020 12/28/2020 01/18/2021 3:47 PM EST R/O Respiratory Virus Infection 12/26/2022 3 12/26/2022 10:05 PM EST R/O Influenza 12/26/2022 12/26/2022 12/26/2022 10: 05 PM EST COVID-19 - Suspected infection 12/26/2022 12/26/2022 12/26/2022 10:05 PM EST VRE Enterococcus 12/26/2022 12/26/2022 documented as of this encounter Care Teams Auto Machinist Relationship Specialty Start Date End Date Mallorie Draper [facility], [id number] [place] [address] PCP - General Internal Medicine 01/21/24 documented as of this encounter
--- OUTSIDE RECORDS SUMMARY | 2025-08-27 15:57 | XMS_ITS | Patient Health Record ---
Author Organization [facility] Address [address] [place] [address] Care Team Providers Care Gift Basket Packer Name Role Phone Nahum Fernandez MD Primary Care Provider Dex Live Unavailable [phone] Reason For Referral No Information Medications Medication SIG (Take, Route, Frequency, Duration) Notes Start Date End Date Status Vitamin D (Ergocalciferol) 40320 UNIT TAKE 1 CAPSULE EVERY 2 WEEKS. [...] HCl 0.3 MG TAKE 1 TABLET BY [facility] EVERY DAY Oral for 90 Active [...] HCl 500 MG TAKE 1 TABLET BY [facility] TWICE A DAY WITH MEALS Oral [...] Problem Status W/U Status Risk Notes Problem [id number] Encounter for screening for malignant neoplasm of colon (Z12.11) Active confirmed Problem Screening for malignant neoplasm of rectum (983364099) Encounter for screening for malignant neoplasm of rectum (Z12.12) Active confirmed Problem [id number] Long-term use of aspirin therapy (Z79.82) Active confirmed Problem 839089260 Hx of cirrhosis (Z87.19) Active confirmed Plan Of Treatment Future Test Test Name Order Date COLONOSCOPY 06/13/2016 Insurance Providers Payer Name Payer Address Payer Phone Subscriber Number Group Number Insured Name Patient Relationship to Insured Coverage Start Date Coverage End Date MEDICARE OF [place] [address] [place] [address] [id number] GILLES CHONG Self - patient is the insured MEDICAID OF [facility] [address] [place] [address] [id number] GILLES CHONG Self - patient is the insured Medical (General) History Medical History History ICD Code Screening colonoscopy in 03/05/2006-nega tive 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
--- OUTSIDE RECORDS SUMMARY | 2025-08-27 15:58 | XMS_ITS | Clinical Summary ---
Author Organization [facility] Address [address] [place] [address] Care Team Providers Care Electronics Engineering Manager Name Role Phone Mallorie Draper Primary Care Provider [phone] Allergies Active Allergy Reactions Criticality Noted Date [...] a day. 09/12/20 Active FreeStyle Ev 2 [place] [facility] 07/13/20 Active calcium carbonate 400 mg calcium (1,000 mg) tablet,chewable Chew and swallow 1,000 mg by mouth. 05/17/20 Active OneTouch Verio Flex meter [facility] [...] 56 capsule 11 03/06/20 25 Active omega 7-vtv-rgk-fish oil 300-1,000 mg capsule capsule TAKE (1) CAPSULE BY MOUTH DAILY 28 capsule 08/12/20 25 Active mycophenolate mofetil (CELLCEPT) 250 mg capsuleIndicati ons:Liver replaced by transplant TAKE (1) CAPSULE BY MOUTH TWICE DAILY. 60 capsule 08/12/20 25 Active omega 9-qpq-psb-fish oil 300-1,000 mg capsule capsule TAKE (1) [...] nasal swab MRSA PCR. -ICU glycemic protocol. 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); Immunosuppressed status (HCC) 08/11/2025 Refill [facility] [address] [place] [address]120 Eveline Claderon MD Liver replaced by transplant (HCC) 07/16/2025 Refill [facility] [address] [place] [address] 01897 Eveline Calderon MD Liver replaced by transplant (HCC) 06/19/2025 Refill [facility] [address] [place] [address] 48396 Accounting Manager Assistant Controller: Luci Patel MD Liver replaced by transplant (HCC) 05/27/2025 Refill [facility] [address] [place] [address] 59583 Eveline Calderon MD Liver replaced by transplant (HCC) from Last 3 Months Immunizations Immunization Administration Dates Next Due Covid-19, Pfizer, mRNA, [place] valent, PF 30 mcg/0.3 mL dose (for [...] 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 [...] EDT Follow-Up [facility] [address] [place] [address]55 Eveline Calderon MD [address] [place] [id number] Health Maintenance Due Date Last Done Comments [...] 12/29/2022, 02/0 12/2022, 12/27/2022, Additional history exists Alcohol/Substance Use Screening 11/26/2024 Depression Screening and Follow-Up 11/26/2024 Health Care Proxy Review 11/26/2024 Social Drivers of Health Annual Screening 11/26/2024 Basic Metabolic Panel 07/03/2025 03/03/2025 , 03/06/2024, 04/24/2023, Additional history exists COVID-19 Vaccine ( season) 2025 03/23/2022, 10/06/2021, 02/23/2021, Additional history exists Influenza Vaccine (#1) 2025 , 09/06/2023, 08/29/2022, Additional history exists Hemoglobin 03/03/2026 03/03/2025, 02/24, [...] this topic Medical Devices Implanted Type Area Fan Runner Device Identifier Shelf Expiration Date Model / Serial / Lot Mesh Ventral Hernia Soft Square [id number] - [id number] Implanted:Qty: 1 on 11/29/2022 by Pita Clark MD MPH at [facility] Mesh N/A: Abdomen [employer] 05/23/2027 [id number] / / [id number] Description:Verified by RK, ROBBY and JM. Procedures * Due to [place] [employer] law, this organization might not be sharing [...] to Health Maintenance Results * Due to [place] [employer] law, this organization might not be sharing negative HIV tests. * (ABNORMAL) CBC Auto Differential (03/03/2025 11:05 AM EDT) WBC 8.9 3.8 - 10.8 10*3/uL 03/03/2025 4:22 PM EDT [facility] RBC 4.18 3.80 - 5.10 10*6/uL 03/03/2025 4:22 PM EDT [facility] Hemoglobin 12.4 11.7 - 15.5 g/dL 03/03/2025 4:22 PM EDT [facility] Hematocrit 38.4 35.0 - 45.0 % 03/03/2025 4:22 PM EDT [facility] MCV 91.9 80.0 - 100.0 fL 03/03/2025 4:22 PM EDT [facility] MCH 29.7 27.0 - 33.0 pg 03/03/2025 4:22 PM EDT [facility] MCHC 32.3 32.0 - 36.0 g/dL 03/03/2025 4:22 PM EDT [facility] RDW 15.0 11.0 - 15.0 % 03/03/2025 4:22 PM EDT [facility] Platelets 323 140 - 400 10*3/uL 03/03/2025 4:22 PM EDT [facility] MPV 11.1 7.5 - 12.5 fL 03/03/2025 4:22 PM EDT [facility] Neutrophil % 50.4 % 03/03/2025 4:22 PM EDT [facility] Immature Grans % 0.3 0.0 - 0.9 % 03/03/2025 4:22 PM EDT [facility] Lymphocyte % 36.5 % 03/03/2025 4:22 PM EDT [facility] Monocyte % 9.0 % 03/03/2025 4:22 PM EDT [facility] Eosinophil % 2.9 % 03/03/2025 4:22 PM EDT [facility] Basophil % 0.9 % 03/03/2025 4:22 PM EDT [facility] Neutrophil # 4.49 1.50 - 7.80 10*3/uL 03/03/2025 4:22 PM EDT [facility] Immature Grans # 0.03 <=0.03 10*3/uL 03/03/2025 4:22 PM EDT [facility] Lymphocyte # 3.30 0.85 - 3.90 10*3/uL 03/03/2025 4:22 PM EDT [facility] Monocyte # 0.80 0.20 - 0.95 10*3/uL 03/03/2025 4:22 PM EDT [facility] Eosinophil # 0.30 0.02 - 0.50 10*3/uL 03/03/2025 4:22 PM EDT [facility] Basophil # 0.10 0.00 - 0.20 10*3/uL 03/03/2025 4:22 PM EDT [facility] nRBC % 0.4 /100 WBCs 03/03/2025 4:22 PM EDT [facility] nRBC # 0.04(H) <0.01 10*3/uL 03/03/2025 4:22 PM EDT [facility] Blood Structure of peripheral vein / Unknown Venipuncture / Unknown 03/03/2025 11:05 AM EDT 03/03/2025 11:05 AM EDT us Eveline Calderon MD LAB BLOOD ORDERABLES Final Resul t [facility] [address] [place] [address], * (ABNORMAL) Comprehensive Metabolic Panel (03/03/2025 11:05 AM EDT) NA 139 135 - 145 mmol/L 03/03/2025 12:32 PM EDT [facility] K 5.5(H) 3.5 - 5.3 mmol/L 03/03/2025 12:32 PM EDT [facility] Cl 107 98 - 107 mmol/L 03/03/2025 12:32 PM EDT [employer] [facility] CO2 20(L) 22 - 32 mmol/L 03/03/2025 12:32 PM EDT [employer] [facility] Anion Gap 12 5 - 15 [place] MANUAL 03/03/2025 12:32 PM EDT [employer] [facility] Glucose 278(H) 65 - 99 mg/dL 03/03/2025 12:32 PM EDT [employer] [facility] Creatinine 2.19(H) 0.50 - 1.20 mg/dL 03/03/2025 12:32 PM EDT [employer] [facility] Calcium 9.9 8.6 - 10.5 mg/dL 03/03/2025 12:32 PM EDT [employer] [facility] Total Protein 6.9 6.0 - 8.0 g/dL 03/03/2025 12:32 PM EDT [employer] [facility] Albumin 3.5 3.5 - 5.2 g/dL 03/03/2025 12:32 PM EDT [facility] Bilirubin, Total 0.3 0.2 - 1.2 mg/dL 03/03/2025 12:32 PM EDT [facility] Alkaline Phosphatase 111 35 - 129 U/L 03/03/2025 12:32 PM EDT [employer] [facility] AST 20 10 - 40 U/L 03/03/2025 12:32 PM EDT [employer] [facility] ALT 15 10 - 40 U/L 03/03/2025 12:32 PM EDT [employer] [facility] BUN 57(H) 7 - 23 mg/dL 03/03/2025 12:32 PM EDT [facility] eGFR 24(L) >=60 mL/min/1 .73m2 [facility] MANUAL 03/03/2025 12:32 PM EDT [facility] Comment:The estimated glomer [...] Globulin, Total 3.4 2.1 - 4.2 g/dL [facility] MANUAL 03/03/2025 12:32 PM EDT [facility] A/G Ratio 1.0(L) 1.5 - 3.0 [facility] MANUAL 03/03/2025 12:32 PM EDT [facility] Blood Structure of peripheral vein / Unknown Venipuncture / Unknown 03/03/2025 11:05 AM EDT 03/03/2025 11:05 AM EDT us Eveline Calderon MD LAB BLOOD ORDERABLES Final Resul t [facility] [address] [place] [address], * (ABNORMAL) Phosphorus (12/29/2022 5:16 AM EST) Phosphorus 2.2(L) 2.5 - 4.5 mg/dL 12/29/2022 6:12 AM EST [facility] Blood Structure of peripheral vein / Unknown Venipuncture / Unknown 12/29/2022 5:16 AM EST 12/29/2022 5:38 AM EST us Maycol A. Mark MD LAB BLOOD ORDERABLES Final Resu lt [facility] [address] [place] [address], * (ABNORMAL) Hemoglobin A1c (05/10/2017 4:19 PM EDT) Hemoglobin A1C 6.8(H) <5.7 [facility] Comment: UNITS OF MEASURE: % of total [...] for children. eAG (MG/DL) 148 () (calc) [facility] eAG (MMOL/L) 8.2 () (calc) [facility] 05/10/2017 4:19 PM EDT 05/10/2017 5:43 PM EDT Eveline Calderon MD LAB BLOOD ORDERABLES Final Resul t Performing Organization Address City/[facility]/ZIP Co de Phone Number DAHIANA CLANTON [address], [place] [address], * Vitamin D, 25-Hydroxy, Total, Immunoassay (07/04/2012 11:33 AM EDT) Vitamin D 25 Oh 41 30 - 100 ng/mL [facility] Comment: Vitamin D Status 25-OH Vitamin D Deficiency: <10 ng/mL Insufficiency: 10-30 ng/mL Sufficiency: 30-100 ng/mL Toxicity: >100 ng/mL 07/04/2012 11:3 3 AM EDT 07/04/2012 12:01 PM EDT us Ricardo Mejia MD LAB BLOOD ORDERABLES Final Resul t Performing Organization Address City/[facility]/ZIP Co de Phone Number [facility] [address] [place] [address] * PTH, Intact (without Calcium) (07/04/2012 11:33 AM EDT) Parathyroid Intact 60 12 - 65 pg/mL [facility] 07/04/2012 11:3 3 AM EDT 07/04/2012 12:01 PM EDT Ricardo Mejia MD LAB BLOOD ORDERABLES Final Resul t Performing Organization Address [facility] Co de Phone Number [facility] [address] [place] [address] from Last 3 Months or Most Recently Relevant to Health Maintenance Additional Health Concerns Infection Onset Date 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
--- OUTSIDE RECORDS SUMMARY | 2025-08-27 15:58 | XMS_ITS | Clinical Summary ---
Author Organization [facility] Address [address] [place] [address] Phone Care Team Providers Care Security Services Specialist Name Role Phone Os, Roxy SHOULDER JOINER Primary Care Provider Unavailab le Allergies Active [...] Date Type Department Care Team Description 08/27/2025 Telephone [facility] [address] [address] Vicente Benson MD 08/25/2025 Orders Only [facility] [address] [address] Vicente Benson MD 08/08/2025 Orders Only [facility] [address] [place] [address] Vicente Benson MD Stage 3a chronic kidney disease (HCC) 06/11/2025 3:00 PM EDT Office Visit [facility] [address] [place] [address] Vicente Benson MD Chronic kidney disease, stage 4 (severe) (HCC) (Primary Dx) 06/11/2025 Telephone [facility] [address] [address] Vicente Benson MD 05/28/2025 Orders Only [facility] [address] [place] [address] Vicente Benson MD Stage 3b chronic kidney disease (HCC); Liver transplant status (HCC); Other acute kidney failure (HCC); Other proteinuria 05/27/2025 Telephone [facility] [address] [address] Vicente Benson MD from Last 3 Months [...] Visit [facility] [address] [place] [phone] [place] [address] [address] 09/11/2025 Orders Only [facility] [address] [place] [phone] Vicente Benson MD [address] [address] Chronic kidney disease, stage 4 (severe) (HCC) Health Maintenance Due Date Last Done Comments Breast Cancer Screening 1955 Colorectal Cancer Screening: Annual FOBT 2003 Colorectal Cancer Screening: Colonoscopy 2003 Colorectal Cancer Screening: Sigmoidoscopy 2003 Diabetes: Ophthalmology Exam 01/30/2022 Diabetes: Pedal Pulse Checked 01/30/2022 Diabetes: Sensory Foot Exam 01/30/2022 Diabetes: Visual Foot Exam 01/30/2022 Influenza Vaccine (#1) 2025 , 08/19/2024, 09/02/2020, Additional history exists Diabetes: Hemoglobin A1C 11/24/2025 08/25/2025, 04/26 Pneumococcal Vaccine: 50+ Years Completed 11/25/2019, 02/14/2016, 02/14/2016, Additional history exists Pneumococcal Vaccine: Peds (0 to 5 Years) and At-Risk Patients (6 to 49 Years) Discontinued 11/25/2019, 02/14/2016, 02/14/2016, Additional history exists Hepatitis B Vaccine Aged Out No longe r eligible based on patient's age to complete this topic Procedures Procedure Name Priority Date/Time Associated Diagnosis Comments ALBUMIN, URINE, RANDOM Routine 08/27/2025 2:22 PM EDT PROTEIN / CREATININE RATIO, URINE Routine 08/27/2025 2:22 PM EDT Chronic kidney disease, stage 4 (severe) (HCC) URINALYSIS WITH MICROSCOPIC Routine 08/27/2025 2:22 PM EDT Stage 3a chronic kidney disease (HCC) CALCIUM Routine 08/25/2025 2:54 PM EDT CREATININE, BLOOD Routine 08/25/2025 2:5 4 PM EDT BUN Routine 08/25/2025 2:54 PM EDT ELECTROLYTE PANEL Routine 08/25/2025 2:5 4 PM EDT PTH, INTACT (HC) Routine 08/25/2025 2:54 PM EDT URIC ACID Routine 08/25/2025 2:54 PM EDT Chronic kidney disease, stage 4 (severe) (HCC) FERRITIN Routine 08/25/2025 2:54 PM EDT Chronic kidney disease, stage 4 (severe) (HCC) IRON PANEL (FE, TIBC, TSAT) Routine 08/25/2025 2:54 PM EDT Chronic kidney disease, stage 4 (severe) (HCC) HEMOGLOBIN A1C Routine 08/25/2025 2:54 PM EDT Chronic kidney disease, stage 4 (severe) (HCC) PHOSPHATE ( PHOSPHORUS) Routine 08/25/2025 2:54 PM EDT Chronic kidney disease, stage 4 (severe) (HCC) MAGNESIUM Routine 08/25/2025 2:54 PM EDT Chronic kidney disease, stage 4 (severe) (HCC) CBC AND DIFFERENTIAL Routine 08/25/2025 2:54 PM EDT Chronic kidney disease, stage 4 (severe) (HCC) from Last 3 Months Results * (ABNORMAL) Urinalysis with microscopic (08/27/2025 2:22 PM EDT) Color Urine Yellow See orde r comments Appearance Urine Clear See order comments pH Urine 6.0 5.0 - 9.0 See order comments Glucose Urine Negative Negative mg/dL See order comments Blood, Urine Negative Negative See ord er comments Specific [place] Urine 1.015 1.005 - 1.025 See order comments Protein Urine 300 (3+)(A) Neg-Trace mg/dL See order comments Ketones, Urine Negative Negative mg/dL See order comments Nitrite, Urine Negative Negative See o rder comments Leukocyte Esterase Urine Negative Negative See order comments Urine specimen (specimen) Urine specimen obtained by clean catch procedure / Unknown 08/27/2025 2:22 PM EDT 08/27/2025 2:22 PM EDT Narrative [place] - 08/27/2025 3:10 PM EDT SPECIMEN IS GREATER THEN 24 HOURS OLD us Vicente Benson MD LAB URINE ORDERABLES Final Result Performing Organization Address [facility] de Phone Number [facility] See order comments [place] [address] * (ABNORMAL) Creatinine (08/25/2025 2:54 PM EDT) Creatinine Serum 2.39(H) 0.5 - 1.4 mg/dL See order comments eGFR (Calc) 20 See orde r comments Comment: Chronic Kidney Disease: Estimated GFR < 60 mL/min/1.73m2 Severe Kidney Disease: Estimated GFR < 15 mL/min/1.73m2 08/25/2025 2:54 PM EDT 08/25/2025 2:54 PM EDT us Vicente Benson MD LAB BLOOD ORDERABLES Final Result Performing Organization Address [facility] Phone Number MESA See order comments [place] [address] * (ABNORMAL) PTH, Intact (08/25/2025 2:54 PM EDT) Parathyroid Hormone, Intact 95.0(H) 8.7 - 77.1 pg/mL See order comments 08/25/2025 2:54 PM EDT 08/25/2025 2:54 PM EDT Vicente Benson MD LAB HISTORICA [id number] RESULTS Final Result Performing Organization Address [facility] de Phone Number [place] See order comments [place] [address] * Iron Panel (Fe, TIBC, TSAT) (08/25/2025 2:54 PM EDT) Iron 94 30 - 160 mcg/dL See order comments TIBC 291 228 - 428 mcg/dL See order comments Iron Saturation (TSat) 32 15 - 50 % See order comments UIBC 197 ug/dL See order comments Blood Venous blood / Unknown 08/25/2025 2:54 PM EDT 08/25/2025 2:54 PM EDT us Vicente Benson MD LAB BLOOD ORDERABLES Final Result [place] See order comments [place] [address] * (ABNORMAL) CBC and Differential (08/25/2025 2:54 PM EDT) WBC 8.9 4.8 - 10.8 X10*3/uL See order comments RBC 4.04(L) 4.20 - 5.50 X10*6/uL See order comments Hgb 11.9(L) 12.0 - 16.0 g/dl See order comments Hematocrit 37.3 37.0 - 47.0 % See order comments MCV 92.3 80.0 - 98.0 fL See order comments MCH 29.5 27.0 - 33.0 pg See order comments MCHC 31.9 31.0 - 35.0 g/dl See order comments RDW 14.4 11.0 - 16.0 % See order comments Platelets 359 160 - 400 X10*3/uL See order comments MPV 10.5 9.4 - 12.3 fL See order comments Neutrophils % Auto 44.3(L) 45 - 73 % See order comments Immature Granulocytes 0.2 0.0 - 0.4 % See order comments Lymphocytes Relative 36.8 20 - 40 % See order comments Monocytes 13.0(H) 2 - 11 % See order comments Eosinophils Relative 4.6(H) 0 - 4 % See order comments Basophils Relative 1.1 0 - 2 % See order comments nRBC Count 0.3(H) 0.0 - 0.2 /100WBC See order comments Neutrophils Absolute 4.0 2.0 - 8.3 x10*3/uL See order comments Immature Grans (Absolute) 0.02 0.00 - 0.03 X10*3/uL See order comments Lymphocytes Absolute 3.3 1.2 - 4.9 X10*3/uL See order comments Monocytes Absolute 1.2 0.1 - 1.2 X10*3/uL See order comments Eosinophils Absolute 0.4 0.0 - 0.4 X10*3/uL See order comments Basophils Absolute 0.1 0.0 - 0.2 X10*3/uL See order comments NRBC Absolute 0.030(H) 0.0 - 0.012 X10*3/uL See order comments Blood Venous blood / Unknown 08/25/2025 2:54 PM EDT 08/25/2025 2:54 PM EDT Vicente Benson MD LAB BLOOD ORDERABLES Final Result Performing Organization Address City/State/[facility] Co de Phone Number [facility] See order comments [place] [address] * Uric Acid (08/25/2025 2:54 PM EDT) Uric Acid 4.3 2.4 - 5.7 mg/dL See order comments Blood Venous blood / Unknown 08/25/2025 2:54 PM EDT 08/25/2025 2:54 PM EDT Vicente Benson MD LAB BLOOD ORDERABLES Final Result Performing Organization Address City/[facility] Co de Phone Number [place] See order comments [place] [address] * (ABNORMAL) BUN (08/25/2025 2:54 PM EDT) BUN 51(H) 9 - 16 mg/dL See order comments 08/25/2025 2:54 PM EDT 08/25/2025 2:54 PM EDT Vicente Benson MD LAB BLOOD ORDERABLES Final Result Performing Organization Address City/[facility] Co de Phone Number [place] See order comments [place] [address] * Phosphorus (08/25/2025 2:54 PM EDT) Phosphorus, Serum 3.6 2.7 - 4.5 mg/dL See order comments Blood Venous blood / Unknown 08/25/2025 2:54 PM EDT 08/25/2025 2:54 PM EDT us Vicente Benson MD LAB BLOOD ORDERABLES Final Result Performing Organization Address [facility] Co de Phone Number [facility] See order comments [place] [address] * Magnesium (08/25/2025 2:54 PM EDT) Pathologist [facility] Magnesium 1.8 1.6 - 2.6 mg/dL See order comments Blood Venous blood / Unknown 08/25/2025 2:54 PM EDT 08/25/2025 2:54 PM EDT us Vicente Benson MD LAB BLOOD ORDERABLES Final Result Performing Organization Address [facility] Phone Number MESA See order comments [place] [address] * (ABNORMAL) Hemoglobin A1c (08/25/2025 2:54 PM EDT) [facility] Hemoglobin A1C 9.2(H) <6.0 % See o rder comments Comment: Hemoglobin A1C Reference Range Adults: 4.8 - 6.0 % Non diabetic: < 6.0 % Goal: < 7.0 % Additional Action Suggested: > 8.0 % Note: Hemoglobin A1c results are invalid for patients with abnormal amounts of HbF. Blood transfusions may impact the HbA1c concentration in the patient sample. Estimated Average Glucose 217 mg/dL See order comments Comment: eAG = Estimated average glucose which is %A1C expressed as average glucose, using the formula of the [id number] Average Glucose study (ADAG), Diabetes Care, Vol.31,#8, Jun. 2007 Blood Venous blood / Unknown 08/25/2025 2:54 PM EDT 08/25/2025 2:54 PM EDT Result Flynn Benson MD LAB BLOOD ORDERABLES Final Result Performing Organization Address [facility] Co ri Phone Number M[facility]A See order comments [place] [address] * Ferritin (08/25/2025 2:54 PM EDT) Ferritin 89 10 - 250 ng/mL See order comments Blood Venous blood / Unknown 08/25/2025 2:54 PM EDT 08/25/2025 2:54 PM EDT us Vicente Benson MD LAB BLOOD ORDERABLES Final Result Performing Organization Address [facility]/ZIP Co de Phone Number [facility] See order comments [place] [address] * Calcium (08/25/2025 2:54 PM EDT) Calcium 9.8 8.4 - 10.2 mg/dL See order comments 08/25/2025 2:54 PM EDT 08/25/2025 2:54 PM EDT us Vicente Benson MD LAB BLOOD ORDERABLES Final Result Performing Organization Address [facility] de Phone Number [facility] See order comments [place] [address] * (ABNORMAL) Electrolyte panel (08/25/2025 2:54 PM [...] BLOOD ORDERABLES Final Result Performing Organization Address City/[facility] Co de Phone Number [facility] See order comments [place] [address] from Last 3 Months Insurance [employer] [employer] MCR/ANGIE ([id number]) [employer] [facility] Medicare Care Teams Security Services Specialist Relationship Specialty Start Date End Date Anuj, DAMON Ramsey [address] [place] [address] PCP - General Geriatric Medicine 07/17/24
--- OUTSIDE RECORDS SUMMARY | 2025-09-11 20:00 | XMS_ITS | Clinical Summary ---
Author Organization Unknown Care Team Providers Care Senior Lead Project Manager Name Role Phone DEANNA PENA, MARTHA Unavailable Unavailable CHADWICK MAGAÑA, FABIÁN Unavailable Unavailable Payers Payer Name Policy Type Policy Number Effective Date Expira tion Date [facility] ELDER CARE PLAN - [place] [id number] MEDICAID [facility] [id number] MEDICARE - [facility] [id number] Problems Condition Name Condition Details Condition Category [...] 05-07 00:00: 00 05-28 23:59 :00 No [id number] Per instruc tions 2 TIMES DAILY Per instructio ns 2 TIMES DAILY (route: subcutaneo us) Med Classific ation: Endocrine Lantus Solostar U-100 Insulin 100 unit/mL (3 mL) subcutaneou s pen 05-07 00:00: 05-21 00:00 :00 No [id number] Per instruc tions Per instructio ns (route: subcutaneo us) Med Classific ation: Endocrine repaglinide 1 mg tablet 05-07 00:00: 00 Yes [id number] 1 mg 3 TIMES DAILY 1 mg 3 TIMES DAILY (route: oral) Med Classific ation: Endocrine allopurinol 300 mg tablet 04-22 00:00: 00 Yes [id number] 300 mg DAILY 300 mg DAILY (route: oral) Med Classific ation: Gout and Hyperuric emia Therapy anastrozole 1 mg tablet 04-22 00:00: 00 Yes [id number] 1 mg DAILY 1 mg DAVID Y (route: oral) Med Classific ation: Antineopl astics atorvastati n 40 mg tablet 04-22 00:00: 00 Yes [id number] 40 mg DAILY 40 mg DAILY (route: oral) Med Classific ation: Cardiovas cular Therapy Agents Calcium Antacid 200 mg (as calcium carbonate 500 mg) chewable tablet 04-22 00:00: 00 Yes [id number] 2 tablet DAILY 2 tablet DAILY (route: oral) Med Classific ation: Gastroint estinal Therapy Agents diltiazem CD 180 mg capsule,ext ended release 24 hr 04-22 00:00: 00 Yes [id number] 180 mg DAILY 180 mg DAILY (route: oral) Med Classific ation: Cardiovas cular Therapy Agents Eliquis 5 mg tablet 04-22 00:00: 00 Yes [id number] 5 mg 2 TIMES DAILY 5 mg 2 TIMES DAILY (route: oral) Med Classific ation: Hematolog ical Agents levothyroxi ne 88 mcg tablet 04-22 00:00: 00 Yes [id number] 88 mcg DAILY 88 mcg DAILY (route: oral) Med Classific ation: Endocrine metoprolol tartrate 25 mg tablet 04-22 00:00: 00 Yes [id number] 25 mg DAILY 25 mg DAILY (route: oral) Med Classific ation: Cardiovas cular Therapy Agents mycophenola te mofetil 250 mg capsule 04-22 00:00: 00 Yes [id number] 250 mg 2 TIMES DAILY 250 mg 2 TIMES DAILY (route: oral) Med Classific ation: Immunosup pressive Agents tacrolimus 0.5 mg capsule, immediate-r elease 04-22 00:00: 00 Yes [id number] 0.5 mg 2 TIMES DAILY 0.5 mg 2 TIMES DAILY (route: oral) Med Classific ation: Immunosup pressive Agents ergocalcife rol (vitamin D2) 1,250 mcg (50,000 unit) capsule 04-22 00:00: 00 05-21 00:00 :00 No [id number] Per instruc tions Per instructio ns (route: oral) Med Classific ation: Electroly te Balance-N utritiona l Products repaglinide 0.5 mg tablet 05-21 00:00: 00 Yes [id number] 0.5 mg 2 TIMES DAILY 0.5 mg 2 TIMES DAILY (route: oral) Med Classific ation: Endocrine Trulicity 3 mg/0.5 mL subcutaneou s pen injector 05-21 00:00: 00 05-28 23:59 :00 No [id number] 3 mg WEEKLY 3 mg WEEKLY (route: subcutaneo us) Med Classific ation: Endocrine Vitamin D3 25 mcg (1,000 unit) capsule 05-21 00:00: 00 Yes [id number] 25 mcg DAILY 25 mcg DAILY (route: oral) Med Classific ation: Electroly te Balance-N utritiona l Products Lantus Solostar U-100 Insulin 100 unit/mL (3 mL) subcutaneou s pen 05-29 00:00: 00 01-14 23:59 :00 No [id number] 34 unit DAILY 34 unit DAILY (route: subcutaneo us) Med Classific ation: Endocrine Trulicity 4.5 mg/0.5 mL subcutaneou s pen injector 05-29 00:00: 00 Yes [id number] 4.5 mg WEEKLY 4.5 mg WEEKLY (route: subcutaneo us) Med Classific ation: Endocrine Lantus Solostar U-100 Insulin 100 unit/mL (3 mL) subcutaneou s pen 01-14 00:00: 00 Yes [id number] 37 unit DAILY 37 unit DAILY (route: subcutaneo us) Med Classific ation: Endocrine Vital Signs Vital Name Observation Time Observation Value Commen ts Temperature 2025-07-18 11:46:00.000 98.6 [degF] Pulse 2025-07-18 11:46:00.000 60 /min O2 Saturation (%) 2025-07-18 11:47:00.000 97 % Respirations 2025-07-18 11:46:00.000 18 /min Systolic Blood Pressure 2025-07-18 11:46:00.000 130 mm [Hg] Diastolic Blood Pressure 2025-07-18 11:46:00.000 70 mm [Hg] Plan of Treatment Planned Activity [...] MANAGEMENT.] Future Scheduled Test SKILLED NU RSE FOR O/A OF GENERAL HEALTH STATUS OF PAIN, CARDIAC, RESPIRATORY, GASTROINTESTINAL, GENITOURINARY, SKIN, NEUROLOGIC, ENDOCRINE SYSTEMS TO IDENTIFY CHANGES ASSOCIATED WITH EXACERBATION FOR EARLY INTERVENTION OF COMPLICATIONS WEEKLY. [code = SKILLED NURSE FOR O/A OF GENERAL HEALTH STATUS OF PAIN, CARDIAC, RESPIRATORY, GASTROINTESTINAL, GENITOURINARY, SKIN, NEUROLOGIC, ENDOCRINE SYSTEMS TO IDENTIFY CHANGES ASSOCIATED WITH EXACERBATION FOR EARLY INTERVENTION OF COMPLICATIONS WEEKLY.] Future Scheduled Test SKILLED NU RSE TO PERFORM HOME SAFETY AND FALL ASSESSMENT AND PROVIDE INSTRUCTION TO IMPLEMENT HOME SAFETY AND FALL PREVENTION STRATEGIES. [code = SKILLED NURSE TO PERFORM HOME SAFETY AND FALL ASSESSMENT AND PROVIDE INSTRUCTION TO IMPLEMENT HOME SAFETY AND FALL PREVENTION STRATEGIES.] Future Scheduled Test SKILLED NU RSE FOR OBSERVATION AND ASSESSMENT OF PATIENT S PAIN LEVEL AND EFFECTIVENESS OF PAIN MANAGEMENT REGIMEN. SKILLED NURSE TO INSTRUCT PATIENT/CAREGIVER REGARDING PHARMACOLOGIC AND NON-PHARMACOLOGIC PAIN CONTROL MEASURES. SKILLED NURSE TO REPORT TO PHYSICIAN IF PAIN IS UNCONTROLLED WITH CURRENT PAIN MANAGEMENT REGIMEN. [code = SKILLED NURSE FOR OBSERVATION AND ASSESSMENT OF PATIENT S PAIN LEVEL AND EFFECTIVENESS OF PAIN MANAGEMENT REGIMEN. SKILLED NURSE TO INSTRUCT PATIENT/CAREGIVER REGARDING PHARMACOLOGIC AND NON-PHARMACOLOGIC PAIN CONTROL MEASURES. SKILLED NURSE TO REPORT TO PHYSICIAN IF PAIN IS UNCONTROLLED WITH CURRENT PAIN MANAGEMENT REGIMEN.] Future Scheduled Test SKILLED NU RSE FOR ADMINISTRATION AND TEACHING OF PRESCRIBED INJECTION THERAPY FOR (SPECIFY NAME OF INJECTABLE MED) [code = SKILLED NURSE FOR ADMINISTRATION AND TEACHING OF PRESCRIBED INJECTION THERAPY FOR (SPECIFY NAME OF INJECTABLE MED)] Future Scheduled Test SKILLED NU RSE TO ASSESS PATIENT S PSYCHOSOCIAL STATUS TO IDENTIFY POTENTIAL ISSUES THAT MAY COMPLICATE THE PROVISION OF THE PLAN OF CARE INCLUDING THE PATIENT S ABILITY TO ACCESS COMMUNITY RESOURCES AND PSYCHOSOCIAL SUPPORT SERVICES. [code = SKILLED NURSE TO ASSESS PATIENT S PSYCHOSOCIAL STATUS TO IDENTIFY POTENTIAL ISSUES THAT MAY COMPLICATE THE PROVISION OF THE PLAN OF CARE INCLUDING THE PATIENT S ABILITY TO ACCESS COMMUNITY RESOURCES AND PSYCHOSOCIAL SUPPORT SERVICES.] Future Scheduled Test SKILLED NU RSE WILL MAINTAIN SITUATIONAL AWARENESS FOR SAFETY AND WILL NOTIFY CLINICAL DRIER UNLOADER AND PHYSICIAN/PROVIDER WITH ANY CHANGE IN CONDITION. [code = SKILLED NURSE WILL MAINTAIN SITUATIONAL AWARENESS FOR SAFETY AND WILL NOTIFY CLINICAL DRIER UNLOADER AND PHYSICIAN/PROVIDER WITH ANY CHANGE IN CONDITION.] Goal 2024-07-16 Patient Goal - TO MANAGE INS ULIN Goal 2024-09-15 Patient Goal - TO MANAGE INS ULIN Goal 2024-11-12 Patient Goal - TO MANAGE INS ULIN Goal 2025-01-13 Patient Goal - TO MANAGE INS ULIN Goal 2025-03-12 Patient Goal - TO MANAGE INS ULIN Goal 2025-05-13 Patient Goal - TO MANAGE INS ULIN Goal 2025-07-10 Patient Goal - TO MANAGE INS ULIN Goal Patient Goal - TO MANAGE INS ULIN Goal Provider Goal - A PLAN OF CARE WILL BE ESTABLISHED THAT MEETS PATIENT'S JAIL NEEDS AND INCLUDES PATIENT GOAL FOR HOME HEALTH. Goal Provider Goal - ALTERED MENTAL/BEHAVIORAL STATUS WILL BE IDENTIFIED PROMPTLY AND INTERVENTION INITIATED QUICKLY TO MINIMIZE ASSOCIATED RISKS THROUGHOUT CERTIFICATION PERIOD. Goal Provider Goal - CHANGE IN GENERAL HEALTH STATUS WILL BE IDENTIFIED AND REPORTED TO PHYSICIAN FOR PROMPT INTERVENTION TO MINIMIZE ASSOCIATED RISKS THROUGHOUT CERTIFICATION PERIOD. Goal Provider Goal - PATIENT/CAREGIVER WILL VERBALIZE/DEMONSTRATE EFFECTIVE HOME SAFETY AND FALL PREVENTION STRATEGIES THROUGHOUT CERTIFICATION PERIOD. Goal Provider Goal - PATIENT/CAREGIVER WILL DEMONSTRATE UNDERSTANDING OF PHARMACOLOGIC AND NONPHARMACOLOGIC PAIN CONTROL MEASURES AND PATIENT WILL HAVE IMPROVEMENT IN PAIN INTERFERING WITH ACTIVITY EVIDENCED BY PAIN AT A LEVEL THAT IS ACCEPTABLE TO THE PATIENT AND PAIN LEVEL WITHIN ESTABLISHED PARAMETERS BY END OF CERTIFICATION PERIOD. Goal Provider Goal - PATIENT WILL RECEIVE (SPECIFY NAME OF INJECTABLE MED) ORDERED. PATIENT/CAREGIVER WILL VERBALIZE/DEMONSTRATE KNOWLEDGE OF INJECTION THERAPY BY THE END OF THE CERTIFICATION PERIOD. Goal Provider Goal - PSYCHOSOCIAL NEEDS WILL BE IDENTIFIED AND PLAN IMPLEMENTED TO MINIMIZE RISK THROUGHOUT CERTIFICATION PERIOD. Goal Provider Goal - PATIENT WILL REMAIN SAFE IN THE COMMUNITY AND WILL BE FREE OF DANGER TO SELF AND OTHERS THROUGHOUT THE CERTIFICATION PERIOD. Progress Notes Progress Notes <paragraph>[Visit Date: 2024 by LISA STRONG LPN]:</paragraph><paragraph>ALERT AND ORIENTED</paragraph> <paragraph>[Visit Date: 2024 by FABIÁN GENAO RN]:</paragraph><paragraph>PT IS AOX3. PT IN [facility]ER[facility]UL SPIRITS . INSULIN ADMINISTERED PER MD ORDER.</paragraph><paragraph>THIS IS A 69 YEAR OLD FEMALE WITH [...] HAVE SUPPORTIVE FAMILY WHO LIVE NEARBY AND [facility] STAFF A CAREGIVER AVAILABLE. PATIENT DOES NOT UTILIZE DME. PATIENT RESOURCES INCLUDE REGULAR COMPANIONS FROM THE [place] PATIENT REQUIRES JAIL VISITS DAILY FOR FOR INSULIN ADMINISTRATION, MEDICATION EDUCATION.</paragraph><paragraph>PATIENT REMAINS HOMEBOUND DUE TO TAXING EFFORT TO LEAVE HOME SAFELY WITHOUT ASSISTANCE AND WEAKNESS.</paragraph> <paragraph>[Visit Date: 2024 by FABIÁN GENAO RN]:</paragraph><paragraph>NO SIGNS OR SYMPTOMS OF HYPER OR HYPOGLYCEMIA NOTED. INSULIN AND TRULICITY ADMINISTERED</paragraph> Encounters Start Date/Time End Date/Time Encounter Type Admission Type Attending Clinicians Care Facility Care Department Encounter ID Discharge Date Discharge Status Discharge Condition Discharge Reason Percent Goals Met 2025-07-15 00:00:00 2025-09-12 00:00:00 Outpatient ALFREDORTFABIÁN MARTINEZ [facility] [place] [id number] 0.00
--- OUTSIDE RECORDS SUMMARY | 2025-09-11 20:00 | XMS_ITS | Clinical Summary ---
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 Name Role Phone DEANNA PENA, MARTHA Unavailable Unavailable CHADWICK MAGAÑA, FABIÁN Unavailable Unavailable Payers Payer Name Policy Type Policy Number Effective Date Expira tion Date [place] ELDER CARE PLAN [place] [id number] MEDICAID [facility] [id number] MEDICARE - [facility] [id number] Problems Condition Name Condition Details Condition Category [...] 05-07 00:00: 00 05-28 23:59 :00 No [id number] Per instruc tions 2 TIMES DAILY Per instructio ns 2 TIMES DAILY (route: subcutaneo us) Med Classific ation: Endocrine Lantus Solostar U-100 Insulin 100 unit/mL (3 mL) subcutaneou s pen 05-07 00:00: 05-21 00:00 :00 No [id number] Per instruc tions Per instructio ns (route: subcutaneo us) Med Classific ation: Endocrine repaglinide 1 mg tablet 05-07 00:00: 00 Yes [id number] 1 mg 3 TIMES DAILY 1 mg 3 TIMES DAILY (route: oral) Med Classific ation: Endocrine allopurinol 300 mg tablet 04-22 00:00: 00 Yes [id number] 300 mg DAILY 300 mg DAILY (route: oral) Med Classific ation: Gout and Hyperuric emia Therapy anastrozole 1 mg tablet 04-22 00:00: 00 Yes [id number] 1 mg DAILY 1 mg DAVID Y (route: oral) Med Classific ation: Antineopl astics atorvastati n 40 mg tablet 04-22 00:00: 00 Yes [id number] 40 mg DAILY 40 mg DAILY (route: oral) Med Classific ation: Cardiovas cular Therapy Agents Calcium Antacid 200 mg (as calcium carbonate 500 mg) chewable tablet 04-22 00:00: 00 Yes [id number] 2 tablet DAILY 2 tablet DAILY (route: oral) Med Classific ation: Gastroint estinal Therapy Agents diltiazem CD 180 mg capsule,ext ended release 24 hr 04-22 00:00: 00 Yes [id number] 180 mg DAILY 180 mg DAILY (route: oral) Med Classific ation: Cardiovas cular Therapy Agents Eliquis 5 mg tablet 04-22 00:00: 00 Yes [id number] 5 mg 2 TIMES DAILY 5 mg 2 TIMES DAILY (route: oral) Med Classific ation: Hematolog ical Agents levothyroxi ne 88 mcg tablet 04-22 00:00: 00 Yes [id number] 88 mcg DAILY 88 mcg DAILY (route: oral) Med Classific ation: Endocrine metoprolol tartrate 25 mg tablet 04-22 00:00: 00 Yes [id number] 25 mg DAILY 25 mg DAILY (route: oral) Med Classific ation: Cardiovas cular Therapy Agents mycophenola te mofetil 250 mg capsule 04-22 00:00: 00 Yes [id number] 250 mg 2 TIMES DAILY 250 mg 2 TIMES DAILY (route: oral) Med Classific ation: Immunosup pressive Agents tacrolimus 0.5 mg capsule, immediate-r elease 04-22 00:00: 00 Yes [id number] 0.5 mg 2 TIMES DAILY 0.5 mg 2 TIMES DAILY (route: oral) Med Classific ation: Immunosup pressive Agents ergocalcife rol (vitamin D2) 1,250 mcg (50,000 unit) capsule 04-22 00:00: 00 05-21 00:00 :00 No [id number] Per instruc tions Per instructio ns (route: oral) Med Classific ation: Electroly te Balance-N utritiona l Products repaglinide 0.5 mg tablet 05-21 00:00: 00 Yes [id number] 0.5 mg 2 TIMES DAILY 0.5 mg 2 TIMES DAILY (route: oral) Med Classific ation: Endocrine Trulicity 3 mg/0.5 mL subcutaneou s pen injector 05-21 00:00: 00 05-28 23:59 :00 No [id number] 3 mg WEEKLY 3 mg WEEKLY (route: subcutaneo us) Med Classific ation: Endocrine Vitamin D3 25 mcg (1,000 unit) capsule 05-21 00:00: 00 Yes [id number] 25 mcg DAILY 25 mcg DAILY (route: oral) Med Classific ation: Electroly te Balance-N utritiona l Products Lantus Solostar U-100 Insulin 100 unit/mL (3 mL) subcutaneou s pen 05-29 00:00: 00 01-14 23:59 :00 No [id number] 34 unit DAILY 34 unit DAILY (route: subcutaneo us) Med Classific ation: Endocrine Trulicity 4.5 mg/0.5 mL subcutaneou s pen injector 05-29 00:00: 00 Yes [id number] 4.5 mg WEEKLY 4.5 mg WEEKLY (route: subcutaneo us) Med Classific ation: Endocrine Lantus Solostar U-100 Insulin 100 unit/mL (3 mL) subcutaneou s pen 01-14 00:00: 00 Yes [id number] 37 unit DAILY 37 unit DAILY (route: [...] AWARENESS FOR SAFETY AND WILL NOTIFY CLINICAL MEAT SUPERVISOR AND PHYSICIAN/PROVIDER WITH ANY CHANGE IN CONDITION. [code = SKILLED NURSE WILL MAINTAIN SITUATIONAL AWARENESS FOR SAFETY AND WILL NOTIFY CLINICAL MEAT SUPERVISOR AND PHYSICIAN/PROVIDER WITH ANY CHANGE IN CONDITION.] [...] HAVE SUPPORTIVE FAMILY WHO LIVE NEARBY AND [facility] STAFF A CAREGIVER AVAILABLE. PATIENT DOES NOT UTILIZE DME. PATIENT RESOURCES INCLUDE REGULAR COMPANIONS FROM THE [place] PATIENT REQUIRES JAIL VISITS DAILY [...] 2025-07-15 00:00:00 2025-09-12 00:00:00 Outpatient ALFREDORTFABIÁN MARTINEZ [facility] [id number] 0.00
== END 2025-08-27 14:20 | disposition home or self-care (01) ==
LOC: HO.LNP 14:19
PROVIDERS: Visit Provider Internal Medicine
DX: Z13.89 Encounter for screening for other disorder (principal)
CPT/HCPCS: 81001; 81003; 82043; 82570; 84156

== ENCOUNTER 2025-09-02 13:27 | Outpatient (REF) | payer OTHER, SELFPAY ==
[2025-09-02 15:29] LABS: Anion Gap 11 (12-20); Blood Urea Nitrogen 53 mg/dL (9-16); Calcium 9.5 mg/dL (8.4-10.2); Carbon Dioxide 26 mmol/L (22-29); Chloride 106 mmol/L (96-108); Estimated Glomerular Filt Rate 22; Potassium 4.7 mmol/L (3.3-5.1); Sodium 138 mmol/L (135-145)
== END 2025-09-02 13:28 | disposition home or self-care (01) ==
LOC: HO.LAB 13:27
PROVIDERS: PCP Internal Medicine; Visit Provider Internal Medicine
DX: N17.8 Other acute kidney failure (principal)
CPT/HCPCS: 36415; 80048